=== PATIENT | female | born 1940 | race Caucasian/White ===

== ENCOUNTER 2017-12-23 10:39 | Outpatient (CLI) | payer OTHER, SELFPAY ==
--- NOTE | 2017-12-23 10:33 | DI.RAD_ITS ---
SYMPTOM/DIAGNOSIS: PAIN RIGHT KNEE: The bony structures are normally mineralized. The joint spaces appear intact. There is a question regarding the possibility of a small joint effusion.
== END 2017-12-23 10:59 ==
PROVIDERS: PCP Nurse Practitioner; Referring Provider Nurse Practitioner; Visit Provider Orthopaedic Surgery
DX: M25.561 Pain in right knee (principal); I12.9 Hypertensive chronic kidney disease with stage 1 through stage 4 chronic kidney disease, or unspecified chronic kidney disease; N18.9 Chronic kidney disease, unspecified; M17.11 Unilateral primary osteoarthritis, right knee
CPT/HCPCS: 20610; 99214; 73560; J1040

== ENCOUNTER 2017-12-23 12:09 | Outpatient (REF) | payer OTHER, SELFPAY | END 2017-12-23 12:29 | LOC: LBN 12:09 | PROVIDERS: PCP Nurse Practitioner; Visit Provider Orthopaedic Surgery | DX: M25.561 Pain in right knee (principal); M25.461 Effusion, right knee | CPT/HCPCS: 89060 ==

== ENCOUNTER 2018-01-01 09:07 | Outpatient (CLI) | payer OTHER, SELFPAY ==
[2018-01-01 09:51] LABS: Abs Immature Grans 0.02 k/cumm (0.0-0.09); Absolute Basophil Count 0.04 k/cumm (0.0-0.2); Absolute Eosinophil Count 0.26 k/cumm (0.0-0.7); Absolute Monocyte Count 0.69 k/cumm (0.11-0.7); Absolute Neutrophil Count 4.73 k/cumm (1.2-6.7); Basophils % 0.5; Eosinophils % 3.2; HCT 41.4 % (36.0-46.0); HGB 13.4 g/dL (12.0-15.5); Immature Grans % 0.2; Lymphocytes % 30.3; Mean Corp. HGB Concentration 32.4 g/dL (32.0-36.0); Mean Corpuscular Hemoglobin 28.9 pg (27.0-33.0); Mean Corpuscular Volume 89.2 fL (80-95); Mean Platelet Volume 9.7 fL (8.0-11.0); Monocytes % 8.4; Neutrophils % 57.4; Platelet Count 256 x1000/uL (130-400); RBC 4.64 m/cumm (4.00-5.20); RBC Distribution Width 13.8 % (11.7-14.6); White Blood Cell Count 8.24 k/cumm (4.4-10.8)
[2018-01-01 10:18] LABS: ALT 12 U/L (12-78); AST 17 U/L (15-37); Albumin 3.7 g/dL (3.4-5.0); Alkaline Phosphatase 116 U/L (46-116); BUN 23 mg/dL (7-18); Bilirubin, Total 0.5 mg/dL (0.2-1.0); Calcium 8.9 mg/dL (8.5-10.1); Chloride 105 mmol/L (98-107); Cholesterol 169 mg/dL (50-200); Estimated GFR 53.91 (mL/min/1.73m2); Glucose 107 mg/dL (70-100); HDL Cholesterol 62 mg/dL (40-60); LDL CHOLESTEROL 94 mg/dL (<100); Potassium 4.3 mmol/L (3.5-5.1); Sodium 141 mmol/L (136-145); Total Protein 6.9 g/dL (6.4-8.2); Triglyceride 52 mg/dL (30-150)
== END 2018-01-01 09:27 ==
PROVIDERS: PCP Nurse Practitioner; Visit Provider Nurse Practitioner
DX: I10 Essential (primary) hypertension (principal); E78.5 Hyperlipidemia, unspecified; F32.9 Major depressive disorder, single episode, unspecified
CPT/HCPCS: 36415; 80053; 80061; 83721; 85025

== ENCOUNTER → 2018-03-04 09:45 | Outpatient (BNVA) | payer OTHER, SELFPAY | PROVIDERS: PCP Nurse Practitioner; Referring Provider Nurse Practitioner; Visit Provider Orthopaedic Surgery | DX: M25.561 Pain in right knee (principal); M17.11 Unilateral primary osteoarthritis, right knee; I12.9 Hypertensive chronic kidney disease with stage 1 through stage 4 chronic kidney disease, or unspecified chronic kidney disease; N18.9 Chronic kidney disease, unspecified | CPT/HCPCS: 20610; 99213; 99243; J1040 ==

== ENCOUNTER → 2018-06-30 10:17 | Outpatient (BNVA) | payer OTHER, SELFPAY | PROVIDERS: PCP Nurse Practitioner; Referring Provider Nurse Practitioner; Visit Provider Orthopaedic Surgery | DX: M23.91 Unspecified internal derangement of right knee (principal); Z96.652 Presence of left artificial knee joint; I12.9 Hypertensive chronic kidney disease with stage 1 through stage 4 chronic kidney disease, or unspecified chronic kidney disease; N18.9 Chronic kidney disease, unspecified | CPT/HCPCS: 20610; 99213; J1040 ==

== ENCOUNTER 2018-08-19 08:08 | Outpatient (CLI) | payer OTHER, SELFPAY ==
[2018-08-19 09:41] LABS: Hemoglobin A1C 6.2 % (4.5-6.2)
[2018-08-19 09:43] LABS: ALT 22 U/L (12-78); AST 12 U/L (15-37); Albumin 3.7 g/dL (3.4-5.0); Alkaline Phosphatase 125 U/L (46-116); BUN 20 mg/dL (7-18); Bilirubin, Total 0.4 mg/dL (0.2-1.0); CREATININE 0.95 mg/dL (0.55-1.02); Calcium 8.9 mg/dL (8.5-10.1); Calculated LDL 98 mg/dL; Chloride 106 mmol/L (98-107); Cholesterol 162 mg/dL (50-200); Estimated GFR 57.04 (mL/min/1.73m2); Glucose 109 mg/dL (70-100); HDL Cholesterol 44 mg/dL (40-60); Potassium 4.5 mmol/L (3.5-5.1); Sodium 141 mmol/L (136-145); Total Protein 7.3 g/dL (6.4-8.2); Triglyceride 101 mg/dL (30-150)
== END 2018-08-19 08:28 ==
PROVIDERS: PCP Nurse Practitioner; Visit Provider Nurse Practitioner
DX: E11.9 Type 2 diabetes mellitus without complications (principal); E78.5 Hyperlipidemia, unspecified; F32.9 Major depressive disorder, single episode, unspecified; I10 Essential (primary) hypertension; N18.3 Chronic kidney disease, stage 3 (moderate); R73.01 Impaired fasting glucose
CPT/HCPCS: 36415; 80053; 80061; 83721; 83036

== ENCOUNTER 2019-08-08 02:03 | Outpatient (CLI) | payer OTHER, SELFPAY ==
[2019-08-08 09:27] LABS: Hemoglobin A1C 5.8 % (3.8-5.6)
[2019-08-08 11:12] LABS: ALT 24 U/L (14-59); AST 16 U/L (15-37); Albumin 3.8 g/dL (3.4-5.0); Alkaline Phosphatase 91 U/L (46-116); Anion Gap 10.1 mmol/L (3-11); BUN 19 mg/dL (7-18); Bilirubin, Total 0.6 mg/dL (0.2-1.0); CO2 24.9 mmol/L (21.0-32.0); CREATININE 1.13 mg/dL (0.55-1.02); Calcium 9.1 mg/dL (8.5-10.1); Calculated LDL 101 mg/dL (<100); Chloride 105 mmol/L (98-107); Cholesterol 177 mg/dL (<200); Estimated GFR 46.69 (mL/min/1.73m2); Glucose 103 mg/dL (74-106); HDL Cholesterol 58 mg/dL (40-60); Potassium 4.5 mmol/L (3.5-5.1); Sodium 140 mmol/L (136-145); Total Protein 7.5 g/dL (6.4-8.2); Triglyceride 93 mg/dL (<150)
== END 2019-08-08 02:23 ==
PROVIDERS: PCP Nurse Practitioner; Visit Provider Nurse Practitioner
DX: E78.5 Hyperlipidemia, unspecified (principal); R73.09 Other abnormal glucose; N18.3 Chronic kidney disease, stage 3 (moderate)
CPT/HCPCS: 36415; 80053; 80061; 83036

== ENCOUNTER 2019-09-26 01:52 | Outpatient (CLI) | payer OTHER, SELFPAY ==
[2019-09-26 09:22] LABS: Anion Gap 10.1 mmol/L (3-11); BUN 25 mg/dL (7-18); CO2 23.9 mmol/L (21.0-32.0); CREATININE 0.96 mg/dL (0.55-1.02); Calcium 9.6 mg/dL (8.5-10.1); Chloride 106 mmol/L (98-107); Estimated GFR 56.21 (mL/min/1.73m2); Glucose 110 mg/dL (74-106); Potassium 4.1 mmol/L (3.5-5.1); Sodium 140 mmol/L (136-145); Vitamin B12 355 pg/mL (193-986)
[2019-09-26 09:23] LABS: TSH (W/Ref FT4) < 0.01 uIU/mL (0.36-3.74)
[2019-09-26 09:39] LABS: FREE T4 2.71 ng/dL (0.76-1.46)
== END 2019-09-26 02:12 ==
PROVIDERS: PCP Nurse Practitioner; Visit Provider Nurse Practitioner
DX: I10 Essential (primary) hypertension (principal); R41.3 Other amnesia; R79.9 Abnormal finding of blood chemistry, unspecified
CPT/HCPCS: 36415; 80048; 82607; 84439; 84443

== ENCOUNTER 2019-11-04 18:02 | Inpatient (IN) | payer OTHER, SELFPAY ==
[2019-11-04] VITALS (44 sets, daily range): BP systolic 115–143; BP diastolic 50–110; PULSE 93–118; RESP 16–37; TEMP 36.7; O2SAT 82–95
--- NOTE | 2019-11-04 18:15 | RT.EKG_ITS ---
APPROVED REPORT Exam: Resting ECG Patient Location: E HR:98 bpm ECG Measurements Heart Rate 98 AXIS ND 167 P 49 QRSd 97 QRS 98 QT 382 T 47 QTc 488 Conclusion Sinus rhythm...normal P axis, V-rate 60- 99 Anterior infarct, old...Q >40mS, abnormal ST-T, V2-V5 question ST depression, lateral leads...ST <-0.07mV, I aVL V5 V6
--- NOTE | 2019-11-04 18:48 | W.ED.GENAD ---
Discharge Plan Disposition Patient Disposition: OTHER Condition: Serious Discharge Details Clinical Impression: CHF (congestive heart failure) Primary Care Provider: Jinny Camacho ED Provider: Edward Andrade Home Meds and New Rx's Prescriptions: No Action flu vacc quad 2018-(6mos up) 60 mcg (15 mcg x 4)/0.5 mL suspension 0.5 ml IM ONCE Qty: 0.5 RF: 0 methimazole 10 mg tablet 20 mg PO DAILY RF: 0 atorvastatin 40 mg tablet 20 mg PO DAILY Qty: 45 RF: 3 fluoxetine 20 mg capsule 20 mg PO HS Qty: 90 RF: 3 lisinopril 20 mg tablet 20 mg PO DAILY Qty: 90 RF: 3 acetaminophen [Acetaminophen Extra Strength] 500 MG tablet 500 mg PO Q4H PRN Qty: 2 RF: 0 atenolol 25 mg tablet 12.5 mg PO BID RF: 0 Medical Decision Making 79-year-old female presents with 2-week history of worsening dyspnea. Denies any cardiac or pulmonary history. She presents initially with mild tachycardia and mild tachypnea. She is able to speak in full sentences does not appear to be in any acute distress. Clinically the differential includes but not excluded to CHF, PE, ACS, infectious process, etc. Will initiate cardiac work-up including a TSH with T4 reflex given new diagnosis of Graves'. Given the tachycardia and dyspnea will obtain CTA of the chest as opposed to chest x-ray. Laboratory values reveal a white count of 9.42 hemoglobin 11.3 hematocrit 36.4 platelet count 258. INR 1.1. Electrolytes unremarkable. BUN 15, creatinine 0.91 with a GFR 59.79. Glucose 119, magnesium 1.7. Initial troponin less than 0.05. BNP 16,181. TSH less than 0.01 with a free T4 of 1.14. Chest CTA reveals cardiomegaly most consistent with CHF, moderate right greater than left pleural effusions. Mild dependent subsegmental atelectasis. No pulmonary artery emboli are seen. Heart rate and blood pressure are trending downward. Patient given 40 IV Lasix and subsequently has urinated multiple times, at this point a total output of over 650 cc. Repeat troponin less than 0.05 Patient appears to be a new onset CHF. She continues to have dyspnea although she subsequently takes off her oxygen as she does not like the nasal cannula. She has to be reminded to keep it on. I believe with a BNP of over 16,000 keeping her in the hospital for diuresis and further work-up is reasonable. I will discuss this with our hospitalist team. In the meantime I was able to speak with her daughter, Lore, at [phone] to make her aware of her mother's visit and admission. Medical Records Medical records reviewed: Yes I reviewed the patient's medical records. Lab Data Lab results reviewed: Yes I reviewed the patient's lab results. Lab results narrative: Laboratory Tests Range/Units 11/04/19 11/04/19 11/04/19 18:40 18:40 18:40 WBC (4.4-10.8) 10^3/uL 9.42 RBC (3.93-5.22) 10^6/uL 4.11 Hgb (11.2-15.7) g/dL 11.3 Hct (36.0-46.0) % 36.4 MCV (80-95) fL 88.6 MCH (27.0-33.0) pg 27.5 MCHC (32.0-36.0) % 31.0 L RDW (11.7-14.6) % 14.0 Plt Count (130-400) 10^3/uL 258 MPV (8.0-11.0) fL 9.7 Immature Gran % 0.2 Neutrophils % 50.4 Lymphocytes % 34.9 Monocytes % 9.1 Eosinophils % 4.8 Basophils % 0.6 Nucleated RBC % % 0 Absolute Neutrophils (1.2-6.7) 10^3/uL 4.74 Absolute Lymphocytes (1.2-3.4) 10^3/uL 3.29 Absolute Monocytes (0.1-0.8) 10^3/uL 0.86 H Absolute Eosinophils (0.0-0.7) 10^3/uL 0.45 Absolute Basophils (0.0-0.2) 10^3/uL 0.06 PT (9.3-11.0) sec 11.1 H INR (0.9-1.1) 1.1 APTT (21.0-31.4) sec 22.3 Sodium (136-145) mmol/L 136 Potassium (3.5-5.1) mmol/L 3.7 Chloride (98-107) mmol/L 103 Carbon Dioxide (21.0-32.0) mmol/L 22.0 Anion Gap (3-11) mmol/L 11.0 BUN (7-18) mg/dL 15 Creatinine (0.55-1.02) mg/dL 0.91 Estimated GFR/1.73 m2 (mL/min/1.73m2) 59.79 Glucose (74-106) mg/dL 119 H Calcium (8.5-10.1) mg/dL 8.7 Magnesium (1.8-2.4) mg/dL 1.7 L Total Bilirubin (0.2-1.0) mg/dL 0.4 AST (15-37) U/L 16 ALT (14-59) U/L 21 Alkaline Phosphatase (46-116) U/L 125 H Troponin I (<0.06) ng/mL < 0.05 NT-Pro-B Natriuret Pep (<300) pg/mL 87285 H Total Protein (6.4-8.2) g/dL 7.4 Albumin (3.4-5.0) g/dL 3.4 TSH (0.36-3.74) uIU/mL Free T4 (0.76-1.46) ng/dL Range/Units 11/04/19 11/04/19 18:40 21:35 WBC (4.4-10.8) 10^3/uL RBC (3.93-5.22) 10^6/uL Hgb (11.2-15.7) g/dL Hct (36.0-46.0) % MCV (80-95) fL MCH (27.0-33.0) pg MCHC (32.0-36.0) % RDW (11.7-14.6) % Plt Count (130-400) 10^3/uL MPV (8.0-11.0) fL Immature Gran % Neutrophils % Lymphocytes % Monocytes % Eosinophils % Basophils % Nucleated RBC % % Absolute Neutrophils (1.2-6.7) 10^3/uL Absolute Lymphocytes (1.2-3.4) 10^3/uL Absolute Monocytes (0.1-0.8) 10^3/uL Absolute Eosinophils (0.0-0.7) 10^3/uL Absolute Basophils (0.0-0.2) 10^3/uL PT (9.3-11.0) sec INR (0.9-1.1) APTT (21.0-31.4) sec Sodium (136-145) mmol/L Potassium (3.5-5.1) mmol/L Chloride (98-107) mmol/L Carbon Dioxide (21.0-32.0) mmol/L Anion Gap (3-11) mmol/L BUN (7-18) mg/dL Creatinine (0.55-1.02) mg/dL Estimated GFR/1.73 m2 (mL/min/1.73m2) Glucose (74-106) mg/dL Calcium (8.5-10.1) mg/dL Magnesium (1.8-2.4) mg/dL Total Bilirubin (0.2-1.0) mg/dL AST (15-37) U/L ALT (14-59) U/L Alkaline Phosphatase (46-116) U/L Troponin I (<0.06) ng/mL < 0.05 NT-Pro-B Natriuret Pep (<300) pg/mL Total Protein (6.4-8.2) g/dL Albumin (3.4-5.0) g/dL TSH (0.36-3.74) uIU/mL < 0.01 L Free T4 (0.76-1.46) ng/dL 1.14 ECG Data Attestation: I personally reviewed and interpreted this ECG (s) as follows: Interpretation: Please see official report by Dr. Ren. Sinus rhythm, ventricular rate of 98, question mild ST depression, no STEMI. HPI General Mode of arrival: ambulatory. Date/Time Provider Initiated Documentation: 11/04/19 18:34. Limitations to Documentation: no limitations. Information obtained by: patient. HPI Narrative: This is a 79-year-old female with history of recently diagnosed Graves' disease, forgetfulness, depression, former smoker, hyperlipidemia, chronic kidney disease, hypertension, anxiety, GERD, presenting at the request of urgent care for ongoing and worsening dyspnea over the past 2 weeks. She denies fever, chest pain, productive cough, abdominal pain, nausea, vomiting, recent travel, sick contacts, pain or swelling in her legs. She reports a mild dry cough which she reports is near which she would describe as her baseline. She denies any cardiac history. She has never experienced anything like this before. Does not wear oxygen at home. Related Data Home Medications Medication Instructions Recorded Confirmed acetaminophen [Acetaminophen Extra 500 mg PO Q4H PRN #2 12/21/12 10/17/19 Strength] atorvastatin 40 mg tablet 20 mg PO DAILY #45 tab-cap 10/10/19 11/04/19 fluoxetine 20 mg capsule 20 mg PO HS #90 tab 10/10/19 11/04/19 lisinopril 20 mg tablet 20 mg PO DAILY #90 tab-cap 10/10/19 11/04/19 methimazole 10 mg tablet 20 mg PO DAILY tab 10/17/19 11/04/19 atenolol 25 mg tablet 12.5 mg PO BID tab 11/04/19 11/04/19 Previous Rx's Medication Instructions Recorded atorvastatin 40 mg tablet 20 mg PO DAILY #45 tab-cap 10/10/19 fluoxetine 20 mg capsule 20 mg PO HS #90 tab 10/10/19 lisinopril 20 mg tablet 20 mg PO DAILY #90 tab-cap 10/10/19 Allergies Allergy/AdvReac Type Severity Reaction Status Date / Time Sulfa (Sulfonamide Allergy Unknown ? Verified 10/10/19 11:24 Antibiotics) Penicillins Allergy RASH Verified 10/10/19 11:24 acetaminophen AdvReac Intermediate N,V Verified 10/10/19 11:24 meperidine AdvReac Unknown VOMITING Verified 10/10/19 11:24 hydrocodone bitartrate AdvReac NAUSEA/VOMI Verified 10/10/19 11:24 [From Vicodin] TING propoxyphene napsylate AdvReac NAUSEA/VOMI Verified 10/10/19 11:24 [From Darvocet-N 100] TING General Stated Complaint: SOB CHINTAN: 3 Review of Systems Constitutional Constitutional: Denies fatigue and Denies fever(s) ENT Ears, Nose, Mouth, and Throat: Denies neck pain and Denies sore throat Cardiovascular Cardiovascular: Denies chest pain and Reports dyspnea Respiratory Respiratory: Reports cough and Reports dyspnea Gastrointestinal Gastrointestinal: Denies abdominal pain, Denies nausea and Denies vomiting Genitourinary Genitourinary: Denies dysuria Musculoskeletal Musculoskeletal: Denies back pain, Denies neck pain, Denies numbness and Denies tingling Integumentary/Breasts Skin/Breast: Denies rash Neurologic Neurologic: Denies numbness and Denies tingling Endocrine Endocrine: Denies fatigue Hematologic/Lymphatic Hematologic/Lymphatic: Denies easy bleeding and Denies easy bruising [facility] Medical History Anxiety Benign hypertension CKD (chronic kidney disease) Depression Depression (04/14/14) Elevated hemoglobin A1c Hyperlipidemia Hyperthyroidism IFG (impaired fasting glucose) OA (osteoarthritis) Surgical History Extraction of cataract B/L Replacement of total knee joint (10/04/07) LEFT Family History Mother , ??? at age 56. Neoplasm Abdominal Father , Heart issues at age 77. Heart disease Myocardial infarction Neoplasm Colon CA dx'ed ??? Son Diabetes Daughter No problems noted. Social History Smoking/Tobacco Use Status: Former Tobacco Use Alcohol Intake: current Alcohol Intake frequency: holidays/special occasions only Drug use: Never Substance use type: does not use Caregiver/Support person: No Housing: apartment Number of Children: 2 Communication Needs: None current occupation: Retired Current gender identity: female What type of physical activity do you participate in: walking Duration: 15-30 minutes/day Frequency: daily Seatbelt use: always Water heater temp set <120 deg: Yes Working smoke detector in home: Yes Fire extinguisher in home: Yes Carbon monox detector in home: Yes Do you feel safe at home: Yes Exam Const General: cooperative, healthy appearing, comfortable and no acute distress Orientation: alert and awake [facility] Head: normal to inspection, normocephalic and atraumatic Face and sinus: normal facial exam Mouth: moist mucous membranes Eyes Conjunctivae: conjunctivae normal Sclera: sclerae normal Neck Neck: normal visual inspection, full ROM, trachea midline, supple and nontender Resp Effort & Inspection: normal respiratory effort and able to speak in complete sentences Auscultation: diminished lung sounds bilaterally in the lower lung wilkes and rales bilaterally in the mid lung wilkes and in the lower lung wilkes Cardio Rate: tachycardic (108) Rhythm: regular rhythm GI Palpation: soft and nontender Back/Spine/Pelvis Back: No back tenderness Skin General skin exam: no rashes or lesions noted Neuro General: patient alert, patient awake, moves all extremities and no focal motor deficits Speech: speech normal Motor: muscle tone normal throughout and strength 5/5 throughout Sensory Exam: no sensory deficits noted Extrem General: normal to inspection, full ROM, capillary refill normal, no pedal edema and no calf tenderness Psych Appearance: grossly normal Mental Status: mental status grossly normal Course Vital Signs Vital signs: Vital Signs Temperature 36.7 C 11/04/19 18:17 Pulse 106 H 11/04/19 18:17 Respiratory Rate 26 H 11/04/19 18:17 Blood Pressure 115/96 H 11/04/19 18:17 Pulse Oximetry 95 11/04/19 18:17 Temperature 36.7 C 11/04/19 18:17 Pulse 106 H 11/04/19 18:17 Respiratory Rate 24 11/04/19 18:24 Respiratory Effort 11/04/19 18:24 Respiratory Depth Normal 11/04/19 18:24 Respiratory Pattern Normal 11/04/19 18:24 Blood Pressure 115/96 H 11/04/19 18:17 Blood Pressure Position Supine 11/04/19 18:17 Pulse Oximetry 95 11/04/19 18:17 Oxygen Delivery Method Room Air 11/04/19 18:17 Oxygen Flow Rate 0 11/04/19 18:17 Pain Level 0 11/04/19 18:17
[2019-11-04 19:03] LABS: Abs Immature Grans 0.02 10^3/uL (0.0-0.06); Absolute Basophil Count 0.06 10^3/uL (0.0-0.2); Absolute Eosinophil Count 0.45 10^3/uL (0.0-0.7); Absolute Lymphocyte Count 3.29 10^3/uL (1.2-3.4); Absolute Monocyte Count 0.86 10^3/uL (0.1-0.8); Absolute Neutrophil Count 4.74 10^3/uL (1.2-6.7); Basophils % 0.6; Eosinophils % 4.8; HCT 36.4 % (36.0-46.0); HGB 11.3 g/dL (11.2-15.7); Immature Grans % 0.2; Lymphocytes % 34.9; MCH 27.5 pg (27.0-33.0); MCV 88.6 fL (80-95); MPV 9.7 fL (8.0-11.0); Monocytes % 9.1; Neutrophils % 50.4; Nucleated RBC 0 %; Platelet Count 258 10^3/uL (130-400); RBC 4.11 10^6/uL (3.93-5.22); RDW-SD 44.8 fL; WBC 9.42 10^3/uL (4.4-10.8)
[2019-11-04 19:18] LABS: INR 1.1 (0.9-1.1); PTT Activated 22.3 sec (21.0-31.4); Prothrombin Time 11.1 sec (9.3-11.0)
[2019-11-04 19:28] LABS: ALT 21 U/L (14-59); AST 16 U/L (15-37); Albumin 3.4 g/dL (3.4-5.0); Alkaline Phosphatase 125 U/L (46-116); BUN 15 mg/dL (7-18); Bilirubin, Total 0.4 mg/dL (0.2-1.0); CREATININE 0.91 mg/dL (0.55-1.02); Calcium 8.7 mg/dL (8.5-10.1); Chloride 103 mmol/L (98-107); Estimated GFR 59.79 (mL/min/1.73m2); Glucose 119 mg/dL (74-106); Magnesium 1.7 mg/dL (1.8-2.4); NT-proBNP 16181 pg/mL (<300); Potassium 3.7 mmol/L (3.5-5.1); Sodium 136 mmol/L (136-145); Total Protein 7.4 g/dL (6.4-8.2); Troponin I < 0.05 ng/mL (<0.06)
[2019-11-04] MEDS: Ondansetron 4 MG/2 ML VIAL IVP ×2 (19:36→20:59)
--- NOTE | 2019-11-04 19:54 | NUR.NOTE ---
Nursing Note: Patient rang call powell stating that she believes oxygen is making her sick, no no longer has oxygen flowing. Sats sitting around 88-91%. Provider aware.
[2019-11-04] MEDS: Normal Saline Flush 10 ML SYR IVP ×2 (20:18→21:14)
[2019-11-04] MEDS: Normal Saline - Diluent 50 ML VIAL IV (20:19)
[2019-11-04] MEDS: Omnipaque 350 MG/ML 100 ML BTL IJ (20:21)
--- NOTE | 2019-11-04 20:30 | DI.CT_ITS ---
EXAM: CT CHEST PE CTA CLINICAL HISTORY: Shortness of breath, tachycardia TECHNIQUE: COMPARISON: No exams were available for comparison FINDINGS: CT angiography of the chest was performed with intravenous infusion 60 cc of Omnipaque 350. There are moderate-sized bilateral pleural effusions. There is moderate cardiomegaly with left ventr icular enlargement. There are mild diffuse pulmonary interstitial changes consistent with mild pulmo nary edema. No evidence of pulmonary embolic disease. Mild dilatation of right and left pulmonary arteries noted suggesting chronic pulmonary arterial hyper tension. Thoracic aorta is of normal diameter. No mediastinal or hilar adenopathy. Images obtained through the upper abdomen show unremarkable appearance of visualized portions of live r, spleen, pancreas, adrenals, and kidneys. IMPRESSION: Findings consistent with CHF. No evidence of pulmonary embolic disease RADIATION DOSE DELIVERED: Total DLP
--- NOTE | 2019-11-04 20:50 | DI.VRAD_ITS ---
PROCEDURE INFORMATION: Exam: CT Angiography Chest With Contrast Exam date and time: 11/04/2019 18:48 Age: 79 years old Clinical indication: Shortness of breath TECHNIQUE: Imaging protocol: Computed tomographic angiography of the chest with intravenous contrast. 3D rendering (Not supervised by radiologist): MIP and/or 3D reconstructed images were created by the technologist. Radiation optimization: All CT scans at this facility use at least one of these dose optimization techniques: automated exposure control; mA and/or kV adjustment per patient size (includes targeted exams where dose is matched to clinical indication); or iterative reconstruction. Contrast material: [id number]; Contrast volume: 60 ml; Contrast route: INTRAVENOUS (IV); COMPARISON: No relevant prior studies available. FINDINGS: Pulmonary arteries: Enlarged central pulmonary arteries suggesting pulmonary artery hypertension. No pulmonary artery emboli are seen. Aorta: No aortic aneurysm. No aortic dissection. Lungs: Mild dependent subsegmental atelectasis. Motion in the lungs. Suspected mild interstitial edema. Pleural space: Moderate right greater than left pleural effusions. No pneumothorax. Heart: Moderate cardiomegaly. Dilation of the left ventricle and left atrium. Dilation of the right atrium. No right ventricular dilation at a proportion to left ventricular dilation. Lymph nodes: No enlarged lymph nodes. Bones/joints: Degenerative changes in the spine. No acute fracture or subluxation. Soft tissues: No suspicious lesions. IMPRESSION: 1. Moderate cardiomegaly. Findings most consistent with CHF. 2. Moderate right greater than left pleural effusions. 3. Mild dependent subsegmental atelectasis. 4. No pulmonary artery emboli are seen. Dictated and Authenticated by: Melissa Borjas MD. Ordering:KAVON Leon MD
[2019-11-04] MEDS: Furosemide 40 MG/4 ML VIAL IVP (21:11)
[2019-11-04 21:41] LABS: TSH (W/Ref FT4) < 0.01 uIU/mL (0.36-3.74)
[2019-11-04 21:55] LABS: Troponin I < 0.05 ng/mL (<0.06)
[2019-11-04 21:57] LABS: FREE T4 1.14 ng/dL (0.76-1.46)
[2019-11-05] VITALS (7 sets, daily range): BP systolic 90–125; BP diastolic 58–71; PULSE 74–93; RESP 16–18; TEMP 36.3–36.9; O2SAT 92–97
[2019-11-05] MEDS: FLUoxetine 20 MG CAP PO ×2 (00:47→21:38)
[2019-11-05] MEDS: Atenolol 25 MG TAB 12.5 MG PO ×3 (00:48→19:44)
[2019-11-05] MEDS: Enoxaparin 40 MG/0.4 ML SYR SC ×2 (00:48→21:39)
[2019-11-05 07:24] LABS: Anion Gap 9.2 mmol/L (3-11); BUN 15 mg/dL (7-18); CO2 24.8 mmol/L (21.0-32.0); CREATININE 1.13 mg/dL (0.55-1.02); Calcium 8.6 mg/dL (8.5-10.1); Chloride 104 mmol/L (98-107); Estimated GFR 46.57 (mL/min/1.73m2); Glucose 96 mg/dL (74-106); Potassium 3.6 mmol/L (3.5-5.1); Sodium 138 mmol/L (136-145); Troponin I 0.05 ng/mL (<0.06)
--- NOTE | 2019-11-05 09:18 | INITIAL_ITS ---
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 She remains independent in the community with ADLs. She is , has a daughter, Adriana who resides in [place] and close friends around as well. CURRENT FUNCTIONAL STATUS:: PUI: awaiting test results prior to assessment. Has patient been provided with info about the portal/API?: Yes Did the patient sign up for the portal?: No CODE STATUS:: Full Code INSURANCE COVERAGE / FINANCIAL ISSUES:: [facility] CURRENT HOME/COMMUNITY SERVICES/EQUIPMENT:: No current services. PRIMARY CARE PHYSICIAN:: Jinny Camacho POTENTIAL DISCHARGE NEEDS:: Evaluation for further needs, follow up appointments. PATIENT/FAMILY EDUCATION NEEDS:: Review discharge instructions, discuss Ask Me Three. ANTICIPATED BARRIERS TO DISCHARGE:: None identified. TRANSPORTATION:: Via private vehicle with a friend. PLAN:: Caitlin will continue to be closely monitored and treated for new onset CHF attributed currently to recent Graves disease diagnosis. She remains a PUI at this time. She will be evaluated for further needs prior to discharge; CM continues to follow.
[2019-11-05] MEDS: Lisinopril 20 MG TAB PO (10:01)
[2019-11-05] MEDS: Atorvastatin 40 MG TAB 20 MG PO (10:17)
[2019-11-05] MEDS: methIMAzole 5 MG TAB 20 MG PO (10:18)
[2019-11-05] MEDS: Normal Saline Flush 10 ML SYR IVP ×3 (10:19→16:25)
[2019-11-05] MEDS: Furosemide 40 MG/4 ML VIAL IVP ×2 (10:20→16:26)
--- NOTE | 2019-11-05 10:49 | HPE_ITS ---
Date of service: 11/05/19 Time of Service: 10:49 Assessment and Plan Assessment and plan (1) CHF (congestive heart failure): Status: Chronic Assessment and plan: New onset CHF. Based on her CT scan looks like she has evidence of both right and left heart failure however the timing of her symptoms seems to coincide with the timing of her diagnosis of Graves' disease. Echocardiogram is needed to further clarify the etiology of her congestive heart failure. Differential diagnosis includes longstanding essential hypertension, valvular heart disease (note she has had a history of rheumatic fever), ischemic heart disease, high output heart failure secondary to Graves' disease. We will continue diuresis until she is euvolemic. We will monitor her BMP and proBNP and obtain a formal echocardiogram on Thursday morning. We will get a [id number] ultrasound of her heart and lungs this morning to obtain some clue of her LV and RV function. Once she is euvolemic we will titrate her lisinopril which she is already on for her blood pressure. Depending on her LV function we may need to adjust her beta-blockers. Qualifiers: Heart failure type: unspecified Heart failure chronicity: acute Qualified Code(s): I50.9 - Heart failure, unspecified (2) Graves disease: Status: Acute Assessment and plan: Continue her atenolol and her methimazole Although her methimazole dose may need to be adjusted. Despite her TSH being less than 0.01 her free T4 has now returned within normal limits at 1.14 from his previous value 2.71. (3) Hyperlipidemia: Status: Acute Assessment and plan: Continue her atorvastatin. Qualifiers: Hyperlipidemia type: pure hypercholesterolemia Qualified Code(s): E78.00 - Pure hypercholesterolemia, unspecified (4) Benign hypertension: Status: Chronic Assessment and plan: Continue lisinopril and atenolol with adjustment of her medications based on her echocardiogram. History of Present Illness History of Present Illness Chief Complaint: Dyspnea Narrative: 79-year-old female with a past medical history significant for essential hypertension, hyperlipidemia who was recently diagnosed with Graves' disease approximately a month ago started on methimazole now presents emergency department with worsening dyspnea. She has had exertional dyspnea not associat ed with any chest pain for about the last month. She denies any pedal edema or increased abdominal girth or increased weight gain. Fact she says she is actually lost weight due to the Graves' disease. She has had no exertional chest pain or pressure or palpitations. So the Graves' disease was suspected by her PCP due to fast heart rates documented in the office. Her PCP did screening thyroid studies and found her to be hyperthyroid and referred her to an courtroom reporter at [facility]. Patient denies any cough or sputum production and has no chest pain and no fever or chills. She denies any contacts with ill people and has not traveled outside the [facility] [place], [place] in the past month. She has had no known exposure to COVID- 19 patients. Her evaluation emergency department included a CBC that was unremarkable. CMP from last night was unremarkable. Troponin studies x3 sets were normal. Her proBNP was elevated at 16,000. CT of her chest was performed with contrast and showed moderate cardiomegaly along with findings consistent with CHF including mild interstitial edema moderate right pleural effusion small left pleural effusion and a dilated left ventricle and left atrium and a dilated right atrium. No pulmonary emboli were seen and no aneurysm was seen. She had enlarged central pulmonary arteries suggestive of pulmonary artery hypertension. Patient was treated in the emergency department with IV Lasix and was admitted for further evaluation of new onset CHF. Review of Systems All systems reviewed & are unremarkable except as noted in HPI and below PFSH Medical History Anxiety Benign hypertension CKD (chronic kidney disease) Depression Depression (04/14/14) Elevated hemoglobin A1c Hyperlipidemia Hyperthyroidism IFG (impaired fasting glucose) OA (osteoarthritis) Surgical History Extraction of cataract B/L Replacement of total knee joint (10/04/07) LEFT Family History Mother , ??? at age 56. Neoplasm Abdominal Father , Heart issues at age 77. Heart disease Myocardial infarction Neoplasm Colon CA dx'ed ??? Son Diabetes Daughter No problems noted. Social History Smoking/Tobacco Use Status: Former Tobacco Use Alcohol Intake: current Alcohol Intake frequency: holidays/special occasions only Drug use: Never Substance use type: does not use Caregiver/Support person: No Housing: apartment Number of Children: 2 Communication Needs: None current occupation: Retired Current gender identity: female What type of physical activity do you participate in: walking Duration: 15-30 minutes/day Frequency: daily Seatbelt use: always Water heater temp set <120 deg: Yes Working smoke detector in home: Yes Fire extinguisher in home: Yes Carbon monox detector in home: Yes Do you feel safe at home: Yes Meds Home Medications and Allergies Home Medications Medication Instructions Recorded Confirmed Type acetaminophen [Acetaminophen Extra 500 mg PO Q4H PRN #2 12/21/12 10/17/19 History Strength] flu vacc quad 2018-(6mos up) 60 0.5 ml IM ONCE #0.5 ml 01/28/18 07/29/18 Clinic mcg (15 mcg x 4)/0.5 mL IM susp atorvastatin 40 mg tablet 20 mg PO DAILY #45 tab-cap 10/10/19 11/04/19 Rx fluoxetine 20 mg capsule 20 mg PO HS #90 tab 10/10/19 11/04/19 Rx lisinopril 20 mg tablet 20 mg PO DAILY #90 tab-cap 10/10/19 11/04/19 Rx methimazole 10 mg tablet 20 mg PO DAILY tab 10/17/19 11/04/19 History atenolol 25 mg tablet 12.5 mg PO BID tab 11/04/19 11/04/19 History Allergies Allergy/AdvReac Type Severity Reaction Status Date / Time Sulfa (Sulfonamide Allergy Unknown ? Verified 10/10/19 11:24 Antibiotics) Penicillins Allergy RASH Verified 10/10/19 11:24 acetaminophen AdvReac Intermediate N,V Verified 10/10/19 11:24 meperidine AdvReac Unknown VOMITING Verified 10/10/19 11:24 hydrocodone bitartrate AdvReac NAUSEA/VOMI Verified 10/10/19 11:24 [From Vicodin] TING propoxyphene napsylate AdvReac NAUSEA/VOMI Verified 10/10/19 11:24 [From Darvocet-N 100] TING Exam Narrative Exam Narrative: Elderly female lying in bed in no discomfort. She is alert and oriented person place time circumstance. Respirations are nonlabored. She is able to talk in complete paragraphs. HEENT is unremarkable. Neck supple nontender no overt JVD normal carotid pulses with soft bruit over the left carotid. No palpable thyromegaly. No palpable thyroid nodules. No cervical adenopathy. Lungs are clear to auscultation anteriorly however posterior bases with fine bibasilar rales. No rhonchi or wheezing. Heart regular rate and rhythm no appreciable murmur rub or gallop. Abdomen soft nontender nondistended no bruits no palpable masses no organomegaly. Lower extremities without peripheral cyanosis or edema. No calf tenderness. Normal pedal pulses. Neuro exam grossly intact no focal deficits. Genitalia rectal exam deferred. Results Labs Result diagrams: 11/04/19 18:40 11/05/19 06:50 Labs: Laboratory Results - last 24 hr 11/04/19 11/04/19 11/04/19 18:40 18:40 18:40 WBC 9.42 RBC 4.11 Hgb 11.3 Hct 36.4 MCV 88.6 MCH 27.5 MCHC 31.0 L RDW 14.0 Plt Count 258 MPV 9.7 Immature Gran % 0.2 Neutrophils % 50.4 Lymphocytes % 34.9 Monocytes % 9.1 Eosinophils % 4.8 Basophils % 0.6 Nucleated RBC % 0 Absolute Neutrophils 4.74 Absolute Lymphocytes 3.29 Absolute Monocytes 0.86 H Absolute Eosinophils 0.45 Absolute Basophils 0.06 PT 11.1 H INR 1.1 APTT 22.3 Sodium 136 Potassium 3.7 Chloride 103 Carbon Dioxide 22.0 Anion Gap 11.0 BUN 15 Creatinine 0.91 Estimated GFR/1.73 m2 59.79 Glucose 119 H Calcium 8.7 Magnesium 1.7 L Total Bilirubin 0.4 AST 16 ALT 21 Alkaline Phosphatase 125 H Troponin I < 0.05 NT-Pro-B Natriuret Pep 05076 H Total Protein 7.4 Albumin 3.4 TSH Free T4 11/04/19 11/04/19 11/05/19 18:40 21:35 06:50 WBC RBC Hgb Hct MCV MCH MCHC RDW Plt Count MPV Immature Gran % Neutrophils % Lymphocytes % Monocytes % Eosinophils % Basophils % Nucleated RBC % Absolute Neutrophils Absolute Lymphocytes Absolute Monocytes Absolute Eosinophils Absolute Basophils PT INR APTT Sodium 138 Potassium 3.6 Chloride 104 Carbon Dioxide 24.8 Anion Gap 9.2 BUN 15 Creatinine 1.13 H Estimated GFR/1.73 m2 46.57 Glucose 96 Calcium 8.6 Magnesium Total Bilirubin AST ALT Alkaline Phosphatase Troponin I < 0.05 0.05 NT-Pro-B Natriuret Pep Total Protein Albumin TSH < 0.01 L Free T4 1.14 Last Vital Signs Temp 36.9 C 11/05/19 10:04 Pulse 90 11/05/19 10:04 Resp 16 11/05/19 10:04 BP 115/69 11/05/19 10:04 Pulse Ox 97 11/05/19 10:04 COVID-19 Screening Have you,or household,traveled outside [place] in last 14 days?: No Had IN PERSON contact w/suspected or confirmed C-19 person: No
--- NOTE | 2019-11-05 13:37 | PHA.REVIEW ---
Pharmacy Admission Review - Admission Clinical Review (Last Reviewed 11/05/19 @ 10:53 by Edward Costa) Graves disease (Acute 10/12/19) Hyperlipidemia (Acute 04/24/11) Sulfa (Sulfonamide Antibiotics) Allergy (Unknown, Verified 10/10/19 11:24) ? Penicillins Allergy (Verified 10/10/19 11:24) RASH acetaminophen Adverse Reaction (Intermediate, Verified 10/10/19 11:24) N,V meperidine Adverse Reaction (Unknown, Verified 10/10/19 11:24) VOMITING hydrocodone bitartrate [From Vicodin] Adverse Reaction (Verified 10/10/19 11:24) NAUSEA/VOMITING propoxyphene napsylate [From Darvocet-N 100] Adverse Reaction (Verified 10/10/19 11:24) NAUSEA/VOMITING Height 5 ft 4 in Weight 58.513 kg - Renal Dosing Renal Dosing: BUN 15 mg/dL (7-18) 11/05/19 06:50 Creatinine 1.13 mg/dL (0.55-1.02) H 11/05/19 06:50 Medications needing adjustments: Reviewed (CRCL ~35ML/MIN) - Anticoagulation Anticoagulation: Hgb 11.3 g/dL (11.2-15.7) 11/04/19 18:40 Hct 36.4 % (36.0-46.0) 11/04/19 18:40 Plt Count 258 10^3/uL (130-400) 11/04/19 18:40 INR 1.1 (0.9-1.1) 11/04/19 18:40 Creatinine 1.13 mg/dL (0.55-1.02) H 11/05/19 06:50 DVT Prohphylaxis: Reviewed Medications: Enoxaparin Therapeutic Anticoagulation: N/A - Relevant Labs Sodium 138 mmol/L (136-145) 11/05/19 06:50 Potassium 3.6 mmol/L (3.5-5.1) 11/05/19 06:50 Chloride 104 mmol/L (98-107) 11/05/19 06:50 Magnesium 1.7 mg/dL (1.8-2.4) L 11/04/19 18:40 Electrolytes, C-Reactive P, ESR: Reviewed - DM Control DM Control: Glucose 96 mg/dL (74-106) 11/05/19 06:50 Insulin Dosing: N/A - Heart Failure/NJ Heart Failure/NJ: Troponin I 0.05 ng/mL (<0.06) 11/05/19 06:50 NT-Pro-B Natriuret Pep 85809 pg/mL (<300) H 11/04/19 18:40 EF%, OTTO's, B-Blockers, Diuretics: Reviewed (possibly assoc with graves disease . taking furosemide, lisinopril, atenolol) - BP Control BP Control: Blood Pressure 104/64 Blood Pressure 115/69 Blood Pressure 125/63 If elevated: N/A - Qtc Review If Elevated: N/A - IV to PO Switch IV Medications: Reviewed (iv furosemide) - Home Meds Home Med List reviewed: Reviewed (ordered) - Current meds Current Medication Order Review: Reviewed - Comments Comments/Follow Ups: PUI due to SOB. Covid 19 result pending
[2019-11-05 14:43] LABS: COVID-19 RT-PCR UVMMC Result Negative (Negative)
--- NOTE | 2019-11-05 17:35 | NUR.NOTE ---
Pt has lengthening QTc (0.45 arrival and now0.50). Jessica Raines RN, MS coordinator being notified. Med review shows possible Prozac and D/Cd Zofran as lengthening QT meds. Nursing Note:
[2019-11-05] MEDS: Potassium Chloride 20 MEQ TABCR PO (19:44)
[2019-11-06] VITALS (12 sets, daily range): BP systolic 90–112; BP diastolic 58–69; PULSE 75–86; RESP 16–18; TEMP 36.1–36.9; O2SAT 92–96
[2019-11-06 07:38] LABS: Anion Gap 9.3 mmol/L (3-11); BUN 22 mg/dL (7-18); CO2 24.7 mmol/L (21.0-32.0); CREATININE 1.16 mg/dL (0.55-1.02); Calcium 8.6 mg/dL (8.5-10.1); Chloride 102 mmol/L (98-107); Estimated GFR 45.18 (mL/min/1.73m2); Glucose 91 mg/dL (74-106); NT-proBNP 14247 pg/mL (<300); Potassium 3.5 mmol/L (3.5-5.1); Sodium 136 mmol/L (136-145)
[2019-11-06] MEDS: Atorvastatin 20 MG TAB PO (08:42)
[2019-11-06] MEDS: Atenolol 25 MG TAB 12.5 MG PO (08:42)
[2019-11-06] MEDS: Potassium Chloride 20 MEQ TABCR PO ×2 (08:43→19:54)
[2019-11-06] MEDS: methIMAzole 5 MG TAB 20 MG PO (08:43)
--- NOTE | 2019-11-06 10:46 | W.PM.PROGNOT ---
Date of Service Date of service: 11/06/19 Time of Service: 10:46 Assessment and Plan Assessment and plan (1) CHF (congestive heart failure): Status: Chronic Assessment and plan: New onset CHF. Based on her CT scan looks like she has evidence of both right and left heart failure however the timing of her symptoms seems to coincide with the timing of her diagnosis of Graves' disease. Echocardiogram is needed to further clarify the etiology of her congestive heart failure. Differential diagnosis includes longstanding essential hypertension, valvular heart disease (note she has had a history of rheumatic fever), ischemic heart disease, high output heart failure secondary to Graves' disease. IV diuretics been discontinued. Will start low-dose oral furosemide along with reduced dose of lisinopril. DC propranolol in favor of low-dose carvedilol. Check echocardiogram in the morning and arrange stress MPI. Consult with cardiology for follow-up. Qualifiers: Heart failure type: unspecified Heart failure chronicity: acute Qualified Code(s): I50.9 - Heart failure, unspecified (2) Graves disease: Status: Acute Assessment and plan: Continue her atenolol and her methimazole Although her methimazole dose may need to be adjusted. Despite her TSH being less than 0.01 her free T4 has now returned within normal limits at 1.14 from his previous value 2.71. We will send results of her thyroid studies to her tumblers supervisor at [facility]. (3) Hyperlipidemia: Status: Acute Assessment and plan: Continue her atorvastatin. Qualifiers: Hyperlipidemia type: pure hypercholesterolemia Qualified Code(s): E78.00 - Pure hypercholesterolemia, unspecified (4) Benign hypertension: Status: Chronic Subjective Subjective Interval history since last seen: Patient is feeling markedly better today. She denies any dyspnea or chest pain or pressure or palpitations. She has had some borderline low blood pressure readings with systolic pressures in the 90s but she has been asymptomatic. I had to hold her lisinopril and Lasix this morning however repeat manual blood pressure readings show systolic blood pressure above 100. I have reordered her furosemide at a reduced dose of 20 mg twice a day. Have also ordered a reduced dose of her lisinopril. Patient ambulated from her previous room in 215 where she was house while she was being ruled out for COVID-19 and she walked to her current room and room 229 without exertional dyspnea or dizziness or chest discomfort. I will resume low-dose furosemide and resume her lisinopril at a reduced dose of 10 mg daily. I will get an echocardiogram in the morning to get a formal reading on her LV and RV function. I will send her thyroid function test down to her tumblers supervisor at [facility] for him to review and get his feedback regarding adjustment of her methimazole dose. I will change her propranolol to carvedilol in light of her heart failure. Patient should have a stress MPI study to rule out ischemic heart disease. Exam Narrative Exam Narrative: Elderly female sitting up in bed in no discomfort. She is alert and oriented person place time circumstance. Lungs are clear to auscultation. Heart regular rate and rhythm without appreciable murmur rub or gallop. No thrill or heave. Abdomen soft nontender no distention. Extremities without peripheral edema Objective Objective Clinical Data: Abnormal lab results 11/06/19 Range/Units 06:44 BUN 22 H D (7-18) mg/dL Creatinine 1.16 H (0.55-1.02) mg/dL NT-Pro-B Natriuret Pep 41858 H (<300) pg/mL Vital Signs Temperature 36.1 C L 11/06/19 07:25 Temperature Source Temporal Artery Scan 11/06/19 07:25 Pulse 77 11/06/19 07:25 Pulse Rhythm Regular 11/06/19 07:33 Pulse 93 H 11/04/19 23:40 Respiratory Rate 18 11/06/19 07:25 Respiratory Effort Non-Labored 11/06/19 07:33 Respiratory Depth Normal 11/06/19 07:33 Respiratory Pattern Normal 11/06/19 07:33 Blood Pressure 104/67 11/06/19 07:25 Blood Pressure Mean 96 11/04/19 21:01 Blood Pressure Position Supine 11/04/19 18:17 Pulse Oximetry 94 L 11/06/19 07:25 Oxygen Delivery Method Room Air 11/06/19 07:25 Oxygen Flow Rate 0 11/06/19 07:25 Pain Level 0 11/06/19 07:33 Comment 11/06/19 07:33 Intake & Output 11/05/19 11/05/19 11/06/19 11:59 23:59 11:59 Intake Total 200 / 210 10 210 790 / 790 Output Total 1430 / 3930 2500 / 3930 625 / 625 Balance -1230 / -3720 -2490 / -3720 165 / 165 Weight 58.513 kg 56.2 kg Intake: IV Oral 200 / 200 790 / 790 Output: Urine 1430 / 3930 2500 / 3930 625 / 625 Other: Urine Color Yellow Pale Yellow Yellow Urine Appearance Clear Clear Clear Urine Odor None None Normal Comment voiding independently without diffiuctly Void x1 in the toilet. Stool Size Moderate Stool Characteristics Formed Brown Voiding Methods Toilet Toilet Toilet Laboratory Results WBC 9.42 10^3/uL (4.4-10.8) 11/04/19 18:40 RBC 4.11 10^6/uL (3.93-5.22) 11/04/19 18:40 Hgb 11.3 g/dL (11.2-15.7) 11/04/19 18:40 Hct 36.4 % (36.0-46.0) 11/04/19 18:40 MCV 88.6 fL (80-95) 11/04/19 18:40 MCH 27.5 pg (27.0-33.0) 11/04/19 18:40 MCHC 31.0 % (32.0-36.0) L 11/04/19 18:40 RDW 14.0 % (11.7-14.6) 11/04/19 18:40 Plt Count 258 10^3/uL (130-400) 11/04/19 18:40 MPV 9.7 fL (8.0-11.0) 11/04/19 18:40 Immature Gran % 0.2 11/04/19 18:40 Neutrophils % 50.4 11/04/19 18:40 Lymphocytes % 34.9 11/04/19 18:40 Monocytes % 9.1 11/04/19 18:40 Eosinophils % 4.8 11/04/19 18:40 Basophils % 0.6 11/04/19 18:40 Nucleated RBC % 0 % 11/04/19 18:40 Absolute Neutrophils 4.74 10^3/uL (1.2-6.7) 11/04/19 18:40 Absolute Lymphocytes 3.29 10^3/uL (1.2-3.4) 11/04/19 18:40 Absolute Monocytes 0.86 10^3/uL (0.1-0.8) H 11/04/19 18:40 Absolute Eosinophils 0.45 10^3/uL (0.0-0.7) 11/04/19 18:40 Absolute Basophils 0.06 10^3/uL (0.0-0.2) 11/04/19 18:40 PT 11.1 sec (9.3-11.0) H 11/04/19 18:40 INR 1.1 (0.9-1.1) 11/04/19 18:40 APTT 22.3 sec (21.0-31.4) 11/04/19 18:40 Sodium 136 mmol/L (136-145) 11/06/19 06:44 Potassium 3.5 mmol/L (3.5-5.1) 11/06/19 06:44 Chloride 102 mmol/L (98-107) 11/06/19 06:44 Carbon Dioxide 24.7 mmol/L (21.0-32.0) 11/06/19 06:44 Anion Gap 9.3 mmol/L (3-11) 11/06/19 06:44 BUN 22 mg/dL (7-18) H D 11/06/19 06:44 Creatinine 1.16 mg/dL (0.55-1.02) H 11/06/19 06:44 Estimated GFR/1.73 m2 45.18 (mL/min/1.73m2) 11/06/19 06:44 Glucose 91 mg/dL (74-106) 11/06/19 06:44 Calcium 8.6 mg/dL (8.5-10.1) 11/06/19 06:44 Magnesium 1.7 mg/dL (1.8-2.4) L 11/04/19 18:40 Total Bilirubin 0.4 mg/dL (0.2-1.0) 11/04/19 18:40 AST 16 U/L (15-37) 11/04/19 18:40 ALT 21 U/L (14-59) 11/04/19 18:40 Alkaline Phosphatase 125 U/L (46-116) H 11/04/19 18:40 Troponin I 0.05 ng/mL (<0.06) 11/05/19 06:50 NT-Pro-B Natriuret Pep 45931 pg/mL (<300) H 11/06/19 06:44 Total Protein 7.4 g/dL (6.4-8.2) 11/04/19 18:40 Albumin 3.4 g/dL (3.4-5.0) 11/04/19 18:40 TSH < 0.01 uIU/mL (0.36-3.74) L 11/04/19 18:40 Free T4 1.14 ng/dL (0.76-1.46) 11/04/19 18:40 COVID-19 PCR Negative (Negative) 11/04/19 20:46 Nasopharyn COVID-19 PCR Not Applicable 11/04/19 20:46 Ref Test Perform Site [facility] lab 11/04/19 20:46
[2019-11-06] MEDS: Furosemide 20 MG TAB PO ×2 (10:58→15:44)
--- NOTE | 2019-11-06 13:12 | PDOC.CMPRO ---
Care Management Progress Note S/O: Caitlin's covid test was negative. She remains at [facility], and transitioned to inpatient status today for further workup of her symptomology; anticipate ECHO and MPI stress test tomorrow. Caitlin was lying in bed, and was quite pleasant in interaction. She reported feeling human again and was looking forward to returning home, hopefully tomorrow. She reports drastic increased fatigue and reports having medical issues since she turned 79. She is independent at baseline and reports supportive family and friends. She lost her son two years ago at the age of 56 and wears a heart necklace with his ashes. She remains close with his two daughters and her great-grandchildren who reside in the [facility]. She reports her daughter, Lakesha is coming to visit this evening. She reports receiving the red binder on CHF and reading through it this morning, and shares her daughter will read through it as well. She found the information helpful to understanding her new diagnosis of CHF. CM continues to follow. A: 79 year old female admitted to [facility] 11/04/19 for New onset CHF believed to be r/t Graves disease P: Caitlin will continue to be closely monitored and treated for new onset CHF attributed currently to recent Graves disease diagnosis. Anticipate no additional services upon discharge. Caitlin will follow up with her PCP and outpatient providers. CM continues to follow.
[2019-11-06] MEDS: Enoxaparin 40 MG/0.4 ML SYR SC (21:54)
[2019-11-06] MEDS: FLUoxetine 20 MG CAP PO (21:54)
[2019-11-07 03:10] VITALS: BP 96/62; PULSE 82; RESP 17; TEMP 36.8; O2SAT 96
[2019-11-07 07:22] LABS: HCT 36.2 % (36.0-46.0); HGB 11.7 g/dL (11.2-15.7); MCH 27.8 pg (27.0-33.0); MCHC 32.3 % (32.0-36.0); MPV 9.5 fL (8.0-11.0); Platelet Count 252 10^3/uL (130-400); RBC 4.21 10^6/uL (3.93-5.22); RDW-SD 43.3 fL; WBC 6.74 10^3/uL (4.4-10.8)
[2019-11-07 07:42] LABS: Anion Gap 9.9 mmol/L (3-11); BUN 26 mg/dL (7-18); CO2 25.1 mmol/L (21.0-32.0); CREATININE 1.14 mg/dL (0.55-1.02); Calcium 8.6 mg/dL (8.5-10.1); Chloride 103 mmol/L (98-107); Glucose 98 mg/dL (74-106); NT-proBNP 7557 pg/mL (<300); Potassium 4.2 mmol/L (3.5-5.1); Sodium 138 mmol/L (136-145)
[2019-11-07 07:44] VITALS: BP 110/75; PULSE 81; RESP 16; TEMP 36.5; O2SAT 97
[2019-11-07] MEDS: methIMAzole 5 MG TAB 20 MG PO (07:55)
[2019-11-07] MEDS: Atorvastatin 20 MG TAB PO (07:56)
[2019-11-07] MEDS: Normal Saline Flush 10 ML SYR IVP (07:56)
[2019-11-07] MEDS: Carvedilol 3.125 MG TAB PO (07:56)
[2019-11-07] MEDS: Potassium Chloride 20 MEQ TABCR PO (07:56)
[2019-11-07] MEDS: Furosemide 20 MG TAB PO ×2 (07:56→17:10)
[2019-11-07] MEDS: Lisinopril 10 MG TAB PO (08:03)
[2019-11-07 11:15] VITALS: BP 100/60; PULSE 80; RESP 17; TEMP 36.6; O2SAT 92
--- NOTE | 2019-11-07 11:41 | PGE_ITS ---
Date of Service Date of service: 11/07/19 Time of Service: 11:41 Assessment and Plan Assessment and plan (1) CHF (congestive heart failure): Status: Chronic Assessment and plan: New onset CHF. Based on her CT scan looks like she has evidence of both right and left heart failure however the timing of her symptoms seems to coincide with the timing of her diagnosis of Graves' disease. Echocardiogram is needed to further clarify the etiology of her congestive heart failure. Differential diagnosis includes longstanding essential hypertension, valvular heart disease (note she has had a history of rheumatic fever), ischemic heart disease, high output heart failure secondary to Graves' disease. Continue low-dose diuretics. Lisinopril dose had to be reduced to accommodate her blood pressure. Atenolol has been replaced with low-dose carvedilol. Echocardiogram is pending at this time. Cardiology consult is pending at this time. Will obtain an outpatient stress MPI to rule out ischemic heart disease however patient's had no symptoms of exertional chest discomfort with ambulation around the hospital. Qualifiers: Heart failure type: unspecified Heart failure chronicity: acute Qualified Code(s): I50.9 - Heart failure, unspecified (2) Graves disease: Status: Acute Assessment and plan: Continue current dose of methimazole. I have asked the laboratory to send all of her thyroid studies to Dr. Roman Pizano at [facility]. Patient had a TSH and a free T4 on admission. Free T4 is normalized but her TSH remains suppressed at less than 0.01. I have asked the lab to run a total T3 which is the other lab that Dr. Pizano had requested. (3) Hyperlipidemia: Status: Acute Assessment and plan: Continue her atorvastatin. Qualifiers: Hyperlipidemia type: pure hypercholesterolemia Qualified Code(s): E78.00 - Pure hypercholesterolemia, unspecified (4) Benign hypertension: Status: Chronic Assessment and plan: Lisinopril dose been reduced to 10 mg daily. She remains on low-dose Lasix. Continue low-dose carvedilol.. Subjective Subjective Patient reports: no new complaints and feels better; denies shortness of breath Exam Narrative Exam Narrative: Elderly female sitting up in bed in no discomfort. She is alert and oriented person place time circumstance. Lungs are clear to auscultation. Heart regular rate and rhythm without appreciable murmur rub or gallop. No thrill or heave. Abdomen soft nontender no distention. Extremities without peripheral edema Objective Last Vital Signs Temp 36.6 C 11/07/19 11:15 Pulse 80 11/07/19 11:15 Resp 17 11/07/19 11:15 BP 100/60 11/07/19 11:15 Pulse Ox 92 11/07/19 11:15 Laboratory Results - last 24 hr 11/07/19 11/07/19 07:06 07:06 WBC 6.74 RBC 4.21 Hgb 11.7 Hct 36.2 MCV 86.0 MCH 27.8 MCHC 32.3 RDW 14.0 Plt Count 252 MPV 9.5 Sodium 138 Potassium 4.2 Chloride 103 Carbon Dioxide 25.1 Anion Gap 9.9 BUN 26 H Creatinine 1.14 H Estimated GFR/1.73 m2 46.10 Glucose 98 Calcium 8.6 NT-Pro-B Natriuret Pep 7557 H
--- NOTE | 2019-11-07 11:46 | PDOC.CMDIS ---
LACE Index Scoring Tool - Questions: Length of Stay (in days): 1 Acuity (Admit via E.D.?): Yes Comorbidities: Liver or Renal Disease E.D. Visits: 1 - Answers: Total Score: 10 Risk of Readmission: High Risk Care Management Discharge Reason for Hospitalization: New onset CHF Discharge Plan: Caitlin will return home when ready per MD. She will follow up with her PCP and outpatient providers post discharge. She will transport via private vehicle with family. Patient/Family Education Needs: Review discharge instructions, discuss Ask Me Three.
--- NOTE | 2019-11-07 11:55 | DI.US_ITS ---
APPROVED REPORT EXAM: Comprehensive 2D, Doppler, and color-flow Echocardiogram Patient Location: In-Patient Room/Bed: [address] Wirer Helper: Iesha Mcdonald RDCS (AE) Indications: CHF, Evaluate LV function Other Information Study Quality: Good Conclusion Left Ventricle : The left ventricle is normal size. Left ventricular systolic function is moderately decreased. There is normal left ventricular wall thickness. The left ventricular diastolic function i s abnormal. LVEF is 30% with global hypokinesis. Right Ventricle : The right ventricle is normal size. Right ventricle is mildly hypokinetic. The RVSP is 25.8 mmHg. Atria: both atria are normal in size Mitral Valve : Mild mitral annular calcification. No evidence of mitral valve stenosis. Mild to moder ate mitral regurgitation. Great Vessels : The aortic root is normal in size. IVC is normal in size and collapses >50% with insp iration. The ascending aorta is mildly dilated. Aortic arch is not well visualized. Please see remainder of study for further details. There is no prior study available for comparison. Wall motion Left Ventricle The left ventricle is normal size. Left ventricular systolic function is moderately decreased. There is normal left ventricular wall thickness. There is global hypokinesis with severe hypokinesis of the septum. The left ventricular diastolic function is abnormal. There is no ventricular septal defect v isualized. LVEF is 30%. Right Ventricle The right ventricle is normal size. Right ventricle is mildly hypokinetic. The RVSP is 25.8 mmHg. Atria The left atrium size is normal. The right atrium size is normal. The interatrial septum is intact wit h no evidence for an atrial septal defect. Aortic Valve The aortic valve is normal in structure. Aortic valve is trileaflet. There is no aortic valvular sten osis. Trace aortic regurgitation. Mitral Valve Mild mitral annular calcification. No evidence of mitral valve stenosis. Mild to moderate mitral regu rgitation. Tricuspid Valve The tricuspid valve is normal in structure. There is no tricuspid valve stenosis. Mild tricuspid regu rgitation. Pulmonic Valve The pulmonary valve is normal in structure. There is no pulmonic valvular stenosis. Mild pulmonic reg urgitation. Great Vessels The aortic root is normal in size. The ascending aorta is mildly dilated. Aortic arch is not well vis ualized. IVC is normal in size and collapses >50% with inspiration. Pericardium There is no pericardial effusion. 2D Dimensions IVSD d PLAX 0.90 cm F: 0.6-1.0 LV Vol A2C d MOD 117.2 mL LVPW d PLAX 0.94 cm F: 0.6 - 1.0 LV Vol A4C d MOD 103.5 mL LVID d PLAX 4.76 cm F: 3.8 - 5.2 LA vol/ BSA A2C s A-L 32.5 mL/m2 LVDs 4.00 cm F: 2.2 - 3.5 LA vol/ BSA A4C s A-L 36.3 mL/m2 Ao Root d 2.68 cm F: 2.7 - 3.3 LA Vol/ BSA Biplane s A-L 35.9 mL/m2 RA Area A4C 14.97 cm2 LA Area A4C s MOD 19.29 cm2 RA Vol/ BSA A4C s A-L 25.7 mL/m2 LA Area A2C s MOD 17.48 cm2 Ao Asc Diam d 3.38 cm F: 2.3 - 3.1 LV EF A4C MOD 29.3 % LV EF Teichholz 32.4 % LV EF A2C MOD 29.7 % LVEF (Orozco's) 28.19 % F: 54 - 74 LV EF Biplane MOD 28.2 % LV Volume 93.07 mL F: 46 - 106 SV 32.22 mL LV Volume Index 58.53 mL/m2 F: 29 - 61 SV Index 20.25 mL/m2 LV Vol Biplane MOD 114.3 mL FS 15.30 % M-Mode TAPSE 1.51 cm (M/F) >1.7 LV Diastology MV E' medial 0.037 (>0.07 m/s) E/A Ratio 0.8 LV E/e MED 28.05 (<14) MV E Vmax 1.04 (0.4-1.3 m/s) MV E' lateral 0.038 (>0.1 m/s) MV A Vmax 1.25 (0.4-1.3 m/s) LV E/e LAT 27.35 (<14) MV E/A Ratio 0.83 MV E/E' medial 28.07 MV E/E' lateral 27.35 Aortic Valve LVOT Area 3.03 cm2 AoV Area Vmax 2.34 cm2 LVOT Vmax 1.03 m/s AoV Area/ BSA (Vmax) 1.47 cm2/m2 LVOT Mean Anthony. 0.62 m/s JULITA Mean Anthony. 1.99 cm2 LVOT Peak Grad 4.3 mmHg JULITA Mean Anthony. Index 1.25 cm2/m2 LVOT Mean Grad 1.9 mmHg AR DT 3812 msec LVOT VTI 0.181 m AR PHT 1105 msec LVOT Diam s 1.95 cm AoV Vmax 1.34 m/s Velocity Ratio 0.76 AoV Mean Anthony. 0.95 m/s AoV Peak Grad 7.2 mmHg LVOT SV 54.87 mL AoV Mean Grad 3.9 mmHg AoV VTI 0.255 m AoV Area VTI 2.15 cm2 AoV Area/ BSA (VTI) 1.35 cm/m2 Mitral Valve MV DT 152 (160-240 msec) MR Vmax 4.40 m/s MV PHT 44 msec MR VTI 1.488 m MV Area PHT 4.99 cm2 MR Peak Grad 77.4 mmHg MV VTI 0.306 m MR Mean Grad 50.8 mmHg MV VTI Annulus 0.307 m MR PISA Radius 0.52 cm MV Area VTI 1.80 (4.0-6.0 cm2) MR EROA 0.14 cm2 MR Aliasing Velocity 0.35 m/s MR PISA 1.73 cm2 Pulmonary Valve PV Vmax 0.91 (0.5-1.5 m/s) RVOT Peak Gr. 2.61 mmHg PV Peak Grad 3.3 mmHg RVOT Mean Gr. 1.30 mmHg PV Mean Grad 1.9 mmHg RVOT VTI 0.154 m PV VTI 0.166 m RVOT Vmax 0.81 m/s Tricuspid Valve TR Peak Grad 22.7 mmHg TR Vmax 2.39 m/s RA Pressure 3.00 mmHg RVSP (TR) 25.8 mmHg
--- NOTE | 2019-11-07 15:43 | CHAPLAIN ---
Caitlin was hoping to be discharged this afternoon. She said she was admitted for CHF and has been given information to read about it and has found it interesting. She was also recently diagnosed with Graves disease, she said. Since turning 79, Caitlin said she's had health problems, and before that, hardly any.
[2019-11-07 16:20] VITALS: BP 121/78; PULSE 93; RESP 18; TEMP 37; O2SAT 98
--- NOTE | 2019-11-07 16:25 | DSE_ITS ---
Date of service: 11/07/19 Time of Service: 16:25 DS: Diagnosis Discharge Diagnosis (1) CHF (congestive heart failure): Status: Acute Asessment and Plan: See discharge summary for details. Patient presented with acute congestive heart failure with symptoms have been present over the past month. Patient was diuresed with IV Lasix and switch over to oral Lasix. Atenolol was changed to carvedilol at low-dose 3.125 mg twice a day. Lisinopril was reduced to 10 mg daily. Patient symptoms improved remarkably. Serial troponin levels were obtained and were negative for acute ischemic event. Echocardiogram was obtained and showed moderate LV dysfunction with global hypokinesis and an ejection fraction of 30% with diastolic dysfunction as well as mild to moderate mitral regurgitation. Outpatient stress MPI will be obtained in the next week to evaluate for ischemic heart disease. Patient will be referred to Dr. Agapito Lee for follow-up as an outpatient. (2) Graves disease: Status: Acute Asessment and Plan: Patient had a TSH and free T4 obtained during this admission. TSH remains suppressed at less than 0.01 and her free T4 is normal at 1.14. Total T3 is pending at this time. No changes were made to her methimazole dose. Patient is to follow-up with her personal lines account executive at [facility] (3) Hyperlipidemia: Status: Chronic Asessment and Plan: Patient is instructed to increase her atorvastatin to 40 mg nightly and to get a repeat lipid profile next week (4) Benign hypertension: Status: Chronic Asessment and Plan: Lisinopril dose was reduced to 10 mg daily and furosemide 20 mg twice daily was added along with potassium supplementation. Timolol was discontinued and patient was started on low-dose carvedilol 3.125 mg twice a day. Discharge Plan Disposition Patient Disposition: HOME Condition: Improving Discharge Details Reason For Visit: NEW ONSET CHF Admit Date/Time: 11/06/19 10:02 Admit Provider: Edward Costa Attending Provider: Edward Costa Primary Care Provider: Jinny Camacho Hospital Course Hospital Course: Patient is a 79-year-old female with a past medical history of essential hypertension, hyperlipidemia, recently diagnosed with Graves' disease about a month ago treated with methimazole who presented emergency department with progressive exertional dyspnea for the last month not associated with any chest pain or pedal edema or weight gain. Patient was diagnosed with acute congestive heart failure as evidenced on her CT of her chest that demonstrated moderate sized bilateral pleural effusions and moderate cardiomegaly with left ventricular enlargement and diffuse pulmonary interstitial changes. No PE was seen. She was also noted to have mild dilatation of her right and left pulmonary arteries suggestive of chronic pulmonary arterial hypertension. Her proBNP was elevated at 16,000 but after IV and oral diuretics came down to 7500. Serial troponin I levels were checked and were negative at less than 0.05. Clinically she improved after IV diuretics and then transition over to oral Lasix. Her lisinopril dose had to be reduced to 10 mg daily because of soft blood pressure readings. Her atenolol was transitioned over to carvedilol at a low dose of 3.125 mg twice a day. She was tolerating these medication changes and was able to ambulate around the hospital without exertional dyspnea. Her weight on admission was 58.5 kg she dropped down to 56.7 kg at the time of her discharge. Serial BMPs and BUN and creatinine were monitored because of the diuretic therapy. At the time of discharge her serum sodium was 138 and her creatinine was 1.14 over the BUN of 26 and her potassium was 4.2. Her proBNP was 7500 at discharge. On admission her TSH and free T4 were checked her TSH remained suppressed at less than 0.01 but her free T4 which had been elevated in September 24 0.71 was now down to 1.14. Total T3 was obtained but is pending at this time. Cardiology was consulted but did not see the patient. I did discuss her case with Dr. Lee who read her echocardiogram and she has moderately impaired left ventricular function with an ejection fraction of 30% with global hypokinesis. Her left ventricular diastolic function is also abnormal. Right ventricular size was normal but the right ventricular systolic function was mildly h ypokinetic. Her RVSP was normal at 25. Both atria were normal size. Mitral valve showed mild MAC with mild to moderate mitral regurgitation. A sending aorta was mildly dilated. Aortic root was normal in size. Patient is being set up for an outpatient Lexiscan stress MPI as an outpatient in the next week with follow-up with Dr. Agapito Lee, metal bumper as an outpatient within the next 2 to 4 weeks. Patient is advised to increase her atorvastatin from 20 mg to 40 mg nightly and to begin an aspirin 81 mg daily. Patient will likely need further adjustment of her OTTO inhibitor and beta-bl ocker as her blood pressure tolerates. Stress MPI scan will be done to rule out ischemic heart disease. Patient needs to follow-up with her personal lines account executive at [facility] regarding her Graves' disease. No adjustment was made to her methimazole dose. Home Meds and New Rx's Prescriptions: New carvedilol 3.125 mg Tablet 3.125 mg PO BID Qty: 60 RF: 1 potassium chloride [Klor-Con M20] 20 mEq Tablet,Er Particles/Crystals 20 meq PO DAILY Qty: 30 RF: 0 furosemide 20 mg Tablet 20 mg PO BID@0830,1600 Qty: 60 RF: 0 aspirin 81 mg tablet,delayed release (DR/EC) 81 mg PO DAILY Qty: 90 RF: 0 Continued methimazole 10 mg tablet 20 mg PO DAILY RF: 0 fluoxetine 20 mg capsule 20 mg PO HS Qty: 90 RF: 3 Changed atorvastatin 40 mg tablet 40 mg PO DAILY Qty: 45 RF: 3 lisinopril 20 mg tablet 10 mg PO DAILY Qty: 90 RF: 3 Discontinued atenolol 25 mg tablet 12.5 mg PO BID RF: 0 No Action flu vacc quad 2018-19(6mos up) 60 mcg (15 mcg x 4)/0.5 mL suspension 0.5 ml IM ONCE Qty: 0.5 RF: 0 acetaminophen [Acetaminophen Extra Strength] 500 MG tablet 500 mg PO Q4H PRN Qty: 2 RF: 0 Discharge Instructions Instructions: Heart Failure (DC) Stand Alone Forms: Nursing Discharge Form Referrals: STRESS TEST [Other] Agapito Lee MD [ CONSULTING PHYSICIAN] - (you will receive a call for follow up appointment w/ Dr. Lee after your stress test) Jinny Camacho NP [Primary Care Provider] - (PLEASE CALL 11/08/19 TO MAKE A FOLLOW UP IN 1-2 WEEKS) Activity:: Activity as Tolerated Equipment/Supplies:: No Equipment Needed Diet:: Low Sodium Discharge Orders Discharge Orders: Discharge Order (Routine); Ordered 11/07/19 Ordered By: Edward Costa Other Ambulatory Orders: Basic Metabolic Panel (Routine) Timeframe: 1 Week Facility: [facility] - Location: Laboratory Outpatient Ordered By: Edward Costa Lipid 2 (Routine) Timeframe: 1 Week Facility: [facility] - Location: Laboratory Outpatient Ordered By: Edward Costa NM MPI rest & stress grp (Routine) Timeframe: 1 Week Location: None Selected Ordered By: Edward Costa DS: Summary Status at Discharge Functional status at discharge: independent ambulation Overall status at discharge: patient is progressing back to baseline Mental Status: mental status grossly normal Speech and Movement: speech and movement normal Mood: congruent mood Affect: normal affect Time Spent with Patient providing and/or coordinating discharge services: Greater than 30 minutes Specific discharge activities: Discussion with cardiology, arrangement of outpatient follow-up testing Exam Narrative Exam Narrative: Elderly female sitting up in bed in no discomfort. She is alert and oriented person place time circumstance. Lungs are clear to auscultation. Heart regular rate and rhythm without appreciable murmur rub or gallop. No thrill or heave. Abdomen soft nontender no distention. Extremities without peripheral edema Psych Mental Status: mental status grossly normal Speech and Movement: speech and movement normal Mood: congruent mood Affect: normal affect DS: Data Vitals/I&O Vitals and I&O: Vital Signs Temperature 36.6 C 11/07/19 11:15 Temperature Source Tympanic 11/07/19 11:15 Pulse 80 11/07/19 11:15 Pulse Rhythm Regular 11/07/19 08:48 Pulse 93 H 11/04/19 23:40 Respiratory Rate 17 11/07/19 11:15 Respiratory Effort 11/07/19 08:48 Respiratory Depth Normal 11/07/19 08:48 Respiratory Pattern Normal 11/07/19 08:48 Blood Pressure 100/60 11/07/19 11:15 Blood Pressure Mean 96 11/04/19 21:01 Blood Pressure Position Supine 11/04/19 18:17 Pulse Oximetry 92 11/07/19 11:15 Oxygen Delivery Method Room Air 11/07/19 11:15 Oxygen Flow Rate 0 11/07/19 11:15 Pain Level 0 11/07/19 11:30 Comment 11/07/19 11:30 Intake & Output 11/06/19 11/07/19 11/07/19 23:59 11:59 23:59 Intake Total 480 / 1270 800 / 1040 240 / 1040 Output Total 300 / 925 750 / 1150 400 / 1150 Balance 180 / 345 50 / -110 -160 / -110 Weight 56.7 kg Intake: IV Oral 480 / 1270 790 / 1030 240 / 1030 Output: Urine 300 / 925 750 / 1150 400 / 1150 Other: Urine Color Yellow Yellow Yellow Urine Appearance Clear Clear Urine Odor Normal None Comment Void x1 in the toilet. Voiding Methods Toilet Toilet Data Completed and Pending Labs on day of discharge: Labs from last 24 hours 11/07/19 11/07/19 11/07/19 07:10 07:06 07:06 WBC 6.74 RBC 4.21 Hgb 11.7 Hct 36.2 MCV 86.0 MCH 27.8 MCHC 32.3 RDW 14.0 Plt Count 252 MPV 9.5 Sodium 138 Potassium 4.2 Chloride 103 Carbon Dioxide 25.1 Anion Gap 9.9 BUN 26 H Creatinine 1.14 H Estimated GFR/1.73 m2 46.10 Glucose 98 Calcium 8.6 NT-Pro-B Natriuret Pep 7557 H Total T3 Pending [facility] Medical History Anxiety Benign hypertension CKD (chronic kidney disease) Depression Depression (04/14/14) Elevated hemoglobin A1c Hyperlipidemia Hyperthyroidism IFG (impaired fasting glucose) OA (osteoarthritis) Surgical History Extraction of cataract B/L Replacement of total knee joint (10/04/07) LEFT Family History Mother , ??? at age 56. Neoplasm Abdominal Father , Heart issues at age 77. Heart disease Myocardial infarction Neoplasm Colon CA dx'ed ??? Son Diabetes Daughter No problems noted. Social History Smoking/Tobacco Use Status: Former Tobacco Use Alcohol Intake: current Alcohol Intake frequency: holidays/special occasions only Drug use: Never Substance use type: does not use Caregiver/Support person: No Housing: apartment Number of Children: 2 Communication Needs: None current occupation: Retired Current gender identity: female What type of physical activity do you participate in: walking Duration: 15-30 minutes/day Frequency: daily Seatbelt use: always Water heater temp set <120 deg: Yes Working smoke detector in home: Yes Fire extinguisher in home: Yes Carbon monox detector in home: Yes Do you feel safe at home: Yes
[2019-11-07 22:16] LABS: T3, Total 130 ng/dL (97-169)
== END 2019-11-07 18:02 | disposition home or self-care (01) | DRG 293 ==
LOC: ER 22:58 → MS 11-06 10:09
PROVIDERS: Admitting Provider Internal Medicine; Emergency Provider Physician Assistant; PCP Nurse Practitioner; Visit Provider Internal Medicine
DX: I13.0 Hypertensive heart and chronic kidney disease with heart failure and stage 1 through stage 4 chronic kidney disease, or unspecified chronic kidney disease (principal); I50.9 Heart failure, unspecified; E05.00 Thyrotoxicosis with diffuse goiter without thyrotoxic crisis or storm; F41.9 Anxiety disorder, unspecified; N18.9 Chronic kidney disease, unspecified; R73.01 Impaired fasting glucose; M19.90 Unspecified osteoarthritis, unspecified site; Z96.652 Presence of left artificial knee joint; I34.0 Nonrheumatic mitral (valve) insufficiency; I27.20 Pulmonary hypertension, unspecified; E78.00 Pure hypercholesterolemia, unspecified
CPT/HCPCS: 36415; 71275; 80048; 80053; 85027; 90686; 93005; 93306; 96374; 96375; 96376; 99220; 99232; 99239; 99285; J1650; U0003; 83735; 83880; 84439; 84443; 84480; 84484; 85025; 85610; 85730; 93010; G0378; J1940; J2405; J3490

== ENCOUNTER → 2019-11-07 07:47 | Outpatient (BNVA) | payer OTHER, SELFPAY | PROVIDERS: PCP Nurse Practitioner; Referring Provider Nurse Practitioner; Visit Provider Internal Medicine Cardiovascular Disease | DX: R69 Illness, unspecified (principal) ==

== ENCOUNTER 2019-11-21 03:03 | Outpatient (CLI) | payer OTHER, SELFPAY ==
[2019-11-21 12:51] LABS: Anion Gap 10.1 mmol/L (3-11); BUN 53 mg/dL (7-18); CO2 25.9 mmol/L (21.0-32.0); CREATININE 2.09 mg/dL (0.55-1.02); Calcium 9.1 mg/dL (8.5-10.1); Chloride 101 mmol/L (98-107); Glucose 120 mg/dL (74-106); NT-proBNP 3234 pg/mL (<300); Potassium 4.7 mmol/L (3.5-5.1); Sodium 137 mmol/L (136-145)
[2019-11-21 13:08] LABS: Calculated LDL 98 mg/dL (<100); Cholesterol 163 mg/dL (<200); HDL Cholesterol 42 mg/dL (40-60); Triglyceride 116 mg/dL (<150)
== END 2019-11-21 03:23 ==
PROVIDERS: Nurse Practitioner Adult Health; PCP Nurse Practitioner; Visit Provider Nurse Practitioner
DX: E78.5 Hyperlipidemia, unspecified (principal); I50.9 Heart failure, unspecified; Z51.81 Encounter for therapeutic drug level monitoring
CPT/HCPCS: 36415; 80048; 80061; 83880

== ENCOUNTER 2019-11-24 04:38 | Outpatient (CLI) | payer OTHER, SELFPAY ==
[2019-11-24 14:03] LABS: Anion Gap 7.3 mmol/L (3-11); BUN 35 mg/dL (7-18); CO2 27.7 mmol/L (21.0-32.0); CREATININE 1.44 mg/dL (0.55-1.02); Calcium 9.3 mg/dL (8.5-10.1); Chloride 102 mmol/L (98-107); Glucose 116 mg/dL (74-106); NT-proBNP 4368 pg/mL (<300); Potassium 4.4 mmol/L (3.5-5.1); Sodium 137 mmol/L (136-145)
== END 2019-11-24 04:58 ==
PROVIDERS: Nurse Practitioner Adult Health; PCP Nurse Practitioner; Visit Provider Nurse Practitioner
DX: I50.9 Heart failure, unspecified (principal); N18.30 Chronic kidney disease, stage 3 unspecified; N17.9 Acute kidney failure, unspecified; Z79.899 Other long term (current) drug therapy
CPT/HCPCS: 36415; 80048; 83880

== ENCOUNTER 2019-11-30 01:22 | Outpatient (CLI) | payer OTHER, SELFPAY ==
[2019-11-30 11:46] LABS: Anion Gap 10.6 mmol/L (3-11); BUN 23 mg/dL (7-18); CO2 26.4 mmol/L (21.0-32.0); CREATININE 1.32 mg/dL (0.55-1.02); Calcium 9.1 mg/dL (8.5-10.1); Chloride 102 mmol/L (98-107); Estimated GFR 38.92 (mL/min/1.73m2); Glucose 97 mg/dL (74-106); NT-proBNP 3138 pg/mL (<300); Sodium 139 mmol/L (136-145)
== END 2019-11-30 01:42 ==
PROVIDERS: PCP Nurse Practitioner; Visit Provider Nurse Practitioner Adult Health
DX: I50.9 Heart failure, unspecified (principal); N17.9 Acute kidney failure, unspecified
CPT/HCPCS: 36415; 80048; 83880

== ENCOUNTER 2019-12-07 10:29 | Outpatient (REF) | payer OTHER, SELFPAY ==
[2019-12-07 21:02] LABS: Anion Gap 8.5 mmol/L (3-11); BUN 25 mg/dL (7-18); CO2 26.5 mmol/L (21.0-32.0); CREATININE 1.28 mg/dL (0.55-1.02); Calcium 9.1 mg/dL (8.5-10.1); Chloride 102 mmol/L (98-107); Estimated GFR 40.33 (mL/min/1.73m2); Glucose 110 mg/dL (74-106); NT-proBNP 2558 pg/mL (<300); Potassium 4.2 mmol/L (3.5-5.1); Sodium 137 mmol/L (136-145)
== END 2019-12-07 10:49 ==
LOC: LBN 10:29
PROVIDERS: PCP Nurse Practitioner; Visit Provider Nurse Practitioner Adult Health
DX: I50.9 Heart failure, unspecified (principal); N17.9 Acute kidney failure, unspecified
CPT/HCPCS: 80048; 83880

== ENCOUNTER → 2019-12-19 12:32 | Outpatient (BNVA) | payer OTHER, SELFPAY | PROVIDERS: PCP Nurse Practitioner; Referring Provider Nurse Practitioner; Visit Provider Internal Medicine Cardiovascular Disease | DX: I50.9 Heart failure, unspecified (principal); I13.0 Hypertensive heart and chronic kidney disease with heart failure and stage 1 through stage 4 chronic kidney disease, or unspecified chronic kidney disease; N18.9 Chronic kidney disease, unspecified | CPT/HCPCS: 99203; 99214 ==

== ENCOUNTER → 2020-04-19 11:00 | Outpatient (BNVA) | payer OTHER, SELFPAY | PROVIDERS: PCP Nurse Practitioner; Referring Provider Nurse Practitioner; Visit Provider Internal Medicine Cardiovascular Disease | DX: I50.9 Heart failure, unspecified (principal) | CPT/HCPCS: 99212; 99442 ==

== ENCOUNTER 2020-06-06 03:15 | Outpatient (CLI) | payer OTHER, SELFPAY ==
[2020-06-06 11:32] LABS: FREE T4 0.65 ng/dL (0.76-1.46); TSH 17.47 uIU/mL (0.36-3.74)
[2020-06-06 17:14] LABS: T3, Total 131 ng/dL (97-169)
[2020-06-12 16:55] LABS: Thyroid Stimulating Immunoglob 1.1 TSI index (<=1.3)
== END 2020-06-06 03:16 | disposition home or self-care (01) ==
LOC: LBO 03:15
PROVIDERS: PCP Nurse Practitioner; Visit Provider Internal Medicine Endocrinology, Diabetes & Metabolism
DX: E05.90 Thyrotoxicosis, unspecified without thyrotoxic crisis or storm (principal)
CPT/HCPCS: 36415; 84439; 84443; 84445; 84480

== ENCOUNTER 2020-08-10 03:09 | Outpatient (CLI) | payer OTHER, SELFPAY ==
[2020-08-10 13:01] LABS: BUN 28 mg/dL (7-18); CREATININE 1.2 mg/dL (0.55-1.02); Calcium 8.8 mg/dL (8.5-10.1); Chloride 107 mmol/L (98-107); Estimated GFR 43.45 (mL/min/1.73m2); Glucose 110 mg/dL (74-106); Potassium 4.5 mmol/L (3.5-5.1); Sodium 143 mmol/L (136-145)
[2020-08-10 13:07] LABS: FREE T4 0.73 ng/dL (0.76-1.46); TSH 12.54 uIU/mL (0.36-3.74)
== END 2020-08-10 03:10 | disposition home or self-care (01) ==
LOC: LBO 03:09
PROVIDERS: Internal Medicine; PCP Nurse Practitioner; Visit Provider Internal Medicine Endocrinology, Diabetes & Metabolism
DX: E05.90 Thyrotoxicosis, unspecified without thyrotoxic crisis or storm (principal)
CPT/HCPCS: 36415; 80048; 84439; 84443; 84445

== ENCOUNTER → 2020-08-13 12:28 | Outpatient (BNVA) | payer OTHER, SELFPAY | PROVIDERS: PCP Nurse Practitioner; Referring Provider Nurse Practitioner; Visit Provider Internal Medicine Cardiovascular Disease | DX: I10 Essential (primary) hypertension (principal); I42.9 Cardiomyopathy, unspecified; Z87.891 Personal history of nicotine dependence | CPT/HCPCS: 99213 ==

== ENCOUNTER 2020-09-12 02:28 | Outpatient (CLI) | payer OTHER, SELFPAY ==
--- NOTE | 2020-09-12 07:36 | DI.US_ITS ---
APPROVED REPORT EXAM: Comprehensive 2D, Doppler, and color-flow Echocardiogram Patient Location: Out-Patient Microfilm Camera Operator: Iesha Mcdonald RDCS (AE) Indications: CHF Other Information Study Quality: Adequate Conclusion Left Ventricle : The left ventricle is normal size. Left ventricular systolic function is mildly decr eased. There is normal left ventricular wall thickness. There is global hypokinesis of the left ventr icle. The left ventricular diastolic function is abnormal. LVEF is 46%. Right Ventricle : The right ventricle is normal size. The right ventricular systolic function is norm al. The RVSP is 23.1mmHg. Atria : The left atrium size is normal. The right atrium size is normal. Mitral Valve : Mild mitral annular calcification. Mild mitral regurgitation. No evidence of mitral va lve stenosis. Great Vessels : The aortic root is normal in size. The ascending aorta is normal in size. Aortic arch is not well visualized. IVC is normal in size and collapses >50% with inspiration. Compared to study from 11/07/2019, the patient's ejection fraction has increased from 30% to 46%. Wall motion Left Ventricle The left ventricle is normal size. Left ventricular systolic function is mildly decreased. There is n ormal left ventricular wall thickness. There is global hypokinesis of the left ventricle. The left ve ntricular diastolic function is abnormal. There is no ventricular septal defect visualized. LVEF is 4 6%. Right Ventricle The right ventricle is normal size. The right ventricular systolic function is normal. The RVSP is 23 .1mmHg. Atria The left atrium size is normal. The right atrium size is normal. The interatrial septum is intact wit h no evidence for an atrial septal defect. Aortic Valve The aortic valve is normal in structure. Aortic valve is trileaflet. There is no aortic valvular sten osis. No aortic regurgitation is present. Mitral Valve Mild mitral annular calcification. No evidence of mitral valve stenosis. Mild mitral regurgitation. Tricuspid Valve The tricuspid valve is normal in structure. There is no tricuspid valve stenosis. Mild tricuspid regu rgitation. Pulmonic Valve Pulmonic valve is not well visualized. There is no pulmonic valvular stenosis. There is no pulmonic v alvular regurgitation. Great Vessels The aortic root is normal in size. The ascending aorta is normal in size. Aortic arch is not well vis ualized. IVC is normal in size and collapses >50% with inspiration. Pericardium There is no pericardial effusion. 2D Dimensions IVSD d PLAX 1.02 cm F: 0.6-1.0 LV Vol A2C d MOD 111.8 mL LVPW d PLAX 1.02 cm F: 0.6 - 1.0 LV Vol A4C d MOD 86.5 mL LVID d PLAX 4.84 cm F: 3.8 - 5.2 LA vol/ BSA A2C s A-L 26.3 mL/m2 LVDs 3.80 cm F: 2.2 - 3.5 LA vol/ BSA A4C s A-L 27.3 mL/m2 Ao Root d 2.69 cm F: 2.7 - 3.3 LA Vol/ BSA Biplane s A-L 27.0 mL/m2 RA Area A4C 11.06 cm2 LA Area A4C s MOD 16.22 cm2 RA Vol/ BSA A4C s A-L 15.1 mL/m2 LA Area A2C s MOD 15.82 cm2 Ao Asc Diam d 3.16 cm F: 2.3 - 3.1 LV EF A4C MOD 49.0 % LV EF Teichholz 43.0 % LV EF A2C MOD 46.7 % LVEF (Orozco's) 46.94 % F: 54 - 74 LV EF Biplane MOD 46.9 % LV Volume 79.69 mL F: 46 - 106 SV 46.64 mL LV Volume Index 48.29 mL/m2 F: 29 - 61 SV Index 28.18 mL/m2 LV Vol Biplane MOD 99.4 mL FS 21.20 % M-Mode TAPSE 1.52 cm (M/F) >1.7 LV Diastology MV E' medial 0.040 (>0.07 m/s) E/A Ratio 0.6 LV E/e MED 17.60 (<14) MV E Vmax 0.71 (0.4-1.3 m/s) MV E' lateral 0.044 (>0.1 m/s) MV A Vmax 1.20 (0.4-1.3 m/s) LV E/e LAT 16.10 (<14) MV E/A Ratio 0.57 MV E/E' medial 17.60 MV E/E' lateral 16.14 Aortic Valve LVOT Area 2.98 cm2 AoV Area Vmax 2.54 cm2 LVOT Vmax 1.11 m/s AoV Area/ BSA (Vmax) 1.53 cm2/m2 LVOT Mean Anthony. 0.66 m/s JULITA Mean Anthony. 2.11 cm2 LVOT Peak Grad 4.9 mmHg JULITA Mean Anthony. Index 1.28 cm2/m2 LVOT Mean Grad 2.2 mmHg LVOT VTI 0.221 m LVOT Diam s 1.90 cm AoV Vmax 1.30 m/s Velocity Ratio 0.85 AoV Mean Anthony. 0.94 m/s AoV Peak Grad 6.8 mmHg LVOT SV 65.79 mL AoV Mean Grad 3.9 mmHg AoV VTI 0.247 m AoV Area VTI 2.66 cm2 AoV Area/ BSA (VTI) 1.61 cm/m2 Mitral Valve MV DT 314 (160-240 msec) MR Vmax 4.82 m/s MV PHT 91 msec MR VTI 1.751 m MV Area PHT 2.42 cm2 MR Peak Grad 92.8 mmHg MV VTI 0.364 m MR Mean Grad 62.3 mmHg MV VTI Annulus 0.365 m MR PISA Radius 0.59 cm MV Area VTI 1.81 (4.0-6.0 cm2) MR EROA 0.16 cm2 MR Aliasing Velocity 0.35 m/s MR PISA 2.20 cm2 Pulmonary Valve PV Vmax 0.91 (0.5-1.5 m/s) RVOT Peak Gr. 1.28 mmHg PV Peak Grad 3.3 mmHg RVOT Mean Gr. 0.80 mmHg PV Mean Grad 2.1 mmHg RVOT VTI 0.122 m PV VTI 0.233 m RVOT Vmax 0.57 m/s Tricuspid Valve TR Peak Grad 20.0 mmHg TR Vmax 2.24 m/s RA Pressure 3.00 mmHg RVSP (TR) 23.1 mmHg
== END 2020-09-12 02:48 ==
PROVIDERS: PCP Nurse Practitioner; Visit Provider Internal Medicine Cardiovascular Disease
DX: I50.9 Heart failure, unspecified (principal); I34.0 Nonrheumatic mitral (valve) insufficiency
CPT/HCPCS: 93306

== ENCOUNTER → 2021-01-24 11:33 | Outpatient (BNVA) | payer OTHER, SELFPAY | PROVIDERS: PCP Nurse Practitioner; Visit Provider Internal Medicine Cardiovascular Disease | DX: I42.9 Cardiomyopathy, unspecified (principal); I10 Essential (primary) hypertension | CPT/HCPCS: 99212; 99213 ==

== ENCOUNTER 2021-02-08 03:22 | Outpatient (CLI) | payer MEDICARE, SELFPAY ==
[2021-02-08 09:48] LABS: Hemoglobin A1C 5.8 % (<5.7)
[2021-02-08 10:53] LABS: ALT 18 U/L (14-59); AST 12 U/L (15-37); Albumin 3.8 g/dL (3.4-5.0); Alkaline Phosphatase 147 U/L (46-116); Anion Gap 9.1 mmol/L (3-11); BUN 16 mg/dL (7-18); Bilirubin, Total 0.4 mg/dL (0.2-1.0); CO2 26.9 mmol/L (21.0-32.0); CREATININE 1.2 mg/dL (0.55-1.02); Calcium 8.7 mg/dL (8.5-10.1); Calculated LDL 118 mg/dL (<100); Chloride 103 mmol/L (98-107); Cholesterol 198 mg/dL (<200); Estimated GFR 43.34 (mL/min/1.73m2); Glucose 95 mg/dL (74-106); HDL Cholesterol 47 mg/dL (40-60); Potassium 4.2 mmol/L (3.5-5.1); Sodium 139 mmol/L (136-145); TSH (W/Ref FT4) 7.29 uIU/mL (0.36-3.74); Total Protein 7.2 g/dL (6.4-8.2); Triglyceride 169 mg/dL (<150)
[2021-02-08 11:10] LABS: FREE T4 0.79 ng/dL (0.76-1.46)
== END 2021-02-08 03:23 | disposition home or self-care (01) ==
LOC: LBO 03:22
PROVIDERS: PCP Nurse Practitioner; Visit Provider Nurse Practitioner
DX: E05.00 Thyrotoxicosis with diffuse goiter without thyrotoxic crisis or storm (principal); E11.9 Type 2 diabetes mellitus without complications; E78.00 Pure hypercholesterolemia, unspecified; I10 Essential (primary) hypertension
CPT/HCPCS: 36415; 80053; 80061; 83036; 84439; 84443

== ENCOUNTER 2021-06-17 04:45 | Outpatient (CLI) | payer MEDICARE, SELFPAY ==
[2021-06-17 13:14] LABS: FREE T4 0.75 ng/dL (0.76-1.46); TSH (W/Ref FT4) 6.44 uIU/mL (0.36-3.74)
== END 2021-06-17 04:46 | disposition home or self-care (01) ==
LOC: LBO 04:46
PROVIDERS: PCP Nurse Practitioner; Visit Provider Nurse Practitioner
DX: I10 Essential (primary) hypertension (principal)
CPT/HCPCS: 36415; 84439; 84443

== ENCOUNTER → 2021-07-26 11:20 | Outpatient (BNVA) | payer MEDICARE, SELFPAY | PROVIDERS: PCP Nurse Practitioner; Referring Provider Nurse Practitioner; Visit Provider Internal Medicine Cardiovascular Disease | DX: I42.9 Cardiomyopathy, unspecified (principal); I10 Essential (primary) hypertension | CPT/HCPCS: 99213 ==

== ENCOUNTER 2021-12-17 02:24 | Outpatient (CLI) | payer MEDICARE, SELFPAY ==
[2021-12-17 09:26] LABS: HCT 39.6 % (36.0-46.0); HGB 12.9 g/dL (11.2-15.7); MCH 29.9 pg (27.0-33.0); MCHC 32.6 % (32.0-36.0); MCV 92 fL (80-95); MPV 9.8 fL (8.0-11.0); Platelet Count 216 10^3/uL (130-400); RBC 4.32 10^6/uL (3.93-5.22); RDW 13.2 % (11.7-14.6); RDW-SD 44.6 fL; WBC 7.72 10^3/uL (4.4-10.8)
[2021-12-17 10:18] LABS: ALT 15 U/L (14-59); AST 14 U/L (15-37); Albumin 3.7 g/dL (3.4-5.0); Alkaline Phosphatase 138 U/L (46-116); Anion Gap 9.8 mmol/L (3-11); BUN 21 mg/dL (7-18); Bilirubin, Total 0.6 mg/dL (0.2-1.0); CO2 26.2 mmol/L (21.0-32.0); CREATININE 1.1 mg/dL (0.55-1.02); Calcium 9.2 mg/dL (8.5-10.1); Calculated LDL 117 mg/dL (<100); Chloride 102 mmol/L (98-107); Cholesterol 194 mg/dL (<200); Glucose 105 mg/dL (74-106); HDL Cholesterol 53 mg/dL (40-60); Potassium 4.4 mmol/L (3.5-5.1); Sodium 138 mmol/L (136-145); TSH (W/Ref FT4) 0.85 uIU/mL (0.36-3.74); Total Protein 7.4 g/dL (6.4-8.2); Triglyceride 120 mg/dL (<150)
== END 2021-12-17 02:25 | disposition home or self-care (01) ==
LOC: LBO 02:24
PROVIDERS: PCP Nurse Practitioner; Referring Provider Nurse Practitioner; Visit Provider Nurse Practitioner
DX: E05.00 Thyrotoxicosis with diffuse goiter without thyrotoxic crisis or storm (principal); E78.5 Hyperlipidemia, unspecified
CPT/HCPCS: 36415; 80053; 80061; 85027; 84443

== ENCOUNTER 2022-01-21 02:56 | Outpatient (CLI) | payer MEDICARE, SELFPAY ==
--- NOTE | 2022-01-21 07:30 | DI.US_ITS ---
Exam(s) US CAROTID EXAM: US CAROTID CLINICAL HISTORY: bilateral bruit,r09.89. TECHNIQUE: Ultrasound carotids performed using grayscale, color-flow, and spectral Doppler imaging. COMPARISON: US RENAL ULTRASOUND from 01/20/2011 FINDINGS: RIGHT CAROTID ARTERY: Plaque: Calcific plaque is seen in the carotid bulb, proximal ECA and the proximal and mid ICA. Velocity elevation: Yes. Please see below. LEFT CAROTID ARTERY: Plaque: Calcific plaque is seen in the carotid bulb, proximal ECA and both mid and proximal ICA. Velocity elevation: Yes. Please see below. VERTEBRAL ARTERIES: Bidirectional left vertebral artery flow is noted. Measurements: R Bulb: 82.5cm/s PS / 18.6cm/s ED R CCA: 85.4cm/s PS / 23.2cm/s ED R ECA: 120.8cm/s PS / 20.4cm/s ED R ICA Prox: 169.7cm/s PS / 25.9cm/s ED R ICA Mid: 129.5cm/s PS / 32.2cm/s ED R ICA Distal: 106.9cm/s PS /31.9cm/s ED R Vert: 73.5cm/s PS / 22.7cm/s ED R SVR: 2 R DVR: 1.1 L Bulb: 120cm/s PS / 17.8cm/s ED L CCA: PS / 33.4cm/s ED L ECA: 132.1cm/s PS / 21.8cm/s ED L ICA Prox: 248.8cm/s PS / 62.7cm/s ED L ICA Mid: 201.5cm/s PS / 75.4cm/s ED L ICA Distal: 169.9cm/s PS / 56.4cm/s ED L Vert: 23cm/s PS / 3.4cm/s ED L SVR: 3.2 L DVR: 1.9 Incidental note is made of a multinodular thyroid gland. There is a cystic 2.5 x 1.6 x 1.6 cm nodule in the right lobe. There is a solid 1.6 x 0.6 x 0.7 cm nodule in the left thyroid gland. Nonemerge nt thyroid ultrasound may be considered for further evaluation. IMPRESSION: 1. Findings of greater than 70 percent stenosis in the left internal carotid artery. 2. Findings of 50-69 percent stenosis in the right internal carotid artery. 3. Findings of bidirectional flow in the left vertebral artery. This can be seen in cases of early s ubclavian artery stenosis/occlusion. Criteria for Carotid Stenosis: Normal: ICA PSV <125 cm/s no plaque or intimal thickening is visible. <50% stenosis: ICA PSV <125 cm/s and plaque or intimal thickening is visible. 50-69% stenosis: ICA PSV is 125-250 cm/s and plaque is visible. >70% stenosis to near occlusion: ICA PSV >250 cm/s with visible plaque and luminal narrowing. DATA REPOSITORY:
== END 2022-01-21 03:16 ==
PROVIDERS: PCP Nurse Practitioner; Visit Provider Nurse Practitioner
DX: I65.23 Occlusion and stenosis of bilateral carotid arteries (principal); E04.2 Nontoxic multinodular goiter
CPT/HCPCS: 93880

== ENCOUNTER 2022-01-26 14:47 | Observation (INO) | payer MEDICARE, SELFPAY ==
[2022-01-26] VITALS (10 sets, daily range): BP systolic 104–146; BP diastolic 58–80; PULSE 98–107; RESP 16–26; TEMP 37.5–38.3; O2SAT 92–99
--- NOTE | 2022-01-26 15:15 | DI.RAD_ITS ---
Exam(s) XR FEMUR RT EXAM: XR FEMUR RT CLINICAL HISTORY: pain, fall. TECHNIQUE: 2D digital imaging was performed. AP and lateral views. COMPARISON: No exams were available for comparison FINDINGS: BONES: No acute fracture is present. No bony destructive lesion is seen. Visualized portion of knee a nd hip joints are unremarkable. SOFT TISSUE: Vascular calcifications. IMPRESSION: Unremarkable radiographs of the right femur. DATA REPOSITORY: RADIATION DOSE DELIVERED:
--- NOTE | 2022-01-26 15:15 | DI.RAD_ITS ---
Exam(s) XR PELVIS AP EXAM: XR PELVIS AP CLINICAL HISTORY: pain, fall. TECHNIQUE: 2D digital imaging was performed. COMPARISON: No exams were available for comparison FINDINGS: BONES: No acute fracture is present. No bony destructive lesion is seen. JOINTS: No dislocation present. No joint space narrowing is present. SOFT TISSUE: Vascular calcifications. IMPRESSION: Unremarkable radiographs of the pelvis. DATA REPOSITORY: RADIATION DOSE DELIVERED:
--- NOTE | 2022-01-26 15:15 | DI.RAD_ITS ---
Exam(s) XR FEMUR LT EXAM: XR FEMUR LT CLINICAL HISTORY: pain, fall. TECHNIQUE: 2D digital imaging was performed. Three views. COMPARISON: None. FINDINGS: BONES: No acute fracture is present. No bony destructive lesion is seen. JOINTS: No dislocation present. Revised knee prosthesis noted. SOFT TISSUE: Prominent vascular calcifications. IMPRESSION: No acute abnormality. DATA REPOSITORY: RADIATION DOSE DELIVERED:
--- NOTE | 2022-01-26 15:30 | RT.EKG_ITS ---
APPROVED REPORT Exam: Resting ECG Reason for Exam: vomiting Patient Location: E HR:102 bpm ECG Measurements Heart Rate 102 AXIS MI 168 P 46 QRSd 105 QRS 58 QT 407 T 58 QTc 529 Conclusion Sinus tachycardia...rate> 99 Nonspecific repol abnormality, diffuse leads...ST dep, T flat/neg, ant/lat/inf Prolonged QT interval...QTc >500mS
[2022-01-26 15:31] LABS: Abs Immature Grans 0.02 10^3/uL (0.0-0.06); Absolute Basophil Count 0.03 10^3/uL (0.0-0.2); Absolute Eosinophil Count 0.01 10^3/uL (0.0-0.7); Absolute Lymphocyte Count 0.54 10^3/uL (1.2-3.4); Absolute Monocyte Count 0.81 10^3/uL (0.1-0.8); Basophils % 0.3; Eosinophils % 0.1; HCT 37.8 % (36.0-46.0); HGB 12.1 g/dL (11.2-15.7); Immature Grans % 0.2; Lymphocytes % 6.3; MCH 28.9 pg (27.0-33.0); MCV 90 fL (80-95); MPV 9.7 fL (8.0-11.0); Monocytes % 9.4; Neutrophils % 83.7; Platelet Count 178 10^3/uL (130-400); RBC 4.19 10^6/uL (3.93-5.22); RDW 12.9 % (11.7-14.6); RDW-SD 42.6 fL; WBC 8.61 10^3/uL (4.4-10.8)
[2022-01-26 15:49] LABS: ALT 16 U/L (14-59); AST 14 U/L (15-37); Albumin 3.9 g/dL (3.4-5.0); Alkaline Phosphatase 141 U/L (46-116); Anion Gap 10.7 mmol/L (3-11); BUN 19 mg/dL (7-18); Bilirubin, Total 0.6 mg/dL (0.2-1.0); CO2 26.3 mmol/L (21.0-32.0); CREATININE 1.1 mg/dL (0.55-1.02); Calcium 9.1 mg/dL (8.5-10.1); Chloride 102 mmol/L (98-107); Glucose 124 mg/dL (74-106); Magnesium 1.8 mg/dL (1.8-2.4); Potassium 3.8 mmol/L (3.5-5.1); Sodium 139 mmol/L (136-145); Total Protein 7.9 g/dL (6.4-8.2)
[2022-01-26 15:50] LABS: COVID-19 PCR Negative (Negative); Influenza B PCR Negative (Negative); RSV PCR Negative (Negative)
[2022-01-26] MEDS: Ondansetron 4 MG/2 ML VIAL IVP (15:51)
[2022-01-26] MEDS: Normal Saline Flush 10 ML SYR IVP (15:51)
[2022-01-26 16:10] LABS: Source Nasopharynx
[2022-01-26 16:11] LABS: Influenza A PCR Positive (Negative)
[2022-01-26 16:25] LABS: Bilirubin Negative (Negative); Blood Trace-intact (Negative); Clarity Clear (Clear); Glucose Negative (Negative); Ketones Negative (Negative); Leukocyte Esterase Negative (Negative); Nitrite Negative (Negative); Specific Gravity 1.025 (1.005-1.025); Urobilinogen 0.2 EU/dL (Up TO 0.2)
[2022-01-26 16:47] LABS: Bacteria Few HPF (Negative); C & S Indicated? No; Crystals Negative HPF (Negative); Epithelial Cells Few HPF (Negative); Mucus Moderate (Negative); WBC 0-2 HPF (0-5)
--- NOTE | 2022-01-26 17:08 | W.ED.GENAD ---
Discharge Plan Disposition Patient Disposition: Admit to [facility] Condition: Serious Discharge Details Chief Complaint: Fall/Non TraumaCriteria Clinical Impression: Influenza A, Weakness Primary Care Provider: Jinny Camacho ED Provider: Jonel Joshua Home Meds and New Rx's Prescriptions: No Action atorvastatin 40 mg tablet 40 mg PO DAILY Qty: 90 3RF carvedilol 3.125 mg tablet 3.125 mg PO BID Qty: 180 3RF fluoxetine 20 mg capsule 20 mg PO HS Qty: 90 3RF furosemide 20 mg tablet 10 mg PO BID@0830,1600 Qty: 90 3RF lisinopril 5 mg tablet 2.5 mg PO DAILY Qty: 45 3RF Rx Instructions: Or as directed for CHF (stop all other doses of Lisinopril, 11/2019) methimazole 10 mg tablet See Rx Instructions .ROUTE .COMPLEX Qty: 90 3RF Dose Instruction: TAKE 1 TABLET BY MOUTH DAILY Rx Instructions: TAKE 1 TABLET BY MOUTH DAILY potassium chloride [Klor-Con M20] 20 mEq tablet,ER particles/crystals 20 meq PO DAILY Qty: 90 3RF flu vacc quad 2018-(6mos up) 60 mcg (15 mcg x 4)/0.5 mL suspension 0.5 ml IM ONCE Qty: 0.5 0RF acetaminophen [Acetaminophen Extra Strength] 500 MG tablet 500 mg PO Q4H PRN Qty: 2 Label Comments: Not taking at present. CG Medical Decision Making [age] ---year-old female here after collapse at home with pain in her hips bilaterally left greater than right. Patient has had cough and vomiting over the past day. Patient is saturating in the low to mid 90s, tachycardic. She did not take her medications including beta-george as prescribed today. Patient did have some nausea and vomiting here and was given Zofran. -- Considered arrhythmia. EKG was reviewed and interpreted by me: Please see report, sinus tachycardia 102 bpm, normal axis, prolonged QTC 529. -- Labs reviewed and influenza A positive. Will initiate treatment with Tamiflu 75 mg. -- Left and right hip and pelvis x-rays interpreted by radiology: Negative for fracture. -- Attempted to ambulate patient and she had significant weakness and was unable to ambulate safely. Patient does continue to have tachycardia -likely secondary to not having her carvedilol today.. Given generalized weakness, influenza and hypoxia, plan to admit. I spoke with Dr. Palomo, discussed ED presentation and course, he will admit the patient. Patient was given home dose of carvedilol. Chest x-ray was interpreted by radiology: Clear lungs and pleural space. No infiltrative disease. Degenerative skeletal changes. Sign Out No HPI General Mode of arrival: ambulatory. Date/Time Provider Initiated Documentation: 01/26/22 15:03. Limitations to Documentation: no limitations. Information obtained by: patient. HPI Narrative: 81-year-old female with multiple medical problems presents with chief complaint of pain in her hip. Patient notes she has had cough vomiting since yesterday. Today she went to stand up and fell to the ground. She does not believe she lost consciousness. She notes she laid on the ground for approximately 3 hours with inability to ambulate. She states she has pain in her hips bilaterally left greater than right. Patient denies associated head injury. Cough mild with no associated shortness of breath. Related Data Home Medications Medication Instructions Recorded Confirmed acetaminophen 500 mg tablet 500 mg PO Q4H PRN ##2 12/21/12 01/02/22 (Acetaminophen Extra Strength) atorvastatin 40 mg tablet 40 mg PO DAILY #90 tab-caps 01/02/22 01/26/22 carvedilol 3.125 mg tablet 3.125 mg PO BID #180 tabs 01/02/22 01/26/22 fluoxetine 20 mg capsule 20 mg PO HS #90 tabs 01/02/22 01/26/22 furosemide 20 mg tablet 10 mg PO BID@0830,1600 #90 tabs 01/02/22 01/26/22 lisinopril 5 mg tablet 2.5 mg PO DAILY #45 tabs 01/02/22 01/26/22 methimazole 10 mg tablet See Rx Instructions .Route 01/02/22 01/26/22 .COMPLEX #90 tabs potassium chloride 20 mEq 20 meq PO DAILY #90 tabs 01/02/22 01/26/22 tablet,extended release(part/cryst) (Klor-Con M) Previous Rx's Medication Instructions Recorded atorvastatin 40 mg tablet 40 mg PO DAILY #90 tab-caps 01/02/22 carvedilol 3.125 mg tablet 3.125 mg PO BID #180 tabs 01/02/22 fluoxetine 20 mg capsule 20 mg PO HS #90 tabs 01/02/22 furosemide 20 mg tablet 10 mg PO BID@0830,1600 #90 tabs 01/02/22 lisinopril 5 mg tablet 2.5 mg PO DAILY #45 tabs 01/02/22 methimazole 10 mg tablet See Rx Instructions .Route 01/02/22 .COMPLEX #90 tabs potassium chloride 20 mEq 20 meq PO DAILY #90 tabs 01/02/22 tablet,extended release(part/cryst) (Klor-Con M) Allergies Allergy/AdvReac Type Severity Reaction Status Date / Time Sulfa (Sulfonamide Allergy Unknown ? Verified 01/26/22 15:00 Antibiotics) Penicillins Allergy RASH Verified 01/26/22 15:00 acetaminophen AdvReac Intermediate N,V Verified 01/26/22 15:00 meperidine AdvReac Unknown VOMITING Verified 01/26/22 15:00 hydrocodone bitartrate AdvReac NAUSEA/VOMI Verified 01/26/22 15:00 [From Vicodin] TING propoxyphene napsylate AdvReac NAUSEA/VOMI Verified 01/26/22 15:00 [From Darvocet-N 100] TING General Stated Complaint: Fall/Non TraumaCriteria CHINTAN: 3 Review of Systems All systems reviewed & are unremarkable except as noted in HPI and below Constitutional Constitutional: Denies fever(s) Cardiovascular Cardiovascular: Denies chest pain Respiratory Respiratory: Reports as per HPI and Reports cough Gastrointestinal Gastrointestinal: Denies abdominal pain and Reports vomiting PFSH All Active Problems (Updated 01/26/22 @ 19:11 by Jonel Joshua MD) Influenza A (Acute) Weakness (Acute) Influenza (Acute) Eyelid lesion (Acute) Cardiomyopathy (Acute) Skin lesion of face (Acute) Acute kidney injury (Acute) CHF (congestive heart failure) (Acute) Graves disease (Acute 10/12/19) Roman Pizano MD [facility] [place] Fatigue (Acute) EKG abnormalities (Acute) Tachycardia (Acute) Hyperthyroidism (Chronic) Forgetfulness (Acute) Abnormal blood chemistry (Acute) Depression (Chronic 04/14/14) Elevated hemoglobin A1c (Chronic) History of anemia (Acute) Mumps (Acute 12/16/16) Rheumatic fever (Acute 12/16/16) Tobacco use disorder (Acute) Varicella (Acute 12/16/16) Status post total left knee replacement (Chronic) 2007 Internal derangement of right knee (Acute) Injection: 06/30/2018; 03/04/2018; 12/23/2017 Restless legs syndrome (Acute 06/25/12) Palpitations (Acute 12/16/16) Osteoarth NOS-l/leg (Acute 06/25/12) Loc osteoarth NOS-l/leg (Acute 06/25/12) Impaired fasting glucose (Acute 06/28/12) Hyperlipidemia (Chronic 04/24/11) PCEq 12.5%; LDL baseline 174 12/2016 labwork: 10-year ASCVD risk = ~23.2% --> switched from moderate to high intensity statin therapy Chronic kidney disease, stage III (moderate) (Acute 07/29/12) 12/2010 US WNL Anxiety (Chronic) Benign hypertension (Chronic) Gastroesophageal reflux disease (Chronic) Mechanical complication of internal orthopedic device (Acute 11/29/12) 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 Revision femoral component of left total knee replacement 11-29-12 by Cy Valdivia M.D. Medical History Anxiety BCC (basal cell carcinoma) (~11/2021) [facility] [place] CKD (chronic kidney disease) Depression Hyperlipidemia IFG (impaired fasting glucose) OA (osteoarthritis) Surgical History Extraction of cataract B/L Replacement of total knee joint (10/04/07) LEFT S/P Mohs surgery for basal cell carcinoma (~12/09/21) [facility] [place] Family History Mother , ??? at age 56. Neoplasm Abdominal Father , Heart issues at age 77. Heart disease Myocardial infarction Neoplasm Colon CA dx'ed ??? Son Diabetes Daughter No problems noted. 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 Current gender identity: female What type of physical activity do you participate in: walking Duration: 15-30 minutes/day Frequency: daily Seatbelt use: always Water heater temp set <120 deg: Yes Working smoke detector in home: Yes Fire extinguisher in home: Yes Carbon monox detector in home: Yes Do you feel safe at home: Yes Do you feel safe in your relationship?: Yes Exam Const General: cooperative and no acute distress HENMT Head: normocephalic and atraumatic Mouth: moist mucous membranes Eyes Conjunctivae: normal conjunctivae Sclera: normal sclerae Neck Neck: trachea midline and supple Resp Auscultation: no rales, rhonchi and no wheezes Cardio Rate: tachycardic Rhythm: regular rhythm GI Palpation: soft, not firm, no guarding, no masses, not rigid and nontender Back/Spine/Pelvis Pelvis: no pain with anterior-posterior compression and no pain with lateral compression Skin General skin exam: no rashes or lesions noted Neuro General: patient alert, patient awake and tone normal Extrem General: no edema Other: ttp bilateral proximal femurs, left > right, able to range hips Psych Appearance: grossly normal Mental Status: mental status grossly normal Speech and Movement: speech and movement normal Course Vital Signs Vital signs: Vital Signs Temperature 37.5 C 01/26/22 14:56 Pulse 103 H 01/26/22 14:56 Respiratory Rate 22 01/26/22 14:56 Blood Pressure 146/80 H 01/26/22 14:56 Pulse Oximetry 93 01/26/22 14:56 Temperature 37.5 C 01/26/22 14:56 Temperature Source Oral 01/26/22 14:56 Pulse 103 H 01/26/22 14:56 Respiratory Rate 22 01/26/22 14:56 Respiratory Effort Non-Labored 01/26/22 15:51 Blood Pressure 146/80 H 01/26/22 14:56 Blood Pressure Position Supine 01/26/22 14:56 Pulse Oximetry 93 01/26/22 14:56 Oxygen Delivery Method Room Air 01/26/22 14:56 Oxygen Flow Rate 0 01/26/22 14:56 Pain Level 4 01/26/22 14:56 Lab/Test Results Lab/Test Results: Laboratory Tests Range/Units 01/26/22 01/26/22 01/26/22 15:05 15:22 15:22 WBC (4.4-10.8) 10^3/uL 8.61 RBC (3.93-5.22) 10^6/uL 4.19 Hgb (11.2-15.7) g/dL 12.1 Hct (36.0-46.0) % 37.8 MCV (80-95) fL 90 MCH (27.0-33.0) pg 28.9 MCHC (32.0-36.0) % 32.0 RDW (11.7-14.6) % 12.9 Plt Count (130-400) 10^3/uL 178 MPV (8.0-11.0) fL 9.7 Immature Gran % 0.2 Neutrophils % 83.7 Lymphocytes % 6.3 Monocytes % 9.4 Eosinophils % 0.1 Basophils % 0.3 Nucleated RBC % (0.0-0.3) % 0.0 Absolute Neutrophils (1.2-6.7) 10^3/uL 7.20 H Absolute Lymphocytes (1.2-3.4) 10^3/uL 0.54 L Absolute Monocytes (0.1-0.8) 10^3/uL 0.81 H Absolute Eosinophils (0.0-0.7) 10^3/uL 0.01 Absolute Basophils (0.0-0.2) 10^3/uL 0.03 Sodium (136-145) mmol/L 139 Potassium (3.5-5.1) mmol/L 3.8 Chloride (98-107) mmol/L 102 Carbon Dioxide (21.0-32.0) mmol/L 26.3 Anion Gap (3-11) mmol/L 10.7 BUN (7-18) mg/dL 19 H Creatinine (0.55-1.02) mg/dL 1.1 H Est GFR (CKD-EPI 2020) (mL/min/1.73m2) 50.80 Glucose (74-106) mg/dL 124 H Calcium (8.5-10.1) mg/dL 9.1 Magnesium (1.8-2.4) mg/dL 1.8 Total Bilirubin (0.2-1.0) mg/dL 0.6 AST (15-37) U/L 14 L ALT (14-59) U/L 16 Alkaline Phosphatase (46-116) U/L 141 H Total Protein (6.4-8.2) g/dL 7.9 Albumin (3.4-5.0) g/dL 3.9 Urine Color (Yellow) Urine Clarity (Clear) Urine pH (5-8) Ur Specific [place] (1.005-1.025) Urine Protein (Negative) mg/dL Urine Ketones (Negative) mg/dL Urine Blood (Negative) Urine Nitrite (Negative) Urine Bilirubin (Negative) Urine Urobilinogen (Up TO 0.2) EU/dL Ur Leukocyte Esterase (Negative) Urine RBC (0-2) HPF Urine WBC (0-5) HPF Ur Epithelial Cells (Negative) HPF Urine Crystals (Negative) HPF Urine Bacteria (Negative) HPF Urine Mucus (Negative) Ur Culture Indicated? Urine Glucose (Negative) mg/dL COVID-19 Source Nasopharynx SARS-CoV-2 (PCR) (Negative) Negative Influenza Type A (PCR) (Negative) Positive A Influenza Type B (PCR) (Negative) Negative RSV (PCR) (Negative) Negative Range/Units 01/26/22 16:20 WBC (4.4-10.8) 10^3/uL RBC (3.93-5.22) 10^6/uL Hgb (11.2-15.7) g/dL Hct (36.0-46.0) % MCV (80-95) fL MCH (27.0-33.0) pg MCHC (32.0-36.0) % RDW (11.7-14.6) % Plt Count (130-400) 10^3/uL MPV (8.0-11.0) fL Immature Gran % Neutrophils % Lymphocytes % Monocytes % Eosinophils % Basophils % Nucleated RBC % (0.0-0.3) % Absolute Neutrophils (1.2-6.7) 10^3/uL Absolute Lymphocytes (1.2-3.4) 10^3/uL Absolute Monocytes (0.1-0.8) 10^3/uL Absolute Eosinophils (0.0-0.7) 10^3/uL Absolute Basophils (0.0-0.2) 10^3/uL Sodium (136-145) mmol/L Potassium (3.5-5.1) mmol/L Chloride (98-107) mmol/L Carbon Dioxide (21.0-32.0) mmol/L Anion Gap (3-11) mmol/L BUN (7-18) mg/dL Creatinine (0.55-1.02) mg/dL Est GFR (CKD-EPI 2020) (mL/min/1.73m2) Glucose (74-106) mg/dL Calcium (8.5-10.1) mg/dL Magnesium (1.8-2.4) mg/dL Total Bilirubin (0.2-1.0) mg/dL AST (15-37) U/L ALT (14-59) U/L Alkaline Phosphatase (46-116) U/L Total Protein (6.4-8.2) g/dL Albumin (3.4-5.0) g/dL Urine Color (Yellow) Yellow Urine Clarity (Clear) Clear Urine pH (5-8) 7.0 Ur Specific [place] (1.005-1.025) 1.025 Urine Protein (Negative) mg/dL Trace H Urine Ketones (Negative) mg/dL Negative Urine Blood (Negative) Trace-intact H Urine Nitrite (Negative) Negative Urine Bilirubin (Negative) Negative Urine Urobilinogen (Up TO 0.2) EU/dL 0.2 Ur Leukocyte Esterase (Negative) Negative Urine RBC (0-2) HPF 3-5 H Urine WBC (0-5) HPF 0-2 Ur Epithelial Cells (Negative) HPF Few Urine Crystals (Negative) HPF Negative Urine Bacteria (Negative) HPF Few Urine Mucus (Negative) Moderate Ur Culture Indicated? No Urine Glucose (Negative) mg/dL Negative COVID-19 Source SARS-CoV-2 (PCR) (Negative) Influenza Type A (PCR) (Negative) Influenza Type B (PCR) (Negative) RSV (PCR) (Negative)
--- NOTE | 2022-01-26 17:19 | DI.VRAD_ITS ---
PROCEDURE INFORMATION: Exam: XR Pelvis Exam date and time: 01/26/2022 4:49 PM Age: 81 years old Clinical indication: Pelvic pain; Patient HX: Pain, fall (yesterday per pt) TECHNIQUE: Imaging protocol: Radiologic exam of the pelvis. Views: 1 or 2 view. COMPARISON: No relevant prior studies available. FINDINGS: Bones/joints: Degenerative lumbosacral spine changes. Pelvic ring is intact. No fracture. No diastasis of sacroiliac joints or pubic symphysis. Proximal femurs and hips are unremarkable. Soft tissues: Soft tissues of the pelvic region are unremarkable in appearance. IMPRESSION: 1. Degenerative skeletal changes. 2. No acute fracture or pelvic diastasis. 3. Unremarkable soft tissues. Dictated and Authenticated by: Kiran Aguilar MD. Ordering:DUSTIN Remy MD
--- NOTE | 2022-01-26 17:20 | DI.VRAD_ITS ---
PROCEDURE INFORMATION: Exam: XR Right Femur Exam date and time: 01/26/2022 4:53 PM Age: 81 years old Clinical indication: Thigh; Right; Patient HX: Pain/fall (yesterday per pt) TECHNIQUE: Imaging protocol: Radiologic exam of the Right femur. Views: 2 views. COMPARISON: CR XR PELVIS AP 01/26/2022 4:49 PM FINDINGS: Bones/joints: No femur fracture. Hip joint is unremarkable. No acute features of the right knee. Extensive femoral and popliteal artery atherosclerotic calcium. Soft tissues: No soft tissue swelling or foreign body. IMPRESSION: 1. No evidence of fracture. No traumatic disruption of hip or knee. 2. Severe atherosclerotic calcification of the right femoral artery. Dictated and Authenticated by: Kiran Aguilar MD. Ordering:DUSTIN Remy MD
--- NOTE | 2022-01-26 17:21 | DI.VRAD_ITS ---
PROCEDURE INFORMATION: Exam: XR Left Femur Exam date and time: 01/26/2022 4:54 PM Age: 81 years old Clinical indication: Thigh; Left; Patient HX: Pain/fall (yesterday per pt) TECHNIQUE: Imaging protocol: Radiologic exam of the Left femur. Views: 2 views. COMPARISON: CR XR PELVIS AP 01/26/2022 4:49 PM FINDINGS: Bones/joints: No acute left femur changes. No fracture. There is a total left knee arthroplasty. Prosthetic components are unremarkable. Well-positioned. Soft tissues: No acute soft tissue changes. No foreign body. No soft tissue gas or hematoma. Vasculature: Extensive atherosclerotic calcification of the femoral artery. IMPRESSION: 1. No acute traumatic changes. 2. Left knee total arthroplasty is unremarkable in appearance. 3. Diffuse left femoral artery atherosclerotic calcium. Dictated and Authenticated by: Kiran Aguilar MD. Ordering:DUSTIN Remy MD
[2022-01-26] MEDS: Oseltamivir 75 MG CAP PO (17:27)
--- NOTE | 2022-01-26 18:15 | DI.RAD_ITS ---
Exam(s) XR PORTABLE CHEST AP EXAM: XR PORTABLE CHEST AP CLINICAL HISTORY: cough TECHNIQUE: 2D digital imaging was performed. COMPARISON: No exams were available for comparison FINDINGS: LUNGS: Clear. No pleural abnormality seen. HEART: Normal size. AORTA: Normal diameter. Mildly tortuous. BONES: Unremarkable for age. Prominent costal cartilage calcification. Soft tissues: Unremarkable. IMPRESSION: No acute findings. DATA REPOSITORY: RADIATION DOSE DELIVERED:
[2022-01-26] MEDS: Acetaminophen 325 MG TAB (18:33)
--- NOTE | 2022-01-26 18:48 | HPE_ITS ---
Date of service: 01/26/22 Time of Service: 18:48 Assessment and Plan Assessment and plan (1) Influenza: Status: Acute Assessment and plan: Influenza. Will continue Tamiflu along with general supportive measures, including gentle hydration and prn Zofran. Will continue usual meds save lasix. Reviewed ADs in detail and requests DNR status. History of Present Illness History of Present Illness Chief Complaint: cough, weakness Narrative: 81 female, has had Flu shot -- here with two days of dry cough and post-tussive vomiting. No CP, SOB, fever or chills. Generalized weakness, and today at one point sort o slumped to the floor. Stats she did not fall and there was no LOC. felt weak andf could not get back up, eventually transferred to ER. In ER hip films negative. Flu positive. COVID and RSV negative. CXR is pending. patient given Zofran x one, NS 500 cc and dose of Tamiflu. I was asked to evaluate for admission. At present time patient states she continues to feel weak. Denies nausea (again, states only post-tussive) and in fact is asking about eating. Review of Systems Narrative: per HPI PFSH All Active Problems (Updated 01/26/22 @ 18:54 by Agapito Palomo MD) Influenza (Acute) Eyelid lesion (Acute) Cardiomyopathy (Acute) Skin lesion of face (Acute) Acute kidney injury (Acute) CHF (congestive heart failure) (Acute) Graves disease (Acute 10/12/19) Roman Pizano MD [facility] [place] Fatigue (Acute) EKG abnormalities (Acute) Tachycardia (Acute) Hyperthyroidism (Chronic) Forgetfulness (Acute) Abnormal blood chemistry (Acute) Depression (Chronic 04/14/14) Elevated hemoglobin A1c (Chronic) History of anemia (Acute) Mumps (Acute 12/16/16) Rheumatic fever (Acute 12/16/16) Tobacco use disorder (Acute) Varicella (Acute 12/16/16) Status post total left knee replacement (Chronic) 2007 Internal derangement of right knee (Acute) Injection: 06/30/2018; 03/04/2018; 12/23/2017 Restless legs syndrome (Acute 06/25/12) Palpitations (Acute 12/16/16) Osteoarth NOS-l/leg (Acute 06/25/12) Loc osteoarth NOS-l/leg (Acute 06/25/12) Impaired fasting glucose (Acute 06/28/12) Hyperlipidemia (Chronic 04/24/11) PCEq 12.5%; LDL baseline 174 12/2016 labwork: 10-year ASCVD risk = ~23.2% --> switched from moderate to high intensity statin therapy Chronic kidney disease, stage III (moderate) (Acute 07/29/12) 12/2010 US WNL Anxiety (Chronic) Benign hypertension (Chronic) Gastroesophageal reflux disease (Chronic) Mechanical complication of internal orthopedic device (Acute 11/29/12) 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 Revision femoral component of left total knee replacement 11-29-12 by Cy Valdivia M.D. Medical History Anxiety BCC (basal cell carcinoma) (~11/2021) R Medial [place] CKD (chronic kidney disease) Depression Hyperlipidemia IFG (impaired fasting glucose) OA (osteoarthritis) Surgical History Extraction of cataract B/L Replacement of total knee joint (10/04/07) LEFT S/P Mohs surgery for basal cell carcinoma (~12/09/21) R Medial [place] Family History Mother , ??? at age 56. Neoplasm Abdominal Father , Heart issues at age 77. Heart disease Myocardial infarction Neoplasm Colon CA dx'ed ??? Son Diabetes Daughter No problems noted. 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 Verified 01/26/22 15:00 Antibiotics) Penicillins Allergy RASH Verified 01/26/22 15:00 acetaminophen AdvReac Intermediate N,V Verified 01/26/22 15:00 meperidine AdvReac Unknown VOMITING Verified 01/26/22 15:00 hydrocodone bitartrate AdvReac NAUSEA/VOMI Verified 01/26/22 15:00 [From Vicodin] TING propoxyphene napsylate AdvReac NAUSEA/VOMI Verified 01/26/22 15:00 [From Darvocet-N 100] TING Home Medications Medication Instructions Recorded Confirmed Type acetaminophen 500 mg tablet 500 mg PO Q4H PRN ##2 12/21/12 01/02/22 History (Acetaminophen Extra Strength) flu vacc quad 2017-(6mos up) 60 0.5 ml IM ONCE #0.5 mL 01/28/18 07/29/18 Clinic mcg (15 mcg x 4)/0.5 mL IM susp atorvastatin 40 mg tablet 40 mg PO DAILY #90 tab-caps 01/02/22 01/26/22 Rx carvedilol 3.125 mg tablet 3.125 mg PO BID #180 tabs 01/02/22 01/26/22 Rx fluoxetine 20 mg capsule 20 mg PO HS #90 tabs 01/02/22 01/26/22 Rx furosemide 20 mg tablet 10 mg PO BID@0830,1600 #90 tabs 01/02/22 01/26/22 Rx lisinopril 5 mg tablet 2.5 mg PO DAILY #45 tabs 01/02/22 01/26/22 Rx methimazole 10 mg tablet See Rx Instructions .Route 01/02/22 01/26/22 Rx .COMPLEX #90 tabs potassium chloride 20 mEq 20 meq PO DAILY #90 tabs 01/02/22 01/26/22 Rx tablet,extended release(part/cryst) (Klor-Con M) Exam Narrative Exam Narrative: 138/78, 100, 37.5, 18, 95% RA. HEENT atraumatic; neck supple; lungs clear, heart RRRF; abdome sift and NT; extremities w/o edema; neuro Ox, lucid, moves all 4s Results Labs Result diagrams: 01/26/22 15:22 01/26/22 15:22 Labs: Laboratory Results - last 24 hr 01/26/22 01/26/22 01/26/22 15:05 15:22 15:22 WBC 8.61 RBC 4.19 Hgb 12.1 Hct 37.8 MCV 90 MCH 28.9 MCHC 32.0 RDW 12.9 Plt Count 178 MPV 9.7 Immature Gran % 0.2 Neutrophils % 83.7 Lymphocytes % 6.3 Monocytes % 9.4 Eosinophils % 0.1 Basophils % 0.3 Nucleated RBC % 0.0 Absolute Neutrophils 7.20 H Absolute Lymphocytes 0.54 L Absolute Monocytes 0.81 H Absolute Eosinophils 0.01 Absolute Basophils 0.03 Sodium 139 Potassium 3.8 Chloride 102 Carbon Dioxide 26.3 Anion Gap 10.7 BUN 19 H Creatinine 1.1 H Est GFR (CKD-EPI 2020) 50.80 Glucose 124 H Calcium 9.1 Magnesium 1.8 Total Bilirubin 0.6 AST 14 L ALT 16 Alkaline Phosphatase 141 H Total Protein 7.9 Albumin 3.9 Urine Color Urine Clarity Urine pH Ur Specific [place] Urine Protein Urine Ketones Urine Blood Urine Nitrite Urine Bilirubin Urine Urobilinogen Ur Leukocyte Esterase Urine RBC Urine WBC Ur Epithelial Cells Urine Crystals Urine Bacteria Urine Mucus Ur Culture Indicated? Urine Glucose COVID-19 Source Nasopharynx SARS-CoV-2 (PCR) Negative Influenza Type A (PCR) Positive A Influenza Type B (PCR) Negative RSV (PCR) Negative 01/26/22 16:20 WBC RBC Hgb Hct MCV MCH MCHC RDW Plt Count MPV Immature Gran % Neutrophils % Lymphocytes % Monocytes % Eosinophils % Basophils % Nucleated RBC % Absolute Neutrophils Absolute Lymphocytes Absolute Monocytes Absolute Eosinophils Absolute Basophils Sodium Potassium Chloride Carbon Dioxide Anion Gap BUN Creatinine Est GFR (CKD-EPI 2020) Glucose Calcium Magnesium Total Bilirubin AST ALT Alkaline Phosphatase Total Protein Albumin Urine Color Yellow Urine Clarity Clear Urine pH 7.0 Ur Specific [place] 1.025 Urine Protein Trace H Urine Ketones Negative Urine Blood Trace-intact H Urine Nitrite Negative Urine Bilirubin Negative Urine Urobilinogen 0.2 Ur Leukocyte Esterase Negative Urine RBC 3-5 H Urine WBC 0-2 Ur Epithelial Cells Few Urine Crystals Negative Urine Bacteria Few Urine Mucus Moderate Ur Culture Indicated? No Urine Glucose Negative COVID-19 Source SARS-CoV-2 (PCR) Influenza Type A (PCR) Influenza Type B (PCR) RSV (PCR) Last Vital Signs Temp 37.5 C 01/26/22 14:56 Pulse 100 H 01/26/22 18:25 Resp 18 01/26/22 18:25 BP 138/78 01/26/22 18:25 Pulse Ox 95 01/26/22 18:25
--- NOTE | 2022-01-26 19:01 | DI.VRAD_ITS ---
PROCEDURE INFORMATION: Exam: XR Chest Exam date and time: 01/26/2022 6:30 PM Age: 81 years old Clinical indication: Cough TECHNIQUE: Imaging protocol: Radiologic exam of the chest. Views: 1 view. COMPARISON: CT CHEST PE CTA 11/04/2019 8:15 PM FINDINGS: Lungs: Clear lungs bilaterally. No infiltrates or edema. Pleural spaces: No pleural effusion. No pneumothorax. Heart/Mediastinum: Normal heart size. Bones/joints: Degenerative changes of the thoracic spine and AC joints. No acute skeletal disruption. IMPRESSION: 1. Clear lungs and pleural space. No infiltrative disease. 2. Degenerative skeletal changes. Dictated and Authenticated by: Kiran Aguilar MD. Ordering:DUSTIN Remy MD
[2022-01-26] MEDS: Carvedilol 3.125 MG TAB PO (19:53)
[2022-01-26] MEDS: Lactated Ringers 1,000 ML 75 ML IV (20:30)
[2022-01-26] MEDS: FLUoxetine 20 MG CAP PO (22:07)
[2022-01-27] VITALS (7 sets, daily range): BP systolic 97–118; BP diastolic 60–73; PULSE 60–94; RESP 14–18; TEMP 36.7–38.1; O2SAT 94–96
[2022-01-27] MEDS: Atorvastatin 40 MG TAB PO (08:21)
[2022-01-27] MEDS: Carvedilol 3.125 MG TAB PO ×2 (08:21→20:11)
[2022-01-27] MEDS: Lisinopril 5 MG TAB 2.5 MG PO (08:22)
[2022-01-27] MEDS: Lactated Ringers 1,000 ML 75 ML IV ×2 (09:42→22:48)
--- NOTE | 2022-01-27 09:52 | INITIAL_ITS ---
- If Service Date Differs Date of service: 01/27/22 Time of Service: 09:52 Care Management Initial Assess REASON FOR HOSPITALIZATION:: Influenza, Weakness PAST MEDICAL HISTORY/PAST SURGICAL HISTORY:: All Active Problems (Updated 01/26/22 @ 18:54 by Agapito Palomo MD). Influenza (Acute). Eyelid lesion (Acute). Cardiomyopathy (Acute). Skin lesion of face (Acute). Acute kidney injury (Acute). CHF (congestive heart failure) (Acute). Graves disease (Acute 10/12/19). Roman Pizano [place] [facility] [place] Fatigue (Acute). EKG abnormalities (Acute). Tachycardia (Acute). Hyperthyroidism (Chronic). Forgetfulness (Acute). Abnormal blood chemistry (Acute). Depression (Chronic 04/14/14). Elevated hemoglobin A1c (Chronic). History of anemia (Acute). Mumps (Acute 12/16/16). Rheumatic fever (Acute 12/16/16). Tobacco use disorder (Acute). Varicella (Acute 12/16/16). Status post total left knee replacement (Chronic). 2007. Internal derangement of right knee (Acute). Injection: 06/30/2018; 03/04/2018; 12/23/2017. Restless legs syndrome (Acute 06/25/12). Palpitations (Acute 12/16/16). Osteoarth NOS-l/leg (Acute 06/25/12). Loc osteoarth NOS-l/leg (Acute 06/25/12). Impaired fasting glucose (Acute 06/28/12). Hyperlipidemia (Chronic 04/24/11). PCEq 12.5%; LDL baseline 174. 12/2016 labwork: 10-year ASCVD risk = ~23.2% --> switched from moderate to high intensity statin therapy. Chronic kidney disease, stage III (moderate) (Acute 07/29/12). 12/2010 US WNL. Anxiety (Chronic). Benign hypertension (Chronic). Gastroesophageal reflux disease (Chronic). Mechanical complication of internal orthopedic device (Acute 11/29/12). 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 Revision femoral component of left total knee replacement 11-29-12 by Cy Valdivia M.D. Medical History . Anxiety. BCC (basal cell carcinoma) (~11/2021). R Medial [place]. CKD (chronic kidney disease). Depression. Hyperlipidemia. IFG (impaired fasting glucose). OA (osteoarthritis). Surgical History . Extraction of cataract. B/L. Replacement of total knee joint (10/04/07). LEFT. S/P Mohs surgery for basal cell carcinoma (~12/09/21). R Medial [place] PREVIOUS FUNCTIONAL STATUS/SOCIAL/FAMILY SUPPORTS:: Caitlin is retired and lives in [facility] with her Daughter. 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 Caitlin remains independent at baseline, drives and is fully independent with her ADLs. CURRENT FUNCTIONAL STATUS:: Caitlin is lying on bed when CM met with her. She is awake, alert and easy to engage in conversation. Caitlin shares that she does quite well for being 81 years old. She does not identify any social or community needs. Although she is interested in ordering a [employer]. CM provided pt with info. Caitlin defers a COA referral at this time, nor is she interested in MOW. ADVANCE DIRECTIVES:: On file, HCA is Fabian Marte. Alt. is Lakesha Delgado. Has patient been provided with info about the portal/API?: Yes Did the patient sign up for the portal?: No CODE STATUS:: DNR/DNI (Per Provider documentation on 01/26/22: Reviewed ADs in detail and requests DNR status.) INSURANCE COVERAGE / FINANCIAL ISSUES:: AARP/[employer] HL[employer]. [facility] CURRENT HOME/COMMUNITY SERVICES/EQUIPMENT:: No current services. PRIMARY CARE PHYSICIAN:: Jinny Camacho POTENTIAL DISCHARGE NEEDS:: Evaluation for further needs, follow up appointments. PATIENT/FAMILY EDUCATION NEEDS:: Review discharge instructions, discuss Ask Me Three. TRANSPORTATION:: Via private vehicle with her daughter. PLAN:: Caitlin is being closely monitored and treated for Influenza A. She is receiving Tamiflu, IV hydration and Zofran PRN. Caitlin will be evaluated for further needs prior to discharge; CM continues to follow.
[2022-01-27] MEDS: Oseltamivir 30 MG CAP PO ×2 (11:21→20:11)
[2022-01-27] MEDS: methIMAzole 5 MG TAB 10 MG PO (11:21)
[2022-01-27] MEDS: ACETAMINOPHEN 1,000 MG/100 ML BTL 400 MG IVPB (15:12)
--- NOTE | 2022-01-27 17:45 | W.PM.PROGNOT ---
Date of Service Date of service: 01/27/22 Time of Service: 17:45 Assessment and Plan Assessment and plan (1) Influenza: Status: Resolved Assessment and plan: Influenza. Will continue Tamiflu along with general supportive measures, including gentle hydration and prn Zofran. Will continue usual meds save lasix. Reviewed ADs in detail and requests DNR status. Subjective Subjective Patient reports: no new complaints, tolerating a regular diet, voiding w/o difficulty and afebrile; denies diarrhea or vomiting Exam Const General: cooperative and no acute distress Orientation: alert and awake [facility] Head: normocephalic and atraumatic Face and sinus: normal facial exam Mouth: moist mucous membranes Eyes Conjunctivae: normal conjunctivae Sclera: normal sclerae Neck Neck: trachea midline and supple Resp Effort & Inspection: normal respiratory effort and able to speak in complete sentences Auscultation: no rales, rhonchi and no wheezes Cardio Rate: tachycardic Rhythm: regular rhythm GI Palpation: soft, not firm, no guarding, no masses, not rigid and nontender Back/Spine/Pelvis Back: No back tenderness Skin General skin exam: no rashes or lesions noted Neuro General: patient alert, patient awake and tone normal Speech: speech normal Motor: muscle tone normal throughout and strength 5/5 throughout Sensory Exam: no sensory deficits noted Extrem General: no edema Psych Appearance: grossly normal Mental Status: mental status grossly normal Speech and Movement: speech and movement normal Objective Last Vital Signs Temp 37 C 01/27/22 16:58 Pulse 81 01/27/22 14:42 Resp 18 01/27/22 14:42 BP 118/73 01/27/22 14:42 Pulse Ox 95 01/27/22 14:42
--- NOTE | 2022-01-27 21:50 | NUR.NOTE ---
Nursing Note: daughter called for update [phone] Lore asks CM to call her cell number to help her get a lifeline for pt. Call at anytime for DC planning. states her stepson PJ will pick pt up. Lore will return home on
[2022-01-27] MEDS: FLUoxetine 20 MG CAP PO (22:40)
[2022-01-28 03:01] VITALS: BP 110/72; PULSE 82; RESP 15; TEMP 36.8; O2SAT 92
[2022-01-28 06:46] LABS: Abs Immature Grans 0.01 10^3/uL (0.0-0.06); Absolute Basophil Count 0.03 10^3/uL (0.0-0.2); Absolute Lymphocyte Count 1.98 10^3/uL (1.2-3.4); Absolute Monocyte Count 0.76 10^3/uL (0.1-0.8); Absolute Neutrophil Count 1.31 10^3/uL (1.2-6.7); Basophils % 0.7; Eosinophils % 2.4; HCT 34.5 % (36.0-46.0); HGB 11.2 g/dL (11.2-15.7); Immature Grans % 0.2; Lymphocytes % 47.3; MCH 29.7 pg (27.0-33.0); MCHC 32.5 % (32.0-36.0); MCV 92 fL (80-95); MPV 9.9 fL (8.0-11.0); Monocytes % 18.1; Neutrophils % 31.3; Platelet Count 145 10^3/uL (130-400); RBC 3.77 10^6/uL (3.93-5.22); RDW 13.3 % (11.7-14.6); RDW-SD 45.1 fL; WBC 4.19 10^3/uL (4.4-10.8)
[2022-01-28 07:02] LABS: Anion Gap 8.1 mmol/L (3-11); BUN 20 mg/dL (7-18); CO2 25.9 mmol/L (21.0-32.0); CREATININE 0.9 mg/dL (0.55-1.02); Calcium 8.2 mg/dL (8.5-10.1); Chloride 106 mmol/L (98-107); Estimated GFR 64.63 (mL/min/1.73m2); Glucose 85 mg/dL (74-106); Magnesium 1.8 mg/dL (1.8-2.4); Potassium 3.5 mmol/L (3.5-5.1); Sodium 140 mmol/L (136-145)
[2022-01-28 07:26] VITALS: BP 103/68; PULSE 70; RESP 20; TEMP 36.1; O2SAT 94
[2022-01-28] MEDS: Atorvastatin 40 MG TAB PO (07:45)
[2022-01-28] MEDS: methIMAzole 5 MG TAB 10 MG PO (07:45)
[2022-01-28] MEDS: Carvedilol 3.125 MG TAB PO (07:45)
[2022-01-28] MEDS: Oseltamivir 30 MG CAP PO (07:45)
[2022-01-28] MEDS: Lisinopril 5 MG TAB 2.5 MG PO (07:46)
--- NOTE | 2022-01-28 09:10 | PDOC.CMPRO ---
- If Service Date Differs Date of service: 01/28/22 Time of Service: 09:10 Care Management Progress Note S/O: Caitlin is being closely monitored and treated for Influenza A. She is receiving Tamiflu, IV hydration and Zofran PRN. Caitlin will be evaluated for further needs prior to discharge. PT consult was done today, outpt PT is not indicated. CM provided pt with info for [employer] at her request. She will contact them personally. She is not interested in referrals to MOW or COA at this time. CM continues to follow. A: 81 year old female admitted to [facility] on 01/26/22 for Influenza, Weakness P: Anticipate, Caitlin will discharge home via private vehicle with family when medically ready. Caitlin will follow up with community providers and discharge plan of care as prescribed. Per PT consult, no outpatient PT is indicated at this time.
--- NOTE | 2022-01-28 10:09 | IN_ITS ---
Date of service: 01/28/22 Time of Service: 10:09 PT Notes Visit Reasons: Influenza, Weakness Physical Therapy Inpatient Initial Evaluation Date: 01/28/2022 Referring Doctor: Pita Powell NP PT Orders: PT CONSULT: D/C Non-PT dependent Precautions: Fall. CONTACT PRECAUTIONS. Activity as tolerated. Patient Profile/Admitting Diagnosis: 81-year-old female who presented to the ED on 01/27/2022 with weakness, cough, vomitting, and pain in B hips due to a fall at home. Patient is diagnosed with influenza A. R and L hip radiographs are negative for fracture. PMHX: All Active Problems?(Updated 01/26/22 @ 18:54 by Agapito Palomo MD) Influenza (Acute) Eyelid lesion (Acute) Cardiomyopathy (Acute) Skin lesion of face (Acute) Acute kidney injury (Acute) CHF (congestive heart failure) (Acute) Graves disease (Acute 10/12/19) Roman Pizano MD [facility] [place] Fatigue (Acute) EKG abnormalities (Acute) Tachycardia (Acute) Hyperthyroidism (Chronic) Forgetfulness (Acute) Abnormal blood chemistry (Acute) Depression (Chronic 04/14/14) Elevated hemoglobin A1c (Chronic) History of anemia (Acute) Mumps (Acute 12/16/16) Rheumatic fever (Acute 12/16/16) Tobacco use disorder (Acute) Varicella (Acute 12/16/16) Status post total left knee replacement (Chronic) 2007 Internal derangement of right knee (Acute) Injection: 06/30/2018; 03/04/2018; 12/23/2017 Restless legs syndrome (Acute 06/25/12) Palpitations (Acute 12/16/16) Osteoarth NOS-l/leg (Acute 06/25/12) Loc osteoarth NOS-l/leg (Acute 06/25/12) Impaired fasting glucose (Acute 06/28/12) Hyperlipidemia (Chronic 04/24/11) PCEq 12.5%; LDL baseline 174 12/2016 labwork: 10-year ASCVD risk = ~23.2% --> switched from moderate to high intensity statin therapy Chronic kidney disease, stage III (moderate) (Acute 07/29/12) 12/2010 US WNL Anxiety (Chronic) Benign hypertension (Chronic) Gastroesophageal reflux disease (Chronic) Mechanical complication of internal orthopedic device (Acute 11/29/12) 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 Revision femoral component of left total knee replacement 11-29-12 by Cy Valdivia M.D. Medical History? Anxiety BCC (basal cell carcinoma) (~11/2021) R Medial [place] CKD (chronic kidney disease) Depression Hyperlipidemia IFG (impaired fasting glucose) OA (osteoarthritis) Surgical History? Extraction of cataract B/L Replacement of total knee joint (10/04/07) LEFT S/P Mohs surgery for basal cell carcinoma (~12/09/21) R Medial [place] Social History/Home Situation: Daughter lives with patient in an apartment with two steps to enter with rails on B sides. 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 Independent with all aspects of ADLs prior to admission. Still drives. Equipment Owned/DME: [employer] Subjective: Denies pain in B hips. Denies nausea, chest pain, headache, dizziness throughout session. Objective: General Observation: IV access in L UE. Mental Status: Alert and oriented as to person, place, time, and purpose. Able to pay attention, focus, and respond appropriately. Pain: Denies Vital Signs: WNL as closely monitored by nursing staff ROM: Right Upper Extremity: Shoulder Flexion WFL. Shoulder abduction WFL. Elbow flexion WFL. Wrist flexion WFL. Functional opening and closing of hand WFL. Left Upper Extremity: Shoulder Flexion WFL. Shoulder abduction WFL. Elbow flexion WFL. Wrist flexion WFL. Functional opening and closing of hand WFL. Right Lower Extremity: Hip flexion WFL. Hip abduction WFL. Knee flexion WFL. Ankle dorsiflexion WFL. Ankle plantarflexion WFL. Left Lower Extremity: Hip flexion WFL. Hip abduction WFL. Knee flexion WFL. Ankle dorsiflexion WFL. Ankle plantarflexion WFL. Strength: Right Upper Extremity: Shoulder flexors 4+/5. Shoulder abductors 4+/5. Elbow flexors 5/5. Elbow extensors 5/5. [employer] Leak [employer]ester strong. Left Upper Extremity: Shoulder flexors 4+/5. Shoulder abductors 4+/5. Elbow flexors 5/5. Elbow extensors 5/5. [employer] Leak Tester strong. Right Lower Extremity: Hip flexors 4+/5. Hip abductors 4+/5. Knee flexors 5/5. Knee extensors 4+/5. Ankle dorsiflexors 4+/5. Ankle plantarflexors 4+/5. Left Lower Extremity: Hip flexors 4+/5. Hip abductors 4+/5. Knee flexors 5/5. Knee extensors 4+/5. Ankle dorsiflexors 4+/5. Ankle plantarflexors 4+/5. Bed Mobility/Transfers: Rolling independent Supine to sit independent Sit to supine independent Sit to stand independent Stand to sit independent Bed to reclining chair independent Reclining chair to bed independent Gait: Instructed patient with level surface ambulation of 200 feet requiring inde pendently using FWW. Argelia decreased. 20 feet without AD inside room after resting for a minute. Verbalized feeling a little bit unstable without the walker and would like to try out unassisted ambulation some more later on before going home. Balance: Static Sitting: Normal Dynamic Sitting: Normal Static Standing: Good Dynamic Standing: Fair Special Tests: Mobility Limitations Standardized Measure [facility] AM-PAC 6 clicks Basic Mobility Inpatient Short Form: Raw Score: 23 CMS Score: 11% deficit Informed Consent/Education: Patient was instructed in purpose of PT consult and plan of care. Agreeable to proceed with established PT POC to achieve personal goals. Assessment: Patient presents with clinical signs and symptoms consistent with curr ent/admitting diagnoses that have resulted to mobility limitations, gait instability, generalized weakness, and overall ADL decline as demonstrated by the following impairment level findings: 1. Impaired sitting/standing balance 2. Impaired activity tolerance Impairments are contributing to the following functional limitations: 1. Increased completion time for mobility ADL performance 2. Increased risk for falls 3. Difficulty with managing steps alone safely Patient is assessed as a 42974 low complexity based on the following: History: 81-year-old female with past medical history as indicated above Examination: Demonstrable impairment in strength, balance, and mobility level with underlying impairments and functional limitations as exhibited above as well as deficit score of 11% utilizing the [facility] Mobility Inpatient Short Form Presentation: Stable Decision Makin low complexity Goals: Goals X1 week 1. Independent gait on level surface with use of no AD for at least 300 feet without report of pain nor dyspnea 2. Independent stair negotiation while holding onto B rails for at least 2 steps without report of pain nor dyspnea 3. Independent with home exercise program 4. Good static and dynamic standing balance/tolerance Plan of Care/Treatment Plan: Will plan to see patient before she leaves this afternoon for another trial of unassisted ambulation in the hallway and stair negotiation. DISCHARGE RECOMMENDATIONS: [X] Home with no services. Home with no services needed. [] Home with services [specify] [] Home with outpatient PT [] [] SNF for continued rehabilitation [] [] Group Home Care [] [] SNF versus LTC based on ability to participate and progress [] TREATMENT CODE/TIME: 16833 x 20 minutes, 30626 x 13 minutes beginning at 10:09 AM. Thank you for the opportunity to participate in the care of this patient. Rehana Presley PT, DPT, CLT [facility] [place], [place]
--- NOTE | 2022-01-28 14:25 | DSE_ITS ---
Date of service: 01/28/22 Time of Service: 14:26 DS: Diagnosis Discharge Diagnosis (1) Influenza: Status: Resolved Discharge Plan Disposition Patient Disposition: Home Condition: Good Discharge Details Reason For Visit: Influenza, Weakness Admit Date/Time: 01/26/22 18:57 Admit Provider: Agapito Palomo Attending Provider: Agapito Palomo Primary Care Provider: Jinny Camacho Hospital Course Hospital Course: This is an 81 yo female with past medical history of CHF, hyperthyroidism, depression, anemia, and cardiomyopathy. She presented to the [facility] ED with complaint of two days of dry cough and post-tussive vomiting. No CP, SOB, fever or chills. Generalized weakness, and on the day of admission slumped to the floor. Stated she did not fall and there was no LOC. She felt weak and could not get back up, eventually transferred to ED. In ED hip films negative. Flu positive She has had the flu vaccine. COVID and RSV negative. She was unable to ambulate safely and was placed on observation status on the medical floor. She was started on Tamiflu. ?She had no oxygen requirements, felt stronger the next day and was discharged to home stable. Discussed with Dr Baez Home Meds and New Rx's Prescriptions: New oseltamivir [Tamiflu] 75 mg capsule 75 mg PO BID 5 Days Qty: 10 0RF Continued atorvastatin 40 mg tablet 40 mg PO DAILY Qty: 90 3RF carvedilol 3.125 mg tablet 3.125 mg PO BID Qty: 180 3RF fluoxetine 20 mg capsule 20 mg PO HS Qty: 90 3RF furosemide 20 mg tablet 10 mg PO BID@0830,1600 Qty: 90 3RF lisinopril 5 mg tablet 2.5 mg PO DAILY Qty: 45 3RF Rx Instructions: Or as directed for CHF (stop all other doses of Lisinopril, 11/2019) methimazole 10 mg tablet See Rx Instructions .ROUTE .COMPLEX Qty: 90 3RF Dose Instruction: TAKE 1 TABLET BY MOUTH DAILY Rx Instructions: TAKE 1 TABLET BY MOUTH DAILY potassium chloride [Klor-Con M20] 20 mEq tablet,ER particles/crystals 20 meq PO DAILY Qty: 90 3RF flu vacc quad 2018-(6mos up) 60 mcg (15 mcg x 4)/0.5 mL suspension 0.5 ml IM ONCE Qty: 0.5 0RF acetaminophen [Acetaminophen Extra Strength] 500 MG tablet 500 mg PO Q4H PRN Qty: 2 Label Comments: Not taking at present. CG Discharge Instructions Instructions: Influenza (DC) Stand Alone Forms: Nursing Discharge Form Referrals: Jinny Camacho NP [Primary Care Provider] - 02/06/22 11:30 am () Activity:: Activity as Tolerated Equipment/Supplies:: No Equipment Needed Diet:: As Tolerated Discharge Orders Discharge Orders: Discharge Order (Routine); Ordered 01/28/22 Ordered By: Pita Powell Discharge Data Discharge Date/Time-TO BE ENTERED AT DEPARTURE: 01/28/22 16:33 DS: Summary Time Spent with Patient providing and/or coordinating discharge services: Less than 30 minutes Status at Discharge Functional status at discharge: uses cane/walker Overall status at discharge: patient is progressing back to baseline Mental Status: mental status grossly normal Speech and Movement: speech and movement normal Mood: congruent mood Affect: normal affect Exam Psych Mental Status: mental status grossly normal Speech and Movement: speech and movement normal Mood: congruent mood Affect: normal affect DS: Data Vitals/I&O Vitals and I&O: Vital Signs Temperature 36.1 C L 01/28/22 07:26 Temperature Source Tympanic 01/28/22 07:26 Pulse 70 01/28/22 07:26 Pulse Rhythm Regular 01/28/22 13:17 Pulse 102 H 01/26/22 16:40 Respiratory Rate 20 01/28/22 07:26 Respiratory Effort 01/28/22 13:17 Respiratory Depth Normal 01/28/22 13:17 Respiratory Pattern Normal 01/28/22 13:17 Blood Pressure 103/68 01/28/22 07:26 Blood Pressure Position Supine 01/26/22 14:56 Pulse Oximetry 94 01/28/22 07:26 Oxygen Delivery Method Room Air 01/28/22 07:26 Oxygen Flow Rate 0 01/28/22 07:26 Pain Level 0 01/28/22 03:01 Comment 01/27/22 08:17 Intake & Output 01/27/22 01/28/22 01/28/22 23:59 11:59 23:59 Intake Total 1082.5 / 2332.5 Output Total 450 / 825 300 / 300 Balance 632.5 / 1507.5 -300 / -300 Intake: IV 1082.5 / 2082.5 Output: Urine 450 / 825 300 / 300 Other: Urine Color Pale Yellow Yellow Urine Appearance Clear Clear Clear Urine Odor Normal Comment mildly incont from coughing, also voided on toilet pt voiding independently Stool Size Small Moderate Stool Characteristics Soft Soft Formed Voiding Methods Toilet Toilet Data Completed and Pending Labs on day of discharge: Labs from last 24 hours 01/28/22 01/28/22 06:00 06:00 WBC 4.19 L RBC 3.77 L Hgb 11.2 Hct 34.5 L MCV 92 MCH 29.7 MCHC 32.5 RDW 13.3 Plt Count 145 MPV 9.9 Immature Gran % 0.2 Neutrophils % 31.3 Lymphocytes % 47.3 Monocytes % 18.1 Eosinophils % 2.4 Basophils % 0.7 Nucleated RBC % 0.0 Absolute Neutrophils 1.31 Absolute Lymphocytes 1.98 Absolute Monocytes 0.76 Absolute Eosinophils 0.10 Absolute Basophils 0.03 Sodium 140 Potassium 3.5 Chloride 106 Carbon Dioxide 25.9 Anion Gap 8.1 BUN 20 H Creatinine 0.9 Est GFR (CKD-EPI 2020) 64.63 Glucose 85 Calcium 8.2 L Magnesium 1.8 PFSH All Active Problems (Updated 01/29/22 @ 00:05 by CHARLES RUELAS) Influenza A (Acute) Eyelid lesion (Acute) Cardiomyopathy (Acute) Skin lesion of face (Acute) Acute kidney injury (Acute) CHF (congestive heart failure) (Acute) Graves disease (Acute 10/12/19) Roman [place]iz[place] [facility] [place] (Acute) EKG abnormalities (Acute) Tachycardia (Acute) Hyperthyroidism (Chronic) Forgetfulness (Acute) Abnormal blood chemistry (Acute) Depression (Chronic 04/14/14) Elevated hemoglobin A1c (Chronic) History of anemia (Acute) Mumps (Acute 12/16/16) Rheumatic fever (Acute 12/16/16) Tobacco use disorder (Acute) Varicella (Acute 12/16/16) Status post total left knee replacement (Chronic) 2007 Internal derangement of right knee (Acute) Injection: 06/30/2018; 03/04/2018; 12/23/2017 Restless legs syndrome (Acute 06/25/12) Palpitations (Acute 12/16/16) Osteoarth NOS-l/leg (Acute 06/25/12) Loc osteoarth NOS-l/leg (Acute 06/25/12) Impaired fasting glucose (Acute 06/28/12) Hyperlipidemia (Chronic 04/24/11) PCEq 12.5%; LDL baseline 174 12/2016 labwork: 10-year ASCVD risk = ~23.2% --> switched from moderate to high intensity statin therapy Chronic kidney disease, stage III (moderate) (Acute 07/29/12) 12/2010 US WNL Anxiety (Chronic) Benign hypertension (Chronic) Gastroesophageal reflux disease (Chronic) Mechanical complication of internal orthopedic device (Acute 11/29/12) 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 Revision femoral component of left total knee replacement 11-29-12 by Cy Valdivia M.D. Medical History Anxiety BCC (basal cell carcinoma) (~11/2021) R Medial [place] CKD (chronic kidney disease) Depression Hyperlipidemia IFG (impaired fasting glucose) OA (osteoarthritis) Surgical History Extraction of cataract B/L Replacement of total knee joint (10/04/07) LEFT S/P Mohs surgery for basal cell carcinoma (~12/09/21) R Medial [place] Family History Mother , ??? at age 56. Neoplasm Abdominal Father , Heart issues at age 77. Heart disease Myocardial infarction Neoplasm Colon CA dx'ed ??? Son Diabetes Daughter No problems noted. 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
[2022-01-28 14:31] VITALS: BP 106/54; PULSE 85; RESP 16; TEMP 36.7; O2SAT 97
--- NOTE | 2022-01-28 15:36 | CMDISCH_ITS ---
- If Service Date Differs Date of service: 01/28/22 Time of Service: 15:36 LACE Index Scoring Tool - Questions: Length of Stay (in days): 2 Acuity (Admit via E.D.?): Yes Comorbidities: Any Tumor (Basal cell ca. ), Liver or Renal Disease (CKD) E.D. Visits: 1 - Answers: Total Score: 11 Risk of Readmission: High Risk Care Management Discharge Reason for Hospitalization: Influenza, Weakness Discharge Plan: Caitlin is discharged home via private vehicle with daughter. New RX is transmitted to [facility]. Caitlin will follow up with her PCP on 02/06/22 @1130 as scheduled. Caitlin will call [facility] to find out about services, at her convenience. No [facility] services are ordered. Patient/Family Education Needs: Review discharge instructions, limitations, medications and plan to follow up with community providers. Discuss ask me three and goals of self care.
--- NOTE | 2022-01-28 15:55 | PT.INTREAT ---
Date of service: 01/28/22 Time of Service: 13:10 PT Notes Visit Reasons: Influenza, Weakness 25 minutes; [id number] x2 (13:10)
--- NOTE | 2022-01-28 16:29 | CHAPLAIN ---
Caitlin was resting in bed when I visited. She was pleasant and engaged in a brief conversation. I explained my role and offered support.
--- NOTE | 2022-01-28 18:10 | PT.INDS ---
PT Notes Visit Reasons: Influenza, Weakness Physical Therapy Inpatient Discharge Summary Date: 01/28/2022 Dates of Service: 01/28/2022 only This is a clinical summary of care provided for the duration of dates listed above. No charge was made in the completion of this documentation. Referring Doctor:Guillermo Powell,? DIRECTOR FAMILY PT Orders: PT CONSULT: D/C Non-PT dependent Precautions: Fall. CONTACT PRECAUTIONS. Activity as tolerated. Patient Profile/Admitting Diagnosis:? 81-year-old female who presented to the ED on 01/27/2022 with weakness, cough, vomitting, and pain in B hips due to a fall at home.? Patient is diagnosed with influenza A.? R and L hip radiographs are negative for fracture. PMHX: All Active Problems?(Updated 01/26/22 @ 18:54 by Agapito Palomo MD) Influenza (Acute) Eyelid lesion (Acute) Cardiomyopathy (Acute) Skin lesion of face (Acute) Acute kidney injury (Acute) CHF (congestive heart failure) (Acute) Graves disease (Acute 10/12/19) Roman Pizano [place] [facility] [place]igue (Acute) EKG abnormalities (Acute) Tachycardia (Acute) Hyperthyroidism (Chronic) Forgetfulness (Acute) Abnormal blood chemistry (Acute) Depression (Chronic 04/14/14) Elevated hemoglobin A1c (Chronic) History of anemia (Acute) Mumps (Acute 12/16/16) Rheumatic fever (Acute 12/16/16) Tobacco use disorder (Acute) Varicella (Acute 12/16/16) Status post total left knee replacement (Chronic) 2007 Internal derangement of right knee (Acute) Injection: 06/30/2018; 03/04/2018; 12/23/2017 Restless legs syndrome (Acute 06/25/12) Palpitations (Acute 12/16/16) Osteoarth NOS-l/leg (Acute 06/25/12) Loc osteoarth NOS-l/leg (Acute 06/25/12) Impaired fasting glucose (Acute 06/28/12) Hyperlipidemia (Chronic 04/24/11) PCEq 12.5%; LDL baseline 174 12/2016 labwork: 10-year ASCVD risk = ~23.2% --> switched from moderate to high intensity statin therapy Chronic kidney disease, stage III (moderate) (Acute 07/29/12) 12/2010 US WNL Anxiety (Chronic) Benign hypertension (Chronic) Gastroesophageal reflux disease (Chronic) Mechanical complication of internal orthopedic device (Acute 11/29/12) 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 Revision femoral component of left total knee replacement 11-29-12 by Cy Valdivia M.D. Medical History? Anxiety BCC (basal cell carcinoma) (~11/2021) R Medial [place] CKD (chronic kidney disease) Depression Hyperlipidemia IFG (impaired fasting glucose) OA (osteoarthritis) Surgical History? Extraction of cataract B/L Replacement of total knee joint (10/04/07) LEFT S/P Mohs surgery for basal cell carcinoma (~12/09/21) R Medial [place] Social History/Home Situation: Daughter lives with patient in an apartment with two steps to enter with rails on B sides.? 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 Independent with all aspects of ADLs prior to admission.? Still drives. Equipment Owned/DME: [facility] Subjective: NT. See most recent MODELING AND SIMULATION ANALYST notes. Objective: General Observation: NT. See most recent MODELING AND SIMULATION ANALYST notes. Mental Status: NT. See most recent MODELING AND SIMULATION ANALYST notes. Pain: NT. See most recent MODELING AND SIMULATION ANALYST notes. Vital Signs: NT. See most recent MODELING AND SIMULATION ANALYST notes. ROM: Right Upper Extremity: ? Shoulder Flexion WFL. Shoulder abduction WFL. Elbow flexion WFL. Wrist flexion WFL. Functional opening and closing of hand WFL. Left Upper Extremity:? Shoulder Flexion WFL. Shoulder abduction WFL. Elbow flexion WFL. Wrist flexion WFL. Functional opening and closing of hand WFL. Right Lower Extremity: Hip flexion WFL. Hip abduction WFL. Knee flexion WFL. Ankle dorsiflexion WFL. Ankle plantarflexion WFL. Left Lower Extremity: Hip flexion WFL. Hip abduction WFL. Knee flexion WFL. Ankle dorsiflexion WFL. Ankle plantarflexion WFL. Strength: Right Upper Extremity: Shoulder flexors 4+/5. Shoulder abductors 4+/5. Elbow flexors 5/5. Elbow extensors 5/5. Snag Grinder strong. Left Upper Extremity: Shoulder flexors 4+/5. Shoulder abductors 4+/5. Elbow flexors 5/5. Elbow extensors 5/5. Snag Grinder strong. Right Lower Extremity: Hip flexors 4+/5. Hip abductors 4+/5. Knee flexors 5/5. Knee extensors 4+/5. Ankle dorsiflexors 4+/5. Ankle plantarflexors 4+/5. Left Lower Extremity: Hip flexors 4+/5. Hip abductors 4+/5. Knee flexors 5/5. Knee extensors 4+/5. Ankle dorsiflexors 4+/5. Ankle plantarflexors 4+/5. Bed Mobility/Transfers: Rolling independent Supine to sit independent Sit to supine independent Sit to stand independent Stand to sit independent Bed to reclining chair independent Reclining chair to bed independent Gait: Instructed patient with level surface ambulation of 200 feet requiring independently using FWW.? Argelia decreased.? 20 feet without AD inside room after resting for a minute.? Verbalized feeling a little bit unstable without the walker and would like to try out unassisted ambulation some more later on before going home. Balance: Static Sitting: Normal Dynamic Sitting: Normal Static Standing: Good Dynamic Standing: Good Assessment: Patient presents with clinical signs and symptoms consistent with current/admitting diagnoses that have resulted to mobility limitations, gait instability, generalized weakness, and overall ADL decline as demonstrated by the following impairment level findings: 1.? Impaired activity tolerance Impairments are contributing to the following functional limitations: 1.? Increased completion time for mobility ADL performance Goals: Goals X1 week 1. Independent gait on level surface with use of no AD for at least 300 feet without report of pain nor dyspnea MET 2. Independent stair negotiation while holding onto B rails for at least 2 steps without report of pain nor dyspnea MET 3. Independent with home exercise program MET 4. Good static and dynamic standing balance/tolerance MET Plan of Care/Treatment Plan: Will plan to see patient before she leaves this afternoon for another trial of unassisted ambulation in the hallway and stair negotiation. DISCHARGE RECOMMENDATIONS: [X] ? Home with no services.? Home with no services needed. [] ? Home with services [specify] [] ? Home with outpatient PT [] [] ? SNF for continued rehabilitation [] [] ? [facility] [] [] ? SNF versus LTC based on ability to participate and progress [] TREATMENT CODE/TIME: AL Thank you for the opportunity to participate in the care of this patient. Rehana Presley PT, DPT, CLT [facility] [place], [place]
== END 2022-01-28 16:33 | disposition home or self-care (01) ==
LOC: ER 19:11 → MS 20:00
PROVIDERS: Nurse Practitioner Family; Admitting Provider General Practice; Emergency Provider Student in an Organized Health Care Education/Training Program; PCP Nurse Practitioner; Visit Provider General Practice
DX: J11.1 Influenza due to unidentified influenza virus with other respiratory manifestations (principal); N17.9 Acute kidney failure, unspecified; M25.552 Pain in left hip; M25.551 Pain in right hip; W18.39XA Other fall on same level, initial encounter; R05.8 Other specified cough; Z79.899 Other long term (current) drug therapy; R53.1 Weakness; I42.9 Cardiomyopathy, unspecified; E05.00 Thyrotoxicosis with diffuse goiter without thyrotoxic crisis or storm; I50.9 Heart failure, unspecified; F32.A Depression, unspecified; F17.210 Nicotine dependence, cigarettes, uncomplicated; Z96.652 Presence of left artificial knee joint; G25.81 Restless legs syndrome; R73.01 Impaired fasting glucose; E78.5 Hyperlipidemia, unspecified; N18.30 Chronic kidney disease, stage 3 unspecified; I13.0 Hypertensive heart and chronic kidney disease with heart failure and stage 1 through stage 4 chronic kidney disease, or unspecified chronic kidney disease; M47.817 Spondylosis without myelopathy or radiculopathy, lumbosacral region; I70.203 Unspecified atherosclerosis of native arteries of extremities, bilateral legs; Z20.822 Contact with and (suspected) exposure to COVID-19
CPT/HCPCS: 36415; 73552; 80048; 80053; 87637; 93005; 96361; 96365; 96374; 97162; 97530; 99285; 71045; 72170; 81003; 81015; 83735; 85025; 93010; 99217; 99219; 99225; G0378; J0131; J2405

== ENCOUNTER → 2022-07-25 10:48 | Outpatient (BNVA) | payer MEDICARE, SELFPAY | PROVIDERS: PCP Nurse Practitioner; Visit Provider Internal Medicine Cardiovascular Disease | DX: I42.9 Cardiomyopathy, unspecified (principal); I10 Essential (primary) hypertension | CPT/HCPCS: 99213 ==

== ENCOUNTER 2022-08-12 11:42 | Outpatient (REF) | payer MEDICARE, SELFPAY ==
[2022-08-12 15:33] LABS: FREE T4 1.18 ng/dL (0.76-1.46); TSH (W/Ref FT4) 0.01 uIU/mL (0.36-3.74)
== END 2022-08-12 11:43 | disposition home or self-care (01) ==
LOC: LBN 11:42
PROVIDERS: PCP Nurse Practitioner; Visit Provider Nurse Practitioner
DX: E05.00 Thyrotoxicosis with diffuse goiter without thyrotoxic crisis or storm (principal); I10 Essential (primary) hypertension
CPT/HCPCS: 84439; 84443

== ENCOUNTER 2022-12-31 02:02 | Outpatient (CLI) | payer MEDICARE, SELFPAY ==
[2022-12-31 13:33] LABS: FREE T4 0.98 ng/dL (0.76-1.46); TSH 0.04 uIU/mL (0.36-3.74)
== END 2022-12-31 02:03 | disposition home or self-care (01) ==
LOC: LBO 02:02
PROVIDERS: Absent Provider Nurse Practitioner; PCP Nurse Practitioner; Visit Provider Nurse Practitioner
DX: E05.90 Thyrotoxicosis, unspecified without thyrotoxic crisis or storm (principal)
CPT/HCPCS: 36415; 84439; 84443

== ENCOUNTER 2023-07-31 10:36 | Outpatient (CLI) | payer MEDICARE, SELFPAY | END 2023-07-31 10:37 | disposition home or self-care (01) | LOC: DI.CARD 10:37 | PROVIDERS: PCP Nurse Practitioner; Visit Provider Internal Medicine Cardiovascular Disease | CPT/HCPCS: 93010 ==

== ENCOUNTER → 2023-08-10 09:57 | Outpatient (BNVA) | payer MEDICARE, SELFPAY | PROVIDERS: PCP Nurse Practitioner; Referring Provider Nurse Practitioner; Visit Provider Internal Medicine Cardiovascular Disease | DX: I42.9 Cardiomyopathy, unspecified (principal) | CPT/HCPCS: 99213 ==

== ENCOUNTER 2023-08-19 09:07 | Emergency (ER) | payer MEDICARE, SELFPAY ==
[2023-08-19 09:08] VITALS: BP 164/82; PULSE 99; RESP 15; TEMP 36.9; O2SAT 98
[2023-08-19 09:12] VITALS: BP 164/82; PULSE 99; RESP 15; TEMP 36.9; O2SAT 98
--- NOTE | 2023-08-19 09:30 | ED.GENADUL_ITS ---
Discharge Plan Disposition Patient Disposition: Home Condition: Stable Discharge Details Clinical Impression: Dental infection Primary Care Provider: Jinny Camacho ED Provider: Esteban Duron Home Meds and New Rx's Prescriptions: New clindamycin HCl 150 mg capsule 450 mg PO TID 10 Days Qty: 90 0RF chlorhexidine gluconate 0.12 % mouthwash 15 ml mucous membrane BID Qty: 1893 0RF Continued flu vacc quad 2018-19(6mos up) 60 mcg (15 mcg x 4)/0.5 mL suspension 0.5 ml IM ONCE Qty: 0.5 0RF atorvastatin 40 mg tablet 40 mg PO DAILY Qty: 90 3RF fluoxetine 20 mg capsule 20 mg PO HS Qty: 90 3RF furosemide 20 mg tablet 10 mg PO BID@0830,1600 Qty: 90 3RF acetaminophen [Acetaminophen Extra Strength] 500 MG tablet 500 mg PO Q4H PRN Qty: 2 Patient Comments: Not taking at present. CG methimazole 10 mg tablet See Rx Instructions .ROUTE .COMPLEX Qty: 135 3RF Dose Instruction: TAKE 1 TABLET BY MOUTH DAILY Rx Instructions: TAKE 1.5 TABLET BY MOUTH DAILY potassium chloride [Klor-Con M20] 20 mEq tablet,ER particles/crystals 20 meq PO DAILY Qty: 90 3RF carvedilol 3.125 mg tablet 3.125 mg PO BID Qty: 180 3RF Discharge Instructions Instructions: Clindamycin (Systemic), Dental Pain, Chlorhexidine Gluconate (Oral) Additional Instructions: You were seen in the emergency department for your right lower dental infection. I am prescribing the antibiotic clindamycin for this sent to [facility] in [place]. I have also sent an antiseptic mouth rinse that is prescription strength to the same pharmacy. For pain relief, please use therapeutic dosing of Tylenol (acetamenophen) & Advil (ibuprofen) in an alternating fashion as follows: Take 650mg of Tylenol every 6 hours without missing doses- that is 4 times per day. Jail in between the Tylenol dosings, take 400-600mg of Advil also on a 6 hour schedule, that is also 4 times per day. The daily maximum dosing of Tylenol is 4000mg, and the daily maximum dosing of Advil is 2400mg. This is safe to do for weeks. Please note that some common cold medications & prescription pain medications may contain acetamenophen and you need to read OTC drug labels and factor that in to maximum daily dosings. Research homeopathic remedies like clove's for dental pain by Google search, use topical [id number] Anbesol to topically applied to the area of pain each day before mealtimes and before bed. Follow-up with your planned dental visits, please return to the ED for any inability to open or close your jaw, significant focal muffled voice changes, excessive drooling or inability to manage her secretions or severe increase in facial swelling Referrals: Jinny Camacho NP [Primary Care Provider] - Discharge Data Discharge Date/Time-TO BE ENTERED AT DEPARTURE: 08/19/23 10:02 HPI General Date/Time Provider Initiated Documentation: 08/19/23 09:30 . HPI Narrative: 83 year-old female presents to ED today by POV/ambulating with a chief complaint of R lower dental pain with onset over the past few days. Patient has veneers to entire top row- was in process of getting bottoms done when the dental practice closed- has four front bottom teeth missing and some decay at bases of R canine and first molar on lower row. Quality described as throbbing pain, no radiation to trimus, vocal changes, excessive drooling, facial swelling/erythema, fever. Severity is described as moderate. Palliating factors include nothing specific. Provoking factors include nothing specific. Events leading up to the incident/Associated Symptoms: Patient has been referred to a new dentist at [facility]. Patient not anticoagulated. Related Data Home Medications Medication Instructions Recorded Confirmed acetaminophen 500 mg tablet 500 mg PO Q4H PRN ##2 12/21/12 08/10/23 (Acetaminophen Extra Strength) methimazole 10 mg tablet See Rx Instructions .Route 08/13/22 08/10/23 .COMPLEX #135 tabs carvedilol 3.125 mg tablet 3.125 mg PO BID #180 tabs 01/12/23 08/10/23 potassium chloride 20 mEq 20 meq PO DAILY #90 tabs 01/12/23 08/10/23 tablet,extended release(part/cryst) (Klor-Con M) atorvastatin 40 mg tablet 40 mg PO DAILY #90 tab-caps 01/20/23 08/10/23 fluoxetine 20 mg capsule 20 mg PO HS #90 tabs 01/20/23 08/10/23 furosemide 20 mg tablet 10 mg (1/2 x 20 mg) PO 01/20/23 08/10/23 BID@0830,1600 #90 tabs chlorhexidine gluconate 0.12 % 15 ml mucous membrane BID #1,893 mL 08/19/23 mouthwash clindamycin HCl 150 mg capsule 450 mg (3 x 150 mg) PO TID 10 days 08/19/23 #90 caps Previous Rx's Medication Instructions Recorded methimazole 10 mg tablet See Rx Instructions .Route 08/13/22 .COMPLEX #135 tabs carvedilol 3.125 mg tablet 3.125 mg PO BID #180 tabs 01/12/23 potassium chloride 20 mEq 20 meq PO DAILY #90 tabs 01/12/23 tablet,extended release(part/cryst) (Klor-Con M) atorvastatin 40 mg tablet 40 mg PO DAILY #90 tab-caps 01/20/23 fluoxetine 20 mg capsule 20 mg PO HS #90 tabs 01/20/23 furosemide 20 mg tablet 10 mg (1/2 x 20 mg) PO 01/20/23 BID@0830,1600 #90 tabs chlorhexidine gluconate 0.12 % 15 ml mucous membrane BID #1,893 mL 08/19/23 mouthwash clindamycin HCl 150 mg capsule 450 mg (3 x 150 mg) PO TID 10 days 08/19/23 #90 caps Allergies Allergy/AdvReac Type Severity Reaction Status Date / Time Sulfa (Sulfonamide Allergy Unknown ? Verified 08/19/23 09:14 Antibiotics) Penicillins Allergy RASH Verified 08/19/23 09:14 acetaminophen AdvReac Intermediate N,V Verified 08/19/23 09:14 meperidine AdvReac Unknown VOMITING Verified 08/19/23 09:14 hydrocodone bitartrate AdvReac NAUSEA/VOMI Verified 08/19/23 09:14 [From Vicodin] TING propoxyphene napsylate AdvReac NAUSEA/VOMI Verified 08/19/23 09:14 [From Darvocet-N 100] TING General Stated Complaint: DentalOral HCINTAN: 4 Review of Systems All systems reviewed & are unremarkable except as noted in HPI and below Exam Narrative Exam Narrative: GENERAL APPEARANCE: Well-nourished, non-toxic, awake and alert, atraumatic, no acute distress. SKIN: Warm, pink, dry, intact, without rashes/lesions/ulcerations. HEAD: Normocephalic, atraumatic, normal hair distribution for gender/age. EYES: Pupils PERRLA, EOMs intact without nystagmus, normal conjunctiva, no exudates on lids/lashes. ENT: Nares patent, no circumoral cyanosis, no facial swelling, severe dental decay to the right lower remaining teeth canines through molars, no visible gingival abscess, no trismus, no facial swelling or erythema, no vocal changes. NECK: Supple, trachea midline, painless cervical ROM. LUNGS/CHEST: Non-labored respirations, normal A/P diameter, symmetrical expansion, no chest wall deformity HEART (CV/PV): Regular rate, no peripheral edema, no JVD. ABDOMEN: Soft, non-distended, no guarding. MSK: Normal ROM, no swelling/deformity to bilateral UEs or LEs, moving all extremities without weakness, no cyanosis, spine midline without tenderness, normal curvature. NEURO: Mental Status AAOx4 - alert to person, place, time, events No facial droop, no forehead involvement. Motor: No focal weakness - strength 5/5 in bilateral UEs and LEs, proximal and distal, symmetric. Sensory: sensation intact to light touch globally. Gait normal: patient ambulated without ataxia into ED room. PSYCH: euthymic, cooperative, pleasant, appropriate speech Course Vital Signs Vital signs: Vital Signs Temperature 36.9 C 08/19/23 09:08 Pulse 99 H 08/19/23 09:08 Respiratory Rate 15 08/19/23 09:08 Blood Pressure 164/82 H 08/19/23 09:08 Pulse Oximetry 98 08/19/23 09:08 Temperature 36.9 C 08/19/23 09:12 Temperature Source Temporal Artery Scan 08/19/23 09:12 Pulse 99 H 08/19/23 09:12 Respiratory Rate 15 08/19/23 09:12 Respiratory Effort Normal 08/19/23 09:11 Blood Pressure 164/82 H 08/19/23 09:12 Blood Pressure Position Sitting 08/19/23 09:12 Pulse Oximetry 98 08/19/23 09:12 Oxygen Delivery Method Room Air 08/19/23 09:12 Oxygen Flow Rate 0 08/19/23 09:12 Pain Level 7 08/19/23 09:12 Medical Decision Making This dictation utilizes [id number] dictation software and may contain unedited grammatical errors. 83 year-old female presents to ED today by POV/ambulating with a chief complaint of R lower dental pain with onset over the past few days. Patient has veneers to entire top row- was in process of getting bottoms done when the dental practice closed- has four front bottom teeth missing and some decay at bases of R canine and first molar on lower row. Quality described as throbbing pain, no radiation to trimus, vocal changes, excessive drooling, facial swelling/erythema, fever. Severity is described as moderate. Palliating factors include nothing specific. Provoking factors include nothing specific. Events leading up to the incident/Associated Symptoms: Patient has been referred to a new dentist at [facility]. Patients' medical history: noncontributory. Family and social history: noncontributory. Pertinent exam findings / vital signs include severe dental decay to the right lower remaining teeth canines through molars, no visible gingival abscess, no trismus, no facial swelling or erythema, no vocal changes. Differential / pathologies of concern include dental infection, abscess, not trismus. Diagnostic studies of: -none. Interventions of: -Rx for clindamycin, chlorhexidine, counseling on sympatomatic at-home treatments. ED Course/Assessment/Plan: 83-year-old female has some dental caries and decay in the right lower canine and first molar, is missing the 4 frontal lower teeth, having no trismus, no visible gingival abscess, no vocal changes or facial swelling or erythema is reasonable to treat her for dental infection with antibiotics only, I did provide a prescription for chlorhexidine and counseled on various symptomatic treatments at home like Tylenol, ibuprofen, topical anesthetics, clove oil and other homeopathic remedies and to follow-up with a dentist, strict return criteria for inability to open or close the jaw, increasing facial swelling with fever, vocal changes. Findings not consistent with POLITICAL THEORY PROFESSOR/RPA, large dental abscess, facial cellulitis, trismus. Disposition of dental infection. Patient verbalized understanding of the plan and return to ED criteria and engaged in shared decision making. Medical Records Medical records reviewed: Yes I reviewed the patient's medical records. Quality:SDOH Health Related Social Needs: No Data to Display PFSH All Active Problems (Updated 08/19/23 @ 09:51 by DAVID Ochoa) Dental infection (Acute) COVID (Acute) 03/02/23 Graves' orbitopathy (Acute ~08/2022) 09/09/22 Endocrinology - being managed conservatively Macular hole of right eye (Acute ~05/2022) Asymptomatic bilateral carotid artery stenosis (Acute ~02/2022) 03/10/22 Vascular Surg Influenza A (Acute) Eyelid lesion (Acute) Cardiomyopathy (Acute) Skin lesion of face (Acute) Acute kidney injury (Acute) CHF (congestive heart failure) (Acute) Graves disease (Acute 10/12/19) Roman Pizano MD [facility] Fatigue (Acute) EKG abnormalities (Acute) Tachycardia (Acute) Hyperthyroidism (Chronic) Forgetfulness (Acute) Abnormal blood chemistry (Acute) Depression (Chronic 04/14/14) Elevated hemoglobin A1c (Chronic) History of anemia (Acute) Mumps (Acute 12/16/16) Rheumatic fever (Acute 12/16/16) Tobacco use disorder (Acute) Varicella (Acute 12/16/16) Status post total left knee replacement (Chronic) 2007 Internal derangement of right knee (Acute) Injection: 06/30/2018; 03/04/2018; 12/23/2017 Restless legs syndrome (Acute 06/25/12) Palpitations (Acute 12/16/16) Osteoarth NOS-l/leg (Acute 06/25/12) Loc osteoarth NOS-l/leg (Acute 06/25/12) Impaired fasting glucose (Acute 06/28/12) Hyperlipidemia (Chronic 04/24/11) PCEq 12.5%; LDL baseline 174 12/2016 labwork: 10-year ASCVD risk = ~23.2% --> switched from moderate to high intensity statin therapy Chronic kidney disease, stage III (moderate) (Acute 07/29/12) 12/2010 US WNL Anxiety (Chronic) Benign hypertension (Chronic) Gastroesophageal reflux disease (Chronic) Mechanical complication of internal orthopedic device (Acute 11/29/12) 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 Revision femoral component of left total knee replacement 11-29-12 by Cy Valdivia M.D. Medical History Neoplasm of skin of forehead 10/29/22 [facility] Derm - shave bx done BCC (basal cell carcinoma) (~11/2021) R Medial [place] 10/29/22-R superior forehead-[facility] OA (osteoarthritis) IFG (impaired fasting glucose) CKD (chronic kidney disease) Hyperlipidemia Depression Anxiety Surgical History S/P Mohs surgery for basal cell carcinoma (~12/09/21) R Medial [place] 04/15/22 R Cheek, and chin Replacement of total knee joint (10/04/07) LEFT Extraction of cataract B/L Family History Mother , ??? at age 56. Neoplasm Abdominal Father , Heart issues at age 77. Heart disease Myocardial infarction Neoplasm Colon CA dx'ed ??? Son Diabetes Daughter No problems noted. 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
== END 2023-08-19 10:02 | disposition home or self-care (01) ==
PROVIDERS: Emergency Provider Physician Assistant; PCP Nurse Practitioner
DX: K04.7 Periapical abscess without sinus (principal)
CPT/HCPCS: 99283; 99284

== ENCOUNTER 2023-09-06 10:02 | Emergency (ER) | payer MEDICARE, SELFPAY ==
[2023-09-06] VITALS (8 sets, daily range): BP systolic 99–139; BP diastolic 53–72; PULSE 80–107; RESP 15–20; TEMP 36.4–36.6; O2SAT 95–97
--- NOTE | 2023-09-06 10:10 | ED.GENADUL_ITS ---
Discharge Plan Disposition Patient Disposition: Home Discharge Details Clinical Impression: Acute hypokalemia, Diarrhea Primary Care Provider: Jinny Camacho ED Provider: Roman Matos Home Meds and New Rx's Prescriptions: Continued atorvastatin 40 mg tablet 40 mg PO DAILY Qty: 90 3RF fluoxetine 20 mg capsule 20 mg PO HS Qty: 90 3RF furosemide 20 mg tablet 10 mg PO BID@0830,1600 Qty: 90 3RF acetaminophen [Acetaminophen Extra Strength] 500 MG tablet 500 mg PO Q4H PRN Qty: 2 Patient Comments: Not taking at present. CG methimazole 10 mg tablet See Rx Instructions .ROUTE .COMPLEX Qty: 135 3RF Dose Instruction: TAKE 1 TABLET BY MOUTH DAILY Rx Instructions: TAKE 1.5 TABLET BY MOUTH DAILY potassium chloride [Klor-Con M20] 20 mEq tablet,ER particles/crystals 20 meq PO DAILY Qty: 90 3RF carvedilol 3.125 mg tablet 3.125 mg PO BID Qty: 180 3RF Discharge Instructions Instructions: Hypokalemia, Diarrhea, Adult ED Additional Instructions: You are seen in the emergency department for your diarrhea. Your CAT scan shows no sign of any infections in your stomach. As we discussed if you develop fever or abdominal pain please return to the emergency department. Otherwise please follow-up with your primary care provider later this week patient potassium l evels found to be mildly low. You may take djog-siv-iurfmde medications for diarrhea as needed. HPI General Date/Time Provider Initiated Documentation: 09/06/23 10:10 . HPI Narrative: MDM This is an overall very well-appearing initially tachycardic and mildly hypotensive 83-year-old female with diarrhea intermittently for the past approximately 9 days but reassuring soft abdomen and no fevers for which patient will receive an assessment of her labs and IV fluids. No pain out of proportion to suggest necrotizing soft tissue infection. Given no abdominal pain my suspicion is relatively low for appendicitis. She has had decreased appetite with fatigue and this certainly raises the potential for malignancy given her age so we will complete a CT abdomen pelvis. No fevers so my suspicion is lower for diverticulitis. I considered sepsis however the patient is quite well-appe aring so I did not order blood cultures lactate nor treat empirically with IV antibiotics. No history of AAA so doubt ruptured AAA. Not an alcoholic and no epigastric tenderness so doubt pancreatitis. No dysuria nor frequency so doubt UTI. No nausea vomiting nor past surgical history so my suspicion is low for SBO. No history of inflammatory bowel disease the patient specifically denies Crohn's and ulcerative colitis so my suspicion for IBD is low based on the patient's age. I considered ACS however the patient is not nauseous vomiting nor having any abdominal pain so I do not feel that the diarrhea wa an anginal equivalent. Patient was dizzy several days ago but is no longer dizzy. As result my suspicion is low for posterior circulation CVA so I did not complete a detailed neurological assessment. No history of chemotherapy nor immunocompromise to suggest opportunistic infection. No fevers no recent antibiotic use to suggest C. difficile. No recent travel to suggest increased risk for atypical infection. Will reassess following labs and imaging. 11:20 AM CBC lacks anemia thrombocytopenia and leukocytosis. Negative COVID influenza rapid swab. 11:28 AM Comprehensive metabolic panel showing hypokalemia with a serum potassium of 2.9 for which patient will receive oral repletion and an ECG to assess for QTc prolongation. Of note patient is on furosemide and does have oral repletion for potassium as outpatient. She reports not missing any doses. No EMY. Mild hyperglycemia and mild anion gap but normal bicarbonate. No acute LFT abnormalities. Patient continues to have a soft nontender abdomen. 12:[address] scan showing no signs of appendicitis. No acute abnormalities. Will ask health unit and coordinator Deena to have the patient's potassium rechecked by her primary care tomorrow. Will advise ED return for fevers inability tolerate p.o. or any abdominal pain. Chronic conditions affecting the care of the patient: CKD hyperlipidemia History obtained from an outside historian: N/A External record review: N/A Diagnostic interpretations performed by me: Per my independent interpretation EKG shows: Normal sinus rhythm at a rate of 84 with interventricular conduction delay QRS of 111 ms. Normal IL. Prolonged QTc at 507 ms. Compared to prior QTc has improved slightly. T wave flattening in V2. No ST segment abnormalities. Compared to prior dated 2 years ago QTc has improved. ]Medications: Potassium Social determinants of health affecting disposition: N/A Management discussed with: N/A Treatment/interventions considered: N/A Response to therapies provided: N/A HPI This is an 83-year-old female with a history of GERD hyperlipidemia and CKD arrived to the emergency department via private vehicle in the setting of diarrhea. Patient reports that 9 days ago she was out in the sun more than usual regards. She went home to rest and has intermittently had some diarrhea. She has had decreased appetite. She has had episodes of diarrhea 3 times per day approximately every other day. She was dizzy 3 days ago. She has had no nausea no vomiting. No chest pain. No shortness of breath. No recent antibiotics. No history of inflammatory bowel disease. No blood in her stool. She has been attempting treatment with Imodium. She has not had any syncope. No recent antibiotics. Exam General: Well-appearing in no acute distress speaking in complete sentences. Head: Normocephalic, atraumatic. Eye: Extraocular eye movements intact. No conjunctival injection. No scleral icterus. Ear, nose, mouth, throat: Grossly normal inspection. Normal voice, handling secretions normally. Neck: Trachea midline. Cardiovascular: Well-perfused distal extremities. Regular rate and rhythm. Respiratory: Nonlabored respiration. Clear lungs bilaterally. Gastrointestinal: Nondistended abdomen. Soft. Nontender. No rebound. No guarding. Musculoskeletal: No edema. Moving all 4 extremities spontaneously. Skin: Normal for age and race, grossly normal temperature and turgor. No acute rash. Neurologic: Alert and appropriate, no apparent acute deficits. Psychiatric: Mood and manner are appropriate. Grooming and personal hygiene are appropriate. Related Data Home Medications ?Medication ?Instructions ?Recorded ?Confirmed acetaminophen 500 mg tablet 500 mg PO Q4H PRN ##2 12/21/12 09/06/23 (Acetaminophen Extra Strength) methimazole 10 mg tablet See Rx Instructions .Route 08/13/22 09/06/23 .COMPLEX #135 tabs carvedilol 3.125 mg tablet 3.125 mg PO BID #180 tabs 01/12/23 09/06/23 potassium chloride 20 mEq 20 meq PO DAILY #90 tabs 01/12/23 09/06/23 tablet,extended release(part/cryst) (Klor-Con M) atorvastatin 40 mg tablet 40 mg PO DAILY #90 tab-caps 01/20/23 09/06/23 fluoxetine 20 mg capsule 20 mg PO HS #90 tabs 01/20/23 09/06/23 furosemide 20 mg tablet 10 mg (1/2 x 20 mg) PO 01/20/23 09/06/23 BID@0830,1600 #90 tabs Previous Rx's ?Medication ?Instructions ?Recorded methimazole 10 mg tablet See Rx Instructions .Route 08/13/22 .COMPLEX #135 tabs carvedilol 3.125 mg tablet 3.125 mg PO BID #180 tabs 01/12/23 potassium chloride 20 mEq 20 meq PO DAILY #90 tabs 01/12/23 tablet,extended release(part/cryst) (Klor-Con M) atorvastatin 40 mg tablet 40 mg PO DAILY #90 tab-caps 01/20/23 fluoxetine 20 mg capsule 20 mg PO HS #90 tabs 01/20/23 furosemide 20 mg tablet 10 mg (1/2 x 20 mg) PO 01/20/23 BID@0830,1600 #90 tabs Allergies Allergy/AdvReac Type Severity Reaction Status Date / Time Sulfa (Sulfonamide Allergy Unknown ? Verified 09/06/23 11:55 Antibiotics) Penicillins Allergy RASH Verified 09/06/23 11:55 meperidine AdvReac Unknown VOMITING Verified 09/06/23 11:55 hydrocodone bitartrate (From AdvReac NAUSEA/VOMI Verified 09/06/23 11:55 Vicodin) TING propoxyphene napsylate (From AdvReac NAUSEA/VOMI Verified 09/06/23 11:55 Darvocet-N 100) TING General Stated Complaint: Nausea/Vomit/Diar CHINTAN: 3 Course Vital Signs Vital signs: Vital Signs Temperature 36.6 C 09/06/23 10:06 Pulse 107 H 09/06/23 10:06 Respiratory Rate 16 09/06/23 10:06 Blood Pressure 99/72 L 09/06/23 10:06 Pulse Oximetry 97 09/06/23 10:06 Temperature 36.6 C 09/06/23 10:06 Temperature Source Tympanic 09/06/23 10:06 Pulse 107 H 09/06/23 10:06 Respiratory Rate 16 09/06/23 10:06 Blood Pressure 99/72 L 09/06/23 10:06 Blood Pressure Position Sitting 09/06/23 10:06 Pulse Oximetry 97 09/06/23 10:06 Oxygen Delivery Method Room Air 09/06/23 10:06 Oxygen Flow Rate 0 09/06/23 10:06 Medical Decision Making Quality:SDOH Health Related Social Needs: No Data to Display PFSH All Active Problems (Updated 09/06/23 @ 11:30 by Roman Matos MD) Diarrhea (Acute) Acute hypokalemia (Acute) Dental infection (Acute) COVID (Acute) 03/02/23 Graves' orbitopathy (Acute ~08/2022) 09/09/22 Endocrinology - being managed conservatively Macular hole of right eye (Acute ~05/2022) Asymptomatic bilateral carotid artery stenosis (Acute ~02/2022) 03/10/22 Vascular Surg Influenza A (Acute) Eyelid lesion (Acute) Cardiomyopathy (Acute) Skin lesion of face (Acute) Acute kidney injury (Acute) CHF (congestive heart failure) (Acute) Graves disease (Acute 10/12/19) Roman Pizano MD [facility] Fatigue (Acute) EKG abnormalities (Acute) Tachycardia (Acute) Hyperthyroidism (Chronic) Forgetfulness (Acute) Abnormal blood chemistry (Acute) Depression (Chronic 04/14/14) Elevated hemoglobin A1c (Chronic) History of anemia (Acute) Mumps (Acute 12/16/16) Rheumatic fever (Acute 12/16/16) Tobacco use disorder (Acute) Varicella (Acute 12/16/16) Status post total left knee replacement (Chronic) 2007 Internal derangement of right knee (Acute) Injection: 06/30/2018; 03/04/2018; 12/23/2017 Restless legs syndrome (Acute 06/25/12) Palpitations (Acute 12/16/16) Osteoarth NOS-l/leg (Acute 06/25/12) Loc osteoarth NOS-l/leg (Acute 06/25/12) Impaired fasting glucose (Acute 06/28/12) Hyperlipidemia (Chronic 04/24/11) PCEq 12.5%; LDL baseline 174 12/2016 labwork: 10-year ASCVD risk = ~23.2% --> switched from moderate to high intensity statin therapy Chronic kidney disease, stage III (moderate) (Acute 07/29/12) 12/2010 US WNL Anxiety (Chronic) Benign hypertension (Chronic) Gastroesophageal reflux disease (Chronic) Mechanical complication of internal orthopedic device (Acute 11/29/12) 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 Revision femoral component of left total knee replacement 11-29-12 by Cy Valdivia M.D. Medical History Neoplasm of skin of forehead 10/29/22 [facility] Derm - shave bx done BCC (basal cell carcinoma) (~11/2021) R Medial [place] 10/29/22-R superior forehead-[facility] OA (osteoarthritis) IFG (impaired fasting glucose) CKD (chronic kidney disease) Hyperlipidemia Depression Anxiety Surgical History S/P Mohs surgery for basal cell carcinoma (~12/09/21) R Medial [place] 04/15/22 R Cheek, and chin Replacement of total knee joint (10/04/07) LEFT Extraction of cataract B/L Family History Mother , ??? at age 56. Neoplasm Abdominal Father , Heart issues at age 77. Heart disease Myocardial infarction Neoplasm Colon CA dx'ed ??? Son Diabetes Daughter No problems noted. 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
--- OUTSIDE RECORDS SUMMARY | 2023-09-06 10:19 | XMS_ITS | Encounter Summary ---
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 Thyrotoxicosis without thyroid storm, unspecified thyrotoxicosis type Jinny Camacho APRN [address] [place] [address] Stevo Saucedo MD [facility] [address] OPHTHALMOLOGY [place] [address] Referral ID Status Reason Start Date Expiration Date Visits Requested Visits Authorized [id number] Authorized Consult, Test & Treat PCP Updated and/or Approved 01/28/2023 01/28/2024 6 6 Encounter Details Date Type Department Care Team (Latest Contact Info) Description 01/28/2023 Transcribe Orders eDH Incoming Referrals [phone] Jinny Camacho APRN [address] [place], [place] [id number] Thyrotoxicosis without thyroid storm, unspecified thyrotoxicosis type (Primary Dx); Unspecified exophthalmos; Thyrotoxicosis with diffuse goiter without thyrotoxic crisis or storm Social History Tobacco Use Types Packs/Day Years Used Date Smoking Tobacco: Former Smokeless Tobacco: Never Comments:quit in her 50 's Sex and Gender Information Value Date Recorded Sex Assigned at Not on file Gender Identity Not on file Sexual Orientation Not on file documented as of this encounter Plan of Treatment Scheduled Referrals Name Type Priority Associated Diagnoses Orde r Schedule Referral to Ophthalmology Outpatient Referral Routine 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
--- OUTSIDE RECORDS SUMMARY | 2023-09-06 10:19 | XMS_ITS | Encounter Summary ---
Author Organization [facility] Address [facility] [place] [address] Care Team Providers Care Photoengraving Finisher Name Role Phone Jinny Camacho ZAINAB Primary Care Provider [phone] Encounter Details Date Type Department Care Team (Late st Contact Info) Description 11/11/2022 11:30 AM EDT Office Visit [place] [address] Gurdeep Duenas MD [facility] [place] [address] Graves disease; Graves' orbitopathy Social History Tobacco Use Types Packs/Day Years Used Date Smoking Tobacco: Former Smokeless Tobacco: Never Comments:quit in her 50 's Sex and Gender Information Value Date Recorded Sex Assigned at Not on file Gender Identity Not on file Sexual Orientation Not on file documented as of this encounter Last Filed Vital Signs Vital Sign Reading Time Taken Comments Blood Pressure 134/74 11/11/2022 11:00 AM EDT Pulse 74 11/11/2022 11:00 AM EDT Temperature 36.6 ??C (97.8 ??F) 11/11/2022 1 1:00 AM EDT Respiratory Rate - - Oxygen Saturation 98% 11/11/2022 11: 00 AM EDT Inhaled Oxygen Concentration - - Weight 64.4 kg (141 lb 15.6 oz) 023 11:00 AM EDT Height 162.6 cm (5' 4) 11/11/2022 11:0 0 AM EDT Body Mass Index 24.37 11/11/2022 11:00 AM EDT documented in this encounter Progress Notes * Gurdeep Duenas MD - 11/11/2022 11:30 AM EDT [facility] End[facility]ology [facility] Follow up Patient Chief complaint: hyperthyroidism 2/2 Graves Disease History: Caitlin Marte is a 82 y.o. female with significant PMH of HLD, CHF, Graves Disease, here for follow up of Graves Disease. Accompanied by her daughter today. Last visit with me in 08/2022. She wasoriginally seen by Dr. Pizano in 2019. She had skin cancer surgically removed in 2021 around the right eye. She then developed proptosis of the left eye earlier this year. TFTs were checked and she was found to have a suppressed TSH. Her dose of Methimazole was increased and it was suggested that she see optho. She is currently on Methimazole 15 mg daily. Although her TSH still remained low in 08/2022, I did not change the dose as her free T4 and total T3 were improving. Today, she tells me that her energy is good in the morning and then decreases during the day. Weight has been stable. No change in neck size, no swelling. No neck pain, dysphagia, dysphonia. No chest pain, palpitations, abdominal pain, nausea, vomiting, diarrhea, constipation. No tremors. No heat or cold intolerance. Does not smoke cigarettes. 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 She uses eye drops twice daily for dry eyes. She feels that her eye symptoms have improved and her left eye proptosis has improved. Overall feeling well. Past Medical History: Graves Disease HLD Depression CHF Medications: Current Outpatient Medications: methIMAzole (Tapazole) 10 mg Tablet, Take 1 tablet by mouth daily., Disp: 30 tablet, Rfl: 1 atorvastatin (Lipitor) 40 mg Tablet, One tab, Disp: , Rfl: carvediloL (Coreg) 3.125 mg Tablet, TK 1 T PO BID, Disp: , Rfl: furosemide (Lasix) 20 mg Tablet, 10 mg., Disp: , Rfl: potassium chloride ER (K-Dur/Klor-Con) 20 mEq Tab Sust.Rel. Particle/Crystal, TK 1 T PO D, Disp: , Rfl: FLUoxetine (PROzac) 20 mg Capsule, TAKE 1 CAPSULE BY MOUTH AT BEDTIME, Disp: , Rfl: aspirin EC 81 mg Tablet, Delayed Release (E.C.), Take 81 mg by mouth daily., Disp: , Rfl: lisinopriL (Prinivil;Zestril) 20 mg Tablet, 10 mg., Disp: , Rfl: Allergies: Hydrocodone bitartrate, Pcn [penicillins], Propoxyphene, Sulfa (sulfonamide antibiotics), and Tylenol [acetaminophen] Review of systems: As noted in HPI, all other systems reviewed and negative Patient Vitals for the past 24 hrs: Temp Pulse BP SpO2 11/11/22 1100 36.6 ??C (97.8 ??F) 74 134/74 98 % Physical Exam: General: No acute distress, well appearing Head: atraumatic, normocephalic Eyes: EOMI, + left eye proptosis appears to be improving Neck: supple, non-tender to palpation, no goiter noted Resp: breathing comfortably; chest expansion bilaterally Neuro: no tremor Psych: AAO x 3; normal affect; memory intact Labs/Imaging: Latest Reference Range & Units 09/09/22 14:49 WBC 4.0 - 9.5 x10(3)/mcL 8.5 RBC 4.00 - 5.21 x10(6)/mcL 4.36 Hemoglobin 11.7 - 15.5 g/dL 12.5 Hematocrit 35.7 - 45.8 % 38.7 MCV 82.6 - 94.4 fL 88.8 MCH 27.1 - 32.0 pg 28.7 MCHC 31.7 - 35.0 g/dL 32.3 RDWSD 37.0 - 46.0 fL 44.0 RDWCV 11.5 - 14.1 % 13.4 Platelets 145 - 357 x10(3)/mcL 216 MPV 7.6 - 12.9 fL 9.7 nRBC % Auto % 0.0 nRBC Abs Auto 0.000 - 0.000 x10(3)/mcL 0.000 Neutr Abs (ANC) 1.70 - 6.10 x10(3)/mcL 3.86 Latest Reference Range & Units 09/09/22 14:49 T3, Total 80 - 200 ng/dL 153 Free T4 0.93 - 1.70 ng/dL 0.97 TSH 0.27 - 4.20 mcIU/mL 0.03 (L) TSI <=0.55 IU/L >40.00 (H) (L): Data is abnormally low (H): Data is abnormally high 08/12/2022: TSH 0.01 Free T4 1.18 11/2021: WBC 4.19 (low) Hb 11.2 Hct 34.5 AST 14 ALT 16 Alkaline phosphatase 141 Total bilirubin 0.6 Assessment and Plan: 82 year old woman with hyperthyroidism 2/2 Graves Disease and Graves Orbitopathy Hyperthyroidism 2/2 Graves Disease: Clinically improving. Repeat TSH, free T4, and total T3 today. Continue with Methimazole 15 mg daily, will adjust dose of Methimazole as needed. Will also check labs in 3 months, to be done at [facility], and have her follow up with me in 6 months. Graves Orbitopathy: She has had a flare of her thyroid eye disease with a rise in her TSI. Symptomsare improving, thus defer treatment with steroids or Tepezza at this time, which she is in agreement with. Return visit in 6 months. 30 minutes total time spent seeing patient today, pre-charting/reviewing previous labs/office notes, placing orders and on documentation. Gurdeep Duenas MD Labor Relations Managercyber intelligence analyst Endocrinology Section [facility] documented in this encounter Plan of Treatment Not on file documented as of this encounter Procedures Procedure Name Priority Date/Time Associated Diagnosis Comments HC TOTAL T3 Routine 11/11/2022 12:22 PM EDT Graves disease HC THYROID STIMULATING HORMONE, SERUM Routine 11/11/2022 12:22 PM EDT Graves disease HC FREE THYROXINE (T4) Routine 11/11/2022 12:22 PM EDT Graves disease documented in this encounter Results * T3 Total (11/11/2022 12:22 PM EDT) T3, Total 174 80 - 200 ng/dL [facility] Blood 11/11/2022 12:2 2 PM EDT 11/11/2022 12:26 PM EDT Narrative Resulting Agency Comment Spec In Lab Gurdeep Duenas MD CHEMISTRY ORDERABLES Performing Organization Address City/[facility]/ZIP Co de Phone Number [facility] [place] [place] [address] * (ABNORMAL) T4, free (11/11/2022 12:22 PM EDT) Free T4 0.82(L) 0.93 - 1.70 ng/dL [facility] Comment: Reference Interval (ng/dL): Females: ??First Trimester: 0.97-1.68 ??Second Trimester: 0.77-1.51 ??Third Trimester: 0.77-1.49 Blood 11/11/2022 12:2 2 PM EDT 11/11/2022 12:26 PM EDT Narrative Resulting Agency Comment Spec In Lab Gurdeep Duenas MD CHEMISTRY ORDERABLES Performing Organization Address [facility] Co de Phone Number [facility] [place] [address] * (ABNORMAL) TSH (11/11/2022 12:22 PM EDT) TSH 0.22(L) 0.27 - 4.20 mcIU/mL [facility] Comment: Reference Interval (mcIU/mL): Females: ??First Trimester: 0.23-3.88 ??Second Trimester: 0.22-3.90 ??Third Trimester: 0.44-4.66 Blood 11/11/2022 12:2 2 PM EDT 11/11/2022 12:26 PM EDT Narrative Resulting Agency Comment Spec In Lab Gurdeep Duenas MD CHEMISTRY ORDERABLES Performing Organization Address City/[facility]/ZIP Co de Phone Number [facility] [address] documented in this encounter Visit Diagnoses Diagnosis Graves disease Toxic diffuse goiter without mention of thyrotoxic crisis or storm Graves' orbitopathy Toxic diffuse goiter without mention of thyrotoxic crisis or storm documented in this encounter Care Teams Photoengraving Finisher Relationship Specialty Start Date End Date Jinny Camacho, SALES DEPARTMENT MANAGER [address] [place] [address] PCP - General Internal Medicine 10/04/19 documented as of this encounter
--- OUTSIDE RECORDS SUMMARY | 2023-09-06 10:19 | XMS_ITS | Clinical Summary ---
Author Organization [facility] Address [address] [place] [address] Care Team Providers Care Pond Scaler Name Role Phone JaniceJinny cox INSURANCE UNDERWRITING ASSISTANT Primary Care Provider Allergies No known active allergies Medications Medication Sig Dispensed Refills Start Date End Date Status atorvastatin (LIPITOR) 10 mg tablet Take 1 Tablet by mouth daily. Active carvedilol (COREG) 3.125 mg tablet Take 1 Tablet by mouth 2 times daily with breakfast and dinner. Active FLUoxetine (PROZAC) 10 mg capsule Take 1 Capsule by mouth daily. Active furosemide (LASIX) 20 mg tablet Take 1 Tablet by mouth 2 times daily. Active lisinopriL (PRINIVIL) 10 mg tablet Take 10 mg by mouth daily. Active methIMAzole (TAPAZOLE) 10 mg tablet Take 1 Tablet by mouth 3 times daily. Active potassium chloride (KLOR-CON) 20 mEq packet Take 20 mEq by mouth 2 times daily. Active Active Problems Problem Noted Date Diagnosed Date Basal cell carcinoma (BCC) of right upper eyelid 12/02/2021 Overview: Added automatically from request for surgery [id number] Surgical History Surgery Date Site/Laterality Comments CATARACT REMOVAL WITH IMPLANT INTRAOCULAR LENS PROSTHESIS INSERTION CATARACT REMOVAL CAPSULOTOMY EYE SURGERY JOINT REPLACEMENT MOHS SURGERY 12/10/2021 Right medial canthus, large BCC MOHS SURGERY 04/15/2022 R medial cheek, L chin, BCC x 2 Medical History Medical History Date Comments Cataract Other states following surgery of eye and adnexa Thyroid disease Hypertension Basal cell carcinoma (BCC) of right upper eyelid 12/02/2021 Family History Medical History Relation Comments Diabetes Father Hypertension Father Arthritis Neg Hx Blindness Neg Hx Cancer Neg Hx Cataract Neg Hx Glaucoma Neg Hx Keratoconus Neg Hx Kidney Disease Neg Hx Macular Degeneration Neg Hx Retinal Detachment Neg Hx Retinitis Pigmentosa Neg Hx Stroke Neg Hx Thyroid Disease Neg Hx Relation Status Comments Father Social History Tobacco Use Types Packs/Day Years Used Date Smoking Tobacco: Former Smokeless Tobacco: Never Tobacco Cessation:Counseling Given: Not Answered Alcohol Use Standard Drinks/Week Comments Not Currently 0 (1 standard drink = 0.6 oz pur e alcohol) Interpersonal Safety Answer Date Record ed Physically Hurt Never 01/17/2020 Verbally Threaten Not on file 01/17/2020 Sex and Gender Information Value Date Recorded Sex Assigned at Not on file Gender Identity Female 12/03/2021 11:01 EDT Sexual Orientation Not on file Obstetrics History Last Filed Vital Signs Vital Sign Reading Time Taken Comments Blood Pressure 128/70 04/15/2022 1043 EST Pulse 87 04/15/2022 1043 EST Temperature 37 ??C (98.6 ??F) 12/10/2021 1540 EDT Respiratory Rate 20 12/10/2021 1540 EDT Oxygen Saturation 94% 12/10/2021 1540 EDT Inhaled Oxygen Concentration - - Weight 67.7 kg (149 lb 4 oz) 12/10/2021 1142 EDT Height 160 cm (5' 3) 12/10/2021 1142 EDT Body Mass Index 26.44 12/10/2021 1142 EDT Plan of Treatment Upcoming Encounters Date Type Department Care Team (Late st Contact Info) Description 10/27/2023 12:50 EDT Office Visit [facility] [address] [place] [address] Nikita Kumari PA-C [address] [place] [address], [address] [place] [id number] Health Maintenance Due Date Last Done Comments RSV Immunization ( o r 60+ Years) (1 - 1-dose 60+ series) 2001 Fall Risk Screening 2006 COVID-19 Vaccine (2022-24 season) 2022 Care Teams Pond Scaler Relationship Specialty Start Date End Date Jinny Camacho NP [address] [place] [id number] PCP - General Family Medicine - Primary Care 12/03/21
--- OUTSIDE RECORDS SUMMARY | 2023-09-06 10:19 | XMS_ITS | Encounter Summary ---
Author Organization [facility] Address [facility] [place] [address] Care Team Providers Care Sales Solutions Representative Name Role Phone Jinny Camacho ZAINAB Primary Care Provider [phone] Encounter Details Date Type Department Care Team (Late st Contact Info) Description 09/12/2022 [place]phone [place] [address] Gurdeep Duenas MD [facility] [place] [address] Social History Tobacco Use Types Packs/Day Years Used Date Smoking Tobacco: Former Smokeless Tobacco: Never Comments:quit in her 50 's Sex and Gender Information Value Date Recorded Sex Assigned at Not on file Gender Identity Not on file Sexual Orientation Not on file documented as of this encounter Miscellaneous Notes * Telephone Encounter - Gurdeep Duenas MD - 09/12/2022 4:26 PM EDT Called patient to discuss blood test results - TSH remains low but free T4 is decreasing. TSH may be lagging. Suggest she remain on current dose of Methimazole and will repeat her levels in 2-3 months. TSI is very high, which could explain worsening eye disease. Gurdeep Duenas MD Advertising Sales Assistantroadway engineer Endocrinology Section [facility] documented in this encounter Plan of Treatment Not on file documented as of this encounter Visit Diagnoses Not on filedocumented in this encounter Care Teams Sales Solutions Representative Relationship Specialty Start Date End Date Jinny Camacho APRN [address] [place] [address] PCP - General Internal Medicine 10/04/19 documented as of this encounter
--- OUTSIDE RECORDS SUMMARY | 2023-09-06 10:19 | XMS_ITS | Encounter Summary ---
Author Organization [facility] [place] [address] Care Team Providers Care Six Sigma Black Trainer Name Role Phone Jinny Camacho APRN Primary Care Provider [phone] Encounter Details Date Type Department Care Team (Latest Contact Info) Description 09/09/2022 Travel Social History Tobacco Use Types Packs/Day Years Used Date Smoking Tobacco: Former Smokeless Tobacco: Never Comments:quit in her 50 's Sex and Gender Information Value Date Recorded Sex Assigned at Not on file Gender Identity Not on file Sexual Orientation Not on file documented as of this encounter Plan of Treatment Not on file documented as of this encounter Visit Diagnoses Not on filedocumented in this encounter Care Teams Six Sigma Black Trainer Relationship Specialty Start Date End Date Jinny Camacho APRN [address] [place] [address] PCP - General Internal Medicine 10/04/19 documented as of this encounter
--- OUTSIDE RECORDS SUMMARY | 2023-09-06 10:19 | XMS_ITS | Encounter Summary ---
Author Organization [facility] [place] [address] Care Team Providers Care Tile Setter Name Role Phone Jinny Camacho APRN Primary Care Provider [phone] Encounter Details Date Type Department Care Team (Latest Contact Info) Description 03/10/2022 Travel Social History Tobacco Use Types Packs/Day [...] on filedocumented in this encounter Care Teams Tile Setter Relationship Specialty Start Date End Date Jinny Camacho APRN [address] [place] [address] PCP - General Internal Medicine 10/04/19 documented as of this encounter
--- OUTSIDE RECORDS SUMMARY | 2023-09-06 10:19 | XMS_ITS | Encounter Summary ---
Author Organization [facility] Address [address] [place] [address] Care Team Providers Care Slip Caster Name Role Phone JaniceJinny DIRECT SALES REPRESENTATIVE Primary Care Provider [phone] Reason for Visit * Reason Comments Basal Cell Carcinoma Right cheek * Office Procedure (Routine) - Authorization Not Required Specialty Diagnoses / Procedures [facility]erred To Contact Diagnoses BCC (basal cell carcinoma of skin) M1 BCC Procedures IL ADJ TISS XFER LID,NOS,EAR <10 SQCM [place] ADJ TISS XFER ANY AREA,30.1-60 SQCM IL SPLIT GRFT,HEAD,FAC,HAND,FEET <100 SQCM IL SPLIT GRFT,HEAD,FAC,HAND,FEET EA 100 SQCM IL FULL THICK GRFT NOS,EAR,LID <20 SQCM IL FULL THICK GRFT NOS,EAR,LID ADD 20SQ IL FORM SKIN PEDICLE FLAP LID,EAR,NOSE IL COMPOSITE SKIN GRAFT IL MOHS, 1 STAGE, HEAD/NECK/HAND/FEET/GENTI AL MOHS [facility] [address] [place] [id number] Dodie Patricia MD [address] [facility], [address] [place] [address] Referral ID Status Reason Start Date Expiration Date Visits Requested Visits Authorized [id number] Authorization Not Required 01/23/2022 1 1 Encounter Details Date Type Department Care Team (Late st Contact Info) Description 04/15/2022 10:30 EST Office Visit [facility] Dermatology 5th Floor [address] [address] Dodie Patricia MD [address] [place] [address], [address] [place] [address] Basal cell carcinoma (BCC) of chin (Primary Dx); Basal cell carcinoma (BCC) of right cheek; Neoplasm of uncertain behavior of skin Social History Tobacco Use Types Packs/Day Years Used Date Smoking Tobacco: Former Smokeless Tobacco: Never Alcohol Use Standard Drinks/Week Comments Not Currently 0 (1 standard drink = 0.6 oz pur e alcohol) Interpersonal Safety Answer Date Record ed Physically Hurt Never 01/17/2020 Verbally Threaten Not on file 01/17/2020 Sex and Gender Information Value Date Recorded Sex Assigned at Not on file Gender Identity Female 12/03/2021 11:01 EDT Sexual Orientation Not on file documented as of this encounter Last Filed Vital Signs Vital Sign Reading Time Taken Comments Blood Pressure 128/70 04/15/2022 1043 EST Pulse 87 04/15/2022 1043 EST Temperature - - Respiratory Rate - - Oxygen Saturation - - Inhaled Oxygen Concentration - - Weight - - Height - - Body Mass Index - - documented in this encounter Functional Status Functional Status Response Date of Assess ment Because of a physical, menta l, or emotional condition, does this person have difficulty doing errands alone such as visiting a doctor's office or shopping? No 12/10/2021 Cognitive Status Response Date of Assessm ent Because of a physical, menta l, or emotional condition, does this person have serious difficulty concentrating, remembering, or making decisions? No 12/10/2021 documented as of this encounter Patient Instructions * Patient Instructions* Franchesca Leroy MA - 04/15/2022 10:30 EST CARE FOLLOWING YOUR SKIN SURGERY- Sutured Wound Care for the first week ACTIVITY: No strenuous activity for 48 hours (this includes gardening or heavy lifting of any kind). Resume moderate activity in 48 hours. Walking slowly/strolling is an excellent light activity during the first week. Running and weightlifting are not. If your surgery was on your head or neck, elevate your head with pillows when you lie down for the first few nights (consider sleeping in a recliner if you have one), and don't bend over to fish bait picker objects or tie shoes for a few days if you can avoid it. Do not drink alcoholic beverages for 48 hours. DISCOMFORT: Do not use aspirin or products containing aspirin for 3 days after your surgery, unless approved byyour doctor. To relieve discomfort, you may take acetaminophen (for example, TylenolTM or Extra-Strength TylenolTM) as directed. It actually works very well for this kind of pain. And, if you combine this with ibuprofen (AdviTM) the two together are often very helpful in relieving pain (as helpful as VicodinTM in one study). If your doctor has given you a prescription for Vicodin, Tylenol with codeine, DilaudidTM or PercocetTM, or a different medicine, use as directed. After the first night (when the numbing medicine wears off and it hurts the most), pain should get slowly better, not worse. A severe increase in pain may indicate a problem. Call the office or Dr. Patricia directly if after hours if this occurs. Numbness, itching and sensitivity to temperature changes can occur after surgery and may take up to18 months to normalize. BLEEDING, BRUISING, AND SWELLING: It is normal for your wound to ooze a small amount of blood and stain the dressing. Expect bruising and swelling in the area of your surgery to be the most noticeable 48 to 72 hours after surgery. Bruising and swelling usually begin to lessen 4 to 5 days after surgery. It should start to fade in 10-14 days. You may minimize swelling by sleeping with your head elevated on several pillows. If the swelling worsens rapidly or becomes increasingly tender, contact your doctor. If your wound bleeds enough that the blood heavily soaks through to the outside of your bandage, dothe following: Leave the bandage in place. Use tightly rolled up gauze or a cloth to apply direct pressure over the bandage for 20 minutes (nopeeking). If there is substantial bleeding that does not resolve with pressure, please call the office or proceed to the nearest emergency room or call 911 for assistance. Use additional gauze and tape to maintain pressure once the bleeding has stopped. INFECTION: It is normal for your wound to be slightly sore and pink. If the area becomes increasingly tender, red or warm, or if you develop fever and chills, then contact your physician. DIETARY/SMOKING RESTRICTIONS: If your surgery involved your lips or mouth, avoid hot liquids and foods for the first two to threehours after surgery. Eat soft foods for the first 24 hours and be careful when brushing your teeth (use a child's toothbrush to avoid stretching your mouth). Take small bites and try to minimize opening your mouth widely for 3 weeks. Do not smoke for 3 weeks; smoking can be very harmful to wound healing. DAILY WOUND CARE: Always wash your hands with soap and water before touching the bandage. Keep the white bulky pressure bandage in place for at least 48 hours after surgery. If the bandage becomes blood tinged or loose, reinforce it with gauze & tape. (See above for management of bleeding). GENTLY remove the bulky white pressure bandage in 48 hours, being careful not to disturb the underlying stitches. Wash daily with warm clean water and soap (out of a dispenser, avoid bar soap), pat dry and apply athin coat of petrolatum/Vaseline. Cover with a non-stick bandage and reapeat daily until surface stitches have dissolved (usually by 7-10 days). WHEN TO CONTACT YOUR PHYSICAN: Your wound continues to bleed briskly through the bandage after you have reinforced it and applied firm pressure for 20 minutes. Acetaminophen and ibuprofen have not relieved your discomfort. Your wound becomes increasingly sore, tender, red, or warm. Your surgery site rapidly swells. CONTACT INFORMATION: To reach the shipping lead person physician: During office hours: 8:00 am - 5:00 PM Thursday through Thursday Call: [phone] Ask to speak with a surgery nurse AFTER HOURS/WEEKENDS/HOLIDAYS: First call Dr. Dodie Patricia's cell phone: [phone]; if unable to reach Dr. Patricia, Call [phone] for the MOHS surgeon shipping lead person. LONG-TERM WOUND CARE INSTRUCTIONS *Once the bandages are removed, the scar will be red and firm (especially in the lip/chin area). This is normal and will fade in time. It might take 6-12 months. *Massaging the area will help the scar soften and fade quicker. If the scar feels lumpy or firm, begin to massage the area 6 weeks after you remove the steri strips (7 weeks after surgery). To massage apply pressure directly and firmly over the scar with the fingertips and move lengthwise along thescar. Massage the area for a few minutes 10 times a day for 2 weeks. *About 6-8 weeks after surgery it is not uncommon to see tender 'pimple-like' bumps along the scar.This is normal as the scar continues to mature and the stitches underneath the skin begin to dissolve. Do not pick or squeeze-- this will resolve on its own. Should one break open producing a small amount of drainage, apply Vaseline/white petrolatum ointment a few times a day until it is completelyhealed. *Numbness in the surgical area is expected. It might take 12-18 months for it to return to normal. You may experience tchiness, tingling and occasional sharp pains until then. These feelings are normal and will subside once the nerves have completely healed. *For cosmetic coverage a green-tinted concealer can be used to counteract redness during the initial first few months, once surface stitches have dissolved (usually by 7-10 days). Try Clinique Redness Solutions or Eucerin Redness Relief. Keep it protected from the sun for the first few months to imp rove the color of the scar. documented in this encounter Progress Notes * Cy Alexander PA-C - 04/15/2022 1030 EST Images from the original note were not included. MOHS SURGERY POST-OP SUMMARY Caitlin Marte is a 81 y.o. year old female who underwent Mohs surgery today 04/15/2022. The following is a summary of the operative findings: Lesion 1 Basal cell carcinoma (BCC) Location right cheek Size Preop (cm) 1.0 cm x 0.8 cm Size Postop (cm) 1.4 cm x 1.0 cm Stages 2 Depth of Excision subcutis Repair complex linear repair Lesion 2 Basal cell carcinoma (BCC) Location left chin Size Preop (cm) 0.9 cm x 0.7 cm Size Postop (cm) 1.4 cm x 1.0 cm Stages 1 Depth of Excision subcutis Repair intermediate linear repair Ms. Marte was discharged from the operative suite in good condition. She was carefully instructedin postoperative wound care both verbally and in writing. All sutures used were absorbable, so the patient does not need to return for suture removal. The patient will return for follow up as needed. Note: FROZEN SECTION BIOPSY: Lesion(s) # 2 was/were newly identified and confirmed to be a basal cell carcinoma (BCC) by frozen section biopsy today. Please see separate frozen section biopsy pathology report from today's visit for details. Dodie Patricia MD Dermatology & Mohs Surgery Associate Radio Interference Investigator, Mohs Surgery Fellowship sheet metal shop supervisor, Dermatology Division [facility] 04/15/2022 15:38 Risk factors: Pacemaker/ICD: none Anticoagulants: none Total joint replacements/valves: none Allergies: Patient has No Known Allergies. Immunosuppression: none Smoking status: reports that she has quit smoking. She has never used smokeless tobacco MOHS OPERATIVE REPORT Patient Name: Caitlin Marte Date of Service: April 15, 2022 Surgeon and Pathologist: Dodie Patricia MD Client Support Associate: Domingo Hawley MD Case #: [id number] Mohs AUC Score: 8 (APPROPRIATE) Preoperative Diagnosis: Basal cell carcinoma (BCC) Preoperative Procedure: Mohs micrographic surgery Location of Lesion: right cheek Preoperative Lesion Size: 1.0 cm x 0.8 cm Preoperative Procedure: Mohs microscopically-controlled fresh tissue excision Indications: The patient presents with a skin cancer complicated by the following clinical features: location critical for tissue conservation and poorly defined clinical borders. Because of the histologic and clinical nature of the lesion, as well as its location, the need to achieve the highest cure rate while providing maximum tissue preservation warranted tumor extirpation via microscopically-controlled excision using the Mohs fresh tissue technique. Alternate therapeutic options were discussed prior to surgery. After informed consent was obtained and appropriate instruction was provided,the patient underwent tumor extirpation by the Mohs fresh tissue technique as follows: PROCEDURE - INITIAL STAGE: Patient position: supine Anesthesia: 1% lidocaine with epinephrine 1:100,000 local infiltration Prep: Chlorhexidine Patient Vitals for the past 24 hrs: BP Pulse 04/15/22 1043 128/70 87 The patient was brought to the operative suite. The lesion was identified and was prepped in a sterile fashion. The area was infiltrated with lidocaine/epinephrine to achieve complete anesthesia and to augment hemostasis. The Mohs procedure was then carried out by Dr. Patricia as follows: An initial beveled excision was performed through the epidermis and dermis with a #15 scalpel blade. A hashwas created in the specimen and within the adjacent epidermis for marking purposes. The Mohs specimen was then excised in a sharp manner, and carefully placed in proper orientation on the surgical tray. Hemostasis of the operative wound was obtained with careful spot electrocoagulation. A sterile non-adherent dressing was applied to the operative wound. The Mohs tissue specimen was carefully transferred to the lab where the tissue was divided, and color inked for orientation. These specimens were mapped and then handed personally by the doctor to the plastic surgery technician for frozen sectioning. The tissue was embedded so that the deep and surface margins layin the same plane, and sections were made through this plane. Once the slide preparation was complete Dr. Patricia performed histologic evaluation and interpretation of all sections. A summary of the findings may be found below. Stage 1 findings: Wound depth subcutis Sections created 2 Number of sections containing tumor 1 Histologic findings NODULAR BASAL CELL CARCINOMA -- Emanating from the epidermis and infiltrating the dermis are irregularly shaped islands of basaloid keratinocytes. The cells have scant cytoplasm and round dark nuclei. Mitotic figures and apoptotic bodies are evident. The nuclei at the periphery of the islands have a palisaded arrangement. The islands are associated with a fibromyxoid stroma and there is cleft formation between some of the islands and stroma. ADDITIONAL STAGES: Stage 2 findings: Wound depth subcutis Sections created 2 Number of sections containing tumor 0 Histologic findings SUN DAMAGED SKIN: Sections consist of a portion of skin, including epidermis, dermis, and subcutis. The epidermis is unremarkable. There is chronic patchy inflammation and solar elastosis present within the dermis. There is no evidence of malignancy at the surgical margins. With the patient clear of microscopic tumor, surgery was considered complete. The wound was repaired with an COMPLEX LINEAR closure as detailed in the separate linear repair procedure note below. Postoperative Wound Size: 1.4 cm x 1.0 cm Final Diagnosis: Basal cell carcinoma (BCC) Final Procedure: Mohs micrographic surgery Blood Loss: Minimal Operative Time: 15 minutes Complications: None Note: None The fellow (Domingo Hawley MD) performed the procedure. The attending physician was personally presentand immediately available throughout. COMPLEX REPAIR PATIENT INFORMATION: Caitlin Marte SURGEON: Dodie Patricia MD LABORER SAWMILL: Domingo Hawley MD and Jonn Nolasco MD PREOPERATIVE DIAGNOSIS: Defect following microscopically controlled excision of basal cell carcinoma (BCC) PREOPERATIVE PROCEDURE: Complex Linear Closure LOCATION of WOUND: right cheek WOUND DIMENSIONS: 1.4 cm x 1.0 cm INDICATIONS: The patient presents with an operative wound following tumor removal. After careful consideration and discussion of all repair options, it was determined that, given the location and nature of the defect, an intermediate linear layered closure offered the best chance for preservation of normal anatomic and functional relationships. Alternate options were discussed and the patient was encouraged to ask questions, which, I believe, were answered appropriately. Informed consent was obtained in writing. After informed consent was obtained and appropriate instruction was provided, the patient underwent operative repair as follows. PROCEDURE: Patient position: supine Anesthesia: 1% lidocaine with epinephrine 1:100,000 local infiltration Prep: Chlorhexidine The Mohs operative defect was identified, and the area was infiltrated with lidocaine/epinephrine to achieve complete anesthesia and to augment hemostasis. The area was prepped in the usual sterile and was draped with sterile drapes. A linear closure was designed with care to place the operative repair within functional and cosmetic lines to minimize the postoperative distortion of normal tissues. The wound edges were prepared using a # 15 scalpel blade to precisely delineate the operative repair and were then undermined with combined blunt and, as needed, sharp dissection taking great care to avoid functionally important vessels and nerves. Wide undermining the width of the defect along one entire length of the scar (laterally in this case) was carried out at the level of the subcutaneous fat. Hemostasis of the operative wound was obtained with careful spot electrocoagulation, and ligature as indicated. The wound edges were then approximated using 5.0 Vicryl (polyglactin 910) buried interrupted sutures at the level of the subcutis and dermis. The epidermis was then approximated using 6.0 Fast absorbing plain gut. The final wound length was 3.2 cm. The wound edges were cleansed with peroxide and dressed with petrolatum, a non-adherent gauze pad and Hypafix?? tape. Verbal and written wound care instructions were given. The patient tolerated the procedure well and left the operating suite in excellent condition. FINAL DIAGNOSIS: Defect following microscopically controlled excision FINAL PROCEDURE: complex linear closure BLOOD LOSS: minimal OPERATIVE TIME: 45 minutes COMPLICATIONS: None NOTE: None The fellow (Domingo Hawley MD) performed the procedure. The attending physician was personally presentand immediately available throughout. SHAVE BIOPSY PROCEDURE NOTE PATIENT INFORMATION: Caitlin Marte [id number] DATE OF PROCEDURE: 04/15/2022 SURGEON: Dodie Patricia MD LABORER SAWMILL: Domingo Hawley MD DIAGNOSIS: Neoplasm of uncertain etiology LOCATION: left chin The indication, risks, benefits and alternatives to this procedure were discussed in detail with the patient and all questions were answered. Informed consent was obtained in writing. The patient was placed in the supine position on the operating table. Using aseptic technique with alcohol prep, the lesion(s) was/were locally anesthetized with 1% lidocaine with epinephrine. The specimen(s) was/were removed by tangential shave using a dermablade. Hemostasis was achieved with spot electrocoagulation. A sterile dressing was applied over petrolatum ointment. The specimen(s) was/were submitted for histopathologic evaluation by frozen section. Note: None The attending physician performed the procedure. Biopsy of the lesion for frozen section analysis was recommended and performed as per the separate procedure note(s). A diagnosis of basal cell carcinoma (BCC) was confirmed and Mohs surgery was recommended and performed for definitive treatment. MOHS OPERATIVE REPORT Patient Name: Caitlin Marte Date of Service: April 15, 2022 Surgeon and Pathologist: Dodie Patricia MD Client Support Associate: Domingo Hawley MD Case #: [id number] Mohs AUC Score: 8 (APPROPRIATE) Preoperative Diagnosis: Basal cell carcinoma (BCC) Preoperative Procedure: Mohs micrographic surgery Location of Lesion: left chin Preoperative Lesion Size: 0.9 cm x 0.7 cm Preoperative Procedure: Mohs microscopically-controlled fresh tissue excision Indications: The patient presents with a skin cancer complicated by the following clinical features: location critical for tissue conservation. Because of the histologic and clinical nature of the lesion, as well as its location, the need to achieve the highest cure rate while providing maximum tissue preservation warranted tumor extirpation via microscopically-controlled excision using the Mohs fresh tissue technique. Alternate therapeutic options were discussed prior to surgery. After informed consent was obtained and appropriate instruction was provided, the patient underwent tumor extirpation by the Mohs fresh tissue technique as follows: PROCEDURE - INITIAL STAGE: Patient position: supine Anesthesia: 1% lidocaine with epinephrine 1:100,000 local infiltration Prep: Chlorhexidine Patient Vitals for the past 24 hrs: BP Pulse 04/15/22 1043 128/70 87 The patient was brought to the operative suite. The lesion was identified and was prepped in a sterile fashion. The area was infiltrated with lidocaine/epinephrine to achieve complete anesthesia and to augment hemostasis. The Mohs procedure was then carried out by Dr. Patricia as follows: An initial beveled excision was performed through the epidermis and dermis with a #15 scalpel blade. A hashwas created in the specimen and within the adjacent epidermis for marking purposes. The Mohs specimen was then excised in a sharp manner, and carefully placed in proper orientation on the surgical tray. Hemostasis of the operative wound was obtained with careful spot electrocoagulation. A sterile non-adherent dressing was applied to the operative wound. The Mohs tissue specimen was carefully transferred to the lab where the tissue was divided, and color inked for orientation. These specimens were mapped and then handed personally by the doctor to the plastic surgery technician for frozen sectioning. The tissue was embedded so that the deep and surface margins layin the same plane, and sections were made through this plane. Once the slide preparation was complete Dr. Patricia performed histologic evaluation and interpretation of all sections. A summary of the findings may be found below. Stage 1 findings: Wound depth subcutis Sections created 2 Number of sections containing tumor 0 Histologic findings SUN DAMAGED SKIN: Sections consist of a portion of skin, including epidermis, dermis, and subcutis. The epidermis is unremarkable. There is chronic patchy inflammation and solar elastosis present within the dermis. There is no evidence of malignancy at the surgical margins. ADDITIONAL STAGES: None With the patient clear of microscopic tumor, surgery was considered complete. The wound was repaired with an INTERMEDIATE LINEAR closure as detailed in the separate linear repair procedure note below. Postoperative Wound Size: 1.4 cm x 1.0 cm Final Diagnosis: Basal cell carcinoma (BCC) Final Procedure: Mohs micrographic surgery Blood Loss: Minimal Operative Time: 45 minutes Complications: None Note: None The fellow (Domingo Hawley MD) performed the procedure. The attending physician was personally presentand immediately available throughout. INTERMEDIATE REPAIR PATIENT INFORMATION: Caitlin Edward [facility] SURGEON: Dodie Patricia MD LABORER SAWMILL: Domingo Hawley MD PREOPERATIVE DIAGNOSIS: Defect following microscopically controlled excision of basal cell carcinoma (BCC) PREOPERATIVE PROCEDURE: Intermediate Linear Closure LOCATION of WOUND: left chin WOUND DIMENSIONS: 1.4 cm x 1.0 cm INDICATIONS: The patient presents with an operative wound following tumor removal. After careful consideration and discussion of all repair options, it was determined that, given the location and nature of the defect, an intermediate linear layered closure offered the best chance for preservation of normal anatomic and functional relationships. Alternate options were discussed and the patient was encouraged to ask questions, which, I believe, were answered appropriately. Informed consent was obtained in writing. After informed consent was obtained and appropriate instruction was provided, the patient underwent operative repair as follows. PROCEDURE: Patient position: supine Anesthesia: 1% lidocaine with epinephrine 1:100,000 local infiltration Prep: Chlorhexidine The Mohs operative defect was identified, and the area was infiltrated with lidocaine/epinephrine to achieve complete anesthesia and to augment hemostasis. The area was prepped in the usual sterile and was draped with sterile drapes. A linear closure was designed with care to place the operative repair within functional and cosmetic lines to minimize the postoperative distortion of normal tissues. The wound edges were prepared using a # 15 scalpel blade to precisely delineate the operative repair and were then undermined with combined blunt and, as needed, sharp dissection taking great care to avoid functionally important vessels and nerves. Undermining was carried out at the level of the subcutaneous fat Hemostasis of the operative wound was obtained with careful spot electrocoagulation,and ligature as indicated. The wound edges were then approximated using 5.0 Vicryl (polyglactin 910) buried interrupted sutures at the level of the subcutis and dermis. The epidermis was then approximated using 6.0 Fast absorbing plain gut. The final wound length was 3.2 cm. The wound edges were cleansed with peroxide and dressed with petrolatum, a non-adherent gauze pad and Hypafix?? tape. Verbal and written wound care instructions were given. The patient tolerated the procedure well and left the operating suite in excellent condition. FINAL DIAGNOSIS: Defect following microscopically controlled excision FINAL PROCEDURE: Intermediate linear closure BLOOD LOSS: minimal OPERATIVE TIME: 45 minutes COMPLICATIONS: None NOTE: None The fellow (Domingo Hawley MD) performed the procedure. The attending physician was personally presentand immediately available throughout. Attestation statement: I performed or was present during the nick or critical portions of the visit and participated in the management of the patient. I agree with the findings and plan of care documented in the resident's/fellow's note. Dodie Patricia MD Dermatology & Mohs Surgery Associate Radio Interference Investigator, Mohs Surgery Fellowship sheet metal shop supervisor, Dermatology Division [facility] 04/15/2022 15:39 documented in this encounter Plan of Treatment Upcoming Encounters Date Type Department Care Team (Late st Contact Info) Description 10/27/2023 12:50 EDT Office Visit [facility] Dermatology [address] [id number] Nikita Kumari PA-C [address] [place] [address], [address] [place] [phone] documented as of this encounter Procedures Procedure Name Priority Date/Time Associated Diagnosis Comments PROCEDURE REPORTS - SCANNED 04/18/2022 7:04 EST documented in this encounter Results * PROCEDURE REPORTS - SCANNED (04/18/2022 7:04 EST) 04/18/2022 7:04 EST Scan 2 Rock Room Worker PROCEDURE/MINOR CHIQUITA GICAL ORDERABLES documented in this encounter Visit Diagnoses Diagnosis Basal cell carcinoma (BCC) of chin- Primary Basal cell carcinoma (BCC) of right cheek Neoplasm of uncertain behavior of skin documented in this encounter Care Teams Slip Caster Relationship Specialty Start Date End Date Jinny Camacho NP [address] [place] [address] PCP - General Family Medicine - Primary Care 12/03/21 documented as of this encounter
--- OUTSIDE RECORDS SUMMARY | 2023-09-06 10:19 | XMS_ITS | Encounter Summary ---
Author Organization [facility] Address [facility] [place] [address] Care Team Providers Care Fireproof Door Maker Name Role Phone Jinny Camacho ZAINAB Primary Care Provider [phone] Encounter Details Date Type Department Care Team (Late st Contact Info) Description 09/09/2022 2:00 PM EDT Office [place] [address] Gurdeep Duenas MD [facility] [place] [address] Graves disease; Graves' orbitopathy Social History Tobacco Use Types Packs/Day Years Used Date Smoking Tobacco: Former Smokeless Tobacco: Never Tobacco Cessation:Counseling Given: Not Answered Comments:quit in her 50 's Sex and Gender Information Value Date Recorded Sex Assigned at Not on file Gender Identity Not on file Sexual Orientation Not on file documented as of this encounter Last Filed Vital Signs Vital Sign Reading Time Taken Comments Blood Pressure 148/79 09/09/2022 1:52 PM EDT Pulse 83 09/09/2022 1:52 PM EDT Temperature 37 ??C (98.6 ??F) 09/09/2022 1:52 PM EDT Respiratory Rate - - Oxygen Saturation 97% 09/09/2022 1:52 PM EDT Inhaled Oxygen Concentration - - Weight 66.2 kg (146 lb) 09/09/2022 1:52 PM EDT Height 162.6 cm (5' 4) 09/09/2022 1:52 PM EDT Body Mass Index 25.06 09/09/2022 1:52 PM EDT documented in this encounter Progress Notes * Gurdeep Duenas MD - 09/09/2022 2:00 PM EDT [facility] Endocr[facility]ology [facility] Follow up Patient Chief complaint: hyperthyroidism 2/2 Graves Disease History: Caitlin Marte is a 82 y.o. female with significant PMH of HLD, CHF, Graves Disease, here for follow up of Graves Disease. She was originally seen by Dr. Pizano in 2019. Last visit was in 04/2021. Since last visit, she had skin cancer surgically removed last year around the right eye. She has also developed proptosis of the left eye about 1 month ago. Her PCP's office reached out to our office last month - it was noted at that time that her TSH was suppressed with a normal free T4. She has been having double vision in her right eye. Left eye tears frequently. After she was found to have a suppressed TSH, her dose of Methimazole was increased and it was suggested that she see optho. She is currently on Methimazole 15 mg daily - dose was increased about 1 month ago from 10 mg daily. Weight has been stable. No change in neck size. No neck pain, dysphagia, dysphonia. No chest pain, palpitations, abdominal pain, nausea, vomiting, diarrhea, constipation. No tremors. No heat or cold intolerance. Does not smoke cigarettes. 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 Past Medical History: Graves Disease HLD Depression [...] past 24 hrs: Temp Pulse BP SpO2 09/09/22 1352 37 ??C (98.6 ??F) 83 148/79 97 % Physical Exam: General: No acute distress, well appearing Head: atraumatic, normocephalic Eyes: EOMI, + left eye proptosis, no erythema Neck: supple, non-tender to palpation, no goiter noted Resp: breathing comfortably; chest expansion bilaterally Psych: AAO x 3; normal affect; memory intact Labs/Imagin08/12/2022: TSH 0.01 Free T4 1.18 11/2021: WBC 4.19 (low) Hb 11.2 Hct 34.5 AST 14 ALT 16 Alkaline phosphatase 141 Total bilirubin 0.6 Assessment and Plan: 82 year old woman with 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 Repeat TSH, free T4, and total T3 today withTSI. Will adjust dose of Methimazole as needed. Graves Orbitopathy: she has visible Graves Orbitopathy on exam which may be due to recent flare in Graves Disease with suppression of TSH. Check TSI. Recommend continued follow up with optho. Return visit in 2 months. 32 minutes total time spent seeing patient today, pre-charting/reviewing previous labs/office notes, placing orders and on documentation. Gurdeep Duenas MD Bull Gang Supervisorjacquard lace weaver Endocrinology Section [facility] documented in this encounter Plan of Treatment Not on file documented as of this encounter Procedures Procedure Name Priority Date/Time Associated Diagnosis Comments HC TSI Routine 09/09/2022 2:49 PM EDT Graves disease HEMOGRAM Routine 09/09/2022 2:49 PM EDT Graves disease DIFFERENTIAL, AUTOMATED Routine 09/09/2022 2:49 PM EDT Graves disease HC CBC,PLT & AUTO DIFF Routine 09/09/2022 2:49 PM EDT Graves disease HC TOTAL T3 Routine 09/09/2022 2:49 PM EDT Graves disease HC THYROID STIMULATING HORMONE, SERUM Routine 09/09/2022 2:49 PM EDT Graves disease HC FREE THYROXINE (T4) Routine 09/09/2022 2:49 PM EDT Graves disease documented in this encounter Results * (ABNORMAL) Differential, Automated (09/09/2022 2:49 PM EDT) Neutrophils % 45.4 % [facility] Neutr Abs (ANC) 3.86 1.70 - 6.10 x10(3)/mc L [facility] Lymphocytes % 41.3 % [facility] Lymphocytes Abs 3.5(H) 0.9 - 3.2 x10(3)/mc L [facility] Monocytes % 11.1 % [facility] Monocyte Abs 0.9 0.3 - 0.9 x10(3)/mc L [facility] Eosinophils % 1.5 % [facility] Eosinophils Abs 0.1 0.0 - 0.4 x10(3)/mc L [facility] Basophils % 0.6 % [facility] Basophils Abs 0.0 0.0 - 0.1 x10(3)/mc L [facility] Immature Gran % 0.10 % [facility] Comment: Immature granulocytes(IG's)percentage and absolute count will include metamyelocytes, myelocytes, and promyelocytes. Blood smears from CBCs yielding IG's will be scanned manually for concordance. If this scan disagrees with the automated IG or if promyelocytes are noted, a manual differential will be performed. Tg Gran Abs 0.01 0.00 - 0.04 x10(3)/ L [facility] Blood 09/09/2022 2:49 PM EDT 09/09/2022 3:08 PM EDT Narrative Resulting Agency Comment Spec In Lab Gurdeep Duenas MD HEMATOLOGY ORDERABLE S [facility] [place] [address] * Hemogram (09/09/2022 2:49 PM EDT) WBC 8.5 4.0 - 9.5 x10(3)/[facility] RBC 4.36 4.00 - 5.21 x10(6)/[facility] Hemoglobin 12.5 11.7 - 15.5 g/dL [facility] Hematocrit 38.7 35.7 - 45.8 % [facility] MCV 88.8 82.6 - 94.4 [facility] MCH 28.7 27.1 - 32.0 pg [facility] MCHC 32.3 31.7 - 35.0 g/dL [facility] Platelets 216 145 - 357 x10(3)/[facility] RDWSD 44.0 37.0 - 46.0 [facility] RDWCV 13.4 11.5 - 14.1 % [facility] MPV 9.7 7.6 - 12.9 [facility] nRBC % Auto 0.0 % [facility] nRBC Abs Auto 0.000 0.000 - 0.000 x10(3)/[facility] Blood 09/09/2022 2:49 PM EDT 09/09/2022 3:08 PM EDT Narrative Resulting Agency Comment Spec In Lab Gurdeep Duenas MD HEMATOLOGY ORDERABLE S Performing Organization Address [facility] Co de Phone Number [facility] [place] [address] * (ABNORMAL) Thyroid Stimulating Immunoglobulins (09/09/2022 2:49 PM EDT) TSI >40.00(H) <=0.55 IU/L [facility] Blood 09/09/2022 2:49 PM EDT 09/10/2022 7:20 AM EDT Narrative Resulting Agency Comment Spec In Lab Gurdeep Duenas MD IMMUNOLOGY ORDERABLE S Performing Organization Address [facility] Co de Phone Number [facility] [place] [address] * T3 Total (09/09/2022 2:49 PM EDT) T3, Total 153 80 - 200 ng/dL [facility] Blood 09/09/2022 2:49 PM EDT 09/09/2022 3:08 PM EDT Narrative Resulting Agency Comment Spec In Lab Gurdeep Duenas MD CHEMISTRY ORDERABLES Performing Organization Address [facility] Co de Phone Number [facility] [place] [address] * T4, free (09/09/2022 2:49 PM EDT) Free T4 0.97 0.93 - 1.70 ng/dL [facility] Comment: Reference Interval (ng/dL): Females: ??First Trimester: 0.97-1.68 ??Second Trimester: 0.77-1.51 ??Third Trimester: 0.77-1.49 Blood 09/09/2022 2:49 PM EDT 09/09/2022 3:08 PM EDT Narrative Resulting Agency Comment Spec In Lab Grudeep Duenas MD CHEMISTRY ORDERABLES Performing Organization Address [facility] Co de Phone Number [facility] [place] [address] * (ABNORMAL) TSH (09/09/2022 2:49 PM EDT) TSH 0.03(L) 0.27 - 4.20 mcIU/mL [facility] Comment: Reference Interval (mcIU/mL): Females: ??First Trimester: 0.23-3.88 ??Second Trimester: 0.22-3.90 ??Third Trimester: 0.44-4.66 Blood 09/09/2022 2:49 PM EDT 09/09/2022 3:08 PM EDT Narrative Resulting Agency Comment Spec In Lab Gurdeep Duenas MD CHEMISTRY ORDERABLES Performing Organization Address [facility] Co de Phone Number [facility] [place] [address] documented in this encounter Visit Diagnoses Diagnosis Graves disease Toxic diffuse goiter without mention of thyrotoxic crisis or storm Graves' orbitopathy Toxic diffuse goiter without mention of thyrotoxic crisis or storm documented in this encounter Care Teams Fireproof Door Maker Relationship Specialty Start Date End Date Jinny Camacho APRN [address] [place] [address] PCP - General Internal Medicine 10/04/19 documented as of this encounter
--- OUTSIDE RECORDS SUMMARY | 2023-09-06 10:19 | XMS_ITS | Clinical Summary ---
Author Organization [facility] [place] [address] Care Team Providers Care Universal Grinder Tool Name Role Phone Jinny Camacho ZAINAB Primary Care Provider [phone] Allergies Active Allergy Reactions Criticality Noted Date Comments Hydrocodone Bitartrate 03/10/2022 Penicillins 03/10/2022 Propoxyphene 03/10/2022 Sulfa (Sulfonamide Antibiotics) 02/23 Acetaminophen 03/10/2022 Medications Medication Sig Dispensed Refills Start Date End Date Status FLUoxetine (PROzac) 20 mg Capsule TAKE 1 CAPSULE BY MOUTH AT BEDTIME 07/10/2019 Active aspirin EC 81 mg Tablet, Delayed Release (E.C.) Take 81 mg by mouth daily. Active atorvastatin (Lipitor) 40 mg Tablet One tab 10/10/2019 Active carvediloL (Coreg) 3.125 mg Tablet TK 1 T PO BID 11/07/2019 Active furosemide (Lasix) 20 mg Tablet 10 mg. 11/07/2019 Active potassium chloride ER (K-Dur/Klor-Con) 20 mEq Tab Sust.Rel. Particle/Crystal TK 1 T PO D 11/07/2019 Active methIMAzole (Tapazole) 10 mg Tablet Take 1 tablet by mouth daily. 30 tablet 1 05/07/2021 Active Active Problems Problem Noted Date Diagnosed Date Basal cell carcinoma (BCC) of right upper eyelid 12/02/2021 Overview (03/10/2022): Added automatically from request for surgery [id number] Hyperthyroidism 11/24/2019 Social History Tobacco Use Types Packs/Day Years Used Date Smoking Tobacco: Former Smokeless Tobacco: Never Tobacco Cessation:Counseling Given: Not Answered Comments:quit in her 50 's Sex and Gender Information Value Date Recorded Sex Assigned at Not on file Gender Identity Not on file Sexual Orientation Not on file Last Filed Vital Signs Vital Sign Reading [...] Mass Index 24.37 11/11/2022 11:00 AM EDT Plan of Treatment Health Maintenance Due Date Last Done Comments Tdap adult 1960 Tetanus vaccine 1960 Zoster vaccine (1 of 2) 08/12/1991 Advance Directive 1996 Bone Density Scan 2006 Pneumoccocal Vaccine: 65+ (1 of 1 - PCV) 2006 Covid-19 Vaccine (1 - 2022- season) 2022 Influenza (Flu) vaccine (1 o f 1 - Influenza standard series) 10/25/2023 Care Teams Universal Grinder Tool Relationship Specialty Start Date End Date Jinny Camacho APRN [address] [place], [place] [id number] PCP - General Internal Medicine 10/04/19
--- OUTSIDE RECORDS SUMMARY | 2023-09-06 10:19 | XMS_ITS | Encounter Summary ---
Author Organization [facility] Address [facility] [place] [address] Care Team Providers Care Student Services Representative Name Role Phone Jinny Camacho ZAINAB Primary Care Provider [phone] Encounter Details Date Type Department Care Team (Late st Contact Info) Description 11/12/2022 Telephone [place] [address] Gurdeep Duensa MD [facility] [place] [address] Social History Tobacco Use Types Packs/Day Years Used Date Smoking Tobacco: Former Smokeless Tobacco: Never Comments:quit in her 50 's Sex and Gender Information Value Date Recorded Sex Assigned at Not on file Gender Identity Not on file Sexual Orientation Not on file documented as of this encounter Miscellaneous Notes * Telephone Encounter - Gurdeep Duenas MD - 11/12/2022 3:15 PM EDT Called to discuss blood test results - decrease Methimazole to 15 mg (1.5 tabs) three days a week and 10 mg (1 tab) on the other 4 days. Repeat labs in 3 months at [facility] - orders sent. Gurdeep Duenas MD Quality System Managerprint production manager Endocrinology Section [facility] documented in this encounter Plan of Treatment Not on file documented as of this encounter Visit Diagnoses Not on filedocumented in this encounter Care Teams Student Services Representative Relationship Specialty Start Date End Date Jinny Camacho, ZAINAB [address] [place] [address] PCP - General Internal Medicine 10/04/19 documented as of this encounter
--- OUTSIDE RECORDS SUMMARY | 2023-09-06 10:19 | XMS_ITS | Encounter Summary ---
Author Organization [facility] Address [address] [place] [address] Care Team Providers Care Professor Of Chemistry Name Role Phone Jinny Camacho Wagner TRADE MARK EXAMINER Primary Care Provider [phone] Reason for Visit * Reason Onset Date Comments Appointment Related 01/21/2022 Calling to ariella yeboah appointment with Dr. Whitley Elias in Ophthalmology January 23 at 10:30am. Encounter Details Date Type Department Care Team (Late st Contact Info) Description 01/21/2022 Telephone [facility] Ophthalmology - [address] [id number] Whitley Elias MD [address] [facility], [address] [place] [address] Appointment Related (Calling to cancel appointment with Dr. Whitley Elias in Ophthalmology January 23 at 10:30am. ) Social History Tobacco Use Types Packs/Day Years [...] on file documented as of this encounter Functional Status Functional Status Response [...] No 12/10/2021 documented as of this encounter Miscellaneous Notes * Telephone Encounter - Maximo Saals RN - 01/22/[address] Elias to review timeframe. Maximo Salas RN 01/22/2022 8:45 * Telephone Encounter - Margi Ram - 01/21/2022 1746 EST PAS Message:Caitlin Rosanna, : 42 calling to cancel appointment scheduled January 23 at 10:30am with Dr. Whitley Elias in Ophthalmology WP5. Patient would like the office to call her back to reschedule in February. Her phone number is [phone]. documented in this encounter Plan of Treatment Upcoming Encounters Date Type Department Care Team (Late st Contact Info) Description 10/27/2023 12:50 EDT Office Visit [facility] Dermatology 3rd Floor [address] [address] Nikita Kumari, PARogeC [address] [facility], [facility] [address] [place] [phone] documented as of this encounter Visit Diagnoses Not on filedocumented in this encounter Care Teams Professor Of Chemistry Relationship Specialty Start Date End Date Jinny Camacho NP [address] [place] [id number] PCP - General Family Medicine - Primary Care 12/03/21 documented as of this encounter
--- OUTSIDE RECORDS SUMMARY | 2023-09-06 10:19 | XMS_ITS | Encounter Summary ---
Author Organization [facility] Address [address] [place] [address] Care Team Providers Care Tire Building Supervisor Name Role Phone Unknown, Provider Primary Care Provider Reason for Visit * Reason Onset Date Comments Other 07/04/2021 Encounter Details Date Type Department Care Team (Late st Contact Info) Description 07/04/2021 Telephone [facility] Ophthalmology - [address] [id number] Whitley Elias MD [address] [place] [address], [address] [place] [phone] Other Social History Tobacco Use Types Packs/Day Years Used Date Smoking Tobacco: Former Smokeless Tobacco: Never Interpersonal Safety Answer Date Record ed Physically Hurt Never 01/17/2020 Verbally Threaten Not on file 01/17/2020 Sex and Gender Information Value Date Recorded Sex Assigned at Not on file Gender Identity Female 12/03/2021 11:01 EDT Sexual Orientation Not on file documented as of this encounter Miscellaneous Notes * Telephone Encounter - Erwin Hernandez - 07/04/2021 1437 EDT PT scheduled * Telephone Encounter - May Black - 07/04/2021 1008 EDT Caitlin is calling to schedule her procedure with Dr. Elias. Please call her back. documented in this encounter Plan of Treatment Upcoming Encounters Date Type Department Care Team (Late st Contact Info) Description 10/27/2023 12:50 EDT Office Visit [facility] Dermatology 3rd Floor [facility] [address] [place] [address] Nikita Kumari, PARogeC [address] [facility], [address] [place] [phone] documented as of this encounter Visit Diagnoses Not on filedocumented in this encounter Care Teams Tire Building Supervisor Relationship Specialty Start Date End Date Unknown, Provider, PCP - General 01/25/21 12/02/21 documented as of this encounter
--- OUTSIDE RECORDS SUMMARY | 2023-09-06 10:19 | XMS_ITS | Encounter Summary ---
Author Organization [facility] Address [address] [place] [address] Care Team Providers Care Bank And Savings Securities Trader Name Role Phone JaniceJinny RELEASE SPECIALIST Primary Care Provider [phone] Reason for Visit * Reason Comments Post-OP Follow Up Encounter Details Date Type Department Care Team (Late st Contact Info) Description 02/28/2022 14:30 EST Post-op Visit [facility] Ophthalmology - [address] [id number] Whitley Elias MD [address] [facility], Level [address] [place] [address] Basal cell carcinoma (BCC) of right upper eyelid (Primary Dx) Social History Tobacco Use Types Packs/Day Years [...] No 12/10/2021 documented as of this encounter Progress Notes * Whitley Elias MD - 02/28/2022 1430 EST Chief Complaint Patient presents with ??? Post-OP Follow Up Comments Follow up in 1 month for s/p repair of medial canthus Mohs defect w/ a rotational and advancement flap on 12/10/21 for BCC of RUL. Not currently taking any drops, using Vaseline on occasion for itching. Not painful. No tearing or discharge. Vision same, stable. HPI The patient is a 81 y.o. female Follow up in 1 month for s/p repair of medial canthus Mohs defect w/ a rotational and advancement flap on 12/10/21 for BCC of RUL. Not currently taking any drops, using Vaseline on occasion for itching. Not painful. No tearing or discharge. Vision same, stable. ROS Constitutional: NL ENT/Mouth NL Cardiovascular: High Blood Pressure, High Cholesterol Respiratory: NL Gastrointestinal: NL Genitourinary: NL Musculoskeletal: NL Integumentary: NL Neurologic: NL Psychiatric: NL Endocrine: NL Hematologic: NL Immunologic: NL Broadcast Operations Manager: Menopause Exposures: None Other: Attestation: Allergies include: Patient has no known allergies. Patient Active Problem List Diagnosis ??? Basal cell carcinoma (BCC) of right upper eyelid Outpatient Medications Marked as Taking for the 02/28/22 encounter (Post-op Visit) with Whitley Elias MD Medication Sig ??? atorvastatin (LIPITOR) 10 mg tablet Take 10 mg by mouth daily. ??? carvedilol (COREG) 3.125 mg tablet Take 3.125 mg by mouth 2 times daily with breakfast and dinner. ??? FLUoxetine (PROZAC) 10 mg capsule Take 10 mg by mouth daily. ??? furosemide (LASIX) 20 mg tablet Take 20 mg by mouth 2 times daily. ??? lisinopriL (PRINIVIL) 10 mg tablet Take 10 mg by mouth daily. ??? methIMAzole (TAPAZOLE) 10 mg tablet Take 10 mg by mouth 3 times daily. ??? potassium chloride (KLOR-CON) 20 mEq packet Take 20 mEq by mouth 2 times daily. Base Eye Exam Visual Acuity (Snellen - Linear) Right Left Dist sc 20/80 20/30 -2- Dist ph sc 20/50 -2 Tonometry (Applanation, 14:38) Right Left Pressure 12 15 Pupils Dark Light Right 2 2 Left 2 2 Neuro/Psych Oriented x3: Yes Mood/Affect: Normal Slit Lamp and Fundus Exam External Exam Right Left External scar over right nasal bridge causing some webbing Normal Slit Lamp Exam Right Left Lids/Lashes scar over right nasal bridge causing some webbing Normal Conjunctiva/Sclera White and quiet White and quiet Cornea Clear Clear Anterior Chamber Deep and quiet Deep and quiet Iris Round and reactive Round and reactive DIAGNOSTIC TESTS: IMPRESSION & PLAN: Encounter Diagnosis Name Primary? Basal cell carcinoma (BCC) of right upper eyelid Yes 1. Basal cell carcinoma (BCC) of right upper eyelid S/p excision and repair. Scar over right nasal bridge is causing some webbing. Recommend frequent scar massage. Will follow up in 6-9 months and if not improved, could consider revision then. Advised her to follow up with Dr. Patricia for the Mohs surgery for her right cheek. I have reviewed the patient's past medical, family, social and surgical history. I have also reviewed the patient's medications, allergies, and problem list. I performed my own HPI and have reviewed the tech's ROS as well. I personally completed this exam myself. Whitley Elias MD I am scribing for Whitley Elias MD while she personally performs the service. FRANCISCO Sutton, 03/02/2022, 19:58 The patient was instructed to call our office or go to emergency room if worse vision, worse symptoms, or new/other concerns arise. documented in this encounter Plan of Treatment Upcoming Encounters Date Type Department Care Team (Late st Contact Info) Description 10/27/2023 12:50 EDT Office Visit [facility] Dermatology 3[address] [address] Nikita Kumari, DANDRE [address] [place] [address], [facility] [address] [place] [address] documented as of this encounter Visit Diagnoses Diagnosis Basal cell carcinoma (BCC) of right upper eyelid- Primary documented in this encounter Eye Exam Visual Acuity (Snellen - Linear) Right eye Left eye Dist sc 20/80 20/30 -2- Dist ph sc 20/50 -2 Tonometry (Applanation, 14:38) Right eye Left eye Pressure 12 15 Pupils Dark Light Right eye 2 2 Left eye 2 2 Neuro/Psych Oriented x3: Yes Mood/Affect: Normal External Exam Right eye Left eye External scar over right nasal bridge cau sing some webbing Normal Slit Lamp Exam Right eye Left eye Lids/Lashes scar over right nasa l bridge causing some webbing Normal Conjunctiva/Sclera White and quiet White and bette et Cornea Clear Clear Anterior Chamber Deep and quiet Deep and quiet Iris Round and reactive Round and rusty ctive Care Teams Bank And Savings Securities Trader Relationship Specialty Start Date End Date Jinny Camacho, RELEASE SPECIALIST [address] [place] [id number] PCP - General Family Medicine - Primary Care 12/03/21 documented as of this encounter
--- OUTSIDE RECORDS SUMMARY | 2023-09-06 10:19 | XMS_ITS | Encounter Summary ---
Author Organization [facility] Address [facility] [place] [address] Care Team Providers Care Commissioning Engineer Name Role Phone Jinny Camacho APRN Primary Care Provider [phone] Encounter Details Date Type Department Care Team (Late st Contact Info) Description 01/21/2023 Telephone [place] [id number] Gurdeep Duenas MD [facility] [place] [address] Social History Tobacco Use Types Packs/Day Years Used Date Smoking Tobacco: Former Smokeless Tobacco: Never Comments:quit in her 50 's Sex and Gender Information Value Date Recorded Sex Assigned at Not on file Gender Identity Not on file Sexual Orientation Not on file documented as of this encounter Miscellaneous Notes * Telephone Encounter - Gurdeep Duenas MD - 01/21/2023 3:11 PM EST Called twice to discuss blood test results, unable to reach. Mailed letter with results with instructions to adjust dose of Methimazole. Gurdeep Duenas MD Accountant Systemsbusiness strategy manager Endocrinology Section [facility] documented in this encounter Plan of Treatment Not on file documented as of this encounter Visit Diagnoses Not on filedocumented in this encounter Care Teams Commissioning Engineer Relationship Specialty Start Date End Date Jinny Camacho APRN [address] [place] [address] PCP - General Internal Medicine 10/04/19 documented as of this encounter
--- OUTSIDE RECORDS SUMMARY | 2023-09-06 10:19 | XMS_ITS | Encounter Summary ---
Author Organization [facility] Address [facility] [place] [address] Care Team Providers Care Relay Tester Name Role Phone Jinny Camacho Wagner LAMB Primary Care Provider [phone] Reason for Referral * Diagnostic Test (Routine) - Closed Specialty Diagnoses / Procedures Referred By Zoya juarez Referred To Contact Diagnoses Bilateral carotid artery stenosis Procedures Carotid Duplex, Bilateral Anjali Martino APRN [facility] [place] [address] [facility] [address] [place] [address] Referral ID Status Reason Start Date Expiration Date V isits Requested Visits Authorized [id number] Closed Specialty Service Requested 01/24/2022 01/24/2023 1 1 Encounter Details Date Type Department Care Team (Late st Contact Info) Description 01/24/2022 Orders Only [place] [phone] Anjali Martino APRN [facility] [place] [address] Bilateral carotid artery stenosis Social History Tobacco Use Types Packs/Day Years Used Date Smoking Tobacco: Former Smokeless Tobacco: Never Comments:quit in her 51 's Sex and Gender Information Value Date Recorded Sex Assigned at Not on file Gender Identity Not on file Sexual Orientation Not on file documented as of this encounter Plan of Treatment Not on file documented as of this encounter Results * Carotid Duplex, Bilateral (03/10/2022 1:04 PM EST) VB Text Report Department: Vascular Surgery Lab Patient: [id number] (CAITLIN MARTE) CPT: 29766 Referring Physician: ANJALI MARTINO, INTEGRATION DEVELOPER ?? Indications: ??Carotid stenosis at OSH, ? degree of stenosis. Findings: ICA Proximal, Right ? PSV (cm/s): 276 ? EDV (cm/s): 101 ? ICA/CCA: 3.1 ? Plaque Structure: Echogenic ? Plaque Surface: Irregular ? %Stenosis: 50-69% ICA Distal, Right ? PSV (cm/s): 100 ? EDV (cm/s): 26 ? ICA/CCA: 1.1 CCA Distal, Right ? PSV (cm/s): 88 ? EDV (cm/s): 25 ? %Stenosis: Minimal CCA Proximal, Right ? PSV (cm/s): 98 ? EDV (cm/s): 22 External Carotid Artery, Right ? PSV (cm/s): 120 ? EDV (cm/s): 19 ? %Stenosis: <50% Vertebral, Right ? PSV (cm/s): 71 ? EDV (cm/s): 25 ? Direction of Flow: Antegrade ICA Proximal, Left ? PSV (cm/s): 332 ? EDV (cm/s): 112 ? ICA/CCA: 4.5 ? Plaque Structure: Echogenic ? Plaque Surface: Irregular ? %Stenosis: 60-69% ICA Distal, Left ? PSV (cm/s): 94 ? EDV (cm/s): 37 ? ICA/CCA: 1.3 CCA Distal, Left ? PSV (cm/s): 74 ? EDV (cm/s): 26 ? %Stenosis: Minimal CCA Proximal, Left ? PSV (cm/s): 73 ? EDV (cm/s): 26 External Carotid Artery, Left ? PSV (cm/s): 219 ? EDV (cm/s): 44 ? %Stenosis: >50% Vertebral, Left ? PSV (cm/s): 20 ? EDV (cm/s): 9 ? Direction of Flow: To-Fro Interpretation: RIGHT: There is bulky, irregular calcified plaque in the carotid bifurcation and proximal internal carotid artery causing 50-69% stenosis when compared to the more distal internal carotid artery. The bifurcation level is in the mid neck. LEFT: There is bulky, irregular calcified plaque in the carotid bifurcation and proximal internal carotid artery causing 60-69% stenosis when compared to the more distal internal carotid artery. The bifurcation level is in the mid neck. Calcification of the LEFT carotid bifurcation prohibits thorough interrogation by Doppler: unable to exclude more significant stenosis. Vertebral Artery Data: Patent vertebral arteries with normal antegrade Doppler waveform on the RIGHT. 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 Bilateral Doppler derived brachial artery systolic pressures: (R) 133 mmHg and (L) 110 mmHg. Comparison: ??No previous study in our vascular lab database for comparison. Electronically Signed by: RUMA ROSE on 2022-03-10 02:10:13 PM [facility] VB Text Report End of Report [facility] 03/10/2022 1:04 PM EST Anjali Martino APRN VASCULAR ORDERABLE S [facility] documented in this encounter Visit Diagnoses Diagnosis Bilateral carotid artery stenosis Occlusion and stenosis of multiple and bilateral precerebral arteries without mention of cerebral infarction documented in this encounter Care Teams Relay Tester Relationship Specialty Start Date End Date Jinny Camacho APRN [address] [place] [address] PCP - General Internal Medicine 10/04/19 documented as of this encounter
--- OUTSIDE RECORDS SUMMARY | 2023-09-06 10:19 | XMS_ITS | Encounter Summary ---
Author Organization [facility] Address [address] [place] [address] Care Team Providers Care Carpenters Supervisor Name Role Phone JaniceJinny cox CUSTOMER SERVICE RECEPTIONIST Primary Care Provider [phone] Reason for Visit * Auth/Cert Specialty Diagnoses / Procedures [facility] Referred To Contact Diagnoses Basal cell carcinoma (BCC) of right upper eyelid Basal cell carcinoma (BCC) of right upper eyelid [C44.1121] Procedures NV ADJ TISS XFER LID,NOS,EAR <10 SQCM NV REPAIR TEAR DUCTS Repair of RIGHT eyelid/Medial Carthus MOHS defect with tissue rearrangement. Possible stent placement for Repair of lacrimal drainage system PLASTIC REPAIR, CANALICULI Referral ID Status Reason Start Date Expiration Date Visits Re quested Visits Authorized [id number] 12/10/2021 02/22/2022 1 1 Encounter Details Date Type Department Care Team (Late st Contact Info) Description 12/10/2021 12:09 EDT Anesthesia Event [facility] Operating Room [address] [place], [place] [id number] Roberto Montilla MD [address] [address] Ramirez Cotto AA [address] [address] Anesthesia Record Procedure Summary Procedure Name Responsible Anesthesiologist Anesthesia Start Time Anesthesia Stop Time Repair of RIGHT eyelid/Medial Carthus MOHS defect with tissue rearrangement. Possible stent placement for Repair of lacrimal drainage system (Right: Eye) Roberto Montilal MD 12/10/21 1209 12/10/21 1451 Events Date Time Event Comment 12/10/2021 1209 An Start The patient was re-evaluated immediately before moderate or deep sedation use, before anesthesia induction, or before the anesthesia procedure. 1209 An Start Data 1216 An Induction The patient was reevaluated immediately before moderate or deep sedation use and before anesthesia induction. 1219 An Intubation 1221 Anesthesia Ready 1438 An Extubation 1442 an stop data 1451 Handoff to RN I completed my handoff to the receiving nurse during which we: 1. Identified the patient 2. Identified the responsible provider 3. Reviewed the pertinent medical history 4. Discussed the surgical course 5. Reviewed intra-op anesthesia management and issues during anesthesia 6. Set expectations for post-procedure period 7. Allowed opportunity for questions and acknowledgement of understanding. 1451 An Stop Meds Name Total dexaMETHasone (DECADRON) injection 4 mg/ mL (for IV doses up to 10mg) 6 mg ePHEDrine pre-filled syringe 10 mg fentanyl citrate (PF) injection 50 mcg ondansetron (PF) (ZOFRAN) injection 4 mg lidocaine 2% (PF) injection glass vial 6 0 mg phenylephrine pre-filled syringe 750 mcg propOFol (DIPRIVAN) injection 180 mg rocuronium 10 mg/mL vial 35 mg sugammadex 100 mg/mL 2 mL vial 200 mg ceFAZolin (ANCEF) syringe 2 g 2 g lactated ringers (LR) infusion 700 mL * Agents Name Insp Sevoflurane Exp Sevoflurane O2 N2O Air * Blood No blood administrations on file. Lines, Drains, and Airways Type Details Placement Removal Wound 12/10/21; 1246; Inci piero; Nose; N; Full thickness 12/10/21 1246 by Obdulia Zhu, JERONIMO Peripheral IV 12/10/21; 1200; 20; 1.25; Left, Posterior; Hand; Inserted by RN; 2 (Sue Pickett once in right); None; 3.15% Chlorhexidine with IPA; 12/10/21; 1545; Therapy completed; No complications, Catheter intact, Dressing applied 12/10/21 1200 by Claudine Orlando RN 12/10/21 1545 by Evonne Osullivan RN Non-Surgical Airway 12/10/21; 1235 (pau aldrich via procedure documentation); 12/10/21; 1439 12/10/21 1235 by Ramirez Cotto AA 12/10/21 1439 by Ramirez Cotto AA documented in this encounter Social History Tobacco Use Types Packs/Day Years [...] on file documented as of this encounter OR Notes * Anesthesia Postprocedure Evaluation - Ramirez Cotto AA - 12/10/2021 1451 EDT Patient: Caitlin [facility] Vital signs were reviewed with the recovery nurse. [facility] Vitals Value Taken Time BP 142/77 12/10/21 1445 Temp 36.2 12/10/21 1451 Resp 15 12/10/21 1451 Pulse From Oximetry 109 BPM 12/10/21 1451 SpO2 89 % 12/10/21 1451 Heart Rate 110 BPM 12/10/21 1451 Vitals shown include unvalidated device data. Last Pain Score - Numeric Pain Level (Scale 1-10): 0 Type of Anesthesia - general Anesthesia Post Evaluation Post-procedure vitals reviewed and are stable. Level of consciousness: awake Temperature status: normothermia Respiratory status: airway patent and nasal cannula Cardiovascular status: appropriate for condition, acceptable, stable and within patient's normal range Hydration status: adequate Nausea/Vomiting: none Pain management: adequate Post-Op Assessment: patient tolerated procedure well with no complications Patient participation: able to participate Disposition: outpatient/home Anesthesia Complications: No apparent anesthesia complications * Anesthesia Procedure Notes - Ramirez Cotto AA - 12/10/2021 1234 EDTAssociated Order(s): Airway Airway Date/Time: 12/10/2021 12:19 Urgency: elective Airway not difficult General Information and Staff Patient location during procedure: OR Anesthesiologist: Roberto Montilla MD Resident/PRESS SETTER: Ramirez Cotto AA Performed: anesthesiologist and resident/PRESS SETTER/AA Indications and Patient Condition Indications for airway management: anesthesia Sedation level: GA Preoxygenated: yes Patient position: sniffing Ventilation assessment: 1 - Easy Final Airway Details Final airway type: endotracheal airway (oral tootie) Successful airway: ETT Cuffed: yes Successful intubation technique: video laryngoscopy [place] Facilitating devices/methods: intubating stylet Endotracheal tube insertion site: oral Blade: Damon Blade size: #3 ETT size (mm): 7.0 Cormack-Lehane Classification: view obtained with video laryngoscopy Placement verified by: chest auscultation and capnometry Measured from: teeth Number of attempts at approach: 1 Additional Comments [place] 3 - Grade I View. 7.0 Oral Tootie ETT. Easy BMV. * Anesthesia Preprocedure Evaluation - Roberto Montilla MD - 12/10/2021 0918 EDT Anesthesia Preprocedure Evaluation Patient Medical History, including Anesthesia History reviewed. Chart and Nursing Notes reviewed, including NPO status and Medication History. Additional ROS/History Findings: No Known Allergies Review of Systems Constitutional: Negative. Respiratory: Negative. Cardiovascular: Negative. Gastrointestinal: Negative. Past Medical History: Diagnosis Date ??? Basal cell carcinoma (BCC) of right upper eyelid 12/02/2021 ??? Cataract ??? Hypertension ??? Other states following surgery of eye and adnexa ??? Thyroid disease Relevant Problems No relevant active problems Physical Exam Airway Mallampati: II TM distance: <3 FB Neck ROM: full Cardiovascular - normal exam Dental (+) upper dentures Comments: Missing lower teeth Pulmonary - normal exam Abdominal Anesthesia Plan ASA 2 Anesthesia Type - general Anesthesia plan and risks discussed. Informed consent obtained from patient. Code status discussed? No PAT Note Notes from 11/10/21 through 12/10/21 No notes of this type exist for this encounter. documented in this encounter Plan of Treatment Upcoming Encounters Date Type Department Care Team (Late st Contact Info) Description 10/27/2023 12:50 EDT Office Visit [facility] Dermatology 3rd Floor [facility] [address] [place] [address] Nikita Kumari PA-C 111 [facility], [facility], [address] [place] [address] documented as of this encounter Procedures Procedure Name Priority Date/Time Associated Diagnosis Comments ANESTHESIA INTUBATION Routine 12/10/2021 12:19 EDT documented in this encounter Results * NV AN ELECTIVE ENDOTRACHEAL AIRWAY (12/10/2021 12:19 EDT) Narrative Ramirez Cotto AA - 12/10/2021 12:19 EDT Ramirez Cotto AA ? 12/10/2021 12:35 Airway Date/Time: 12/10/2021 12:19 Urgency: elective Airway not difficult General Information and Staff Patient location during procedure: OR Anesthesiologist: Roberto Montilla MD Resident/PRESS SETTER: Ramirez Cotto AA Performed: anesthesiologist and resident/PRESS SETTER/AA Indications and Patient Condition Indications for airway management: anesthesia Sedation level: GA Preoxygenated: yes Patient position: sniffing Ventilation assessment: 1 - Easy Final Airway Details Final airway type: endotracheal airway (oral tootie) Successful airway: ETT Cuffed: yes Successful intubation technique: video laryngoscopy [place] Facilitating devices/methods: intubating stylet Endotracheal tube insertion site: oral Blade: Damon Blade size: #3 ETT size (mm): 7.0 Cormack-Lehane Classification: view obtained with video laryngoscopy Placement verified by: chest auscultation and capnometry Measured from: teeth Number of attempts at approach: 1 Additional Comments [place] 3 - Grade I View. 7.0 Oral Tootie ETT. Easy BMV. Roberto Montilla MD ANESTHESIA ORD ERABLES documented in this encounter Visit Diagnoses Not on filedocumented in this encounter Administered Medications Inactive Administered Medications - up to 3 most recent administrations Medication Order MAR Action Action Date Dose Rate Site ceFAZolin (ANCEF) syringe 2 g 2 g, intravenous, Administer over 5 Minutes, PRE-OP ONCE, 1 dose, On Thu12/10/21 at 1215, Routine, Preprocedure Given 12/10/2021 12:20 EDT 2 g dexAMETHasone (DECADRON) injection intravenous, PRN, Starting on Thu12/10/21 at 1230, Until Thu12/10/21 at 1451, Routine, Anesthesia Intraprocedure Given 12/10/2021 12:30 EDT 6 mg ePHEDrine injection 25 mg/5 mL syringe intravenous, PRN, Starting on Thu12/10/21 at 1253, Until Thu12/10/21 at 1451, Routine, Anesthesia Intraprocedure Given 12/10/2021 13:38 EDT 5 mg Given 12/10/2021 12:53 EDT 5 mg fentaNYL citrate (PF) injection intravenous, PRN, Starting on Thu12/10/21 at 1216, Until Thu12/10/21 at 1451, Routine, Anesthesia Intraprocedure Given 12/10/2021 12:16 EDT 50 mcg lactated ringers (LR) infusion at 25 mL/hr, intravenous, CONTINUOUS, Starting on Thu12/10/21 at 1200, Until Thu12/10/21 at 1802, Routine, Preprocedure Restarted 12/10/2021 12:09 EDT New Bag 12/10/2021 12:02 EDT 25 mL/hr lidocaine (PF) 20 mg/mL (2 %) injection intravenous, PRN, Starting on Thu12/10/21 at 1216, Until Thu12/10/21 at 1451, Routine, Anesthesia Intraprocedure Given 12/10/2021 12:16 EDT 60 mg ondansetron (PF) (ZOFRAN) injection intravenous, PRN, Starting on Thu12/10/21 at 1428, Until Thu12/10/21 at 1451, Routine, Anesthesia Intraprocedure Given 12/10/2021 14:28 EDT 4 mg phenylephrine HCl in 0.9% NaCl injection intravenous, PRN, Starting on Thu12/10/21 at 1229, Until Thu12/10/21 at 1451, Routine, Anesthesia Intraprocedure Given 12/10/2021 14:09 EDT 100 mcg Given 12/10/2021 13:35 EDT 100 mcg Given 12/10/2021 13:23 EDT 100 mcg propOFol (DIPRIVAN) injection intravenous, PRN, Starting on Thu12/10/21 at 1217, Until Thu12/10/21 at 1451, Routine, Anesthesia Intraprocedure Given 12/10/2021 14:33 EDT 10 mg Given 12/10/2021 14:30 EDT 20 mg Given 12/10/2021 13:23 EDT 30 mg rocuronium (ZEMURON) injection intravenous, PRN, Starting on Thu12/10/21 at 1217, Until Thu12/10/21 at 1451, Routine, Anesthesia Intraprocedure Given 12/10/2021 12:17 EDT 35 mg sugammadex (BRIDION) injection intravenous, PRN, Starting on Thu12/10/21 at 1435, Until Thu12/10/21 at 1451, Routine, Anesthesia Intraprocedure Given 12/10/2021 14:35 EDT 200 mg documented in this encounter Care Teams Carpenters Supervisor Relationship Specialty Start Date End Date Jinny Camacho NP [address] [place] [address] PCP - General Family Medicine - Primary Care 12/03/21 documented as of this encounter
--- OUTSIDE RECORDS SUMMARY | 2023-09-06 10:19 | XMS_ITS | Encounter Summary ---
Author Organization [facility] Address [address] [place] [address] Care Team Providers Care Audit Lead Name Role Phone JaniceJinny HAND OUTSIDE CUTTER Primary Care Provider [phone] Reason for Visit * Reason Comments Follow-up Skin lesions Encounter Details Date Type Department Care Team (Late st Contact Info) Description 10/29/2022 10:50 EDT Office Visit [facility] Dermatology 3rd Floor [address] [id number] Nikita Kumari PA-C [address] [facility], [address] [place] [address] History of basal cell carcinoma (Primary Dx); Diffuse photodamage of skin; Seborrheic keratoses; Neoplasm of uncertain behavior of skin Social [...] this encounter Patient Instructions * Patient Instructions* Nikita uKmari PA-C - 10/29/2022 10:50 EDT WOUND CARE INSTRUCTIONS FOR SHAVE/PUNCH SKIN BIOPSY The DRESSING/BAND-AID should remain in place for 24 hours. You may shower or bathe after 24 hours; remove the bandage and replace it after the shower. Continue to keep the biopsy site covered with Vaseline and a Band-Aid/bandage for 1 week after the biopsy and change daily. WOUND CARE: ?? Wash hands with soap and water before changing the dressing. ?? Clean the wound daily with mild soap and water. You may gently loosen any crusts with a cotton swab. The wound may be slightly tender and may bleed a small amount. A small amount of discharge is normal. ?? Apply a thin layer of sterile petroleum jelly over the wound. Cover the wound with a Telfa (non-stick) dressing or bandage. It is important to keep the wound covered. ?? Change the dressing daily and when it becomes wet. Do not clean your open wound with hydrogen peroxide or apply an antibiotic ointment unless prescribed by your provider. Using these can be more harmful and damaging to the healing skin. Many people are allergic to the topical antibiotics over the counter and this results in a rash occurring around the biopsy site. DISCOMFORT: Expect some discomfort. Tylenol, taken as directed by the lumber sorter machine, will help relieve pain. If Tylenol does not provide sufficient relief, you may also take Ibuprofen alternating every four hours with the Tylenol. If the pain is severe and not relieved by the above measures, please c all the office. BLEEDING: You may notice some blood on the edges of the dressing the first day and this is normal. If the bleeding soaks through the dressing, remove the dressing, and apply firm, steady pressure with a moist clean wash cloth for twenty minutes. If the bleeding stops, redress the wound, if not, call our office at . ACTIVITY: You may resume normal activity in 1 day unless instructed otherwise. LEG BIOPSIES: If your biopsy was on the leg, expect the healing process to take weeks-months. You will need to keep it covered for at least 2 weeks. It is normal and expected that leg wounds/biopsies take what seems like forever to heal. Healing can also take longer in patients who have swollen legs or peripheral vascular disease. Make sure the biopsy site is the last area you wash in the shower (or re wash it when you get out) to ensure that bacteria from your body does not run into your wound and result inan infection. If you had stitches placed (usually after having a punch biopsy) you will need to have these removed by our nursing staff, in 7 days, unless otherwise instructed. CONTACT THE OFFICE or IF YOU EXPERIENCE: ?? increased redness ?? warmth to touch ?? increased pain ?? drainage with a foul odor ?? rapid swelling of the wound ?? fever or chills To our patients in dermatology: The recently passed Cures Act requires that all lab and biopsy results are available to you online when they are processed (the same time they are released to your provider). If you choose to look at your results in [facility] prior to our office contacting you, that is your right and choice. Our office policy is to have your provider or the provider???s after school program assistant contact you with your results and any treatment plan, in a timely manner. In some cases, biopsy and/or lab results can be upsetting, and we prefer to give you the results ourselves once we have reviewed them and have formulated a plan. If you opt to read your results online before we are able to contact you, please do not call the office or send a [facility] message asking to discuss them. Providers are seeing patients during the day and cannot answer calls during clinic time or off hours/weekends. Unless it is an emergency, the special forces communications sergeant provider will not review biopsy and/ or lab results. Thank you for entrusting us with your care. [facility]- Dermatology documented in this encounter Progress Notes * Nikita Kumari PA-C - 10/29/2022 1050 EDT Dermatology Outpatient Visit Note Chief Complaint Patient presents with ??? Follow-up Skin lesions Dermatologic History: #H/o basal cell carcinoma - right cheek, left chin s/p Mohs 04/17 - right medial canthus s/p Mohs 12/14 Last Dermatology office visit: 04/17, Mohs with Dr. Belem DIMAS Ms. Marte is a 82 y.o. female who presents for new evaluation and treatment for a skin check. Cutaneous concerns listed below. ??? Mohs sites healed well ??? Concerned with multiple asymptomatic spots on the trunk and extremities She is otherwise feeling well and has no other cutaneous concerns today. MEDICATION LIST She has a current medication list which includes the following prescription(s): atorvastatin, carvedilol, fluoxetine, furosemide, lisinopril, methimazole, and potassium chloride. ALLERGY LIST She has No Known Allergies. OBJECTIVE Ms. Marte is a well appearing and in no acute distress female, with a normal affect. She has medium skin. Cutaneous full body examination including the hair, scalp, face, eyelids, lips, neck, chest, back, abdomen, all four extremities, hands, feet, digits and nails was performed. The examination was significant for the following: - right superior forehead: atypical pink brown low papule - photo-distribution: diffuse actinic injury and mottled pigmentation - distributed over the head, torso and extremities: multiple, caceres-brown, stuck- on appearing, waxy and hyperkeratotic papules and plaques ASSESSMENT/PLAN History of basal cell carcinoma Diffuse photodamage of skin The nature of sun-induced photo-aging and skin cancers is discussed. Sun avoidance, protective clothing, and the use of OTC broad spectrum 50+-SPF sunscreens with both UVA and UVB coverage is advised. Observe closely for skin damage/changes, and call if such occurs. Seborrheic keratoses Reassured the patient that these are benign lesions and they may continue to increase in size, number and thickness over time. They are not considered cancerous or precancerous and no treatment is necessary, unless they become symptomatic. Neoplasm of uncertain behavior of skin ddx pigmented BCC vs pigmented AK r/o MIS Given the diagnostic uncertainty, offered to biopsy this today. Patient was advised of the risks ofbiopsy, including pain, infection, bleeding, and inevitability of scar formation. Patient was made aware he/she will be called with biopsy results when available, at which time further treatment recom mendations will be made based on the results attained. The patient verbalized understanding and hadno further questions at the time. See procedure note below for details. PROCEDURE NOTE SHAVE BIOPSY PATIENT INFORMATION: Caitlin Marte : MRN: [id number] SURGEON: Nikita Kumari PA-C The indication, risks, benefits and alternatives to this procedure were discussed in detail with the patient and all questions were answered. Informed consent was obtained in writing. PROCEDURE NOTE Specimen A Procedure: Tangential Shave Indication: Diagnostic Biopsy Site: right and superior forehead Anesthesia: 1% lidocaine with epinephrine 1:100,000 local infiltration Prep: Alcohol The lesion was prepped as above and locally anesthetized. The specimen was removed by tangential shave using a Dermablade??. Hemostasis was achieved with pressure and/or aluminum chloride. The wound was cleansed with alcohol and a sterile dressing was applied over Petrolatum ointment. Verbal and written wound care instructions were given.The specimen was submitted to pathology for histological evaluation. She will f/u as planned or in the interim should problems arise. Return in about 1 year (around 10/30/2023) for FBSE, H/o BCC. The attending physician was available for this visit. Nikita Kumari PA-C 10/29/2022 12:21 documented in this encounter Miscellaneous Notes * Result Encounter Note - Nikita Kumari PA-C - 10/29/2022 1050 EDT Please notify patient of biopsy results, consistent with basal cell carcinoma, a superficial skin cancer. It was fully removed with the biopsy. Plan to monitor, reevaluate at next follow-up. Thanks, Nikita Kumari PA-C 10/31/2022 12:32 * Result Encounter Note - Jerel Schultz MA - 10/29/2022 1050 EDT Called patient and relayed biopsy results. Patient verbalized a good understanding and had no further questions at the time of the call. JEREL CSHULTZ MA 16:26 10/31/2022 documented in this encounter Plan of Treatment Upcoming Encounters Date Type Department Care Team (Late st Contact Info) Description 10/27/2023 12:50 EDT Office Visit [facility] Dermatology 3rd Floor [facility] [address], [place] [id number] Nikita Kumari PA-C [address] [facility], [facility], [address] [place] [address] documented as of this encounter Procedures Procedure Name Priority Date/Time Associated Diagnosis Comments SURGICAL PATHOLOGY Routine 10/29/2022 12 :12 EDT Neoplasm of uncertain behavior of skin documented in this encounter Results * SURGICAL PATHOLOGY (10/29/2022 12:12 EDT) Note to Patient The following pathology results have been interpreted by your pathologist and may be available to you before your health provider has had the opportunity to review them. Please allow time for your provider to receive these results and explore management options, if applicable. 10/31/2022 10:36 EDT [facility] Final Diagnosis A. SKIN OF FOREHEAD, RIGHT SUPERIOR, SHAVE BIOPSY: - Basal cell carcinoma, superficial and nodular types, pigmented. See comment. - Lesion does not extend to biopsy edges in the plane of sections examined. - Lesion measures approximately 0.2 mm to the biopsy base. - Lesion measures approximately 0.8 mm to the biopsy edge. 10/31/2022 10:36 EDT [facility] Diagnosis Comment The findings are those of basal cell carcinoma, best appreciated on deeper sections. 10/31/2022 10:36 T [facility] Attestation By the signature below, the attending physician certifies that they have 1) personally conducted a gross and/or microscopic examination of the described specimen(s), and/or personally interpreted the results of laboratory testing of the described specimen(s), and 2) personally rendered or confirmed the above diagnosis. 10/31/2022 10:36 [facility] at 1036 Microscopic Description Emanating from the epidermis and present within the dermis are irregularly shaped islands of atypical basal cells. The basal cells have scant cytoplasm and round dark nuclei. Mitotic figures and apoptotic bodies are evident. The nuclei at the periphery of the islands have a palisaded arrangement. The islands are associated with a fibromyxoid stroma and there is cleft formation between some of the islands and stroma. SOX-10 ALK PHOS (SP267, Greenscreen Animals) shows a melanocytes to be generally normal in number and distribution. Additional levels have been reviewed. NOTE: One or more of the reagents used in immunoperoxidase testing in this case may not have been cleared or approved by the U.S. Food and Drug Administration (FDA). The FDA has determined that such clearance or approval is not necessary. These tests are used for clinical purposes. They should not be regarded as investigational or for research. These reagents' performance characteristics have been determined by [facility] and/or by the referring laboratory. The positive and negative controls worked appropriately. If immunoperoxidase staining has been performed on alcohol fixed cytology specimens, which has not been fully validated, the assays should be interpreted with caution and correlated with clinical data. This laboratory is certified under the Clinical Laboratory Improvement Amendments of 1988 (CLIA-88) as qualified to perform high complexity clinical laboratory testing.? 10/31/2022 10:36 [facility] Clinical History Irregular pink-brown low papule ; DDx: Pigmented BCC vs AK vs lentigo R/O LM; clinical diagnosis code: D48.5 10/31/2022 10:36 [facility] Gross Description A. Received in formalin labelled with proper patient identification (initials W, P) and forehead, right superior is a shave biopsy of transparent caceres-white skin (0.5 x 0.3 by less than 0.1 cm). There is a central irregular pearly variegated brown papule that measures 0.3 x 0.2 cm. The margin is inked blue and the specimen is submitted intact in A1. Gabi Molinai 10/30/2022 8:14 10/31/2022 10:36 EDT [facility] Performing Lab [facility] 10:36 EDT [facility] Scanned Images 10/31/2022 10:36 EDT [facility] Tissue SPECIMEN FROM SKIN / Unknown 10/29/2022 12:12 EDT 10/29/2022 16:24 EDT Nikita Kumari PA-C PATHOLOGY ORDERAB LES [facility] [address] [place] [address] documented in this encounter Visit Diagnoses Diagnosis History of basal cell carcinoma- Primary Personal history of other malignant neoplasm of skin Diffuse photodamage of skin Other chronic dermatitis due to solar radiation Seborrheic keratoses Neoplasm of uncertain behavior of skin documented in this encounter Care Teams Audit Lead Relationship Specialty Start Date End Date Jinny Camacho NP [address] [place] [address] PCP - General Family Medicine - Primary Care 12/03/21 documented as of this encounter
--- OUTSIDE RECORDS SUMMARY | 2023-09-06 10:19 | XMS_ITS | Encounter Summary ---
Author Organization [facility] Address [address] [place] [address] Care Team Providers Care Enterprise Services Manager Name Role Phone Unknown, Provider Primary Care Provider Reason for Visit * Reason Onset Date Comments Appointment Related 07/19/2021 Encounter Details Date Type Department Care Team (Late st Contact Info) Description 07/19/2021 Telephone [facility] Ophthalmology - [address] [address] Whitley Elias MD [address] [place] [address], [address] [place] [phone] Appointment Related Social History Tobacco Use Types Packs/Day Years [...] * Telephone Encounter - Erwin Hernandez - 07/19/2021 1320 EDT Called and LMOM for patient to call back and have appointment on 08/08 rescheduled to 08/06 due to provider going into the OR documented in this encounter Plan of Treatment Upcoming Encounters Date Type Department Care Team (Late st Contact Info) Description 10/27/2023 12:50 EDT Office Visit [facility] Dermatology 3rd Floor [facility] [address] [place], [place] [address] Nikita Kumari PA-C 111 [facility], [facility], [address] [place] [phone] documented as of this encounter Visit Diagnoses Not on filedocumented in this encounter Care Teams Enterprise Services Manager Relationship Specialty Start Date End Date Unknown, Provider, PCP - General 01/25/21 12/02/21 documented as of this encounter
--- OUTSIDE RECORDS SUMMARY | 2023-09-06 10:19 | XMS_ITS | Encounter Summary ---
Author Organization [facility] Address [address] [place] [address] Care Team Providers Care Busher Helper Name Role Phone Unknown, Provider Primary Care Provider [phone] Jinny Camacho PURCHASING ASSISTANT Primary Care Provider [phone] Encounter Details Date Type Department Care Team (Late st Contact Info) Description 11/07/2019 Lab Requisition [facility] Pathology & Laboratory Medicine - [address] [address] Outr Resulting Lab, Provider Social History Tobacco Use Types Packs/Day Years Used Date Smoking Tobacco: Never Assessed Sex and Gender Information Value Date Recorded Sex Assigned at Not on file Gender Identity Female 12/03/2021 11:01 EDT Sexual Orientation Not on file documented as of this encounter Plan of Treatment Upcoming Encounters Date Type Department Care Team (Late st Contact Info) Description 10/27/2023 12:50 EDT Office Visit [facility] Dermatology 3rd Floor [address] [address] Nikita Kumari PA-C [address] [place] [address], [address] [place] [phone] documented as of this encounter Procedures Procedure Name Priority Date/Time Associated Diagnosis Comments T3, TOTAL Routine 11/07/2019 7:10 EDT documented in this encounter Results * T3, TOTAL (11/07/2019 7:10 EDT) T3, Total 130 97 - 169 ng/dL 11/07/2019 22:12 EDT [facility] Blood VENOUS BLOOD / Unknown 11/07/2019 7:10 EDT 11/07/2019 21:30 EDT Provider Outr Resulting Lab CHEMISTRY & BLOOD GAS ORDERABLES [facility] [address] [place] [address] documented in this encounter Visit Diagnoses Not on filedocumented in this encounter Care Teams Busher Helper Relationship Specialty Start Date End Date Unknown, Provider, PCP - General 01/25/21 12/02/21 Jinny Camacho, PURCHASING ASSISTANT [address] [place] [id number] PCP - General Family Medicine - Primary Care 12/03/21 documented as of this encounter
--- OUTSIDE RECORDS SUMMARY | 2023-09-06 10:19 | XMS_ITS | Encounter Summary ---
Author Organization [facility] [place] [address] Care Team Providers Care Special Education Resource Teacher Name Role Phone Jinny Camacho APRN Primary Care Provider [phone] Encounter Details Date Type Department Care Team (Late st Contact Info) Description 08/13/2022 Telephone [place] [address] Petros Schmidt, [facility] [place] [address] Social History Tobacco Use Types Packs/Day Years Used Date Smoking Tobacco: Former Smokeless Tobacco: Never Comments:quit in her 50 's Sex and Gender Information Value Date Recorded Sex Assigned at Not on file Gender Identity Not on file Sexual Orientation Not on file documented as of this encounter Miscellaneous Notes * Telephone Encounter - Petros Schmidt DO - 08/13/2022 12:04 PM EDT Spoke with Jinny Camacho APRN. Patient has been seen here for Graves disease. She is taking 10mg methimazole. She is also having left eye bulging. Current labs show: Tsh 0.01 Free t4 1.18 (0.76-1.46) Prior labs were: 06/17/21 TSH 6.44 Free T4: 0.75 12/17/21 TSH 0.85 She has sent referrals for her to be seen here again and for ophthalmology, which I agree with. I advised that in the meantime they can increase methimazole to 15mg with a plan to re-check the labs in two months. Petros Schmidt DO Endocrinology Fellow documented in this encounter Plan of Treatment Not on file documented as of this encounter Visit Diagnoses Not on filedocumented in this encounter Care Teams Special Education Resource Teacher Relationship Specialty Start Date End Date Jinny Camacho APRN [address] [place] [address] PCP - General Internal Medicine 10/04/19 documented as of this encounter
--- OUTSIDE RECORDS SUMMARY | 2023-09-06 10:19 | XMS_ITS | Encounter Summary ---
Author Organization [facility] Address [address] [place] [address] Care Team Providers Care Programmer Engineering And Scientific Name Role Phone Unknown, Provider Primary Care Provider Reason for Visit * Reason Comments Procedure Encounter Details Date Type Department Care Team (Late st Contact Info) Description 09/24/2021 14:45 EDT Office Visit [facility] Ophthalmology - [address] [address] Whitley Elias MD [address] [place] [address], [address] [place] [phone] Social History Tobacco Use Types Packs/Day Years [...] Sign Reading Time Taken Comments Blood Pressure 175/85 09/24/2021 1504 EDT Pulse - - Temperature - - Respiratory Rate - - Oxygen Saturation - - Inhaled Oxygen Concentration - - Weight - - Height - - Body Mass Index - - documented in this encounter Ordered Prescriptions Prescription Sig Dispensed Refills Start Date End Da te erythromycin (ROMYCIN) 5 mg/gram (0.5 %) ophthalmic ointment Apply to right eyelid stitches and right cheek 3 times a day for 1 week 3.5 g 1 09/24/2021 12/10/2021 documented in this encounter Procedure Notes * Whitley Elias MD - 09/24/2021 1445 EDT See procedure note documented in this encounter Plan of Treatment Upcoming Encounters Date Type Department Care Team (Late st Contact Info) Description 10/27/2023 12:50 EDT Office Visit [facility] Dermatology 3rd Floor [facility] [address] [place], [place] [phone] Nikita Kumari PA-C [address] [facility], [facility], [facility] [address] [place] [phone] documented as of this encounter Procedures Procedure Name Priority Date/Time Associated Diagnosis Comments BIOPSY, LID LESION - OD - RIGHT EYE Routine 09/27/2021 17:57 EDT Neoplasm of uncertain behavior of skin of eyelid SURGICAL PATHOLOGY Routine 09/24/2021 15 :59 EDT Neoplasm of uncertain behavior of skin of eyelid documented in this encounter Results * BIOPSY, LID LESION - OD - RIGHT EYE (09/27/2021 17:57 EDT) Narrative [facility] POINT OF CARE - 09/27/2021 17:57 EDT Title of procedure: Biopsy of eyelid lesion Biopsy of cheek lesion Pre-operative diagnosis: neoplasm of uncertain behavior of skin of eye lid and skin of cheek Post-operative diagnosis: same Surgeon: Whitley Elias MD Prep: betadine Anesthesia: Local injection of 2% lidocaine with 1:100,000 epinephrine Specimen: A. Right medial canthus lesion B. Right cheek lesion Narrative: Informed consent obtained prior to procedure. ??Procedure site identified and marked. Time out was held. ??Patient was positioned. ??Local anesthetic was injected at operative site. ??The lesion was biopsied using forceps and Boo scissors. ??Specimen submitted to pathology for permanent section. ?? The wound was closed with interrupted 7-0 chromic. Attention was then turned to the right cheek lesion which was infiltrated with local and the biopsied with a number 15 blade. ??Specimen was submitted to pathology for permanent section. Erythromycin ointment was applied. ??The patient tolerated the procedure well without complication. Patient was instructed to use erythromycin twice daily for 7 days and will call pathology results. ??Return precautions were discussed. Whitley Elias MD [facility] PROCEDU RES [facility] POINT OF CARE * SURGICAL PATHOLOGY (09/24/2021 15:59 EDT) Note to Patient The following pathology results have been interpreted by your pathologist and may be available to you before your health provider has had the opportunity to review them. Please allow time for your provider to receive these results and explore management options, if applicable. 09/26/2021 14:12 [facility] Final Diagnosis A. SKIN OF MEDIAL CANTHUS, RIGHT, BIOPSY: - Basal cell carcinoma, nodular type. - Basal cell carcinoma present at peripheral and deep tissue edges. B. SKIN OF CHEEK, RIGHT, BIOPSY: - Basal cell carcinoma, nodular type. - Basal cell carcinoma present peripheral and deep tissue edges. 09/26/2021 14:12 [facility] Attestation By the signature below, the attending physician certifies that they have 1) personally conducted a gross and/or microscopic examination of the described specimen(s), and/or personally interpreted the results of laboratory testing of the described specimen(s), and 2) personally rendered or confirmed the above diagnosis. 09/26/2021 14:12 [facility] at 1412 Microscopic Description Irregularly shaped islands of atypical basal cells infiltrate the dermis. The basal cells have scant cytoplasm and round dark nuclei. Mitotic figures and apoptotic bodies are evident. The nuclei at the periphery of the islands have a palisaded arrangement. The islands are associated with a fibromyxoid stroma and there is cleft formation between some of the islands and stroma. 09/26/2021 14:12 [facility] Clinical History Medial canthus lesion suspucius for malignancy, cheek lesion suspicious for malignancy; clinical diagnosis code: D48.5 09/26/2021 14:12 EDT [facility] Gross Description A. Received in formalin labelled with proper patient identification (initials W, P) and right medial canthus is an irregular portion of caceres-pink granular, cauterized tissue (1.5 x 0.7 x 0.5 cm). A definitive surgical margin is not identified. Specimen is sectioned and submitted entirely in A1. B. Received in formalin labelled with proper patient identification (initials W, P) and right cheek is a shave biopsy of pearly white tissue (0.3 x 0.1 x 0.1 cm). The specimen is inked and submitted entirely in B1. DAVID FLANNERY([facility]) 09/25/2021 6:39 09/26/2021 14:12 EDT [facility] Performing Lab [facility] 09/26/2021 14:12 T [facility] Scanned Images 09/26/2021 14:12 T [facility] Tissue TISSUE SPECIMEN FROM SKIN / Unknown Collection, Other / Unknown 09/24/2021 15:59 EDT 09/24/2021 17:14 EDT Tissue specimen (specimen) SPECIMEN FROM SKIN / Unknown 09/24/2021 15:59 EDT 09/24/2021 17:14 EDT Whitley Elias MD PATHOLOGY ORDERABLES [facility] [address] [place] [address] documented in this encounter Visit Diagnoses Diagnosis Neoplasm of uncertain behavior of skin of eyelid- Primary Neoplasm of uncertain behavior of skin documented in this encounter Care Teams Programmer Engineering And Scientific Relationship Specialty Start Date End Date Unknown, Provider, PCP - General 01/25/21 12/02/21 documented as of this encounter
--- OUTSIDE RECORDS SUMMARY | 2023-09-06 10:19 | XMS_ITS | Encounter Summary ---
Author Organization [facility] Address [address] [place] [address] Care Team Providers Care Coordinating Producer Name Role Phone Unknown, Provider Primary Care Provider Reason for Visit * Reason Comments Eye Problem * Consult, Test and Treat (Routine) - Receiving Office to Obtain Authorization Specialty Diagnoses / Procedures Referred By Zoya juarez Referred To Contact Ophthalmology Diagnoses Other disorders of lacrimal system Linwood Becker MD [address] [place] [id number] Whitley Elias MD [address] [place] [phone] Referral ID Status Reason Start Date Expiration Date Visits Requested Visits Authorized [id number] Receiving Office to Obtain Authorization 1 1 Encounter Details Date Type Department Care Team (Late st Contact Info) Description 06/28/2021 10:[address] [facility] Ophthalmology - [address] [phone] Whitley Elias MD [address] [place] [phone] Social History Tobacco Use Types Packs/Day Years Used Date Smoking Tobacco: Former Smokeless Tobacco: Never Interpersonal Safety Answer Date Record ed Physically Hurt Never 01/17/2020 Verbally Threaten Not on file 01/17/2020 Sex and Gender Information Value Date Recorded Sex Assigned at Not on file Gender Identity Female 12/03/2021 11:01 EDT Sexual Orientation Not on file documented as of this encounter Progress Notes * Whitley Elias MD - 06/28/2021 1015 EDT Chief Complaint Patient presents with ??? Eye Problem Comments NPV- Right eye medial canthal nodular lesion per [facility]. Bump nasally inner corner right eye/ bridge of nose . Noticed 6 months ago with no change in size. Within the past 3 months the areanow looks bruised. Glasses seems to sit on that area. No pain no itching. Bump seems to be filled with a fluid. Vision stable both eyes. No new F.F No hx of skin cancer HPI The patient is a 80 y.o. female NPV- Right eye medial canthal nodular lesion per [facility]. Bump nasally inner corner right eye/ bridge of nose . Noticed 6 months ago with no change in size. Within the past 3 months the area now looks bruised. Glasses seems to sit on that area. No pain no itching. Bump seems to be filled with a fluid. Vision stable both eyes. No new F.F No hx of skin cancer ROS Constitutional: ENT/Mouth NL Cardiovascular: High Blood Pressure (CHF) Respiratory: NL Gastrointestinal: NL Genitourinary: Musculoskeletal: Joint Pain Integumentary: Neurologic: NL Psychiatric: Endocrine: Thyroid problems Hematologic: NL Immunologic: Drug Allergy Manager Academic: Exposures: Other: Attestation: Allergies include: Patient has no allergy information on record. There is no problem list on file for this patient. Outpatient Medications Marked as Taking for the 06/28/21 encounter (Office Visit) with Whitley Elias MD Medication Sig [...] (Snellen - Linear) Right Left Dist sc 20/30 20/30 Dist ph sc NI NI Tonometry (Applanation, 10:54) Right Left Pressure 19 21 Pupils Pupils Right PERRL Left PERRL Neuro/Psych Oriented x3: Yes Mood/Affect: Normal Additional Tests Color Right Left Ishihara 14/15 14/15 Slit Lamp and Fundus Exam External Exam Right Left External medial canthal lesion Normal Slit Lamp Exam Right Left Lids/Lashes Medial canthal lesion w/ telangiectasias, cystic components, firm, central umbilicationNormal Conjunctiva/Sclera White and quiet White and quiet Cornea Clear Clear Anterior Chamber Deep and quiet Deep and quiet Iris Round and reactive Round and reactive DIAGNOSTIC TESTS: IMPRESSION & PLAN: Encounter Diagnosis Name Primary? Neoplasm of uncertain behavior of skin of eyelid Yes 1. Neoplasm of uncertain behavior of skin of eyelid Discussed treatment options, including observation vs biopsy.?? Given the suspicious appearance of the lesion would recommend biopsy. Discussed risks of excisional biopsy, including pain, bleeding, infection, need for additional surgery depending on the biopsy results, scarring, recurrence.?? Patient would like to proceed.?? Will plan for excisional in the treatment room under local anesthestic. Discussed risk of damage to the tear drainage system. I have reviewed the patient's past medical, family, social and surgical history. I have also reviewed the patient's medications, allergies, and problem list. I performed my own HPI and have reviewed the [facility]'s ROS as well. I personally completed this exam myself. Whitley Elias MD I am scribing for Whitley Elias MD while she personally performs the service. FRANCISCO Sutton, 06/28/2021, 19:29 The patient was instructed to call our office or go to emergency room if worse vision, worse symptoms, or new/other concerns arise. documented in this encounter Plan of Treatment Upcoming Encounters Date Type Department Care Team (Late st Contact Info) Description 10/27/2023 12:50 EDT Office Visit [facility] Dermatology [address] [facility] [address] [place] [address] Nikita Kumari PA-C 111 [facility], [facility], [address] [place] [phone] documented as of this encounter Visit Diagnoses Diagnosis Neoplasm of uncertain behavior of skin of eyelid- Primary Neoplasm of uncertain behavior of skin documented in this encounter Historical Medications * This list may reflect changes made after this encounter. Medication Sig Dispensed Refills Start Date End Date potassium chloride (KLOR-CON) 20 mEq packet Take 20 mEq by mouth 2 times daily. methIMAzole (TAPAZOLE) 10 mg tablet Take 1 Tablet by mouth 3 times daily. lisinopriL (PRINIVIL) 10 mg tablet Take 10 mg by mouth daily. furosemide (LASIX) 20 mg tablet Take 1 Tablet by mouth 2 times daily. FLUoxetine (PROZAC) 10 mg capsule Take 1 Capsule by mouth daily. carvedilol (COREG) 3.125 mg tablet Take 1 Tablet by mouth 2 times daily with breakfast and dinner. atorvastatin (LIPITOR) 10 mg tablet Take 1 Tablet by mouth daily. added in this encounter Eye Exam Visual Acuity (Snellen - Linear) Right eye Left eye Dist sc 20/30 20/30 Dist ph sc NI NI Tonometry (Applanation, 10:54) Right eye Left eye Pressure 19 21 Pupils Pupils Right eye PERRL Left eye PERRL Neuro/Psych Oriented x3: Yes Mood/Affect: Normal Color Right eye Left eye Ishihara 14/15 14/15 External Exam Right eye Left eye External medial canthal lesion Normal Slit Lamp Exam Right eye Left eye Lids/Lashes Medial canthal lesio n w/ telangiectasias, cystic components, firm, central umbilication Normal Conjunctiva/Sclera White and quiet White and bette et Cornea Clear Clear Anterior Chamber Deep and quiet Deep and quiet Iris Round and reactive Round and rusty ctive Care Teams Coordinating Producer Relationship Specialty Start Date End Date Unknown, Provider, PCP - General 01/25/21 12/02/21 documented as of this encounter
--- OUTSIDE RECORDS SUMMARY | 2023-09-06 10:19 | XMS_ITS | Encounter Summary ---
Author Organization [facility] [place] [address] Care Team Providers Care Deli Clerk Name Role Phone Jinny Camacho APRN Primary Care Provider [phone] Encounter Details Date Type Department Care Team (Latest Contact Info) Description 11/11/2022 Travel Social History Tobacco Use Types Packs/Day [...] on filedocumented in this encounter Care Teams Deli Clerk Relationship Specialty Start Date End Date Jinny Camacho APRN [address] [place] [address] PCP - General Internal Medicine 10/04/19 documented as of this encounter
--- OUTSIDE RECORDS SUMMARY | 2023-09-06 10:19 | XMS_ITS | Encounter Summary ---
Author Organization [facility], [facility] [place] [address] Care Team Providers Care Senior Property Accountant Name Role Phone Jinny Camacho APRN Primary Care Provider [phone] Reason for Referral * Consultation (Routine) - Closed Specialty Diagnoses / Procedures Referred By Zoya t Referred To Contact Vascular Surgery Diagnoses Occlusion and stenosis of unspecified carotid artery Abnormal findings on diagnostic imaging of body structures ROUTINE, NEW PATIENT, B CAR DUP - carotid stenosis OSH duplex carotid bruit, LEGAL AID / [place] / Jinny Castle APRN [address] [place] [address] [facility] [address] [place] [address] Referral ID Status Reason Start Date Expiration Date V isits Requested Visits Authorized [id number] Closed Consult, Test & Treat PCP Updated and/or Approved 01/24/2022 01/24/2023 6 6 Encounter Details Date Type Department Care Team (Latest Contact Info) Description 01/24/2022 Transcribe Orders eDH Incoming Referrals [phone] Jinny Camacho APRN [address] [place], [place] [id number] Occlusion and stenosis of unspecified carotid artery; Abnormal findings on diagnostic imaging of body structures Social History Tobacco Use Types Packs/Day Years Used Date Smoking Tobacco: Former Smokeless Tobacco: Never Comments:quit in her 50 's Sex and Gender Information Value Date Recorded Sex Assigned at Not on file Gender Identity Not on file Sexual Orientation Not on file documented as of this encounter Plan of Treatment Scheduled Referrals Name Type Priority Associated Diagnoses Orde r Schedule Referral to Vascular Surgery Outpatient Referral Routine Occlusion and stenosis of unspecified carotid artery Abnormal findings on diagnostic imaging of body structures Ordered: 01/24/2022 documented as of this encounter Visit Diagnoses Diagnosis Occlusion and stenosis of unspecified carotid artery Abnormal findings on diagnostic imaging of body structures documented in this encounter Care Teams Senior Property Accountant Relationship Specialty Start Date End Date Jinny Camacho, RISK MANAGEMENT INTERN [address] [place] [place] [address] PCP - General Internal Medicine 10/04/19 documented as of this encounter
--- OUTSIDE RECORDS SUMMARY | 2023-09-06 10:19 | XMS_ITS | Encounter Summary ---
Author Organization [facility] Address [address] [place] [address] Care Team Providers Care Fitting Room Checker Name Role Phone JaniceJinny cox INSPECTOR BALL POINTS Primary Care Provider [phone] Reason for Visit * Auth/Cert Specialty Diagnoses / Procedures [facility] Referred To Contact Diagnoses Basal cell carcinoma (BCC) of right upper eyelid Basal cell carcinoma (BCC) of right upper eyelid [C44.1121] Procedures MI ADJ TISS XFER LID,NOS,EAR <10 SQCM MI REPAIR TEAR DUCTS Repair of RIGHT eyelid/Medial Carthus MOHS defect with tissue rearrangement. Possible stent placement for Repair of lacrimal drainage system PLASTIC REPAIR, CANALICULI Referral ID Status Reason Start Date Expiration Date Visits Re quested Visits Authorized [id number] 12/10/2021 02/22/2022 1 1 Encounter Details Date Type Department Care Team (Late st Contact Info) Description 12/10/2021 11:06 EDT - 12/10/2021 16:00 EDT Hospital Encounter [facility] Operating Room [address] [place] [address] Whitley Elias MD [address] [facility], [address] [place] [address] Discharge Disposition: Home or Self Care Social History Tobacco Use Types Packs/Day Years [...] Sign Reading Time Taken Comments Blood Pressure 150/88 12/10/2021 1540 EDT Pulse - - Temperature 37 ??C (98.6 ??F) 12/10/2021 1540 EDT Respiratory Rate 20 12/10/2021 1540 EDT Oxygen Saturation 94% 12/10/2021 1540 EDT Inhaled Oxygen Concentration - - Weight 67.7 kg (149 lb 4 oz) 12/10/2021 1142 EDT Height 160 cm (5' 3) 12/10/2021 1142 EDT Body Mass Index 26.44 12/10/2021 1142 EDT documented in this encounter Discharge Instructions * Discharge Instructions* Evonne Osullivan RN - 12/10/2021 15:12 EDT - Leave patch in place for 24 hours. You may remove it then. - You may shower after 24 hours and get incisions wet (wash face like usual) after patch removal - For 3 days, no heavy lifting or heavy activity including running; no bending below the waist. - No eye rubbing - No makeup wear - Use prescribed ointment on wounds 3 times a day after patch removal - Use ice over the wounds for 15 minutes of every 1-2 hours you are awake for the first 48 hours after patch removal. - Take Tylenol 650mg by mouth every 4-6 hours as needed for pain control (not to exceed a total of 4000mg in 24 hours) Due @ 9:15pm - Follow up in 1-[address] Elias (if unsure of appointment time, call [phone]) - If you have decreasing vision, uncontrollable pain, or significant bleeding call [phone] [address]Dr[address] Elias documented in this encounter Medications at Time of Discharge Medication Sig Dispensed Refills Start Date End Date atorvastatin (LIPITOR) 10 mg tablet Take 1 Tablet by mouth daily. carvedilol (COREG) 3.125 mg tablet Take 1 Tablet by mouth 2 times daily with breakfast and dinner. FLUoxetine (PROZAC) 10 mg capsule Take 1 Capsule by mouth daily. furosemide (LASIX) 20 mg tablet Take 1 Tablet by mouth 2 times daily. lisinopriL (PRINIVIL) 10 mg tablet Take 10 mg by mouth daily. methIMAzole (TAPAZOLE) 10 mg tablet Take 1 Tablet by mouth 3 times daily. potassium chloride (KLOR-CON) 20 mEq packet Take 20 mEq by mouth 2 times daily. fsnyyvzp-sgqnsyekq-iitu methasone (MAXITROL) ophthalmic ointment Apply to all wounds 3 times daily for 10 days 3.5 g 1 12/10/2021 05/16/2022 documented as of this encounter Ordered Prescriptions Prescription Sig Dispensed Refills Start Date End Da te icnsuprd-pjipyeqmw-bptxsgc hasone (MAXITROL) ophthalmic ointment Apply to all wounds 3 times daily for 10 days 3.5 g 1 12/10/2021 05/16/2022 tofqbewo-vzxnarlrt-ggwraga hasone (MAXITROL) ophthalmic ointment Apply to all wounds 3 times daily for 10 days 3.5 g 1 12/10/2021 12/10/2021 documented in this encounter Discharge Disposition Disposition Code Departure Means Destination Home or Self Alf documented in this encounter H&P Notes * Whitley Elias MD - 12/10/2021 1115 EDT The preoperative history and physical which was performed within 30 days of this procedure has been reviewed and the clinically appropriate elements of the physical examination have been repeated. There are no changes to the documented history and physical or if so such changes are documented below Whitley Elias MD 12/10/2021 11:49 Source Note - COIL SHAPER, PIPER 2 - 12/09/2021 16:14 EDT documented in this encounter OR Notes * OR Surgeon - Whitley Elias MD - 12/10/2021 1600 EDT Title of surgery: 1. Repair of right medial canthus Mohs defect (2cm x 2cm) with a bilobe flap, an advancement flap from the eyelid (total primary defect size 2cm x 2cm; total secondary defects 2cm x2cm and 2cm x1cm; tertiary defect size 1.5cm x 1.5cm; total size 12cm square) 2. Probing and irrigation of canalicular system, right eye, under general anesthesia ?? Pre-operative diagnosis: Mohs defect, right medial canthus; basal cell carcinoma left medial canthus ?? Post-operative diagnosis: same ?? Surgeon: Whitley Elias MD Bunch Maker Hand: Naz Mcneill ?? Anesthesia: General anesthesia with local 50:50 mixture of 2% lidocaine with 1:100,000 epinephrine and 0.5% marcaine with 1:200,000 epinephrine ?? Surgeon's narrative: Informed consent was obtained from the patient prior to surgery. The patient was greeted in the pre-operative waiting area where the operative site was identified and marked. Thepatient was escorted to the operating room where general anesthesia was induced. The patient was prepped and draped in the usual fashion for ophthalmic plastic surgery. A time out was held. Attention was turned initially to the right lacrimal drainage system. An irrigating cannula with fluorescein containing saline was introduced and advanced into the canaliculus. Irrigation was performed and no violation of the lacrimal drainage system was observed. Attention was then turned to closure of the Mohs defect. A surgical marking pen was used to delineate a bilobed flap superiorly. The area was infiltrated with local anesthetic. A #15 blade was used to incise along the previously marked line. The bilobed flap was elevated with monopolar cautery withcareful attention to remain superficial to the supraorbital neurovascular bundle. The flap was easily rotated into the medial canthal defect. The edges of the secondary and tertiary defects were undermined with Boo scissors. The tertiary defect was closed with deep interrupted 4-0 Vicryl sutures. The flap that was then first sutured into the secondary defect with deep interrupted 4-0 Vicryl sutures. The flap was anchored to the periosteum at the medial canthus with several interrupted 5-0 Vicryl sutures and then secured in place with deep interrupted 4-0 Vicryl sutures. At this point there was still a defect on the medial upper eyelid which could not be easily closed without distorting the eyelid architecture, so the decision was made to fashion an advancement flap using upper eyelid skin. The extent of this flap was delineated with a surgical marking pen and then the area was infiltrated with local anesthetic. A #15 blade was used to incise along the previously marked line and the flap was elevated using forceps and Boo scissors. Hemostasis was maintained throughout with bipolar cautery. The advancement flap was easily advanced to fill the defect in the medial upper eyelid. And was secured in place with a combination of running and interrupted 7-0 chromic in the skin. The remaining skin was then closed with a combination of running and interrupted 5-0 fast sutures. Maxitrol ointment was applied to the incisions and the eye. A pressure dressing was fashioned out of Xeroform, 2 eye pads and Telfa to the wound and secured in place with paper tape. The patient was awoken from anesthesia and escorted to recovery in stable condition. She tolerated the procedure well without complications. documented in this encounter Miscellaneous Notes * Brief Op Note - Whitley Elias MD - 12/10/2021 1600 EDT Date: 12/10/2021 Location: [facility] OR Name: Caitlin Marte, : 1940, Diagnosis Pre-Op Diagnosis Codes: * Basal cell carcinoma (BCC) of right upper eyelid [C44.1121] Post-op Diagnosis * Basal cell carcinoma (BCC) of right upper eyelid [C44.1121] Procedures Repair of right medial canthus Mohs defect, probing and irrigation of lacrimal drainage system. Surgeons * Whitley Elias MD - Primary Procedure Summary Anesthesia: General ASA: II Estimated Blood Loss: minimal LDAs: Wound 12/10/21 Incision Nose Full thickness (Active) [REMOVED] Non-Surgical Airway (Removed) Staff: Retail Sales Associate Seasonal: Obdulia Zhu RN; Arun Sherman RN Scrub Person: Myron Hinton Ophthalmology Tech: Mila Mcneill Indications: Caitlin Marte is an 81 y.o. female who is having surgery for Basal cell carcinoma(BCC) of right upper eyelid [C44.1121] Findings: intact lacrimal drainage system Complications: None; patient tolerated the procedure well. Disposition: PACU - hemodynamically stable. Condition: stable Specimens Collected: No specimens collected during this procedure. Attending Attestation: I was present and scrubbed for the entire procedure Whitley Elias MD * Brief Op Note - Whitley Elias MD - 12/10/2021 1439 EDT Date: 12/10/2021 Location: [facility] OR Name: Caitlin Marte, : 1940, Diagnosis Pre-Op Diagnosis Codes: * Basal cell carcinoma (BCC) of right upper eyelid [C44.1121] Post-op Diagnosis * Basal cell carcinoma (BCC) of right upper eyelid [C44.1121] Procedures * Repair of RIGHT eyelid/Medial Carthus MOHS defect with tissue rearrangement. Possible stent placement for Repair of lacrimal drainage system * PLASTIC REPAIR, CANALICULI Surgeons * Whitley Elias MD - Primary Procedure Summary Anesthesia: General ASA: ASA status not filed in the log. Estimated Blood Loss: minimal Total IV Fluids: 700 mL LDAs: Peripheral IV 12/10/21 1200 Left;Posterior Hand (Active) Non-Surgical Airway (Active) Wound 12/10/21 Incision Nose Full thickness (Active) Staff: Retail Sales Associate Seasonal: Obdulia Zhu RN; Arun Sherman RN Scrub Person: Myron Hinton Ophthalmology Tech: Mila Mcneill Indications: Caitlin Marte is an 81 y.o. female who is having surgery for Basal cell carcinoma(BCC) of right upper eyelid [C44.1121] Findings: right medial canthus defect. Intact lacrimal drainage system Complications: None; patient tolerated the procedure well. Disposition: PACU - hemodynamically stable. Condition: stable Specimens Collected: No specimens collected during this procedure. Attending Attestation: I was present and scrubbed for the entire procedure Whitley Elias MD documented in this encounter Plan of Treatment Upcoming Encounters Date Type Department Care Team (Late st Contact Info) Description 10/27/2023 12:50 EDT Office Visit [facility] Dermatology 3rd Floor [facility] [address], [place] [address] Nikita Kumari PA-C [address] [facility], [address] [place] [address] documented as of this encounter Procedures Procedure Name Priority Date/Time Associated Diagnosis Comments ECG REPORT - SCANNED 12/12/2021 11:43 EDT PLASTIC REPAIR, CANALICULI 12/10/2021 12:00 EDT Basal cell carcinoma (BCC) of right upper eyelid ADJACENT TISSUE TRANSFER, INVOLVING EAR, EYELID, LIP, OR NOSE, DEFECT 10 SQ CM OR LESS 12/10/2021 12:00 EDT Basal cell carcinoma (BCC) of right upper eyelid documented in this encounter Results * ECG REPORT - SCANNED (12/12/2021 11:43 EDT) 12/12/2021 11:4 3 EDT Scan 2 Regional Engineer PROCEDURE/MINOR CHIQUITA GICAL ORDERABLES documented in this encounter Visit Diagnoses Diagnosis Basal cell carcinoma (BCC) of right upper eyelid- Primary documented in this encounter Admitting Diagnoses Diagnosis Basal cell carcinoma (BCC) of right upper eyelid documented in this encounter Administered Medications Inactive Administered Medications - up to 3 most recent administrations Medication Order MAR Action Action Date Dose Rate Site acetaminophen (TYLENOL) tablet 1,000 mg 1,000 mg, oral, PRN, 1 dose, Starting on Thu12/10/21 at 1340, Until Thu12/10/21 at 1514, Pain, Routine, Recovery (only) Given 12/10/2021 15:14 EDT 1,000 mg lactated ringers (LR) infusion at 25 mL/hr, intravenous, CONTINUOUS, Starting on Thu12/10/21 at 1200, Until Thu12/10/21 at 1802, Routine, Preprocedure Restarted 12/10/2021 12:09 EDT New Bag 12/10/2021 12:02 EDT 25 mL/hr documented in this encounter Discontinued Medications Medication Sig Discontinue Reason Start Date End Da te eewdusfz-jatwuqdxt-okz amethasone (MAXITROL) ophthalmic ointment Apply to all wounds 3 times daily for 10 days Reorder 12/10/2021 12/10/2021 erythromycin (ROMYCIN) 5 mg/gram (0.5 %) ophthalmic ointment Apply to right eyelid stitches and right cheek 3 times a day for 1 week Stop Taking at Discharge 09/24/2021 12/10/2021 documented as of this encounter Active and Recently Administered Medications Times are shown in EDT. Scheduled Medication Order 12/08/2021 12/09/2021 12/10/2021 ceFAZolin (ANCEF) syringe 2 g (COMPLETED) 2 g, intravenous, Administer over 5 Minutes, PRE-OP ONCE, 1 dose, On Thu12/10/21 at 1215, Routine, Preprocedure 1220 (Given - Provid er: WILLIAN Partida) Continuous Medication Order 12/08/2021 12/09/2021 12/10/2021 lactated ringers (LR) infusion at 25 mL/hr, intravenous, CONTINUOUS, Starting on Thu12/10/21 at 1200, Until Thu12/10/21 at 1802, Routine, Preprocedure 1202 (New Bag - Prov ider: Claudine Orlando RN)1208 (Paused - Provider: WILLIAN Partida - Comment: Switch to gravity)1209 (Restarted - Provider: WILLIAN Partida)1451 (Anesthesia Volume Adjustment - Provider: WILLIAN Partida) PRN Medication Order 12/08/2021 12/09/2021 12/10/2021 acetaminophen (TYLENOL) tablet 1,000 mg (COMPLETED)(Linked Group 1) 1,000 mg, oral, PRN, 1 dose, Starting on Thu12/10/21 at 1340, Until Thu12/10/21 at 1514, Pain, Routine, Recovery (only) 1514 (Given - Provid er: Evonne Osullivan RN) balanced salts (BSS) ophthalmic solution (CANCELED) PRN, Starting on Thu12/10/21 at 1342, Until Thu12/10/21 at 1442, Routine, Intraprocedure 1342 (Given - Provid er: Whitley Elias MD) bupivacaine-EPINEPHrine (PF) 0.5 %-1:200,000 injection (CANCELED) PRN, Starting on Thu12/10/21 at 1340, Until Thu12/10/21 at 1442, Routine, Intraprocedure 1340 (Given - Provid er: Whitley Elias MD) uytyftye-qdmhetzkp-nyhgktobvlfdo (MAXITROL) ophthalmic ointment (CANCELED) PRN, Starting on Thu12/10/21 at 1342, Until Thu12/10/21 at 1442, Intraprocedure 1342 (Given - Provid er: Whitley Elias MD) oxymetazoline (AFRIN) 0.05 % nasal spray (CANCELED) PRN, Starting on Thu12/10/21 at 1341, Until Thu12/10/21 at 1442, Routine, Intraprocedure 1341 (Given - Provid er: Whitley Elias MD - Comment: to soak cottonoids 30 ml bottle) sodium chloride 0.9 % irrigation (CANCELED) PRN, Starting on Thu12/10/21 at 1341, Until Thu12/10/21 at 1442, Routine, Intraprocedure 1341 (Given - Provid er: Whitley Elias MD) Linked Groups Order Group 1: acetaminophen (TYLENOL) solution unit dose cup 995 mg (COMPLETED) 995 mg (rounded from 1,000 mg), oral, PRN, 1 dose, Starting on Thu12/10/21 at 1340, Until Thu12/10/21 at 1514, Pain, Routine, Recovery (only) Or acetaminophen (TYLENOL) tablet 1,000 mg (COMPLETED)Jump to med 1,000 mg, oral, PRN, 1 dose, Starting on Thu12/10/21 at 1340, Until Thu12/10/21 at 1514, Pain, Routine, Recovery (only) documented in this encounter Orders Medications Ordered That Jamel ht Not Have Been Administered Count Last Ordered Date First Ordered Date acetaminophen (TYLENOL) solu tion unit dose cup 995 mg 1 12/10/2021 atropine 0.1 mg/mL syringe 0.5 mg 1 022 balanced salts (BSS) ophthalmic solution 1 12/10/2021 bupivacaine-EPINEPHrine (PF) 0.5 %-1:200,000 injection 1 12/10/2021 ceFAZolin (ANCEF) syringe 2 g 1 12/10/2021 fentaNYL citrate (PF) injection 25-50 mcg 1 12/10/2021 lactated ringers (LR) infusion 1 12/10/2021 naloxone (NARCAN) injection 0.2 mg 1 2021 lgztakfd-kqhgngxkl-yatogebaj sone (MAXITROL) ophthalmic ointment 1 12/10/2021 ondansetron (PF) (ZOFRAN) injection 4 mg 1 12/10/2021 oxymetazoline (AFRIN) 0.05 % nasal spray 1 12/10/2021 sodium chloride 0.9 % irrigation 1 12/11/19 Discharge Count Last Ordered Date First Orde red Date DISCHARGE PATIENT 1 12/10/2021 documented in this encounter Care Teams Fitting Room Checker Relationship Specialty Start Date End Date Jinny Camacho NP [address] [place] [address] PCP - General Family Medicine - Primary Care 12/03/21 documented as of this encounter
--- OUTSIDE RECORDS SUMMARY | 2023-09-06 10:19 | XMS_ITS | Encounter Summary ---
Author Organization [facility] Address [address] [place] [address] Care Team Providers Care School Bus Technician Name Role Phone JaniceJinny cox DICER MACHINE OPERATOR Primary Care Provider [phone] Reason for Visit * Reason Onset Date Comments Appointment Related 01/21/2022 Encounter Details Date Type Department Care Team (Late st Contact Info) Description 01/21/2022 Telephone [facility] Dermatology 3rd Floor [address] [id number] Dodie Patricia MD [address] [facility], [address] [place] [address] Appointment Related Social History Tobacco Use Types [...] encounter Miscellaneous Notes * Telephone Encounter - Kiana Munoz - 03/04/2022 0914 EST Patient returned call, and is scheduled for 04/15/22 * Telephone Encounter - Timothy Leroy MA - 02/06/2022 1257 EST Patient will call back to reschedule her MOHS BCC right medial cheek. Any unavailable MOHS spots inJanuary. First available looks like 03/12/22 @ 8:00. TIMOTHY LEROY MA 02/06/2022 12:58 * Telephone Encounter - Janice Hoyt - 01/21/2022 1001 EST Patient had an appt. For a Mohs for a BCC on 01/23/[address] Patricia. She canceled it, but would like someone to give her a call back to reschedule. documented in this encounter Plan of Treatment Upcoming Encounters Date Type Department Care Team (Late st Contact Info) Description 10/27/2023 12:50 EDT Office Visit [facility] Dermatology 3rd Floor [facility] [address], [place] [address] Nikita Kumari PA-C [address] [facility], [address] [place] [phone] documented as of this encounter Visit Diagnoses Not on filedocumented in this encounter Care Teams School Bus Technician Relationship Specialty Start Date End Date Jinny Camacho NP [address] [place] [id number] PCP - General Family Medicine - Primary Care 12/03/21 documented as of this encounter
--- OUTSIDE RECORDS SUMMARY | 2023-09-06 10:19 | XMS_ITS | Referral Summary ---
Author Organization [facility] Address [address] [place] [address] Care Team Providers Care Esthetician/Spa Coordinator Name Role Phone JaniceJinny FILER METAL PATTERNS Primary Care Provider Allergies No known active [...] Overview: Added automatically from request for surgery [id number] Social History Tobacco Use Types Packs/Day Years [...] 11:01 EDT Sexual Orientation Not on file Last Filed [...] Body Mass Index 26.44 12/10/2021 1142 EDT Functional Status Functional Status Response Date of [...] concentrating, remembering, or making decisions? No 12/10/2021 Plan of Treatment Upcoming Encounters Date Type Department Care Team (Late st Contact Info) Description 10/27/2023 12:50 EDT Office Visit [facility] Dermatology 3rd [place] [address] Nikita Kumari, PARogeC [address] [facility], [address] [place] [phone] Care Teams Esthetician/Spa Coordinator Relationship Specialty Start Date End Date Jinny Camacho NP [address] [place] [id number] PCP - General Family Medicine - Primary Care 12/03/21
--- OUTSIDE RECORDS SUMMARY | 2023-09-06 10:19 | XMS_ITS | Encounter Summary ---
Author Organization [facility] [place] [address] Care Team Providers Care Timber Mill Worker Name Role Phone Jinny Camacho APRN Primary Care Provider [phone] Encounter Details Date Type Department Care Team (Late st Contact Info) Description 11/12/2022 Orders Only [place] [address] Gurdeep Duenas MD [facility] [place] [address] Graves disease Social History Tobacco Use Types Packs/Day Years Used Date Smoking Tobacco: Former Smokeless Tobacco: Never Comments:quit in her 50 's Sex and Gender Information Value Date Recorded Sex Assigned at Not on file Gender Identity Not on file Sexual Orientation Not on file documented as of this encounter Plan of Treatment Scheduled Orders Name Type Priority Associated Diagnoses Orde r Schedule TSH Lab Routine Graves disease Expected: 11/12/2022 (Approximate), Expires: 11/13/2023 T4, free Lab Routine Graves disease Expected: 11/12/2022 (Approximate), Expires: 11/13/2023 T3 Total Lab Routine Graves disease Expected: 11/12/2022 (Approximate), Expires: 11/13/2023 documented as of this encounter Visit Diagnoses Diagnosis Graves disease Toxic diffuse goiter without mention of thyrotoxic crisis or storm documented in this encounter Care Teams Timber Mill Worker Relationship Specialty Start Date End Date Jinny Camacho APRN [address] [place] [address] PCP - General Internal Medicine 10/04/19 documented as of this encounter
--- OUTSIDE RECORDS SUMMARY | 2023-09-06 10:19 | XMS_ITS | Encounter Summary ---
Author Organization [facility] Address [address] [place] [address] Care Team Providers Care Twister Hand Name Role Phone Unknown, Provider Primary Care Provider [phone] Jinny Camacho MARINE PAINTER Primary Care Provider [phone] Encounter Details Date Type Department Care Team (Late st Contact Info) Description 11/04/2019 Lab Requisition [facility] Pathology & Laboratory Medicine - [address] [address] Outr Resulting Lab, Provider Social History Tobacco [...] Description 10/27/2023 12:50 EDT Office Visit [facility] Dermatology 3rd Floor [address] [id number] Nikita Kumari PA-C [address] [place] [address], [address] [place] [phone] documented as of this encounter Procedures Procedure Name Priority Date/Time Associated Diagnosis Comments ZZCOVID-19 TEST [facility] PCR Today 11/04/2019 20:46 EDT COVID-19 TESTING Routine 11/04/2019 20:4 6 EDT documented in this encounter Results * COVID-19 TEST [facility] PCR (11/04/2019 20:46 EDT) Swab ENTIRE NASOPHARYNX / Unknown 11/04/2019 20:46 EDT 11/05/2019 9:20 EDT Provider Outr Resulting Lab MICROBIOLOGY - GENERAL ORDERABLES Performing Organization Address City/[facility]/ZIP Co de Phone Number [facility] [address] [place] [address] * COVID-19 TESTING (11/04/2019 20:46 EDT) COVID-19 rt-PCR Result Negative Negative 11/05/2019 12:[address] [facility] Comment: This test has not been FDA cleared or approved. This test has been authorized by FDA under an EUA for use by authorized laboratories. This test has been authorized only for detection of nucleic acid from 2019-nCoV, not for any other viruses or pathogens. This test is only authorized for the duration of the declaration that circumstances exist justifying the authorization of emergency use of in vitro diagnostic tests for detection and/or diagnosis of 2019-nCoV under section 564(b)(1) of Act, 21 U.S.C ?? 360bbb-3(b) (1), unless the authorization is terminated or revoked sooner. Negative results do not preclude 2019-nCoV infection and should not be used as the sole basis for treatment or other patient management decisions. Negative results must be combined with clinical observations, patient history, and epidemiological information. Performed on the [employer] Fusion instrument Performing Lab [place] [facility] 11/05/2019 12:[address] [facility] Swab 11/04/2019 20:4 6 EDT 11/05/2019 9:20 EDT Provider Outr Resulting Lab MICROBIOLOGY - GENERAL ORDERABLES Performing Organization Address [facility]/ZIP Co de Phone Number [facility] [address] [place] [address] documented in this encounter Visit Diagnoses Not on filedocumented in this encounter Care Teams Twister Hand Relationship Specialty Start Date End Date Unknown, Provider, PCP - General 01/25/21 12/02/21 Jinny Camacho NP [address] [place] [address] PCP - General Family Medicine - Primary Care 12/03/21 documented as of this encounter
--- OUTSIDE RECORDS SUMMARY | 2023-09-06 10:19 | XMS_ITS | Encounter Summary ---
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 Do not let the shower stream hit the wound directly. If you bathe in a tub, the bath should be brief. Pat wound dry. Apply a thin layer of vaseline to the wound. Cover wound with a Band-Aid or a non-stick gauze pad and secure with tape. Continue doing wound care until there is no more drainage. It is an old wives' tale that a wound heals faster if it is exposed to air and allowed to dry out. The wound will heal faster and with a better cosmetic result if it is kept moist with ointment and covered with a bandage. Do not let the wound dry out. If the procedure required sutures, the suture line will be dark pink at first and the edges of the wound will be reddened. This will lighten up day by day and will be less tender. The suture line mayalso be firm, especially on the lip/chin area and will also fade with time. It may take up to 6-12 months for redness and firmness to fade. Numbness in the surgical area is expected. It might take 12-18 months for the feeling to return to normal. During this time, sensations of itchiness, tingling, and occasional sharp pains might be noted. These feelings are normal and will subside once the nerves have completely healed. Begin to massage the area 6 weeks after surgery. Massaging the area will help the scar soften and fade quicker. To massage, apply pressure directly and firmly over the scar with the fingertips and move lengthwise along the scar or in a circular motion. Massage the area for up to 10 minutes several times a day. About 6-8 weeks after surgery it is not uncommon to see tender 'pimple-like' bumps along the scar. This is normal as the scar continues to mature and the stitches underneath the skin begin to dissolve. Do not pick or squeeze - this will resolve on its own. Should one break open producing a small amount of drainage, apply polysporin or bacitracin ointment a few times a day until it is completely healed. CONTACT THE OFFICE If the wound becomes increasingly red, warm to touch, increased pain, drainage with a foul odor, rapid swelling of the wound, and/or if you develop a fever or chills, please call our office immediately or . documented in this encounter Progress Notes * Kim Maravilla RN - 05/16/2022 1330 EDT Images from the original note were not included. WOUND ASSESSMENT CC: Chief Complaint Patient presents with ??? Wound Check Right cheek, left chin Ms. Marte is status post MOHS of basal cell carcinoma on the right cheek with complex linear repair and MOHS of basal cell carcinoma on the left chin with intermediate linear repair on 04/15/22 by Dodie Patricia MD, Domingo Hawley MD, and Jonn Nolasco MD. SUBJECTIVE: Patient reports itching. OBJECTIVE: There were no vitals taken for this visit. Wound edges: healed Wound Site: pink and no signs of infection Drainage: none PLAN: Wound cleaned: normal saline and chlorohexidine (hibiclens, chloraprep) Dressing: Vaseline applied and skin left open to air MD/DANDRE consulted No. However, wound check assessment note and updated photos shared with MD Hao, Domingo Hawley MD, and Jonn Nolasco MD. FOLLOW UP No follow-up appointments scheduled. Will consult Dodie Patricia MD regarding need for a follow-up appointment. Wound care instructions given to patient Note: I was supervised by Teto Tate MD who was present and immediately available in the office suite. KIM MARAVILLA RN 05/16/2022 14:08 documented in this encounter Plan of Treatment Upcoming Encounters Date Type Department Care Team (Late st Contact Info) Description 10/27/2023 12:50 EDT Office Visit [facility] Dermatology 3rd Floor [address] [address] Nikita Kumari PA-C [address] [facility], [address] [place] [address] documented as of this encounter Visit Diagnoses Diagnosis Basal cell carcinoma (BCC) of chin- Primary Basal cell carcinoma (BCC) of right cheek documented in this encounter Discontinued Medications Medication Sig Discontinue Reason Start Date End Da te poezwsyt-yfphdzxhs-trjjw ethasone (MAXITROL) ophthalmic ointment Apply to all wounds 3 times daily for 10 days Therapy completed 12/10/2021 05/16/2022 documented as of this encounter Care Teams Clinical Lab Clerk Relationship Specialty Start Date End Date Jinny Camacho NP [address] [place] [address] PCP - General Family Medicine - Primary Care 12/03/21 documented as of this encounter
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
--- OUTSIDE RECORDS SUMMARY | 2023-09-06 10:19 | XMS_ITS | Encounter Summary ---
Author Organization [facility] Address [address] [place] [address] Care Team Providers Care Wellness Program Coordinator Name Role Phone Jinny Camacho LENS MATCHER Primary Care Provider [phone] Reason for Visit * Reason Comments Basal Cell Carcinoma right medial canthu s * Auth/Cert Specialty Diagnoses / Procedures Referred By Zoya t Referred To Contact Diagnoses Basal cell carcinoma (BCC) of right upper eyelid Basal cell carcinoma (BCC) of right upper eyelid [C44.1121] Procedures UT ADJ TISS XFER LID,NOS,EAR <10 SQCM UT REPAIR TEAR DUCTS Repair of RIGHT eyelid/Medial Carthus MOHS defect with tissue rearrangement. Possible stent placement for Repair of lacrimal drainage system PLASTIC REPAIR, CANALICULI Referral ID Status Reason Start Date Expiration Date Visits Re quested Visits Authorized [id number] 12/10/2021 02/22/2022 1 1 Encounter Details Date Type Department Care Team (Late st Contact Info) Description 12/10/2021 8:30 EDT Office Visit [facility] Dermatology 5th Floor [address] [phone] Dodie Patricia MD [address] [facility], [address] [place] [phone] Basal cell carcinoma (BCC) of canthus of right eye (Primary Dx) Social History Tobacco Use Types [...] Sign Reading Time Taken Comments Blood Pressure 130/71 12/10/2021 0821 EDT Pulse 82 12/10/2021 0821 EDT Temperature - - Respiratory Rate - - [...] * Patient Instructions* Franchesca Leroy MA - 12/10/2021 8:[address] Elias will provide after care. documented in this encounter Progress Notes * Domingo Hawley MD - 12/10/2021 0830 EDT Images from the original note were not included. MOHS SURGERY POST-OP SUMMARY Caitlin Marte is a 81 y.o. year old female who underwent Mohs surgery today 12/09/2021. The following is a summary of the operative findings: Lesion 1 Basal cell carcinoma (BCC) Location right Medial canthus Size Preop (cm) 1.5 cm x 1.3 cm Size Postop (cm) 2.1 cm x 1.7 cm Stages 1 Depth of Excision periosteum Repair With oculoplastics (Dr.Libby Elias) Ms. Marte was discharged from the operative suite in good condition. She was carefully instructedin postoperative wound care both verbally and in writing. The patient will return for follow up as needed. I thank Dr. Elias for involving me in this patient's care. Dodie Patricia MD Dermatology & Mohs Surgery tack coverer, Dermatology Division [facility] 12/10/2021 16:59 MOHS OPERATIVE REPORT Patient Name: Caitlin Marte Date of Service: December 09, 2021 Surgeon and Pathologist: Dodie Patricia MD Vice President Mission Integration: Domingo Hawley MD Case #: [id number] Mohs AUC Score: 9 (APPROPRIATE) Preoperative Diagnosis: Basal cell carcinoma (BCC) Preoperative Procedure: Mohs micrographic surgery Location of Lesion: right Medial canthus Preoperative Lesion Size: 1.5 cm x 1.3 cm Preoperative Procedure: Mohs microscopically-controlled fresh tissue [...] with epinephrine 1:100,000 local infiltration Prep: Chlorhexidine No data found. The patient was brought to the operative [...] handed personally by the doctor to the truck technician for frozen sectioning. The tissue was embedded so that the deep and surface margins layin the same plane, and sections were made through this plane. Once the slide preparation was complete Dr. Patricia performed histologic evaluation and interpretation of all sections. A summary of the findings may be found below. Stage 1 findings: Wound depth periosteum Sections created 2 Number of sections containing [...] surgery was considered complete. The wound was REFFERED to Dr. Elias (oculoplastics) for reconstruction. Please see their separate procedure note for details of the reconstruction. Postoperative Wound Size: 2.1 cm x 1.7 cm Final Diagnosis: Basal cell carcinoma (BCC) Final Procedure: Mohs micrographic surgery Blood Loss: Minimal Operative Time: 15 minutes Complications: None Note: None The attending physician performed the procedure. Attestation statement: I performed or was present during the nick or critical portions of the visit and participated in the management of the patient. I agree with the findings and plan of care documented in the resident's/fellow's note. Dodie Patricia MD Dermatology & Mohs Surgery tack coverer, Dermatology Division [facility] 12/10/2021 17:00 documented in this encounter Plan of Treatment Upcoming Encounters Date Type Department Care Team (Late st Contact Info) Description 10/27/2023 12:50 EDT Office Visit [facility] Dermatology [address] [facility] [address] [place] [address] Nikita Kumari PA-C 111 [facility], [facility], [facility] [address] [place] [address] documented as of this encounter Procedures Procedure Name Priority Date/Time Associated Diagnosis Comments PROCEDURE REPORTS - SCANNED 12/17/2021 13:33 EDT documented in this encounter Results * PROCEDURE REPORTS - SCANNED (12/17/2021 13:33 EDT) 12/17/2021 13:3 3 EDT Scan 2 Executive Assistant To General Counsel PROCEDURE/MINOR CHIQUITA GICAL ORDERABLES documented in this encounter Visit Diagnoses Diagnosis Basal cell carcinoma (BCC) of canthus of right eye- Primary documented in this encounter Care Teams Wellness Program Coordinator Relationship Specialty Start Date End Date Jinny Camacho NP [address] [place] [address] PCP - General Family Medicine - Primary Care 12/03/21 documented as of this encounter
--- OUTSIDE RECORDS SUMMARY | 2023-09-06 10:19 | XMS_ITS | Encounter Summary ---
Author Organization [facility] Address [address] [place] [address] Care Team Providers Care Transport Pilot Name Role Phone JaniceJinny HEALTH UNDERWRITER Primary Care Provider [phone] Reason for Visit * Reason Comments Post-OP Follow Up Encounter Details Date Type Department Care Team (Late st Contact Info) Description 12/16/2021 12:30 EDT Post-op Visit [facility] Ophthalmology - [address] [phone] Whitley Elias MD 111 [facility], [address] [place] [address] Basal cell carcinoma (BCC) of [...] Progress Notes * Whitley Elias MD - 12/16/2021 1230 EDT Chief Complaint Patient presents with ??? Post-OP Follow Up Comments 1 week post-op eval s/p repair of RIGHT eyelid / Medial Carthus MOHS defect with tissue rearrangement on 12/10/21 -- She is compliant using Maxitrol naina TID to affected area, however forgot to use today. She has some bruising beneath both eyes, getting better the last couple of days. Pt denies any pain, the sutures feel a little irritating. HPI The patient is a 81 y.o. female who is POW#1 s/p reapir of a Mohs defect of the right lateral canthus. ROS Constitutional: ENT/Mouth Cardiovascular: High Blood Pressure, High Cholesterol Respiratory: Gastrointestinal: Genitourinary: Musculoskeletal: Integumentary: (BCC removal) Neurologic: Psychiatric: Endocrine: Hematologic: Immunologic: NL Steaming Cabinet Tender: Exposures: Other: Attestation: Allergies include: Patient has no known allergies. Patient Active Problem List Diagnosis ??? Basal cell carcinoma (BCC) of right upper eyelid Outpatient Medications Marked as Taking for the 12/16/21 encounter (Post-op Visit) with Whitley Elias MD [...] mg by mouth 3 times daily. ??? kxmjanuz-ubuchbiiy-fottrsyvmqdki (MAXITROL) ophthalmic ointment Apply to all wounds 3 times daily for 10 days ??? potassium chloride (KLOR-CON) 20 mEq packet Take 20 mEq by mouth 2 times daily. Base Eye Exam Visual Acuity (Snellen - Linear) Right Left Dist sc 20/60 -1 20/30 -1 Dist ph sc 20/50 -2 Tonometry (Tonopen 95%, 12:43) Right Left Pressure 15 13 Pupils Dark Light Shape APD Right 3 2 Round None Left 3 2 Round None Neuro/Psych Oriented x3: Yes Mood/Affect: Normal Slit Lamp and Fundus Exam External Exam Right Left External incisions intact with some crustin Slit Lamp Exam Right Left Lids/Lashes flaps intact and viable. ecchymosis, edema Conjunctiva/Sclera White and quiet Cornea Clear Anterior Chamber Deep and quiet Iris Round and reactive DIAGNOSTIC TESTS: IMPRESSION & PLAN: Encounter Diagnosis Name Primary? Basal cell carcinoma (BCC) of right upper eyelid Yes 1. Basal cell carcinoma (BCC) of right upper eyelid POW#1 s/p repair of right medial canthus Mohs defect with a rotational and advancement flap. Doing well. Continue ointment for 3-4 more days, then switch to vaseline. Follow up in 1 month I have reviewed the patient's past medical, family, social and surgical history. I have also reviewed the patient's medications, allergies, and problem list. I performed my own HPI and have reviewed the tech's ROS as well. I personally completed this exam myself. Whitley Elias MD The patient was instructed to call our office or go to emergency room if worse vision, worse symptoms, or new/other concerns arise. documented in this encounter Plan of Treatment Upcoming Encounters Date Type Department Care Team (Late st Contact Info) Description 10/27/2023 12:50 EDT Office Visit [facility] Dermatology 3rd Floor [address] [phone] Nikita Kumari PA-C 111 [facility], [address] [place] [address] documented as of this encounter Visit Diagnoses Diagnosis Basal cell carcinoma (BCC) of right upper eyelid- Primary documented in this encounter Eye Exam Visual Acuity (Snellen - Linear) Right eye Left eye Dist sc 20/60 -1 20/30 -1 Dist ph sc 20/50 -2 Tonometry (Tonopen 95%, 12:43) Right eye Left eye Pressure 15 13 Pupils Dark Light Shape APD Right eye 3 2 Round None Left eye 3 2 Round None Neuro/Psych Oriented x3: Yes Mood/Affect: Normal External Exam Right eye Left eye External incisions intact with some crust ing Slit Lamp Exam Right eye Left eye Lids/Lashes flaps intact and viable. ecchymo sis, edema Conjunctiva/Sclera White and quiet Cornea Clear Anterior Chamber Deep and quiet Iris Round and reactive Care Teams Transport Pilot Relationship Specialty Start Date End Date Jinny Camacho, GHAZALA [address] [place] [address] PCP - General Family Medicine - Primary Care 12/03/21 documented as of this encounter
--- OUTSIDE RECORDS SUMMARY | 2023-09-06 10:19 | XMS_ITS | Encounter Summary ---
Author Organization [facility] Address [address] [place] [address] Care Team Providers Care Nurse Staff Industrial Name Role Phone Unknown, Provider Primary Care Provider [phone] Jinny Camacho EMAIL MARKETING SPECIALIST Primary Care Provider [phone] Encounter Details Date Type Department Care Team (Late st Contact Info) Description 06/06/2020 Lab Requisition [facility] Pathology & Laboratory Medicine - [address] [address] Outr Resulting Lab, Provider Social History Tobacco Use Types Packs/Day Years Used Date Smoking Tobacco: Never Assessed Interpersonal Safety Answer Date Record ed Physically [...] [facility] Dermatology 3rd Floor [address] [phone] Nikita Kumari PA-C 111 [facility], [facility] [address] [place] [phone] documented as of this encounter Procedures Procedure Name Priority Date/Time Associated Diagnosis Comments T3, TOTAL Routine 06/06/2020 10:27 EDT documented in this encounter Results * T3, TOTAL (06/06/2020 10:27 EDT) T3, Total 131 97 - 169 ng/dL 06/06/2020 17:09 EDT [facility] Blood VENOUS BLOOD / Unknown 06/06/2020 10:27 EDT 06/06/2020 16:22 EDT Provider Outr Resulting Lab CHEMISTRY & BLOOD GAS ORDERABLES [facility] [address] [place] [address] documented in this encounter Visit Diagnoses Not on filedocumented in this encounter Care Teams Nurse Staff Industrial Relationship Specialty Start Date End Date Unknown, Provider, PCP - General 01/25/21 12/02/21 Jinny Camacho NP [address] [place] [address] PCP - General Family Medicine - Primary Care 12/03/21 documented as of this encounter
--- OUTSIDE RECORDS SUMMARY | 2023-09-06 10:19 | XMS_ITS | Encounter Summary ---
Author Organization [facility] Address [address] [place] [address] Care Team Providers Care Jewel Inspector Name Role Phone JaniceJinny SERVICES PROGRAM MANAGER Primary Care Provider [phone] Reason for Visit * Reason Onset Date Comments Appointment Related 01/21/2022 Encounter Details Date Type Department Care Team (Late st Contact Info) Description 01/21/2022 Telephone [facility] Ophthalmology - [address] [id number] Whitley Elias MD [address] [facility], [address] [place] [address] Appointment Related Social History Tobacco [...] * Telephone Encounter - Erwin Hernandez - 01/24/2022 1207 EST Called and LMOM for patient to call back and be scheduled with Dr. Elias in February * Telephone Encounter - Maximo Salas RN - 01/23/[address] Elias, okay to wait uin February. Dr Elias recommends that patient keep up with her Dermatology appointments as well. Maximo Salas RN 01/23/2022 10:54 * Telephone Encounter - Trevon Broussard - 01/22/2022 0835 EST Patient called at 17:51 through PAS to cancel 01/23 post op. * Telephone Encounter - Maximo Salas RN - 01/22/[address] Elias to review. Maximo Salas RN 01/22/2022 7:48 * Telephone Encounter - Mila Honeycutt - 01/21/2022 1004 EST Pt says she cannot make her 1 month pov next week and wants to postpone out to February. Pt says sheis doing fine, any would be open to a phone conversation if we wanted to know more about how she isdoing, but cannot come to her POV at this time. documented in this encounter Plan of Treatment Upcoming Encounters Date Type Department Care Team (Late st Contact Info) Description 10/27/2023 12:50 EDT Office Visit [facility] Dermatology 3rd Floor [address] [address] Nikita Kumari PA-C [address] [facility], [address] [place] [phone] documented as of this encounter Visit Diagnoses Not on filedocumented in this encounter Care Teams Jewel Inspector Relationship Specialty Start Date End Date Jinny Camacho NP [address] [place] [id number] PCP - General Family Medicine - Primary Care 12/03/21 documented as of this encounter
--- OUTSIDE RECORDS SUMMARY | 2023-09-06 10:19 | XMS_ITS | Encounter Summary ---
Author Organization [facility] Address [address] [place] [address] Care Team Providers Care Vocational Services Specialist Name Role Phone Unknown, Provider Primary Care Provider Reason for Visit * Reason Comments Mohs Consult medial canthus- Dr. 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 If your appointment is in the morning, plan to be here most of the day. Surgery appointment times are approximate. We do our best to remain on time, but surgery is unpredictable and your surgery may be delayed on occasion by up to an hour. If your appointment is at 1pm, plan to be here until theend of the day, or possibly longer if your surgery is extensive. Do not schedule any appointments, work or social events later that day. Depending on the extent of the surgery and the lab time, it may take several hours just to remove the cancer, and then another 1-2 hours to do the stitching. You will have some downtime while we are waiting for slides to be prepared, so please bring a book, crosswords knitting, etc. We also have wireless internet. ?? The entire procedure is performed with local numbing medicine/anesthesia. You will not be put tosleep for the procedure, so please eat breakfast or lunch before your appointment and take any normal medications you usually take unless told not to. There will be a few snacks available, but if youwant to eat/drink anything else feel free to bring that with you. (If you are having an eye surgeonperform your repair, then refer to their preoperative instructions because they may want you to be fasting). ?? We recommend bringing a support person with you to your appointment, especially if it will be a large surgery on your face or near your eyes (or at least have someone available to call should you not feel up to driving home). You will be tired and the area may start to become sore before you leave. We usually recommend acetaminophen/Tylenol combined with ibuprofen/Advil for pain because together they are very effective (more than either alone). Plan not to be alone for at least 12 hours after surgery, if possible. ?? Plan to take it easy for several days after your surgery. We recommend no heavy lifting, exercise or anything that increases your heart rate much for 48 hours after surgery (due to the increased risk of bleeding). Avoiding any exercise routine for the remainder of that 1st week is a good idea. If possible, take at least 2 days off from work because you will be wearing a bulky bandage and may have swelling/bruising for several days afterward. ?? If you are taking Vitamin E, garlic, gingko, or ginseng please discontinue these one week prior to surgery. Additionally, if you take baby aspirin for preventative reasons only, please discontinueit for 10 days before surgery and don't resume taking it for 2 days after surgery. All of these cancause bleeding. ?? Several physician assistants, a Mohs Surgery fellow, and a resident or medical student often work with the surgeon. They often perform the numbing/local anesthesia prior to surgery, assist the surgeon with the Mohs procedure, etc. If they perform any suturing they have experience and are very skilled. The surgeon will be overseeing the entire procedure. ?? Wear comfortable slip-on shoes to your appointment if you have them. Comfortable clothes that button and do not need to be pulled over your head are also a good idea. Do not wear your favorite shirt or white/light clothing if you can avoid it. Note that the surgery will take place on the 5th floor of [place] [address] in the [facility]. If you would like, bring your own music (iPod with headphones, etc) for listening during the procedure. For additional information and a video on Mohs surgery please visit the following website from the [employer] please visit the following website from the [employer]: [email or web address] Here's an additional video from the [employer]: [email or web address].[email or web address]-[email or web address]-Cancer Consider Eucerin redness relief or Clinique Redness solutions SPF 30 for concealing redness after surgery if you are concerned about the appearance. WOUND CARE INSTRUCTIONS FOR SHAVE/PUNCH SKIN BIOPSY [...] discomfort. Tylenol, taken as directed by the supervisor hydrochloric area, will help relieve pain. If Tylenol does [...] choose to look at your results in [employer] prior to our office contacting you, that is your right and choice. Our office policy is to have your provider or the provider???s children's nursery assistant contact you with your results and [...] not call the office or send a Pluralsighthart message asking to discuss them. Providers are seeing patients during the day and cannot answer calls during clinic time or off hours/weekends. Unless it is an emergency, the data operations manager provider will not review biopsy and/ or lab results. Thank you for entrusting us with your care. [facility]- Dermatology documented in this encounter Progress Notes * Alena Sims MD - 10/03/2021 1030 EDT Images from the original note were not included. MOHS EVALUATION NOTE Chief Complaint Patient presents with ??? Mohs Consult [facility]- Dr. Elias biopsied on 09/24/2021 Subjective: Caitlin Marte is a 81 y.o. year old female who presents for evaluation and treatment recommendations for skin cancers. The patient was referred to us by Dr. Alyssa Elias. She notes the lesions have been present for several years, and reports no symptoms. Risk factors: Pacemaker/ICD: none Anticoagulants: none Total joint replacements/valves: none Allergies: Patient has No Known Allergies. Immunosuppression: none Smoking status: reports that she has quit smoking. She has never used smokeless tobacco. For full Medical, Surgical, Family, and Social histories as well as Review of Systems, Medications and Allergies please see those sections of this encounter in the electronic chart which I have personally reviewed. Objective: The following data was reviewed: external note(s) from referring provider and pathology report. Examination of the affected areas revealed the following: ?? 1.0 cm x 1.5 cm hemorrhagic crusted, pearly and telangiectatic, plaque located on the right and medial canthus. ?? 1.0 cm x 0.8 cm pearly and ulcerated, papule located on the right cheek. ?? Approx 1.0 cm x 0.6 cm sclerotic atrophic plaque on the right nasal crease/sidewall Pathology: Lab Results Component Value Date FINALDX 09/24/2021 A. SKIN OF MEDIAL CANTHUS, RIGHT, BIOPSY: - Basal cell carcinoma, nodular type. - Basal cell carcinoma present at peripheral and deep tissue edges. B. SKIN OF CHEEK, RIGHT, BIOPSY: - Basal cell carcinoma, nodular type. - Basal cell carcinoma present peripheral and deep tissue edges. 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 The diagnoses, etiology, prognosis and treatment options were reviewed. Due to the need for a high cure rate and optimum functional and aesthetic outcome, I feel that Mohssurgery is indicated for tissue conservation. The risks of Mohs surgery and potential reconstructive surgery, including: bleeding, infection, scarring, recurrence, injury to functionally or cosmetically important nerve structures and an unsatisfactory cosmetic result were reviewed. Increased risks that are specific to this case due to tumor type, tumor location or underlying patient characteristics include: injury to the lacrimal duct or punctum. The patient was given an opportunity to ask questions, and I believe that all of her questions were answered satisfactorily. Ms. Marte understands that following Mohs surgery an operative repair may be required and may involve substantial suturing. We have jointly planned to have Dr. Alyssa Elias repair the wound at the day of surgery if needed.She understands that it typically takes 4 to 6 months for wounds to heal before a decision can be made about the final cosmetic result and that in some cases a revision may be necessary to optimize the outcome. I explained to Ms. Marte that in addition to the risk of recurrence from her skin cancer she has an increased risk of developing additional new skin cancers elsewhere. For that reason, follow up for ongoing skin surveillance examinations, after surgery, will be imperative. The patient h as been scheduled to undergo surgery for the right medial canthus on 12/12/[address] Alyssa Elias performing the repair. 2) Nodular basal cell carcinoma of the right cheek ?? The diagnoses, etiology, prognosis and treatment options were reviewed. Due to the need for a high cure rate and optimum functional and aesthetic outcome, I feel that Mohssurgery is indicated for tissue conservation. The risks of Mohs surgery and potential reconstructive surgery, including: bleeding, infection, scarring, recurrence, injury to functionally or cosmetically important nerve structures and an unsatisfactory cosmetic result were reviewed. The patient was given an opportunity to ask questions, and I believe that all of her questions were answered satisfactorily. Ms. Marte understands that following Mohs surgery an operative repair may be required andmay involve substantial suturing. We have jointly planned to have me repair the wound at the day ofsurgery if needed. She understands that it typically takes 4 to 6 months for wounds to heal before a decision can be made about the final cosmetic result and that in some cases a revision may be necessary to optimize the outcome. I explained to Ms. Marte that in addition to the risk of recurrencefrom her skin cancer she has an increased risk of developing additional new skin cancers elsewhere.For that reason, follow up for ongoing skin surveillance examinations, after surgery, will be imperative. The patient will be scheduled to undergo surgery for the right cheek after biopsy of right nasal sidewall has been finalized to determine if she will need an M1 vs M2 slot. 3) Neoplasm of uncertain behavior of skin of right nasal crease/sidewall - Favor BCC - SURGICAL PATHOLOGY SHAVE BIOPSY PATIENT INFORMATION: Caitlin Marte : MRN: [id number] SURGEON: Dodie Patricia MD OPINION POLLS SURVEY WORKER: Alena Sims MD The indication, risks, benefits and alternatives to this procedure were discussed in detail with the patient and all questions were answered. Informed consent was obtained in writing. PROCEDURE NOTE Specimen A Procedure: Tangential Shave Indication: Diagnostic Biopsy Site: right nasal sidewall/crease Anesthesia: 1% lidocaine with epinephrine 1:100,000 local infiltration Prep: Alcohol Procedure performed by: The attending performed the nick aspects of the biopsy and the resident completed the biopsy. The lesion was prepped as above and locally anesthetized. The specimen was removed by tangential shave using a number 15 blade. Hemostasis was achieved with pressure and/or aluminum chloride. The wound was cleansed with alcohol and a sterile dressing was applied over Petrolatum ointment. Verbal andwritten wound care instructions were given.The specimen was submitted to pathology for histologicalevaluation. Alena Sims MD, LACEY, MS PGY-3 Dermatology Pager [phone] 10/04/21 10:15 Attestation statement: I performed or was present during the nick or critical portions of the visit and participated in the management of the patient. I agree with the findings and plan of care documented in the resident's/fellow's note. The resident performed the procedure under my direct supervision and with my assistance.. Dodie Patricia MD Dermatology & Mohs Surgery soft work wrapper layer and examiner, Dermatology Division [facility] 10/04/2021 10:13 documented in this encounter Miscellaneous Notes * Result Encounter Note - Ddoie Patricia MD - 10/03/2021 1030 EDT Sowmya, Please log and schedule for m1 R medial cheek, next available. This lesions on the sidewall did notshow BCC and I encouraged her to have it reevaluated if it changed drastically, but for now we willjust plan on treating her medial cheek (previously biopsied) and R medial canthus (already scheduled in tandem with Dr. Elias on 12/12). I left her a message with the results and plan. Dodie Cuba documented in this encounter Plan of Treatment Upcoming Encounters Date Type Department Care Team (Late st Contact Info) Description 10/27/2023 12:50 EDT Office Visit [facility] Dermatology 3rd Floor [address] [address] Nikita Kumari, DANDRE [address] [place] [address], [address] [place] [address] documented as of this encounter Procedures Procedure Name Priority Date/Time Associated Diagnosis Comments SURGICAL PATHOLOGY Routine 10/03/2021 11 :16 EDT Neoplasm of uncertain behavior of skin documented in this encounter Results * SURGICAL PATHOLOGY (10/03/2021 11:16 EDT) Note to Patient The following pathology results have been interpreted by your pathologist and may be available to you before your health provider has had the opportunity to review them. Please allow time for your provider to receive these results and explore management options, if applicable. 10/05/2021 10:33 [facility] Final Diagnosis A. SKIN OF NASAL SIDEWALL, RIGHT, SHAVE BIOPSY: - Melanocytic nevus, predominantly intradermal type. See comment. 10/05/2021 10:33 [facility] Diagnosis Comment Multiple levels of the biopsy have been reviewed. Features of intradermal nevus are best appreciated on deeper sections. Basal cell carcinoma is not identified. 10/05/2021 10:33 [facility] Attestation By the signature below, the attending physician certifies that they have 1) personally conducted a gross and/or microscopic examination of the described specimen(s), and/or personally interpreted the results of laboratory testing of the described specimen(s), and 2) personally rendered or confirmed the above diagnosis. 10/05/2021 10:33 [facility] at 1033 Clinical History Right nasal sidewall, favor BCC; clinical diagnosis code: D48.5 10/05/2021 10:33 [facility] Gross Description A. Received in formalin labelled with proper patient identification (initials W, P) and right nasal sidewall is a 0.5 x 0.3 x 0.1 cm ovoid shave pearly white skin. The margin is inked. The specimen is submitted intact in A1. DAVID SALVADOR(ASCP) 10/03/2021 15:53 10/05/2021 10:33 [facility] Performing Lab [facility] 10/05/2021 10:33 [facility] Scanned Images 10/05/2021 10:33 [facility] Tissue TISSUE SPECIMEN FROM SKIN / Unknown Collection, Other / Unknown 10/03/2021 11:16 EDT 10/03/2021 13:26 EDT Dodie Patricia MD PATHOLOGY [facility] [address] [place] [address] documented in this encounter Visit Diagnoses Diagnosis Neoplasm of uncertain behavior of skin- Primary 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
--- OUTSIDE RECORDS SUMMARY | 2023-09-06 10:19 | XMS_ITS | Encounter Summary ---
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 Possible stent placement for Repair of lacrimal drainage system [37230 (CPT??)] Surgery Details Date/Time Status Location OR Service Patient Class Case Class Case Type Trauma Case? 12/10/21 1115 Posted [facility] H - Elective Panel 1 Procedure LRB Anes Op Region Wound Class Comments Repair of RIGHT eyelid/Media l Carthus MOHS defect with tissue rearrangement. Possible stent placement for Repair of lacrimal drainage system Right General Eye Class I/ Clean PLASTIC REPAIR, CANALICULI Right General Eye Cla ss I/ Clean Surgeon Surgeon Role Service Panel Whitley Elias MD Primary Ophthalmology 1 documented in this encounter Social History Tobacco [...] Sign Reading Time Taken Comments Blood Pressure 115/69 12/10/2021 1142 EDT Pulse - - Temperature 35.9 ??C (96.6 ??F) 12/10/2021 1142 EDT Respiratory Rate 16 12/10/2021 1142 EDT Oxygen Saturation 98% 12/10/2021 1142 EDT Inhaled Oxygen Concentration - - Weight 67.7 kg (149 lb 4 oz) 12/10/2021 1142 EDT Height 160 cm (5' 3) 12/10/2021 1142 EDT Body Mass Index 26.44 12/10/2021 1142 EDT documented in this encounter Functional Status Functional [...] No 12/10/2021 documented as of this encounter Discharge Instructions * Discharge Instructions* [...] Elias (if unsure of appointment time, call [phone]) - If you have decreasing vision, uncontrollable pain, or significant bleeding call [phone] [address]Dr[address] Elias documented in this encounter Medications [...] 20 mEq by mouth 2 times daily. vomfabqh-axqezjcun-aidn methasone (MAXITROL) ophthalmic ointment Apply to all wounds 3 times daily for 10 days 3.5 g 1 12/10/2021 05/16/2022 documented as of this encounter Ordered Prescriptions Prescription Sig Dispensed Refills Start Date End Da te aqggyqvk-redpszcle-gwiyxkw hasone (MAXITROL) ophthalmic ointment Apply to all wounds 3 times daily for 10 days 3.5 g 1 12/10/2021 05/16/2022 tnorlloj-wucujuktm-drqahlg hasone (MAXITROL) ophthalmic ointment Apply to all wounds 3 times daily for 10 days 3.5 g 1 12/10/2021 12/10/2021 documented in this encounter Discharge Disposition Disposition Code Departure Means Destination Home or Self [facility] documented in this encounter H&P Notes * [...] Elias MD 12/10/2021 11:49 Source Note - PIE DOUGH ROLLER, SCAN 2 - 12/09/2021 16:14 EDT documented in [...] diagnosis: same ?? Surgeon: Whitley Elias MD [place] Surfacer: Naz Mcneill ?? Anesthesia: General anesthesia with [...] - 12/10/2021 1600 EDT Date: 12/10/2021 Location: [facility] OR Name: Caitlin Marte, : 1940, Diagnosis [...] thickness (Active) [REMOVED] Non-Surgical Airway (Removed) Staff: Microeconomics Professor: Obdulia Zhu RN; Arun Sherman RN Scrub Person: Myron Hinton Ophthalmology Tech: Mila Mcniell Indications: Caitlin Marte is an 81 y.o. [...] - 12/10/2021 1439 EDT Date: 12/10/2021 [facility] Name: Caitlin Marte, [...] 12/10/21 Incision Nose Full thickness (Active) Staff: Microeconomics Professor: Obdulia Zhu RN; Arun Sherman RN Scrub [...] Info) Description 10/27/2023 12:50 EDT Office Visit [facility] [address] [id number] Nikita Kumari PA-C [address] [place] [address], [address] [place] [phone] documented as of this encounter Procedures Procedure [...] EDT) 12/12/2021 11:4 3 EDT Scan 2 Roll Plugger PROCEDURE/MINOR CHIQUITA GICAL ORDERABLES documented in this encounter Visit Diagnoses Diagnosis Basal cell carcinoma (BCC) of right upper eyelid- Primary Basal cell carcinoma (BCC) of right upper eyelid documented in this encounter Admitting Diagnoses Diagnosis [...] (only) Given 12/10/2021 15:14 EDT 1,000 mg balanced salts (BSS) ophthalmic solution PRN, Starting on Thu12/10/21 at 1342, Until Thu12/10/21 at 1442, Routine, Intraprocedure Given 12/10/2021 13:42 EDT 15 mL bupivacaine-EPINEPHrine (PF) 0.5 %-1:200,000 injection PRN, Starting on Thu12/10/21 at 1340, Until Thu12/10/21 at 1442, Routine, Intraprocedure Given 12/10/2021 13:40 EDT 4 mL lactated ringers (LR) infusion at 25 mL/hr, intravenous, CONTINUOUS, Starting on Thu12/10/21 at 1200, Until Thu12/10/21 at 1802, Routine, Preprocedure Restarted 12/10/2021 12:09 EDT New Bag 12/10/2021 12:02 EDT 25 mL/hr ifftcdfs-iyuoohzva-qbdatsicywtpo (MAXITROL) ophthalmic ointment PRN, Starting on Thu12/10/21 at 1342, Until Thu12/10/21 at 1442, Intraprocedure Given 12/10/2021 13:42 EDT 3,500 mg oxymetazoline (AFRIN) 0.05 % nasal spray PRN, Starting on Thu12/10/21 at 1341, Until Thu12/10/21 at 1442, Routine, Intraprocedure Given 12/10/2021 13:41 EDT 1 [place] Other sodium chloride 0.9 % irrigation PRN, Starting on Thu12/10/21 at 1341, Until Thu12/10/21 at 1442, Routine, Intraprocedure Given 12/10/2021 13:41 EDT 500 mL documented in this encounter Discontinued Medications Medication Sig Discontinue Reason Start Date End Da te ukntqwrf-njcsictxs-pmf amethasone (MAXITROL) ophthalmic ointment Apply to all [...] (Given - Provid er: Whitley Elias MD) wfblmsvz-gsztmsbdl-gmwqgzuxgdwsx (MAXITROL) ophthalmic ointment (CANCELED) PRN, Starting on [...] 0.1 mg/mL syringe 0.5 mg 1 022 ceFAZolin (ANCEF) syringe 2 g 1 12/10/2021 fentaNYL citrate (PF) injection 25-50 mcg 1 12/10/2021 lactated ringers (LR) infusion 1 12/10/2021 naloxone (NARCAN) injection 0.2 mg 1 2021 ondansetron (PF) (ZOFRAN) injection 4 mg 1 12/10/2021 Discharge Count Last Ordered Date First Orde red Date DISCHARGE PATIENT 1 12/10/2021 documented in this encounter Care Teams Coin Box Collector Relationship Specialty Start Date End Date Jinny Camacho NP [address] [place] [address] PCP - General Family Medicine - Primary Care 12/03/21 documented as of this encounter
--- OUTSIDE RECORDS SUMMARY | 2023-09-06 10:19 | XMS_ITS | Encounter Summary ---
Author Organization [facility] [place] [address] Care Team Providers Care Supervisor Coke Handling Name Role Phone Jinny Camacho PROPERTY DAMAGE CLAIMS ADJUSTOR Primary Care Provider [phone] Encounter Details Date Type Department Care Team (Late st Contact Info) Description 03/10/2022 1:00 PM EST Tech [place] [phone] Cassie [place], [place] Bilateral carotid artery stenosis Social History Tobacco [...] Procedure Name Priority Date/Time Associated Diagnosis Comments CAROTID DUPLEX, BILATERAL Routine 03/10/2022 1:04 PM EST Bilateral carotid artery stenosis documented in this encounter Results * Carotid Duplex, Bilateral (03/10/2022 1:04 PM EST) VB Text Report Department: Vascular Surgery Lab Patient: [id number] (CAITLIN MARTE) CPT: 08318 Referring Physician: ANJALI MARTINO APRN ?? Indications: ??Carotid stenosis at OSH, ? [...] VASCUBASE 03/10/2022 1:04 PM EST Anjali Martino PROPERTY DAMAGE CLAIMS ADJUSTOR VASCULAR ORDERABLE S VASCUBASE documented in this encounter Visit Diagnoses Diagnosis Bilateral carotid artery stenosis Occlusion and stenosis of multiple and bilateral precerebral arteries without mention of cerebral infarction documented in this encounter Care Teams Supervisor Coke Handling Relationship Specialty Start Date End Date Jinny Camacho APRN [address] [place] [address] PCP - General Internal Medicine 10/04/19 documented as of this encounter
--- OUTSIDE RECORDS SUMMARY | 2023-09-06 10:19 | XMS_ITS | Encounter Summary ---
Author Organization [facility] Address [facility] [place] [address] Care Team Providers Care Director Operating Room Name Role Phone Jinny Camacho APRN Primary Care Provider [phone] Reason for Visit * Consultation (Routine) - Closed Specialty Diagnoses / Procedures Referred By Contcherrie t Referred To Contact Vascular Surgery Diagnoses Occlusion and stenosis of unspecified carotid artery Abnormal findings on diagnostic imaging of body structures ROUTINE, NEW PATIENT, B CAR DUP - carotid stenosis OSH duplex carotid bruit, SANE NURSE / PA / Jinny Castle, AIRPLANE RIGGER [address] [place] [address] [facility] [address] [place] [address] Referral ID Status Reason Start Date Expiration Date V isits Requested Visits Authorized [id number] Closed Consult, Test & Treat PCP Updated and/or Approved 01/24/2022 01/24/2023 6 6 Encounter Details Date Type Department Care Team (Late st Contact Info) Description 03/10/2022 2:00 PM EST Office Visit [place] [address] Ruma Rose MD [facility] [place] [address] Carotid stenosis, asymptomatic, bilateral Social History Tobacco Use Types Packs/Day Years Used Date Smoking Tobacco: Former Smokeless Tobacco: Never Comments:quit in her 50 's Sex and Gender Information Value Date Recorded Sex Assigned at Not on file Gender Identity Not on file Sexual Orientation Not on file documented as of this encounter Last Filed Vital Signs Vital Sign Reading Time Taken Comments Blood Pressure 141/79 03/10/2022 2:12 PM EST Pulse 93 03/10/2022 2:12 PM EST Temperature - - Respiratory Rate - - Oxygen Saturation - - Inhaled Oxygen Concentration - - Weight 66.2 kg (146 lb) 03/10/2022 2:12 PM EST Height 162.6 cm (5' 4) 03/10/2022 2:12 PM EST Body Mass Index 25.06 03/10/2022 2:12 PM EST documented in this encounter Progress Notes * Ruma Rose MD - 03/10/2022 2:00 PM EST This is a new patient to the practice who is being evaluated for carotid stenosis and was referred by Jinny Camacho APRN. This was discovered because the patient had a carotid bruit that prompted abilateral carotid artery duplex in [facility]. She is referred to [facility] for further evaluation. She has had no TIAs or strokes. PMHx: No past medical history on file. PSxHx: No past surgical history on file. Family Hx: No family history on file. Social Hx: Social History Tobacco Use ??? Smoking status: Former ??? Smokeless tobacco: Never ??? Tobacco comments: quit in her 50 's Substance Use Topics ??? Alcohol use: Not on file Medications: Medications 03/10/22 1412 Medication Sig Taking? methIMAzole (Tapazole) 10 mg Tablet Take 1 tablet by mouth daily. aspirin EC 81 mg Tablet, Delayed Release (E.C.) Take 81 mg by mouth daily. atorvastatin (Lipitor) 40 mg Tablet One tab carvediloL (Coreg) 3.125 mg Tablet TK 1 T PO BID furosemide (Lasix) 20 mg Tablet 10 mg. potassium chloride ER (K-Dur/Klor-Con) 20 mEq Tab Sust.Rel. Particle/Crystal TK 1 T PO D FLUoxetine (PROzac) 20 mg Capsule TAKE 1 CAPSULE BY MOUTH AT BEDTIME lisinopriL (Prinivil;Zestril) 20 mg Tablet 10 mg. Allergies: Allergies Allergen Reactions ??? Hydrocodone Bitartrate ??? Pcn [Penicillins] ??? Propoxyphene ??? Sulfa (Sulfonamide Antibiotics) ??? Tylenol [Acetaminophen] Review of Systems: Constitutional (weight change, fever) - Denies Neuro (dizziness, seizures, numbness, tingling) - Denies Eyes (vision) - Denies Ears, nose, throat (hearing) - Denies Cardiovascular (CP) - Denies Respiratory (SOB) - Denies GI (abd pain, nausea, emesis, blood in stool) - Denies (hematuria, dysuria, frequency) - Denies Muscoloskeletal (extremity pain, weakness) - denies Skin (ulcers, rashes) - denies All other ROS negative Physical Exam: Vitals: Patient Vitals for the past 24 hrs: Pulse BP 03/10/22 1412 93 141/79 Gen: No acute distress. HEENT: Normocephalic, atraumatic. PERR, EOMs intact bilaterally. No scleral icterus. Normal dentition Neck: Supple, no JVD. Heart: Regular rate and rhythm. (+) S1/S2. No snaps, clicks, rubs, or murmurs. No lifts/heaves Lungs: Regular respiratory rate with no increased work of breathing. Clear to auscultation bilaterally. Abd: Soft, nontender, not distended. Audible bowel sounds. No bruits or pulsatile mass on exam. No hepato/splenomegaly. Aortic pulsation normal Vascular Exam: R L Carotid 2/2 bruit (-) 2/2 bruit (-) Radial 2/2 2/2 Femoral 2/2 2/2 Popliteal 2/2 2/2 DP 2/2 2/2 PT 2/2 2/2 No edema or varicosities bilateral lower extremities <3 sec cap refill Skin: normal Digits/Nails: No evidence of clubbing, cyanosis, ischemia, or tissue loss. Musculoskeletal: Gait - normal, no notable motor sensory deficits on gross examination. Psych: AAOx3, mood/affect congruent Labs/Studies: Recent Results (from the past 72 hour(s)) Carotid Duplex, Bilateral Result Value Ref Range VB Text Report Department: Vascular Surgery Lab Patient: [id number] (CAITLIN MARTE) CPT: 03803 Referring Physician: ANJALI CHING APRN Indications: Carotid stenosis at OSH, ? degree of stenosis. Findings: ICA Proximal, Right PSV (cm/s): 276 EDV (cm/s): 101 ICA/CCA: 3.1 Plaque Structure: Echogenic Plaque Surface: Irregular %Stenosis: 50-69% ICA Distal, Right PSV (cm/s): 100 EDV (cm/s): 26 ICA/CCA: 1.1 CCA Distal, Right PSV (cm/s): 88 EDV (cm/s): 25 %Stenosis: Minimal CCA Proximal, Right PSV (cm/s): 98 EDV (cm/s): 22 External Carotid Artery, Right PSV (cm/s): 120 EDV (cm/s): 19 %Stenosis: <50% Vertebral, Right PSV (cm/s): 71 EDV (cm/s): 25 Direction of Flow: Antegrade ICA Proximal, Left PSV (cm/s): 332 EDV (cm/s): 112 ICA/CCA: 4.5 Plaque Structure: Echogenic Plaque Surface: Irreg ular %Stenosis: 60-69% ICA Distal, Left PSV (cm/s): 94 EDV (cm/s): 37 ICA/CCA: 1.3 CCA Distal, Left PSV (cm/s): 74 EDV (cm/s): 26 %Stenosis: Minimal CCA Proximal, Left PSV (cm/s): 73 EDV (cm/s): 26 External Carotid Artery, Left PSV (cm/s): 219 EDV (cm/s): 44 %Stenosis: >50% Vertebral, Left PSV (cm/s): 20 EDV (cm/s): 9 Direction of Flow: To-Fro Interpretation: RIGHT: There [...] mid neck. Calcification of the LEFT carotid bifurca tion prohibits thorough interrogation by Doppler: unable to exclude more significant stenosis. Vertebral Artery Data: Patent vertebral arteries with normal antegrade Doppler waveform on the RIGHT. 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 Bilateral Doppler derived brachial artery systolic pressures: (R) 133 mmHg and (L) 110 mmHg. Comparison: No previous study in our vascular lab database for comparison. Electronically Signed by: RUMA ROSE on 2022-03-10 02:10:13 PM VB Text Report End of Report Impression: Carotid duplex performed here at [facility] confirms the outside hospital findings of a right-sided 50 to 69% internal carotid artery stenosis and a left-sided 60 to 69% internal carotid stenosis. She also has evidence of left subclavian artery stenosis with left vertebral artery flow thatis bidirectional. She has had no TIAs or strokes, and has no symptoms of posterior circulation insufficiency. Therefore, all of her cerebrovascular disease is asymptomatic. At age 81, there is no indication for prophylactic carotid intervention. The estimated annual stroke risk from her asymptomatic carotid disease is less than 2%. With a life expectancy from here of less than 20 years, the risk of carotid revascularization, which is all frontloaded, exceeds the expected lifetime benefit. Thereis no indication for carotid intervention, and there is also no indication for routine carotid surveillance of asymptomatic disease. If the patient ever develops a TIA or stroke, certainly, our risk c alculation would change and we would reevaluate her promptly with subsequent likely revascularization or a symptomatic plaque. At this stage, however I do not believe she requires any further routinefollow-up for her carotid disease. documented in this encounter Plan of Treatment Scheduled Referrals Name Type Priority Associated Diagnoses Orde r Schedule Referral to Vascular Surgery Outpatient Referral Routine Occlusion and stenosis of unspecified carotid artery Abnormal findings on diagnostic imaging of body structures Ordered: 01/24/2022 documented as of this encounter Visit Diagnoses Diagnosis Carotid stenosis, asymptomatic, bilateral documented in this encounter Care Teams Director Operating Room Relationship Specialty Start Date End Date Jinny Camacho APRN [address] [place] [address] PCP - General Internal Medicine 10/04/19 documented as of this encounter
--- OUTSIDE RECORDS SUMMARY | 2023-09-06 10:19 | XMS_ITS | Encounter Summary ---
Author Organization [facility] Address [address] [place] [address] Care Team Providers Care Online Media Director Name Role Phone Unknown, Provider Primary Care Provider Encounter Details Date Type Department Care Team (Late st Contact Info) Description 12/02/2021 Orders Only [facility] Ophthalmology - [address] [id number] Whitley Elias MD [address] [place] [phone] Basal cell carcinoma (BCC) of right [...] Info) Description 10/27/2023 12:50 EDT Office Visit [facility] Dermatology 3rd Floor [address] [phone] Nikita Kumari PA-C [address] [place] [phone] documented as of this encounter Visit Diagnoses Diagnosis Basal cell carcinoma (BCC) of right upper eyelid- Primary documented in this encounter Orders Case Request Count Last Ordered Date First Orde red Date CASE REQUEST OPERATING ROOM 1 12/02/2021 documented in this encounter Care Teams Online Media Director Relationship Specialty Start Date End Date Unknown, Provider, PCP - General 01/25/21 12/02/21 documented as of this encounter
--- OUTSIDE RECORDS SUMMARY | 2023-09-06 10:19 | XMS_ITS | Encounter Summary ---
Author Organization [facility] Address [address] [place] [address] Care Team Providers Care Bolter Helper Name Role Phone Jinny Camacho ELECTRICIAN CONSTRUCTOR SUPERVISOR Primary Care Provider [phone] Reason for Visit * Reason Onset Date Comments Appointment Related 05/20/2022 Encounter Details Date Type Department Care Team (Late st Contact Info) Description 05/20/2022 Telephone [facility] Dermatology 5th Floor [address] [address] Kim Maravilla, RN Appointment Related Social History Tobacco Use Types [...] encounter Miscellaneous Notes * Telephone Encounter - Kim Maravilla RN - 05/20/2022 0914 EDT Called and spoke with patient. Relayed that, per Dodie Patricia MD, she should see general dermatology for a baseline full skin exam sometime in the next 4-6 months. Scheduled patient for an office visit with KAREN Rubin on 09/02/22 @ 1110. Call-back number provided in case the patient has questions or needs to re-schedule. KIM MARAVILLA RN 05/20/2022 9:23 documented in this encounter Plan of Treatment Upcoming Encounters Date Type Department Care Team (Late st Contact Info) Description 10/27/2023 12:50 EDT Office Visit [facility] Dermatology 3rd Floor [facility] [address] [place], [place] [phone] Nikita Kumari PA-C [address] [facility], [address] [place] [phone] documented as of this encounter Visit Diagnoses Not on filedocumented in this encounter Care Teams Bolter Helper Relationship Specialty Start Date End Date Jinny Camacho NP [address] [place] [address] PCP - General Family Medicine - Primary Care 12/03/21 documented as of this encounter
--- OUTSIDE RECORDS SUMMARY | 2023-09-06 10:19 | XMS_ITS | Encounter Summary ---
Author Organization [facility] [place] [address] Care Team Providers Care Graduate Assistant Athletic Trainer Name Role Phone Jinny Camacho APRN Primary Care Provider [phone] Reason for Referral * Consultation (Routine) - Closed Specialty Diagnoses / Procedures Referred By Zoya juarez Referred To Contact Endocrinology Diagnoses Basedow's disease Pretibial myxedema Jinny Camacho APRN [address] [place] [address] [facility] Endocrinology [address] [place] [phone] Referral ID Status Reason Start Date Expiration Date V isits Requested Visits Authorized [id number] Closed Consult, Test & Treat PCP Updated and/or Approved 08/12/2022 02/08/2023 6 6 Encounter Details Date Type Department Care Team (Latest Contact Info) Description 09/03/2022 Transcribe Orders eDH Incoming Referrals [phone] Jinny Camacho APRN [address] [place], [place] [id number] Basedow's disease; Pretibial myxedema Social History Tobacco Use Types Packs/Day Years Used Date Smoking Tobacco: Former Smokeless Tobacco: Never Comments:quit in her 51 's Sex and Gender Information Value Date Recorded Sex Assigned at Not on file Gender Identity Not on file Sexual Orientation Not on file documented as of this encounter Plan of Treatment Scheduled Referrals Name Type Priority Associated Diagnoses Order Schedule Referral to Endocrinology Outpatient Referral Routine Basedow's disease Pretibial myxedema Ordered: 09/03/2022 documented as of this encounter Visit Diagnoses Diagnosis 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
--- OUTSIDE RECORDS SUMMARY | 2023-09-06 10:20 | XMS_ITS | Encounter Summary ---
Author Organization [facility] Address [facility] [place] [address] Care Team Providers Care Board Setter Name Role Phone Jinny Camacho ZAINAB Primary Care Provider [phone] Encounter Details Date Type Department Care Team (Late st Contact Info) Description 06/19/2020 Telephone [place] [phone] Jeremías Shirley RN Social History Tobacco Use Types Packs/Day Years Used Date Smoking Tobacco: Former Smokeless Tobacco: Never Comments:quit in her 50 's Sex and Gender Information Value Date Recorded Sex Assigned at Not on file Gender Identity Not on file Sexual Orientation Not on file documented as of this encounter Miscellaneous Notes * Telephone Encounter - Jeremías Shirley RN - 06/25/2020 1:[address] Pizano spoke to patient. * Telephone Encounter - Roman Pizano MD - 06/25/2020 1:02 PM EDT I called Caitlin today to discuss her thyroid test that she had in the middle of June. Her TSH level is now 17 and her free T4 was slightly low. She has been taking 15 mg of methimazole (1-1/2 tabs of the 10 mg tablets). I suggested that she cut back that 1 tablet (10 mg) per day and then will have her repeat her thyroid test in early July. She may need a further reduction, however, she did have an elevated TSI in the past so I suspect she is going to continue to need some methimazole. I will make an appointment for her to have a TeleMed appointment with me in July and asked her to get some repeat blood test just before that which will include a TSH, free T4, and TSI level. Also send a copy of this letter to Jinny Camacho who is [facility]'s primary care provider. * Telephone Encounter - Jeremías Shirley RN - 06/25/2020 12:58 PM EDT Patient called again about this. * Telephone Encounter - Jeremías Shirley RN - 06/19/2020 10:17 AM EDT Patient left voicemail that Dr Pizano asked her to call and speak to him about her medication. documented in this encounter Plan of Treatment Not on file documented as of this encounter Visit Diagnoses Not on filedocumented in this encounter Care Teams Board Setter Relationship Specialty Start Date End Date Jinny Camacho APRN [address] [place] [address] PCP - General Internal Medicine 10/04/19 documented as of this encounter
--- OUTSIDE RECORDS SUMMARY | 2023-09-06 10:20 | XMS_ITS | Encounter Summary ---
Author Organization [facility] Address [facility] [place] [address] Care Team Providers Care Dean Of Women Name Role Phone Jinny Camacho ZAINAB Primary Care Provider [phone] Encounter Details Date Type Department Care Team (Late st Contact Info) Description 11/04/2019 Orders [place] [address] Roman Pizano MD [facility] [place] [address] Hyperthyroidism Social History Tobacco Use Types Packs/Day Years Used Date Smoking Tobacco: Former Smokeless Tobacco: Never Comments:quit in her 50 's Sex and Gender Information Value Date Recorded Sex Assigned at Not on file Gender Identity Not on file Sexual Orientation Not on file documented as of this encounter Plan of Treatment Not on file documented as of this encounter Results * (ABNORMAL) TSH (11/24/2019 4:04 PM EDT) TSH 0.07(L) 0.27 - 4.20 mcIU/mL [facility] Blood specimen (specimen) 11/24/2019 4:04 PM EDT 11/24/2019 5:20 PM EDT Narrative Resulting Agency Comment Spec In Lab Roman Pizano MD CHEMISTRY ORDERABLES [facility] [place] [address] * T3 Total (11/24/2019 4:04 PM EDT) T3, Total 101 75 - 170 ng/dL [facility] Blood specimen (specimen) 11/24/2019 4:04 PM EDT 11/24/2019 5:20 PM EDT Narrative Resulting Agency Comment Spec In Lab Roman Pizano MD CHEMISTRY ORDERABLES Performing Organization Address City/[facility]/ZIP Co de Phone Number [facility] [place] [address] * (ABNORMAL) T4, free (11/24/2019 4:04 PM EDT) Free T4 0.75(L) 0.93 - 1.70 ng/dL [facility] Blood specimen (specimen) 11/24/2019 4:04 PM EDT 11/24/2019 5:20 PM EDT Narrative Resulting Agency Comment Spec In Lab Roman Pizano MD CHEMISTRY ORDERABLES Performing Organization Address City/[facility]/ZIP Co de Phone Number [facility] [place] [address] documented in this encounter Visit Diagnoses Diagnosis Hyperthyroidism Thyrotoxicosis without mention of goiter or other cause, without mention of thyrotoxic crisis or storm documented in this encounter Care Teams Dean Of Women Relationship Specialty Start Date End Date Jinny Camacho APRN [address] [facility] [place] [address] PCP - General Internal Medicine 10/04/19 documented as of this encounter
--- OUTSIDE RECORDS SUMMARY | 2023-09-06 10:20 | XMS_ITS | Encounter Summary ---
Author Organization [facility] Address [facility] [place] [address] Care Team Providers Care Graduate Engineer Name Role Phone Jinny Camacho APRN Primary Care Provider [phone] Encounter Details Date Type Department Care Team (Late st Contact Info) Description 10/12/2019 [place] [address] Roman Pizano MD [facility] [address] Social History Tobacco Use Types Packs/Day Years [...] on filedocumented in this encounter Care Teams Graduate Engineer Relationship Specialty Start Date End Date Jinny Camacho APRN [address] [place] [address] PCP - General Internal Medicine 10/04/19 documented as of this encounter
--- OUTSIDE RECORDS SUMMARY | 2023-09-06 10:20 | XMS_ITS | Encounter Summary ---
Author Organization [facility] Address [facility] [place] [address] Care Team Providers Care Produce Department Manager Name Role Phone Jinny Camacho ZAINAB Primary Care Provider [phone] Encounter Details Date Type Department Care Team (Late st Contact Info) Description 11/24/2019 3:00 PM EDT Office [place] [address] Roman Pizano MD [facility] [place] [address] Hyperthyroidism Social History Tobacco Use Types Packs/Day Years Used Date Smoking Tobacco: Former Smokeless Tobacco: Never Comments:quit in her 50 's Sex and Gender Information Value Date Recorded Sex Assigned at Not on file Gender Identity Not on file Sexual Orientation Not on file documented as of this encounter Last Filed Vital Signs Vital Sign Reading Time Taken Comments Blood Pressure 140/67 11/24/2019 3:02 PM EDT Pulse 92 11/24/2019 3:02 PM EDT Temperature 36.1 ??C (97 ??F) 11/24/2019 3:02 PM EDT Respiratory Rate - - Oxygen Saturation 100% 11/24/2019 3:02 PM EDT Inhaled Oxygen Concentration - - Weight 57.1 kg (125 lb 12.8 oz) 11/24/2019 3:02 PM EDT Height 162.6 cm (5' 4) 11/24/2019 3:02 PM EDT Body Mass Index 21.59 11/24/2019 3:02 PM EDT documented in this encounter Progress Notes * Roman Pizano MD - 11/24/2019 3:00 PM EDT Subjective: Patient ID: Caitlin Marte is a 79 y.o. female who comes in with her granddaughter Cassie to discuss her hypothyroidism. Cheryl is currently on methimazole 20 mg a day. Since I saw her last she had been admitted to the hospital for a day or 2 with some increasing shortness of breath and with some evidence of congestive heart failure. She is now on Lasix her dose wascut from 20 down to 10 mg a day when she had some evidence of prerenal azotemia. She is also had lisinopril stopped because of the renal impairment. She seems to be feeling better with less shortness of breath. She did have some blood drawn this morning and I was able to get the fact that her creatinine had dropped from over 2 down to 1.44 since she had a reduction of her Lasix and perhaps the discontinuation of her lisinopril. Also of note is the fact that her atenolol was stopped when she was admitted with congestive heart failure.. HPI Review of Systems Objective: Physical Exam Constitutional: Appearance: Normal appearance. Neck: Comments: Thyroid is low-lying and I cannot feel any significant amount of thyroid tissue on swallowing. She has no stridor and has not noticed any problems swallowing. Neurological: Mental Status: She is alert. Psychiatric: Mood and Affect: Mood normal. Thought Content: Thought content normal. Judgment: Judgment normal. BP 140/67 Pulse 92 Temp 36.1 ??C (97 ??F) Ht 162.6 cm (5' 4) Wt 57.1 kg (125 lb 12.8 oz) SpO2 100% BMI 21.59 kg/m?? d Assessment and Plan: I do not think that Cheryl has had any thyroid function tests drawn since she last had been September/2019 when she remains mildly hyperthyroid. I suggested she get some thyroid test on the way out today I will then call her tomorrow with the results and adjust her methimazole if needed. I explained to her that her hyperthyroidism may have helped precipitate her episode of mild heart failure but hopefully by getting her thyroid test normal and also getting her on an appropriate dose of diuretics her heart failure can be controlled. When I talked her tomorrow we will discuss follow-up. She has been seen by her primary care provider Jinny Camacho who will staying in touch with so she will be aware of the results and recommendations. Greater than 20 of the 25-minute appointment was spent [id number] discussing the issues above. documented in this encounter Miscellaneous Notes * Addendum Note - Luciana Mendoza - 11/24/2019 3:00 PM EDTAddended by: LUCIANA MENDOZA on: 11/24/2019 03:53 PM Modules accepted: Orders documented in this encounter Plan of Treatment Not on file documented as of this encounter Procedures Procedure Name Priority Date/Time Associated Diagnosis Comments HC TOTAL T3 Routine 11/24/2019 4:04 PM EDT Hyperthyroidism HC THYROID STIMULATING HORMONE, SERUM Routine 11/24/2019 4:04 PM EDT Hyperthyroidism HC VENIPUNCTURE Routine 11/24/2019 4:04 PM EDT Hyperthyroidism documented in this encounter Results * (ABNORMAL) TSH (11/24/2019 4:04 PM EDT) TSH 0.07(L) 0.27 - 4.20 mcIU/mL [facility] Blood specimen (specimen) 11/24/2019 4:04 PM EDT 11/24/2019 5:20 PM EDT Narrative Resulting Agency Comment Spec In Lab Roman Pizano MD CHEMISTRY ORDERABLES [facility] [place] [address] * T3 Total (11/24/2019 4:04 PM EDT) T3, Total 101 75 - 170 ng/dL [facility] Blood specimen (specimen) 11/24/2019 4:04 PM EDT 11/24/2019 5:20 PM EDT Narrative Resulting Agency Comment Spec In Lab Roman Pizano MD CHEMISTRY ORDERABLES Performing Organization Address City/[facility] [address]/ZIP Co de Phone Number [facility] [place] [address] * (ABNORMAL) T4, free (11/24/2019 4:04 PM EDT) Free T4 0.75(L) 0.93 - 1.70 ng/dL [facility] Blood specimen (specimen) 11/24/2019 4:04 PM EDT 11/24/2019 5:20 PM EDT Narrative Resulting Agency Comment Spec In Lab Roman Pizano MD CHEMISTRY ORDERABLES Performing Organization Address [facility]/[place] Co de Phone Number [facility] [place] [address] documented in this encounter Visit Diagnoses Diagnosis Hyperthyroidism Thyrotoxicosis without mention of goiter or other cause, without mention of thyrotoxic crisis or storm documented in this encounter Care Teams Produce Department Manager Relationship Specialty Start Date End Date Jinny Camacho, SANITIZER [address] [place] [address] PCP - General Internal Medicine 10/04/19 documented as of this encounter
--- OUTSIDE RECORDS SUMMARY | 2023-09-06 10:20 | XMS_ITS | Encounter Summary ---
Author Organization [facility] Address [facility] [place] [address] Care Team Providers Care Doll Wig Hackler Name Role Phone Jinny Camacho ZAINAB Primary Care Provider [phone] Encounter Details Date Type Department Care Team (Late st Contact Info) Description 08/03/2020 8:00 AM EDT TH Visit (TeleHealth) [place] [address] Roman Pizano MD [facility] [place] [address] Hyperthyroidism Social History Tobacco Use Types Packs/Day Years Used Date Smoking Tobacco: Former Smokeless Tobacco: Never Comments:quit in her 50 's Sex and Gender Information Value Date Recorded Sex Assigned at Not on file Gender Identity Not on file Sexual Orientation Not on file documented as of this encounter Progress Notes * Roman Pizano MD - 08/03/2020 8:00 AM EDT Due to the coronavirus outbreak Pat was willing to do a TeleMed/telephone appointment from her home. 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 When I last interacted with her a few months ago her TSI was below the threshold and was normal andher TSH level was slightly elevated. I therefore had her decrease her methimazole dose from 15 mg aday down to 10 mg a day. She said she feels well and has had no palpitations, no heat intolerance and no tremor. She has not had any repeat blood test since adjusting her dose of methimazole. I suggested that she recheck her thyroid tests. I sent in the lab request to her local hospital in [facility]. When I get the results I will let her know whether or not to continue on the same dose of methimazole, decrease it or even stop it. She is not on a beta- george at this point. I will send a copy of this note to her primary care provider Jinny Camacho. Depending upon the results she could follow-up with Jinny who could get some thyroid tests periodically. The alternative would be for her to follow-up with one of my colleagues since I will be retiring. I told her that I would tentatively make an appointment for her to see Katie Acevedo in 6 months. The preparation and total time interacting with Pat over the phone and then follow-up arrangements was 30 minutes. documented in this encounter Plan of Treatment Not on file documented as of this encounter Visit Diagnoses Diagnosis Hyperthyroidism Thyrotoxicosis without mention of goiter or other cause, without mention of thyrotoxic crisis or storm documented in this encounter Care Teams Doll Wig Hackler Relationship Specialty Start Date End Date Jinny Camacho APRN [address] [place] [address] PCP - General Internal Medicine 10/04/19 documented as of this encounter
--- OUTSIDE RECORDS SUMMARY | 2023-09-06 10:20 | XMS_ITS | Encounter Summary ---
Author Organization [facility] Address [facility] [place] [address] Care Team Providers Care Loom Blower Name Role Phone Jinny Camacho APRN Primary Care Provider [phone] Encounter Details Date Type Department Care Team (Late st Contact Info) Description 08/03/2020 Orders Only [place] [address] Roman Pizano MD [facility] [place] [address] Hyperthyroidism Social History Tobacco Use Types Packs/Day [...] storm documented in this encounter Care Teams Loom Blower Relationship Specialty Start Date End Date Jinny Camacho APRN [address] [place] [address] PCP - General Internal Medicine 10/04/19 documented as of this encounter
--- OUTSIDE RECORDS SUMMARY | 2023-09-06 10:20 | XMS_ITS | Encounter Summary ---
Author Organization [facility] Address [facility] [place] [address] Care Team Providers Care Software Architect Name Role Phone Jinny Camacho ZAINAB Primary Care Provider [phone] Encounter Details Date Type Department Care Team (Late st Contact Info) Description 10/12/2019 Telephone [place] [phone] Jeremías Shirley RN Social History Tobacco Use Types Packs/Day Years Used Date Smoking Tobacco: Former Smokeless Tobacco: Never Comments:quit in her 50 's Sex and Gender Information Value Date Recorded Sex Assigned at Not on file Gender Identity Not on file Sexual Orientation Not on file documented as of this encounter Miscellaneous Notes * Telephone Encounter - Jeremías Shirley RN - 10/13/2019 8:[address] Pizano spoke to pt. * Telephone Encounter - Jeremías Shirley RN - 10/12/2019 2:49 PM EDT Patient left voicemail wanting to relay EKG info to Dr Pizano. Returned call to pt to discuss She reports she was started on atenolol and her BP ended up being 88/52 and 92/57. She was also feeling tired out. Her IGNITION EXPERT decreased the atenolol to half a tab AM and PM. She started that yesterday and is still feeling tired. She also reports her IGNITION EXPERT did an EKG which they were going to be sending to our office. She is still waiting to hear from Dr Pizano about her thyroid results. At the end of the call she reported the backs of her lower legs tighten up if she walks too much. documented in this encounter Plan of Treatment Not on file documented as of this encounter Visit Diagnoses Not on filedocumented in this encounter Care Teams Software Architect Relationship Specialty Start Date End Date Jinny Camacho APRN [address] [facility] [place] [address] PCP - General Internal Medicine 10/04/19 documented as of this encounter
--- OUTSIDE RECORDS SUMMARY | 2023-09-06 10:20 | XMS_ITS | Encounter Summary ---
Author Organization [facility] Address [facility] [place] [address] Care Team Providers Care Senior Pl Sql Developer Name Role Phone Jinny Camacho APRN Primary Care Provider [phone] Encounter Details Date Type Department Care Team (Late st Contact Info) Description 05/02/2021 Orders [place] [address] Rmoan Pizano MD [facility] [place] [address] Hyperthyroidism Social History Tobacco Use Types Packs/Day [...] storm documented in this encounter Care Teams Senior Pl Sql Developer Relationship Specialty Start Date End Date Jinny Camacho APRN [address] [place] [address] PCP - General Internal Medicine 10/04/19 documented as of this encounter
--- OUTSIDE RECORDS SUMMARY | 2023-09-06 10:20 | XMS_ITS | Encounter Summary ---
Author Organization [facility] Address [facility] [place] [address] Care Team Providers Care Cardroom Supervisor Name Role Phone Jinny Camacho PREPARATION OPERATOR Primary Care Provider [phone] Encounter Details Date Type Department Care Team (Late st Contact Info) Description 05/07/2021 10:30 AM EDT TH Visit (TeleHealth) [place] [address] Katie Acevedo PREPARATION OPERATOR [facility] [place] [address] Hyperthyroidism Social History Tobacco Use Types Packs/Day Years Used Date Smoking Tobacco: Former Smokeless Tobacco: Never Comments:quit in her 50 's Sex and Gender Information Value Date Recorded Sex Assigned at Not on file Gender Identity Not on file Sexual Orientation Not on file documented as of this encounter Progress Notes * Katie Acevedo APRN - 05/07/2021 10:30 AM EDT Images from the original note were not included. Date of Visit: 05/07/2021 Patient is aware that this will be a telemedicine/telephone visit and understands that this might be billed as a regular office visit. Patient's location and were confirmed prior to the start of the visit. 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 female with PMH significant for hyperthyroidism on methimazole, taking methimazole since 11/2019, started at 20mg dose. She is not taking a beta blockerat this point. She has been followed by Dr. Pizano until his recent care home. Methimazole reduced to 10mg daily in July 2020 at her last visit. She has continued to take 10mg methimazole a day. Tookher last dose this morning, has not yet updated her labs. New jeanette Lisa in [place] Plan from previous visit note:Harinder 08/03/20 In the past she has had TSI positive hyperthyroidism and has been on methimazole for quite a while and has tolerated it. ?? When I last interacted with her a few months ago her TSI was below the threshold and was normal andher TSH level was slightly elevated. I therefore had her decrease her methimazole dose from 15 mg aday down to 10 mg a day. ?? She said she feels well and has had no palpitations, no heat intolerance and no tremor. ?? She has not had any repeat blood test since adjusting her dose of methimazole. ?? I suggested that she recheck her thyroid tests. I sent in the lab request to her local hospital in [facility]. ?? When I get the results I will let her know whether or not to continue on the same dose of methimazole, decrease it or even stop it. She is not on a beta- george at this point. ?? I will send a copy of this [...] to see Katie Acevedo in 6 months. Current Medications: Medications 05/07/21 0758 Medication Sig Taking? methIMAzole (Tapazole) 10 mg [...] lisinopriL (Prinivil;Zestril) 20 mg Tablet 10 mg. REVIEW OF SYSTEMS: Constitutional: No recent weight changes, no fevers, chills, fatigue, denies sleep disturbances Endocrine: No increased thirst or urination, No heat/cold intolerance Eyes: No recent vision changes ENT: No dysphagia, dental issues Cardiovascular: No chest pain, no palpitations Respiratory: No wheezing , shortness of breath GI: No nausea, vomiting, diarrhea, constipation : No frequent urinary tract infections, dysuria, hematuria Neurological: No Tremors No weakness or numbness, dizziness Skin/Feet: No skin changes Physical Exam: There were no vitals taken for this visit. Labs: Assessment: Patient is a 80 y.o. 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 Patient has not updated labs. Has continued on methimazole at 10mg daily, took her last dose this morning. Agrees to update labs and will plan adjust dose after review of TFTs. New prescription sent for 10mg methimazole unitl labs can be updated. Plan: Update TSH, free T4 Continue on methimazole 10mg until labs can be reviewed Will follow up after review of labs. 30 minutes were spent reviewing the medical record and available tests, [facility], counseling the patient on medications, and in prescription management, I have reviewed the plan outlined above with the patient and patient has verbalized understanding. documented in this encounter Plan of Treatment Not on file documented as of this encounter Visit Diagnoses Diagnosis Hyperthyroidism Thyrotoxicosis without mention of goiter or other cause, without mention of thyrotoxic crisis or storm documented in this encounter Care Teams Cardroom Supervisor Relationship Specialty Start Date End Date Jinny Camacho APRN [address] [place] [address] PCP - General Internal Medicine 10/04/19 documented as of this encounter
--- OUTSIDE RECORDS SUMMARY | 2023-09-06 10:20 | XMS_ITS | Encounter Summary ---
Author Organization [place] [address] Care Team Providers Care Skip Hoist Operator Name Role Phone Jinny Camacho APRN Primary Care Provider [phone] Encounter Details Date Type Department Care Team (Late st Contact Info) Description 10/07/2019 Telephone [place] [phone] Mariano Hamm Social History Tobacco Use Types Packs/Day Years Used Date Smoking Tobacco: Former Smokeless Tobacco: Never Comments:quit in her 50 's Sex and Gender Information Value Date Recorded Sex Assigned at Not on file Gender Identity Not on file Sexual Orientation Not on file documented as of this encounter Miscellaneous Notes * Telephone Encounter - Mariano Hamm - 10/07/2019 4:07 PM EDT Reviewed office note from 10/[address] Pizano. As of today 10/06, encounter is still open; unsure if patient needs f/u appointment. No AVS instructions included in encounter at this time. documented in this encounter Plan of Treatment Not on file documented as of this encounter Visit Diagnoses Not on filedocumented in this encounter Care Teams Skip Hoist Operator Relationship Specialty Start Date End Date Jinny Camacho APRN [address] [place] [address] PCP - General Internal Medicine 10/04/19 documented as of this encounter
--- OUTSIDE RECORDS SUMMARY | 2023-09-06 10:20 | XMS_ITS | Encounter Summary ---
Author Organization [facility] Address [facility] [place] [address] Care Team Providers Care Account Services Analyst Name Role Phone Jinny Camacho APRN Primary Care Provider [phone] Encounter Details Date Type Department Care Team (Late st Contact Info) Description 05/31/2020 Orders [place] [address] Roman Pizano MD [facility] [place] [address] Hyperthyroidism Social History Tobacco Use Types Packs/Day [...] storm documented in this encounter Care Teams Account Services Analyst Relationship Specialty Start Date End Date Jinny Camacho APRN [address] [place] [address] PCP - General Internal Medicine 10/04/19 documented as of this encounter
--- OUTSIDE RECORDS SUMMARY | 2023-09-06 10:20 | XMS_ITS | Encounter Summary ---
[place] [address] Care Team Providers Care Casino Attendant Name Role Phone Jinny Camacho APRN Primary Care Provider [phone] Reason for Visit * Reason Onset Date Comments Medication Refill 04/26/2021 Encounter Details Date Type Department Care Team (Late st Contact Info) Description 04/26/2021 Refill [place] [phone] Vivi Wright I Social History Tobacco Use Types Packs/Day Years [...] on filedocumented in this encounter Care Teams Casino Attendant Relationship Specialty Start Date End Date Jinny Camacho APRN [address] [place] [address] PCP - General Internal Medicine 10/04/19 documented as of this encounter
--- OUTSIDE RECORDS SUMMARY | 2023-09-06 10:20 | XMS_ITS | Encounter Summary ---
Author Organization [facility] Address [facility] [place] [address] Care Team Providers Care Automotive Designer Name Role Phone Jinny Camacho ZAINAB Primary Care Provider [phone] Encounter Details Date Type Department Care Team (Late st Contact Info) Description 10/06/2019 [place] [address] Roman Pizano MD [facility] [place] [address] Hyperthyroidism Social History Tobacco Use Types Packs/Day Years Used Date Smoking Tobacco: Former Smokeless Tobacco: Never Comments:quit in her 50 's Sex and Gender Information Value Date Recorded Sex Assigned at Not on file Gender Identity Not on file Sexual Orientation Not on file documented as of this encounter Plan of Treatment Not on file documented as of this encounter Results * (ABNORMAL) Thyroid Stimulating Immunoglobulins (10/06/2019 3:25 PM EDT) TSI 7.56(H) <=0.55 IU/L [facility] Blood specimen (specimen) 10/06/2019 3:25 PM EDT 10/07/2019 7:46 AM EDT Narrative Resulting Agency Comment Spec In Lab Roman Pizano MD IMMUNOLOGY ORDERABLE S [facility] [place] [address] * (ABNORMAL) T3 Total (10/06/2019 3:25 PM EDT) T3, Total 272(H) 75 - 170 ng/dL [facility] Blood specimen (specimen) 10/06/2019 3:25 PM EDT 10/06/2019 3:39 PM EDT Narrative Resulting Agency Comment Spec In Lab Roman Pizano MD CHEMISTRY ORDERABLES Performing Organization Address City/[facility]/ZIP Co de Phone Number [facility] [place] [address] * (ABNORMAL) T4, free (10/06/2019 3:25 PM EDT) Free T4 2.80(H) 0.93 - 1.70 ng/dL [facility] Blood specimen (specimen) 10/06/2019 3:25 PM EDT 10/06/2019 3:39 PM EDT Narrative Resulting Agency Comment Spec In Lab Roman Pizano MD CHEMISTRY ORDERABLES Performing Organization Address City/[facility] Co de Phone Number [facility] [place] [address] documented in this encounter Visit Diagnoses Diagnosis Hyperthyroidism Thyrotoxicosis without mention of goiter or other cause, without mention of thyrotoxic crisis or storm documented in this encounter Care Teams Automotive Designer Relationship Specialty Start Date End Date Jinny Camacho APRN 4 [facility] [place] [address] PCP - General Internal Medicine 10/04/19 documented as of this encounter
--- OUTSIDE RECORDS SUMMARY | 2023-09-06 10:20 | XMS_ITS | Encounter Summary ---
Author Organization [facility] Address [facility] [place] [address] Care Team Providers Care Test Tech Name Role Phone Jinny Camacho APRN Primary Care Provider [phone] Reason for Visit * Consultation (Routine) - Closed Specialty Diagnoses / Procedures Referred By Zoya t Referred To Contact Endocrinology Diagnoses Thyrotoxicosis, unspecified without thyrotoxic crisis or storm WEIGHT LOSS, ANXIETY, TSH <0.01, FT4 2.71 Jinny Camacho, ZAINAB [address] [place] [address] [facility] Endocr[facility]ology [address] [place] [address] Referral ID Status Reason Start Date Expiration Date V isits Requested Visits Authorized [id number] Closed Consult, [facility] PCP Updated and/or Approved 10/04/2019 10/03/2020 1 1 Encounter Details Date Type Department Care Team (Late st Contact Info) Description 10/06/2019 2:40 PM EDT Office [place] [address] Roman Pizano MD [facility] [place] [place] [address] Hyperthyroidism Social History Tobacco Use Types Packs/Day Years Used Date Smoking Tobacco: Former Smokeless Tobacco: Never Comments:quit in her 50 's Sex and Gender Information Value Date Recorded Sex Assigned at Not on file Gender Identity Not on file Sexual Orientation Not on file documented as of this encounter Last Filed Vital Signs Vital Sign Reading Time Taken Comments Blood Pressure 124/66 10/06/2019 2:29 PM EDT Pulse 82 10/06/2019 2:29 PM EDT Temperature 36.7 ??C (98 ??F) 10/06/2019 2:29 PM EDT Respiratory Rate - - Oxygen Saturation 99% 10/06/2019 2:29 PM EDT Inhaled Oxygen Concentration - - Weight 59 kg (130 lb) 10/06/2019 2:29 PM EDT Height 165.1 cm (5' 5) 10/06/2019 2:29 PM EDT Body Mass Index 21.63 10/06/2019 2:29 PM EDT documented in this encounter Progress Notes * Roman Pizano MD - 10/06/2019 2:40 PM EDT Subjective: Patient ID: Caitlin Marte is a 79 y.o. female who had no history of any thyroid disease until she recently had a TSH level checked that was undetectable. It seems like the testing was done due to the fact that she had mentioned to her primary care provider, Jinny Camacho, that she had some problems with her memory. Also of note is the fact that over the last year she is lost about 30 pounds. Some of this she tried to lose but it sounds like she lost more weight than she had thought she would lose. She also complains of some fatigue and also at night she complains of some burning in her chest suggested that she is got some reflux. She has no family history of any thyroid disease or other autoimmune diseases that she knows of. Habits: Does not smoke, does not use alcohol, wears seatbelts Social history used to work as a [employer] at [employer] but is retired. Is not had 2 children however first son at age 55 who had diabetes and she has 4 grandchildren. Review of systems: Denies any history of heart disease, lung disease, kidney problems, diabetes, any other autoimmune diseases. Reports that she does have high blood pressure and is on lisinopril Family history: She said her father had heart disease and is mention her son at age 55 who is diabetic. Miscellaneous: Denies palpitations, is not taking biotin or other supplements, denies any double vision or any eye problems. Objective: Physical Exam Constitutional: Appearance: Normal appearance. Eyes: General: No scleral icterus. Comments: No stare or exophthalmos. Neck: Comments: Low lying, can barely feel top of thyroid on swallowing. No nodules appreciated. Cardiovascular: Comments: Tachycardia and cannot determine if in AF. Pulmonary: Effort: Pulmonary effort is normal. Breath sounds: Normal breath sounds. Musculoskeletal: Comments: No distal tremor of upper extremitis. Neurological: Mental Status: She is alert and oriented to person, place, and time. Psychiatric: Mood and Affect: Mood normal. Behavior: Behavior normal. Thought Content: Thought content normal. Judgment: Judgment normal. BP 124/66 Pulse 82 Temp 36.7 ??C (98 ??F) Ht 165.1 cm (5' 5) Wt 59 kg (130 lb) SpO2 99% BMI 21.63 kg/m?? Assessment and Plan: Recent testing done in early September/2019 showed a TSH that was undetectable and a free T4 that was 2.71 ng/DL with normals being 0.76-1.46. The rest of her blood test did not show any significant abnormalities. It does appear that Pat has newly discovered hyperthyroidism. I spent some time talking to her about the significance of hyperthyroidism and the fact that we need to determine exactly what causing it. I suggested that we get some blood test including a TRaB, total T3 to determine just how hyperthyroid she is, I will also do an EKG since I am not sure whether or not she has atrial fibrillation. When I get these results I will decide on a further evaluation and decide whether she needs a thyroid ultrasound which she could probably have done locally. I told her I would call her in the next 24 hours when I get her thyroid test results for her total T3 and her EKG. We will then determine whether or not to start her on a beta-george. We will also await for the TRaB results to see whether or not she needs to be on methimazole. I told her I would inform JESE Tariq of the results and my recommendations for treatment. documented in this encounter Plan of Treatment Not on file documented as of this encounter Procedures Procedure Name Priority Date/Time Associated Diagnosis Comments HC VENIPUNCTURE Routine 10/06/2019 3:25 PM EDT Hyperthyroidism HC TOTAL T3 Routine 10/06/2019 3:25 PM EDT Hyperthyroidism HC FREE THYROXINE (T4) STAT 10/06/2019 3:25 PM EDT Hyperthyroidism documented in this encounter Results * (ABNORMAL) T3 Total (10/06/2019 3:25 PM EDT) T3, Total 272(H) 75 - 170 ng/dL [facility] Blood specimen (specimen) 10/06/2019 3:25 PM EDT 10/06/2019 3:39 PM EDT Narrative Resulting Agency Comment Spec In Lab Roman Pizano MD CHEMISTRY ORDERABLES Performing Organization Address [facility] Co de Phone Number [facility] [place] [address] * (ABNORMAL) T4, free (10/06/2019 3:25 PM EDT) Free T4 2.80(H) 0.93 - 1.70 ng/dL [facility] Blood specimen (specimen) 10/06/2019 3:25 PM EDT 10/06/2019 3:39 PM EDT Narrative Resulting Agency Comment Spec In Lab Roman Pizano MD CHEMISTRY ORDERABLES Performing Organization Address [facility]/ZIP Co de Phone Number [facility] [place] [address] * (ABNORMAL) Thyroid Stimulating Immunoglobulins (10/06/2019 3:25 PM EDT) TSI 7.56(H) <=0.55 IU/L [facility] Blood specimen (specimen) 10/06/2019 3:25 PM EDT 10/07/2019 7:46 AM EDT Narrative Resulting Agency Comment Spec In Lab Roman Pizano MD IMMUNOLOGY ORDERABLE S [facility] [place] [address] documented in this encounter Visit Diagnoses Diagnosis Hyperthyroidism Thyrotoxicosis without mention of goiter or other cause, without mention of thyrotoxic crisis or storm documented in this encounter Care Teams Test Tech Relationship Specialty Start Date End Date Jinny Camacho, LABEL CUTTER [address] [place] [address] PCP - General Internal Medicine 10/04/19 documented as of this encounter
--- OUTSIDE RECORDS SUMMARY | 2023-09-06 10:20 | XMS_ITS | Encounter Summary ---
Author Organization Replaced By [facility] [place] [address] Care Team Providers Care Operator Lights Name Role Phone Jinny Camacho APRN Primary Care Provider [phone] Encounter Details Date Type Department Care Team (Late st Contact Info) Description 01/21/2022 Ancillary Procedure [place] [address] Jinny Camacho APRN [address] [place] [address] Social History Tobacco Use Types Packs/Day Years [...] Procedure Name Priority Date/Time Associated Diagnosis Comments FILM LIBRARY STORAGE ONLY ULTRASOUND STUDY Routine 01/21/2022 12:00 AM EST documented in this encounter Results * Film Library- Storage Only Ultrasound Study (01/21/2022 12:00 AM EST) Narrative [facility] - 01/23/2022 7:25 PM EST This exam is auto-finalizing. It's purpose is for storage only. Jinny Camacho APRN IMG FILM LIBRARY ORD ERABLES [place] documented in this encounter Visit Diagnoses Not on filedocumented in this encounter Care Teams Operator Lights Relationship Specialty Start Date End Date Jinny Camacho, ZAINAB [address] [place] [address] PCP - General Internal Medicine 10/04/19 documented as of this encounter
--- OUTSIDE RECORDS SUMMARY | 2023-09-06 10:20 | XMS_ITS | Encounter Summary ---
Author Organization [facility] [place] [address] Care Team Providers Care Recovery Auditor Name Role Phone Jinny Camacho APRN Primary Care Provider [phone] Encounter Details Date Type Department Care Team (Late st Contact Info) Description 05/23/2020 Refill [place] [address] Rachel Vallecillo Social History Tobacco Use Types Packs/Day Years [...] on filedocumented in this encounter Care Teams Recovery Auditor Relationship Specialty Start Date End Date Jinny Camacho APRN [address] [place] [address] PCP - General Internal Medicine 10/04/19 documented as of this encounter
--- OUTSIDE RECORDS SUMMARY | 2023-09-06 10:20 | XMS_ITS | Encounter Summary ---
Author Organization [facility] Address [facility] [place] [address] Care Team Providers Care Mgmt Specialist Name Role Phone Jinny Camacho ZAINAB Primary Care Provider [phone] Encounter Details Date Type Department Care Team (Late st Contact Info) Description 05/31/2020 9:40 AM EDT TH Visit (TeleHealth) [place] [address] Roman Pizano MD [facility] [place] [address] Hyperthyroidism Social History Tobacco Use Types Packs/Day Years Used Date Smoking Tobacco: Former Smokeless Tobacco: Never Comments:quit in her 50 's Sex and Gender Information Value Date Recorded Sex Assigned at Not on file Gender Identity Not on file Sexual Orientation Not on file documented as of this encounter Progress Notes * Roman Pizano MD - 05/31/2020 9:40 AM EDT I saw Caitlin on a TeleMed/telephone appointment for discussion and follow-up concerning her Graves' hyperthyroidism which in the past has caused some worsening of her congestive heart failure. Caitlin says she is feeling very well at this time. Has less shortness of breath and appears to have more energy and she says she can breathe well. She is currently on methimazole 15 mg a day is off of atenolol and on the other medicines listed inher chart. She has not had any thyroid function tests recently. I discussed with her the fact that it sounds like her congestive heart failure is better and also Isuspect she is euthyroid release less hyperthyroid then in the past. I suggested that we check some repeat thyroid function tests at [facility]. I told her I would get back in touch with her when I get the results. She also asked if she could have a glass of wine on rare occasions which I told her I thought was fine. She does have a follow-up in cardiology and will have a repeat echocardiogram. In summary we will check her thyroid function tests and adjust her methimazole if needed. I told her I would send a copy of this letter to Jinny Camacho APRN who is her primary care provider. I also told her that I would make an appointment for her to see Katie Acevedo for a follow-up TeleMed or in person appointment since I will be retiring at the end of July. Patient for this visit, the time spent talking to Caitlin dupont about her thyroid status as it relates to her history of heart failure, and also preparation for her follow-up and arrangement to get some blood test done in [place] took 30 minutes. documented in this encounter Plan of Treatment Not on file documented as of this encounter Visit Diagnoses Diagnosis Hyperthyroidism Thyrotoxicosis without mention of goiter or other cause, without mention of thyrotoxic crisis or storm documented in this encounter Care Teams Mgmt Specialist Relationship Specialty Start Date End Date Jinny Camacho APRN [address] [place] [address] PCP - General Internal Medicine 10/04/19 documented as of this encounter
--- OUTSIDE RECORDS SUMMARY | 2023-09-06 10:20 | XMS_ITS | Encounter Summary ---
Author Organization [facility] Address [facility] [address] Care Team Providers Care Correspondence Representative Name Role Phone Jinny Camacho ZAINAB Primary Care Provider [phone] Reason for Visit * Reason Onset Date Comments Shortness of Breath 11/04/2019 Encounter Details Date Type Department Care Team (Late st Contact Info) Description 11/04/2019 Telephone [place] [address] Jeremías Shirley, RN Shortness of Breath Social History Tobacco Use Types Packs/Day Years Used Date Smoking Tobacco: Former Smokeless Tobacco: Never Comments:quit in her 50 's Sex and Gender Information Value Date Recorded Sex Assigned at Not on file Gender Identity Not on file Sexual Orientation Not on file documented as of this encounter Miscellaneous Notes * Telephone Encounter - Roman Pizano MD - 11/04/2019 2:14 PM EDT I am treating Pat for Graves' hyperthyroidism. She has been on 20 mg of methimazole now for approximately a month. She had been on 25 mg of atenolol twice a day but was cut back to a 12.5 mg twice a day due to low blood pressure. She called today to say she is having some intermittent mild to moderate short of breath feelings. She said she has not been getting short of breath at night except she did wake up this morning somewhat short of breath. She denies any chest pain. She is scheduled to get some repeat thyroid test done this Thursday at [facility]. She said that she had had her pulse taken by her next-door neighbor who is a nurse and she thought it was 88. I believe that was yesterday or the day before. When I suggested that she try to go to her primary care provider in order to get a blood pressure and pulse and have somebody listen to her lungs. I told her that it is possible she could have some congestive failure due to the hyperthyroidism. I then called her primary care office and left a message to call me back. I believe that Pat will probably call them also. It does not sound like she is any acute situation but will try to connect with release 1 more time this weekend. We can then see what her thyroid test are on Thursday and make a decision as to whether or not she needs to have an adjustment in her medications. * Telephone Encounter - Jeremías Shirley RN - 11/04/2019 8:39 AM EDT Patient left voicemails this morning requesting to speak to Dr Pizano about her medicine. She then left another one saying she is having a hard time breathing Returned call to patient, she denies pain, not in any distress at this time. She says this shortness of breath has been happening on and off with exertion since she started taking atenolol in September.This morning she was just getting up and going to the bathroom and it happened. She reports the walk to her bathroom is very short and this never happened to her before she started taking atenolol. She also reports that at times she can have issues taking in a deep breath. This can be regardless of whether she was active or not. She finds all of this scary and is hoping to discuss with someone today. She reports also having had an ECG done recently, that is scanned into her chart dated 10/12. documented in this encounter Plan of Treatment Not on file documented as of this encounter Visit Diagnoses Not on filedocumented in this encounter Care Teams Correspondence Representative Relationship Specialty Start Date End Date Jinny Camacho APRN [address] [facility] [place] [address] PCP - General Internal Medicine 10/04/19 documented as of this encounter
--- OUTSIDE RECORDS SUMMARY | 2023-09-06 10:20 | XMS_ITS | Encounter Summary ---
Author Organization [facility] [place] [address] Care Team Providers Care Automobile Contract Clerk Name Role Phone Jinny Camacho APRN Primary Care Provider [phone] Encounter Details Date Type Department Care Team (Late st Contact Info) Description 05/02/2021 Telephone [place] [address] Rachel Vallecillo Social History Tobacco Use Types [...] on filedocumented in this encounter Care Teams Automobile Contract Clerk Relationship Specialty Start Date End Date Jinny Camacho APRN [address] [place] [address] PCP - General Internal Medicine 10/04/19 documented as of this encounter
--- OUTSIDE RECORDS SUMMARY | 2023-09-06 10:20 | XMS_ITS | Encounter Summary ---
Author Organization [facility] Address [facility] [place] [address] Care Team Providers Care Abrasive Coating Machine Operator Name Role Phone Jinny Camacho APRN Primary Care Provider [phone] Encounter Details Date Type Department Care Team (Late st Contact Info) Description 11/27/2019 Orders [place] [address] Roman Pizano MD [facility] [place] [address] Hyperthyroidism Social History Tobacco Use Types Packs/Day [...] storm documented in this encounter Care Teams Abrasive Coating Machine Operator Relationship Specialty Start Date End Date Jinny Camacho APRN [address] [place] [address] PCP - General Internal Medicine 10/04/19 documented as of this encounter
--- OUTSIDE RECORDS SUMMARY | 2023-09-06 10:20 | XMS_ITS | Encounter Summary ---
Author Organization [facility] Address [facility] [place] [address] Care Team Providers Care Carpenter Repair Name Role Phone Jinny Camacho APRN Primary Care Provider [phone] Encounter Details Date Type Department Care Team (Late st Contact Info) Description 06/25/2020 Orders [place] [address] Roman Pizano MD [facility] [place] [address] Hyperthyroidism Social History Tobacco Use Types Packs/Day [...] storm documented in this encounter Care Teams Carpenter Repair Relationship Specialty Start Date End Date Jinny Camacho APRN [address] [place] [address] PCP - General Internal Medicine 10/04/19 documented as of this encounter
--- OUTSIDE RECORDS SUMMARY | 2023-09-06 10:20 | XMS_ITS | Encounter Summary ---
[place] [address] Care Team Providers Care Tube Puller Name Role Phone Jinny Camacho APRN Primary Care Provider [phone] Reason for Visit * Reason Onset Date Comments Medication Refill 04/22/2021 Encounter Details Date Type Department Care Team (Late st Contact Info) Description 04/22/2021 [place] [phone] Jeremías Shirley, RN Social History Tobacco Use Types Packs/Day [...] on filedocumented in this encounter Care Teams Tube Puller Relationship Specialty Start Date End Date Jinny Camacho APRN [address] [place] [address] PCP - General Internal Medicine 10/04/19 documented as of this encounter
[2023-09-06] MEDS: Normal Saline 500 ML IV (10:49)
[2023-09-06 11:02] LABS: Abs Immature Grans 0.02 10^3/uL (0.0-0.06); Absolute Basophil Count 0.05 10^3/uL (0.0-0.2); Absolute Lymphocyte Count 2.36 10^3/uL (1.2-3.4); Absolute Monocyte Count 1.37 10^3/uL (0.1-0.8); Absolute Neutrophil Count 4.93 10^3/uL (1.2-6.7); Basophils % 0.6 %; Eosinophils % 3.3 %; HCT 39.4 % (36.0-46.0); HGB 13.2 g/dL (11.2-15.7); Immature Grans % 0.2 %; Lymphocytes % 26.1 %; MCH 29.6 pg (27.0-33.0); MCHC 33.5 % (32.0-36.0); MCV 88 fL (80-95); MPV 9.6 fL (8.0-11.0); Monocytes % 15.2 %; Neutrophils % 54.6 %; Platelet Count 227 10^3/uL (130-400); RBC 4.46 10^6/uL (3.93-5.22); RDW 13.7 % (11.7-14.6); RDW-SD 44.2 fL; WBC 9.03 10^3/uL (4.4-10.8)
--- NOTE | 2023-09-06 11:15 | RT.EKG_ITS ---
APPROVED REPORT Exam: Resting ECG Reason for Exam: Hypokalemia Patient Location: E HR:84 bpm ECG Measurements Heart Rate 84 AXIS MN 164 P 21 QRSd 111 QRS 32 QT 428 T 43 QTc 507 Conclusion Sinus rhythm...normal P axis, V-rate 60- 99 Prolonged QT interval...QTc >500mS Normal sinus rhythm at a rate of 84 with interventricular conduction delay QRS of 111 ms. Normal MN. Prolonged QTc at 507 ms. Compared to prior QTc has improved slightly. T wave flattening in V2. N o ST segment abnormalities. Compared to prior dated 2 years ago QTc has improved.
[2023-09-06 11:23] LABS: ALT 16 U/L (14-59); AST 11 U/L (15-37); Albumin 3.4 g/dL (3.4-5.0); Alkaline Phosphatase 132 U/L (46-116); Anion Gap 13.3 mmol/L (3-11); BUN 20 mg/dL (7-18); Bilirubin, Total 0.82 mg/dL (0.2-1.0); CO2 22.7 mmol/L (21.0-32.0); Calcium 8.9 mg/dL (8.5-10.1); Chloride 104 mmol/L (98-107); Estimated GFR 56.25 (mL/min/1.73m2); Glucose 114 mg/dL (74-106); Sodium 140 mmol/L (136-145); Total Protein 7.1 g/dL (6.4-8.2)
[2023-09-06 11:25] LABS: Potassium 2.9 mmol/L (3.5-5.1)
--- NOTE | 2023-09-06 11:30 | DI.CT_ITS ---
Exam(s) CT ABDOMEN PELVIS W EXAM: CT ABDOMEN PELVIS W CLINICAL HISTORY: Diarrhea decreased appetite. TECHNIQUE: Imaging Protocol: Axial computed tomography images with coronal and sagittal reformatted images were created and reviewed CONTRAST MATERIAL: Intravenous: Omnipaque 350 Contrast volume:100 ml Oral: / no COMPARISON: CT CT CHEST PE CTA from 11/04/2019 FINDINGS: ABDOMEN and PELVIS: Lung Bases: No acute findings. Heart mildly enlarged. Severe coronary artery calcifications. Liver: Normal density. No suspicious mass. Gallbladder and biliary tract: No radiodense calculus. No biliary dilation. Pancreas: Normal density. No abnormal calcifications or inflammatory process. No evidence of mass. Spleen: Normal. Kidneys: Normal size, contour and axis. No radiodense stones. No obstructive uropathy. No suspicious masses seen. Adrenal glands: No masses seen. Vasculature: Abdominal aorta non-dilated. Atherosclerotic changes. Soft tissues: Unremarkable. Bladder: No gross wall thickening. No calculi.No focal mass. Bowel: The colon contains little stool. Sigmoid diverticulosis. No evidence of diverticulitis. No obstruction. No bowel wall thickening. Appendix normal. Peritoneal cavity: No ascites. No focal collection. No mesenteric inflammatory response. Bones: Degenerative disc changes greatest from L1-2 through L3-4. Reproductive organs: Unremarkable. Lymph nodes: No pathologically enlarged lymph nodes. IMPRESSION:: No acute abnormality in the abdomen or pelvis. RADIATION DOSE DELIVERED: Total DLP DATA REPOSITORY: All CT scans at this facility are submitted to the National Radiology Data Registry (NRDR) Dose Index Registry (DIR) with the [employer] (ACR). RADIATION OPTIMIZATION: All CT scans at this facility use at least one of these dose optimization te chniques: automated exposure control; mA and/or kV adjustment per patient size (includes targeted exa ms where dose is matched to clinical indication); or iterative reconstruction.
[2023-09-06] MEDS: Potassium Chloride 20 MEQ TABCR 40 MEQ PO (11:51)
[2023-09-06] MEDS: Omnipaque 350 MG/ML 100 ML BTL IJ (12:08)
[2023-09-06] MEDS: Normal Saline - Diluent 50 ML VIAL IJ (12:09)
--- NOTE | 2023-09-06 12:44 | DI.VRAD_ITS ---
PROCEDURE INFORMATION: Exam: CT Abdomen And Pelvis With Contrast Exam date and time: 09/06/2023 12:09 PM Age: 83 years old Clinical indication: Other: Diarrhea decreased appetite TECHNIQUE: Imaging protocol: Computed tomography of the abdomen and pelvis with contrast. Contrast material: OMNIPAQUE; Contrast volume: 100 ml; Contrast route: INTRAVENOUS (IV); COMPARISON: CR XR PELVIS AP 01/26/2022 4:49 PM FINDINGS: Lungs: Visualized lung bases are clear. Liver: Normal. No mass or intrahepatic biliary ductal dilatation. Gallbladder and biliary ducts: Normal. No calcified stones. No ductal dilation. Pancreas: Normal. No mass or ductal dilation. Spleen: Normal. No splenomegaly. Adrenal glands: Normal. No mass. Kidneys and ureters: Normal. No hydronephrosis, calculus, cyst or mass. Stomach and bowel: Stomach and small bowel appear within normal limits. There are scattered diverticula in the distal colon without signs of acute inflammation. Appendix: No evidence of appendicitis. Intraperitoneal space: Unremarkable. No free air. No significant fluid collection. Vasculature: Moderate aortoiliac atherosclerosis. No aneurysm. Lymph nodes: No enlarged retroperitoneal or mesenteric lymph nodes. Urinary bladder: No mass or wall thickening. Reproductive: Unremarkable as visualized. Bones/joints: Lumbar spondylosis. Soft tissues: Unremarkable. IMPRESSION: No acute abnomality in the abdomen or pelvis. Incidental findings as above. Dictated and Authenticated by: Cy Garza MD. Ordering:RELL Owens MD
--- NOTE | 2023-09-06 12:50 | NUR.NOTE ---
Referral faxed to [facility] Internal Medicine for Pt to be seen by Primary care Provider, Jinny Camacho within 2 days to recheck Potassium.
== END 2023-09-06 13:20 | disposition home or self-care (01) ==
PROVIDERS: Emergency Provider Emergency Medicine; PCP Nurse Practitioner
DX: E87.6 Hypokalemia (principal); R19.7 Diarrhea, unspecified; I13.0 Hypertensive heart and chronic kidney disease with heart failure and stage 1 through stage 4 chronic kidney disease, or unspecified chronic kidney disease; I50.9 Heart failure, unspecified; N18.9 Chronic kidney disease, unspecified; E05.00 Thyrotoxicosis with diffuse goiter without thyrotoxic crisis or storm; R94.31 Abnormal electrocardiogram [ECG] [EKG]; Z87.891 Personal history of nicotine dependence
CPT/HCPCS: 80053; 87426; 93005; 99285; 74177; 85025; 93010; 99284; J3490

== ENCOUNTER 2023-09-11 14:21 | Outpatient (REF) | payer MEDICARE, SELFPAY ==
[2023-09-11 16:02] LABS: Anion Gap 14.8 mmol/L (3-11); BUN 20 mg/dL (7-18); CO2 19.2 mmol/L (21.0-32.0); CREATININE 1.1 mg/dL (0.55-1.02); Calcium 8.4 mg/dL (8.5-10.1); Chloride 106 mmol/L (98-107); Estimated GFR 50.17 (mL/min/1.73m2); Glucose 171 mg/dL (74-106); Magnesium 1.8 mg/dL (1.8-2.4); Potassium 3.6 mmol/L (3.5-5.1); Sodium 140 mmol/L (136-145)
[2023-09-11 16:15] LABS: Abs Immature Grans 0.04 10^3/uL (0.0-0.06); Absolute Basophil Count 0.07 10^3/uL (0.0-0.2); Absolute Eosinophil Count 0.25 10^3/uL (0.0-0.7); Absolute Lymphocyte Count 2.26 10^3/uL (1.2-3.4); Absolute Monocyte Count 1.48 10^3/uL (0.1-0.8); Absolute Neutrophil Count 5.74 10^3/uL (1.2-6.7); Basophils % 0.7 %; Eosinophils % 2.5 %; HCT 39.3 % (36.0-46.0); HGB 13.3 g/dL (11.2-15.7); Immature Grans % 0.4 %; MCH 29.5 pg (27.0-33.0); MCHC 33.8 % (32.0-36.0); MCV 87 fL (80-95); MPV 10.2 fL (8.0-11.0); Neutrophils % 58.4 %; Platelet Count 290 10^3/uL (130-400); RBC 4.51 10^6/uL (3.93-5.22); RDW 13.6 % (11.7-14.6); WBC 9.84 10^3/uL (4.4-10.8)
== END 2023-09-11 14:22 | disposition home or self-care (01) ==
LOC: LBN 14:21
PROVIDERS: PCP Nurse Practitioner; Visit Provider Student in an Organized Health Care Education/Training Program
DX: R19.7 Diarrhea, unspecified (principal); R68.89 Other general symptoms and signs; R53.83 Other fatigue; Z86.2 Personal history of diseases of the blood and blood-forming organs and certain disorders involving the immune mechanism; E87.6 Hypokalemia; E05.00 Thyrotoxicosis with diffuse goiter without thyrotoxic crisis or storm; Z91.89 Other specified personal risk factors, not elsewhere classified; E86.0 Dehydration
CPT/HCPCS: 80048; 83735; 85025

== ENCOUNTER 2023-09-15 08:20 | Emergency (ER) | payer MEDICARE, SELFPAY ==
[2023-09-15] VITALS (7 sets, daily range): BP systolic 106–121; BP diastolic 44–93; PULSE 77–94; RESP 18; TEMP 36.9; O2SAT 95–98
--- OUTSIDE RECORDS SUMMARY | 2023-09-15 08:23 | XMS_ITS | Encounter Summary ---
Author Organization [facility] Address [address] [place] [address] Care Team Providers Care Small Piece Cutter Name Role Phone Jinny Camacho NATURAL GAS TECHNICIAN Primary Care Provider [phone] Reason for Visit * Reason Onset Date Comments Appointment Related 05/20/2022 Encounter Details Date Type Department Care Team (Late st Contact Info) Description 05/20/2022 Telephone [facility] Dermatology 5th [address] [address] Kim Maravilla, RN Appointment Related Social History [...] Info) Description 10/27/2023 12:50 EDT Office Visit [facility] Dermatology 3rd Floor [facility] [address] [place], [place] [phone] Nikita Kumari PA-C 111 [facility], [address] [place] [phone] documented as of this encounter Visit Diagnoses Not on filedocumented in this encounter Care Teams Small Piece Cutter Relationship Specialty Start Date End Date Jinny Camacho NP [address] [place] [address] PCP - General Family Medicine - Primary Care 12/03/21 documented as of this encounter
--- OUTSIDE RECORDS SUMMARY | 2023-09-15 08:23 | XMS_ITS | Referral Summary ---
Author Organization [facility] Address [address] [place] [address] Care Team Providers Care Lining Marker Name Role Phone JaniceJinny ROLLER STAINER Primary Care Provider [phone] Allergies No known active allergies Medications Medication [...] Overview: Added automatically from request for surgery [id number] Social History Tobacco Use Types Packs/Day Years [...] Info) Description 10/27/2023 12:50 EDT Office Visit [facility] Dermatology 3rd [place] [address] Nikita Kumari, PARogeC 111 [facility], [address] [place] [phone] Care Teams Lining Marker Relationship Specialty Start Date End Date Jinny Camacho NP [address] [place] [address] PCP - General Family Medicine - Primary Care 12/03/21
--- OUTSIDE RECORDS SUMMARY | 2023-09-15 08:23 | XMS_ITS | Encounter Summary ---
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 Possible stent placement for Repair of lacrimal drainage system [42514 (CPT??)] Surgery Details Date/Time Status Location OR Service Patient Class Case Class Case Type Trauma Case? 12/10/21 1115 Posted [facility] OR FOR [facility] [...] Elias (if unsure of appointment time, call [phone]) - If you have decreasing vision, uncontrollable pain, or significant bleeding call [phone] Elias documented in this encounter Medications [...] 20 mEq by mouth 2 times daily. lzswkgpc-bfmjoaxob-dzka methasone (MAXITROL) ophthalmic ointment Apply to all wounds 3 times daily for 10 days 3.5 g 1 12/10/2021 05/16/2022 documented as of this encounter Ordered Prescriptions Prescription Sig Dispensed Refills Start Date End Da te wjpnushd-yimpnumyx-yaphjhc hasone (MAXITROL) ophthalmic ointment Apply to all wounds 3 times daily for 10 days 3.5 g 1 12/10/2021 05/16/2022 myltegbu-shpkkpqhg-kzraaps hasone (MAXITROL) ophthalmic ointment Apply to all wounds 3 times daily for 10 days 3.5 g 1 12/10/2021 12/10/2021 documented in this encounter Discharge Disposition Disposition Code Departure Means Destination Home or Self Detention documented in this encounter H&P Notes * [...] Elias MD 12/10/2021 11:49 Source Note - GYM MANAGER, SCAN 2 - 12/09/2021 16:14 EDT documented [...] diagnosis: same ?? Surgeon: Whitley Elias MD Chemical Mixer: Naz Mcneill ?? Anesthesia: General anesthesia with [...] - 12/10/2021 1600 EDT Date: 12/10/2021 Location: [facility] OR Name: Caitlin Marte, : [...] thickness (Active) [REMOVED] Non-Surgical Airway (Removed) Staff: Pcb Designer: Obdulia Zhu RN; Arun Sherman RN Scrub [...] 1439 EDT Date: 12/10/2021 [facility] Name: Caitlin Marte, : [...] 12/10/21 Incision Nose Full thickness (Active) Staff: Pcb Designer: Obdulia Zhu RN; Arun Sherman RN Scrub [...] Info) Description 10/27/2023 12:50 EDT Office Visit [facility] Dermatology 3rd Floor [address] [address] Nikita Kumari PA-C [address] [place] [address], [address] [place] [phone] documented as of this encounter Procedures Procedure [...] EDT) 12/12/2021 11:4 3 EDT Scan 2 Veterans Adviser PROCEDURE/MINOR CHIQUITA GICAL ORDERABLES documented in this [...] New Bag 12/10/2021 12:02 EDT 25 mL/hr pvnkyuqz-kkqqhneit-cxgstezgmcmfn (MAXITROL) ophthalmic ointment PRN, Starting on Thu12/10/21 at 1342, Until Thu12/10/21 at 1442, Intraprocedure Given 12/10/2021 13:42 EDT 3,500 mg oxymetazoline (AFRIN) 0.05 % nasal spray PRN, Starting on Thu12/10/21 at 1341, Until Thu12/10/21 at 1442, Routine, Intraprocedure Given 12/10/2021 13:41 EDT 1 [place] Other sodium chloride 0.9 % irrigation PRN, Starting on Thu12/10/21 at 1341, Until Thu12/10/21 at 1442, Routine, Intraprocedure Given 12/10/2021 13:41 EDT 500 mL documented in this encounter Discontinued Medications Medication Sig Discontinue Reason Start Date End Da te vvbzhuir-txlgohkvr-irm amethasone (MAXITROL) ophthalmic ointment Apply to all [...] Intraprocedure 1342 (Given - Provid er: Whitley Eilas MD) bupivacaine-EPINEPHrine (PF) 0.5 %-1:200,000 injection (CANCELED) PRN, Starting on Thu12/10/21 at 1340, Until Thu12/10/21 at 1442, Routine, Intraprocedure 1340 (Given - Provid er: Whitley Elias MD) acdxbrwz-lqybmdkcv-tkthbmkipampe (MAXITROL) ophthalmic ointment (CANCELED) PRN, Starting on [...] 12/10/2021 documented in this encounter Care Teams Wax Bleacher Relationship Specialty Start Date End Date Jinny Camacho NP [address] [place] [address] PCP - General Family Medicine - Primary Care 12/03/21 documented as of this encounter
--- OUTSIDE RECORDS SUMMARY | 2023-09-15 08:23 | XMS_ITS | Clinical Summary ---
Author Organization [facility] Address [address] [place] [address] Care Team Providers Care Retail Store Clerk Name Role Phone JaniceJinny cox SPRING REPAIRER HELPER HAND Primary Care Provider [phone] Allergies No known active allergies Medications Medication [...] Overview: Added automatically from request for surgery [id number] Surgical History Surgery Date Site/Laterality Comments CATARACT [...] Info) Description 10/27/2023 12:50 EDT Office Visit [facility] Dermatology 3rd [place] [address] Nikita Kumari PA-C [address] [place] [address], [address] [place] [phone] Health Maintenance Due Date Last Done Comments RSV Immunization ( o r 60+ Years) (1 - 1-dose 60+ series) 2001 Fall Risk Screening 2006 COVID-19 Vaccine (2022-24 season) 2022 Care Teams Retail Store Clerk Relationship Specialty Start Date End Date Jinny Camacho NP [address] [place] [address] PCP - General Family Medicine - Primary Care 12/03/21
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
--- OUTSIDE RECORDS SUMMARY | 2023-09-15 08:23 | XMS_ITS | Encounter Summary ---
Author Organization [facility] Address [address] [place] [address] Care Team Providers Care Customer Contact Representative Name Role Phone JaniceJinny GRAIN WEIGHER Primary Care Provider [phone] Reason for Visit * Reason Comments Follow-up Skin lesions Encounter Details Date Type Department Care Team (Late st Contact Info) Description 10/29/2022 10:50 EDT Office Visit [facility] Dermatology 3rd Floor [address] [phone] Nikita Kumari PA-C 111 [facility], [address] [place] [address] History of basal cell carcinoma [...] encounter Patient Instructions * Patient Instructions* Nikita Kumari PA-C - 10/29/2022 10:50 EDT WOUND CARE [...] discomfort. Tylenol, taken as directed by the early childhood lead teacher, will help relieve pain. If Tylenol does [...] choose to look at your results in [email or web address] prior to our office contacting you, that is your right and choice. Our office policy is to have your provider or the provider???s assistant front office manager contact you with your results and any [...] not call the office or send a [email or web address] message asking to discuss them. Providers are seeing patients during the day and cannot answer calls during clinic time or off hours/weekends. Unless it is an emergency, the laborer concrete plant provider will not review biopsy and/ or lab results. Thank you for entrusting us with your care. [facility]- Dermatology documented in this encounter Progress Notes [...] PATIENT INFORMATION: Caitlin Marte : MRN: [id number] SURGEON: Nikita Kumari PA-C The indication, risks, [...] at the time of the call. JEREL SCHULTZ MA 16:26 10/31/2022 documented in this encounter Plan of Treatment Upcoming Encounters Date Type Department Care Team (Late st Contact Info) Description 10/27/2023 12:50 EDT Office Visit [facility] Dermatology 3rd Floor [facility] [address] [place], [place] [phone] Nikita Kumari PA-C 111 [facility], [facility], [address] [place] [address] documented as of this encounter [...] management options, if applicable. 10/31/2022 10:36 EDT [facility] Final Diagnosis A. SKIN OF FOREHEAD, RIGHT SUPERIOR, SHAVE BIOPSY: - Basal cell carcinoma, superficial and nodular types, pigmented. See comment. - Lesion does not extend to biopsy edges in the plane of sections examined. - Lesion measures approximately 0.2 mm to the biopsy base. - Lesion measures approximately 0.8 mm to the biopsy edge. 10/31/2022 10:36 EDT [facility] Diagnosis Comment The findings are those of basal cell carcinoma, best appreciated on deeper sections. 10/31/2022 10:36 T [facility] Attestation By the signature below, the attending physician certifies that they have 1) personally conducted a gross and/or microscopic examination of the described specimen(s), and/or personally interpreted the results of laboratory testing of the described specimen(s), and 2) personally rendered or confirmed the above diagnosis. 10/31/2022 10:36 [facility] at 1036 Microscopic Description Emanating [...] islands and stroma. SOX-10 ALK PHOS (SP267, [employer]) shows a melanocytes to be generally normal [...] performance characteristics have been determined by [facility] and/or by the referring laboratory. The positive [...] high complexity clinical laboratory testing.? 10/31/2022 10:36 [facility] Clinical History Irregular pink-brown low papule ; DDx: Pigmented BCC vs AK vs lentigo R/O LM; clinical diagnosis code: D48.5 10/31/2022 10:36 [facility] Gross Description A. Received [...] Gabi Molinai 10/30/2022 8:14 10/31/2022 10:36 EDT [facility] Performing Lab [facility] 10:36 EDT [facility] Scanned Images 10/31/2022 10:36 EDT [facility] Tissue SPECIMEN FROM SKIN / Unknown 10/29/2022 12:12 EDT 10/29/2022 16:24 EDT Nikita Kumari PA-C PATHOLOGY ORDERAB LES [facility] [address] [place] [address] documented in this encounter Visit Diagnoses Diagnosis History of basal cell carcinoma- Primary Personal history of other malignant neoplasm of skin Diffuse photodamage of skin Other chronic dermatitis due to solar radiation Seborrheic keratoses Neoplasm of uncertain behavior of skin documented in this encounter Care Teams Customer Contact Representative Relationship Specialty Start Date End Date Jinny Camacho NP [address] [place] [address] PCP - General Family Medicine - Primary Care 12/03/21 documented as of this encounter
--- OUTSIDE RECORDS SUMMARY | 2023-09-15 08:23 | XMS_ITS | Encounter Summary ---
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 Possible stent placement for Repair of lacrimal drainage system PLASTIC REPAIR, CANALICULI Referral ID Status Reason Start Date Expiration Date Visits Re quested Visits Authorized [id number] 12/10/2021 02/22/2022 1 1 Encounter Details Date Type Department Care Team (Late st Contact Info) Description 12/10/2021 8:30 EDT Office Visit [facility] Dermatology 5th Floor [address] [address] Dodie Patricia MD 111 [facility], [address] [place] [phone] Basal cell carcinoma (BCC) of canthus of [...] Dodie Patricia MD Dermatology & Mohs Surgery press leader, Dermatology Division [facility] 12/10/2021 16:59 MOHS OPERATIVE REPORT Patient Name: Caitlin Marte Date of Service: December 09, 2021 Surgeon and Pathologist: Dodie Patricia MD [id number] Developer: Domingo Hawley MD Case #: [id number] Mohs [...] handed personally by the doctor to the lamination technician for frozen sectioning. The tissue was [...] Dodie Patricia MD Dermatology & Mohs Surgery press leader, Dermatology Division [facility] 12/10/2021 17:00 documented in this encounter Plan of Treatment Upcoming Encounters Date Type Department Care Team (Late st Contact Info) Description 10/27/2023 12:50 EDT Office Visit [facility] Dermatology 3rd Floor [facility] [address] [place] [address] Nikita Kumari PA-C 111 [facility], [facility], [facility] [address] [place] [address] documented as of this encounter Procedures Procedure Name Priority Date/Time Associated Diagnosis Comments PROCEDURE REPORTS - SCANNED 12/17/2021 13:33 EDT documented in this encounter Results * PROCEDURE REPORTS - SCANNED (12/17/2021 13:33 EDT) 12/17/2021 13:3 3 EDT Scan 2 Java Golden Gate Developer PROCEDURE/MINOR CHIQUITA GICAL ORDERABLES documented in this encounter Visit Diagnoses Diagnosis Basal cell carcinoma (BCC) of canthus of right eye- Primary documented in this encounter Care Teams Gear Cutting Machine Operator Relationship Specialty Start Date End Date Jinny Camacho NP [address] [place] [address] PCP - General Family Medicine - Primary Care 12/03/21 documented as of this encounter
--- OUTSIDE RECORDS SUMMARY | 2023-09-15 08:23 | XMS_ITS | Encounter Summary ---
Author Organization [facility] Address [address] [place] [address] Care Team Providers Care Launch Manager Name Role Phone JaniceJinny BRAKE OPERATOR HEAVY DUTY Primary Care Provider [phone] Reason for Visit * Reason Onset Date Comments Appointment Related 01/21/2022 Encounter Details Date Type Department Care Team (Late st Contact Info) Description 01/21/2022 Telephone [facility] Ophthalmology - [address] [phone] Whitley Elias MD 111 [facility], [address] [place] [address] Appointment Related Social History Tobacco [...] Info) Description 10/27/2023 12:50 EDT Office Visit [facility] Dermatology 3rd Floor [address] [address] Nikita Kumari PA-C 111 [facility], [address] [place] [phone] documented as of this encounter Visit Diagnoses Not on filedocumented in this encounter Care Teams Launch Manager Relationship Specialty Start Date End Date Jinny Camahco NP [address] [place] [address] PCP - General Family Medicine - Primary Care 12/03/21 documented as of this encounter
--- OUTSIDE RECORDS SUMMARY | 2023-09-15 08:23 | XMS_ITS | Encounter Summary ---
Author Organization [facility] Address [address] [place] [address] Care Team Providers Care Oyster Grower Name Role Phone JaniceJinny SKIVING MACHINE OPERATOR Primary Care Provider [phone] Reason for Visit * Reason Comments Post-OP Follow Up Encounter Details Date Type Department Care Team (Late st Contact Info) Description 12/16/2021 12:30 EDT Post-op Visit [facility] Ophthalmology - [address] [id number] Whitley Elias MD 111 [facility], Level 5 [place] [address] Basal cell carcinoma (BCC) of [...] removal) Neurologic: Psychiatric: Endocrine: Hematologic: Immunologic: NL Leach Cell Operator: Exposures: Other: Attestation: Allergies include: Patient has [...] mg by mouth 3 times daily. ??? zoohkixw-jgvcyhccf-fpkcmbnjinnpl (MAXITROL) ophthalmic ointment Apply to all wounds [...] Info) Description 10/27/2023 12:50 EDT Office Visit [facility] Dermatology 3rd Floor [address] [phone] Nikita Kumari PA-C 111 [facility], [address] [place] [address] documented as of this encounter [...] quiet Iris Round and reactive Care Teams Oyster Grower Relationship Specialty Start Date End Date Jinny Camacho, GHAZALA [address] [place] [address] PCP - General Family Medicine - Primary Care 12/03/21 documented as of this encounter
--- OUTSIDE RECORDS SUMMARY | 2023-09-15 08:23 | XMS_ITS | Encounter Summary ---
Author Organization [facility] Address [address] [place] [address] Care Team Providers Care Drying Machine Tender Name Role Phone JaniceJinny cox TELEPHONE ORDER DISPATCHER Primary Care Provider [phone] Reason for Visit * Reason Onset Date Comments Appointment Related 01/21/2022 Encounter Details Date Type Department Care Team (Late st Contact Info) Description 01/21/2022 Telephone [facility] Dermatology 3rd Floor [address] [phone] Dodie Patricia MD 111 [facility], Level 5 [place] [address] Appointment Related Social History Tobacco [...] Info) Description 10/27/2023 12:50 EDT Office Visit [facility] Dermatology 3rd Floor [facility] [address] [place], [place] [address] Nikita Kumari PA-C 111 [facility], Level 5 [place] [phone] documented as of this encounter Visit Diagnoses Not on filedocumented in this encounter Care Teams Drying Machine Tender Relationship Specialty Start Date End Date Jinny Camacho NP [address] [place] [address] PCP - General Family Medicine - Primary Care 12/03/21 documented as of this encounter
--- OUTSIDE RECORDS SUMMARY | 2023-09-15 08:23 | XMS_ITS | Encounter Summary ---
Author Organization [facility] Address [address] [place] [address] Care Team Providers Care Factory Assembler Name Role Phone Jinny Camacho Wagner COMPRESSED GAS TESTER Primary Care Provider [phone] Reason for Visit * Reason Onset Date Comments Appointment Related 01/21/2022 Calling to ariella yeboah appointment with Dr. Whitley Elias in Ophthalmology January 23 at 10:30am. Encounter Details Date Type Department Care Team (Late st Contact Info) Description 01/21/2022 Telephone [facility] Ophthalmology - [address] [address]151 Whitley Elias MD 111 [facility], Level 5 [place] [address] Appointment Related (Calling to cancel [...] Miscellaneous Notes * Telephone Encounter - Maximo Salas RN - 01/22/[address] Elias to review timeframe. Maximo Salas RN 01/22/2022 8:45 * Telephone Encounter - Margi Ram - 01/21/2022 1746 EST PAS Message:Caitlin Rosanna, : 42 calling to cancel appointment scheduled January 23 at 10:30am with Dr. Whitley Elias in Ophthalmology WP5. Patient would like the office to call her back to reschedule in February. Her phone number is [phone]. documented in this encounter Plan of Treatment Upcoming Encounters Date Type Department Care Team (Late st Contact Info) Description 10/27/2023 12:50 EDT Office Visit [facility] Dermatology 3rd Floor [address] [address] Nikita Kumari, PARogeC 111 [facility], [facility] [address] [place] [phone] documented as of this encounter Visit Diagnoses Not on filedocumented in this encounter Care Teams Factory Assembler Relationship Specialty Start Date End Date Jinny Camacho NP [address] [place] [address] PCP - General Family Medicine - Primary Care 12/03/21 documented as of this encounter
--- OUTSIDE RECORDS SUMMARY | 2023-09-15 08:23 | XMS_ITS | Encounter Summary ---
Author Organization [facility] Address [address] [place] [address] Care Team Providers Care Laboratory Administrative Director Name Role Phone JaniceJinny FOREIGN LAW CONSULTANT Primary Care Provider [phone] Reason for Visit * Reason Comments Post-OP Follow Up Encounter Details Date Type Department Care Team (Late st Contact Info) Description 02/28/2022 14:30 EST Post-op Visit [facility] Ophthalmology - [address] [phone] Whitley Elias MD 111 [facility], Level 5 [place] [address] Basal cell carcinoma (BCC) of [...] NL Endocrine: NL Hematologic: NL Immunologic: NL Filament Tester: Menopause Exposures: None Other: Attestation: Allergies include: [...] Visit [facility] Dermatology 3rd Floor [address] [address] Nikita Kumari, DANDRE [address] [place] [address], [facility] 5 [place] [address] documented as of this encounter [...] reactive Round and rusty ctive Care Teams Laboratory Administrative Director Relationship Specialty Start Date End Date Jinny Camacho, FOREIGN LAW CONSULTANT [address] [place] [address] PCP - General Family Medicine - Primary Care 12/03/21 documented as of this encounter
--- OUTSIDE RECORDS SUMMARY | 2023-09-15 08:23 | XMS_ITS | Encounter Summary ---
Author Organization [facility] Address [address] [place] [address] Care Team Providers Care Cordwood Cutter Helper Name Role Phone Jinny Camacho TRENCH PIPE LAYER Primary Care Provider [phone] Reason for Visit * Reason Comments Wound Check Right cheek, left ch in Encounter Details Date Type Department Care Team (Late st Contact Info) Description 05/16/2022 13:30 EDT Nurse Only [facility] Dermatology 5th [address] [address] Nursing Team, [facility] Dermatology Mohs Basal cell carcinoma (BCC) of [...] Kim Maravilla RN - 05/16/2022 13:30 EDT [facility] DEPARTMENT OF DERMATOLOGY Wound Care Instructions [...] Info) Description 10/27/2023 12:50 EDT Office Visit [facility] Dermatology 3rd Floor [address] [address] Nikita Kumari PA-C 111 [facility], Level [address] [place] [address] documented as of this encounter Visit Diagnoses Diagnosis Basal cell carcinoma (BCC) of chin- Primary Basal cell carcinoma (BCC) of right cheek documented in this encounter Discontinued Medications Medication Sig Discontinue Reason Start Date End Da te etvfipcl-qlhkboksm-mjwwt ethasone (MAXITROL) ophthalmic ointment Apply to all wounds 3 times daily for 10 days Therapy completed 12/10/2021 05/16/2022 documented as of this encounter Care Teams Cordwood Cutter Helper Relationship Specialty Start Date End Date Jinny Camacho NP [address] [place] [address] PCP - General Family Medicine - Primary Care 12/03/21 documented as of this encounter
--- OUTSIDE RECORDS SUMMARY | 2023-09-15 08:23 | XMS_ITS | Encounter Summary ---
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 Possible stent placement for Repair of lacrimal drainage system PLASTIC REPAIR, CANALICULI Referral ID Status Reason Start Date Expiration Date Visits Re quested Visits Authorized [id number] 12/10/2021 02/22/2022 1 1 Encounter Details Date Type Department Care Team (Late st Contact Info) Description 12/10/2021 12:09 EDT Anesthesia Event 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 Possible stent placement for Repair of lacrimal drainage system (Right: Eye) Roberto Montilla MD 12/10/21 1209 12/10/21 1451 Events Date [...] - 12/10/2021 1451 EDT Patient: Caitlin Edward [facility] Vital signs were reviewed with the recovery nurse. [facility] Vitals Value Taken Time BP 142/77 12/10/21 [...] during procedure: OR Anesthesiologist: Roberto Montilla MD Resident/ELECTROPLATING WORKER: Ramirez Cotto AA Performed: anesthesiologist and resident/ELECTROPLATING WORKER/AA Indications and Patient Condition Indications for airway [...] Info) Description 10/27/2023 12:50 EDT Office Visit [facility] Dermatology 3rd Floor [facility] [address] [place] [address] Nikita Kumari PA-C 111 [facility], [facility], Level 5 [place] [address] documented as of this encounter Procedures Procedure Name Priority Date/Time Associated Diagnosis Comments ANESTHESIA INTUBATION Routine 12/10/2021 12:19 EDT documented in this encounter Results * MD AN ELECTIVE ENDOTRACHEAL AIRWAY (12/10/2021 12:19 EDT) Narrative Ramirez Cotto AA - 12/10/2021 12:19 EDT Ramirez Cotto AA ? 12/10/2021 12:35 Airway Date/Time: 12/10/2021 12:19 Urgency: elective Airway not difficult General Information and Staff Patient location during procedure: OR Anesthesiologist: Roberto Montilla MD Resident/ELECTROPLATING WORKER: Ramirez Cotto AA Performed: anesthesiologist and resident/ELECTROPLATING WORKER/AA Indications and Patient Condition Indications for airway [...] mg documented in this encounter Care Teams Lead Programmer Relationship Specialty Start Date End Date Jinny Camacho NP [address] [place] [address] PCP - General Family Medicine - Primary Care 12/03/21 documented as of this encounter
--- OUTSIDE RECORDS SUMMARY | 2023-09-15 08:23 | XMS_ITS | Encounter Summary ---
Author Organization [facility] Address [address] [place] [address] Care Team Providers Care Barrel Coater Name Role Phone JaniceJinny PEWTER FABRICATOR Primary Care Provider Reason for Visit * Reason Comments Basal Cell Carcinoma Right cheek * Office Procedure (Routine) - Authorization Not Required Specialty Diagnoses / Procedures [facility] Referred To Contact Diagnoses BCC (basal cell carcinoma of skin) M1 BCC Procedures [place] ADJ TISS XFER LID,NOS,EAR <10 SQCM OH ADJ TISS XFER ANY AREA,30.1-60 SQCM OH SPLIT GRFT,HEAD,FAC,HAND,FEET <100 SQCM OH SPLIT GRFT,HEAD,FAC,HAND,FEET EA 100 SQCM OH FULL THICK GRFT NOS,EAR,LID <20 SQCM OH FULL THICK GRFT NOS,EAR,LID ADD 20SQ OH FORM SKIN PEDICLE FLAP LID,EAR,NOSE OH COMPOSITE SKIN GRAFT OH MOHS, 1 STAGE, HEAD/NECK/HAND/FEET/GENTI AL MOHS [facility] Dermatology [address] [place] [address] Dodie Patricia MD 111 [facility], Level [address] [place] [address] Referral ID Status Reason Start Date Expiration Date Visits Requested Visits Authorized [id number] Authorization Not Required 01/23/2022 1 1 Encounter Details Date Type Department Care Team (Late st Contact Info) Description 04/15/2022 10:30 EST Office Visit [facility] Dermatology 5th [address] [address] Dodie Patricia MD [address] [place] [address], [address] [place] [address] Basal cell carcinoma (BCC) of [...] have one), and don't bend over to pickers material handlers objects or tie shoes for a few [...] rapidly swells. CONTACT INFORMATION: To reach the federal mediation commissioner physician: During office hours: 8:00 am - 5:00 PM Thursday through Thursday Call: [phone] Ask to speak with a surgery nurse AFTER HOURS/WEEKENDS/HOLIDAYS: First call Dr. Dodie Patricia's cell phone: [phone]; if unable to reach Dr. Patricia, Call [phone] for the MOHS surgeon federal mediation commissioner. LONG-TERM WOUND CARE INSTRUCTIONS *Once the bandages [...] Patricia MD Dermatology & Mohs Surgery Associate Scrap Iron Cutter, Mohs Surgery Fellowship reconciliation specialist, Dermatology Division [facility] 04/15/2022 15:38 Risk factors: Pacemaker/ICD: none Anticoagulants: none Total joint replacements/valves: none Allergies: Patient has No Known Allergies. Immunosuppression: none Smoking status: reports that she has quit smoking. She has never used smokeless tobacco MOHS OPERATIVE REPORT Patient Name: Caitlin Marte Date of Service: April 15, 2022 Surgeon and Pathologist: Dodie Patricia MD Outboard Motor Tester: Domingo Hawley MD Case #: [id number] Mohs [...] handed personally by the doctor to the mixing technician for frozen sectioning. The tissue was [...] INFORMATION: Caitlin Marte SURGEON: Dodie Patricia MD FLOOR WORKER TRANSFER BAY: Domingo Hawley MD and Jonn Nolasco MD [...] BIOPSY PROCEDURE NOTE PATIENT INFORMATION: Caitlin Marte [id number] 1940 DATE OF PROCEDURE: 04/15/2022 SURGEON: Dodie Patricia MD FLOOR WORKER TRANSFER BAY: Domingo Hawley MD DIAGNOSIS: Neoplasm of uncertain [...] 2022 Surgeon and Pathologist: Dodie Patricia MD Outboard Motor Tester: Domingo Hawley MD Case #: [id number] Mohs [...] handed personally by the doctor to the mixing technician for frozen sectioning. The tissue was [...] throughout. INTERMEDIATE REPAIR PATIENT INFORMATION: Caitlin Edward [facility] SURGEON: Dodie Patriica MD FLOOR WORKER TRANSFER BAY: Domingo Hawley MD PREOPERATIVE DIAGNOSIS: Defect following [...] Patricia MD Dermatology & Mohs Surgery Associate Scrap Iron Cutter, Mohs Surgery Fellowship reconciliation specialist, Dermatology Division [facility] 04/15/2022 15:39 documented in this encounter Plan of Treatment Upcoming Encounters Date Type Department Care Team (Late st Contact Info) Description 10/27/2023 12:50 EDT Office Visit [facility] Dermatology 3rd Floor [address] [address] Nikita Kumari PA-C [address] [place] [address], Level [address] [place] [address] documented as of this encounter Procedures Procedure Name Priority Date/Time Associated Diagnosis Comments PROCEDURE REPORTS - SCANNED 04/18/2022 7:04 EST documented in this encounter Results * PROCEDURE REPORTS - SCANNED (04/18/2022 7:04 EST) 04/18/2022 7:04 EST Scan 2 Support Staff PROCEDURE/MINOR CHIQUITA GICAL ORDERABLES documented in this encounter Visit Diagnoses Diagnosis Basal cell carcinoma (BCC) of chin- Primary Basal cell carcinoma (BCC) of right cheek Neoplasm of uncertain behavior of skin documented in this encounter Care Teams Barrel Coater Relationship Specialty Start Date End Date Jinny Camacho NP [address] [place] [address] PCP - General Family Medicine - Primary Care 12/03/21 documented as of this encounter
--- OUTSIDE RECORDS SUMMARY | 2023-09-15 08:24 | XMS_ITS | Encounter Summary ---
Author Organization [facility] Address [address] [place] [address] Care Team Providers Care Head Refrigeration Engineer Name Role Phone Unknown, Provider Primary Care Provider Reason for Visit * Reason Onset Date Comments Appointment Related 07/19/2021 Encounter Details Date Type Department Care Team (Late st Contact Info) Description 07/19/2021 Telephone [facility] Ophthalmology - [address] [address] Whitley Elias MD [address] [place] [address], [address] [place] [phone] Appointment Related Social History Tobacco Use Types [...] [facility] Dermatology 3rd Floor [facility] [address] [place], [place] [address] Nikita Kumari PA-C 111 [facility], [facility], [address] [place] [address] documented as of this encounter Visit Diagnoses Not on filedocumented in this encounter Care Teams Head Refrigeration Engineer Relationship Specialty Start Date End Date Unknown, Provider, PCP - General 01/25/21 12/02/21 documented as of this encounter
--- OUTSIDE RECORDS SUMMARY | 2023-09-15 08:24 | XMS_ITS | Encounter Summary ---
Author Organization [facility] [place] [address] Care Team Providers Care Gaming Investigator Name Role Phone Jinny Camacho APRN Primary Care Provider [phone] Reason for Referral * Consultation (Routine) - Closed Specialty Diagnoses / Procedures Referred By Zoya juarez Referred To Contact Endocrinology Diagnoses Basedow's disease Pretibial myxedema Jinny Camacho APRN [address] [place] [address] [facility] [address] [place] [phone] Referral ID Status Reason Start Date Expiration Date V isits Requested Visits Authorized [id number] Closed Consult, Test & Treat PCP Updated and/or Approved 08/12/2022 02/08/2023 6 6 Encounter Details Date Type Department Care Team (Latest Contact Info) Description 09/03/2022 Transcribe Orders eDH Incoming Referrals [phone] Jinny Camacho APRN [address] [place], [place] [id number] Basedow's disease; Pretibial myxedema Social History Tobacco [...] storm documented in this encounter Care Teams Gaming Investigator Relationship Specialty Start Date End Date Jinny Camacho, CELL ATTENDANT [address] [place] [address] PCP - General Internal Medicine 10/04/19 documented as of this encounter
--- OUTSIDE RECORDS SUMMARY | 2023-09-15 08:24 | XMS_ITS | Encounter Summary ---
Author Organization [facility] Address [facility] [place] [address] Care Team Providers Care Rope Twisting Machine Operator Name Role Phone Jinny Camacho ZAINAB Primary Care Provider [phone] Encounter Details Date Type Department Care Team (Late st Contact Info) Description 06/19/2020 Telephone [place] [phone] Jeremías Shirley RN Social History Tobacco Use [...] this letter to Jinny Camacho who is [facility]'s primary care provider. * Telephone Encounter [...] on filedocumented in this encounter Care Teams Rope Twisting Machine Operator Relationship Specialty Start Date End Date Jinny Camacho APRN [address] [facility] [place] [address] PCP - General Internal Medicine 10/04/19 documented as of this encounter
--- OUTSIDE RECORDS SUMMARY | 2023-09-15 08:24 | XMS_ITS | Encounter Summary ---
Author Organization [facility] Address [facility] [place] [address] Care Team Providers Care Private Chef Name Role Phone Jinny Camacho APRN Primary Care Provider [phone] Encounter Details Date Type Department Care Team (Late st Contact Info) Description 08/03/2020 Orders [place] [address] Roman Pizano MD [facility] [place] [address] Hyperthyroidism Social History Tobacco Use Types Packs/Day [...] storm documented in this encounter Care Teams Private Chef Relationship Specialty Start Date End Date Jinny Camacho APRN [address] [place] [address] PCP - General Internal Medicine 10/04/19 documented as of this encounter
--- OUTSIDE RECORDS SUMMARY | 2023-09-15 08:24 | XMS_ITS | Encounter Summary ---
Author Organization [facility] Address [facility] [place] [address] Care Team Providers Care Environmental Services Aide Name Role Phone Jinny Camacho APRN Primary Care Provider [phone] Encounter Details Date Type Department Care Team (Late st Contact Info) Description 05/02/2021 [place] [address] Roman Pizano MD [facility] [place] [address] Hyperthyroidism Social History Tobacco Use Types Packs/Day [...] storm documented in this encounter Care Teams Environmental Services Aide Relationship Specialty Start Date End Date Jinny Camacho APRN [address] [place] [address] PCP - General Internal Medicine 10/04/19 documented as of this encounter
--- OUTSIDE RECORDS SUMMARY | 2023-09-15 08:24 | XMS_ITS | Encounter Summary ---
Author Organization [facility] Address [facility] [place] [address] Care Team Providers Care Washer And Capper Machine Operator Name Role Phone Jinny Camacho ZAINAB Primary Care Provider [phone] Encounter Details Date Type Department Care Team (Late st Contact Info) Description 09/09/2022 2:00 PM EDT Office [place] [address] Gurdeep Duenas MD [facility] [place] [address] Graves disease; Graves' orbitopathy Social History Tobacco [...] Duenas MD - 09/09/2022 2:00 PM EDT [facility] Endocrinology Clinic Follow up Patient Chief complaint: [...] orders and on documentation. Gurdeep Duenas MD Associate Director Of Nursingbakeshop cleaner Endocrinology Section [facility] documented in this encounter Plan of Treatment [...] 2:49 PM EDT) Neutrophils % 45.4 % [facility] Neutr Abs (ANC) 3.86 1.70 - 6.10 x10(3)/mc L [facility] Lymphocytes % 41.3 % [facility] Lymphocytes Abs 3.5(H) 0.9 - 3.2 x10(3)/mc L [facility] Monocytes % 11.1 % [facility] Monocyte Abs 0.9 0.3 - 0.9 x10(3)/mc L [facility] Eosinophils % 1.5 % [facility] Eosinophils Abs 0.1 0.0 - 0.4 x10(3)/mc L [facility] Basophils % 0.6 % [facility] Basophils Abs 0.0 0.0 - 0.1 x10(3)/mc L [facility] Immature Gran % 0.10 % [facility] Comment: Immature granulocytes(IG's)percentage and absolute count will include metamyelocytes, myelocytes, and promyelocytes. Blood smears from CBCs yielding IG's will be scanned manually for concordance. If this scan disagrees with the automated IG or if promyelocytes are noted, a manual differential will be performed. Tg Gran Abs 0.01 0.00 - 0.04 x10(3)/ L [facility] Blood 09/09/2022 2:49 PM EDT 09/09/2022 3:08 PM EDT Narrative Resulting Agency Comment Spec In Lab Gurdeep Duenas MD HEMATOLOGY ORDERABLE S [facility] [place] [address] * Hemogram (09/09/2022 2:49 PM EDT) WBC 8.5 4.0 - 9.5 x10(3)/[facility] RBC 4.36 4.00 - 5.21 x10(6)/[facility] Hemoglobin 12.5 11.7 - 15.5 g/dL [facility] Hematocrit 38.7 35.7 - 45.8 % [facility] MCV 88.8 82.6 - 94.4 [facility] MCH 28.7 27.1 - 32.0 pg [facility] MCHC 32.3 31.7 - 35.0 g/dL [facility] Platelets 216 145 - 357 x10(3)/[facility] RDWSD 44.0 37.0 - 46.0 [facility] RDWCV 13.4 11.5 - 14.1 % [facility] MPV 9.7 7.6 - 12.9 [facility] nRBC % Auto 0.0 % [facility] nRBC Abs Auto 0.000 0.000 - 0.000 x10(3)/[facility] Blood 09/09/2022 2:49 PM EDT 09/09/2022 3:08 PM EDT Narrative Resulting Agency Comment Spec In Lab Gurdeep Duenas MD HEMATOLOGY ORDERABLE S Performing Organization Address [facility] Co de Phone Number [facility] [place] [address] * (ABNORMAL) Thyroid Stimulating Immunoglobulins (09/09/2022 2:49 PM EDT) TSI >40.00(H) <=0.55 IU/L [facility] Blood 09/09/2022 2:49 PM EDT 09/10/2022 7:20 AM EDT Narrative Resulting Agency Comment Spec In Lab Gurdeep Duenas MD IMMUNOLOGY ORDERABLE S Performing Organization Address [facility] Co de Phone Number [facility] [place] [address] * T3 Total (09/09/2022 2:49 PM EDT) T3, Total 153 80 - 200 ng/dL [facility] Blood 09/09/2022 2:49 PM EDT 09/09/2022 3:08 PM EDT Narrative Resulting Agency Comment Spec In Lab Gurdeep Duenas MD CHEMISTRY ORDERABLES Performing Organization Address [facility] Co de Phone Number [facility] [place] [address] * T4, free (09/09/2022 2:49 PM EDT) Free T4 0.97 0.93 - 1.70 ng/dL [facility] Comment: Reference Interval (ng/dL): Females: ??First Trimester: 0.97-1.68 ??Second Trimester: 0.77-1.51 ??Third Trimester: 0.77-1.49 Blood 09/09/2022 2:49 PM EDT 09/09/2022 3:08 PM EDT Narrative Resulting Agency Comment Spec In Lab Gurdeep Duenas MD CHEMISTRY ORDERABLES Performing Organization Address [facility] Co de Phone Number [facility] [place] [address] * (ABNORMAL) TSH (09/09/2022 2:49 PM EDT) TSH 0.03(L) 0.27 - 4.20 mcIU/mL [facility] Comment: Reference Interval (mcIU/mL): Females: ??First Trimester: 0.23-3.88 ??Second Trimester: 0.22-3.90 ??Third Trimester: 0.44-4.66 Blood 09/09/2022 2:49 PM EDT 09/09/2022 3:08 PM EDT Narrative Resulting Agency Comment Spec In Lab Gurdeep Duenas MD CHEMISTRY ORDERABLES Performing Organization Address [facility] Co de Phone Number [facility] [place] [address] documented in this encounter Visit Diagnoses Diagnosis Graves disease 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
--- OUTSIDE RECORDS SUMMARY | 2023-09-15 08:24 | XMS_ITS | Encounter Summary ---
Author Organization [facility] Address [address] [place] [address] Care Team Providers Care Dialysis Social Worker Name Role Phone Unknown, Provider Primary Care Provider [phone] Reason for Visit * Reason Onset Date Comments Other 07/04/2021 Encounter Details Date Type Department Care Team (Late st Contact Info) Description 07/04/2021 Telephone [facility] Ophthalmology - [address] [id number] Whitley Elias MD [address] [place] [address], [address] [place] [phone] Other Social History Tobacco Use Types Packs/Day [...] Info) Description 10/27/2023 12:50 EDT Office Visit [facility] Dermatology 3rd Floor [facility] [address] [place] [address] Nikita Kumari, PARogeC [address] [facility], [facility], [address] [place] [phone] documented as of this encounter Visit Diagnoses Not on filedocumented in this encounter Care Teams Dialysis Social Worker Relationship Specialty Start Date End Date Unknown, Provider, PCP - General 01/25/21 12/02/21 documented as of this encounter
--- OUTSIDE RECORDS SUMMARY | 2023-09-15 08:24 | XMS_ITS | Encounter Summary ---
Author Organization [facility] Address [facility] [place] [address] Care Team Providers Care Train Caller Name Role Phone Jinny Camacho ZAINAB Primary Care Provider [phone] Encounter Details Date Type Department Care Team (Late st Contact Info) Description 10/12/2019 [place] [phone] Jeremías Shirley RN Social History Tobacco Use [...] She was also feeling tired out. Her PETROLEUM SUPPLY SPECIALIST decreased the atenolol to half a tab AM and PM. She started that yesterday and is still feeling tired. She also reports her PETROLEUM SUPPLY SPECIALIST did an EKG which they were going [...] on filedocumented in this encounter Care Teams Train Caller Relationship Specialty Start Date End Date Jinny Camacho APRN [address] [facility] [place] [address] PCP - General Internal Medicine 10/04/19 documented as of this encounter
--- OUTSIDE RECORDS SUMMARY | 2023-09-15 08:24 | XMS_ITS | Encounter Summary ---
Author Organization [facility] Address [place] [address] Care Team Providers Care Diabetes Trainer Name Role Phone Jinny Camacho APRN Primary Care Provider [phone] Encounter Details Date Type Department Care Team (Late st Contact Info) Description 01/21/2023 Telephone [place] [phone] Gurdeep Duenas MD [facility] [place] [address] Social History Tobacco Use Types Packs/Day Years [...] adjust dose of Methimazole. Gurdeep Duenas MD Sprinkler Installermarketing support assistant Endocrinology Section [facility] documented in this encounter Plan of Treatment Not on file documented as of this encounter Visit Diagnoses Not on filedocumented in this encounter Care Teams Diabetes Trainer Relationship Specialty Start Date End Date Jinny Camacho APRN [address] [place] [address] PCP - General Internal Medicine 10/04/19 documented as of this encounter
--- OUTSIDE RECORDS SUMMARY | 2023-09-15 08:24 | XMS_ITS | Encounter Summary ---
Author Organization [facility] Address [facility] [place] [address] Care Team Providers Care Product Applications Scientist Name Role Phone Jinny Camacho ZAINAB Primary Care Provider [phone] Encounter Details Date Type Department Care Team (Late st Contact Info) Description 11/12/2022 Telephone [place] [address] Gurdeep Duenas MD [facility] [place] [address] Social History Tobacco Use Types Packs/Day Years [...] days. Repeat labs in 3 months at [facility] - orders sent. Gurdeep Duenas MD Mat Manchief service observer Endocrinology Section [facility] documented in this encounter Plan of Treatment Not on file documented as of this encounter Visit Diagnoses Not on filedocumented in this encounter Care Teams Product Applications Scientist Relationship Specialty Start Date End Date Jinny Camacho, ZAINAB [address] [place] [address] PCP - General Internal Medicine 10/04/19 documented as of this encounter
--- OUTSIDE RECORDS SUMMARY | 2023-09-15 08:24 | XMS_ITS | Encounter Summary ---
Author Organization [facility] Address [address] [place] [address] Care Team Providers Care Wet End Operator Name Role Phone Unknown, Provider Primary Care Provider [phone] Jinny Camacho VP PRODUCT MANAGEMENT Primary Care Provider [phone] Encounter Details Date Type Department Care Team (Late st Contact Info) Description 11/04/2019 Lab Requisition [facility] Pathology & Laboratory Medicine - [address] [address] Outr Resulting Lab, Provider Social History Tobacco [...] Description 10/27/2023 12:50 EDT Office Visit [facility] Dermatology 3rd Floor [address] [address] Nikita Kumari PA-C [address] [place] [address], [address] [place] [phone] documented as of this encounter Procedures Procedure Name Priority Date/Time Associated Diagnosis Comments ZZCOVID-19 TEST [facility] PCR Today 11/04/2019 20:46 EDT COVID-19 TESTING Routine 11/04/2019 20:4 6 EDT documented in this encounter Results * COVID-19 TEST [facility] PCR (11/04/2019 20:46 EDT) Swab ENTIRE NASOPHARYNX / Unknown 11/04/2019 20:46 EDT 11/05/2019 9:20 EDT Provider Outr Resulting Lab MICROBIOLOGY - GENERAL ORDERABLES Performing Organization Address City/[facility]/ZIP Co de Phone Number [facility] [address] [place] [address] * COVID-19 TESTING (11/04/2019 20:46 EDT) COVID-19 rt-PCR Result Negative Negative 11/05/2019 12:43 EDT [facility] Comment: This test has not [...] history, and epidemiological information. Performed on the Funding Optionsher Fusion instrument Performing Lab [place] [facility] Lab 11/05/2019 12:43 EDT [facility] Swab 11/04/2019 20:4 6 EDT 11/05/2019 9:20 EDT Provider Outr Resulting Lab MICROBIOLOGY - GENERAL ORDERABLES Performing Organization Address City/[facility]/ZIP Co de Phone Number [facility] [address] [place] [address] documented in this encounter Visit Diagnoses Not on filedocumented in this encounter Care Teams Wet End Operator Relationship Specialty Start Date End Date Unknown, Provider, PCP - General 01/25/21 12/02/21 Jinny Camacho NP [address] [place] [address] PCP - General Family Medicine - Primary Care 12/03/21 documented as of this encounter
--- OUTSIDE RECORDS SUMMARY | 2023-09-15 08:24 | XMS_ITS | Encounter Summary ---
Author Organization [facility] Address [facility] [place] [address] Care Team Providers Care Pipe Liner Name Role Phone Jinny Camacho ZAINAB Primary Care Provider [phone] Encounter Details Date Type Department Care Team (Late st Contact Info) Description 11/04/2019 Orders Only [place] [address] Roman Pizano MD [facility] [place] [address] Hyperthyroidism Social History Tobacco Use Types Packs/Day [...] EDT) TSH 0.07(L) 0.27 - 4.20 mcIU/mL [facility] Blood specimen (specimen) 11/24/2019 4:04 PM EDT 11/24/2019 5:20 PM EDT Narrative Resulting Agency Comment Spec In Lab Roman Pizano MD CHEMISTRY ORDERABLES [facility] [place] [address] * T3 Total (11/24/2019 4:04 PM EDT) T3, Total 101 75 - 170 ng/dL [facility] Blood specimen (specimen) 11/24/2019 4:04 PM EDT 11/24/2019 5:20 PM EDT Narrative Resulting Agency Comment Spec In Lab Roman Pizano MD CHEMISTRY ORDERABLES Performing Organization Address City/[facility]/ZIP Co de Phone Number [facility] [place] [address] * (ABNORMAL) T4, free (11/24/2019 4:04 PM EDT) Free T4 0.75(L) 0.93 - 1.70 ng/dL [facility] Blood specimen (specimen) 11/24/2019 4:04 PM EDT 11/24/2019 5:20 PM EDT Narrative Resulting Agency Comment Spec In Lab Roman Pizano MD CHEMISTRY ORDERABLES Performing Organization Address City/[facility]/ZIP Co de Phone Number [facility] [place] [address] documented in this encounter Visit Diagnoses Diagnosis Hyperthyroidism Thyrotoxicosis without mention of goiter or other cause, without mention of thyrotoxic crisis or storm documented in this encounter Care Teams Pipe Liner Relationship Specialty Start Date End Date Jinny Camacho APRN [address] [facility] [place] [place] [address] PCP - General Internal Medicine 10/04/19 documented as of this encounter
--- OUTSIDE RECORDS SUMMARY | 2023-09-15 08:24 | XMS_ITS | Encounter Summary ---
Author Organization [facility] Address [facility] [place] [address] Care Team Providers Care Cis Coordinator Name Role Phone Jinny Camacho APRN Primary Care Provider [phone] Encounter Details Date Type Department Care Team (Late st Contact Info) Description 10/12/2019 Orders [place] [address] Roman Pizano MD [facility] [place] [address] Social History Tobacco Use Types Packs/Day Years [...] on filedocumented in this encounter Care Teams Cis Coordinator Relationship Specialty Start Date End Date Jinny Camacho APRN [address] [place] [address] PCP - General Internal Medicine 10/04/19 documented as of this encounter
--- OUTSIDE RECORDS SUMMARY | 2023-09-15 08:24 | XMS_ITS | Encounter Summary ---
Author Organization [facility] Address [facility] [place] [address] Care Team Providers Care Strategy Associate Name Role Phone Jinny Camacho APRN Primary Care Provider [phone] Reason for Visit * Consultation (Routine) - Closed Specialty Diagnoses / Procedures Referred By Zoya t Referred To Contact Endocrinology Diagnoses Thyrotoxicosis, unspecified without thyrotoxic crisis or storm WEIGHT LOSS, ANXIETY, TSH <0.01, FT4 2.71 Jinny Camacho, ZAINAB [address] [place] [address] 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 Is not had 2 [...] T3, Total 272(H) 75 - 170 ng/dL [facility] Blood specimen (specimen) 10/06/2019 3:25 PM EDT 10/06/2019 3:39 PM EDT Narrative Resulting Agency Comment Spec In Lab Roman Pizano MD CHEMISTRY ORDERABLES Performing Organization Address [facility] Co de Phone Number [facility] [place] [address] * (ABNORMAL) T4, free (10/06/2019 3:25 PM EDT) Free T4 2.80(H) 0.93 - 1.70 ng/dL [facility] Blood specimen (specimen) 10/06/2019 3:25 PM EDT 10/06/2019 3:39 PM EDT Narrative Resulting Agency Comment Spec In Lab Roman Pizano MD CHEMISTRY ORDERABLES Performing Organization Address [facility]/ZIP Co de Phone Number [facility] [place] [address] * (ABNORMAL) Thyroid Stimulating Immunoglobulins (10/06/2019 3:25 PM EDT) TSI 7.56(H) <=0.55 IU/L [facility] Blood specimen (specimen) 10/06/2019 3:25 PM EDT 10/07/2019 7:46 AM EDT Narrative Resulting Agency Comment Spec In Lab Roman Pizano MD IMMUNOLOGY ORDERABLE S [facility] [place] [address] documented in this encounter Visit Diagnoses Diagnosis Hyperthyroidism Thyrotoxicosis without mention of goiter or other cause, without mention of thyrotoxic crisis or storm documented in this encounter Care Teams Strategy Associate Relationship Specialty Start Date End Date Jinny Camacho, DISTRICT COURT BAILIFF [address] [place] [address] PCP - General Internal Medicine 10/04/19 documented as of this encounter
--- OUTSIDE RECORDS SUMMARY | 2023-09-15 08:24 | XMS_ITS | Encounter Summary ---
Author Organization [facility] [place] [address] Care Team Providers Care Bookstore Manager Name Role Phone Jinny Camacho APRN Primary Care Provider [phone] Encounter Details Date Type Department Care Team [...] on filedocumented in this encounter Care Teams Bookstore Manager Relationship Specialty Start Date End Date Jinny Camacho APRN [address] [place] [address] PCP - General Internal Medicine 10/04/19 documented as of this encounter
--- OUTSIDE RECORDS SUMMARY | 2023-09-15 08:24 | XMS_ITS | Clinical Summary ---
Author Organization [facility] [place] [address] Care Team Providers Care Field Counsel Name Role Phone Jinny Camacho ZAINAB Primary Care Provider [phone] Allergies Active Allergy Reactions Criticality Noted Date [...] (03/10/2022): Added automatically from request for surgery [id number] Hyperthyroidism 11/24/2019 Social History Tobacco Use Types [...] - Influenza standard series) 10/25/2023 Care Teams Field Counsel Relationship Specialty Start Date End Date Jinny Camacho APRN [address] [place], [place] [id number] PCP - General Internal Medicine 10/04/19
--- OUTSIDE RECORDS SUMMARY | 2023-09-15 08:24 | XMS_ITS | Encounter Summary ---
Author Organization [facility] Address [facility] [address] Care Team Providers Care Boat Builder And Repairer Name Role Phone Jinny Camacho APRN Primary Care Provider [phone] Encounter Details Date Type Department Care Team (Late st Contact Info) Description 11/12/2022 Orders [place] [address] Gurdeep Duenas MD [facility] [place] [address] Graves disease Social History Tobacco Use Types [...] storm documented in this encounter Care Teams Boat Builder And Repairer Relationship Specialty Start Date End Date Jinny Camacho APRN [address] [place] [address] PCP - General Internal Medicine 10/04/19 documented as of this encounter
--- OUTSIDE RECORDS SUMMARY | 2023-09-15 08:24 | XMS_ITS | Encounter Summary ---
Author Organization [facility] [place] [address] Care Team Providers Care Monotype Setter Name Role Phone Jinny Camacho APRN Primary Care Provider [phone] Encounter Details Date Type Department Care Team (Late st Contact Info) Description 05/23/2020 [place] [address] Rachel Vallecillo Social History Tobacco Use Types [...] on filedocumented in this encounter Care Teams Monotype Setter Relationship Specialty Start Date End Date Jinny Camacho APRN [address] [place] [address] PCP - General Internal Medicine 10/04/19 documented as of this encounter
--- OUTSIDE RECORDS SUMMARY | 2023-09-15 08:24 | XMS_ITS | Encounter Summary ---
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 Thyrotoxicosis without thyroid storm, unspecified thyrotoxicosis type Jinny Camacho APRN [address] [place] [address] Stevo Saucedo MD [facility] [place] [address] Referral ID Status Reason Start Date Expiration Date Visits Requested Visits Authorized [id number] Authorized Consult, Test & Treat PCP Updated and/or Approved 01/28/2023 01/28/2024 6 6 Encounter Details Date Type Department Care Team (Latest Contact Info) Description 01/28/2023 Transcribe Orders eDH Incoming Referrals [phone] Jinny Camacho APRN [address] [place], [place] [address] Thyrotoxicosis without thyroid storm, unspecified thyrotoxicosis type [...] storm documented in this encounter Care Teams Associate Director Finance Relationship Specialty Start Date End Date Jinny Camacho, ADAPTED PHYSICAL EDUCATION AIDE [address] [place] [address] PCP - General Internal Medicine 10/04/19 documented as of this encounter
--- OUTSIDE RECORDS SUMMARY | 2023-09-15 08:24 | XMS_ITS | Encounter Summary ---
Author Organization [facility] [place] [address] Care Team Providers Care Business Leader Name Role Phone Jinny Camacho APRN Primary Care Provider [phone] Encounter Details Date Type Department Care Team (Late st Contact Info) Description 08/13/2022 Telephone [place] [address] Petros Schmidt, [facility] [place] [address] Social History Tobacco Use Types Packs/Day Years [...] on filedocumented in this encounter Care Teams Business Leader Relationship Specialty Start Date End Date Jinny Camacho APRN [address] [place] [place] [address] PCP - General Internal Medicine 10/04/19 documented as of this encounter
--- OUTSIDE RECORDS SUMMARY | 2023-09-15 08:24 | XMS_ITS | Encounter Summary ---
Author Organization [facility] [place] [address] Care Team Providers Care Electronic Pagination System Operator Name Role Phone Jinny Camacho APRN Primary Care Provider [phone] Encounter Details Date Type Department Care Team [...] on filedocumented in this encounter Care Teams Electronic Pagination System Operator Relationship Specialty Start Date End Date Jinny Camacho APRN [address] [place] [address] PCP - General Internal Medicine 10/04/19 documented as of this encounter
--- OUTSIDE RECORDS SUMMARY | 2023-09-15 08:24 | XMS_ITS | Encounter Summary ---
Author Organization [facility] Address [address] [place] [address] Care Team Providers Care Core Feeder Name Role Phone JaniceJinny cox UNITIZER Primary Care Provider [phone] Reason for Visit * Auth/Cert Specialty Diagnoses / Procedures [facility] Referred To Contact Diagnoses Basal cell carcinoma (BCC) of right upper eyelid Basal cell carcinoma (BCC) of right upper eyelid [C44.1121] Procedures ND ADJ TISS XFER LID,NOS,EAR <10 SQCM ND REPAIR TEAR DUCTS Repair of RIGHT eyelid/Medial Carthus MOHS defect with tissue rearrangement. Possible stent placement for Repair of lacrimal drainage system PLASTIC REPAIR, CANALICULI Referral ID Status Reason Start Date Expiration Date Visits Re quested Visits Authorized [id number] 12/10/2021 02/22/2022 1 1 Encounter Details Date Type Department Care Team (Late st Contact Info) Description 12/10/2021 11:06 EDT - 12/10/2021 16:00 EDT Hospital Encounter [facility] Operating Room [address] [place] [address] Whitley Elias MD [address] [facility], [address] [place] [address] Discharge Disposition: Home or Self [...] Elias (if unsure of appointment time, call [phone]) - If you have decreasing vision, uncontrollable pain, or significant bleeding call [phone] [address] Elias documented in this encounter Medications [...] 20 mEq by mouth 2 times daily. mcfhgtuy-uvakzysdu-fpnv methasone (MAXITROL) ophthalmic ointment Apply to all wounds 3 times daily for 10 days 3.5 g 1 12/10/2021 05/16/2022 documented as of this encounter Ordered Prescriptions Prescription Sig Dispensed Refills Start Date End Da te rtypjvyj-ibveuuiua-axkqqwb hasone (MAXITROL) ophthalmic ointment Apply to all wounds 3 times daily for 10 days 3.5 g 1 12/10/2021 05/16/2022 decibmaq-lbyrkdros-hlgebhk hasone (MAXITROL) ophthalmic ointment Apply to all wounds 3 times daily for 10 days 3.5 g 1 12/10/2021 12/10/2021 documented in this encounter Discharge Disposition Disposition Code Departure Means Destination Home or Self [facility] documented in this encounter H&P Notes * [...] Elias MD 12/10/2021 11:49 Source Note - PHARMACY DISTRICT MANAGER, PIPER 2 - 12/09/2021 16:14 EDT documented [...] diagnosis: same ?? Surgeon: Whitley Elias MD Early Childhood Director: Naz Mcneill ?? Anesthesia: General anesthesia with [...] - 12/10/2021 1600 EDT Date: 12/10/2021 Location: [facility] OR Name: Caitlin Marte, : 1940, Diagnosis [...] thickness (Active) [REMOVED] Non-Surgical Airway (Removed) Staff: Milled Lumber Grader: Obdulia Zhu RN; Arun Sherman RN Scrub [...] - 12/10/2021 1439 EDT Date: 12/10/2021 Location: [facility] OR Name: Caitlin Marte, : 1940, Diagnosis [...] 12/10/21 Incision Nose Full thickness (Active) Staff: Milled Lumber Grader: Obdulia Zhu RN; Arun Sherman RN Scrub [...] 10/27/2023 12:50 EDT Office Visit [facility] Dermatology 3rd Floor [facility] [address], [place] [address] Nikita Kumari PA-C [address] [facility], [address] [place] [address] documented as of this encounter [...] EDT) 12/12/2021 11:4 3 EDT Scan 2 Replenishment Buyer PROCEDURE/MINOR CHIQUITA GICAL ORDERABLES documented in this [...] Discontinue Reason Start Date End Da te krgkblnp-piqunmyga-lzn amethasone (MAXITROL) ophthalmic ointment Apply to all [...] (Given - Provid er: Whitley Elias MD) klriopgl-ulimdyxup-llunudgflcrao (MAXITROL) ophthalmic ointment (CANCELED) PRN, Starting on [...] naloxone (NARCAN) injection 0.2 mg 1 2021 ssnrjsmc-ghofzvgpy-alznaudyz sone (MAXITROL) ophthalmic ointment 1 12/10/2021 ondansetron (PF) (ZOFRAN) injection 4 mg 1 12/10/2021 oxymetazoline (AFRIN) 0.05 % nasal spray 1 12/10/2021 sodium chloride 0.9 % irrigation 1 12/11/19 Discharge Count Last Ordered Date First Orde red Date DISCHARGE PATIENT 1 12/10/2021 documented in this encounter Care Teams Core Feeder Relationship Specialty Start Date End Date Jinny Camcaho NP [address] [place] [address] PCP - General Family Medicine - Primary Care 12/03/21 documented as of this encounter
--- OUTSIDE RECORDS SUMMARY | 2023-09-15 08:24 | XMS_ITS | Encounter Summary ---
Author Organization [facility] Address [facility] [place] [address] Care Team Providers Care Pen And Pencil Repairer Name Role Phone Jinny Camacho Wagner LAMB Primary Care Provider [phone] Reason for Referral * Diagnostic Test (Routine) - Closed Specialty Diagnoses / Procedures Referred By Zoya juarez Referred To Contact Diagnoses Bilateral carotid artery stenosis Procedures Carotid Duplex, Bilateral Anjali Martino APRN [facility] [place] [address] [facility] V[facility] [address] [place] [address] Referral ID Status Reason Start Date Expiration Date V isits Requested Visits Authorized [id number] Closed Specialty Service Requested 01/24/2022 01/24/2023 1 1 Encounter Details Date Type Department Care Team (Late st Contact Info) Description 01/24/2022 Orders [place] [phone] Anjali Martino APRN [facility] [place] [address] Bilateral carotid artery stenosis Social History Tobacco [...] Text Report Department: Vascular Surgery Lab Patient: [id number] (CAITLIN MARTE) CPT: 11638 Referring Physician: ANJALI MARTINO, OCEANOGRAPHER PHYSICAL ?? Indications: ??Carotid stenosis at [facility], ? [...] infarction documented in this encounter Care Teams Pen And Pencil Repairer Relationship Specialty Start Date End Date Jinny Camacho APRN [address] [place] [address] PCP - General Internal Medicine 10/04/19 documented as of this encounter
--- OUTSIDE RECORDS SUMMARY | 2023-09-15 08:24 | XMS_ITS | Encounter Summary ---
Author Organization [facility] Address [facility] [place] [address] Care Team Providers Care Upper Doubler Name Role Phone Jinny Camacho ZAINAB Primary Care Provider [phone] Reason for Visit * Reason Onset Date Comments Shortness of Breath 11/04/2019 Encounter Details Date Type Department Care Team (Late st Contact Info) Description 11/04/2019 Tele[place] [phone] Jeremías Shirley, RN Shortness of Breath Social [...] repeat thyroid test done this Thursday at [facility]. She said that she had had [...] on filedocumented in this encounter Care Teams Upper Doubler Relationship Specialty Start Date End Date Jinny Camacho APRN [address] [facility] [place] [address] PCP - General Internal Medicine 10/04/19 documented as of this encounter
--- OUTSIDE RECORDS SUMMARY | 2023-09-15 08:24 | XMS_ITS | Encounter Summary ---
[place] [address] Care Team Providers Care Picture Hanger Name Role Phone Jinny Camacho APRN Primary Care Provider [phone] Reason for Visit * Reason Onset Date Comments Medication Refill 04/22/2021 Encounter Details Date Type Department Care Team (Late st Contact Info) Description 04/22/2021 Refill [place] [phone] Jeremías Shirley, RN Social History Tobacco Use [...] on filedocumented in this encounter Care Teams Picture Hanger Relationship Specialty Start Date End Date Jinny Camacho APRN [address] [place] [address] PCP - General Internal Medicine 10/04/19 documented as of this encounter
--- OUTSIDE RECORDS SUMMARY | 2023-09-15 08:24 | XMS_ITS | Encounter Summary ---
Author Organization [facility] Address [address] [place] [address] Care Team Providers Care Gas Furnace Installer Name Role Phone Unknown, Provider Primary Care Provider Reason for Visit * Reason Comments Eye Problem * Consult, Test and Treat (Routine) - Receiving Office to Obtain Authorization Specialty Diagnoses / Procedures Referred By Zoya juarez Referred To Contact Ophthalmology Diagnoses Other disorders of lacrimal system Linwood Becker MD [address] [place] [address] Whitley Elias MD [address] [place] [phone] Referral ID Status Reason Start Date Expiration Date Visits Requested Visits Authorized [id number] Receiving Office to Obtain Authorization 1 1 Encounter Details Date Type Department Care Team (Late st Contact Info) Description 06/28/2021 10:15 EDT Office Visit [facility] Ophthalmology - [address] [id number] Whitley Elias MD [address] [place] [address] Social History Tobacco Use Types Packs/Day [...] Right eye medial canthal nodular lesion per [facility]. Bump nasally inner corner right [...] Right eye medial canthal nodular lesion per [facility]. Bump nasally inner corner right [...] Thyroid problems Hematologic: NL Immunologic: Drug Allergy Fuel Distribution System Operator: Exposures: Other: Attestation: Allergies include: Patient [...] my own HPI and have reviewed the [facility]'s ROS as well. I personally completed [...] Info) Description 10/27/2023 12:50 EDT Office Visit [facility] Dermatology 3rd Floor [facility] [address] [place] [address] Nikita Kumari PA-C [address] [facility], [address] [place] [phone] documented as of this encounter Visit Diagnoses [...] reactive Round and rusty ctive Care Teams Gas Furnace Installer Relationship Specialty Start Date End Date Unknown, Provider, PCP - General 01/25/21 12/02/21 documented as of this encounter
--- OUTSIDE RECORDS SUMMARY | 2023-09-15 08:24 | XMS_ITS | Encounter Summary ---
Author Organization [facility] [place] [address] Care Team Providers Care Sandstone Splitter Name Role Phone Jinny Camacho FABRIC WORKER SUPERVISOR Primary Care Provider [phone] Encounter Details Date Type Department Care Team (Late st Contact Info) Description 03/10/2022 1:00 PM EST Tech [place] [phone] Cassie Baldwin [place], [place] Bilateral carotid artery [...] Text Report Department: Vascular Surgery Lab Patient: [id number] (CAITLIN MARTE) CPT: [id number] Referring Physician: ANJALI MARTINO APRN ?? Indications: [...] VASCUBASE 03/10/2022 1:04 PM EST Anjali Martino FABRIC WORKER SUPERVISOR VASCULAR ORDERABLE S VASCUBASE documented in this encounter Visit Diagnoses Diagnosis Bilateral carotid artery stenosis Occlusion and stenosis of multiple and bilateral precerebral arteries without mention of cerebral infarction documented in this encounter Care Teams Sandstone Splitter Relationship Specialty Start Date End Date Jinny Camacho APRN [address] [place] [address] PCP - General Internal Medicine 10/04/19 documented as of this encounter
--- OUTSIDE RECORDS SUMMARY | 2023-09-15 08:24 | XMS_ITS | Encounter Summary ---
Author Organization [facility] [place] [address] Care Team Providers Care Human Intelligence Name Role Phone Jinny Camacho APRN Primary Care Provider [phone] Encounter Details Date Type Department Care Team (Late st Contact Info) Description 05/02/2021 Telephone [place] [phone] Rachel Vallecillo Social History Tobacco Use Types [...] on filedocumented in this encounter Care Teams Human Intelligence Relationship Specialty Start Date End Date Jinny Camacho APRN [address] [place] [address] PCP - General Internal Medicine 10/04/19 documented as of this encounter
--- OUTSIDE RECORDS SUMMARY | 2023-09-15 08:24 | XMS_ITS | Encounter Summary ---
Author Organization [facility] [place] [address] Care Team Providers Care Director Of Training Name Role Phone Jinny Camacho APRN Primary Care Provider [phone] Encounter Details Date Type Department Care Team (Late st Contact Info) Description 01/21/2022 Ancillary Procedure [place] [address] Jinny Camacho APRN [address] [place] [address] Social History Tobacco Use Types Packs/Day Years [...] Ultrasound Study (01/21/2022 12:00 AM EST) Narrative [facility] - 01/23/2022 7:25 PM EST This exam is auto-finalizing. It's purpose is for storage only. Jinny Camacho APRN IMG FILM LIBRARY ORD ERABLES [place], [place] documented in this encounter Visit Diagnoses Not on filedocumented in this encounter Care Teams Director Of Training Relationship Specialty Start Date End Date Jinny Camacho, ZAINAB [address] [place] [address] PCP - General Internal Medicine 10/04/19 documented as of this encounter
--- OUTSIDE RECORDS SUMMARY | 2023-09-15 08:24 | XMS_ITS | Encounter Summary ---
Author Organization [facility] Address [facility] [place] [address] Care Team Providers Care Society Editor Name Role Phone Jinny Camacho ZAINAB Primary Care Provider [phone] Encounter Details Date Type Department Care Team (Late st Contact Info) Description 11/24/2019 3:00 PM EDT Office [place] [address] Roman Pizano MD [facility] [place] [address] Hyperthyroidism Social History Tobacco Use Types Packs/Day [...] 20 of the 25-minute appointment was spent [id number] discussing the issues above. documented in this [...] EDT) TSH 0.07(L) 0.27 - 4.20 mcIU/mL [facility] Blood specimen (specimen) 11/24/2019 4:04 PM EDT 11/24/2019 5:20 PM EDT Narrative Resulting Agency Comment Spec In Lab Roman Pizano MD CHEMISTRY ORDERABLES [facility] [place] [address] * T3 Total (11/24/2019 4:04 PM EDT) T3, Total 101 75 - 170 ng/dL [facility] Blood specimen (specimen) 11/24/2019 4:04 PM EDT 11/24/2019 5:20 PM EDT Narrative Resulting Agency Comment Spec In Lab Roman Pizano MD CHEMISTRY ORDERABLES Performing Organization Address City/[facility]/ZIP Co de Phone Number [facility] [place] [address] * (ABNORMAL) T4, free (11/24/2019 4:04 PM EDT) Free T4 0.75(L) 0.93 - 1.70 ng/dL [facility] Blood specimen (specimen) 11/24/2019 4:04 PM EDT 11/24/2019 5:20 PM EDT Narrative Resulting Agency Comment Spec In Lab Roman Pizano MD CHEMISTRY ORDERABLES Performing Organization Address [facility] Co de Phone Number [facility] [place] [address] documented in this encounter Visit Diagnoses Diagnosis Hyperthyroidism Thyrotoxicosis without mention of goiter or other cause, without mention of thyrotoxic crisis or storm documented in this encounter Care Teams Society Editor Relationship Specialty Start Date End Date Jinny Camacho, CONSTRUCTION EQUIPMENT OVERHAULER [address] [place] [address] PCP - General Internal Medicine 10/04/19 documented as of this encounter
--- OUTSIDE RECORDS SUMMARY | 2023-09-15 08:24 | XMS_ITS | Encounter Summary ---
Author Organization [facility] Address [facility] [place] [address] Care Team Providers Care Event Attendant Name Role Phone Jinny Camacho APRN Primary Care Provider [phone] Encounter Details Date Type Department Care Team (Late st Contact Info) Description 11/27/2019 Orders [place] [address] Roman Pizano MD [facility] [address] Hyperthyroidism Social History Tobacco Use Types Packs/Day [...] storm documented in this encounter Care Teams Event Attendant Relationship Specialty Start Date End Date Jinny Camacho APRN [address] [place] [address] PCP - General Internal Medicine 10/04/19 documented as of this encounter
--- OUTSIDE RECORDS SUMMARY | 2023-09-15 08:24 | XMS_ITS | Encounter Summary ---
Author Organization [facility] [place] [address] Care Team Providers Care Securities Supervisor Name Role Phone Jinny Camacho APRN Primary Care Provider [phone] Encounter Details Date Type Department Care Team [...] on filedocumented in this encounter Care Teams Securities Supervisor Relationship Specialty Start Date End Date Jinny Camacho APRN [address] [place] [address] PCP - General Internal Medicine 10/04/19 documented as of this encounter
--- OUTSIDE RECORDS SUMMARY | 2023-09-15 08:24 | XMS_ITS | Encounter Summary ---
Author Organization [facility] Address [facility] [place] [address] Care Team Providers Care Buhr Dresser Name Role Phone Jinny Camacho APRN Primary Care Provider [phone] Encounter Details Date Type Department Care Team (Late st Contact Info) Description 05/31/2020 Orders [place] [address] Roman Pizano MD [facility] [place] [address] Hyperthyroidism Social History Tobacco Use Types Packs/Day [...] storm documented in this encounter Care Teams Buhr Dresser Relationship Specialty Start Date End Date Jinny Camacho APRN [address] [place] [address] PCP - General Internal Medicine 10/04/19 documented as of this encounter
--- OUTSIDE RECORDS SUMMARY | 2023-09-15 08:24 | XMS_ITS | Encounter Summary ---
Author Organization [facility] Address [facility] [place] [address] Care Team Providers Care Bartender Helper Name Role Phone Jinny Camacho ZAINAB Primary Care Provider [phone] Encounter Details Date Type Department Care Team (Late st Contact Info) Description 08/03/2020 8:00 AM EDT TH Visit (TeleHealth) [place] [address] Roman Pizano MD [facility] [place] [address] Hyperthyroidism Social History Tobacco Use Types Packs/Day [...] storm documented in this encounter Care Teams Bartender Helper Relationship Specialty Start Date End Date Jinny Camacho APRN [address] [place] [address] PCP - General Internal Medicine 10/04/19 documented as of this encounter
--- OUTSIDE RECORDS SUMMARY | 2023-09-15 08:24 | XMS_ITS | Encounter Summary ---
Author Organization [facility] Address [address] [place] [address] Care Team Providers Care General Medical Practitioner Name Role Phone Unknown, Provider Primary Care Provider Reason for Visit * Reason Comments Mohs Consult medial canthus- Dr. Elias biopsied on 09/24/2021 Encounter Details Date Type Department Care Team (Late st Contact Info) Description 10/03/2021 10:30 EDT Initial consult [facility] Dermatology 5th Floor [address] [address] Dodie Patricia MD [address] [facility], [address] [place] [address] Neoplasm of uncertain behavior of [...] take place on the 5th floor of [place] [address] in the [facility]. If you would like, bring your own music (iPod with headphones, etc) for listening during the procedure. For additional information and a video on Mohs surgery please visit the following website from the [employer] please visit the following website from the [employer]: www.mohscollege.org Here's an additional video from the [employer]: www.asds.net/Uwof-Htfbpew-kqg-Skin-Cancer Consider Eucerin redness relief or Clinique Redness [...] discomfort. Tylenol, taken as directed by the oil rig driller, will help relieve pain. If Tylenol does [...] choose to look at your results in [employer] prior to our office contacting you, that is your right and choice. Our office policy is to have your provider or the provider???s assistant manager bilingual contact you with your results and any [...] not call the office or send a [place] [employer] message asking to discuss them. Providers are seeing patients during the day and cannot answer calls during clinic time or off hours/weekends. Unless it is an emergency, the international trade analyst provider will not review biopsy and/ or lab results. Thank you for entrusting us with your care. [facility]- Dermatology documented in this encounter Progress Notes * Alena Sims MD - 10/03/2021 1030 EDT Images from the original note were not included. MOHS EVALUATION NOTE Chief Complaint Patient presents with ??? Mohs Consult [facility]. Elias biopsied on 09/24/2021 Subjective: Caitlin [...] PATIENT INFORMATION: Caitlin Marte : MRN: [id number] SURGEON: Dodie Patricia MD MOLDED RUBBER GOODS CUTTER: Alena Sims MD The indication, risks, benefits [...] Sims MD, LACEY, MS PGY-3 Dermatology Pager [phone] 10/04/21 10:15 Attestation statement: I performed or was present during the nick or critical portions of the visit and participated in the management of the patient. I agree with the findings and plan of care documented in the resident's/fellow's note. The resident performed the procedure under my direct supervision and with my assistance.. Dodie Patricia MD Dermatology & Mohs Surgery asphalt paving foreman, Dermatology Division [facility] 10/04/2021 10:13 documented in this encounter Miscellaneous Notes * Result Encounter Note - Dodie Patricia MD - 10/03/2021 1030 EDT Sowmya, [...] Info) Description 10/27/2023 12:50 EDT Office Visit [facility] Dermatology 3rd Floor [address] [address] Nikita Kumari, DANDRE [address] [place] [address], [address] [place] [address] documented as of this encounter [...] explore management options, if applicable. 10/05/2021 10:33 [facility] Final Diagnosis A. SKIN OF NASAL SIDEWALL, RIGHT, SHAVE BIOPSY: - Melanocytic nevus, predominantly intradermal type. See comment. 10/05/2021 10:33 [facility] Diagnosis Comment Multiple levels of the biopsy have been reviewed. Features of intradermal nevus are best appreciated on deeper sections. Basal cell carcinoma is not identified. 10/05/2021 10:33 [facility] Attestation By the signature below, the attending physician certifies that they have 1) personally conducted a gross and/or microscopic examination of the described specimen(s), and/or personally interpreted the results of laboratory testing of the described specimen(s), and 2) personally rendered or confirmed the above diagnosis. 10/05/2021 10:33 [facility] at 1033 Clinical History Right nasal sidewall, favor BCC; clinical diagnosis code: D48.5 10/05/2021 10:33 [facility] Gross Description A. Received in formalin labelled with proper patient identification (initials W, P) and right nasal sidewall is a 0.5 x 0.3 x 0.1 cm ovoid shave pearly white skin. The margin is inked. The specimen is submitted intact in A1. DAVID SALVADOR(ASCP) 10/03/2021 15:53 10/05/2021 10:33 [facility] Performing Lab [facility] 10/05/2021 10:33 [facility] Scanned Images 10/05/2021 10:33 [facility] Tissue TISSUE SPECIMEN FROM SKIN / Unknown Collection, Other / Unknown 10/03/2021 11:16 EDT 10/03/2021 13:26 EDT Dodie Patricia MD PATHOLOGY OLU RABAGO [facility] [address] [place] [address] documented in this encounter Visit Diagnoses Diagnosis Neoplasm of uncertain behavior of skin- Primary Basal cell carcinoma (BCC) of medial canthus of right eye Basal cell carcinoma (BCC) of right medial cheek documented in this encounter Care Teams General Medical Practitioner Relationship Specialty Start Date End Date Unknown, Provider, PCP - General 01/25/21 12/02/21 documented as of this encounter
--- OUTSIDE RECORDS SUMMARY | 2023-09-15 08:24 | XMS_ITS | Encounter Summary ---
Author Organization [facility] [place] [address] Care Team Providers Care Filleter Name Role Phone Jinny Camacho APRN Primary Care Provider [phone] Encounter Details Date Type Department Care Team (Late st Contact Info) Description 10/07/2019 Telephone [place] [phone] Mariano Hamm Social History Tobacco Use Types [...] on filedocumented in this encounter Care Teams Filleter Relationship Specialty Start Date End Date Jinny Camacho APRN [address] [place] [address] PCP - General Internal Medicine 10/04/19 documented as of this encounter
--- OUTSIDE RECORDS SUMMARY | 2023-09-15 08:24 | XMS_ITS | Encounter Summary ---
Author Organization [facility] Address [facility] [place] [address] Care Team Providers Care Manager Protein Name Role Phone Jinny Camacho ZAINAB Primary Care Provider [phone] Encounter Details Date Type Department Care Team (Late st Contact Info) Description 09/12/2022 Telephone [place] [address] Gurdeep Duenas MD [facility] [place] [address] Social History Tobacco Use Types Packs/Day Years [...] explain worsening eye disease. Gurdeep Duenas MD Agent Licensing Clerkaffiliate marketing specialist Endocrinology Section [facility] documented in this encounter Plan of Treatment Not on file documented as of this encounter Visit Diagnoses Not on filedocumented in this encounter Care Teams Manager Protein Relationship Specialty Start Date End Date Jinny Camacho APRN [address] [place] [address] PCP - General Internal Medicine 10/04/19 documented as of this encounter
--- OUTSIDE RECORDS SUMMARY | 2023-09-15 08:24 | XMS_ITS | Encounter Summary ---
Author Organization [facility] Address [facility] [place] [address] Care Team Providers Care Fire Engine Pump Operator Name Role Phone Jinny Camacho ZAINAB Primary Care Provider [phone] Encounter Details Date Type Department Care Team (Late st Contact Info) Description 05/31/2020 9:40 AM EDT TH Visit (TeleHealth) [place] [address] Roman Pizano MD [facility] [place] [address] Hyperthyroidism Social History Tobacco Use Types Packs/Day [...] check some repeat thyroid function tests at [facility]. I told her I would get back [...] to get some blood test done in [place] took 30 minutes. documented in this encounter Plan of Treatment Not on file documented as of this encounter Visit Diagnoses Diagnosis Hyperthyroidism Thyrotoxicosis without mention of goiter or other cause, without mention of thyrotoxic crisis or storm documented in this encounter Care Teams Fire Engine Pump Operator Relationship Specialty Start Date End Date Jinny Camacho APRN [address] [place] [address] PCP - General Internal Medicine 10/04/19 documented as of this encounter
--- OUTSIDE RECORDS SUMMARY | 2023-09-15 08:24 | XMS_ITS | Encounter Summary ---
Author Organization [facility] Address [address] [place] [address] Care Team Providers Care Automotive Upholsterer Name Role Phone Unknown, Provider Primary Care Provider Encounter Details Date Type Department Care Team (Late st Contact Info) Description 12/02/2021 Orders Only [facility] Ophthalmology - [address] [address] Whitley Elias MD [address] [place] [address] Basal cell carcinoma (BCC) of right [...] 10/27/2023 12:50 EDT Office Visit [facility] Dermatology 3rd Floor [address] [id number] Nikita Kumari PA-C [address] [place] [address] documented as of this encounter Visit Diagnoses Diagnosis Basal cell carcinoma (BCC) of right upper eyelid- Primary documented in this encounter Orders Case Request Count Last Ordered Date First Orde red Date CASE REQUEST OPERATING ROOM 1 12/02/2021 documented in this encounter Care Teams Automotive Upholsterer Relationship Specialty Start Date End Date Unknown, Provider, PCP - General 01/25/21 12/02/21 documented as of this encounter
--- OUTSIDE RECORDS SUMMARY | 2023-09-15 08:24 | XMS_ITS | Encounter Summary ---
Author Organization [facility] Address [address] [place] [address] Care Team Providers Care Developer Relations Manager Name Role Phone Unknown, Provider Primary Care Provider [phone] Jinny Camacho HARDENING MACHINE OPERATOR Primary Care Provider [phone] Encounter Details Date Type Department Care Team (Late st Contact Info) Description 06/06/2020 Lab Requisition [facility] Pathology & Laboratory Medicine - [address] [address] Outr Resulting Lab, Provider Social History Tobacco [...] [facility] Dermatology 3rd Floor [address] [address] Nikita Kumari PA-C 111 [facility], [facility] [address] [place] [phone] documented as of this encounter Procedures Procedure Name Priority Date/Time Associated Diagnosis Comments T3, TOTAL Routine 06/06/2020 10:27 EDT documented in this encounter Results * T3, TOTAL (06/06/2020 10:27 EDT) T3, Total 131 97 - 169 ng/dL 06/06/2020 17:09 EDT [facility] Blood VENOUS BLOOD / Unknown 06/06/2020 10:27 EDT 06/06/2020 16:22 EDT Provider Outr Resulting Lab CHEMISTRY & BLOOD GAS ORDERABLES [facility] [address] [place] [address] documented in this encounter Visit Diagnoses Not on filedocumented in this encounter Care Teams Developer Relations Manager Relationship Specialty Start Date End Date Unknown, Provider, PCP - General 01/25/21 12/02/21 Jinny Camacho NP [address] [place] [address] PCP - General Family Medicine - Primary Care 12/03/21 documented as of this encounter
--- OUTSIDE RECORDS SUMMARY | 2023-09-15 08:24 | XMS_ITS | Encounter Summary ---
Author Organization [facility] [place] [address] Care Team Providers Care Director Specialty Name Role Phone Jinny Camacho APRN Primary Care Provider [phone] Reason for Referral * Consultation (Routine) - Closed Specialty Diagnoses / Procedures Referred By Zoya t Referred To Contact Vascular Surgery Diagnoses Occlusion and stenosis of unspecified carotid artery Abnormal findings on diagnostic imaging of body structures ROUTINE, NEW PATIENT, B CAR DUP - carotid stenosis OSH duplex carotid bruit, HAZARDOUS SUBSTANCES ENGINEER / PA / Jinny Castle APRN [address] [place] [address] [facility] Vascular Surg [address] [place] [address] Referral ID Status Reason Start Date Expiration Date V isits Requested Visits Authorized [id number] Closed Consult, Test & Treat PCP Updated and/or Approved 01/24/2022 01/24/2023 6 6 Encounter Details Date Type Department Care Team (Latest Contact Info) Description 01/24/2022 Transcribe Orders eDH Incoming Referrals [phone] Jinny Camacho APRN [address] [place], [place] [id number] Occlusion and stenosis of unspecified carotid artery; [...] structures documented in this encounter Care Teams Director Specialty Relationship Specialty Start Date End Date Jinny Camacho, FUR DRY CLEANER HAND [address] [place] [address] PCP - General Internal Medicine 10/04/19 documented as of this encounter
--- OUTSIDE RECORDS SUMMARY | 2023-09-15 08:24 | XMS_ITS | Encounter Summary ---
Author Organization [facility] Address [facility] [place] [address] Care Team Providers Care Fuel System Maintenance Worker Name Role Phone Jinny Camacho APRN Primary Care Provider [phone] Encounter Details Date Type Department Care Team (Late st Contact Info) Description 06/25/2020 Orders [place] [address] Roman Pizano MD [facility] [address] Hyperthyroidism Social History Tobacco Use Types Packs/Day [...] storm documented in this encounter Care Teams Fuel System Maintenance Worker Relationship Specialty Start Date End Date Jinny Camacho APRN [address] [place] [address] PCP - General Internal Medicine 10/04/19 documented as of this encounter
--- OUTSIDE RECORDS SUMMARY | 2023-09-15 08:24 | XMS_ITS | Encounter Summary ---
Author Organization [facility] Address [facility] [place] [address] Care Team Providers Care Watch Repairer Name Role Phone Jinny Camacho APRN Primary Care Provider [phone] Reason for Visit * Consultation (Routine) - Closed Specialty Diagnoses / Procedures Referred By Contcherrie t Referred To Contact Vascular Surgery Diagnoses Occlusion and stenosis of unspecified carotid artery Abnormal findings on diagnostic imaging of body structures ROUTINE, NEW PATIENT, B CAR DUP - carotid stenosis OSH duplex carotid bruit, DOCK CLERK / PA / Jinny Castle, CUSTOMER SERVICE SPECIALIST [address] [place] [address] [facility] Vascular Surg [address] [place] [address] Referral ID Status Reason Start Date Expiration Date V isits Requested Visits Authorized [id number] Closed Consult, Test & Treat PCP Updated and/or Approved 01/24/2022 01/24/2023 6 6 Encounter Details Date Type Department Care Team (Late st Contact Info) Description 03/10/2022 2:00 PM EST Office Visit [place] [address] Ruma Rose MD [facility] [place] [address] Carotid stenosis, asymptomatic, bilateral Social [...] that prompted abilateral carotid artery duplex in [facility]. She is referred to [facility] for further evaluation. She has had no [...] Text Report Department: Vascular Surgery Lab Patient: [id number] (CAITLIN MARTE) CPT: 64065 Referring Physician: ANJALI CHING APRN Indications: Carotid [...] Report Impression: Carotid duplex performed here at [facility] confirms the outside hospital findings of a [...] bilateral documented in this encounter Care Teams Watch Repairer Relationship Specialty Start Date End Date Jinny Camacho APRN [address] [place] [address] PCP - General Internal Medicine 10/04/19 documented as of this encounter
--- OUTSIDE RECORDS SUMMARY | 2023-09-15 08:24 | XMS_ITS | Encounter Summary ---
Author Organization [facility] Address [facility] [place] [address] Care Team Providers Care Clinical Biostatistician Name Role Phone Jinny Camacho INVESTIGATOR CASH SHORTAGE Primary Care Provider [phone] Encounter Details Date Type Department Care Team (Late st Contact Info) Description 05/07/2021 10:30 AM EDT TH Visit (TeleHealth) [place] [address] Katie Acevedo INVESTIGATOR CASH SHORTAGE [facility] [place] [address] Hyperthyroidism Social History Tobacco Use Types Packs/Day [...] followed by Dr. Pizano until his recent snf. Methimazole reduced to 10mg daily in July 2020 at her last visit. She has continued to take 10mg methimazole a day. Tookher last dose this morning, has not yet updated her labs. New jeanette Lisa in [place] Plan from previous visit note:Harinder 08/03/20 In [...] lab request to her local hospital in [facility]. ?? When I get the results [...] and available tests, [facility], counseling the patient on medications, and in [...] storm documented in this encounter Care Teams Clinical Biostatistician Relationship Specialty Start Date End Date Jinny Camacho APRN [address] [place] [address] PCP - General Internal Medicine 10/04/19 documented as of this encounter
--- OUTSIDE RECORDS SUMMARY | 2023-09-15 08:24 | XMS_ITS | Encounter Summary ---
Author Organization [facility] Address [facility] [place] [address] Care Team Providers Care Community Health Nursing Director Name Role Phone Jinny Camacho ZAINAB Primary Care Provider [phone] Encounter Details Date Type Department Care Team (Late st Contact Info) Description 11/11/2022 11:30 AM EDT Office [place] [address] Gurdeep Duenas MD [facility] [address] Graves disease; Graves' orbitopathy Social History Tobacco [...] Duenas MD - 11/11/2022 11:30 AM EDT [facility] Follow up Patient Chief [...] in 3 months, to be done [facility], and have her follow up with me [...] orders and on documentation. Gurdeep Duenas MD Special Education Associateerp specialist Endocrinology Section [facility] documented in this encounter Plan of [...] T3, Total 174 80 - 200 ng/dL [facility] Blood 11/11/2022 12:2 2 PM EDT 11/11/2022 12:26 PM EDT Narrative Resulting Agency Comment Spec In Lab Gurdeep Duenas MD CHEMISTRY ORDERABLES Performing Organization Address City/[facility]/ZIP Co de Phone Number [facility] [place] [address] * (ABNORMAL) T4, free (11/11/2022 12:22 PM EDT) Free T4 0.82(L) 0.93 - 1.70 ng/dL [facility] Comment: Reference Interval (ng/dL): Females: ??First Trimester: 0.97-1.68 ??Second Trimester: 0.77-1.51 ??Third Trimester: 0.77-1.49 Blood 11/11/2022 12:2 2 PM EDT 11/11/2022 12:26 PM EDT Narrative Resulting Agency Comment Spec In Lab Gurdeep Duenas MD CHEMISTRY ORDERABLES Performing Organization Address [facility] Co de Phone Number [facility] [place] [address] * (ABNORMAL) TSH (11/11/2022 12:22 PM EDT) TSH 0.22(L) 0.27 - 4.20 mcIU/mL [facility] Comment: Reference Interval (mcIU/mL): Females: ??First Trimester: 0.23-3.88 ??Second Trimester: 0.22-3.90 ??Third Trimester: 0.44-4.66 Blood 11/11/2022 12:2 2 PM EDT 11/11/2022 12:26 PM EDT Narrative Resulting Agency Comment Spec In Lab Gurdeep Duenas MD CHEMISTRY ORDERABLES Performing Organization Address City/[facility]/ZIP Co de Phone Number [facility] [place] [address] documented in this encounter Visit Diagnoses Diagnosis Graves disease Toxic diffuse goiter without 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
--- OUTSIDE RECORDS SUMMARY | 2023-09-15 08:24 | XMS_ITS | Encounter Summary ---
[place] [address] Care Team Providers Care Dog Hair Clipper Name Role Phone Jinny Camacho APRN Primary Care Provider [phone] Reason for Visit * Reason Onset Date Comments Medication Refill 04/26/2021 Encounter Details Date Type Department Care Team (Late st Contact Info) Description 04/26/2021 Refill [place] [phone] [facility] I Social History Tobacco Use Types [...] on filedocumented in this encounter Care Teams Dog Hair Clipper Relationship Specialty Start Date End Date Jinny Camacho APRN [address] [place] [address] PCP - General Internal Medicine 10/04/19 documented as of this encounter
--- OUTSIDE RECORDS SUMMARY | 2023-09-15 08:24 | XMS_ITS | Encounter Summary ---
Author Organization [facility] Address [address] [place] [address] Care Team Providers Care Outside Sales Associate Name Role Phone Unknown, Provider Primary Care Provider [phone] Jinny Camacho [facility] PHYSICIAN Primary Care Provider [phone] Encounter Details Date Type Department Care Team (Late st Contact Info) Description 11/07/2019 Lab Requisition [facility] Pathology & Laboratory Medicine - [address] [address] Outr Resulting Lab, Provider Social History Tobacco [...] Info) Description 10/27/2023 12:50 EDT Office Visit [facility] Dermatology 3rd Floor [address] [address] Nikita Kumari PA-C [address] [place] [address], [address] [place] [phone] documented as of this encounter Procedures Procedure Name Priority Date/Time Associated Diagnosis Comments T3, TOTAL Routine 11/07/2019 7:10 EDT documented in this encounter Results * T3, TOTAL (11/07/2019 7:10 EDT) T3, Total 130 97 - 169 ng/dL 11/07/2019 22:12 EDT [facility] Blood VENOUS BLOOD / Unknown 11/07/2019 7:10 EDT 11/07/2019 21:30 EDT Provider Outr Resulting Lab CHEMISTRY & BLOOD GAS ORDERABLES [facility] [address] [place] [address] documented in this encounter Visit Diagnoses Not on filedocumented in this encounter Care Teams Outside Sales Associate Relationship Specialty Start Date End Date Unknown, Provider, PCP - General 01/25/21 12/02/21 Jinny Camacho, [facility] PHYSICIAN [address] [place] [address] PCP - General Family Medicine - Primary Care 12/03/21 documented as of this encounter
--- OUTSIDE RECORDS SUMMARY | 2023-09-15 08:24 | XMS_ITS | Encounter Summary ---
Author Organization [facility] Address [facility] [place] [address] Care Team Providers Care Manufacturing Supervisor 2Nd Shift Name Role Phone Jinny Camacho ZAINAB Primary Care Provider [phone] Encounter Details Date Type Department Care Team (Late st Contact Info) Description 10/06/2019 Orders [place] [address] Roman Pizano MD [facility] [place] [address] Hyperthyroidism Social History Tobacco Use Types Packs/Day [...] 3:25 PM EDT) TSI 7.56(H) <=0.55 IU/L [facility] Blood specimen (specimen) 10/06/2019 3:25 PM EDT 10/07/2019 7:46 AM EDT Narrative Resulting Agency Comment Spec In Lab Roman Pizano MD IMMUNOLOGY ORDERABLE S [facility] [place] [address] * (ABNORMAL) T3 Total (10/06/2019 3:25 PM EDT) T3, Total 272(H) 75 - 170 ng/dL [facility] Blood specimen (specimen) 10/06/2019 3:25 PM EDT 10/06/2019 3:39 PM EDT Narrative Resulting Agency Comment Spec In Lab Roman Pizano MD CHEMISTRY ORDERABLES Performing Organization Address City/[facility]/ZIP Co de Phone Number [facility] [place] [address] * (ABNORMAL) T4, free (10/06/2019 3:25 PM EDT) Free T4 2.80(H) 0.93 - 1.70 ng/dL [facility] Blood specimen (specimen) 10/06/2019 3:25 PM EDT 10/06/2019 3:39 PM EDT Narrative Resulting Agency Comment Spec In Lab Roman Pizano MD CHEMISTRY ORDERABLES Performing Organization Address City/[facility] Co de Phone Number [facility] [place] [address] documented in this encounter Visit Diagnoses Diagnosis Hyperthyroidism Thyrotoxicosis without mention of goiter or other cause, without mention of thyrotoxic crisis or storm documented in this encounter Care Teams Manufacturing Supervisor 2Nd Shift Relationship Specialty Start Date End Date Jinny Camacho APRN [address] [facility] [place] [address] PCP - General Internal Medicine 10/04/19 documented as of this encounter
--- OUTSIDE RECORDS SUMMARY | 2023-09-15 08:24 | XMS_ITS | Encounter Summary ---
Author Organization [facility] Address [address] [place] [address] Care Team Providers Care Auto Appraiser Name Role Phone Unknown, Provider Primary Care Provider Reason for Visit * Reason Comments Procedure Encounter Details Date Type Department Care Team (Late st Contact Info) Description 09/24/2021 14:45 EDT Office Visit [facility] Ophthalmology - [address] [address] Whitley Elias MD [address] [place] [address], [address] [place] [id number] Social History Tobacco Use Types Packs/Day Years [...] Info) Description 10/27/2023 12:50 EDT Office Visit [facility] Dermatology 3rd Floor [facility] [address] [place], [place] [id number] Nikita Kumari PA-C 111 [facility] [address] [place] [address] documented as of this encounter [...] - RIGHT EYE (09/27/2021 17:57 EDT) Narrative [facility] - 09/27/2021 17:57 EDT [...] ??Return precautions were discussed. Whitley Elias MD [facility] * SURGICAL PATHOLOGY (09/24/2021 15:59 EDT) Note to Patient The following pathology results have been interpreted by your pathologist and may be available to you before your health provider has had the opportunity to review them. Please allow time for your provider to receive these results and explore management options, if applicable. 09/26/2021 14:12 [facility] Final Diagnosis A. SKIN OF MEDIAL CANTHUS, RIGHT, BIOPSY: - Basal cell carcinoma, nodular type. - Basal cell carcinoma present at peripheral and deep tissue edges. B. SKIN OF CHEEK, RIGHT, BIOPSY: - Basal cell carcinoma, nodular type. - Basal cell carcinoma present peripheral and deep tissue edges. 09/26/2021 14:12 [facility] Attestation By the signature below, the attending physician certifies that they have 1) personally conducted a gross and/or microscopic examination of the described specimen(s), and/or personally interpreted the results of laboratory testing of the described specimen(s), and 2) personally rendered or confirmed the above diagnosis. 09/26/2021 14:12 [facility] at 1412 Microscopic Description Irregularly [...] of the islands and stroma. 09/26/2021 14:12 [facility] Clinical History Medial canthus lesion suspucius for malignancy, cheek lesion suspicious for malignancy; clinical diagnosis code: D48.5 09/26/2021 14:12 EDT [facility] Gross Description A. Received in [...] inked and submitted entirely in B1. DAVID FLANNERY([facility]) 09/25/2021 6:39 09/26/2021 14:12 EDT [facility] Performing Lab [facility] 09/26/2021 14:12 T [facility] Scanned Images 09/26/2021 14:12 T [facility] Tissue TISSUE SPECIMEN FROM SKIN / Unknown Collection, Other / Unknown 09/24/2021 15:59 EDT 09/24/2021 17:14 EDT Tissue specimen (specimen) SPECIMEN FROM SKIN / Unknown 09/24/2021 15:59 EDT 09/24/2021 17:14 EDT Whitley Elias MD PATHOLOGY ORDERABLES [facility] [address] [place] [address] documented in this encounter Visit Diagnoses Diagnosis Neoplasm of uncertain behavior of skin of eyelid- Primary Neoplasm of uncertain behavior of skin documented in this encounter Care Teams Auto Appraiser Relationship Specialty Start Date End Date Unknown, Provider, PCP - General 01/25/21 12/02/21 documented as of this encounter
[2023-09-15] MEDS: Ondansetron 4 MG/2 ML VIAL IVP (08:53)
[2023-09-15 08:57] LABS: Abs Immature Grans 0.07 10^3/uL (0.0-0.06); HCT 41.4 % (36.0-46.0); HGB 13.7 g/dL (11.2-15.7); MCH 28.9 pg (27.0-33.0); MCHC 33.1 % (32.0-36.0); MCV 87 fL (80-95); MPV 9.7 fL (8.0-11.0); Platelet Count 275 10^3/uL (130-400); RBC 4.74 10^6/uL (3.93-5.22); RDW 13.3 % (11.7-14.6)
[2023-09-15 09:14] LABS: Absolute Neutrophil Count 9.88 10^3/uL (1.2-6.7); Bands % 0 %
[2023-09-15 09:15] LABS: Absolute Monocyte Count 1.13 10^3/uL (0.1-0.8); Atypical Lymphocytes % 0 %; Diff Comment Manual Differential; RBC Morphology Normal
[2023-09-15 09:19] LABS: ALT 15 U/L (14-59); AST 11 U/L (15-37); Albumin 2.9 g/dL (3.4-5.0); Alkaline Phosphatase 121 U/L (46-116); Anion Gap 11.5 mmol/L (3-11); BUN 19 mg/dL (7-18); Bilirubin, Total 0.67 mg/dL (0.2-1.0); CO2 22.5 mmol/L (21.0-32.0); Calcium 8.5 mg/dL (8.5-10.1); Chloride 105 mmol/L (98-107); Estimated GFR 56.25 (mL/min/1.73m2); Glucose 132 mg/dL (74-106); Magnesium 1.8 mg/dL (1.8-2.4); Potassium 3.5 mmol/L (3.5-5.1); Sodium 139 mmol/L (136-145); Total Protein 6.3 g/dL (6.4-8.2)
--- NOTE | 2023-09-15 09:46 | ED.GENADUL_ITS ---
Discharge Plan Disposition Patient Disposition: Home Discharge Details Clinical Impression: Diarrhea Primary Care Provider: Jinny Camacho ED Provider: Cholo Leger Home Meds and New Rx's Prescriptions: No Action atorvastatin 40 mg tablet 40 mg PO DAILY Qty: 90 3RF fluoxetine 20 mg capsule 20 mg PO HS Qty: 90 3RF furosemide 20 mg tablet 10 mg PO BID@0830,1600 Qty: 90 3RF electrolytes-dextrose [Pedialyte] Solution 10 ml PO 4-6XD PRN (Reason: diarrhea; dehydration) Qty: 1000 1RF Rx Instructions: Take while dehydrated x 2 weeks loperamide 2 mg capsule 2 mg PO QID PRN (Reason: loose stool) Qty: 10 0RF Rx Instructions: Pt taking OTC x 4-5 days acetaminophen [Acetaminophen Extra Strength] 500 MG tablet 500 mg PO Q4H PRN Qty: 2 Patient Comments: Not taking at present. CG methimazole 10 mg tablet See Rx Instructions .ROUTE .COMPLEX Qty: 135 3RF Dose Instruction: TAKE 1 TABLET BY MOUTH DAILY Rx Instructions: TAKE 1.5 TABLET BY MOUTH DAILY potassium chloride [Klor-Con M20] 20 mEq tablet,ER particles/crystals 20 meq PO DAILY Qty: 90 3RF carvedilol 3.125 mg tablet 3.125 mg PO BID Qty: 180 3RF Discharge Instructions Instructions: Diarrhea, Adult ED Additional Instructions: * please follow up with your PCP for re-evaluation of ongoing symptoms * your blood work today is unremarkable * you weren't able to provide a stool sample, this would be the next step in the evaluation of your ongoing loose stools. this can be done through your PCP office. HPI General Date/Time Provider Initiated Documentation: 09/15/23 08:22 . Limitations to Documentation: no limitations . Information obtained by: patient and old records reviewed . HPI Narrative: 83-year-old female with past medical history of thyroid dysfunction, diabetes CKD presents for evaluation of persistent diarrhea. Patient reports that the symptoms have been ongoing for quite some time. She was evaluated for this in the emergency department on September 05. At that time she reported multiple bowel movements that are watery. Not associated with abdominal pain. She was found to have low potassium levels. Since then, she reports improvement in the amount of diarrhea. She states that she has been eating a lot of oatmeal. She reports that yesterday she felt fine, but then states overnight she had a large amount of stool output. She reports that the stool was watery with chunks in it. Not associated with abdominal pain, fever or chills, no vomiting. Reports a decreased appetite, but states she is still drinking. Related Data Home Medications ?Medication ?Instructions ?Recorded ?Confirmed acetaminophen 500 mg tablet 500 mg PO Q4H PRN ##2 12/21/12 09/15/23 (Acetaminophen Extra Strength) methimazole 10 mg tablet See Rx Instructions .Route 08/13/22 09/15/23 .COMPLEX #135 tabs carvedilol 3.125 mg tablet 3.125 mg PO BID #180 tabs 01/12/23 09/15/23 potassium chloride 20 mEq 20 meq PO DAILY #90 tabs 01/12/23 09/15/23 tablet,extended release(part/cryst) (Klor-Con M) atorvastatin 40 mg tablet 40 mg PO DAILY #90 tab-caps 01/20/23 09/15/23 fluoxetine 20 mg capsule 20 mg PO HS #90 tabs 01/20/23 09/15/23 furosemide 20 mg tablet 10 mg (1/2 x 20 mg) PO 01/20/23 09/15/23 BID@0830,1600 #90 tabs electrolytes-dextrose oral 10 ml PO 4-6XD PRN diarrhea; 09/11/23 09/15/23 solution (Pedialyte oral solution) dehydration #1,000 mL loperamide 2 mg capsule 2 mg PO QID PRN loose stool #10 09/11/23 09/15/23 caps Previous Rx's ?Medication ?Instructions ?Recorded methimazole 10 mg tablet See Rx Instructions .Route 08/13/22 .COMPLEX #135 tabs carvedilol 3.125 mg tablet 3.125 mg PO BID #180 tabs 01/12/23 potassium chloride 20 mEq 20 meq PO DAILY #90 tabs 01/12/23 tablet,extended release(part/cryst) (Klor-Con M) atorvastatin 40 mg tablet 40 mg PO DAILY #90 tab-caps 01/20/23 fluoxetine 20 mg capsule 20 mg PO HS #90 tabs 01/20/23 furosemide 20 mg tablet 10 mg (1/2 x 20 mg) PO 01/20/23 BID@0830,1600 #90 tabs electrolytes-dextrose oral 10 ml PO 4-6XD PRN diarrhea; 09/11/23 solution (Pedialyte oral solution) dehydration #1,000 mL loperamide 2 mg capsule 2 mg PO QID PRN loose stool #10 09/11/23 caps Allergies Allergy/AdvReac Type Severity Reaction Status Date / Time Sulfa (Sulfonamide Allergy Unknown ? Verified 09/11/23 13:04 Antibiotics) Penicillins Allergy RASH Verified 09/11/23 13:04 meperidine AdvReac Unknown VOMITING Verified 09/11/23 13:04 hydrocodone bitartrate (From AdvReac NAUSEA/VOMI Verified 09/11/23 13:04 Vicodin) TING propoxyphene napsylate (From AdvReac NAUSEA/VOMI Verified 09/11/23 13:04 Darvocet-N 100) TING General Stated Complaint: Nausea/Vomit/Diar CHINTAN: 3 Exam Narrative Exam Narrative: Review of Systems: All systems reviewed & are unremarkable except as noted in HPI and below Well-developed, no acute distress NCAT PERRL, normal conjunctiva Moist mucous membranes Upper teeth missing, lower teeth with some missing, intact teeth are very carious RRR no murmur Unlabored respiratory effort clear bilaterally Nondistended abdomen soft nontender Extremities w/o deformity, no cyanosis, no edema No rashes or lesions. no focal neurologic deficits Appropriate mood and affect Course Vital Signs Vital signs: Vital Signs Temperature 36.9 C 09/15/23 08:29 Pulse 94 H 09/15/23 08:29 Respiratory Rate 18 09/15/23 08:29 Blood Pressure 112/66 09/15/23 08:29 Pulse Oximetry 97 09/15/23 08:29 Temperature 36.9 C 09/15/23 08:29 Pulse 77 09/15/23 09:41 Respiratory Rate 18 09/15/23 09:41 Respiratory Effort Normal, Non-Labored 09/15/23 08:58 Blood Pressure 117/93 H 09/15/23 09:41 Blood Pressure Position Sitting 09/15/23 08:29 Pulse Oximetry 96 09/15/23 09:41 Oxygen Delivery Method Room Air 09/15/23 09:41 Oxygen Flow Rate 0 09/15/23 09:41 Lab/Test Results Lab/Test Results: Laboratory Tests Range/Units 09/15/23 08:50 WBC (4.4-10.8) 10^3/uL 12.50 H RBC (3.93-5.22) 10^6/uL 4.74 Hgb (11.2-15.7) g/dL 13.7 Hct (36.0-46.0) % 41.4 MCV (80-95) fL 87 MCH (27.0-33.0) pg 28.9 MCHC (32.0-36.0) % 33.1 RDW (11.7-14.6) % 13.3 Plt Count (130-400) 10^3/uL 275 MPV (8.0-11.0) fL 9.7 Immature Gran % % 0.0 Neutrophils % % 79.0 Band Neutrophils % % 0 Lymphocytes % % 12.0 Atypical Lymphs % % 0 Monocytes % % 9.0 Eosinophils % % 0.0 Basophils % % 0.0 Nucleated RBC % (0.0-0.3) % 0.0 Absolute Neutrophils (1.2-6.7) 10^3/uL 9.88 H Absolute Lymphocytes (1.2-3.4) 10^3/uL 1.50 Absolute Monocytes (0.1-0.8) 10^3/uL 1.13 H Absolute Eosinophils (0.0-0.7) 10^3/uL 0.00 Absolute Basophils (0.0-0.2) 10^3/uL 0.00 RBC Morphology Normal Sodium (136-145) mmol/L 139 Potassium (3.5-5.1) mmol/L 3.5 Chloride (98-107) mmol/L 105 Carbon Dioxide (21.0-32.0) mmol/L 22.5 Anion Gap (3-11) mmol/L 11.5 H BUN (7-18) mg/dL 19 H Creatinine (0.55-1.02) mg/dL 1.0 Est GFR (CKD-EPI 2020) (mL/min/1.73m2) 56.25 Glucose (74-106) mg/dL 132 H Calcium (8.5-10.1) mg/dL 8.5 Magnesium (1.8-2.4) mg/dL 1.8 Total Bilirubin (0.2-1.0) mg/dL 0.67 AST (15-37) U/L 11 L ALT (14-59) U/L 15 Alkaline Phosphatase (46-116) U/L 121 H Total Protein (6.4-8.2) g/dL 6.3 L Albumin (3.4-5.0) g/dL 2.9 L Medical Decision Making Emergent evaluation of persistent diarrhea. The patient reports ongoing symptoms for about 2 weeks now. She states that she has been seen by emergency department, and I also noted in her chart review that she is also followed up with physician and had repeat outpatient labs which were unremarkable. The patient is not endorsing a significant quantity of stool or not frequent bowel movements. Is not associated with abdominal pain, so I did have a very low suspicion for an acute intra-abdominal process. She did complete antibiotics recently for a dental infection, so would consider C. difficile or other infectious diarrhea. Also consider functional diarrhea. Given the amount of output and her overall well appearance, doubt electrolyte derangements. Mild elevation in white blood cell count which has increased over the last few weeks. No clear etiology of the infection noted. Her electrolytes are without derangement. The patient was observed in the emergency department for quite some time and was unable to provide a stool sample. Discussed the importance of the stool sample with the patient however she still was not able to provide 1. I advised that if she is having persistent diarrhea that this would be the next step in her workup and that she should follow-up with her PCP to get outpatient stool studies. At this time I do not feel that there is any further emergent workup needed. Recommended continued supportive care at home and if she is unable to tolerate anything by mouth notices decreased urine output, she should return to the emergency department. Also advised to monitor her symptoms of significant abdominal pain or increased output. However Medical Records Medical records reviewed: Yes I reviewed the patient's medical records. Lab Data Lab results reviewed: Yes I reviewed the patient's lab results. Quality:SDOH Health Related Social Needs: No Data to Display PFSH All Active Problems Diarrhea (Acute) Acute hypokalemia (Acute) Dental infection (Acute) Graves' orbitopathy (Acute ~08/2022) 09/09/22 Endocrinology - being managed conservatively Macular hole of right eye (Acute ~05/2022) Asymptomatic bilateral carotid artery stenosis (Acute ~02/2022) 03/10/22 Vascular Surg Eyelid lesion (Acute) Cardiomyopathy (Acute) Acute kidney injury (Acute) CHF (congestive heart failure) (Acute) Graves disease (Acute 10/12/19) Roman Pizano MD [facility] Fatigue (Acute) EKG abnormalities (Acute) Tachycardia (Acute) Hyperthyroidism (Chronic) Forgetfulness (Acute) Abnormal blood chemistry (Acute) Depression (Chronic 04/14/14) Elevated hemoglobin A1c (Chronic) History of anemia (Acute) Tobacco use disorder (Acute) Status post total left knee replacement (Chronic) 2007 Internal derangement of right knee (Acute) Injection: 06/30/2018; 03/04/2018; 12/23/2017 Restless legs syndrome (Acute 06/25/12) Palpitations (Acute 12/16/16) Osteoarth NOS-l/leg (Acute 06/25/12) Loc osteoarth NOS-l/leg (Acute 06/25/12) Hyperlipidemia (Chronic 04/24/11) PCEq 12.5%; LDL baseline 174 12/2016 labwork: 10-year ASCVD risk = ~23.2% --> switched from moderate to high intensity statin therapy Chronic kidney disease, stage III (moderate) (Acute 07/29/12) 12/2010 US WNL Anxiety (Chronic) Benign hypertension (Chronic) Gastroesophageal reflux disease (Chronic) Mechanical complication of internal orthopedic device (Acute 11/29/12) 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 Revision femoral component of left total knee replacement 11-29-12 by Cy Valdivia M.D. Medical History COVID 03/02/23 Influenza A Skin lesion of face cancer per pt report, s/p surgery Mumps (12/16/16) Rheumatic fever (12/16/16) Varicella (12/16/16) Impaired fasting glucose (06/28/12) Neoplasm of skin of forehead 10/29/22 [facility] Derm - shave bx done BCC (basal cell carcinoma) (~11/2021) R Medial Canthus 10/29/22-R superior forehead-UV Dermatology OA (osteoarthritis) IFG (impaired fasting glucose) CKD (chronic kidney disease) Hyperlipidemia Depression Anxiety Surgical History S/P Mohs surgery for basal cell carcinoma (~12/09/21) R Medial Canthus 04/15/22 R Cheek, and chin Replacement of total knee joint (10/04/07) LEFT Extraction of cataract B/L Family History Mother , ??? at age 56. Neoplasm Abdominal Father , Heart issues at age 77. Heart disease Myocardial infarction Neoplasm Colon CA dx'ed ??? Son Diabetes Daughter No problems noted. 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
== END 2023-09-15 10:43 | disposition home or self-care (01) ==
PROVIDERS: Emergency Provider Emergency Medicine; PCP Nurse Practitioner
DX: R19.7 Diarrhea, unspecified (principal); R11.0 Nausea; I12.9 Hypertensive chronic kidney disease with stage 1 through stage 4 chronic kidney disease, or unspecified chronic kidney disease; E11.22 Type 2 diabetes mellitus with diabetic chronic kidney disease; N18.30 Chronic kidney disease, stage 3 unspecified; E78.5 Hyperlipidemia, unspecified; Z79.84 Long term (current) use of oral hypoglycemic drugs; Z87.891 Personal history of nicotine dependence
CPT/HCPCS: 80053; 96374; 99284; 83735; 85025; 99283; J2405

== ENCOUNTER 2023-09-18 22:37 | Outpatient (REF) | payer MEDICARE, SELFPAY ==
[2023-09-16 17:32] LABS: C Diff PCR Positive (Negative)
[2023-09-17 13:45] LABS: Campylobacter PCR Negative (Negative); Salmonella PCR Negative (Negative); Shiga Toxin PCR Negative (Negative); Shigella/Enteroinvasive Ecoli Negative (Negative)
[2023-09-18 21:00] LABS: Calprotectin >3000 mcg/g
--- OUTSIDE RECORDS SUMMARY | 2023-09-18 22:38 | XMS_ITS | Encounter Summary ---
Author Organization [facility] Address [address] [place] [address] Care Team Providers Care Trucker Name Role Phone Jinny Camacoh REGIONAL MANAGER Primary Care Provider [phone] Reason for Visit * Reason Onset Date Comments Appointment Related 05/20/2022 Encounter Details Date Type Department Care Team (Late st Contact Info) Description 05/20/2022 Telephone [facility] Dermatology 5th Floor [address] [address] Kim Maravilla, RN Appointment Related Social History [facility] 3rd [facility] [address] [place], [place] [address] Nikita Kumari PA-C 111 [facility], [address] [place] [phone] documented as of this encounter Visit Diagnoses Not on filedocumented in this encounter Care Teams Trucker Relationship Specialty Start Date End Date Jinny Camacho NP [address] [place] [id number] PCP - General Family Medicine - Primary Care 12/03/21 documented as of this encounter
--- OUTSIDE RECORDS SUMMARY | 2023-09-18 22:38 | XMS_ITS | Encounter Summary ---
Author Organization [facility] Address [address] [place] [address] Care Team Providers Care Solo Truck Driver Name Role Phone Jinny Camacho Wagner [employer]ER Primary Care Provider [phone] Reason for Visit * Reason Onset Date Comments Appointment Related 01/21/2022 Calling to ariella yeboah appointment with Dr. Whitley Elias in Ophthalmology January 23 at 10:30am. Encounter Details Date Type Department Care Team (Late st Contact Info) Description 01/21/2022 Telephone [facility] Ophthalmology - [address] [id number] Whitley Elias MD 111 [facility], [address] [place] [address] Appointment Related (Calling to cancel [...] reschedule in February. Her phone number is [phone]. documented in this encounter Plan of Treatment Upcoming Encounters Date Type Department Care Team (Late st Contact Info) Description 10/27/2023 12:50 EDT Office Visit [facility] Dermatology 3rd Floor [address] [phone] Nikita Kumari, PARogeC 111 [facility], [facility] [address] [place] [phone] documented as of this encounter Visit Diagnoses Not on filedocumented in this encounter Care Teams Solo Truck Driver Relationship Specialty Start Date End Date Jinny Camacho NP [address] [place] [address] PCP - General Family Medicine - Primary Care 12/03/21 documented as of this encounter
--- OUTSIDE RECORDS SUMMARY | 2023-09-18 22:38 | XMS_ITS | Encounter Summary ---
Author Organization [facility] Address [address] [place] [address] Care Team Providers Care Publications Writer Name Role Phone JaniceJinny cox GUARD IMMIGRATION Primary Care Provider [phone] Reason for Visit * Reason Onset Date Comments Appointment Related 01/21/2022 Encounter Details Date Type Department Care Team (Late st Contact Info) Description 01/21/2022 Telephone [facility] Dermatology 3rd Floor [address] [phone] Dodie Patricia MD 111 [facility], [address] [place] [address] Appointment Related Social History Tobacco [...] Visit [facility] Dermatology 3rd Floor [facility] [address] [place], [place] [phone] Nikita Kumari PA-C 111 [facility], [address] [place] [phone] documented as of this encounter Visit Diagnoses Not on filedocumented in this encounter Care Teams Publications Writer Relationship Specialty Start Date End Date Jinny Camacho NP [address] [place] [id number] PCP - General Family Medicine - Primary Care 12/03/21 documented as of this encounter
--- OUTSIDE RECORDS SUMMARY | 2023-09-18 22:38 | XMS_ITS | Clinical Summary ---
Author Organization [facility] Address [address] [place] [address] Care Team Providers Care Public Relations Consultant Name Role Phone Janice Jinny A REFRIGERATION LEAD Primary Care Provider [phone] Allergies No known active allergies Medications Medication [...] Overview: Added automatically from request for surgery [id number] Encounters Date Type Department Care Team Description 09/16/2023 Lab Requisition [facility] Pathology & Laboratory Medicine - [facility] [address] [place] [address] Outr Resulting Lab, Provider from Last 3 Months Surgical History Surgery Date Site/Laterality Comments CATARACT [...] Info) Description 10/27/2023 12:50 EDT Office Visit [facility] Dermatology 3rd [address] [address] Nikita Kumari PARogeC [address] [place] [address], [address] 5 [place] [address] Health Maintenance Due Date Last Done Comments RSV Immunization ( o r 60+ Years) (1 - 1-dose 60+ series) 2001 Fall Risk Screening 2006 COVID-19 Vaccine ( season) 2022 Procedures Procedure Name Priority Date/Time Associated Diagnosis Comments FECAL BACTERIAL PATHOGENS BY PCR Routine 09/16/2023 11:00 EDT from Last 3 Months Results * FECAL BACTERIAL PATHOGENS BY PCR (09/16/2023 11:00 EDT) Salmonella PCR Negative Negative 09/17/2023 13:40 EDT [facility] Shigella/Enteroin vasive E. coli Negative Negative 09/17/2023 13:40 EDT [facility] HN LAB CAMPYLOBACTER PCR Negative Negative 09/17/2023 13:40 EDT [facility] Shiga Toxin PCR Negative Negative 13:40 EDT [facility] Feces SPECIMEN FROM RECTUM / Unknown 09/16/2023 11:00 EDT 09/16/2023 21:40 EDT Provider Outr Resulting Lab MICROBIOLOGY - GENERAL ORDERABLES [facility] [address] [place], [place] [address] from Last 3 Months Care Teams Public Relations Consultant Relationship Specialty Start Date End Date Jinny Camacho NP [address] [place] [address] PCP - General Family Medicine - Primary Care 12/03/21
--- OUTSIDE RECORDS SUMMARY | 2023-09-18 22:38 | XMS_ITS | Encounter Summary ---
Author Organization [facility] Address [address] [place] [address] Care Team Providers Care Financial Auditor Name Role Phone Jinny Camacho Wagner CAREER DEVELOPMENT ASSOCIATE Primary Care Provider [phone] Encounter Details Date Type Department Care Team (Late st Contact Info) Description 09/16/2023 Lab Requisition [facility] Pathology & Laboratory Medicine [address] [phone] Outr Resulting Lab, Provider Social History Tobacco [...] No 12/10/2021 documented as of this encounter Plan of Treatment Upcoming Encounters Date Type Department Care Team (Late st Contact Info) Description 10/27/2023 12:50 EDT Office Visit [facility] Dermatology 3rd Floor [address] [place] [address] Nikita Kumari PA-C 111 [facility] 5 [place] [phone] documented as of this encounter Procedures Procedure Name Priority Date/Time Associated Diagnosis Comments FECAL BACTERIAL PATHOGENS BY PCR Routine 09/16/2023 11:00 EDT documented in this encounter Results * FECAL BACTERIAL PATHOGENS BY PCR (09/16/2023 11:00 EDT) Salmonella PCR Negative Negative 09/17/2023 13:40 EDT [facility] Shigella/Enteroin vasive E. coli Negative Negative 09/17/2023 13:40 EDT [facility] HN LAB CAMPYLOBACTER PCR Negative Negative 09/17/2023 13:40 EDT [facility] Shiga Toxin PCR Negative Negative 13:40 EDT [facility] Feces SPECIMEN FROM RECTUM / Unknown 09/16/2023 11:00 EDT 09/16/2023 21:40 EDT Provider Outr Resulting Lab MICROBIOLOGY - GENERAL ORDERABLES [facility] [address] [place], [place] [address] documented in this encounter Visit Diagnoses Not on filedocumented in this encounter Care Teams Financial Auditor Relationship Specialty Start Date End Date Jinny Camacho NP [address] [place] [address] PCP - General Family Medicine - Primary Care 12/03/21 documented as of this encounter
--- OUTSIDE RECORDS SUMMARY | 2023-09-18 22:38 | XMS_ITS | Encounter Summary ---
Author Organization [facility] Address [address] [place] [address] Care Team Providers Care Data Operations Director Name Role Phone JaniceJinny SCREWMAKER AUTOMATIC Primary Care Provider [phone] Reason for Visit * Reason Onset Date Comments Appointment Related 01/21/2022 Encounter Details Date Type Department Care Team (Late st Contact Info) Description 01/21/2022 Telephone [facility] Ophthalmology - [address] [phone] Whitley Elias MD 111 [facility], [address] [place] [address] Appointment Related Social History Tobacco [...] Office Visit [facility] Dermatology 3rd Floor [address] [address] Nikita Kumari PA-C 111 [facility], [address] [place] [phone] documented as of this encounter Visit Diagnoses Not on filedocumented in this encounter Care Teams Data Operations Director Relationship Specialty Start Date End Date Jinny Camacho NP [address] [place] [address] PCP - General Family Medicine - Primary Care 12/03/21 documented as of this encounter
--- OUTSIDE RECORDS SUMMARY | 2023-09-18 22:38 | XMS_ITS | Referral Summary ---
Author Organization [facility] Address [address] [place] [address] Care Team Providers Care Data Clerk Name Role Phone JaniceJinny LARGE ENGINE ASSEMBLER Primary Care Provider [phone] Encounters Date Type Department Care Team Description 09/16/2023 Lab Requisition [facility] Pathology & Laboratory Medicine - [address] [address] Outr Resulting Lab, Provider from Last 3 Months Allergies No known active allergies Medications Medication [...] Overview: Added automatically from request for surgery [id number] Social History Tobacco Use Types Packs/Day Years [...] Visit [facility] Dermatology 3rd Floor [address] [address] Nikita Kumari PA-C [address] [place] [address], [address] 5 [place] [phone] Procedures Procedure Name Priority Date/Time Associated Diagnosis Comments FECAL BACTERIAL PATHOGENS BY PCR Routine 09/16/2023 11:00 EDT from Last 3 Months Results * FECAL BACTERIAL PATHOGENS BY PCR (09/16/2023 11:00 EDT) Salmonella PCR Negative Negative 09/17/2023 13:40 EDT [facility] Shigella/Enteroin vasive E. coli Negative Negative 09/17/2023 13:40 EDT [facility] HN LAB CAMPYLOBACTER PCR Negative Negative 09/17/2023 13:40 EDT [facility] Shiga Toxin PCR Negative Negative 13:40 EDT [facility] Feces SPECIMEN FROM RECTUM / Unknown 09/16/2023 11:00 EDT 09/16/2023 21:40 EDT Provider Outr Resulting Lab MICROBIOLOGY - GENERAL ORDERABLES [facility] [address] [place], [place] [address] from Last 3 Months Caitlin Marte A Personal/Family Self 1940 [address] [facility] [address] [place] [id number] Caitlin Marte A Personal/Family Self 1940 [address] [facility] [address] [place] [address] Caitlin Marte A Personal/Family Self 1940 [address] [facility] [address] [place] [address] Caitlin Marte A Personal/Family Self 1940 [address] [facility] [address] [place] [address] Caitlin Marte Personal/Family Self 1940 [address] [facility] [address] [place], [place] [address] Personal/Family Self [address] [facility] 2 [place] [address] Care Teams Data Clerk Relationship Specialty Start Date End Date Jinny Camacho NP [address] [place] [address] PCP - General Family Medicine - Primary Care 12/03/21
--- OUTSIDE RECORDS SUMMARY | 2023-09-18 22:38 | XMS_ITS | Encounter Summary ---
Author Organization [facility] Address [address] [place] [address] Care Team Providers Care Service Engineer Name Role Phone JaniceJinny SCARFER OPERATOR Primary Care Provider [phone] Reason for Visit * Reason Comments Basal Cell Carcinoma Right cheek * Office Procedure (Routine) - Authorization Not Required Specialty Diagnoses / Procedures [facility] To Contact Diagnoses BCC (basal cell carcinoma of skin) M1 BCC Procedures ND ADJ TISS XFER LID,NOS,EAR <10 SQCM ND ADJ TISS XFER ANY AREA,30.1-60 SQCM ND SPLIT GRFT,HEAD,FAC,HAND,FEET <100 SQCM ND SPLIT GRFT,HEAD,FAC,HAND,FEET EA 100 SQCM ND FULL THICK GRFT NOS,EAR,LID <20 SQCM ND FULL THICK GRFT NOS,EAR,LID ADD 20SQ ND FORM SKIN PEDICLE FLAP LID,EAR,NOSE ND COMPOSITE SKIN GRAFT ND MOHS, 1 STAGE, HEAD/NECK/HAND/FEET/GENTI AL MOHS [facility] Dermatology [address] [place] [address] Dodie Patricia MD 111 [facility], [address] [place] [address] Referral ID Status Reason Start Date Expiration Date Visits Requested Visits Authorized [id number] Authorization Not Required 01/23/2022 1 1 Encounter Details Date Type Department Care Team (Late st Contact Info) Description 04/15/2022 10:30 EST Office Visit [facility] Dermatology 5th Floor [address] [address] Dodie Patricia MD [address] [place] [address], [address] [place] [address] Basal cell carcinoma (BCC) of [...] have one), and don't bend over to sheepskin pickler objects or tie shoes for a few [...] rapidly swells. CONTACT INFORMATION: To reach the communication equipment mechanic physician: During office hours: 8:00 am - 5:00 PM Thursday through Thursday Call: [phone] Ask to speak with a surgery nurse AFTER HOURS/WEEKENDS/HOLIDAYS: First call Dr. Dodie Patricia's cell phone: [phone]; if unable to reach Dr. Patricia, Call [phone] for the MOHS surgeon communication equipment mechanic. LONG-TERM WOUND CARE INSTRUCTIONS *Once the bandages [...] Patricia MD Dermatology & Mohs Surgery Associate Industrial Maintenance Technician, Mohs Surgery Fellowship social worker delinquency prevention, Dermatology Division [facility] 04/15/2022 15:38 Risk factors: Pacemaker/ICD: none Anticoagulants: none Total joint replacements/valves: none Allergies: Patient has No Known Allergies. Immunosuppression: none Smoking status: reports that she has quit smoking. She has never used smokeless tobacco MOHS OPERATIVE REPORT Patient Name: Caitlin Marte Date of Service: April 15, 2022 Surgeon and Pathologist: Dodie Patricia MD Chemistry Research Assistant: Domingo Hawley MD Case #: [id number] Mohs [...] handed personally by the doctor to the pharmacy picking technician for frozen sectioning. The tissue was [...] INFORMATION: Caitlin Marte SURGEON: Dodie Patricia MD PMP: Domingo Hawley MD and Jonn Nolasco MD [...] BIOPSY PROCEDURE NOTE PATIENT INFORMATION: Caitlin Marte [id number] 1940 DATE OF PROCEDURE: 04/15/2022 SURGEON: Dodie Patricia MD PMP: Domingo Hawley MD DIAGNOSIS: Neoplasm of uncertain [...] 2022 Surgeon and Pathologist: Dodie Patricia MD Chemistry Research Assistant: Domingo Hawley MD Case #: [id number] Mohs [...] handed personally by the doctor to the pharmacy picking technician for frozen sectioning. The tissue was [...] throughout. INTERMEDIATE REPAIR PATIENT INFORMATION: Caitlin [facility] SURGEON: Dodie Patricia MD PMP: Domingo Hawley MD PREOPERATIVE DIAGNOSIS: Defect following [...] Patricia MD Dermatology & Mohs Surgery Associate Industrial Maintenance Technician, Mohs Surgery Fellowship social worker delinquency prevention, Dermatology Division [facility] 04/15/2022 15:39 documented in this encounter Plan of Treatment Upcoming Encounters Date Type Department Care Team (Late st Contact Info) Description 10/27/2023 12:50 EDT Office Visit [facility] Dermatology 3rd Floor [address] [address] Nikita Kumari PA-C [address] [place] [address], Level 5 [place] [phone] documented as of this encounter Procedures Procedure Name Priority Date/Time Associated Diagnosis Comments PROCEDURE REPORTS - SCANNED 04/18/2022 7:04 EST documented in this encounter Results * PROCEDURE REPORTS - SCANNED (04/18/2022 7:04 EST) 04/18/2022 7:04 EST Scan 2 Tar Man PROCEDURE/MINOR CHIQUITA GICAL ORDERABLES documented in this encounter Visit Diagnoses Diagnosis Basal cell carcinoma (BCC) of chin- Primary Basal cell carcinoma (BCC) of right cheek Neoplasm of uncertain behavior of skin documented in this encounter Care Teams Service Engineer Relationship Specialty Start Date End Date Jinny Camacho NP [address] [place] [address] PCP - General Family Medicine - Primary Care 12/03/21 documented as of this encounter
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
--- OUTSIDE RECORDS SUMMARY | 2023-09-18 22:38 | XMS_ITS | Encounter Summary ---
Author Organization [facility] Address [address] [place] [address] Care Team Providers Care Cafe Associate Name Role Phone JaniceJinny PAINTER SKI EDGE Primary Care Provider [phone] Reason for Visit * Reason Comments Post-OP Follow Up Encounter Details Date Type Department Care Team (Late st Contact Info) Description 12/16/2021 12:30 EDT Post-op Visit [facility] Ophthalmology - [address] [phone] Whitley Elias MD 111 [facility], Level 5 [place] [address] Basal cell carcinoma (BCC) of [...] removal) Neurologic: Psychiatric: Endocrine: Hematologic: Immunologic: NL Wireless Sales Expert: Exposures: Other: Attestation: Allergies include: Patient has [...] mg by mouth 3 times daily. ??? ligqivte-oewapinzm-psokmredxbmos (MAXITROL) ophthalmic ointment Apply to all wounds [...] Visit [facility] Dermatology 3rd Floor [address] [phone] Nikita Kumari PA-C 111 [facility], [address] [place] [address] documented as of this encounter [...] quiet Iris Round and reactive Care Teams Cafe Associate Relationship Specialty Start Date End Date Jinny Camacho, GHAZALA [address] [place] [address] PCP - General Family Medicine - Primary Care 12/03/21 documented as of this encounter
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
--- OUTSIDE RECORDS SUMMARY | 2023-09-18 22:38 | XMS_ITS | Encounter Summary ---
Author Organization [facility] Address [address] [place] [address] Care Team Providers Care Engineering Secretary Name Role Phone JaniceJinny DIRECTOR PRODUCT Primary Care Provider [phone] Reason for Visit * Reason Comments Post-OP Follow Up Encounter Details Date Type Department Care Team (Late st Contact Info) Description 02/28/2022 14:30 EST Post-op Visit [facility] Ophthalmology - [address] [phone] Whitley Elias MD 111 [facility], Level 5 [place] [address] Basal cell carcinoma (BCC) of [...] NL Endocrine: NL Hematologic: NL Immunologic: NL Hob Machine Operator: Menopause Exposures: None Other: Attestation: Allergies include: [...] [facility] Derm[facility] 3rd Floor [address] [address] Nikita Kumari, DANDRE [address] [place] [address], [facility] 5 [place] [address] documented as of this encounter [...] reactive Round and rusty ctive Care Teams Engineering Secretary Relationship Specialty Start Date End Date Jinny Camacho, DIRECTOR PRODUCT [address] [place] [address] PCP - General Family Medicine - Primary Care 12/03/21 documented as of this encounter
--- OUTSIDE RECORDS SUMMARY | 2023-09-18 22:38 | XMS_ITS | Encounter Summary ---
Author Organization [facility] Address [address] [place] [address] Care Team Providers Care Glue Specialty Supervisor Name Role Phone JaniceJinny RAP ARTIST Primary Care Provider [phone] Reason for Visit * Reason Comments Follow-up Skin lesions Encounter Details Date Type Department Care Team (Late st Contact Info) Description 10/29/2022 10:50 EDT Office Visit [facility] Dermatology 3rd Floor [address] [phone] Nikita Kumari PA-C 111 [facility], Level [address] [place] [address] History of basal cell carcinoma [...] this encounter Patient Instructions * Patient Instructions* Nkiita Kumari PA-C - 10/29/2022 10:50 EDT WOUND [...] discomfort. Tylenol, taken as directed by the hospice care sales consultant, will help relieve pain. If Tylenol does [...] choose to look at your results in [place] prior to our office contacting you, that is your right and choice. Our office policy is to have your provider or the provider???s butcher assistant contact you with your results and [...] not call the office or send a [place] message asking to discuss them. Providers are seeing patients during the day and cannot answer calls during clinic time or off hours/weekends. Unless it is an emergency, the conservation specialist provider will not review biopsy and/ or lab results. Thank you for entrusting us with your care. [facility]- Dermatology documented in this encounter [...] PATIENT INFORMATION: Caitlin Marte : MRN: [id number] SURGEON: Nikita Kumari PA-C The indication, risks, [...] [facility] Dermatology 3rd Floor [facility] [address] [place], [place] [phone] Nikita Kumari PA-C 111 [facility], Level [address] [place] [address] documented as of [...] management options, if applicable. 10/31/2022 10:36 EDT [facility] Final Diagnosis A. SKIN OF FOREHEAD, RIGHT SUPERIOR, SHAVE BIOPSY: - Basal cell carcinoma, superficial and nodular types, pigmented. See comment. - Lesion does not extend to biopsy edges in the plane of sections examined. - Lesion measures approximately 0.2 mm to the biopsy base. - Lesion measures approximately 0.8 mm to the biopsy edge. 10/31/2022 10:36 EDT [facility] Diagnosis Comment The findings are those of basal cell carcinoma, best appreciated on deeper sections. 10/31/2022 10:36 T [facility] Attestation By the signature below, the attending physician certifies that they have 1) personally conducted a gross and/or microscopic examination of the described specimen(s), and/or personally interpreted the results of laboratory testing of the described specimen(s), and 2) personally rendered or confirmed the above diagnosis. 10/31/2022 10:36 [facility] at 1036 Microscopic Description [...] islands and stroma. SOX-10 ALK PHOS (SP267, [employer]) shows a melanocytes to be generally normal [...] performance characteristics have been determined by [facility] and/or by the referring laboratory. [...] high complexity clinical laboratory testing.? 10/31/2022 10:36 [facility] Clinical History Irregular pink-brown low papule ; DDx: Pigmented BCC vs AK vs lentigo R/O LM; clinical diagnosis code: D48.5 10/31/2022 10:36 [facility] Gross Description A. Received [...] Gabi Molinai 10/30/2022 8:14 10/31/2022 10:36 EDT [facility] Performing Lab [facility] 10:36 EDT [facility] Scanned Images 10/31/2022 10:36 EDT [facility] Tissue SPECIMEN FROM SKIN / Unknown 10/29/2022 12:12 EDT 10/29/2022 16:24 EDT Nikita Kumari PA-C PATHOLOGY ORDERAB LES [facility] [address] [place] [address] documented in this encounter Visit Diagnoses Diagnosis History of basal cell carcinoma- Primary Personal history of other malignant neoplasm of skin Diffuse photodamage of skin Other chronic dermatitis due to solar radiation Seborrheic keratoses Neoplasm of uncertain behavior of skin documented in this encounter Care Teams Glue Specialty Supervisor Relationship Specialty Start Date End Date Jinny Camacho NP [address] [place] [address] PCP - General Family Medicine - Primary Care 12/03/21 documented as of this encounter
--- OUTSIDE RECORDS SUMMARY | 2023-09-18 22:39 | XMS_ITS | Encounter Summary ---
Author Organization [facility] [place] [address] Care Team Providers Care Skirt Maker Name Role Phone Jinny Camacho APRN Primary Care Provider [phone] Encounter Details Date Type Department Care Team (Late st Contact Info) Description 01/21/2022 Ancillary Procedure [place] [address] Jinny Camacho APRN [address] [place] [address] Social History Tobacco Use Types Packs/Day Years [...] Ultrasound Study (01/21/2022 12:00 AM EST) Narrative [facility] - 01/23/2022 7:25 PM EST This exam is auto-finalizing. It's purpose is for storage only. Jinny Camacoh APRN IMG FILM LIBRARY ORD ERABLES [place], [place] documented in this encounter Visit Diagnoses Not on filedocumented in this encounter Care Teams Skirt Maker Relationship Specialty Start Date End Date Jinny Camacho, ZAINAB [address] [place] [address] PCP - General Internal Medicine 10/04/19 documented as of this encounter
--- OUTSIDE RECORDS SUMMARY | 2023-09-18 22:39 | XMS_ITS | Encounter Summary ---
Author Organization [facility] Address [facility] [place] [address] Care Team Providers Care Potter Or Ceramic Artist Name Role Phone Jinny Camacho ZAINAB Primary Care Provider [phone] Encounter Details Date Type Department Care Team (Late st Contact Info) Description 11/24/2019 3:00 PM EDT Office [place] [address] Roman Pizano MD [facility] [place] [address] Hyperthyroidism Social History Tobacco Use Types Packs/Day [...] 20 of the 25-minute appointment was spent [id number]-mrrv discussing the issues above. documented in this [...] EDT) TSH 0.07(L) 0.27 - 4.20 mcIU/mL [facility] Blood specimen (specimen) 11/24/2019 4:04 PM EDT 11/24/2019 5:20 PM EDT Narrative Resulting Agency Comment Spec In Lab Roman Pizano MD CHEMISTRY ORDERABLES [facility] [place] [address] * T3 Total (11/24/2019 4:04 PM EDT) T3, Total 101 75 - 170 ng/dL [facility] Blood specimen (specimen) 11/24/2019 4:04 PM EDT 11/24/2019 5:20 PM EDT Narrative Resulting Agency Comment Spec In Lab Roman Pizano MD CHEMISTRY ORDERABLES Performing Organization Address City/[facility]/ZIP Co de Phone Number [facility] [place] [address] * (ABNORMAL) T4, free (11/24/2019 4:04 PM EDT) Free T4 0.75(L) 0.93 - 1.70 ng/dL [facility] Blood specimen (specimen) 11/24/2019 4:04 PM EDT 11/24/2019 5:20 PM EDT Narrative Resulting Agency Comment Spec In Lab Roman Pizano MD CHEMISTRY ORDERABLES Performing Organization Address [facility] Co de Phone Number [facility] [place] [address] documented in this encounter Visit Diagnoses Diagnosis Hyperthyroidism Thyrotoxicosis without mention of goiter or other cause, without mention of thyrotoxic crisis or storm documented in this encounter Care Teams Potter Or Ceramic Artist Relationship Specialty Start Date End Date Jinny Camacho, HAND DRAWER IN HELPER [address] [place] [address] PCP - General Internal Medicine 10/04/19 documented as of this encounter
--- OUTSIDE RECORDS SUMMARY | 2023-09-18 22:39 | XMS_ITS | Encounter Summary ---
Author Organization [facility] Address [facility] [place] [address] Care Team Providers Care Voice Network Administrator Name Role Phone Jinny Camacho ZAINAB Primary Care Provider [phone] Encounter Details Date Type Department Care Team (Late st Contact Info) Description 11/04/2019 Orders [place] [address] Roman Pizano MD [facility] [place] [address] Hyperthyroidism Social History Tobacco Use Types Packs/Day [...] MD CHEMISTRY ORDERABLES [facility] [place] [address] * T3 Total (11/24/2019 4:04 PM EDT) T3, Total 101 75 - 170 ng/dL [facility] Blood specimen (specimen) 11/24/2019 4:04 PM EDT 11/24/2019 5:20 PM EDT Narrative Resulting Agency Comment Spec In Lab Roman Pizano MD CHEMISTRY ORDERABLES Performing Organization Address City/[facility]/ZIP Co de Phone Number [facility] [place] [address] * (ABNORMAL) T4, free (11/24/2019 4:04 PM EDT) Free T4 0.75(L) 0.93 - 1.70 ng/dL [facility] Blood specimen (specimen) 11/24/2019 4:04 PM EDT 11/24/2019 5:20 PM EDT Narrative Resulting Agency Comment Spec In Lab Roman Pizano MD CHEMISTRY ORDERABLES Performing Organization Address City/[facility]/ZIP Co de Phone Number [facility] [place] [address] documented in this encounter Visit Diagnoses Diagnosis Hyperthyroidism Thyrotoxicosis without mention of goiter or other cause, without mention of thyrotoxic crisis or storm documented in this encounter Care Teams Voice Network Administrator Relationship Specialty Start Date End Date Jinny Camacho APRN [address] [facility] [address] PCP - General Internal Medicine 10/04/19 documented as of this encounter
--- OUTSIDE RECORDS SUMMARY | 2023-09-18 22:39 | XMS_ITS | Encounter Summary ---
Author Organization [facility] [place] [address] Care Team Providers Care Crucible Furnace Tender Name Role Phone Jinny Camacho APRN Primary Care Provider [phone] Encounter Details Date Type Department Care Team [...] on filedocumented in this encounter Care Teams Crucible Furnace Tender Relationship Specialty Start Date End Date Jinny Camacho APRN [address] [place] [address] PCP - General Internal Medicine 10/04/19 documented as of this encounter
--- OUTSIDE RECORDS SUMMARY | 2023-09-18 22:39 | XMS_ITS | Encounter Summary ---
[place] [address] Care Team Providers Care Dairy Cattle Farmer Name Role Phone Jinny Camacho APRN Primary Care Provider [phone] Reason for Visit * Reason Onset Date Comments Medication Refill 04/26/2021 Encounter Details Date Type Department Care Team (Late st Contact Info) Description 04/26/2021 Refill [place] [address] Vivi Wright I Social History Tobacco Use [...] on filedocumented in this encounter Care Teams Dairy Cattle Farmer Relationship Specialty Start Date End Date Jinny Camacho APRN [address] [place] [address] PCP - General Internal Medicine 10/04/19 documented as of this encounter
--- OUTSIDE RECORDS SUMMARY | 2023-09-18 22:39 | XMS_ITS | Encounter Summary ---
Author Organization [facility] [place] [address] Care Team Providers Care Electronic Warfare Officer Name Role Phone Jinny Camacho APPRENTICE ELECTRICIAN Primary Care Provider [phone] Encounter Details Date Type Department Care Team (Late st Contact Info) Description 03/10/2022 1:00 PM EST Tech [place] [address] Cassie Baldwin R, [place] Bilateral carotid artery [...] Text Report Department: Vascular Surgery Lab Patient: [id number] (CAITLIN MARTE) CPT: [id number] Referring Physician: ANJALI MARTINO APRN ?? Indications: [...] VASCUBASE 03/10/2022 1:04 PM EST Anjali Martino APPRENTICE ELECTRICIAN VASCULAR ORDERABLE S VASCUBASE documented in this encounter Visit Diagnoses Diagnosis Bilateral carotid artery stenosis Occlusion and stenosis of multiple and bilateral precerebral arteries without mention of cerebral infarction documented in this encounter Care Teams Electronic Warfare Officer Relationship Specialty Start Date End Date Jinny Camacho APRN [address] [place] [address] PCP - General Internal Medicine 10/04/19 documented as of this encounter
--- OUTSIDE RECORDS SUMMARY | 2023-09-18 22:39 | XMS_ITS | Encounter Summary ---
Author Organization [facility] [place] [address] Care Team Providers Care Director Bioinformatics Name Role Phone Jinny Camacho APRN Primary Care Provider [phone] Encounter Details Date Type Department Care Team (Late st Contact Info) Description 05/23/2020 Refill [place] [address] Rachel Vallecillo Social History Tobacco Use Types [...] filedocumented in this encounter Care Teams Director Bioinformatics Relationship Specialty Start Date End Date Jinny Camacho APRN [address] [place] [address] PCP - General Internal Medicine 10/04/19 documented as of this encounter
--- OUTSIDE RECORDS SUMMARY | 2023-09-18 22:39 | XMS_ITS | Encounter Summary ---
Author Organization [facility] Address [facility] [place] [address] Care Team Providers Care Canned Food Reconditioning Inspector Name Role Phone Jinny Camacho ZAINAB Primary Care Provider [phone] Encounter Details Date Type Department Care Team (Late st Contact Info) Description 09/12/2022 Telephone [place] [address] Gurdeep Duenas MD [facility] [place] [address] Social History Tobacco Use Types Packs/Day Years [...] explain worsening eye disease. Gurdeep Duenas MD Fiber Locking Supervisorhydro excavation operator Endocrinology Section [facility] documented in this encounter Plan of Treatment Not on file documented as of this encounter Visit Diagnoses Not on filedocumented in this encounter Care Teams Canned Food Reconditioning Inspector Relationship Specialty Start Date End Date Jinny Camacho APRN [address] [place] [address] PCP - General Internal Medicine 10/04/19 documented as of this encounter
--- OUTSIDE RECORDS SUMMARY | 2023-09-18 22:39 | XMS_ITS | Encounter Summary ---
Author Organization [facility] Address [facility] [place] [address] Care Team Providers Care Mutuel Teller Name Role Phone Jinny Camacho ZAINAB Primary Care Provider [phone] Encounter Details Date Type Department Care Team (Late st Contact Info) Description 10/06/2019 Orders [place] [address] Roman Pizano MD [facility] [place] [address] Hyperthyroidism Social History Tobacco Use Types Packs/Day [...] 3:25 PM EDT) TSI 7.56(H) <=0.55 IU/L [facility] Blood specimen (specimen) 10/06/2019 3:25 PM EDT 10/07/2019 7:46 AM EDT Narrative Resulting Agency Comment Spec In Lab Roman Pizano MD IMMUNOLOGY ORDERABLE S [facility] [place] [address] * (ABNORMAL) T3 Total (10/06/2019 3:25 PM EDT) T3, Total 272(H) 75 - 170 ng/dL [facility] Blood specimen (specimen) 10/06/2019 3:25 PM EDT 10/06/2019 3:39 PM EDT Narrative Resulting Agency Comment Spec In Lab Roman Pizano MD CHEMISTRY ORDERABLES Performing Organization Address City/[facility]/ZIP Co de Phone Number [facility] [place] [address] * (ABNORMAL) T4, free (10/06/2019 3:25 PM EDT) Free T4 2.80(H) 0.93 - 1.70 ng/dL [facility] Blood specimen (specimen) 10/06/2019 3:25 PM EDT 10/06/2019 3:39 PM EDT Narrative Resulting Agency Comment Spec In Lab Roman Pizano MD CHEMISTRY ORDERABLES Performing Organization Address City/[facility] Co de Phone Number [facility] [place] [address] documented in this encounter Visit Diagnoses Diagnosis Hyperthyroidism Thyrotoxicosis without mention of goiter or other cause, without mention of thyrotoxic crisis or storm documented in this encounter Care Teams Mutuel Teller Relationship Specialty Start Date End Date Jinny Camacho APRN [address] [facility] [place] [address] PCP - General Internal Medicine 10/04/19 documented as of this encounter
--- OUTSIDE RECORDS SUMMARY | 2023-09-18 22:39 | XMS_ITS | Encounter Summary ---
Author Organization [facility] Address [facility] [place] [address] Care Team Providers Care Revit Drafter Name Role Phone Jinny Camacho APRN Primary Care Provider [phone] Encounter Details Date Type Department Care Team (Late st Contact Info) Description 06/25/2020 Orders [place] [address] Roman Pizano MD [facility] [place] [address] Hyperthyroidism Social History Tobacco Use Types Packs/Day [...] storm documented in this encounter Care Teams Revit Drafter Relationship Specialty Start Date End Date Jinny Camacho APRN [address] [place] [address] PCP - General Internal Medicine 10/04/19 documented as of this encounter
--- OUTSIDE RECORDS SUMMARY | 2023-09-18 22:39 | XMS_ITS | Encounter Summary ---
Author Organization [facility] [place] [address] Care Team Providers Care Head Refrigerating Engineer Name Role Phone Jinny Camacho APRN Primary Care Provider [phone] Reason for Referral * Consultation (Routine) - Closed Specialty Diagnoses / Procedures Referred By Zoya t Referred To Contact Vascular Surgery Diagnoses Occlusion and stenosis of unspecified carotid artery Abnormal findings on diagnostic imaging of body structures ROUTINE, NEW PATIENT, B CAR DUP - carotid stenosis OSH duplex carotid bruit, [employer] / PA / Jinny Castle APRN [address] [place] [address] [facility] [address] [place] [address] Referral ID Status Reason Start Date Expiration Date V isits Requested Visits Authorized [id number] Closed Consult, Test & Treat PCP Updated and/or Approved 01/24/2022 01/24/2023 6 6 Encounter Details Date Type Department Care Team (Latest Contact Info) Description 01/24/2022 Transcribe Orders eDH Incoming Referrals [phone] Jinny Camacho APRN [address] [place], [place] [id number] Occlusion and stenosis of unspecified carotid artery; [...] structures documented in this encounter Care Teams Head Refrigerating Engineer Relationship Specialty Start Date End Date Jinny Camacho, RHIT [address] [place] [address] PCP - General Internal Medicine 10/04/19 documented as of this encounter
--- OUTSIDE RECORDS SUMMARY | 2023-09-18 22:39 | XMS_ITS | Encounter Summary ---
Author Organization [facility] Address [address] [place] [address] Care Team Providers Care Circular Shear Operator Name Role Phone Unknown, Provider Primary Care Provider [phone] Jinny Camacho DIRECTOR OF PROGRAMMING Primary Care Provider [phone] Encounter Details Date Type Department Care Team (Late st Contact Info) Description 11/04/2019 Lab Requisition [facility] Pathology & Laboratory Medicine - [address] [address] Outr Resulting Lab, Provider Social History Tobacco [...] [facility] Dermatology 3rd [address] [address] Nikita Kumari PA-C [address] [place] [address], [address] [place] [phone] documented as of this encounter Procedures Procedure Name Priority Date/Time Associated Diagnosis Comments ZZCOVID-19 TEST [facility] PCR Today 11/04/2019 20:46 EDT COVID-19 TESTING Routine 11/04/2019 20:4 6 EDT documented in this encounter Results * COVID-19 TEST [facility] PCR (11/04/2019 20:46 EDT) Swab ENTIRE NASOPHARYNX / Unknown 11/04/2019 20:46 EDT 11/05/2019 9:20 EDT Provider Outr Resulting Lab MICROBIOLOGY - GENERAL ORDERABLES Performing Organization Address City/[facility]/ZIP Co de Phone Number [facility] [address] [place] [address] * COVID-19 TESTING (11/04/2019 20:46 EDT) COVID-19 rt-PCR Result Negative Negative 11/05/2019 12:43 EDT [facility] Comment: This test [...] history, and epidemiological information. Performed on the PunchTabher Fusion instrument Performing Lab [place] [facility] 11/05/2019 12:43 EDT [facility] Swab 11/04/2019 20:4 6 EDT 11/05/2019 9:20 EDT Provider Outr Resulting Lab MICROBIOLOGY - GENERAL ORDERABLES Performing Organization Address City/[facility]/ZIP Co de Phone Number [facility] [address] [place] [address] documented in this encounter Visit Diagnoses Not on filedocumented in this encounter Care Teams Circular Shear Operator Relationship Specialty Start Date End Date Unknown, Provider, PCP - General 01/25/21 12/02/21 Jinny Camacho NP [address] [place] [address] PCP - General Family Medicine - Primary Care 12/03/21 documented as of this encounter
--- OUTSIDE RECORDS SUMMARY | 2023-09-18 22:39 | XMS_ITS | Encounter Summary ---
Author Organization [facility] Address [facility] [place] [address] Care Team Providers Care Painter Helper Sign Name Role Phone Jinny Camacho ZAINAB Primary Care Provider [phone] Encounter Details Date Type Department Care Team (Late st Contact Info) Description 05/31/2020 9:40 AM EDT TH Visit (TeleHealth) [place] [address] Roman Pizano MD [facility] [place] [address] Hyperthyroidism Social History Tobacco Use Types Packs/Day [...] check some repeat thyroid function tests at [facility]. I told her I would get [...] to get some blood test done in [place] took 30 minutes. documented in this encounter Plan of Treatment Not on file documented as of this encounter Visit Diagnoses Diagnosis Hyperthyroidism Thyrotoxicosis without mention of goiter or other cause, without mention of thyrotoxic crisis or storm documented in this encounter Care Teams Painter Helper Sign Relationship Specialty Start Date End Date Jinny Camacho APRN [address] [place] [address] PCP - General Internal Medicine 10/04/19 documented as of this encounter
--- OUTSIDE RECORDS SUMMARY | 2023-09-18 22:39 | XMS_ITS | Encounter Summary ---
Author Organization [facility] [place] [address] Care Team Providers Care Audiometrist Name Role Phone Jinny Camacho APRN Primary Care Provider [phone] Encounter Details Date Type Department Care Team [...] on filedocumented in this encounter Care Teams Audiometrist Relationship Specialty Start Date End Date Jinny Camacho APRN [address] [place] [address] PCP - General Internal Medicine 10/04/19 documented as of this encounter
--- OUTSIDE RECORDS SUMMARY | 2023-09-18 22:39 | XMS_ITS | Encounter Summary ---
Author Organization [facility] [place] [address] Care Team Providers Care Script Editor Name Role Phone Jinny Camacho APRN Primary Care Provider [phone] Encounter Details Date Type Department Care Team [...] on filedocumented in this encounter Care Teams Script Editor Relationship Specialty Start Date End Date Jinny Camacho APRN [address] [place] [address] PCP - General Internal Medicine 10/04/19 documented as of this encounter
--- OUTSIDE RECORDS SUMMARY | 2023-09-18 22:39 | XMS_ITS | Encounter Summary ---
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 Possible stent placement for Repair of lacrimal drainage system [02232 (CPT??)] Surgery Details Date/Time Status Location OR Service Patient Class Case Class Case Type Trauma Case? 12/10/21 1115 Posted [facility] OR FOR 04 Ophthalmology [...] Elias (if unsure of appointment time, call [phone]) - If you have decreasing vision, uncontrollable pain, or significant bleeding call [phone] Elias documented in this encounter Medications [...] 20 mEq by mouth 2 times daily. odgzsdjk-ssfmjjjec-wzue methasone (MAXITROL) ophthalmic ointment Apply to all wounds 3 times daily for 10 days 3.5 g 1 12/10/2021 05/16/2022 documented as of this encounter Ordered Prescriptions Prescription Sig Dispensed Refills Start Date End Da te zpwdobsq-tygywjalh-wwugcxd hasone (MAXITROL) ophthalmic ointment Apply to all wounds 3 times daily for 10 days 3.5 g 1 12/10/2021 05/16/2022 ymkmjtyf-eticuvlue-hzykagf hasone (MAXITROL) ophthalmic ointment Apply to all wounds 3 times daily for 10 days 3.5 g 1 12/10/2021 12/10/2021 documented in this encounter Discharge Disposition Disposition Code Departure Means Destination Home or Self Prison documented in this encounter H&P Notes * [...] Elias MD 12/10/2021 11:49 Source Note - AUTO BRAKE TECHNICIAN, SCAN 2 - 12/09/2021 16:14 EDT documented [...] diagnosis: same ?? Surgeon: Whitley Elias MD Supervisory Training Specialist: Naz Mcneill ?? Anesthesia: General anesthesia with [...] - 12/10/2021 1600 EDT Date: 12/10/2021 Location: [facility] OR Name: Caitlin Marte, [...] thickness (Active) [REMOVED] Non-Surgical Airway (Removed) Staff: Motor Equipment Commanding Officer: Obdulia Zhu RN; Arun Sherman RN Scrub [...] - 12/10/2021 1439 EDT Date: 12/10/2021 [facility] Name: Caitlin Marte, : [...] 12/10/21 Incision Nose Full thickness (Active) Staff: Motor Equipment Commanding Officer: Obdulia Zhu RN; Arun Sherman RN Scrub [...] Visit [facility] Dermatology 3rd [address] [address] Nikita Kumari PA-C [address] [place] [address], [address] [place] [phone] documented as of this encounter Procedures Procedure [...] EDT) 12/12/2021 11:4 3 EDT Scan 2 Groundhand PROCEDURE/MINOR CHIQUITA GICAL ORDERABLES documented in this [...] New Bag 12/10/2021 12:02 EDT 25 mL/hr kwgihsjk-whugridis-aagufjlqkxuee (MAXITROL) ophthalmic ointment PRN, Starting on Thu12/10/21 at 1342, Until Thu12/10/21 at 1442, Intraprocedure Given 12/10/2021 13:42 EDT 3,500 mg oxymetazoline (AFRIN) 0.05 % nasal spray PRN, Starting on Thu12/10/21 at 1341, Until Thu12/10/21 at 1442, Routine, Intraprocedure Given 12/10/2021 13:41 EDT 1 [place] Other sodium chloride 0.9 % irrigation PRN, Starting on Thu12/10/21 at 1341, Until Thu12/10/21 at 1442, Routine, Intraprocedure Given 12/10/2021 13:41 EDT 500 mL documented in this encounter Discontinued Medications Medication Sig Discontinue Reason Start Date End Da te liydkbwu-oxfnytzrn-opt amethasone (MAXITROL) ophthalmic ointment Apply to all [...] (Given - Provid er: Whitley Elias MD) liiryrfk-ilfkkizgz-bwlleybzjzwjj (MAXITROL) ophthalmic ointment (CANCELED) PRN, Starting on [...] 12/10/2021 documented in this encounter Care Teams Fish Checker Relationship Specialty Start Date End Date Jinny Camacho NP [address] [place] [address] PCP - General Family Medicine - Primary Care 12/03/21 documented as of this encounter
--- OUTSIDE RECORDS SUMMARY | 2023-09-18 22:39 | XMS_ITS | Encounter Summary ---
Author Organization [facility] Address [facility] [place] [address] Care Team Providers Care Used Car Sales Manager Name Role Phone Jinny Camacho ZAINAB Primary Care Provider [phone] Encounter Details Date Type Department Care Team (Late st Contact Info) Description 10/12/2019 Telephone [place] [phone] Jeremías Shirley RN Social History Tobacco Use [...] She was also feeling tired out. Her COMPRESSOR REPAIRER decreased the atenolol to half a tab AM and PM. She started that yesterday and is still feeling tired. She also reports her COMPRESSOR REPAIRER did an EKG which they were going [...] on filedocumented in this encounter Care Teams Used Car Sales Manager Relationship Specialty Start Date End Date Jinny Camacho APRN [address] [facility] [place] [address] PCP - General Internal Medicine 10/04/19 documented as of this encounter
--- OUTSIDE RECORDS SUMMARY | 2023-09-18 22:39 | XMS_ITS | Encounter Summary ---
Author Organization [facility] Address [facility] [place] [address] Care Team Providers Care Preschool Program Director Name Role Phone Jinny Camacho BREAST BUFFER Primary Care Provider [phone] Encounter Details Date Type Department Care Team (Late st Contact Info) Description 05/07/2021 10:30 AM EDT TH Visit (TeleHealth) [place] [address] Katie Acevedo BREAST BUFFER [facility] [place] [address] Hyperthyroidism Social History Tobacco Use Types Packs/Day [...] followed by Dr. Pizano until his recent half-way. Methimazole reduced to 10mg daily in July 2020 at her last visit. She has continued to take 10mg methimazole a day. Tookher last dose this morning, has not yet updated her labs. New jeanette Lisa in [place] Plan from previous visit note:Harinder 08/03/20 In [...] lab request to her local hospital in [facility]. ?? When I get the results [...] and available tests, [facility] the [facility], and in [...] storm documented in this encounter Care Teams Preschool Program Director Relationship Specialty Start Date End Date Jinny Camacho APRN [address] [place] [address] PCP - General Internal Medicine 10/04/19 documented as of this encounter
--- OUTSIDE RECORDS SUMMARY | 2023-09-18 22:39 | XMS_ITS | Encounter Summary ---
Author Organization [facility] [place] [address] Care Team Providers Care Nutrition Technician Name Role Phone Jinny Camacho Wagner LAMB Primary Care Provider [phone] Reason for Referral * Diagnostic Test (Routine) - Closed Specialty Diagnoses / Procedures Referred By Zoya juarez Referred To Contact Diagnoses Bilateral carotid artery stenosis Procedures Carotid Duplex, Bilateral Anjali Martino APRN [facility] [place] [address] [facility] Vascular Lab [address] [place] [address] Referral ID Status Reason Start Date Expiration Date V isits Requested Visits Authorized [id number] Closed Specialty Service Requested 01/24/2022 01/24/2023 1 1 Encounter Details Date Type Department Care Team (Late st Contact Info) Description 01/24/2022 Orders [place] [phone] Anjali Martino APRN [facility] [place] [address] Bilateral carotid artery stenosis Social History Tobacco [...] Text Report Department: Vascular Surgery Lab Patient: [id number] (CAITLIN MARTE) CPT: [id number] Referring Physician: ANJALI MARTINO, KNITTING MACHINE OPERATOR HELPER ?? Indications: ??Carotid stenosis at [facility], ? [...] infarction documented in this encounter Care Teams Nutrition Technician Relationship Specialty Start Date End Date Jinny Camacho APRN [address] [place] [address] PCP - General Internal Medicine 10/04/19 documented as of this encounter
--- OUTSIDE RECORDS SUMMARY | 2023-09-18 22:39 | XMS_ITS | Encounter Summary ---
Author Organization [facility] Address [facility] [place] [address] Care Team Providers Care Microbiology Lab Manager Name Role Phone Jinny Camacho APRN Primary Care Provider [phone] Encounter Details Date Type Department Care Team (Late st Contact Info) Description 05/31/2020 Orders [place] [address] [facility] [place] [address] Hyperthyroidism Social History Tobacco Use Types Packs/Day [...] storm documented in this encounter Care Teams Microbiology Lab Manager Relationship Specialty Start Date End Date Jinny Camacho APRN [address] [place] [address] PCP - General Internal Medicine 10/04/19 documented as of this encounter
--- OUTSIDE RECORDS SUMMARY | 2023-09-18 22:39 | XMS_ITS | Encounter Summary ---
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 WEIGHT LOSS, ANXIETY, TSH <0.01, FT4 2.71 Jinny Camacho, ZAINAB [address] [place] [address] [facility] Endocrinology [address] [place] [address] Referral ID Status Reason Start Date Expiration Date V isits Requested Visits Authorized [id number] Closed Consult, [facility] PCP Updated and/or Approved 10/04/2019 10/03/2020 1 1 Encounter Details Date Type Department Care Team (Late st Contact Info) Description 10/06/2019 2:40 PM EDT Office [place] [address] Roman Pizano MD [facility] [place] [address] Hyperthyroidism Social History Tobacco Use [...] 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 Is not had 2 [...] T3, Total 272(H) 75 - 170 ng/dL [facility] Blood specimen (specimen) 10/06/2019 3:25 PM EDT 10/06/2019 3:39 PM EDT Narrative Resulting Agency Comment Spec In Lab Roman Pizano MD CHEMISTRY ORDERABLES Performing Organization Address [facility] Co de Phone Number [facility] [place] [place] [address] * (ABNORMAL) T4, free (10/06/2019 3:25 PM EDT) Free T4 2.80(H) 0.93 - 1.70 ng/dL [facility] Blood specimen (specimen) 10/06/2019 3:25 PM EDT 10/06/2019 3:39 PM EDT Narrative Resulting Agency Comment Spec In Lab Roman Pizano MD CHEMISTRY ORDERABLES Performing Organization Address [facility]/ZIP Co de Phone Number [facility] [place] [place] [address] * (ABNORMAL) Thyroid Stimulating Immunoglobulins (10/06/2019 3:25 PM EDT) TSI 7.56(H) <=0.55 IU/L [facility] Blood specimen (specimen) 10/06/2019 3:25 PM EDT 10/07/2019 7:46 AM EDT Narrative Resulting Agency Comment Spec In Lab Roman Pizano MD IMMUNOLOGY ORDERABLE S [facility] [place] [place] [address] documented in this encounter Visit Diagnoses Diagnosis Hyperthyroidism Thyrotoxicosis without mention of goiter or other cause, without mention of thyrotoxic crisis or storm documented in this encounter Care Teams Residential Housekeeper Relationship Specialty Start Date End Date Jinny Camacho, DYER ASSISTANT [address] [place] [address] PCP - General Internal Medicine 10/04/19 documented as of this encounter
--- OUTSIDE RECORDS SUMMARY | 2023-09-18 22:39 | XMS_ITS | Encounter Summary ---
Author Organization [facility] Address [address] [place] [address] Care Team Providers Care Pumping Station Engineer Name Role Phone Unknown, Provider Primary Care Provider Reason for Visit * Reason Onset Date Comments Appointment Related 07/19/2021 Encounter Details Date Type Department Care Team (Late st Contact Info) Description 07/19/2021 Telephone [facility] Ophthalmology - [address] [address] Whitley Elias MD [address] [place] [address], [address] [place] [phone] Appointment Related Social History Tobacco Use Types [...] Info) Description 10/27/2023 12:50 EDT Office Visit [facility] Dermatology 3rd Floor [facility] [address] [place], [place] [address] Nikita Kumari PA-C [address] [facility], [address] [place] [phone] documented as of this encounter Visit Diagnoses Not on filedocumented in this encounter Care Teams Pumping Station Engineer Relationship Specialty Start Date End Date Unknown, Provider, PCP - General 01/25/21 12/02/21 documented as of this encounter
--- OUTSIDE RECORDS SUMMARY | 2023-09-18 22:39 | XMS_ITS | Encounter Summary ---
Author Organization [facility] Address [address] [place] [address] Care Team Providers Care Irrigation Equipment Remover Name Role Phone Unknown, Provider Primary Care Provider Reason for Visit * Reason Comments Mohs Consult medial canthus- Dr. Elias biopsied on 09/24/2021 Encounter Details Date Type Department Care Team (Late st Contact Info) Description 10/03/2021 10:30 EDT Initial consult [facility] Dermatology 5th [address] [address] Dodie Patricia MD [address] [facility], [address] [place] [address] Neoplasm of uncertain behavior of [...] take place on the 5th floor of [place] [address] in the [facility]. If you would like, bring your own music (iPod with headphones, etc) for listening during the procedure. For additional information and a video on Mohs surgery please visit the following website from the [employer] please visit the following website from the [employer]: [email or web address].[email or web address].org Here's an additional video from the [place] [employer]: www.asds.net/Ytde-Wvricuv-jef-Skin-Cancer Consider Eucerin redness relief or Clinique Redness [...] discomfort. Tylenol, taken as directed by the research environmental scientist, will help relieve pain. If Tylenol does [...] choose to look at your results in [employer] prior to our office contacting you, that is your right and choice. Our office policy is to have your provider or the provider???s community relations assistant contact you with your results and [...] not call the office or send a [employer] message asking to discuss them. Providers are seeing patients during the day and cannot answer calls during clinic time or off hours/weekends. Unless it is an emergency, the financial institution vice president provider will not review biopsy and/ or lab results. Thank you for entrusting us with your care. [facility]- Dermatology documented in this encounter Progress Notes * Alena Sims MD - 10/03/2021 1030 EDT Images from the original note were not included. MOHS EVALUATION NOTE Chief Complaint Patient presents with ??? Mohs Consult medial [facility]- Dr. Elias biopsied on 09/24/2021 Subjective: [...] PATIENT INFORMATION: Caitlin Marte : MRN: [id number] SURGEON: Dodie Patricia MD CRAYON SORTING MACHINE FEEDER: Alena Sims MD The indication, risks, benefits [...] Sims MD, LACEY, MS PGY-3 Dermatology Pager [phone] 10/04/21 10:15 Attestation statement: I performed or was present during the nick or critical portions of the visit and participated in the management of the patient. I agree with the findings and plan of care documented in the resident's/fellow's note. The resident performed the procedure under my direct supervision and with my assistance.. Dodie Patricia MD Dermatology & Mohs Surgery bag making machine operator, Dermatology Division [facility] 10/04/2021 10:13 documented in this encounter [...] Info) Description 10/27/2023 12:50 EDT Office Visit [facility] Dermatology 3rd Floor [address] [address] Nikita Kumari, DANDRE [address] [place] [address], [address] [place] [address] documented as of this encounter [...] explore management options, if applicable. 10/05/2021 10:33 [facility] Final Diagnosis A. SKIN OF NASAL SIDEWALL, RIGHT, SHAVE BIOPSY: - Melanocytic nevus, predominantly intradermal type. See comment. 10/05/2021 10:33 [facility] Diagnosis Comment Multiple levels of the biopsy have been reviewed. Features of intradermal nevus are best appreciated on deeper sections. Basal cell carcinoma is not identified. 10/05/2021 10:33 [facility] Attestation By the signature below, the attending physician certifies that they have 1) personally conducted a gross and/or microscopic examination of the described specimen(s), and/or personally interpreted the results of laboratory testing of the described specimen(s), and 2) personally rendered or confirmed the above diagnosis. 10/05/2021 10:33 [facility] at 1033 Clinical History Right nasal sidewall, favor BCC; clinical diagnosis code: D48.5 10/05/2021 10:33 [facility] Gross Description A. Received in formalin labelled with proper patient identification (initials W, P) and right nasal sidewall is a 0.5 x 0.3 x 0.1 cm ovoid shave pearly white skin. The margin is inked. The specimen is submitted intact in A1. DAVID SALVADOR(ASCP) 10/03/2021 15:53 10/05/2021 10:33 [facility] Performing Lab [facility] 10/05/2021 10:33 [facility] Scanned Images 10/05/2021 10:33 [facility] Tissue TISSUE SPECIMEN FROM SKIN / Unknown Collection, Other / Unknown 10/03/2021 11:16 EDT 10/03/2021 13:26 EDT Dodie Patricia MD PATHOLOGY OLU RABAGO [facility] [address] [place] [address] documented in this encounter Visit Diagnoses Diagnosis Neoplasm of uncertain behavior of skin- Primary Basal cell carcinoma (BCC) of medial canthus of right eye Basal cell carcinoma (BCC) of right medial cheek documented in this encounter Care Teams Irrigation Equipment Remover Relationship Specialty Start Date End Date Unknown, Provider, PCP - General 01/25/21 12/02/21 documented as of this encounter
--- OUTSIDE RECORDS SUMMARY | 2023-09-18 22:39 | XMS_ITS | Encounter Summary ---
Author Organization [facility] Address [address] [place] [address] Care Team Providers Care Associate Media Director Name Role Phone Unknown, Provider Primary Care Provider [phone] Jinny Camacho COMPRESSOR OPERATOR ADJUSTER Primary Care Provider [phone] Encounter Details Date Type Department Care Team (Late st Contact Info) Description 06/06/2020 Lab Requisition [facility] Pathology & Laboratory Medicine - [address] [address] Outr Resulting Lab, Provider Social History Tobacco [...] Info) Description 10/27/2023 12:50 EDT Office Visit [facility] Dermatology 3rd Floor [address] [address] Nikita Kumari PA-C [address] [facility] [address] [place] [phone] documented as of this encounter Procedures Procedure Name Priority Date/Time Associated Diagnosis Comments T3, TOTAL Routine 06/06/2020 10:27 EDT documented in this encounter Results * T3, TOTAL (06/06/2020 10:27 EDT) T3, Total 131 97 - 169 ng/dL 06/06/2020 17:09 EDT [facility] Blood VENOUS BLOOD / Unknown 06/06/2020 10:27 EDT 06/06/2020 16:22 EDT Provider Outr Resulting Lab CHEMISTRY & BLOOD GAS ORDERABLES [facility] [address] [place] [address] documented in this encounter Visit Diagnoses Not on filedocumented in this encounter Care Teams Associate Media Director Relationship Specialty Start Date End Date Unknown, Provider, PCP - General 01/25/21 12/02/21 Jinny Camacho NP [address] [place] [address] PCP - General Family Medicine - Primary Care 12/03/21 documented as of this encounter
--- OUTSIDE RECORDS SUMMARY | 2023-09-18 22:39 | XMS_ITS | Encounter Summary ---
Author Organization [facility] Address [address] [place] [address] Care Team Providers Care Motion Pictures Cartoonist Name Role Phone Unknown, Provider Primary Care Provider [phone] Jinny Camacho FRUIT THINNER MACHINE OPERATOR Primary Care Provider [phone] Encounter Details Date Type Department Care Team (Late st Contact Info) Description 11/07/2019 Lab Requisition [facility] Pathology & Laboratory Medicine - [address] [address] Outr Resulting Lab, Provider Social History Tobacco [...] [facility] Dermatology 3rd Floor [address] [address] Nikita Kumari PA-C [address] [place] [address], [address] [place] [phone] documented as of this encounter Procedures Procedure Name Priority Date/Time Associated Diagnosis Comments T3, TOTAL Routine 11/07/2019 7:10 EDT documented in this encounter Results * T3, TOTAL (11/07/2019 7:10 EDT) T3, Total 130 97 - 169 ng/dL 11/07/2019 22:12 EDT [facility] Blood VENOUS BLOOD / Unknown 11/07/2019 7:10 EDT 11/07/2019 21:30 EDT Provider Outr Resulting Lab CHEMISTRY & BLOOD GAS ORDERABLES [facility] [address] [place] [address] documented in this encounter Visit Diagnoses Not on filedocumented in this encounter Care Teams Motion Pictures Cartoonist Relationship Specialty Start Date End Date Unknown, Provider, PCP - General 01/25/21 12/02/21 Jinny Camacho, FRUIT THINNER MACHINE OPERATOR [address] [place] [address] PCP - General Family Medicine - Primary Care 12/03/21 documented as of this encounter
--- OUTSIDE RECORDS SUMMARY | 2023-09-18 22:39 | XMS_ITS | Encounter Summary ---
Author Organization [facility] Address [facility] [place] [address] Care Team Providers Care Turnstile Attendant Name Role Phone Jinny Camacho APRN Primary Care Provider [phone] Encounter Details Date Type Department Care Team (Late st Contact Info) Description 01/21/2023 Telephone [place] [phone] Gurdeep Duenas MD [facility] [place] [address] Social History Tobacco Use Types Packs/Day Years [...] adjust dose of Methimazole. Gurdeep Duenas MD Physician General Internal Medicinebusiness services intern Endocrinology Section [facility] documented in this encounter Plan of Treatment Not on file documented as of this encounter Visit Diagnoses Not on filedocumented in this encounter Care Teams Turnstile Attendant Relationship Specialty Start Date End Date Jinny Camacho APRN [address] [place] [address] PCP - General Internal Medicine 10/04/19 documented as of this encounter
--- OUTSIDE RECORDS SUMMARY | 2023-09-18 22:39 | XMS_ITS | Encounter Summary ---
Author Organization [facility] Address [facility] [place] [address] Care Team Providers Care Final Armature Tester Name Role Phone Jinny Camacho APRN Primary Care Provider [phone] Encounter Details Date Type Department Care Team (Late st Contact Info) Description 05/02/2021 Orders [place] [address] Roman Pizano MD [facility] [place] [address] Hyperthyroidism Social History Tobacco Use Types Packs/Day [...] storm documented in this encounter Care Teams Final Armature Tester Relationship Specialty Start Date End Date Jinny Camacho APRN [address] [place] [address] PCP - General Internal Medicine 10/04/19 documented as of this encounter
--- OUTSIDE RECORDS SUMMARY | 2023-09-18 22:39 | XMS_ITS | Encounter Summary ---
Author Organization [facility] Address [address] [place] [address] Care Team Providers Care Mushroom Cutter Name Role Phone Unknown, Provider Primary Care Provider Encounter Details Date Type Department Care Team (Late st Contact Info) Description 12/02/2021 Orders Only [facility] Ophthalmology - [address] [address] Whitley Elias MD [address] [place] [address] Basal cell carcinoma (BCC) of right [...] [facility] Dermatology 3rd Floor [address] [id number] Nikita Kumari PA-C [address] [place] [address] documented as of this encounter Visit Diagnoses Diagnosis Basal cell carcinoma (BCC) of right upper eyelid- Primary documented in this encounter Orders Case Request Count Last Ordered Date First Orde red Date CASE REQUEST OPERATING ROOM 1 12/02/2021 documented in this encounter Care Teams Mushroom Cutter Relationship Specialty Start Date End Date Unknown, Provider, PCP - General 01/25/21 12/02/21 documented as of this encounter
--- OUTSIDE RECORDS SUMMARY | 2023-09-18 22:39 | XMS_ITS | Encounter Summary ---
Author Organization [facility] Address [facility] [place] [address] Care Team Providers Care Family Practice Physician Assistant Name Role Phone Jinny Camacho APRN Primary Care Provider [phone] Encounter Details Date Type Department Care Team (Late st Contact Info) Description 10/12/2019 Orders [place] [address] Roman Pizano MD [facility] [place] [address] Social History Tobacco Use Types Packs/Day Years [...] on filedocumented in this encounter Care Teams Family Practice Physician Assistant Relationship Specialty Start Date End Date Jinny Camacho APRN [address] [place] [address] PCP - General Internal Medicine 10/04/19 documented as of this encounter
--- OUTSIDE RECORDS SUMMARY | 2023-09-18 22:39 | XMS_ITS | Encounter Summary ---
Author Organization [facility] Address [address] [place] [address] Care Team Providers Care Senior Advisory Name Role Phone Unknown, Provider Primary Care Provider Reason for Visit * Reason Comments Procedure Encounter Details Date Type Department Care Team (Late st Contact Info) Description 09/24/2021 14:45 EDT Office Visit [facility] Ophthalmology - [address] [address] Whitley Elias MD [address] [place] [address], [address] [place] [phone] Social History Tobacco Use Types Packs/Day Years [...] Description 10/27/2023 12:50 EDT Office Visit [facility] Dermatology 3rd Floor [facility] [address], [place] [phone] Nikita Kumari PA-C 111 [facility], [facility], [facility] [address] [place] [address] documented as of this encounter [...] - RIGHT EYE (09/27/2021 17:57 EDT) Narrative [facility] POINT OF CARE - 09/27/2021 17:57 [...] ??Return precautions were discussed. Whitley Elias MD [facility] PROCEDU RES [facility] POINT OF CARE * SURGICAL PATHOLOGY (09/24/2021 15:59 EDT) Note to Patient The following pathology results have been interpreted by your pathologist and may be available to you before your health provider has had the opportunity to review them. Please allow time for your provider to receive these results and explore management options, if applicable. 09/26/2021 14:12 [facility] Final Diagnosis A. SKIN OF MEDIAL CANTHUS, RIGHT, BIOPSY: - Basal cell carcinoma, nodular type. - Basal cell carcinoma present at peripheral and deep tissue edges. B. SKIN OF CHEEK, RIGHT, BIOPSY: - Basal cell carcinoma, nodular type. - Basal cell carcinoma present peripheral and deep tissue edges. 09/26/2021 14:12 [facility] Attestation By the signature below, the attending physician certifies that they have 1) personally conducted a gross and/or microscopic examination of the described specimen(s), and/or personally interpreted the results of laboratory testing of the described specimen(s), and 2) personally rendered or confirmed the above diagnosis. 09/26/2021 14:12 [facility] at 1412 Microscopic Description Irregularly [...] of the islands and stroma. 09/26/2021 14:12 [facility] Clinical History Medial canthus lesion suspucius for malignancy, cheek lesion suspicious for malignancy; clinical diagnosis code: D48.5 09/26/2021 14:12 EDT [facility] Gross Description A. [...] inked and submitted entirely in B1. DAVID FLANNERY([facility]) 09/25/2021 6:39 09/26/2021 14:12 EDT [facility] Performing Lab [facility] HOSPITAL LAB 09/26/2021 14:12 T [facility] Scanned Images 09/26/2021 14:12 T [facility] Tissue TISSUE SPECIMEN FROM SKIN / Unknown Collection, Other / Unknown 09/24/2021 15:59 EDT 09/24/2021 17:14 EDT Tissue specimen (specimen) SPECIMEN FROM SKIN / Unknown 09/24/2021 15:59 EDT 09/24/2021 17:14 EDT Whitley Elias MD PATHOLOGY ORDERABLES [facility] [address] [place] [address] documented in this encounter Visit Diagnoses Diagnosis Neoplasm of uncertain behavior of skin of eyelid- Primary Neoplasm of uncertain behavior of skin documented in this encounter Care Teams Senior Advisory Relationship Specialty Start Date End Date Unknown, Provider, PCP - General 01/25/21 12/02/21 documented as of this encounter
--- OUTSIDE RECORDS SUMMARY | 2023-09-18 22:39 | XMS_ITS | Encounter Summary ---
Author Organization [facility] Address [address] [place] [address] Care Team Providers Care Automatic Beading Lathe Operator Name Role Phone Unknown, Provider Primary Care Provider Reason for Visit * Reason Comments Eye Problem * Consult, Test and Treat (Routine) - Receiving Office to Obtain Authorization Specialty Diagnoses / Procedures Referred By Zoya juarez Referred To Contact Ophthalmology Diagnoses Other disorders of lacrimal system Linwood Becker MD [address] [place] [address] Whitley Elias MD [address] [place] [phone] Referral ID Status Reason Start Date Expiration Date Visits Requested Visits Authorized [id number] Receiving Office to Obtain Authorization 1 1 Encounter Details Date Type Department Care Team (Late st Contact Info) Description 06/28/2021 10:15 EDT Office Visit [facility] Ophthalmology - [address] [phone] Whitley Elias MD [address] [place] [phone] Social History Tobacco Use Types Packs/Day [...] Right eye medial canthal nodular lesion per [facility]. Bump nasally inner corner [...] Right eye medial canthal nodular lesion per [facility]. Bump nasally inner corner [...] Thyroid problems Hematologic: NL Immunologic: Drug Allergy Paper Cone Machine Tender: Exposures: Other: Attestation: Allergies include: Patient [...] my own HPI and have reviewed the [facility]'s ROS as well. I personally completed [...] Info) Description 10/27/2023 12:50 EDT Office Visit [facility] Dermatology 3rd Floor [facility] [address] [place] [address] Nikita Kumari PA-C 111 [facility], [facility], Level [address] [place] [phone] documented as of this encounter Visit Diagnoses [...] reactive Round and rusty ctive Care Teams Automatic Beading Lathe Operator Relationship Specialty Start Date End Date Unknown, Provider, PCP - General 01/25/21 12/02/21 documented as of this encounter
--- OUTSIDE RECORDS SUMMARY | 2023-09-18 22:39 | XMS_ITS | Encounter Summary ---
Author Organization [facility] Address [facility] [place] [address] Care Team Providers Care Boat Canvas Maker Installer Name Role Phone Jinny Camacho APRN Primary Care Provider [phone] Encounter Details Date Type Department Care Team (Late st Contact Info) Description 11/12/2022 Orders [place] [address] Gurdeep Duenas MD [facility] [place] [address] Graves disease Social History Tobacco Use Types [...] documented in this encounter Care Teams Boat Canvas Maker Installer Relationship Specialty Start Date End Date Jinny Camacho APRN [address] [place] [address] PCP - General Internal Medicine 10/04/19 documented as of this encounter
--- OUTSIDE RECORDS SUMMARY | 2023-09-18 22:39 | XMS_ITS | Encounter Summary ---
Author Organization [facility] [place] [address] Care Team Providers Care Warp Tying Machine Tender Name Role Phone Jinny Camacho APRN Primary Care Provider [phone] Encounter Details Date Type Department Care Team (Late st Contact Info) Description 08/13/2022 Telephone [place] [address] Petros Schmidt, [facility] [place] [address] Social History Tobacco Use Types Packs/Day Years [...] on filedocumented in this encounter Care Teams Warp Tying Machine Tender Relationship Specialty Start Date End Date Jinny Camacho APRN [address] [place] [address] PCP - General Internal Medicine 10/04/19 documented as of this encounter
--- OUTSIDE RECORDS SUMMARY | 2023-09-18 22:39 | XMS_ITS | Encounter Summary ---
Author Organization [facility] Address [address] [place] [address] Care Team Providers Care Manager [place] Name Role Phone JaniceJinny ASSISTANT AUDITOR Primary Care Provider Reason for Visit * Auth/Cert Specialty Diagnoses / Procedures [facility] Referred To Contact Diagnoses Basal cell carcinoma (BCC) of right upper eyelid Basal cell carcinoma (BCC) of right upper eyelid [C44.1121] Procedures ID ADJ TISS XFER LID,NOS,EAR <10 SQCM ID REPAIR TEAR DUCTS Repair of RIGHT eyelid/Medial Carthus MOHS defect with tissue rearrangement. Possible stent placement for Repair of lacrimal drainage system PLASTIC REPAIR, CANALICULI Referral ID Status Reason Start Date Expiration Date Visits Re quested Visits Authorized [id number] 12/10/2021 02/22/2022 1 1 Encounter Details Date Type Department Care Team (Late st Contact Info) Description 12/10/2021 12:09 EDT Anesthesia Event [facility] Operating Room [address] [place], [place] [id number] Roberto Montilla MD [address] [address] Ramirez Cotto AA [address] [address] Anesthesia Record Procedure Summary Procedure [...] - 12/10/2021 1451 EDT Patient: Caitlin Edward [facility] Vital signs were reviewed with the recovery nurse. [facility] Value Taken Time BP [...] during procedure: OR Anesthesiologist: Roberto Montilla MD Resident/CAR WRECKER: Ramirez Cotto AA Performed: anesthesiologist and resident/CAR WRECKER/AA Indications and Patient Condition Indications for airway [...] Visit [facility] Dermatology [address] [facility] [address] [place] [address] Nikita Kumari PA-C 111 [facility], [facility], Level [address] [place] [address] documented as of this encounter Procedures Procedure Name Priority Date/Time Associated Diagnosis Comments ANESTHESIA INTUBATION Routine 12/10/2021 12:19 EDT documented in this encounter Results * ID AN ELECTIVE ENDOTRACHEAL AIRWAY (12/10/2021 12:19 EDT) Narrative Ramirez Cotto AA - 12/10/2021 12:19 EDT Ramirez Cotto AA ? 12/10/2021 12:35 Airway Date/Time: 12/10/2021 12:19 Urgency: elective Airway not difficult General Information and Staff Patient location during procedure: [place] Anesthesiologist: Roberto Montilla MD Resident/CAR WRECKER: Ramirez Cotto AA Performed: anesthesiologist and resident/CAR WRECKER/AA Indications and Patient Condition Indications for airway [...] mg documented in this encounter Care Teams Manager China Relationship Specialty Start Date End Date Jinny Camacho NP [address] [place] [address] PCP - General Family Medicine - Primary Care 12/03/21 documented as of this encounter
--- OUTSIDE RECORDS SUMMARY | 2023-09-18 22:39 | XMS_ITS | Encounter Summary ---
Author Organization [facility] [place] [address] Care Team Providers Care News Writer Name Role Phone Jinny Camacho APRN Primary Care Provider [phone] Encounter Details Date Type Department Care Team (Late st Contact Info) Description 10/07/2019 Tele[place] [phone] Mariano Hamm Social History Tobacco Use Types [...] on filedocumented in this encounter Care Teams News Writer Relationship Specialty Start Date End Date Jinny Camacho APRN [address] [place] [address] PCP - General Internal Medicine 10/04/19 documented as of this encounter
--- OUTSIDE RECORDS SUMMARY | 2023-09-18 22:39 | XMS_ITS | Encounter Summary ---
Author Organization [place] [address] Care Team Providers Care Health Safety Engineer Name Role Phone Jinny Camacho APRN Primary Care Provider [phone] Encounter Details Date Type Department Care Team (Late st Contact Info) Description 05/02/2021 Tele[place] [phone] Rachel Vallecillo Social History Tobacco Use Types [...] on filedocumented in this encounter Care Teams Health Safety Engineer Relationship Specialty Start Date End Date Jinny Camacho APRN [address] [place] [address] PCP - General Internal Medicine 10/04/19 documented as of this encounter
--- OUTSIDE RECORDS SUMMARY | 2023-09-18 22:39 | XMS_ITS | Encounter Summary ---
Author Organization [facility] Address [facility] [place] [address] Care Team Providers Care Office Executive Name Role Phone Jinny Camacho ZAINAB Primary Care Provider [phone] Encounter Details Date Type Department Care Team (Late st Contact Info) Description 09/09/2022 2:00 PM EDT Office [place] [address] Gurdeep Duenas MD [facility] [place] [address] Graves disease; Graves' orbitopathy Social History Tobacco [...] Duenas MD - 09/09/2022 2:00 PM EDT [facility] Endocrinology Clinic Follow up Patient Chief complaint: [...] orders and on documentation. Gurdeep Duenas MD Needle Loom Operator Helperetymology teacher Endocrinology Section [facility] documented in this encounter Plan [...] 2:49 PM EDT) Neutrophils % 45.4 % [facility] Neutr Abs (ANC) 3.86 1.70 - 6.10 x10(3)/mc L [facility] Lymphocytes % 41.3 % [facility] Lymphocytes Abs 3.5(H) 0.9 - 3.2 x10(3)/mc L [facility] Monocytes % 11.1 % [facility] Monocyte Abs 0.9 0.3 - 0.9 x10(3)/mc L [facility] Eosinophils % 1.5 % [facility] Eosinophils Abs 0.1 0.0 - 0.4 x10(3)/mc L [facility] Basophils % 0.6 % [facility] Basophils Abs 0.0 0.0 - 0.1 x10(3)/mc L [facility] Immature Gran % 0.10 % [facility] Comment: Immature granulocytes(IG's)percentage and absolute count will include metamyelocytes, myelocytes, and promyelocytes. Blood smears from CBCs yielding IG's will be scanned manually for concordance. If this scan disagrees with the automated IG or if promyelocytes are noted, a manual differential will be performed. Tg Gran Abs 0.01 0.00 - 0.04 x10(3)/ L [facility] Blood 09/09/2022 2:49 PM EDT 09/09/2022 3:08 PM EDT Narrative Resulting Agency Comment Spec In Lab Gurdeep Duenas MD HEMATOLOGY ORDERABLE S [facility] [place] [address] * Hemogram (09/09/2022 2:49 PM EDT) WBC 8.5 4.0 - 9.5 x10(3)/[facility] RBC 4.36 4.00 - 5.21 x10(6)/[facility] Hemoglobin 12.5 11.7 - 15.5 g/dL [facility] Hematocrit 38.7 35.7 - 45.8 % [facility] MCV 88.8 82.6 - 94.4 [facility] MCH 28.7 27.1 - 32.0 pg [facility] MCHC 32.3 31.7 - 35.0 g/dL [facility] Platelets 216 145 - 357 x10(3)/[facility] RDWSD 44.0 37.0 - 46.0 [facility] RDWCV 13.4 11.5 - 14.1 % [facility] MPV 9.7 7.6 - 12.9 [facility] nRBC % Auto 0.0 % [facility] nRBC Abs Auto 0.000 0.000 - 0.000 x10(3)/[facility] Blood 09/09/2022 2:49 PM EDT 09/09/2022 3:08 PM EDT Narrative Resulting Agency Comment Spec In Lab Gurdeep Duenas MD HEMATOLOGY ORDERABLE S Performing Organization Address [facility] Co de Phone Number [facility] [place] [address] * (ABNORMAL) Thyroid Stimulating Immunoglobulins (09/09/2022 2:49 PM EDT) TSI >40.00(H) <=0.55 IU/L [facility] Blood 09/09/2022 2:49 PM EDT 09/10/2022 7:20 AM EDT Narrative Resulting Agency Comment Spec In Lab Gurdeep Duenas MD IMMUNOLOGY ORDERABLE S Performing Organization Address [facility] Co de Phone Number [facility] [place] [address] * T3 Total (09/09/2022 2:49 PM EDT) T3, Total 153 80 - 200 ng/dL [facility] Blood 09/09/2022 2:49 PM EDT 09/09/2022 3:08 PM EDT Narrative Resulting Agency Comment Spec In Lab Gurdeep Duenas MD CHEMISTRY ORDERABLES Performing Organization Address [facility] Co de Phone Number [facility] [place] [address] * T4, free (09/09/2022 2:49 PM EDT) Free T4 0.97 0.93 - 1.70 ng/dL [facility] Comment: Reference Interval (ng/dL): Females: ??First Trimester: 0.97-1.68 ??Second Trimester: 0.77-1.51 ??Third Trimester: 0.77-1.49 Blood 09/09/2022 2:49 PM EDT 09/09/2022 3:08 PM EDT Narrative Resulting Agency Comment Spec In Lab Gurdeep Duenas MD CHEMISTRY ORDERABLES Performing Organization Address [facility] Co de Phone Number [facility] [place] [address] * (ABNORMAL) TSH (09/09/2022 2:49 PM EDT) TSH 0.03(L) 0.27 - 4.20 mcIU/mL [facility] Comment: Reference Interval (mcIU/mL): Females: ??First Trimester: 0.23-3.88 ??Second Trimester: 0.22-3.90 ??Third Trimester: 0.44-4.66 Blood 09/09/2022 2:49 PM EDT 09/09/2022 3:08 PM EDT Narrative Resulting Agency Comment Spec In Lab Gurdeep Duenas MD CHEMISTRY ORDERABLES Performing Organization Address [facility] Co de Phone Number [facility] [place] [address] documented in this encounter Visit Diagnoses Diagnosis Graves 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
--- OUTSIDE RECORDS SUMMARY | 2023-09-18 22:39 | XMS_ITS | Encounter Summary ---
Author Organization [facility] Address [facility] [place] [address] Care Team Providers Care Radiologic Technologist Mammogram Name Role Phone Jinny Camacho ZAINAB Primary Care Provider [phone] Encounter Details Date Type Department Care Team (Late st Contact Info) Description 06/19/2020 Tele[place] [phone] Jeremías Shirley RN Social History Tobacco Use [...] this letter to Jinny Camacho who is [facility]'s primary care provider. * Telephone Encounter [...] on filedocumented in this encounter Care Teams Radiologic Technologist Mammogram Relationship Specialty Start Date End Date Jinny Camacho APRN [address] [facility] [place] [address] PCP - General Internal Medicine 10/04/19 documented as of this encounter
--- OUTSIDE RECORDS SUMMARY | 2023-09-18 22:39 | XMS_ITS | Encounter Summary ---
Author Organization [facility] Address [facility] [place] [address] Care Team Providers Care Nursing Scheduler Name Role Phone Jinny Camacho APRN Primary Care Provider [phone] Reason for Visit * Consultation (Routine) - Closed Specialty Diagnoses / Procedures Referred By Contcherrie t Referred To Contact Vascular Surgery Diagnoses Occlusion and stenosis of unspecified carotid artery Abnormal findings on diagnostic imaging of body structures ROUTINE, NEW PATIENT, B CAR DUP - carotid stenosis OSH duplex carotid bruit, AUTOMOTIVE DRIVABILITY TECHNICIAN / PA / Jinny Castle, WET MACHINE OPERATOR [address] [place] [address] [facility] Vascular Surg [address] [place] [address] Referral ID Status Reason Start Date Expiration Date V isits Requested Visits Authorized [id number] Closed Consult, Test & Treat PCP Updated and/or Approved 01/24/2022 01/24/2023 6 6 Encounter Details Date Type Department Care Team (Late st Contact Info) Description 03/10/2022 2:00 PM EST Office [place] [address] Ruma Rose MD [facility] [place] [address] Carotid stenosis, asymptomatic, bilateral Social [...] that prompted abilateral carotid artery duplex in [facility]. She is referred to [facility] for further evaluation. She has had [...] Text Report Department: Vascular Surgery Lab Patient: [id number] (CAITLIN MARTE) CPT: 92298 Referring Physician: ANJALI CHING APRN Indications: Carotid [...] Report Impression: Carotid duplex performed here at [facility] confirms the outside hospital findings of [...] bilateral documented in this encounter Care Teams Nursing Scheduler Relationship Specialty Start Date End Date Jinny Camacho APRN [address] [place] [address] PCP - General Internal Medicine 10/04/19 documented as of this encounter
--- OUTSIDE RECORDS SUMMARY | 2023-09-18 22:39 | XMS_ITS | Encounter Summary ---
Author Organization [facility] Address [facility] [place] [address] Care Team Providers Care Provider Relations Specialist Name Role Phone Jinny Camacho ZAINAB Primary Care Provider [phone] Reason for Visit * Reason Onset Date Comments Shortness of Breath 11/04/2019 Encounter Details Date Type Department Care Team (Late st Contact Info) Description 11/04/2019 Telephone [place] [phone] Jeremías Shirley, RN Shortness of Breath Social [...] repeat thyroid test done this Thursday at [facility]. She said that she had had [...] on filedocumented in this encounter Care Teams Provider Relations Specialist Relationship Specialty Start Date End Date Jinny Camacho APRN [address] [facility] [place] [address] PCP - General Internal Medicine 10/04/19 documented as of this encounter
--- OUTSIDE RECORDS SUMMARY | 2023-09-18 22:39 | XMS_ITS | Encounter Summary ---
Author Organization [facility] Address [address] [place] [address] Care Team Providers Care Wood Caulker Name Role Phone Jinny Camacho VOLLEYBALL COMMENTATOR Primary Care Provider [phone] Reason for Visit * Reason Comments Basal [...] Expiration Date Visits Re quested Visits Authorized [id number] 12/10/2021 02/22/2022 1 1 Encounter Details Date Type Department Care Team (Late st Contact Info) Description 12/10/2021 8:30 EDT Office Visit [facility] Dermatology 5th [address] [address] Dodie Patricia MD 111 [facility], Level 5 [place] [phone] Basal cell carcinoma (BCC) of canthus of [...] Dodie Patricia MD Dermatology & Mohs Surgery iv technician, Dermatology Division [facility] 12/10/2021 16:59 MOHS OPERATIVE REPORT Patient Name: Caitlin Marte Date of Service: December 09, 2021 Surgeon and Pathologist: Dodie Patricia MD Pit Furnace Melter: Domingo Hawley MD Case #: [id number] Mohs [...] handed personally by the doctor to the mechanical laboratory technician for frozen sectioning. The tissue was [...] Dodie Patricia MD Dermatology & Mohs Surgery iv technician, Dermatology Division [facility] 12/10/2021 17:00 documented in this encounter Plan of Treatment Upcoming Encounters Date Type Department Care Team (Late st Contact Info) Description 10/27/2023 12:50 EDT Office Visit [facility] Dermatology 3rd Floor [facility] [address] [place] [address] Nikita Kumari PA-C 111 [facility], [facility], [facility] [address] [place] [address] documented as of this encounter Procedures Procedure Name Priority Date/Time Associated Diagnosis Comments PROCEDURE REPORTS - SCANNED 12/17/2021 13:33 EDT documented in this encounter Results * PROCEDURE REPORTS - SCANNED (12/17/2021 13:33 EDT) 12/17/2021 13:3 3 EDT Scan 2 Sheltered Workshop Worker PROCEDURE/MINOR CHIQUITA GICAL ORDERABLES documented in this encounter Visit Diagnoses Diagnosis Basal cell carcinoma (BCC) of canthus of right eye- Primary documented in this encounter Care Teams Wood Caulker Relationship Specialty Start Date End Date Jinny Camacho NP [address] [place] [address] PCP - General Family Medicine - Primary Care 12/03/21 documented as of this encounter
--- OUTSIDE RECORDS SUMMARY | 2023-09-18 22:39 | XMS_ITS | Encounter Summary ---
Author Organization [facility] Address [facility] [place] [address] Care Team Providers Care Project Administrator Name Role Phone Jinny Camacho APRN Primary Care Provider [phone] Encounter Details Date Type Department Care Team (Late st Contact Info) Description 08/03/2020 Orders [place] [address] Roman Pizano MD [facility] [place] [address] Hyperthyroidism Social History Tobacco Use Types Packs/Day [...] storm documented in this encounter Care Teams Project Administrator Relationship Specialty Start Date End Date Jinny Camacho APRN [address] [place] [address] PCP - General Internal Medicine 10/04/19 documented as of this encounter
--- OUTSIDE RECORDS SUMMARY | 2023-09-18 22:39 | XMS_ITS | Encounter Summary ---
Author Organization [facility] Address [facility] [place] [address] Care Team Providers Care Territory Supervisor Name Role Phone Jinny Camacho APRN Primary Care Provider [phone] Encounter Details Date Type Department Care Team (Late st Contact Info) Description 11/27/2019 Orders [place] [address] Roman Pizano MD [facility] [place] [address] Hyperthyroidism Social History Tobacco Use Types Packs/Day [...] storm documented in this encounter Care Teams Territory Supervisor Relationship Specialty Start Date End Date Jinny Camacho APRN [address] [place] [address] PCP - General Internal Medicine 10/04/19 documented as of this encounter
--- OUTSIDE RECORDS SUMMARY | 2023-09-18 22:39 | XMS_ITS | Encounter Summary ---
Author Organization [facility] Address [address] [place] [address] Care Team Providers Care Wellfield Technician Name Role Phone JaniceJinny cox STOCK LETTERER Primary Care Provider [phone] Reason for Visit * Auth/Cert Specialty Diagnoses / Procedures [facility] Referred To Contact Diagnoses Basal cell carcinoma (BCC) of right upper eyelid Basal cell carcinoma (BCC) of right upper eyelid [C44.1121] Procedures NE ADJ TISS XFER LID,NOS,EAR <10 SQCM NE REPAIR TEAR DUCTS Repair of RIGHT eyelid/Medial Carthus MOHS defect with tissue rearrangement. Possible stent placement for Repair of lacrimal drainage system PLASTIC REPAIR, CANALICULI Referral ID Status Reason Start Date Expiration Date Visits Re quested Visits Authorized [id number] 12/10/2021 02/22/2022 1 1 Encounter Details Date Type Department Care Team (Late st Contact Info) Description 12/10/2021 11:06 EDT - 12/10/2021 16:00 EDT Hospital Encounter [facility] Operating Room [address] [place] [address] Whitley Elias MD 111 [facility], [address] [place] [address] Discharge Disposition: Home or Self [...] Elias (if unsure of appointment time, call [phone]) - If you have decreasing vision, uncontrollable pain, or significant bleeding call [phone] [address] Elias documented in this encounter Medications [...] 20 mEq by mouth 2 times daily. hitiykkq-qcfhigwpt-zwml methasone (MAXITROL) ophthalmic ointment Apply to all wounds 3 times daily for 10 days 3.5 g 1 12/10/2021 05/16/2022 documented as of this encounter Ordered Prescriptions Prescription Sig Dispensed Refills Start Date End Da te gkroaczl-xjcmulhou-htnbrew hasone (MAXITROL) ophthalmic ointment Apply to all wounds 3 times daily for 10 days 3.5 g 1 12/10/2021 05/16/2022 ebpoafyz-qtnyglevw-vqdjkrd hasone (MAXITROL) ophthalmic ointment Apply to all [...] Elias MD 12/10/2021 11:49 Source Note - MATH TEACHER, PIPER 2 - 12/09/2021 16:14 EDT documented [...] diagnosis: same ?? Surgeon: Whitley Elias MD Sprinkling Truck Driver: Naz Mcneill ?? Anesthesia: General anesthesia with [...] - 12/10/2021 1600 EDT Date: 12/10/2021 Location: [facility] OR Name: Caitlin Marte, : 1940, Diagnosis [...] thickness (Active) [REMOVED] Non-Surgical Airway (Removed) Staff: Canvas Goods Fabricator: Obdulia Zhu RN; Arun Sherman RN Scrub [...] - 12/10/2021 1439 EDT Date: 12/10/2021 Location: [facility] OR Name: Caitlin Marte, : 1940, Diagnosis [...] 12/10/21 Incision Nose Full thickness (Active) Staff: Canvas Goods Fabricator: Obdulia Zhu RN; Arun Sherman RN Scrub [...] [facility] Dermatology 3rd Floor [facility] [address] [place], [place] [address] Nikita Kumari PA-C 111 [facility], [address] [place] [address] documented as of this encounter [...] EDT) 12/12/2021 11:4 3 EDT Scan 2 Cook Box Filler PROCEDURE/MINOR CHIQUITA GICAL ORDERABLES documented in this [...] Discontinue Reason Start Date End Da te hqoasxee-lmatwnzql-tch amethasone (MAXITROL) ophthalmic ointment Apply to all [...] (Given - Provid er: Whitley Elias MD) yndqkkta-huwdwyxbg-geisztevrmtnc (MAXITROL) ophthalmic ointment (CANCELED) PRN, Starting on [...] naloxone (NARCAN) injection 0.2 mg 1 2021 oemtexia-rietodndq-vhwckcmsx sone (MAXITROL) ophthalmic ointment 1 12/10/2021 ondansetron (PF) (ZOFRAN) injection 4 mg 1 12/10/2021 oxymetazoline (AFRIN) 0.05 % nasal spray 1 12/10/2021 sodium chloride 0.9 % irrigation 1 12/11/19 Discharge Count Last Ordered Date First Orde red Date DISCHARGE PATIENT 1 12/10/2021 documented in this encounter Care Teams Wellfield Technician Relationship Specialty Start Date End Date Jinny Camacho NP [address] [place] [address] PCP - General Family Medicine - Primary Care 12/03/21 documented as of this encounter
--- OUTSIDE RECORDS SUMMARY | 2023-09-18 22:39 | XMS_ITS | Encounter Summary ---
Author Organization [facility] Address [facility] [place] [address] Care Team Providers Care Interior Horticulturist Name Role Phone Jinny Camacho ZAINAB Primary Care Provider [phone] Encounter Details Date Type Department Care Team (Late st Contact Info) Description 08/03/2020 8:00 AM EDT TH Visit (TeleHealth) [place] [address] Roman Pizano MD [facility] [place] [address] Hyperthyroidism Social History Tobacco Use Types Packs/Day [...] lab request to her local hospital in [facility]. When I get the results I will [...] storm documented in this encounter Care Teams Interior Horticulturist Relationship Specialty Start Date End Date Jinny Camacho APRN [address] [place] [address] PCP - General Internal Medicine 10/04/19 documented as of this encounter
--- OUTSIDE RECORDS SUMMARY | 2023-09-18 22:39 | XMS_ITS | Encounter Summary ---
Author Organization [facility] Address [facility] [place] [address] Care Team Providers Care Piece Marker Small Arms Name Role Phone Jinny Camacho ZAINAB Primary Care Provider [phone] Encounter Details Date Type Department Care Team (Late st Contact Info) Description 11/11/2022 11:30 AM EDT Office Visit Endocr[place] [address] Gurdeep Duenas MD [facility] [place] [address] Graves disease; Graves' orbitopathy Social History Tobacco [...] Duenas MD - 11/11/2022 11:30 AM EDT [facility] Follow up Patient [...] in 3 months, to be done at [facility], and have her follow up with me [...] orders and on documentation. Gurdeep Duenas MD Brick Veneer Makersack cleaner Endocrinology Section [facility] documented in this encounter Plan [...] T3, Total 174 80 - 200 ng/dL [facility] Blood 11/11/2022 12:2 2 PM EDT 11/11/2022 12:26 PM EDT Narrative Resulting Agency Comment Spec In Lab Gurdeep Duenas MD CHEMISTRY ORDERABLES Performing Organization Address City/[facility]/ZIP Co de Phone Number [facility] [place] [address] * (ABNORMAL) T4, free (11/11/2022 12:22 PM EDT) Free T4 0.82(L) 0.93 - 1.70 ng/dL [facility] Comment: Reference Interval (ng/dL): Females: ??First Trimester: 0.97-1.68 ??Second Trimester: 0.77-1.51 ??Third Trimester: 0.77-1.49 Blood 11/11/2022 12:2 2 PM EDT 11/11/2022 12:26 PM EDT Narrative Resulting Agency Comment Spec In Lab Gurdeep Duenas MD CHEMISTRY ORDERABLES Performing Organization Address [facility] Co de Phone Number [facility] [place] [address] * (ABNORMAL) TSH (11/11/2022 12:22 PM EDT) TSH 0.22(L) 0.27 - 4.20 mcIU/mL [facility] Comment: Reference Interval (mcIU/mL): Females: ??First Trimester: 0.23-3.88 ??Second Trimester: 0.22-3.90 ??Third Trimester: 0.44-4.66 Blood 11/11/2022 12:2 2 PM EDT 11/11/2022 12:26 PM EDT Narrative Resulting Agency Comment Spec In Lab Gurdeep Duenas MD CHEMISTRY ORDERABLES Performing Organization Address City/[facility]/ZIP Co de Phone Number [facility] [place] [address] documented in this encounter Visit Diagnoses Diagnosis Graves disease Toxic diffuse goiter 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
--- OUTSIDE RECORDS SUMMARY | 2023-09-18 22:39 | XMS_ITS | Encounter Summary ---
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, unspecified thyrotoxicosis type Jinny Camacho APRN [address] [place] [address] Stevo Saucedo MD [facility] [place] [address] Referral ID Status Reason Start Date Expiration Date Visits Requested Visits Authorized [id number] Authorized Consult, Test & Treat PCP Updated and/or Approved 01/28/2023 01/28/2024 6 6 Encounter Details Date Type Department Care Team (Latest Contact Info) Description 01/28/2023 Transcribe Orders eDH Incoming Referrals [phone] Jinny Camacho APRN [address] [place], [place] [id number] Thyrotoxicosis without thyroid storm, unspecified thyrotoxicosis type [...] storm documented in this encounter Care Teams Health Promotion Coordinator Relationship Specialty Start Date End Date Jinny Camacho, BINDERY MACHINE FEEDER OFFBEARER [address] [place] [address] PCP - General Internal Medicine 10/04/19 documented as of this encounter
--- OUTSIDE RECORDS SUMMARY | 2023-09-18 22:39 | XMS_ITS | Encounter Summary ---
Author Organization [facility] [place] [address] Care Team Providers Care Wood Inspector Name Role Phone Jinny Camacho APRN Primary Care Provider [phone] Reason for Referral * Consultation (Routine) - Closed Specialty Diagnoses / Procedures Referred By Zoya juarez Referred To Contact Endocrinology Diagnoses Basedow's disease Pretibial myxedema Jinny Camacho APRN [address] [place] [address] [facility] [address] [place] [phone] Referral ID Status Reason Start Date Expiration Date V isits Requested Visits Authorized [id number] Closed Consult, Test & Treat PCP Updated and/or Approved 08/12/2022 02/08/2023 6 6 Encounter Details Date Type Department Care Team (Latest Contact Info) Description 09/03/2022 Transcribe Orders eDH Incoming Referrals [phone] Jinny Camacho APRN [address] [place], [place] [id number] Basedow's disease; Pretibial myxedema Social History Tobacco [...] storm documented in this encounter Care Teams Wood Inspector Relationship Specialty Start Date End Date Jinny Camacho, SAWYER HELPER [address] [place] [address] PCP - General Internal Medicine 10/04/19 documented as of this encounter
--- OUTSIDE RECORDS SUMMARY | 2023-09-18 22:39 | XMS_ITS | Encounter Summary ---
Author Organization [facility] Address [address] [place] [address] Care Team Providers Care Fish Cake Maker Name Role Phone Unknown, Provider Primary Care Provider Reason for Visit * Reason Onset Date Comments Other 07/04/2021 Encounter Details Date Type Department Care Team (Late st Contact Info) Description 07/04/2021 Telephone [facility] Ophthalmology - [address] [phone] Whitley Elias MD [address] [place] [address], [address] [place] [phone] Other Social History Tobacco Use Types Packs/Day [...] Visit [facility] Dermatology 3rd Floor [facility] [address] [place] [address] Nikita Kumari, PARogeC 111 [facility], [facility], [address] [place] [phone] documented as of this encounter Visit Diagnoses Not on filedocumented in this encounter Care Teams Fish Cake Maker Relationship Specialty Start Date End Date Unknown, Provider, PCP - General 01/25/21 12/02/21 documented as of this encounter
--- OUTSIDE RECORDS SUMMARY | 2023-09-18 22:39 | XMS_ITS | Encounter Summary ---
[place] [address] Care Team Providers Care Labor Delivery Rn Name Role Phone Jinny Camacho APRN Primary Care Provider [phone] Reason for Visit * Reason Onset Date Comments Medication Refill 04/22/2021 Encounter Details Date Type Department Care Team (Late st Contact Info) Description 04/22/2021 [place] [phone] Jeremías Shirley, RN Social History Tobacco Use [...] on filedocumented in this encounter Care Teams Labor Delivery Rn Relationship Specialty Start Date End Date Jinny Camacho APRN [address] [place] [address] PCP - General Internal Medicine 10/04/19 documented as of this encounter
--- OUTSIDE RECORDS SUMMARY | 2023-09-18 22:39 | XMS_ITS | Encounter Summary ---
Author Organization [facility] Address [facility] [place] [address] Care Team Providers Care Sexual Assault Nurse Name Role Phone Jinny Camacho ZAINAB Primary Care Provider [phone] Encounter Details Date Type Department Care Team (Late st Contact Info) Description 11/12/2022 Telephone [place] [address] Gurdeep Duenas MD [facility] [place] [address] Social History Tobacco Use Types Packs/Day Years [...] days. Repeat labs in [address] [facility] - orders sent. Gurdeep Duenas MD Refractory Specialistscreed person Endocrinology Section [facility] documented in this encounter Plan of Treatment Not on file documented as of this encounter Visit Diagnoses Not on filedocumented in this encounter Care Teams Sexual Assault Nurse Relationship Specialty Start Date End Date Jinny Camacho, ZAINAB [address] [place] [address] PCP - General Internal Medicine 10/04/19 documented as of this encounter
--- OUTSIDE RECORDS SUMMARY | 2023-09-18 22:39 | XMS_ITS | Clinical Summary ---
Author Organization [facility] [place] [address] Care Team Providers Care Adoption Agent Name Role Phone Jinny Camacho ZAINAB Primary Care Provider [phone] Allergies Active Allergy Reactions Criticality Noted Date [...] (03/10/2022): Added automatically from request for surgery [id number] Hyperthyroidism 11/24/2019 Social History Tobacco Use Types [...] - Influenza standard series) 10/25/2023 Care Teams Adoption Agent Relationship Specialty Start Date End Date Jinny Camacho APRN [address] [place], [place] [id number] PCP - General Internal Medicine 10/04/19
== END 2023-09-18 22:38 | disposition home or self-care (01) ==
LOC: LBN 22:37
PROVIDERS: PCP Nurse Practitioner; Visit Provider Nurse Practitioner
DX: R19.7 Diarrhea, unspecified (principal)
CPT/HCPCS: 87493; 87505; 83993; 87177

== ENCOUNTER 2023-09-24 04:37 | Outpatient (CLI) | payer MEDICARE, SELFPAY ==
--- OUTSIDE RECORDS SUMMARY | 2023-09-24 04:38 | XMS_ITS | Encounter Summary ---
Author Organization [facility] Address [address] [place] [address] Care Team Providers Care Client Evaluator Name Role Phone Jinny Camacho MACHINE PECAN PICKER Primary Care Provider [phone] Reason for Visit * Reason Onset Date Comments Appointment Related 05/20/2022 Encounter Details Date Type Department Care Team (Late st Contact Info) Description 05/20/2022 Telephone [facility] Dermatology 5th [address] [address] Kim Maravilla, RN Appointment Related Social History [...] Info) Description 10/27/2023 12:50 EDT Office Visit [facility] Dermatology 3rd Floor [facility] [address] [place], [place] [address] Nikita Kumari PA-C 111 [facility], [address] [place] [phone] documented as of this encounter Visit Diagnoses Not on filedocumented in this encounter Care Teams Client Evaluator Relationship Specialty Start Date End Date Jinny Camacho NP [address] [place] [address] PCP - General Family Medicine - Primary Care 12/03/21 documented as of this encounter
--- OUTSIDE RECORDS SUMMARY | 2023-09-24 04:38 | XMS_ITS | Encounter Summary ---
Author Organization [facility] Address [address] [place] [address] Care Team Providers Care Lamp Shade Joiner Name Role Phone JaniceJinny THRILL PERFORMER Primary Care Provider [phone] Reason for Visit * Reason Comments Follow-up Skin lesions Encounter Details Date Type Department Care Team (Late st Contact Info) Description 10/29/2022 10:50 EDT Office Visit [facility] Dermatology 3rd Floor [address] [phone] Nikita Kumari PA-C 111 [facility], [address] [place] [address] History of basal cell carcinoma [...] discomfort. Tylenol, taken as directed by the employee health rn, will help relieve pain. If Tylenol does [...] choose to look at your results in Virtual Web prior to our office contacting you, that is your right and choice. Our office policy is to have your provider or the provider???s mailing machine assistant contact you with your results and [...] not call the office or send a Virtual Web message asking to discuss them. Providers are seeing patients during the day and cannot answer calls during clinic time or off hours/weekends. Unless it is an emergency, the manager credit collections provider will not review biopsy and/ or lab results. Thank you for entrusting us with your care. [facility] documented in this encounter Progress Notes [...] PATIENT INFORMATION: Caitlin Marte : MRN: [id number] SURGEON: Nikita Kumari PA-C The indication, risks, [...] 10/27/2023 12:50 EDT Office Visit [facility] Dermatology [address] [facility] [address] [place], [place] [phone] Nikita Kumari PA-C 111 [facility], [facility], [address] [place] [address] documented as of this encounter [...] management options, if applicable. 10/31/2022 10:36 EDT [facility] Final Diagnosis A. SKIN OF FOREHEAD, RIGHT SUPERIOR, SHAVE BIOPSY: - Basal cell carcinoma, superficial and nodular types, pigmented. See comment. - Lesion does not extend to biopsy edges in the plane of sections examined. - Lesion measures approximately 0.2 mm to the biopsy base. - Lesion measures approximately 0.8 mm to the biopsy edge. 10/31/2022 10:36 EDT [facility] Diagnosis Comment The findings are those of basal cell carcinoma, best appreciated on deeper sections. 10/31/2022 10:36 T [facility] Attestation By the signature [...] islands and stroma. SOX-10 ALK PHOS (SP267, [employer] [place]) shows a melanocytes to be generally normal [...] performance characteristics have been determined by [facility] and/or by the referring laboratory. The [...] Gabi Molinai 10/30/2022 8:14 10/31/2022 10:36 EDT [facility] Performing Lab [facility] 10:36 EDT [facility] Scanned Images 10/31/2022 10:36 EDT [facility] Tissue SPECIMEN FROM SKIN / Unknown 10/29/2022 12:12 EDT 10/29/2022 16:24 EDT Nikita Kumari PA-C PATHOLOGY ORDERAB LES [facility] [address] [place] [address] documented in this encounter Visit Diagnoses Diagnosis History of basal cell carcinoma- Primary Personal history of other malignant neoplasm of skin Diffuse photodamage of skin Other chronic dermatitis due to solar radiation Seborrheic keratoses Neoplasm of uncertain behavior of skin documented in this encounter Care Teams Lamp Shade Joiner Relationship Specialty Start Date End Date Jinny Camacho NP [address] [place] [address] PCP - General Family Medicine - Primary Care 12/03/21 documented as of this encounter
--- OUTSIDE RECORDS SUMMARY | 2023-09-24 04:38 | XMS_ITS | Referral Summary ---
Author Organization [facility] Address [address] [place] [address] Care Team Providers Care Forest Ranger Name Role Phone JaniceJinny CHILDHOOD TEACHER Primary Care Provider [phone] Encounters Date Type Department Care Team Description 09/16/2023 Lab Requisition [facility] Pathology & Laboratory Medicine - [address] [address] Outr Resulting Lab, Provider from Last 3 [...] Overview: Added automatically from request for surgery [id number] Social History Tobacco Use Types Packs/Day Years [...] Info) Description 10/27/2023 12:50 EDT Office Visit [facility] Dermatology 3rd Floor [address] [address] Nikita Kumari PA-C [address] [place] [address], Level 5 [place] [phone] Procedures Procedure Name Priority Date/Time Associated Diagnosis Comments FECAL BACTERIAL PATHOGENS BY PCR Routine 09/16/2023 11:00 EDT from Last 3 Months Results * FECAL BACTERIAL PATHOGENS BY PCR (09/16/2023 11:00 EDT) Salmonella PCR Negative Negative 09/17/2023 13:40 EDT [facility] Shigella/Enteroin vasive E. coli Negative Negative 09/17/2023 13:40 EDT [facility] HN LAB CAMPYLOBACTER PCR Negative Negative 09/17/2023 13:40 EDT [facility] Shiga Toxin PCR Negative Negative 13:40 EDT [facility] Feces SPECIMEN FROM RECTUM / Unknown 09/16/2023 11:00 EDT 09/16/2023 21:40 EDT Provider Outr Resulting Lab MICROBIOLOGY - GENERAL ORDERABLES [facility] [address] [place], [place] [address] from Last 3 Months Caitlin Marte A Personal/Family Self 1940 [address] [facility] [address] [place] [id number] Caitlin Marte A Personal/Family Self 1940 [address] [facility] [address] [place] [address] Caitlin Marte A Personal/Family Self 1940 [address] [facility] [address] [place] [address] Caitlin Marte A Personal/Family Self 1940 [address] [facility] [address] [place] [address] Caitlin Marte Personal/Family Self 1940 [address] [facility] [address] [place], [place] [address] auguste Personal/Family Self 1940 [address] [facility] [address] [place] [address] Care Teams Forest Ranger Relationship Specialty Start Date End Date Jinny Camacho NP [address] [place] [address] PCP - General Family Medicine - Primary Care 12/03/21
--- OUTSIDE RECORDS SUMMARY | 2023-09-24 04:38 | XMS_ITS | Encounter Summary ---
Author Organization [facility] Address [address] [place] [address] Care Team Providers Care Music Store Manager Name Role Phone Jinny Camacho Wagner KEY BED INSTALLER Primary Care Provider [phone] Encounter Details Date Type Department Care Team (Late st Contact Info) Description 09/16/2023 Lab Requisition [facility] Pathology & Laboratory Medicine [address] [address] Outr Resulting Lab, Provider Social History Tobacco [...] Info) Description 10/27/2023 12:50 EDT Office Visit [facility] Dermatology 3rd Floor [address] [place] [address] Nikita Kumari PA-C [address] [facility] 5 [place] [phone] documented as of this encounter Procedures Procedure Name Priority Date/Time Associated Diagnosis Comments FECAL BACTERIAL PATHOGENS BY PCR Routine 09/16/2023 11:00 EDT documented in this encounter Results * FECAL BACTERIAL PATHOGENS BY PCR (09/16/2023 11:00 EDT) Salmonella PCR Negative Negative 09/17/2023 13:40 EDT [facility] Shigella/Enteroin vasive E. coli Negative Negative 09/17/2023 13:40 EDT [facility] HN LAB CAMPYLOBACTER PCR Negative Negative 09/17/2023 13:40 EDT [facility] Shiga Toxin PCR Negative Negative 13:40 EDT [facility] Feces SPECIMEN FROM RECTUM / Unknown 09/16/2023 11:00 EDT 09/16/2023 21:40 EDT Provider Outr Resulting Lab MICROBIOLOGY - GENERAL ORDERABLES [facility] [address] [place], [place] [address] documented in this encounter Visit Diagnoses Not on filedocumented in this encounter Care Teams Music Store Manager Relationship Specialty Start Date End Date Jinny Camacho NP [address] [place] [address] PCP - General Family Medicine - Primary Care 12/03/21 documented as of this encounter
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
--- OUTSIDE RECORDS SUMMARY | 2023-09-24 04:38 | XMS_ITS | Clinical Summary ---
Author Organization [facility] Address [address] [place] [address] Care Team Providers Care Test Desk Trouble Locator Name Role Phone Janice Jinny A MARK UP DESIGNER Primary Care Provider [phone] Allergies No known active allergies Medications Medication [...] Overview: Added automatically from request for surgery [id number] Encounters Date Type Department Care Team Description 09/16/2023 Lab Requisition [facility] Pathology & Laboratory Medicine - [facility] [address] [place] [address] Outr Resulting Lab, Provider from Last 3 [...] Info) Description 10/27/2023 12:50 EDT Office Visit [facility] Dermatology 3rd Floor [address] [address] Nikita Kumari PARogeC [address] [place] [address], [address] [place] [address] Health Maintenance Due Date Last [...] Salmonella PCR Negative Negative 09/17/2023 13:40 EDT [facility] Shigella/Enteroin vasive E. coli Negative Negative 09/17/2023 13:40 EDT [facility] HN LAB CAMPYLOBACTER PCR Negative Negative 09/17/2023 13:40 EDT [facility] Shiga Toxin PCR Negative Negative 13:40 EDT [facility] Feces SPECIMEN FROM RECTUM / Unknown 09/16/2023 11:00 EDT 09/16/2023 21:40 EDT Provider Outr Resulting Lab MICROBIOLOGY - GENERAL ORDERABLES [facility] [address] [place], [place] [address] from Last 3 Months Care Teams Test Desk Trouble Locator Relationship Specialty Start Date End Date Jinny Camacho NP [address] [place] [address] PCP - General Family Medicine - Primary Care 12/03/21
--- OUTSIDE RECORDS SUMMARY | 2023-09-24 04:39 | XMS_ITS | Clinical Summary ---
Author Organization [facility] [place] [place] [address] [place] [address] Care Team Providers Care Composite Assembler Name Role Phone Jinny Camacho ZAINAB Primary Care Provider [phone] Allergies Active Allergy Reactions Criticality Noted Date [...] (03/10/2022): Added automatically from request for surgery [id number] Hyperthyroidism 11/24/2019 Social History Tobacco Use Types [...] - Influenza standard series) 10/25/2023 Care Teams Composite Assembler Relationship Specialty Start Date End Date Jinny Camacho APRN [address] [place], [place] [phone] PCP - General Internal Medicine 10/04/19
--- OUTSIDE RECORDS SUMMARY | 2023-09-24 04:39 | XMS_ITS | Encounter Summary ---
Author Organization [facility] Address [address] [place] [address] Care Team Providers Care Brine Tank Separator Operator Name Role Phone Jinny Camacho Wagner AUTOMOTIVE TIRE TECHNICIAN Primary Care Provider [phone] Reason for Visit * Reason Onset Date Comments Appointment Related 01/21/2022 Calling to ariella yeboah appointment with Dr. Whitley Elias in Ophthalmology January 23 at 10:30am. Encounter Details Date Type Department Care Team (Late st Contact Info) Description 01/21/2022 Telephone [facility] Ophthalmology - [address] [phone] Whitley Elias MD [address] [facility], [address] [place] [address] Appointment Related (Calling to cancel [...] reschedule in February. Her phone number is [phone]. documented in this encounter Plan of Treatment Upcoming Encounters Date Type Department Care Team (Late st Contact Info) Description 10/27/2023 12:50 EDT Office Visit [facility] Dermatology 3rd Floor [address] [phone] Nikita Kumari, PARogeC [address] [facility], [facility] 5 [place] [phone] documented as of this encounter Visit Diagnoses Not on filedocumented in this encounter Care Teams Brine Tank Separator Operator Relationship Specialty Start Date End Date Jinny Camacho NP [address] [place] [address] PCP - General Family Medicine - Primary Care 12/03/21 documented as of this encounter
--- OUTSIDE RECORDS SUMMARY | 2023-09-24 04:39 | XMS_ITS | Encounter Summary ---
Author Organization [facility] Address [address] [place] [address] Care Team Providers Care Blow Molding Machine Tender Name Role Phone Unknown, Provider Primary Care Provider Reason for Visit * Reason Comments Mohs Consult medial canthus- Dr. lEias biopsied on 09/24/2021 Encounter Details Date Type Department Care Team (Late st Contact Info) Description 10/03/2021 10:30 EDT Initial consult [facility] Dermatology 5th Floor [address] [address] Dodie Patricia MD 111 [facility], Level [address] [place] [address] Neoplasm of uncertain behavior of [...] take place on the 5th floor of [place] [address] in the [facility]. If you would like, bring your own music (iPod with headphones, etc) for listening during the procedure. For additional information and a video on Mohs surgery please visit the following website from the [employer] please visit the following website from the [employer]: www.mohscollege.org Here's an additional video from the [employer]: www.asds.net/Ozin-Spwjuab-syx-Skin-Cancer Consider Eucerin redness relief or Clinique Redness [...] discomfort. Tylenol, taken as directed by the asbestos brake lining finisher, will help relieve pain. If Tylenol does [...] choose to look at your results in Bio[employer] prior to our office contacting you, that is your right and choice. Our office policy is to have your provider or the provider???s funeral director's assistant contact you with your results and [...] not call the office or send a [employer]hart message asking to discuss them. Providers are seeing patients during the day and cannot answer calls during clinic time or off hours/weekends. Unless it is an emergency, the implementation project manager provider will not review biopsy and/ or lab results. Thank you for entrusting us with your care. [facility]- Dermatology documented in this encounter Progress Notes * Alena Sims MD - 10/03/2021 1030 EDT Images from the original note were not included. MOHS EVALUATION NOTE Chief Complaint Patient presents with ??? Mohs Consult medial [facility]- Dr. Elias biopsied on 09/24/2021 Subjective: Caitlin [...] PATIENT INFORMATION: Caitlin Marte : MRN: [id number] SURGEON: Dodie Patricia MD ASIC DESIGN ENGINEER: Alena Sims MD The indication, risks, benefits [...] Sims MD, LACEY, MS PGY-3 Dermatology Pager [phone] 10/04/21 10:15 Attestation statement: I performed or was present during the nick or critical portions of the visit and participated in the management of the patient. I agree with the findings and plan of care documented in the resident's/fellow's note. The resident performed the procedure under my direct supervision and with my assistance.. Dodie Patricia MD Dermatology & Mohs Surgery certified vehicle fire investigator, Dermatology Division [facility] 10/04/2021 10:13 documented in this encounter [...] Description 10/27/2023 12:50 EDT Office Visit [facility] Dermatology 3rd Floor [address] [address] Nikita Kumari, DANDRE [address] [place] [address], [address] [place] [address] documented as of this encounter [...] explore management options, if applicable. 10/05/2021 10:33 [facility] Final Diagnosis A. SKIN OF NASAL SIDEWALL, RIGHT, SHAVE BIOPSY: - Melanocytic nevus, predominantly intradermal type. See comment. 10/05/2021 10:33 [facility] Diagnosis Comment Multiple levels of the biopsy have been reviewed. Features of intradermal nevus are best appreciated on deeper sections. Basal cell carcinoma is not identified. 10/05/2021 10:33 [facility] Attestation By the signature below, the attending physician certifies that they have 1) personally conducted a gross and/or microscopic examination of the described specimen(s), and/or personally interpreted the results of laboratory testing of the described specimen(s), and 2) personally rendered or confirmed the above diagnosis. 10/05/2021 10:33 [facility] at 1033 Clinical History Right nasal sidewall, favor BCC; clinical diagnosis code: D48.5 10/05/2021 10:33 [facility] Gross Description A. Received in formalin labelled with proper patient identification (initials W, P) and right nasal sidewall is a 0.5 x 0.3 x 0.1 cm ovoid shave pearly white skin. The margin is inked. The specimen is submitted intact in A1. DAVID SALVADOR(ASCP) 10/03/2021 15:53 10/05/2021 10:33 [facility] Performing Lab [facility] 10/05/2021 10:33 [facility] Scanned Images 10/05/2021 10:33 [facility] Tissue TISSUE SPECIMEN FROM SKIN / Unknown Collection, Other / Unknown 10/03/2021 11:16 EDT 10/03/2021 13:26 EDT Dodie Patricia MD PATHOLOGY [facility] [address] [place] [address] documented in this encounter Visit Diagnoses Diagnosis Neoplasm of uncertain behavior of skin- Primary Basal cell carcinoma (BCC) of medial canthus of right eye Basal cell carcinoma (BCC) of right medial cheek documented in this encounter Care Teams Blow Molding Machine Tender Relationship Specialty Start Date End Date Unknown, Provider, PCP - General 01/25/21 12/02/21 documented as of this encounter
--- OUTSIDE RECORDS SUMMARY | 2023-09-24 04:39 | XMS_ITS | Encounter Summary ---
Author Organization [facility] Address [address] [place] [address] Care Team Providers Care Engagement Mgr Name Role Phone Unknown, Provider Primary Care Provider Reason for Visit * Reason Comments Procedure Encounter Details Date Type Department Care Team (Late st Contact Info) Description 09/24/2021 14:45 EDT Office Visit [facility] Ophthalmology - [address] [address] Whitley Elias MD [address] [place] [address], [address] [place] [phone] Social History Tobacco Use Types Packs/Day Years [...] Visit [facility] Dermatology 3rd Floor [facility] [address] [place], [place] [phone] Nikita Kumari PA-C 111 [facility], [facility] 5 [place] [address] documented as of this encounter [...] - RIGHT EYE (09/27/2021 17:57 EDT) Narrative [facility] POINT [facility] CARE - 09/27/2021 17:57 [...] call pathology results. ??Return precautions were discussed. Whiltey Elias MD [facility] PROCEDU RES [facility] POINT OF CARE * SURGICAL PATHOLOGY (09/24/2021 15:59 EDT) Note to Patient The following pathology results have been interpreted by your pathologist and may be available to you before your health provider has had the opportunity to review them. Please allow time for your provider to receive these results and explore management options, if applicable. 09/26/2021 14:12 [facility] Final Diagnosis A. SKIN OF MEDIAL CANTHUS, RIGHT, BIOPSY: - Basal cell carcinoma, nodular type. - Basal cell carcinoma present at peripheral and deep tissue edges. B. SKIN OF CHEEK, RIGHT, BIOPSY: - Basal cell carcinoma, nodular type. - Basal cell carcinoma present peripheral and deep tissue edges. 09/26/2021 14:12 [facility] Attestation By the signature below, the attending physician certifies that they have 1) personally conducted a gross and/or microscopic examination of the described specimen(s), and/or personally interpreted the results of laboratory testing of the described specimen(s), and 2) personally rendered or confirmed the above diagnosis. 09/26/2021 14:12 [facility] at 1412 Microscopic Description [...] of the islands and stroma. 09/26/2021 14:12 [facility] Clinical History Medial canthus lesion suspucius for malignancy, cheek lesion suspicious for malignancy; clinical diagnosis code: D48.5 09/26/2021 14:12 EDT [facility] Gross Description A. Received [...] inked and submitted entirely in B1. DAVID FLANNERY([facility]) 09/25/2021 6:39 09/26/2021 14:12 EDT [facility] Performing Lab [facility] 09/26/2021 14:12 T [facility] Scanned Images 09/26/2021 14:12 T [facility] Tissue TISSUE SPECIMEN FROM SKIN / Unknown Collection, Other / Unknown 09/24/2021 15:59 EDT 09/24/2021 17:14 EDT Tissue specimen (specimen) SPECIMEN FROM SKIN / Unknown 09/24/2021 15:59 EDT 09/24/2021 17:14 EDT Whitley Elias MD PATHOLOGY ORDERABLES [facility] [address] [place] [address] documented in this encounter Visit Diagnoses Diagnosis Neoplasm of uncertain behavior of skin of eyelid- Primary Neoplasm of uncertain behavior of skin documented in this encounter Care Teams Engagement Mgr Relationship Specialty Start Date End Date Unknown, Provider, PCP - General 01/25/21 12/02/21 documented as of this encounter
--- OUTSIDE RECORDS SUMMARY | 2023-09-24 04:39 | XMS_ITS | Encounter Summary ---
Author Organization [facility] Address [facility] [place] [address] Care Team Providers Care Automotive Service Technician Name Role Phone Jinny Camacho ZAINAB Primary Care Provider [phone] Encounter Details Date Type Department Care Team (Late st Contact Info) Description 09/09/2022 2:00 PM EDT Office [place] [address] Gurdeep Duenas MD [facility] [place] [address] Graves disease; Graves' orbitopathy Social History Tobacco [...] Duenas MD - 09/09/2022 2:00 PM EDT [facility] Endocrinology Clinic Follow up Patient [...] orders and on documentation. Gurdeep Duenas MD Home Hospice Aideprocurement buyer Endocrinology Section [facility] documented in this encounter Plan [...] 2:49 PM EDT) Neutrophils % 45.4 % [facility] Neutr Abs (ANC) 3.86 1.70 - 6.10 x10(3)/mc L [facility] Lymphocytes % 41.3 % [facility] Lymphocytes Abs 3.5(H) 0.9 - 3.2 x10(3)/mc L [facility] Monocytes % 11.1 % [facility] Monocyte Abs 0.9 0.3 - 0.9 x10(3)/mc L [facility] Eosinophils % 1.5 % [facility] Eosinophils Abs 0.1 0.0 - 0.4 x10(3)/mc L [facility] Basophils % 0.6 % [facility] Basophils Abs 0.0 0.0 - 0.1 x10(3)/mc L [facility] Immature Gran % 0.10 % [facility] Comment: Immature granulocytes(IG's)percentage and absolute count will include metamyelocytes, myelocytes, and promyelocytes. Blood smears from CBCs yielding IG's will be scanned manually for concordance. If this scan disagrees with the automated IG or if promyelocytes are noted, a manual differential will be performed. Tg Gran Abs 0.01 0.00 - 0.04 x10(3)/ L [facility] Blood 09/09/2022 2:49 PM EDT 09/09/2022 3:08 PM EDT Narrative Resulting Agency Comment Spec In Lab Gurdeep Duenas MD HEMATOLOGY ORDERABLE S [facility] [place] [address] * Hemogram (09/09/2022 2:49 PM EDT) WBC 8.5 4.0 - 9.5 x10(3)/[facility] RBC 4.36 4.00 - 5.21 x10(6)/[facility] Hemoglobin 12.5 11.7 - 15.5 g/dL [facility] Hematocrit 38.7 35.7 - 45.8 % [facility] MCV 88.8 82.6 - 94.4 [facility] MCH 28.7 27.1 - 32.0 pg [facility] MCHC 32.3 31.7 - 35.0 g/dL [facility] Platelets 216 145 - 357 x10(3)/[facility] RDWSD 44.0 37.0 - 46.0 [facility] RDWCV 13.4 11.5 - 14.1 % [facility] MPV 9.7 7.6 - 12.9 [facility] nRBC % Auto 0.0 % [facility] nRBC Abs Auto 0.000 0.000 - 0.000 x10(3)/[facility] Blood 09/09/2022 2:49 PM EDT 09/09/2022 3:08 PM EDT Narrative Resulting Agency Comment Spec In Lab Gurdeep Duenas MD HEMATOLOGY ORDERABLE S Performing Organization Address [facility] Co de Phone Number [facility] [place] [address] * (ABNORMAL) Thyroid Stimulating Immunoglobulins (09/09/2022 2:49 PM EDT) TSI >40.00(H) <=0.55 IU/L [facility] Blood 09/09/2022 2:49 PM EDT 09/10/2022 7:20 AM EDT Narrative Resulting Agency Comment Spec In Lab Gurdeep Duenas MD IMMUNOLOGY ORDERABLE S Performing Organization Address [facility] Co de Phone Number [facility] [place] [address] * T3 Total (09/09/2022 2:49 PM EDT) T3, Total 153 80 - 200 ng/dL [facility] Blood 09/09/2022 2:49 PM EDT 09/09/2022 3:08 PM EDT Narrative Resulting Agency Comment Spec In Lab Gurdeep Duenas MD CHEMISTRY ORDERABLES Performing Organization Address [facility] Co de Phone Number [facility] [place] [address] * T4, free (09/09/2022 2:49 PM EDT) Free T4 0.97 0.93 - 1.70 ng/dL [facility] Comment: Reference Interval (ng/dL): Females: ??First Trimester: 0.97-1.68 ??Second Trimester: 0.77-1.51 ??Third Trimester: 0.77-1.49 Blood 09/09/2022 2:49 PM EDT 09/09/2022 3:08 PM EDT Narrative Resulting Agency Comment Spec In Lab Gurdeep Duenas MD CHEMISTRY ORDERABLES Performing Organization Address [facility] Co de Phone Number [facility] [place] [address] * (ABNORMAL) TSH (09/09/2022 2:49 PM EDT) TSH 0.03(L) 0.27 - 4.20 mcIU/mL [facility] Comment: Reference Interval (mcIU/mL): Females: ??First Trimester: 0.23-3.88 ??Second Trimester: 0.22-3.90 ??Third Trimester: 0.44-4.66 Blood 09/09/2022 2:49 PM EDT 09/09/2022 3:08 PM EDT Narrative Resulting Agency Comment Spec In Lab Gurdeep Duenas MD CHEMISTRY ORDERABLES Performing Organization Address 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
--- OUTSIDE RECORDS SUMMARY | 2023-09-24 04:39 | XMS_ITS | Encounter Summary ---
Author Organization [facility] Address [address] [place] [address] Care Team Providers Care Pullman Car Repairer Name Role Phone JaniceJinny GRAPHIC ART DESIGNER Primary Care Provider [phone] Reason for Visit * Reason Onset Date Comments Appointment Related 01/21/2022 Encounter Details Date Type Department Care Team (Late st Contact Info) Description 01/21/2022 Telephone [facility] Ophthalmology - [address] [id number] Whitley Elias MD [address] [place] [address], [address] [place] [address] Appointment Related Social History Tobacco [...] 10/27/2023 12:50 EDT Office Visit [facility] Dermatology 3rd Floor [address] [address] Nikita Kumari PA-C 111 [facility], [address] [place] [phone] documented as of this encounter Visit Diagnoses Not on filedocumented in this encounter Care Teams Pullman Car Repairer Relationship Specialty Start Date End Date Jinny Camacho NP [address] [place] [address] PCP - General Family Medicine - Primary Care 12/03/21 documented as of this encounter
--- OUTSIDE RECORDS SUMMARY | 2023-09-24 04:39 | XMS_ITS | Encounter Summary ---
Author Organization [facility] Address [facility] [place] [address] Care Team Providers Care Unit Reactor Operator Name Role Phone Jinny Camacho APRN Primary Care Provider [phone] Encounter Details Date Type Department Care Team (Late st Contact Info) Description 01/21/2023 Telephone [place] [address] Gurdeep Duenas MD [facility] [place] [address] Social History Tobacco Use Types Packs/Day Years [...] adjust dose of Methimazole. Gurdeep Duenas MD Nuclear Equipment Operatorcommunity engagement coordinator Endocrinology Section [facility] documented in this encounter Plan of Treatment Not on file documented as of this encounter Visit Diagnoses Not on filedocumented in this encounter Care Teams Unit Reactor Operator Relationship Specialty Start Date End Date Jinny Camacho APRN [address] [place] [address] PCP - General Internal Medicine 10/04/19 documented as of this encounter
--- OUTSIDE RECORDS SUMMARY | 2023-09-24 04:39 | XMS_ITS | Encounter Summary ---
Author Organization [facility] [place] [address] Care Team Providers Care Manager Therapy Name Role Phone Jinny Camacho APRN Primary Care Provider [phone] Encounter Details Date Type Department Care Team [...] filedocumented in this encounter Care Teams Manager Therapy Relationship Specialty Start Date End Date Jinny Camacho APRN [address] [place] [address] PCP - General Internal Medicine 10/04/19 documented as of this encounter
--- OUTSIDE RECORDS SUMMARY | 2023-09-24 04:39 | XMS_ITS | Encounter Summary ---
Author Organization [facility] Address [address] [place] [address] Care Team Providers Care Injection Molding Machine Operator Name Role Phone Unknown, Provider Primary Care Provider [phone] Jinny Camacho CASKET INSPECTOR Primary Care Provider [phone] Encounter Details Date Type Department Care Team (Late st Contact Info) Description 11/04/2019 Lab Requisition [facility] Pathology & Laboratory Medicine - [address] [address] Outr Resulting Lab, Provider Social History Tobacco [...] Info) Description 10/27/2023 12:50 EDT Office Visit [facility] Dermatology 3rd Floor [address] [address] Nikita Kumari PA-C [address] [place] [address], [address] [place] [phone] documented as of this encounter Procedures Procedure Name Priority Date/Time Associated Diagnosis Comments ZZCOVID-19 TEST [facility] PCR Today 11/04/2019 20:46 EDT COVID-19 TESTING Routine 11/04/2019 20:4 6 EDT documented in this encounter Results * COVID-19 TEST [facility] PCR (11/04/2019 20:46 EDT) Swab ENTIRE NASOPHARYNX / Unknown 11/04/2019 20:46 EDT 11/05/2019 9:20 EDT Provider Outr Resulting Lab MICROBIOLOGY - GENERAL ORDERABLES Performing Organization Address City/[facility]/ZIP Co de Phone Number [facility] [address] [place] [address] * COVID-19 TESTING (11/04/2019 20:46 EDT) COVID-19 rt-PCR Result Negative Negative 11/05/2019 12:43 EDT [facility] Comment: This test [...] history, and epidemiological information. Performed on the StepLeaderher Fusion instrument Performing Lab [place] [facility] 11/05/2019 12:43 EDT [facility] Swab 11/04/2019 20:4 6 EDT 11/05/2019 9:20 EDT Provider Outr Resulting Lab MICROBIOLOGY - GENERAL ORDERABLES Performing Organization Address City/[facility]/ZIP Co de Phone Number [facility] [address] [place] [address] documented in this encounter Visit Diagnoses Not on filedocumented in this encounter Care Teams Injection Molding Machine Operator Relationship Specialty Start Date End Date Unknown, Provider, PCP - General 01/25/21 12/02/21 Jinny Camacho NP [address] [place] [address] PCP - General Family Medicine - Primary Care 12/03/21 documented as of this encounter
--- OUTSIDE RECORDS SUMMARY | 2023-09-24 04:39 | XMS_ITS | Encounter Summary ---
Author Organization Count Includes [facility] [address] Care Team Providers Care Stripper Black And White Name Role Phone Jinny Camacho APRN Primary Care Provider [phone] Reason for Referral * Consultation (Routine) - Closed Specialty Diagnoses / Procedures Referred By Zoya t Referred To Contact Vascular Surgery Diagnoses Occlusion and stenosis of unspecified carotid artery Abnormal findings on diagnostic imaging of body structures ROUTINE, NEW PATIENT, B CAR DUP - carotid stenosis OSH duplex carotid bruit, FIELD EDUCATION COORDINATOR / PA / Jinny Castle APRN [address] [place] [address] [facility] Surg [address] [place] [address] Referral ID Status Reason Start Date Expiration Date V isits Requested Visits Authorized [id number] Closed Consult, Test & Treat PCP Updated and/or Approved 01/24/2022 01/24/2023 6 6 Encounter Details Date Type Department Care Team (Latest Contact Info) Description 01/24/2022 Transcribe Orders eDH Incoming Referrals [phone] Jinny Camacho APRN [address] [place], [place] [id number] Occlusion and stenosis of unspecified carotid artery; [...] structures documented in this encounter Care Teams Stripper Black And White Relationship Specialty Start Date End Date Jinny Camacho, SEBD TEACHER [address] [place] [address] PCP - General Internal Medicine 10/04/19 documented as of this encounter
--- OUTSIDE RECORDS SUMMARY | 2023-09-24 04:39 | XMS_ITS | Encounter Summary ---
Author Organization [facility] [place] [address] Care Team Providers Care Telephone Directory Distributor Driver Name Role Phone Jinny Camacho APRN Primary Care Provider [phone] Encounter Details Date Type Department Care Team (Late st Contact Info) Description 08/13/2022 Telephone [place] [address] Petros Schmidt, [facility] [place] [address] Social History Tobacco Use Types Packs/Day Years [...] on filedocumented in this encounter Care Teams Telephone Directory Distributor Driver Relationship Specialty Start Date End Date Jinny Camacho APRN [address] [place] [address] PCP - General Internal Medicine 10/04/19 documented as of this encounter
--- OUTSIDE RECORDS SUMMARY | 2023-09-24 04:39 | XMS_ITS | Encounter Summary ---
Author Organization [facility] Address [address] [place] [address] Care Team Providers Care Sales Representative Marine Supplies Name Role Phone JaniceJinny SOD STRIPPER Primary Care Provider [phone] Reason for Visit * Auth/Cert Specialty Diagnoses / Procedures [facility] Referred To Contact Diagnoses Basal cell [...] Expiration Date Visits Re quested Visits Authorized [id number] 12/10/2021 02/22/2022 1 1 Encounter Details Date Type Department Care Team (Late st Contact Info) Description 12/10/2021 12:09 EDT Anesthesia Event [facility] Operating Room [address] [place] [address] Roberto Montilla MD [address] [address] Ramirez Cotto AA [address] [address] Anesthesia Record Procedure Summary Procedure [...] - 12/10/2021 1451 EDT Patient: Caitlin Edward [facility] Vital signs were reviewed with the recovery nurse. [facility] Vitals Value Taken Time BP 142/77 12/10/21 [...] during procedure: OR Anesthesiologist: Roberto Montilla MD Resident/GRAND SCRIBE: Ramirez Cotto AA Performed: anesthesiologist and resident/GRAND SCRIBE/AA Indications and Patient Condition Indications for airway [...] Visit [facility] Dermatology 3rd Floor [facility] [address] [place] [address] Nikita Kumari PA-C 111 [facility], [facility], [address] [place] [address] documented as of this encounter Procedures Procedure Name Priority Date/Time Associated Diagnosis Comments ANESTHESIA INTUBATION Routine 12/10/2021 12:19 EDT documented in this encounter Results * [place] AN ELECTIVE ENDOTRACHEAL AIRWAY (12/10/2021 12:19 EDT) Narrative Ramirez Cotto AA - 12/10/2021 12:19 EDT Ramirez Cotto AA ? 12/10/2021 12:35 Airway Date/Time: 12/10/2021 12:19 Urgency: elective Airway not difficult General Information and Staff Patient location during procedure: [place] Anesthesiologist: Roberto Montilla MD Resident/GRAND SCRIBE: Ramirez Cotto AA Performed: anesthesiologist and resident/GRAND SCRIBE/AA Indications and Patient Condition Indications for airway [...] mg documented in this encounter Care Teams Sales Representative Marine Supplies Relationship Specialty Start Date End Date Jinny Camacho NP [address] [place] [address] PCP - General Family Medicine - Primary Care 12/03/21 documented as of this encounter
--- OUTSIDE RECORDS SUMMARY | 2023-09-24 04:39 | XMS_ITS | Encounter Summary ---
Author Organization [facility] Address [facility] [place] [address] Care Team Providers Care Roof Cement And Paint Maker Name Role Phone Jinny Camacho APRN Primary Care Provider [phone] Reason for Visit * Consultation (Routine) - Closed Specialty Diagnoses / Procedures Referred By Contcherrie t Referred To Contact Vascular Surgery Diagnoses Occlusion and stenosis of unspecified carotid artery Abnormal findings on diagnostic imaging of body structures ROUTINE, NEW PATIENT, B CAR DUP - carotid stenosis OSH duplex carotid bruit, SENIOR SALES OPERATIONS ANALYST / PA / Jinny Castle, ALUM OPERATOR [address] [place] [address] [facility] [address] [place] [address] Referral ID Status Reason Start Date Expiration Date V isits Requested Visits Authorized [id number] Closed Consult, Test & Treat PCP Updated and/or Approved 01/24/2022 01/24/2023 6 6 Encounter Details Date Type Department Care Team (Late st Contact Info) Description 03/10/2022 2:00 PM EST Office Visit [place] [address] Ruma Rose MD [facility] [place] [address] Carotid stenosis, asymptomatic, bilateral Social [...] that prompted abilateral carotid artery duplex in [facility]. She is referred to [facility] for further evaluation. She has had [...] Text Report Department: Vascular Surgery Lab Patient: [id number] (CAITLIN MARTE) CPT: [id number] Referring Physician: ANJALI CHING APRN Indications: Carotid [...] Report Impression: Carotid duplex performed here at [facility] confirms the outside hospital findings of [...] bilateral documented in this encounter Care Teams Roof Cement And Paint Maker Relationship Specialty Start Date End Date Jinny Camacho APRN [address] [place] [address] PCP - General Internal Medicine 10/04/19 documented as of this encounter
--- OUTSIDE RECORDS SUMMARY | 2023-09-24 04:39 | XMS_ITS | Encounter Summary ---
Author Organization [facility] [place] [address] Care Team Providers Care Subject Scientific Research Name Role Phone Jinny Camacho APRN Primary Care Provider [phone] Encounter Details Date Type Department Care Team [...] on filedocumented in this encounter Care Teams Subject Scientific Research Relationship Specialty Start Date End Date Jinny Camacho APRN [address] [place] [address] PCP - General Internal Medicine 10/04/19 documented as of this encounter
--- OUTSIDE RECORDS SUMMARY | 2023-09-24 04:39 | XMS_ITS | Encounter Summary ---
Author Organization [facility] Address [facility] [place] [address] Care Team Providers Care Laborer Bituminous Paving Name Role Phone Jinny Camacho ZAINAB Primary Care Provider [phone] Encounter Details Date Type Department Care Team (Late st Contact Info) Description 09/12/2022 Telephone [place] [address] Gurdeep Duenas MD [facility] [place] [address] Social History Tobacco Use Types Packs/Day Years [...] explain worsening eye disease. Gurdeep Duenas MD Food Sales Clerkgreens keeper Endocrinology Section [facility] documented in this encounter Plan of Treatment Not on file documented as of this encounter Visit Diagnoses Not on filedocumented in this encounter Care Teams Laborer Bituminous Paving Relationship Specialty Start Date End Date Jinny Camacho APRN [address] [place] [address] PCP - General Internal Medicine 10/04/19 documented as of this encounter
--- OUTSIDE RECORDS SUMMARY | 2023-09-24 04:39 | XMS_ITS | Encounter Summary ---
Author Organization [facility] Address [facility] [place] [address] Care Team Providers Care Breaster Name Role Phone Jinny Camacho APRN Primary Care Provider [phone] Encounter Details Date Type Department Care Team (Late st Contact Info) Description 11/12/2022 Orders [place] [address] Gurdeep Duenas MD [facility] [place] [address] Graves disease Social History Tobacco Use Types [...] storm documented in this encounter Care Teams Breaster Relationship Specialty Start Date End Date Jinny Camacho APRN [address] [place] [address] PCP - General Internal Medicine 10/04/19 documented as of this encounter
--- OUTSIDE RECORDS SUMMARY | 2023-09-24 04:39 | XMS_ITS | Encounter Summary ---
Author Organization [facility] Address [address] [place] [address] Care Team Providers Care Street Contractor Name Role Phone Unknown, Provider Primary Care Provider [phone] Jinny Camacho WAREHOUSE SUPERVISOR Primary Care Provider [phone] Encounter Details Date Type Department Care Team (Late st Contact Info) Description 11/07/2019 Lab Requisition [facility] Pathology & Laboratory Medicine - [address] [address] Outr Resulting Lab, Provider Social History Tobacco [...] Info) Description 10/27/2023 12:50 EDT Office Visit [facility] Dermatology 3rd Floor [address] [address] Nikita Kumari PA-C [address] [place] [address], [address] [place] [phone] documented as of this encounter Procedures Procedure Name Priority Date/Time Associated Diagnosis Comments T3, TOTAL Routine 11/07/2019 7:10 EDT documented in this encounter Results * T3, TOTAL (11/07/2019 7:10 EDT) T3, Total 130 97 - 169 ng/dL 11/07/2019 22:12 EDT [facility] Blood VENOUS BLOOD / Unknown 11/07/2019 7:10 EDT 11/07/2019 21:30 EDT Provider Outr Resulting Lab CHEMISTRY & BLOOD GAS ORDERABLES [facility] [address] [place] [address] documented in this encounter Visit Diagnoses Not on filedocumented in this encounter Care Teams Street Contractor Relationship Specialty Start Date End Date Unknown, Provider, PCP - General 01/25/21 12/02/21 Jinny Camacho, WAREHOUSE SUPERVISOR [address] [place] [address] PCP - General Family Medicine - Primary Care 12/03/21 documented as of this encounter
--- OUTSIDE RECORDS SUMMARY | 2023-09-24 04:39 | XMS_ITS | Encounter Summary ---
Author Organization [facility] [place] [address] Care Team Providers Care Queen Producer Name Role Phone Jinny Camacho MANAGER OPERATIONS RESEARCH Primary Care Provider [phone] Encounter Details Date Type Department Care Team (Late st Contact Info) Description 03/10/2022 1:00 PM EST Tech [place] [address] Cassie Baldwin R, [place] Bilateral carotid artery [...] Text Report Department: Vascular Surgery Lab Patient: [id number] (CAITLIN MARTE) CPT: [id number] Referring Physician: ANJALI MARTINO APRN ?? Indications: [...] VASCUBASE 03/10/2022 1:04 PM EST Anjali Martino MANAGER OPERATIONS RESEARCH VASCULAR ORDERABLE S VASCUBASE documented in this encounter Visit Diagnoses Diagnosis Bilateral carotid artery stenosis Occlusion and stenosis of multiple and bilateral precerebral arteries without mention of cerebral infarction documented in this encounter Care Teams Queen Producer Relationship Specialty Start Date End Date Jinny Camacho APRN [address] [place] [address] PCP - General Internal Medicine 10/04/19 documented as of this encounter
--- OUTSIDE RECORDS SUMMARY | 2023-09-24 04:39 | XMS_ITS | Encounter Summary ---
Author Organization [facility] Address [address] [place] [address] Care Team Providers Care Ballast Regulator Operator Name Role Phone Unknown, Provider Primary Care Provider Reason for Visit * Reason Onset Date Comments Appointment Related 07/19/2021 Encounter Details Date Type Department Care Team (Late st Contact Info) Description 07/19/2021 Telephone [facility] Ophthalmology - [address] [address] Whitley Elias MD [address] [place] [address], Level 5 [place] [phone] Appointment Related Social History Tobacco Use Types [...] Info) Description 10/27/2023 12:50 EDT Office Visit [facility] Dermatology 3rd Floor [facility] [address] [place], [place] [address] Nikita Kumari PA-C 111 [facility], [facility], Level 5 [place] [phone] documented as of this encounter Visit Diagnoses Not on filedocumented in this encounter Care Teams Ballast Regulator Operator Relationship Specialty Start Date End Date Unknown, Provider, PCP - General 01/25/21 12/02/21 documented as of this encounter
--- OUTSIDE RECORDS SUMMARY | 2023-09-24 04:39 | XMS_ITS | Encounter Summary ---
Author Organization [facility] [place] [address] Care Team Providers Care Senior Control Systems Engineer Name Role Phone Jinny Camacho APRN Primary Care Provider [phone] Reason for Referral * Consultation (Routine) - Closed Specialty Diagnoses / Procedures Referred By Zoya juarez Referred To Contact Endocrinology Diagnoses Basedow's disease Pretibial myxedema Jinny Camacho APRN [address] [place] [address] [facility] Endocrinology [address] [place] [phone] Referral ID Status Reason Start Date Expiration Date V isits Requested Visits Authorized [id number] Closed Consult, Test & Treat PCP Updated and/or Approved 08/12/2022 02/08/2023 6 6 Encounter Details Date Type Department Care Team (Latest Contact Info) Description 09/03/2022 Transcribe Orders eDH Incoming Referrals [phone] Jinny Camacho APRN [address] [place], [place] [phone] Basedow's disease; Pretibial myxedema Social History Tobacco [...] documented in this encounter Care Teams Senior Control Systems Engineer Relationship Specialty Start Date End Date Jinny Camacho, [employer] RETAILER SALES CONSULTANT [address] [place] [address] PCP - General Internal Medicine 10/04/19 documented as of this encounter
--- OUTSIDE RECORDS SUMMARY | 2023-09-24 04:39 | XMS_ITS | Encounter Summary ---
Author Organization [facility] Address [address] [place] [address] Care Team Providers Care Car Shunter Name Role Phone JaniceJniny FOOD SERVICE STEWARD Primary Care Provider [phone] Reason for Visit * Reason Comments Post-OP Follow Up Encounter Details Date Type Department Care Team (Late st Contact Info) Description 02/28/2022 14:30 EST Post-op Visit [facility] Ophthalmology - [address] [address] Whitley Elias MD 111 [facility], Level 5 [place] [address] Basal cell carcinoma (BCC) of [...] NL Endocrine: NL Hematologic: NL Immunologic: NL Chlorination Operator: Menopause Exposures: None Other: Attestation: Allergies [...] [facility] Derm[facility]ology 3rd Floor [address] [address] Nikita Kumari, DANDRE [address] [place] [address], [facility] 5 [place] [address] documented as of this encounter [...] reactive Round and rusty ctive Care Teams Car Shunter Relationship Specialty Start Date End Date Jinny Camacho, FOOD SERVICE STEWARD [address] [place] [address] PCP - General Family Medicine - Primary Care 12/03/21 documented as of this encounter
--- OUTSIDE RECORDS SUMMARY | 2023-09-24 04:39 | XMS_ITS | Encounter Summary ---
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 Possible stent placement for Repair of lacrimal drainage system PLASTIC REPAIR, CANALICULI Referral ID Status Reason Start Date Expiration Date Visits Re quested Visits Authorized [id number] 12/10/2021 02/22/2022 1 1 Encounter Details Date Type Department Care Team (Late st Contact Info) Description 12/10/2021 11:15 EDT - 12/10/2021 14:21 EDT Surgery [facility] Operating Room [address] [place] [address] Whitley Elias MD 111 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 Possible stent placement for Repair of lacrimal drainage system [61344 (CPT??)] Surgery Details Date/Time Status Location OR Service Patient Class Case Class Case Type Trauma Case? 12/10/21 1115 Posted [facility] OR FOR 04 Ophthalmology [...] Elias (if unsure of appointment time, call [phone]) - If you have decreasing vision, uncontrollable pain, or significant bleeding call [phone] [address] Elias documented in this encounter Medications [...] 20 mEq by mouth 2 times daily. jnuajkbh-palazrhfx-pjuf methasone (MAXITROL) ophthalmic ointment Apply to all wounds 3 times daily for 10 days 3.5 g 1 12/10/2021 05/16/2022 documented as of this encounter Ordered Prescriptions Prescription Sig Dispensed Refills Start Date End Da te uxmnoqlx-cptwcrvfk-mclxmdk hasone (MAXITROL) ophthalmic ointment Apply to all wounds 3 times daily for 10 days 3.5 g 1 12/10/2021 05/16/2022 qlaxaebm-qnxjwfjmp-yubptxt hasone (MAXITROL) ophthalmic ointment Apply to all [...] Elias MD 12/10/2021 11:49 Source Note - SUPERVISOR FUR FLOOR WORKER, SCAN 2 - 12/09/2021 16:14 EDT documented [...] diagnosis: same ?? Surgeon: Whitley Elias MD Spring Intern: Naz Mcneill ?? Anesthesia: General anesthesia with [...] - 12/10/2021 1600 EDT Date: 12/10/2021 Location: [facility] OR Name: Caitlin Marte, : 1940, [...] thickness (Active) [REMOVED] Non-Surgical Airway (Removed) Staff: Health Assistant: Obdulia Zhu RN; Arun Sherman RN Scrub [...] - 12/10/2021 1439 EDT Date: 12/10/2021 [facility] Name: Caitlin Marte, : [...] 12/10/21 Incision Nose Full thickness (Active) Staff: Health Assistant: Obdulia Zhu RN; Arun Sherman RN Scrub [...] Office Visit [facility] Dermatology 3rd Floor [address] [phone] Nikita Kumari PA-C [address] [place] [address], Level 5 [place] [phone] documented as of this encounter Procedures Procedure [...] EDT) 12/12/2021 11:4 3 EDT Scan 2 Bobbin Inspector PROCEDURE/MINOR CHIQUITA GICAL ORDERABLES documented in this [...] New Bag 12/10/2021 12:02 EDT 25 mL/hr pfaaxrig-zuyimuexv-htzmkpxvnntkz (MAXITROL) ophthalmic ointment PRN, Starting on Thu12/10/21 at 1342, Until Thu12/10/21 at 1442, Intraprocedure Given 12/10/2021 13:42 EDT 3,500 mg oxymetazoline (AFRIN) 0.05 % nasal spray PRN, Starting on Thu12/10/21 at 1341, Until Thu12/10/21 at 1442, Routine, Intraprocedure Given 12/10/2021 13:41 EDT 1 [place] Other sodium chloride 0.9 % irrigation PRN, Starting on Thu12/10/21 at 1341, Until Thu12/10/21 at 1442, Routine, Intraprocedure Given 12/10/2021 13:41 EDT 500 mL documented in this encounter Discontinued Medications Medication Sig Discontinue Reason Start Date End Da te wjaxxtnu-timcitlse-fuc amethasone (MAXITROL) ophthalmic ointment Apply to all [...] (Given - Provid er: Whitley Elias MD) nlopvtvm-zpahozmlp-iwyisrvsnezqb (MAXITROL) ophthalmic ointment (CANCELED) PRN, Starting on Thu12/10/21 at 1342, Until Thu12/10/21 at 1442, Intraprocedure 1342 (Given - Provid er: Whitley Elias MD) oxymetazoline (AFRIN) 0.05 % nasal spray (CANCELED) PRN, Starting on Thu12/10/21 at 1341, Until Thu12/10/21 at 1442, Routine, Intraprocedure 1341 (Given - Provid er: Wihtley Elias MD - Comment: to soak cottonoids [...] 12/10/2021 documented in this encounter Care Teams Guide Plant Relationship Specialty Start Date End Date Jinny Camacho NP [address] [place] [address] PCP - General Family Medicine - Primary Care 12/03/21 documented as of this encounter
--- OUTSIDE RECORDS SUMMARY | 2023-09-24 04:39 | XMS_ITS | Encounter Summary ---
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 Possible stent placement for Repair of lacrimal drainage system PLASTIC REPAIR, CANALICULI Referral ID Status Reason Start Date Expiration Date Visits Re quested Visits Authorized [id number] 12/10/2021 02/22/2022 1 1 Encounter Details Date Type Department Care Team (Late st Contact Info) Description 12/10/2021 11:06 EDT - 12/10/2021 16:00 EDT Hospital Encounter [facility] Operating Room [address] [place] [address] Whitley Elias MD 111 [facility], Level 5 [place] [address] Discharge Disposition: Home or Self [...] Elias (if unsure of appointment time, call [phone]) - If you have decreasing vision, uncontrollable pain, or significant bleeding call [phone] [address] Elias documented in this encounter Medications [...] 20 mEq by mouth 2 times daily. pjffxshy-mktpdaaon-jniy methasone (MAXITROL) ophthalmic ointment Apply to all wounds 3 times daily for 10 days 3.5 g 1 12/10/2021 05/16/2022 documented as of this encounter Ordered Prescriptions Prescription Sig Dispensed Refills Start Date End Da te cuyosqzw-gndsggpvh-aohohzg hasone (MAXITROL) ophthalmic ointment Apply to all wounds 3 times daily for 10 days 3.5 g 1 12/10/2021 05/16/2022 tantpyvz-tzepyjiaf-lzooknm hasone (MAXITROL) ophthalmic ointment Apply to all wounds 3 times daily for 10 days 3.5 g 1 12/10/2021 12/10/2021 documented in this encounter Discharge Disposition Disposition Code Departure Means Destination Home or Self Senior Care documented in this encounter H&P Notes * Whitley Elais MD - 12/10/2021 1115 EDT The preoperative history and physical which was performed within 30 days of this procedure has been reviewed and the clinically appropriate elements of the physical examination have been repeated. There are no changes to the documented history and physical or if so such changes are documented below Whitley Elias MD 12/10/2021 11:49 Source Note - NUCLEAR PLANT TECHNICAL ADVISOR, PIPER 2 - 12/09/2021 16:14 EDT documented [...] diagnosis: same ?? Surgeon: Whitley Elias MD Filling And Stapling Machine Operator: Naz Mcneill ?? Anesthesia: General anesthesia with [...] - 12/10/2021 1600 EDT Date: 12/10/2021 Location: [facility] OR Name: Caitlin Marte, : 1940, Diagnosis [...] thickness (Active) [REMOVED] Non-Surgical Airway (Removed) Staff: Marble Worker: Obdulia Zhu RN; Arun Sherman RN Scrub [...] - 12/10/2021 1439 EDT Date: 12/10/2021 Location: [facility] OR Name: Caitlin Marte, : 1940, Diagnosis [...] 12/10/21 Incision Nose Full thickness (Active) Staff: Marble Worker: Obdulia Zhu RN; Arun Sherman RN Scrub [...] Info) Description 10/27/2023 12:50 EDT Office Visit [facility] Dermatology 3rd Floor [facility] [address] [place], [place] [address] Nikita Kumari PA-C 111 [facility], Level [address] [place] [address] documented as of this encounter [...] EDT) 12/12/2021 11:4 3 EDT Scan 2 Environmental Compliance Manager PROCEDURE/MINOR CHIQUITA GICAL ORDERABLES documented in this [...] Discontinue Reason Start Date End Da te ynrwsuym-rulxmgeaz-pws amethasone (MAXITROL) ophthalmic ointment Apply to all [...] (Given - Provid er: Whitley Elias MD) mxujoyqn-raxlkaioo-wgkioxumexqrj (MAXITROL) ophthalmic ointment (CANCELED) PRN, Starting on [...] naloxone (NARCAN) injection 0.2 mg 1 2021 vitediej-qkyybzjxt-myvagnveq sone (MAXITROL) ophthalmic ointment 1 12/10/2021 ondansetron (PF) (ZOFRAN) injection 4 mg 1 12/10/2021 oxymetazoline (AFRIN) 0.05 % nasal spray 1 12/10/2021 sodium chloride 0.9 % irrigation 1 12/11/19 Discharge Count Last Ordered Date First Orde red Date DISCHARGE PATIENT 1 12/10/2021 documented in this encounter Care Teams Parts Finisher Relationship Specialty Start Date End Date Jinny Camacho NP [address] [place] [address] PCP - General Family Medicine - Primary Care 12/03/21 documented as of this encounter
--- OUTSIDE RECORDS SUMMARY | 2023-09-24 04:39 | XMS_ITS | Encounter Summary ---
Author Organization [place] [address] Care Team Providers Care Ems Helicopter Pilot Name Role Phone Jinny Camacho APRN Primary Care Provider [phone] Encounter Details Date Type Department Care Team [...] on filedocumented in this encounter Care Teams Ems Helicopter Pilot Relationship Specialty Start Date End Date Jinny Camacho APRN [address] [place] [address] PCP - General Internal Medicine 10/04/19 documented as of this encounter
--- OUTSIDE RECORDS SUMMARY | 2023-09-24 04:39 | XMS_ITS | Encounter Summary ---
Author Organization [facility] Address [address] [place] [address] Care Team Providers Care Imaging Nurse Name Role Phone JaniceJinny CUT PRESSMAN Primary Care Provider [phone] Reason for Visit * Reason Comments Basal Cell Carcinoma Right cheek * Office Procedure (Routine) - Authorization Not Required Specialty Diagnoses / Procedures [facility] Referred To Contact Diagnoses BCC (basal [...] [place] MOHS, 1 STAGE, HEAD/NECK/HAND/FEET/GENTI AL MOHS [facility] Dermatology [address] [place] [address] Dodie Patricia MD 111 [facility], Level 5 [place] [address] Referral ID Status Reason Start Date Expiration Date Visits Requested Visits Authorized [id number] Authorization Not Required 01/23/2022 1 1 Encounter Details Date Type Department Care Team (Late st Contact Info) Description 04/15/2022 10:30 EST Office Visit [facility] Dermatology 5th Floor [address] [address] Dodie Patricia MD [address] [place] [address], Level 5 [place] [address] Basal cell carcinoma (BCC) of [...] have one), and don't bend over to last picker objects or tie shoes for a [...] rapidly swells. CONTACT INFORMATION: To reach the watcher automat long goods physician: During office hours: 8:00 am - 5:00 PM Thursday through Thursday Call: [phone] Ask to speak with a surgery nurse AFTER HOURS/WEEKENDS/HOLIDAYS: First call Dr. Dodie Patricia's cell phone: [phone]; if unable to reach Dr. Patricia, Call [phone] for the MOHS surgeon watcher automat long goods. LONG-TERM WOUND CARE INSTRUCTIONS *Once the bandages [...] Patricia MD Dermatology & Mohs Surgery Associate Social Secretary, Mohs Surgery Fellowship education technician, Dermatology Division [facility] 04/15/2022 15:38 Risk factors: Pacemaker/ICD: none Anticoagulants: none Total joint replacements/valves: none Allergies: Patient has No Known Allergies. Immunosuppression: none Smoking status: reports that she has quit smoking. She has never used smokeless tobacco MOHS OPERATIVE REPORT Patient Name: Caitlin Marte Date of Service: April 15, 2022 Surgeon and Pathologist: Dodie Patricia MD Taper Printed Circuit Layout: Domingo Hawley MD Case #: [id number] Mohs [...] handed personally by the doctor to the cable television technician for frozen sectioning. The tissue was [...] INFORMATION: Caitlin Marte SURGEON: Dodie Patricia MD PLASTIC PARTS FABRICATOR TRIMMER: Domingo Hawley MD and Jonn Nolasco MD [...] BIOPSY PROCEDURE NOTE PATIENT INFORMATION: Caitlin Marte [id number] 1940 DATE OF PROCEDURE: 04/15/2022 SURGEON: Dodie Patricia MD PLASTIC PARTS FABRICATOR TRIMMER: Domingo Hawley MD DIAGNOSIS: Neoplasm of uncertain [...] 2022 Surgeon and Pathologist: Dodie Patricia MD Taper Printed Circuit Layout: Domingo Hawley MD Case #: [id number] Mohs [...] handed personally by the doctor to the cable television technician for frozen sectioning. The tissue was [...] throughout. INTERMEDIATE REPAIR PATIENT INFORMATION: Caitlin [facility] SURGEON: Dodie Patricia MD PLASTIC PARTS FABRICATOR TRIMMER: Domingo Hawley MD PREOPERATIVE DIAGNOSIS: Defect following [...] Patricia MD Dermatology & Mohs Surgery Associate Social Secretary, Mohs Surgery Fellowship education technician, Dermatology Division [facility] 04/15/2022 15:39 documented in this encounter Plan of Treatment Upcoming Encounters Date Type Department Care Team (Late st Contact Info) Description 10/27/2023 12:50 EDT Office Visit [facility] Dermatology 3rd Floor [address] [address] Nikita Kumari PA-C [address] [place] [address], Level 5 [place] [phone] documented as of this encounter Procedures Procedure Name Priority Date/Time Associated Diagnosis Comments PROCEDURE REPORTS - SCANNED 04/18/2022 7:04 EST documented in this encounter Results * PROCEDURE REPORTS - SCANNED (04/18/2022 7:04 EST) 04/18/2022 7:04 EST Scan 2 Tool Mechanic PROCEDURE/MINOR CHIQUITA GICAL ORDERABLES documented in this encounter Visit Diagnoses Diagnosis Basal cell carcinoma (BCC) of chin- Primary Basal cell carcinoma (BCC) of right cheek Neoplasm of uncertain behavior of skin documented in this encounter Care Teams Imaging Nurse Relationship Specialty Start Date End Date Jinny Cmaacho NP [address] [place] [address] PCP - General Family Medicine - Primary Care 12/03/21 documented as of this encounter
--- OUTSIDE RECORDS SUMMARY | 2023-09-24 04:39 | XMS_ITS | Encounter Summary ---
Author Organization [facility] Address [address] [place] [address] Care Team Providers Care Coin Wrapping Machine Operator Name Role Phone Unknown, Provider Primary Care Provider Reason for Visit * Reason Onset Date Comments Other 07/04/2021 Encounter Details Date Type Department Care Team (Late st Contact Info) Description 07/04/2021 Telephone [facility] Ophthalmology - [address] [phone] Whitley Elias MD [address] [place] [address], Level 5 [place] [phone] Other Social History Tobacco Use Types Packs/Day [...] [facility] Dermatology 3rd Floor [facility] [address] [place] [address] Nikita Kumari, PARogeC 111 [facility], [facility], Level [address] [place] [phone] documented as of this encounter Visit Diagnoses Not on filedocumented in this encounter Care Teams Coin Wrapping Machine Operator Relationship Specialty Start Date End Date Unknown, Provider, PCP - General 01/25/21 12/02/21 documented as of this encounter
--- OUTSIDE RECORDS SUMMARY | 2023-09-24 04:39 | XMS_ITS | Encounter Summary ---
Author Organization [facility] Address [address] [place] [address] Care Team Providers Care Transit Department Clerk Name Role Phone Jinny Camacho CORN SHREDDER Primary Care Provider [phone] Reason for Visit * Reason Comments Basal [...] Expiration Date Visits Re quested Visits Authorized [id number] 12/10/2021 02/22/2022 1 1 Encounter Details Date Type Department Care Team (Late st Contact Info) Description 12/10/2021 8:30 EDT Office Visit [facility] Dermatology 5th Floor [address] [address] Dodie Patricia MD 111 [facility], Level [address] [place] [phone] Basal cell carcinoma (BCC) of canthus of [...] Dodie Patricia MD Dermatology & Mohs Surgery senior ssis developer, Dermatology Division [facility] 12/10/2021 16:59 MOHS OPERATIVE REPORT Patient Name: Caitlin Marte Date of Service: December 09, 2021 Surgeon and Pathologist: Dodie Patricia MD County Or City Auditor: Domingo Hawley MD Case #: [id number] Mohs [...] handed personally by the doctor to the wardrobe technician for frozen sectioning. The tissue was [...] Dodie Patricia MD Dermatology & Mohs Surgery senior ssis developer, Dermatology Division [facility] 12/10/2021 17:00 documented in this encounter Plan of Treatment Upcoming Encounters Date Type Department Care Team (Late st Contact Info) Description 10/27/2023 12:50 EDT Office Visit [facility] Dermatology 3rd Floor [facility] [address] [place] [address] Nikita Kumari PA-C 111 [facility], [facility], [facility] [address] [place] [address] documented as of this encounter Procedures Procedure Name Priority Date/Time Associated Diagnosis Comments PROCEDURE REPORTS - SCANNED 12/17/2021 13:33 EDT documented in this encounter Results * PROCEDURE REPORTS - SCANNED (12/17/2021 13:33 EDT) 12/17/2021 13:3 3 EDT Scan 2 Crusher Loader Equipment Operator PROCEDURE/MINOR CHIQUITA GICAL ORDERABLES documented in this encounter Visit Diagnoses Diagnosis Basal cell carcinoma (BCC) of canthus of right eye- Primary documented in this encounter Care Teams Transit Department Clerk Relationship Specialty Start Date End Date Jinny Camacho NP [address] [place] [address] PCP - General Family Medicine - Primary Care 12/03/21 documented as of this encounter
--- OUTSIDE RECORDS SUMMARY | 2023-09-24 04:39 | XMS_ITS | Encounter Summary ---
Author Organization [facility] Address [address] [place] [address] Care Team Providers Care Habitat Biologist Name Role Phone JaniceJinny AGRICULTURE SPECIALIST Primary Care Provider [phone] Reason for Visit * Reason Comments Post-OP Follow Up Encounter Details Date Type Department Care Team (Late st Contact Info) Description 12/16/2021 12:30 EDT Post-op Visit [facility] Ophthalmology - [address] [phone] Whitley Elias MD 111 [facility], Level 5 [place] [address] Basal cell carcinoma (BCC) of [...] removal) Neurologic: Psychiatric: Endocrine: Hematologic: Immunologic: NL Shuttle Car Operator: Exposures: Other: Attestation: Allergies include: Patient [...] mg by mouth 3 times daily. ??? gljoobrr-xurnhccfi-qxboarxfkwozr (MAXITROL) ophthalmic ointment Apply to all wounds [...] Office Visit [facility] Dermatology 3rd Floor [address] [phone] Nikita Kumari PA-C 111 [facility], Level [address] [place] [address] documented as of this encounter [...] quiet Iris Round and reactive Care Teams Habitat Biologist Relationship Specialty Start Date End Date Jinny Camacho, GHAZALA [address] [place] [address] PCP - General Family Medicine - Primary Care 12/03/21 documented as of this encounter
--- OUTSIDE RECORDS SUMMARY | 2023-09-24 04:39 | XMS_ITS | Encounter Summary ---
Author Organization [facility] Address [address] [place] [address] Care Team Providers Care Dye Machine Tender Name Role Phone Unknown, Provider Primary Care Provider [phone] Reason for Visit * Reason Comments Eye Problem * Consult, Test and Treat (Routine) - Receiving Office to Obtain Authorization Specialty Diagnoses / Procedures Referred By Zoya juarez Referred To Contact Ophthalmology Diagnoses Other disorders of lacrimal system Linwood Becker MD [address] [place] [address] Whitley Elias MD [address] [place] [phone] Referral ID Status Reason Start Date Expiration Date Visits Requested Visits Authorized [id number] Receiving Office to Obtain Authorization 1 1 Encounter Details Date Type Department Care Team (Late st Contact Info) Description 06/28/2021 10:15 EDT Office Visit [facility] Ophthalmology - [address] [phone] Whitley Elias MD [address] [place] [phone] Social History Tobacco Use Types Packs/Day [...] Right eye medial canthal nodular lesion per [facility]. Bump nasally inner corner [...] Right eye medial canthal nodular lesion per [facility]. Bump nasally inner corner [...] Thyroid problems Hematologic: NL Immunologic: Drug Allergy Commercial Loan Administrator: Exposures: Other: Attestation: Allergies include: Patient has [...] my own HPI and have reviewed the peoples hospital's ROS as well. I personally completed [...] Visit [facility] Dermatology 3rd Floor [facility] [address] [place] [address] Nikita Kumari PA-C [address] [facility], [facility], Level [address] [place] [phone] documented as of this encounter Visit Diagnoses [...] reactive Round and rusty ctive Care Teams Dye Machine Tender Relationship Specialty Start Date End Date Unknown, Provider, PCP - General 01/25/21 12/02/21 documented as of this encounter
--- OUTSIDE RECORDS SUMMARY | 2023-09-24 04:39 | XMS_ITS | Encounter Summary ---
Author Organization [facility] Address [facility] [place] [address] Care Team Providers Care Sexual Abuse Counsellor Name Role Phone Jinny Camacho ZAINAB Primary Care Provider [phone] Encounter Details Date Type Department Care Team (Late st Contact Info) Description 11/11/2022 11:30 AM EDT Office [place] [address] Gurdeep Duenas MD [facility] [place] [address] Graves disease; Graves' orbitopathy Social History Tobacco [...] Duenas MD - 11/11/2022 11:[address] [facility] Endocr[facility]ology Clinic Follow up Patient [...] in 3 months, to be done at [facility], and have her follow up with [...] orders and on documentation. Gurdeep Duenas MD [employer] Engineermaintenance controller Endocrinology Section [facility] documented in this encounter Plan [...] T3, Total 174 80 - 200 ng/dL [facility] Blood 11/11/2022 12:2 2 PM EDT 11/11/2022 12:26 PM EDT Narrative Resulting Agency Comment Spec In Lab Gurdeep Duenas MD CHEMISTRY ORDERABLES Performing Organization Address City/[facility]/ZIP Co de Phone Number [facility] [place] [address] * (ABNORMAL) T4, free (11/11/2022 12:22 PM EDT) Free T4 0.82(L) 0.93 - 1.70 ng/dL [facility] Comment: Reference Interval (ng/dL): Females: ??First Trimester: 0.97-1.68 ??Second Trimester: 0.77-1.51 ??Third Trimester: 0.77-1.49 Blood 11/11/2022 12:2 2 PM EDT 11/11/2022 12:26 PM EDT Narrative Resulting Agency Comment Spec In Lab Gurdeep Duenas MD CHEMISTRY ORDERABLES Performing Organization Address [facility] Co de Phone Number [facility] [place] [address] * (ABNORMAL) TSH (11/11/2022 12:22 PM EDT) TSH 0.22(L) 0.27 - 4.20 mcIU/mL [facility] Comment: Reference Interval (mcIU/mL): Females: ??First Trimester: 0.23-3.88 ??Second Trimester: 0.22-3.90 ??Third Trimester: 0.44-4.66 Blood 11/11/2022 12:2 2 PM EDT 11/11/2022 12:26 PM EDT Narrative Resulting Agency Comment Spec In Lab Gurdeep Duenas MD CHEMISTRY ORDERABLES Performing Organization Address City/[facility]/ZIP Co de Phone Number [facility] [place] [address] documented in this encounter Visit Diagnoses Diagnosis Graves disease Toxic diffuse goiter without mention of thyrotoxic crisis 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
--- OUTSIDE RECORDS SUMMARY | 2023-09-24 04:39 | XMS_ITS | Encounter Summary ---
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, unspecified thyrotoxicosis type Jinny Camacho APRN [address] [place] [address] Stevo Saucedo MD [facility] [place] [address] Referral ID Status Reason Start Date Expiration Date Visits Requested Visits Authorized [id number] Authorized Consult, Test & Treat PCP Updated and/or Approved 01/28/2023 01/28/2024 6 6 Encounter Details Date Type Department Care Team (Latest Contact Info) Description 01/28/2023 Transcribe Orders eDH Incoming Referrals [phone] Jinny Camacho APRN [address] [place], [place] [phone] Thyrotoxicosis without thyroid storm, unspecified thyrotoxicosis type [...] storm documented in this encounter Care Teams Payroll Auditor Relationship Specialty Start Date End Date Jinny Camacho, GREENHOUSE SUPERINTENDENT [address] [place] [address] PCP - General Internal Medicine 10/04/19 documented as of this encounter
--- OUTSIDE RECORDS SUMMARY | 2023-09-24 04:39 | XMS_ITS | Encounter Summary ---
Author Organization [facility] Address [address] [place] [address] Care Team Providers Care Account Support Associate Name Role Phone Unknown, Provider Primary Care Provider Encounter Details Date Type Department Care Team (Late st Contact Info) Description 12/02/2021 Orders Only [facility] Ophthalmology - [address] [phone] Whitley Elias MD [address] [place] [phone] Basal cell carcinoma (BCC) of right [...] Info) Description 10/27/2023 12:50 EDT Office Visit [facility] Dermatology 3rd Floor [address] [phone] Nikita Kumari PA-C [address] [place] [phone] documented as of this encounter Visit Diagnoses Diagnosis Basal cell carcinoma (BCC) of right upper eyelid- Primary documented in this encounter Orders Case Request Count Last Ordered Date First Orde red Date CASE REQUEST OPERATING ROOM 1 12/02/2021 documented in this encounter Care Teams Account Support Associate Relationship Specialty Start Date End Date Unknown, Provider, PCP - General 01/25/21 12/02/21 documented as of this encounter
--- OUTSIDE RECORDS SUMMARY | 2023-09-24 04:39 | XMS_ITS | Encounter Summary ---
Author Organization [facility] Address [address] [place] [address] Care Team Providers Care Torpedo Worker Name Role Phone Unknown, Provider Primary Care Provider [phone] Jinny Camacho SANDSTONE INSPECTOR REPAIRER Primary Care Provider [phone] Encounter Details Date Type Department Care Team (Late st Contact Info) Description 06/06/2020 Lab Requisition [facility] Pathology & Laboratory Medicine - [address] [address] Outr Resulting Lab, Provider Social History Tobacco [...] Visit [facility] Dermatology 3rd Floor [address] [address] Nikita Kumari PA-C [address] [place] [address], [facility] [address] [place] [phone] documented as of this encounter Procedures Procedure Name Priority Date/Time Associated Diagnosis Comments T3, TOTAL Routine 06/06/2020 10:27 EDT documented in this encounter Results * T3, TOTAL (06/06/2020 10:27 EDT) T3, Total 131 97 - 169 ng/dL 06/06/2020 17:09 EDT [facility] Blood VENOUS BLOOD / Unknown 06/06/2020 10:27 EDT 06/06/2020 16:22 EDT Provider Outr Resulting Lab CHEMISTRY & BLOOD GAS ORDERABLES [facility] [address] [place] [address] documented in this encounter Visit Diagnoses Not on filedocumented in this encounter Care Teams Torpedo Worker Relationship Specialty Start Date End Date Unknown, Provider, PCP - General 01/25/21 12/02/21 Jinny Camacho NP [address] [place] [address] PCP - General Family Medicine - Primary Care 12/03/21 documented as of this encounter
--- OUTSIDE RECORDS SUMMARY | 2023-09-24 04:39 | XMS_ITS | Encounter Summary ---
Author Organization [facility] Address [address] [place] [address] Care Team Providers Care Right Of Way Supervisor Name Role Phone Jinny Camacho APPLICATIONS PROGRAMMER ANALYST Primary Care Provider [phone] Reason for Visit * Reason Onset Date Comments Appointment Related 01/21/2022 Encounter Details Date Type Department Care Team (Late st Contact Info) Description 01/21/2022 Telephone [facility] Dermatology 3rd Floor [address] [phone] Dodie Patricia MD [address] [facility], [address] [place] [address] Appointment Related Social History Tobacco [...] [facility] D[facility]ology 3rd Floor [facility] [address] [place], [place] [address] Nikita Kumari PA-C [address] [facility], [address] [place] [phone] documented as of this encounter Visit Diagnoses Not on filedocumented in this encounter Care Teams Right Of Way Supervisor Relationship Specialty Start Date End Date Jinny Camacho NP [address] [place] [address] PCP - General Family Medicine - Primary Care 12/03/21 documented as of this encounter
--- OUTSIDE RECORDS SUMMARY | 2023-09-24 04:39 | XMS_ITS | Encounter Summary ---
Author Organization [facility] Address [facility] [place] [address] Care Team Providers Care Supervisor Felling Bucking Name Role Phone Jinny Camacho Wagner LAMB Primary Care Provider [phone] Reason for Referral * Diagnostic Test (Routine) - Closed Specialty Diagnoses / Procedures Referred By Zoya juarez Referred To Contact Diagnoses Bilateral carotid artery stenosis Procedures Carotid Duplex, Bilateral Anjali Martino APRN [facility] [place] [address] [facility] Vascular Lab [address] [place] [address] Referral ID Status Reason Start Date Expiration Date V isits Requested Visits Authorized [id number] Closed Specialty Service Requested 01/24/2022 01/24/2023 1 1 Encounter Details Date Type Department Care Team (Late st Contact Info) Description 01/24/2022 Orders Only [place] [phone] Anjali Martino APRN [facility] [place] [address] Bilateral carotid artery stenosis Social History Tobacco [...] Text Report Department: Vascular Surgery Lab Patient: [id number] (CAITLIN MARTE) CPT: 66515 Referring Physician: ANJALI MARTINO, JEWELRY ENGRAVER ?? Indications: ??Carotid stenosis at [facility], ? [...] documented in this encounter Care Teams Supervisor Felling Bucking Relationship Specialty Start Date End Date Jinny Camacho APRN [address] [place] [address] PCP - General Internal Medicine 10/04/19 documented as of this encounter
--- OUTSIDE RECORDS SUMMARY | 2023-09-24 04:39 | XMS_ITS | Encounter Summary ---
Author Organization [facility] Address [facility] [place] [address] Care Team Providers Care Talend Developer Name Role Phone Jinny Camacho ZAINAB Primary Care Provider [phone] Encounter Details Date Type Department Care Team (Late st Contact Info) Description 11/12/2022 Telephone [place] [address] Gurdeep Duenas MD [facility] [place] [address] Social History Tobacco Use Types Packs/Day Years [...] days. Repeat labs in 3 months at [facility] - orders sent. Gurdeep Duenas MD Wall Scraperquick mixer operator Endocrinology Section [facility] documented in this encounter Plan of Treatment Not on file documented as of this encounter Visit Diagnoses Not on filedocumented in this encounter Care Teams Talend Developer Relationship Specialty Start Date End Date Jinny Camacho, ZAINAB [address] [place] [address] PCP - General Internal Medicine 10/04/19 documented as of this encounter
--- OUTSIDE RECORDS SUMMARY | 2023-09-24 04:40 | XMS_ITS | Encounter Summary ---
Author Organization [facility] Address [facility] [place] [address] Care Team Providers Care Side Stitching Machine Operator Name Role Phone Jinny Camacho APRN Primary Care Provider [phone] Encounter Details Date Type Department Care Team (Late st Contact Info) Description 05/02/2021 Orders Only [place] [address] Roman Pizano MD [facility] [place] [address] Hyperthyroidism Social History Tobacco Use Types Packs/Day [...] storm documented in this encounter Care Teams Side Stitching Machine Operator Relationship Specialty Start Date End Date Jinny Camacho APRN [address] [place] [address] PCP - General Internal Medicine 10/04/19 documented as of this encounter
--- OUTSIDE RECORDS SUMMARY | 2023-09-24 04:40 | XMS_ITS | Encounter Summary ---
Author Organization [facility] Address [facility] [place] [address] Care Team Providers Care Toy Designer Name Role Phone Jinny Camacho DOOR GLASS INSTALLER Primary Care Provider [phone] Encounter Details Date Type Department Care Team (Late st Contact Info) Description 05/07/2021 10:30 AM EDT TH Visit (TeleHealth) [place] [address] Katie Acevedo DOOR GLASS INSTALLER [facility] [place] [address] Hyperthyroidism Social History Tobacco Use Types Packs/Day [...] followed by Dr. Pizano until his recent prison. Methimazole reduced to 10mg daily in July 2020 at her last visit. She has continued to take 10mg methimazole a day. Tookher last dose this morning, has not yet updated her labs. New jeanette Lisa in [place] Plan from previous visit note:Harinder 08/03/20 In [...] her local hospital in [facility]. ?? When I get the results I [...] and available tests, [facility] the patient on medications, and [...] storm documented in this encounter Care Teams Toy Designer Relationship Specialty Start Date End Date Jinny Camacho APRN [address] [place] [address] PCP - General Internal Medicine 10/04/19 documented as of this encounter
--- OUTSIDE RECORDS SUMMARY | 2023-09-24 04:40 | XMS_ITS | Encounter Summary ---
Author Organization [facility] [place] [address] Care Team Providers Care Senior Staff Consultant Name Role Phone Jinny Camacho APRN Primary Care Provider [phone] Encounter Details Date Type Department Care Team (Late st Contact Info) Description 05/23/2020 Ref[place] [address] Rachel Vallecillo Social History Tobacco Use Types [...] on filedocumented in this encounter Care Teams Senior Staff Consultant Relationship Specialty Start Date End Date Jinny Camacho APRN [address] [place] [address] PCP - General Internal Medicine 10/04/19 documented as of this encounter
--- OUTSIDE RECORDS SUMMARY | 2023-09-24 04:40 | XMS_ITS | Encounter Summary ---
Author Organization [facility] Address [facility] [place] [address] Care Team Providers Care Waitangi Tribunal Member Name Role Phone Jinny Camacho ZAINAB Primary Care Provider [phone] Encounter Details Date Type Department Care Team (Late st Contact Info) Description 08/03/2020 8:00 AM EDT TH Visit (TeleHealth) [place] [address] Roman Pizano MD [facility] [place] [place] [address] Hyperthyroidism Social History Tobacco Use Types Packs/Day [...] her local hospital in [facility]. When I get the results I [...] storm documented in this encounter Care Teams Waitangi Tribunal Member Relationship Specialty Start Date End Date Jinny Camacho APRN [address] [place] [address] PCP - General Internal Medicine 10/04/19 documented as of this encounter
--- OUTSIDE RECORDS SUMMARY | 2023-09-24 04:40 | XMS_ITS | Encounter Summary ---
Author Organization [facility] Address [facility] [place] [address] Care Team Providers Care Public Service Director Name Role Phone Jinny Camacho APRN Primary Care Provider [phone] Reason for Visit * Consultation (Routine) - Closed Specialty Diagnoses / Procedures Referred By Zoya t Referred To Contact Endocrinology Diagnoses Thyrotoxicosis, unspecified without thyrotoxic crisis or storm WEIGHT LOSS, ANXIETY, TSH <0.01, FT4 2.71 Jinny Camacho, ZAINAB [address] [place] [address] [facility] Endocrinology [address] [place] [address] Referral ID Status Reason Start Date Expiration Date V isits Requested Visits Authorized [id number] Closed Consult, Test & Treat [facility] PCP Updated and/or Approved 10/04/2019 10/03/2020 1 1 Encounter Details Date Type Department Care Team (Late st Contact Info) Description 10/06/2019 2:40 PM EDT Office [place] [address] Roman Pizano MD [facility] [place] [address] Hyperthyroidism Social History Tobacco Use [...] 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 Is not had 2 [...] T3, Total 272(H) 75 - 170 ng/dL [facility] Blood specimen (specimen) 10/06/2019 3:25 PM EDT 10/06/2019 3:39 PM EDT Narrative Resulting Agency Comment Spec In Lab Roman Pizano MD CHEMISTRY ORDERABLES Performing Organization Address [facility] Co de Phone Number [facility] [place] [address] * (ABNORMAL) T4, free (10/06/2019 3:25 PM EDT) Free T4 2.80(H) 0.93 - 1.70 ng/dL [facility] Blood specimen (specimen) 10/06/2019 3:25 PM EDT 10/06/2019 3:39 PM EDT Narrative Resulting Agency Comment Spec In Lab Roman Pizano MD CHEMISTRY ORDERABLES Performing Organization Address [facility]/ZIP Co de Phone Number [facility] [place] [address] * (ABNORMAL) Thyroid Stimulating Immunoglobulins (10/06/2019 3:25 PM EDT) TSI 7.56(H) <=0.55 IU/L [facility] Blood specimen (specimen) 10/06/2019 3:25 PM EDT 10/07/2019 7:46 AM EDT Narrative Resulting Agency Comment Spec In Lab Roman Pizano MD IMMUNOLOGY ORDERABLE S [facility] [place] [address] documented in this encounter Visit Diagnoses Diagnosis Hyperthyroidism Thyrotoxicosis without mention of goiter or other cause, without mention of thyrotoxic crisis or storm documented in this encounter Care Teams Public Service Director Relationship Specialty Start Date End Date Jinny Camacho, DOUGH MAKER [address] [place] [address] PCP - General Internal Medicine 10/04/19 documented as of this encounter
--- OUTSIDE RECORDS SUMMARY | 2023-09-24 04:40 | XMS_ITS | Encounter Summary ---
Author Organization [facility] Address [facility] [place] [address] Care Team Providers Care Music Writer Name Role Phone Jinny Camacho ZAINAB Primary Care Provider [phone] Reason for Visit * Reason Onset Date Comments Shortness of Breath 11/04/2019 Encounter Details Date Type Department Care Team (Late st Contact Info) Description 11/04/2019 Tele[place] [phone] Jeremías Shirley, RN Shortness of Breath Social [...] filedocumented in this encounter Care Teams Music Writer Relationship Specialty Start Date End Date Jinny Camacho APRN [address] [facility] [place] [address] PCP - General Internal Medicine 10/04/19 documented as of this encounter
--- OUTSIDE RECORDS SUMMARY | 2023-09-24 04:40 | XMS_ITS | Encounter Summary ---
Author Organization [facility] Address [facility] [place] [address] Care Team Providers Care Paint Grinder Name Role Phone Jinny Camacho ZAINAB Primary Care Provider [phone] Encounter Details Date Type Department Care Team (Late st Contact Info) Description 10/12/2019 Telephone [place] [address] Jeremías Shirley RN Social History Tobacco Use [...] She was also feeling tired out. Her FORGING PRESS LEVER TENDER decreased the atenolol to half a tab AM and PM. She started that yesterday and is still feeling tired. She also reports her FORGING PRESS LEVER TENDER did an EKG which they were going [...] on filedocumented in this encounter Care Teams Paint Grinder Relationship Specialty Start Date End Date Jinny Caamcho APRN [address] [facility] [place] [address] PCP - General Internal Medicine 10/04/19 documented as of this encounter
--- OUTSIDE RECORDS SUMMARY | 2023-09-24 04:40 | XMS_ITS | Encounter Summary ---
Author Organization [facility] Address [facility] [place] [address] Care Team Providers Care X Ray Service Engineer Name Role Phone Jinny Camacho APRN Primary Care Provider [phone] Encounter Details Date Type Department Care Team (Late st Contact Info) Description 11/27/2019 Orders [place] [address] Roman Pizano MD [facility] [address] Hyperthyroidism Social History Tobacco Use Types Packs/Day [...] storm documented in this encounter Care Teams X Ray Service Engineer Relationship Specialty Start Date End Date Jinny Camacho APRN [address] [place] [address] PCP - General Internal Medicine 10/04/19 documented as of this encounter
--- OUTSIDE RECORDS SUMMARY | 2023-09-24 04:40 | XMS_ITS | Encounter Summary ---
Author Organization [facility] Address [facility] [place] [address] Care Team Providers Care [employer] Assistant Manager Name Role Phone Jinny Camacho APRN Primary Care Provider [phone] Encounter Details Date Type Department Care Team (Late st Contact Info) Description 10/12/2019 Orders [place] [address] Roman Pizano MD [facility] [place] [address] Social History Tobacco Use Types Packs/Day Years [...] on filedocumented in this encounter Care Teams [employer] Assistant Manager Relationship Specialty Start Date End Date Jinny Camacho APRN [address] [place] [address] PCP - General Internal Medicine 10/04/19 documented as of this encounter
--- OUTSIDE RECORDS SUMMARY | 2023-09-24 04:40 | XMS_ITS | Encounter Summary ---
Author Organization [facility] Address [facility] [place] [address] Care Team Providers Care Fire Marshal Refinery Name Role Phone Jinny Camacho ZAINBA Primary Care Provider [phone] Encounter Details Date Type Department Care Team (Late st Contact Info) Description 10/06/2019 Orders [place] [address] Roman Pizano MD [facility] [place] [address] Hyperthyroidism Social History Tobacco Use Types Packs/Day [...] 3:25 PM EDT) TSI 7.56(H) <=0.55 IU/L [facility] Blood specimen (specimen) 10/06/2019 3:25 PM EDT 10/07/2019 7:46 AM EDT Narrative Resulting Agency Comment Spec In Lab Roman Pizano MD IMMUNOLOGY ORDERABLE S [facility] [place] [address] * (ABNORMAL) T3 Total (10/06/2019 3:25 PM EDT) T3, Total 272(H) 75 - 170 ng/dL [facility] Blood specimen (specimen) 10/06/2019 3:25 PM EDT 10/06/2019 3:39 PM EDT Narrative Resulting Agency Comment Spec In Lab Roman Pizano MD CHEMISTRY ORDERABLES Performing Organization Address City/[facility]/ZIP Co de Phone Number [facility] [place] [address] * (ABNORMAL) T4, free (10/06/2019 3:25 PM EDT) Free T4 2.80(H) 0.93 - 1.70 ng/dL [facility] Blood specimen (specimen) 10/06/2019 3:25 PM EDT 10/06/2019 3:39 PM EDT Narrative Resulting Agency Comment Spec In Lab Roman Pizano MD CHEMISTRY ORDERABLES Performing Organization Address City/[facility] Co de Phone Number [facility] [place] [address] documented in this encounter Visit Diagnoses Diagnosis Hyperthyroidism Thyrotoxicosis without mention of goiter or other cause, without mention of thyrotoxic crisis or storm documented in this encounter Care Teams Fire Marshal Refinery Relationship Specialty Start Date End Date Jinny Camacho APRN [address] [facility] [address] PCP - General Internal Medicine 10/04/19 documented as of this encounter
--- OUTSIDE RECORDS SUMMARY | 2023-09-24 04:40 | XMS_ITS | Encounter Summary ---
Author Organization [facility] Address [facility] [place] [address] Care Team Providers Care Dairy Laboratory Technician Name Role Phone Jinny Camacho ZAINAB Primary Care Provider [phone] Encounter Details Date Type Department Care Team (Late st Contact Info) Description 05/31/2020 9:40 AM EDT TH Visit (TeleHealth) [place] [address] Roman Pizano MD [facility] [place] [place] [address] Hyperthyroidism Social History Tobacco Use Types Packs/Day [...] check some repeat thyroid function tests at [facility]. I told her I would get [...] to get some blood test done in [place] took 30 minutes. documented in this encounter Plan of Treatment Not on file documented as of this encounter Visit Diagnoses Diagnosis Hyperthyroidism Thyrotoxicosis without mention of goiter or other cause, without mention of thyrotoxic crisis or storm documented in this encounter Care Teams Dairy Laboratory Technician Relationship Specialty Start Date End Date Jinny Camacho APRN [address] [place] [address] PCP - General Internal Medicine 10/04/19 documented as of this encounter
--- OUTSIDE RECORDS SUMMARY | 2023-09-24 04:40 | XMS_ITS | Encounter Summary ---
Author Organization [facility] Address [facility] [place] [address] Care Team Providers Care Nutrition Aide Name Role Phone Jinny Camacho ZAINAB Primary Care Provider [phone] Encounter Details Date Type Department Care Team (Late st Contact Info) Description 11/04/2019 Orders [place] [address] Roman Pizano MD [facility] [place] [address] Hyperthyroidism Social History Tobacco Use Types Packs/Day [...] EDT) TSH 0.07(L) 0.27 - 4.20 mcIU/mL [facility] Blood specimen (specimen) 11/24/2019 4:04 PM EDT 11/24/2019 5:20 PM EDT Narrative Resulting Agency Comment Spec In Lab Roman Pizano MD CHEMISTRY ORDERABLES [facility] [place] [address] * T3 Total (11/24/2019 4:04 PM EDT) T3, Total 101 75 - 170 ng/dL [facility] Blood specimen (specimen) 11/24/2019 4:04 PM EDT 11/24/2019 5:20 PM EDT Narrative Resulting Agency Comment Spec In Lab Roman Pizano MD CHEMISTRY ORDERABLES Performing Organization Address City/[facility]/ZIP Co de Phone Number [facility] [place] [address] * (ABNORMAL) T4, free (11/24/2019 4:04 PM EDT) Free T4 0.75(L) 0.93 - 1.70 ng/dL [facility] Blood specimen (specimen) 11/24/2019 4:04 PM EDT 11/24/2019 5:20 PM EDT Narrative Resulting Agency Comment Spec In Lab Roman Pizano MD CHEMISTRY ORDERABLES Performing Organization Address City/[facility]/ZIP Co de Phone Number [facility] [place] [address] documented in this encounter Visit Diagnoses Diagnosis Hyperthyroidism Thyrotoxicosis without mention of goiter or other cause, without mention of thyrotoxic crisis or storm documented in this encounter Care Teams Nutrition Aide Relationship Specialty Start Date End Date Jinny Camacho APRN [address] [facility] [place] [address] PCP - General Internal Medicine 10/04/19 documented as of this encounter
--- OUTSIDE RECORDS SUMMARY | 2023-09-24 04:40 | XMS_ITS | Encounter Summary ---
Author Organization [facility] [place] [address] Care Team Providers Care Clock Mechanic Name Role Phone Jinny Camacho APRN Primary Care Provider [phone] Encounter Details Date Type Department Care Team (Late st Contact Info) Description 05/02/2021 Telephone [place] [address] Rachel Vallecillo Social History Tobacco Use Types [...] on filedocumented in this encounter Care Teams Clock Mechanic Relationship Specialty Start Date End Date Jinny Camacho APRN [address] [place] [address] PCP - General Internal Medicine 10/04/19 documented as of this encounter
--- OUTSIDE RECORDS SUMMARY | 2023-09-24 04:40 | XMS_ITS | Encounter Summary ---
Author Organization [facility] [address] Care Team Providers Care Access Manager Name Role Phone Jinny Camacho APRN Primary Care Provider [phone] Encounter Details Date Type Department Care Team (Late st Contact Info) Description 01/21/2022 Ancillary Procedure [place] [address] Jinny Camacho APRN [address] [place] [address] Social History Tobacco Use Types Packs/Day Years [...] Ultrasound Study (01/21/2022 12:00 AM EST) Narrative [facility] - 01/23/2022 7:25 PM EST This exam is auto-finalizing. It's purpose is for storage only. Jinny Camacho APRN IMG FILM LIBRARY ORD ERABLES [place], [place] documented in this encounter Visit Diagnoses Not on filedocumented in this encounter Care Teams Access Manager Relationship Specialty Start Date End Date Jinny Camacho, ZAINAB [address] [place] [address] PCP - General Internal Medicine 10/04/19 documented as of this encounter
--- OUTSIDE RECORDS SUMMARY | 2023-09-24 04:40 | XMS_ITS | Encounter Summary ---
[place] [address] Care Team Providers Care Esol Teacher Name Role Phone Jinny Camacho APRN Primary Care Provider [phone] Reason for Visit * Reason Onset Date Comments Medication Refill 04/22/2021 Encounter Details Date Type Department Care Team (Late st Contact Info) Description 04/22/2021 Refill [place] [address] Jeremías Shirley, RN Social History Tobacco Use [...] on filedocumented in this encounter Care Teams Esol Teacher Relationship Specialty Start Date End Date Jinny Camacho APRN [address] [place] [address] PCP - General Internal Medicine 10/04/19 documented as of this encounter
--- OUTSIDE RECORDS SUMMARY | 2023-09-24 04:40 | XMS_ITS | Encounter Summary ---
Author Organization [facility] Address [facility] [place] [address] Care Team Providers Care Accounting Manager Name Role Phone Jinny Camacho APRN Primary Care Provider [phone] Encounter Details Date Type Department Care Team (Late st Contact Info) Description 08/03/2020 Orders [place] [address] Roman Pizano MD [facility] [place] [address] Hyperthyroidism Social History Tobacco Use Types Packs/Day [...] storm documented in this encounter Care Teams Accounting Manager Relationship Specialty Start Date End Date Jinny Camacho APRN [address] [place] [address] PCP - General Internal Medicine 10/04/19 documented as of this encounter
--- OUTSIDE RECORDS SUMMARY | 2023-09-24 04:40 | XMS_ITS | Encounter Summary ---
Author Organization [facility] [place] [address] Care Team Providers Care Product Safety Administrator Name Role Phone Jinny Camacho APRN Primary Care Provider [phone] Encounter Details Date Type Department Care Team (Late st Contact Info) Description 10/07/2019 Telephone [place] [address] Mariano Hamm Social History Tobacco Use Types [...] filedocumented in this encounter Care Teams Product Safety Administrator Relationship Specialty Start Date End Date Jinny Camacho APRN [address] [place] [address] PCP - General Internal Medicine 10/04/19 documented as of this encounter
--- OUTSIDE RECORDS SUMMARY | 2023-09-24 04:40 | XMS_ITS | Encounter Summary ---
Author Organization [facility] Address [facility] [place] [address] Care Team Providers Care Cook Boat Name Role Phone Jinny Camacho APRN Primary Care Provider [phone] Encounter Details Date Type Department Care Team (Late st Contact Info) Description 05/31/2020 Orders [place] [address] Roman Pizano MD [facility] [place] [address] Hyperthyroidism Social History Tobacco Use Types Packs/Day [...] storm documented in this encounter Care Teams Cook Boat Relationship Specialty Start Date End Date Jinny Camacho APRN [address] [place] [address] PCP - General Internal Medicine 10/04/19 documented as of this encounter
--- OUTSIDE RECORDS SUMMARY | 2023-09-24 04:40 | XMS_ITS | Encounter Summary ---
[place] [address] Care Team Providers Care Application Integration Architect Name Role Phone Jinny Camacho APRN Primary Care Provider [phone] Reason for Visit * Reason Onset Date Comments Medication Refill 04/26/2021 Encounter Details Date Type Department Care Team (Late st Contact Info) Description 04/26/2021 Refill [place] [phone] Vivi Wright I Social History Tobacco Use [...] on filedocumented in this encounter Care Teams Application Integration Architect Relationship Specialty Start Date End Date Jinny Camacho APRN [address] [place] [address] PCP - General Internal Medicine 10/04/19 documented as of this encounter
--- OUTSIDE RECORDS SUMMARY | 2023-09-24 04:40 | XMS_ITS | Encounter Summary ---
Author Organization [facility] Address [facility] [place] [address] Care Team Providers Care Utility Lineman Name Role Phone Jinny Camacho ZAINAB Primary Care Provider [phone] Encounter Details Date Type Department Care Team (Late st Contact Info) Description 11/24/2019 3:00 PM EDT Office [place] [address] Roman Pizano MD [facility] [place] [address] Hyperthyroidism Social History Tobacco Use Types Packs/Day [...] 20 of the 25-minute appointment was spent [id number] discussing the issues above. documented in this [...] MD CHEMISTRY ORDERABLES [facility] [place] [address] * T3 Total (11/24/2019 4:04 PM EDT) T3, Total 101 75 - 170 ng/dL [facility] Blood specimen (specimen) 11/24/2019 4:04 PM EDT 11/24/2019 5:20 PM EDT Narrative Resulting Agency Comment Spec In Lab Roman Pizano MD CHEMISTRY ORDERABLES Performing Organization Address City/[facility]/ZIP Co de Phone Number [facility] [place] [address] * (ABNORMAL) T4, free (11/24/2019 4:04 PM EDT) Free T4 0.75(L) 0.93 - 1.70 ng/dL [facility] Blood specimen (specimen) 11/24/2019 4:04 PM EDT 11/24/2019 5:20 PM EDT Narrative Resulting Agency Comment Spec In Lab Roman Pizano MD CHEMISTRY ORDERABLES Performing Organization Address [facility] Co de Phone Number [facility] [place] [address] documented in this encounter Visit Diagnoses Diagnosis Hyperthyroidism 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
--- OUTSIDE RECORDS SUMMARY | 2023-09-24 04:40 | XMS_ITS | Encounter Summary ---
Author Organization [facility] Address [facility] [place] [address] Care Team Providers Care Utility Locator Name Role Phone Jinny Camacho APRN Primary Care Provider [phone] Encounter Details Date Type Department Care Team (Late st Contact Info) Description 06/25/2020 Orders Only [place] [address] Roman Pizano MD [facility] [place] [address] Hyperthyroidism Social History Tobacco Use Types Packs/Day [...] documented in this encounter Care Teams Utility Locator Relationship Specialty Start Date End Date Jinny Camacho APRN [address] [place] [address] PCP - General Internal Medicine 10/04/19 documented as of this encounter
--- OUTSIDE RECORDS SUMMARY | 2023-09-24 04:40 | XMS_ITS | Encounter Summary ---
Author Organization [facility] Address [facility] [place] [address] Care Team Providers Care Dog Food Shredder Operator Name Role Phone Jinny Camacho ZAINAB Primary Care Provider [phone] Encounter Details Date Type Department Care Team (Late st Contact Info) Description 06/19/2020 Telephone [place] [address] Jeremías Shirley RN Social History Tobacco Use [...] this letter to Jinny Camacho who is [facility]'s primary care provider. * Telephone Encounter - [...] filedocumented in this encounter Care Teams Dog Food Shredder Operator Relationship Specialty Start Date End Date Jinny Camacho APRN [address] [facility] [address] PCP - General Internal Medicine 10/04/19 documented as of this encounter
[2023-09-24 10:40] LABS: ALT 22 U/L (14-59); AST 21 U/L (15-37); Albumin 2.8 g/dL (3.4-5.0); Alkaline Phosphatase 160 U/L (46-116); Anion Gap 11.7 mmol/L (3-11); BUN 7 mg/dL (7-18); Bilirubin, Total 0.27 mg/dL (0.2-1.0); CO2 24.3 mmol/L (21.0-32.0); Calcium 8.7 mg/dL (8.5-10.1); Calculated LDL 58 mg/dL (<100); Chloride 104 mmol/L (98-107); Cholesterol 121 mg/dL (<200); Estimated GFR 56.25 (mL/min/1.73m2); Glucose 119 mg/dL (74-106); HDL Cholesterol 45 mg/dL (40-60); Potassium 3.8 mmol/L (3.5-5.1); Sodium 140 mmol/L (136-145); TSH (W/Ref FT4) 1.78 uIU/mL (0.36-3.74); Total Protein 6.1 g/dL (6.4-8.2); Triglyceride 94 mg/dL (<150)
== END 2023-09-24 04:38 | disposition home or self-care (01) ==
LOC: LBO 04:37
PROVIDERS: PCP Nurse Practitioner; Referring Provider Nurse Practitioner; Visit Provider Nurse Practitioner
DX: I10 Essential (primary) hypertension (principal); E05.00 Thyrotoxicosis with diffuse goiter without thyrotoxic crisis or storm; E78.00 Pure hypercholesterolemia, unspecified; R73.03 Prediabetes
CPT/HCPCS: 36415; 80053; 80061; 83036; 84443

== ENCOUNTER 2024-06-27 10:44 | Emergency (ER) | payer MEDICARE, SELFPAY ==
[2024-06-27] VITALS (21 sets, daily range): BP systolic 105–147; BP diastolic 48–78; PULSE 66–86; RESP 13–18; TEMP 36.7; O2SAT 63–98
--- NOTE | 2024-06-27 10:45 | RT.EKG_ITS ---
APPROVED REPORT Exam: Resting ECG Reason for Exam: weakness Patient Location: E HR:81 bpm ECG Measurements Heart Rate 81 AXIS PA 161 P 20 QRSd 96 QRS -5 QT 437 T 58 QTc 508 Conclusion Sinus rhythm \81 normal axis long qtc 508 no stemi
--- NOTE | 2024-06-27 11:00 | DI.CT_ITS ---
Exam(s) CT HEAD WO EXAM: CT HEAD WO CLINICAL HISTORY: fall. TECHNIQUE: Imaging Protocol: Axial computed tomography images with coronal and sagittal reformatted images were created and reviewed COMPARISON: No exams were available for comparison FINDINGS: There are no skull fractures. There is fluid in the partially visualized bilateral maxillary sinuses. Sphenoid sinuses and frontal sinuses are clear. Visualized mastoid air cells are clear. There is no evidence of intracranial hemorrhage, mass effect, or shift of midline structures. There are no extra-axial fluid collections. The ventricles are not enlarged or shifted and there is no blo od within the ventricular system nor within the basal cisterns. There is abundant bilateral periventricular hypodensity consistent with chronic small vessel disease. IMPRESSION: There is abundant bilateral periventricular hypodensity consistent with chronic small vessel disease. No evidence of intracranial hemorrhage, given the trauma history here. No skull fractures evident. Report called by myself to ER physician 06/27/2024 at 12:05 p.m. RADIATION DOSE DELIVERED: 797.78mGy.cm Total DLP DATA REPOSITORY: All CT scans at this facility are submitted to the National Radiology Data Registry (NRDR) Dose Index Registry (DIR) with the [employer] (ACR). RADIATION OPTIMIZATION: All CT scans at this facility use at least one of these dose optimization te chniques: automated exposure control; mA and/or kV adjustment per patient size (includes targeted exa ms where dose is matched to clinical indication); or iterative reconstruction.
--- NOTE | 2024-06-27 11:00 | DI.RAD_ITS ---
Exam(s) XR SHOULDER RT COMPLETE 2+V EXAM: XR SHOULDER RT COMPLETE 2+V CLINICAL HISTORY: right shoulder injury. TECHNIQUE: 2D digital imaging was performed. COMPARISON: No exams were available for comparison FINDINGS: 3 views No evidence of fracture or dislocation no abnormal soft tissue calcifications the subacromial space. There mild degenerative changes in the glenohumeral joint. Moderate degenerative changes in the AC joint including downgoing osteophytes on both sides of this joint. Clavicle is intact. There is a calcific density projected over the proximal diaphysis of the humerus which may be a benig n-appearing bone lesion or possibly a loose body within the long head biceps tendon sheath. IMPRESSION: No acute fracture or dislocation. Degenerative changes as above. DATA REPOSITORY: RADIATION DOSE DELIVERED:
[2024-06-27 11:15] LABS: Bilirubin Negative (Negative); Blood Negative (Negative); Clarity Clear (Clear); Glucose 100 mg/dL (Negative); Ketones Negative (Negative); Leukocyte Esterase Trace (Negative); Nitrite Negative (Negative); Specific Gravity 1.015 (1.005-1.025)
[2024-06-27 11:22] LABS: Bacteria Negative HPF (Negative); Crystals Negative HPF (Negative); Epithelial Cells Rare HPF (Negative); Mucus Trace (Negative); RBC Negative HPF (0-2)
[2024-06-27 11:23] LABS: C & S Indicated? No; Casts 0-2 Hyaline LPF (Negative); WBC 0-2 HPF (0-5)
[2024-06-27 11:31] LABS: *AMPHETAMINES SCREEN URINE Negative (Negative); *BARBITURATES SCREEN URINE Negative (Negative); *BENZODIAZEPINES SCREEN URINE Negative (Negative); Cannabinoids THC Negative (Negative); Cocaine Screen,Urine Negative (Negative); METHADONE URINE SCREEN Negative (Negative); OPIATES URINE SCREEN Negative (Negative)
[2024-06-27 11:31] LABS: Abs Immature Grans 0.04 10^3/uL (0.0-0.06); Absolute Basophil Count 0.03 10^3/uL (0.0-0.2); Absolute Lymphocyte Count 2.77 10^3/uL (1.2-3.4); Absolute Monocyte Count 1.17 10^3/uL (0.1-0.8); Absolute Neutrophil Count 6.21 10^3/uL (1.2-6.7); Basophils % 0.3 %; HCT 38.3 % (36.0-46.0); HGB 12.5 g/dL (11.2-15.7); Immature Grans % 0.4 %; Lymphocytes % 26.8 %; MCH 29.7 pg (27.0-33.0); MCHC 32.6 % (32.0-36.0); MCV 91 fL (80-95); MPV 9.8 fL (8.0-11.0); Monocytes % 11.3 %; Neutrophils % 60.2 %; Platelet Count 206 10^3/uL (130-400); RBC 4.21 10^6/uL (3.93-5.22); RDW 13.9 % (11.7-14.6); RDW-SD 46.8 fL; WBC 10.32 10^3/uL (4.4-10.8)
[2024-06-27 11:34] LABS: Tricyclic Antidepressants Positive (Negative)
[2024-06-27 11:43] LABS: INR 1.1 (0.9-1.1); Prothrombin Time 10.9 sec (9.1-11.1)
[2024-06-27 11:50] LABS: Creatine Kinase 83 U/L (26-192)
[2024-06-27 11:59] LABS: ALT 20 U/L (14-59); AST 17 U/L (15-37); Albumin 3.4 g/dL (3.4-5.0); Alkaline Phosphatase 173 U/L (46-116); Anion Gap 10.7 mmol/L (3-11); BUN 18 mg/dL (7-18); Bilirubin, Total 1.1 mg/dL (0.2-1.0); CO2 25.3 mmol/L (21.0-32.0); Chloride 103 mmol/L (98-107); Estimated GFR 56.25 (mL/min/1.73m2); Glucose 123 mg/dL (74-106); Lipase 25 U/L (<78); Magnesium 1.9 mg/dL (1.8-2.4); NT-proBNP 2037 pg/mL (<300); Potassium 3.7 mmol/L (3.5-5.1); Sodium 139 mmol/L (136-145); TSH 8.51 uIU/mL (0.36-3.74); Total Protein 7.5 g/dL (6.4-8.2); Troponin I 12 ng/L (<or=51)
[2024-06-27 12:00] LABS: ETHANOL BLOOD < 3.0 mg/dL (<10)
--- NOTE | 2024-06-27 13:38 | W.ED.GENAD ---
Discharge Plan Disposition Patient Disposition: Home Discharge Details Clinical Impression: Fall, Forgetfulness, Contusion of right shoulder Primary Care Provider: Jinny Camacho ED Provider: Cholo Leger Home Meds and New Rx's Prescriptions: No Action methimazole 10 mg tablet See Rx Instructions .ROUTE .COMPLEX Qty: 135 3RF Dose Instruction: TAKE 1 TABLET BY MOUTH DAILY Rx Instructions: TAKE 1.5 TABLET BY MOUTH DAILY electrolytes-dextrose [Pedialyte] Solution 10 ml PO 4-6XD PRN (Reason: diarrhea; dehydration) Qty: 1000 1RF Rx Instructions: Take while dehydrated x 2 weeks loperamide 2 mg capsule 2 mg PO QID PRN (Reason: loose stool) Qty: 10 0RF Rx Instructions: Pt taking OTC x 4-5 days acetaminophen [Acetaminophen Extra Strength] 500 MG tablet 500 mg PO Q4H PRN Qty: 2 Patient Comments: Not taking at present. CG atorvastatin 40 mg tablet 40 mg PO DAILY Qty: 90 3RF carvedilol 3.125 mg tablet 3.125 mg PO BID Qty: 180 3RF fluoxetine 20 mg capsule 20 mg PO HS Qty: 90 3RF furosemide 20 mg tablet 10 mg PO BID@0830,1600 Qty: 90 3RF potassium chloride 8 mEq capsule, extended release See Rx Instructions PO DAILY Qty: 90 3RF Rx Instructions: orally daily; 2 tabs daily odd days, 3 tabs daily on even days. Discharge Instructions Additional Instructions: Emergency department lab work and imaging are all unremarkable. You were evaluated by physical therapy. And it is recommended that you always use your walker to ambulate. Please follow-up with your primary care provider to discuss any home health needs you might have make sure that you are eating regular meals and sleeping. You must take care of yourself in order to help take care of your daughter. HPI General Date/Time Provider Initiated Documentation: 06/27/24 10:53. Limitations to Documentation: no limitations. Information obtained by: patient and family (Neighbor). HPI Narrative: 83-year-old female with past medical history of diabetes, CHF, hypertension presents for evaluation after a fall this morning. Patient reports that she got out of bed too quickly and fell to the ground. She denies that she hit her head or had any injuries from the fall. She states that she did not lose consciousness. Her neighbors son went over and picked her up off the ground. They report that she had a fall earlier this week as well and the patient states that that was because she was at an [employer]obody garage and tripped over something and fell to the ground requiring assistance getting up. She reports pain in her right shoulder after that fall. She reports that a few days ago, she was driving back from [place] when she missed a turn and was going in the wrong direction on the road. She states that the signs were very confusing. She was pulled over by police. The neighbor is concerned that all of these things are indicative that the patient is being confused. She does live at home with her daughter who is also elderly and not in good health. Recently had a surgery and is unable to help care for the patient. The patient per the neighbor is also having difficulty caring for the daughter. The patient has no complaints at this time. Reports that she is eating and drinking well, she just kind of lost her balance for these falls. She denies any chest pain, shortness of breath, head injury. Related Data Home Medications ?Medication ?Instructions ?Recorded ?Confirmed acetaminophen 500 mg tablet 500 mg PO Q4H PRN ##2 12/21/12 06/27/24 (Acetaminophen Extra Strength) electrolytes-dextrose oral 10 ml PO 4-6XD PRN diarrhea; 09/11/23 06/27/24 solution (Pedialyte oral solution) dehydration #1,000 mL loperamide 2 mg capsule 2 mg PO QID PRN loose stool #10 09/11/23 06/27/24 caps atorvastatin 40 mg tablet 40 mg PO DAILY #90 tab-caps 01/14/24 06/27/24 carvedilol 3.125 mg tablet 3.125 mg PO BID #180 tabs 01/14/24 06/27/24 fluoxetine 20 mg capsule 20 mg PO HS #90 tabs 01/14/24 06/27/24 furosemide 20 mg tablet 10 mg (1/2 x 20 mg) PO 01/14/24 06/27/24 BID@0830,1600 #90 tabs methimazole 10 mg tablet See Rx Instructions .Route 01/18/24 06/27/24 .COMPLEX #135 tabs potassium chloride 8 mEq See Rx Instructions PO DAILY #90 06/15/24 06/27/24 capsule,extended release caps Previous Rx's ?Medication ?Instructions ?Recorded electrolytes-dextrose oral 10 ml PO 4-6XD PRN diarrhea; 09/11/23 solution (Pedialyte oral solution) dehydration #1,000 mL loperamide 2 mg capsule 2 mg PO QID PRN loose stool #10 09/11/23 caps atorvastatin 40 mg tablet 40 mg PO DAILY #90 tab-caps 01/14/24 carvedilol 3.125 mg tablet 3.125 mg PO BID #180 tabs 01/14/24 fluoxetine 20 mg capsule 20 mg PO HS #90 tabs 01/14/24 furosemide 20 mg tablet 10 mg (1/2 x 20 mg) PO 01/14/24 BID@0830,1600 #90 tabs methimazole 10 mg tablet See Rx Instructions .Route 01/18/24 .COMPLEX #135 tabs potassium chloride 8 mEq See Rx Instructions PO DAILY #90 06/15/24 capsule,extended release caps Allergies Allergy/AdvReac Type Severity Reaction Status Date / Time Sulfa (Sulfonamide Allergy Unknown ? Verified 06/27/24 10:50 Antibiotics) Penicillins Allergy RASH Verified 06/27/24 10:50 clindamycin AdvReac Severe Diarrhea Verified 06/27/24 10:50 meperidine AdvReac Unknown VOMITING Verified 06/27/24 10:50 hydrocodone bitartrate (From AdvReac NAUSEA/VOMI Verified 06/27/24 10:50 Vicodin) TING propoxyphene napsylate (From AdvReac NAUSEA/VOMI Verified 06/27/24 10:50 Darvocet-N 100) TING General Stated Complaint: GenMedical CHINTAN: 3 Exam Narrative Exam Narrative: Review of Systems: All systems reviewed & are unremarkable except as noted in HPI and below Well-developed, no acute distress NCAT PERRL, normal conjunctiva RRR Unlabored respiratory effort Nondistended abdomen Right shoulder with anterior contusion noted, no deformity no focal neurologic deficits Course Vital Signs Vital signs: Vital Signs Temperature 36.7 C 06/27/24 10:45 Pulse 81 06/27/24 10:45 Respiratory Rate 14 06/27/24 10:45 Blood Pressure 128/78 06/27/24 10:45 Pulse Oximetry 95 06/27/24 10:45 Temperature 36.7 C 06/27/24 10:45 Temperature Source Oral 06/27/24 10:45 Pulse 70 06/27/24 13:31 Pulse 66 06/27/24 11:45 Respiratory Rate 13 06/27/24 11:45 Respiratory Effort Normal, Non-Labored 06/27/24 11:09 Respiratory Depth Normal 06/27/24 11:09 Respiratory Pattern Normal 06/27/24 11:09 Blood Pressure 138/66 06/27/24 13:31 Blood Pressure Mean 90 06/27/24 13:31 Blood Pressure Position Sitting 06/27/24 10:45 Pulse Oximetry 92 06/27/24 13:31 Oxygen Delivery Method Room Air 06/27/24 10:45 Oxygen Flow Rate 0 06/27/24 10:45 Lab/Test Results Lab/Test Results: Laboratory Tests Range/Units 06/27/24 06/27/24 11:00 11:20 WBC (4.4-10.8) 10^3/uL 10.32 RBC (3.93-5.22) 10^6/uL 4.21 Hgb (11.2-15.7) g/dL 12.5 Hct (36.0-46.0) % 38.3 MCV (80-95) fL 91 MCH (27.0-33.0) pg 29.7 MCHC (32.0-36.0) % 32.6 RDW (11.7-14.6) % 13.9 Plt Count (130-400) 10^3/uL 206 MPV (8.0-11.0) fL 9.8 Immature Gran % % 0.4 Neutrophils % % 60.2 Lymphocytes % % 26.8 Monocytes % % 11.3 Eosinophils % % 1.0 Basophils % % 0.3 Nucleated RBC % (0.0-0.3) % 0.0 Absolute Neutrophils (1.2-6.7) 10^3/uL 6.21 Absolute Lymphocytes (1.2-3.4) 10^3/uL 2.77 Absolute Monocytes (0.1-0.8) 10^3/uL 1.17 H Absolute Eosinophils (0.0-0.7) 10^3/uL 0.10 Absolute Basophils (0.0-0.2) 10^3/uL 0.03 PT (9.1-11.1) sec 10.9 INR (0.9-1.1) 1.1 Sodium (136-145) mmol/L 139 Potassium (3.5-5.1) mmol/L 3.7 Chloride (98-107) mmol/L 103 Carbon Dioxide (21.0-32.0) mmol/L 25.3 Anion Gap (3-11) mmol/L 10.7 BUN (7-18) mg/dL 18 Creatinine (0.55-1.02) mg/dL 1.0 Est GFR (CKD-EPI 2020) (mL/min/1.73m2) 56.25 Glucose (74-106) mg/dL 123 H Calcium (8.5-10.1) mg/dL 9.0 Magnesium (1.8-2.4) mg/dL 1.9 Total Bilirubin (0.2-1.0) mg/dL 1.1 H AST (15-37) U/L 17 ALT (14-59) U/L 20 Alkaline Phosphatase (46-116) U/L 173 H Creatine Kinase (26-192) U/L 83 Troponin I (<or=51) ng/L 12 NT-Pro-B Natriuret Pep (<300) pg/mL 2036 H Total Protein (6.4-8.2) g/dL 7.5 Albumin (3.4-5.0) g/dL 3.4 Lipase (<78) U/L 25 TSH (0.36-3.74) uIU/mL 8.51 H Urine Color (Yellow) Yellow Urine Clarity (Clear) Clear Urine pH (5-8) 6.0 Ur Specific [place] (1.005-1.025) 1.015 Urine Protein (Neg-Trace) mg/dL Trace Urine Ketones (Negative) mg/dL Negative Urine Blood (Negative) Negative Urine Nitrite (Negative) Negative Urine Bilirubin (Negative) Negative Urine Urobilinogen (Up to 0.2) mg/dL 1.0 H Ur Leukocyte Esterase (Negative) Trace H Urine RBC (0-2) HPF Negative Urine WBC (0-5) HPF 0-2 Ur Epithelial Cells (Negative) HPF Rare Urine Crystals (Negative) HPF Negative Urine Bacteria (Negative) HPF Negative Urine Casts (Negative) LPF 0-2 Hyaline Urine Mucus (Negative) Trace Ur Culture Indicated? No Urine Glucose (Negative) mg/dL 100 H Urine Opiates Screen (Negative) Negative Urine Methadone Screen (Negative) Negative Ur Barbiturates Screen (Negative) Negative Ur Tricyclics Screen (Negative) Positive A Ur Amphetamines Screen (Negative) Negative U Benzodiazepines Scrn (Negative) Negative Urine Cocaine Screen (Negative) Negative Ur THC Screen (Negative) Negative Ethyl Alcohol (<10) mg/dL < 3.0 Medical Decision Making Emergent evaluation of altered mental status and increasing falls. Patient's neighbor presents with her and has been her concerns. However the patient has an explanation for each of the falls normally have complaints. At this time she is alert and oriented and showing no signs of acute delirium. She does have some trauma to her right shoulder but otherwise no focal neurologic deficits. It seems that she is not getting much sleep lately and a lot of stress with her daughters health and surgery. \ ED workup unremarkable. No leukocytosis or anemia. No electrolyte derangement. Mild elevation in BNP which is consistent with prior. No elevation in her troponin. CT imaging does not indicate any acute etiology or signs of a stroke. Patient was evaluated by physical therapy in the emergency department. It was noted to ambulate very using a walker. She does have a walker at home and she understands that she should be using this. At this time there is no indication for hospitalization. Patient is not engaging in good sleep hygiene and not eating regular meals because she is so concerned about her daughter's wellbeing, but currently stressed with her that she must take care of herself In order to be a good caregiver. The patient does have primary care follow-up scheduled upcoming. And I encouraged her to discuss with them any concerns or requests for home health services. Quality:SDOH Health Related Social Needs: Health related social needs problems related to housing/economic circumstances (Z59.89), problems with daily activities (Z73.9) Health related social needs details Looking for increased in home care/support. [facility] All Active Problems (Updated 06/27/24 @ 14:09 by Cholo Leger MD) Contusion of right shoulder (Acute) Fall (Acute) Pre-diabetes (Acute) Graves' orbitopathy (Acute ~08/2022) 09/09/22 Endocrinology - being managed conservatively Macular hole of right eye (Acute ~05/2022) Asymptomatic bilateral carotid artery stenosis (Acute ~02/2022) 03/10/22 Vascular Surg Eyelid lesion (Acute) Cardiomyopathy (Acute) Acute kidney injury (Acute) CHF (congestive heart failure) (Acute) Graves disease (Acute 10/12/19) Roman Pizano MD [facility] [place] Fatigue (Acute) EKG abnormalities (Acute) Tachycardia (Acute) Hyperthyroidism (Chronic) Forgetfulness (Acute) Abnormal blood chemistry (Acute) Depression (Chronic 04/14/14) Elevated hemoglobin A1c (Chronic) History of anemia (Acute) Tobacco use disorder (Acute) Status post total left knee replacement (Chronic) 2007 Internal derangement of right knee (Acute) Injection: 06/30/2018; 03/04/2018; 12/23/2017 Restless legs syndrome (Acute 06/25/12) Palpitations (Acute 12/16/16) Osteoarth NOS-l/leg (Acute 06/25/12) Loc osteoarth NOS-l/leg (Acute 06/25/12) Hyperlipidemia (Chronic 04/24/11) PCEq 12.5%; LDL baseline 174 12/2016 labwork: 10-year ASCVD risk = ~23.2% --> switched from moderate to high intensity statin therapy Chronic kidney disease, stage III (moderate) (Acute 07/29/12) 12/2010 US WNL Anxiety (Chronic) Benign hypertension (Chronic) Gastroesophageal reflux disease (Chronic) Mechanical complication of internal orthopedic device (Acute 11/29/12) 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 Revision femoral component of left total knee replacement 11-29-12 by Cy Valdivia M.D. Medical History COVID 03/02/23 Influenza A Skin lesion of face cancer per pt report, s/p surgery Mumps (12/16/16) Rheumatic fever (12/16/16) Varicella (12/16/16) Impaired fasting glucose (06/28/12) Neoplasm of skin of forehead 10/29/22 [facility] Derm - shave bx done BCC (basal cell carcinoma) (~11/2021) R Medial [place] 10/29/22-R superior forehead-UV Dermatology OA (osteoarthritis) IFG (impaired fasting glucose) CKD (chronic kidney disease) Hyperlipidemia Depression Anxiety Surgical History S/P Mohs surgery for basal cell carcinoma (~12/09/21) R Medial [place] 04/15/22 R Cheek, and chin Replacement of total knee joint (10/04/07) LEFT Extraction of cataract B/L Family History Mother , ??? at age 56. Neoplasm Abdominal Father , Heart issues at age 77. Heart disease Myocardial infarction Neoplasm Colon CA dx'ed ??? Son Diabetes Daughter No problems noted. 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
--- NOTE | 2024-06-27 14:10 | IN_ITS ---
PT Notes Visit Reasons: weak & dizzy Physical Therapy Emergency Room Initial Evaluation Date: 06/27/2024 Referring Doctor: Cholo Leger MD PT Orders: PT CONSULT: Safety Consult for Discharge Precautions: Standard, fall risk Patient Profile/Admitting Diagnosis:Pt is 83 yo female presented to ED by a neighbor after pt sustained a fall this morning. Pt work uo included Head CT and shoulder xray . Negative for acute findings. PT Consult for safety. PMHX: Contusion of right shoulder (Acute) Fall (Acute) Pre-diabetes (Acute) Graves' orbitopathy (Acute ~08/2022) 09/09/22 Endocrinology - being managed conservativelyMacular hole of right eye (Acute ~05/2022) Asymptomatic bilateral carotid artery stenosis (Acute ~02/2022) 03/10/22 Vascular SurgEyelid lesion (Acute) Cardiomyopathy (Acute) Acute kidney injury (Acute) CHF (congestive heart failure) (Acute) Graves disease (Acute 10/12/19) Roman Pizano MD [facility] Fatigue (Acute) EKG abnormalities (Acute) Tachycardia (Acute) Hyperthyroidism (Chronic) Forgetfulness (Acute) Abnormal blood chemistry (Acute) Depression (Chronic 04/14/14) Elevated hemoglobin A1c (Chronic) History of anemia (Acute) Tobacco use disorder (Acute) Status post total left knee replacement (Chronic) 2008Internal derangement of right knee (Acute) Injection: 06/30/2018; 03/04/2018; 12/23/2017Restless legs syndrome (Acute 06/25/12) Palpitations (Acute 12/16/16) Osteoarth NOS-l/leg (Acute 06/25/12) Loc osteoarth NOS-l/leg (Acute 06/25/12) Hyperlipidemia (Chronic 04/24/11) PCEq 12.5%; LDL baseline 174 12/2016 labwork: 10-year ASCVD risk = ~23.2% --> switched from moderate to high intensity statin therapy Chronic kidney disease, stage III (moderate) (Acute 07/29/12) 12/2010 US WNL Anxiety (Chronic) Benign hypertension (Chronic) Gastroesophageal reflux disease (Chronic) Mechanical complication of internal orthopedic device (Acute 11/29/12) 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 Revision femoral component of left total knee replacement 11-29-12 by Cy Valdivia M.D. Medical History COVID 03/02/23Influenza A Skin lesion of face cancer per pt report, s/p surgeryMumps (12/16/16) Rheumatic fever (12/16/16) Varicella (12/16/16) Impaired fasting glucose (06/28/12) Neoplasm of skin of forehead 10/29/22 [facility] Derm - shave bx doneBCC (basal cell carcinoma) (~11/2021) R Medial [place] 10/29/22-R superior forehead-UV DermatologyOA (osteoarthritis) IFG (impaired fasting glucose) CKD (chronic kidney disease) Hyperlipidemia Depression Anxiety Surgical History S/P Mohs surgery for basal cell carcinoma (~12/09/21) R Medial [place] 04/15/22 R Cheek, and chinReplacement of total knee joint (10/04/07) LEFT Extraction of cataract B/L Social History/Home Situation: Pt resides in an apt. with her daughter . No steps to enter. Pt's neighbor ( who brought her to the ED) present and stated the patient has had multiple falls. Pt reports she does not eat a lot and has not eaten since evening meal last night. Pt reports she managed her medication, she is independent with ADL and ambulation. Pt (+) driving. Equipment Owned/DME: FWW,cane Subjective: Pt reports her daughter had shoulder surgery 5 days ago and now needs assistance. Pt also noted her daughter has been sick with loose stools and a cough the is really bad. Objective: [] General Observation: elderly female semireclined on stretcher with telemetry in place, neighbor visiting Mental Status: Alert oriented to person and place, Pain: denied Vitals 142/59, 69bpm, 96% on RA ROM: [] BUE: WNL BLE: WNL Strength: [] Right Upper Extremity: grossly 4/5 Left Upper Extremity: grossly 4/5 BLE: hip: 3+/5 knee 3+/5, ankle 3/5 Sensation:intact Bed Mobility/Transfers: [] Supine to sit supervision sit to supine: supervision Sit to stand supervision Stand to sit supervision Bed to chair supervision with FWW Gait: ambulates with FWW Supervision 200 feet including turns , door management on level and uneven surfaces. reciprocal pattern no LOB Balance: [] Static Sitting: Normal Dynamic Sitting: Good Static Standing: Good Dynamic Standing: Fair Special Tests: [] Mobility Limitations Standardized Measure [] [facility] AM-PAC 6 clicks Basic Mobility Inpatient Short Form: [] Raw Score:22 CMS Score: 20.91% Informed Consent/Education: Patient instructed in purpose of PT consult. Pt. and neighbor educated to utilize FWW for all mobility and recommend home health services. Treatment: Therapeutic activity: Functional mbility with and without FWW : pt requires Min A for mobility without FWW and supervision with FWW. Pt demonstrates LOB and stagger stepping without FWW during simulated distances and toileting tasks including walking to sink to wash hands, turning , opening doors. Assessment: Patient is an 83yo female who presents with the following impairment level findings: 1. Decreased strength BLE major muscle groups 2. Impaired standing balance 3. Limitation of joint range of motion in left knee 4 Impaired functional activity tolerance without UE support Impairments are contributing to the following functional limitations: 1. Inability to safely ambulate without assistive device 2. Increase completion time for mobility ADL performance 3. Increased fall risk Pt would benefit from home Health assessment to determine need for assistance at home with medication management , food preparation and home modifications. Patient is assessed as a moderate complexity based on the following: History: 83-year-old female with impairment level findings, functional limitations, and past medical history as indicated above Examination: Demonstrable impairment in strength, balance, and mobility level with underlying impairments and functional limitations as documented above Presentation:stable / evolving Decision Making: moderate Goals: N/A. pt discharge to home Plan of Care/Treatment Plan: N/A. PT evaluation and 1-2 treatment session only for functional mobility training using recommended AD and for HEP instruction. DISCHARGE RECOMMENDATIONS:return home with use of FWW and Home health assessment TREATMENT CODE/TIME: 58206, [id number]/ [id number] Thank you for the opportunity to participate in the care of this patient. Sue Conner PT [facility]
== END 2024-06-27 14:12 | disposition home or self-care (01) ==
PROVIDERS: Emergency Provider Emergency Medicine; PCP Nurse Practitioner
DX: S40.011A Contusion of right shoulder, initial encounter (principal); E11.22 Type 2 diabetes mellitus with diabetic chronic kidney disease; I13.0 Hypertensive heart and chronic kidney disease with heart failure and stage 1 through stage 4 chronic kidney disease, or unspecified chronic kidney disease; N18.30 Chronic kidney disease, stage 3 unspecified; E78.5 Hyperlipidemia, unspecified; W01.0XXA Fall on same level from slipping, tripping and stumbling without subsequent striking against object, initial encounter; Y93.01 Activity, walking, marching and hiking; Y92.098 Other place in other non-institutional residence as the place of occurrence of the external cause
CPT/HCPCS: 36415; 80053; 80307; 82550; 83690; 93005; 97162; 97530; 99285; 70450; 73030; 80320; 81003; 81015; 83735; 83880; 84439; 84443; 84484; 85025; 85610; 93010; 99284

== ENCOUNTER 2024-08-08 07:57 | Outpatient (CLI) | payer MEDICARE, SELFPAY | END 2024-08-08 07:58 | disposition home or self-care (01) | LOC: DI.CARD 07:58 | PROVIDERS: PCP Nurse Practitioner; Visit Provider Registered Nurse | DX: R00.2 Palpitations (principal); R00.0 Tachycardia, unspecified | CPT/HCPCS: 93010 ==

== ENCOUNTER 2024-09-12 00:41 | Outpatient (CLI) | payer MEDICARE, SELFPAY ==
--- NOTE | 2024-09-12 13:28 | DI.US_ITS ---
APPROVED REPORT EXAM: Comprehensive 2D, Doppler, and color-flow Echocardiogram Patient Location: Out-Patient [facility] Accounts: Iesha Mcdonald RDCS (AE) Indications: Check LV function, Cardiomyopathy Other Information Study Quality: Adequate Conclusion Normal left ventricular wall thickness and chamber size. Ejection fraction is 45 to 50%. There are no segmental wall motion abnormalities Normal right ventricular size and function Both atria are normal in size Trileaflet aortic valve with trace regurgitation Thickened mitral leaflets with mild regurgitation Estimated right ventricular systolic pressure is 30 mmHg Wall motion Left Ventricle The left ventricle is normal size. Left ventricular systolic function is mildly decreased. There is normal left ventricular wall thickness. There is global hypokinesis of the left ventricle. There is no ventricular septal defect visualized. LVEF is 46%. Right Ventricle The right ventricle is normal size. The right ventricular systolic function is normal. Atria The left atrium size is normal. The right atrium size is normal. The interatrial septum is intact with no evidence for an atrial septal defect. Aortic Valve The aortic valve is normal in structure. Aortic valve is trileaflet. There is no aortic valvular stenosis. Trace aortic regurgitation. Mitral Valve Thickened mitral leaflets No evidence of mitral valve stenosis. Mild mitral regurgitation. Tricuspid Valve The tricuspid valve is normal in structure. There is no tricuspid valve stenosis. Trace tricuspid regurgitation. The RVSP is 29.9_ mmHg. Pulmonic Valve The pulmonary valve is normal in structure. There is no pulmonic valvular stenosis. Trace to mild pulmonic regurgitation. Great Vessels The aortic root is normal in size. The ascending aorta is normal in size. Aortic arch is not well visualized. IVC is normal in size and collapses >50% with inspiration. Pericardium There is no pericardial effusion. 2D Dimensions IVSD d PLAX 0.98 cm F: 0.6-1.0 Ao Root d 2.68 cm F: 2.7 - 3.3 LVPW d PLAX 0.99 cm F: 0.6 - 1.0 Ao Asc Diam d 3.18 cm F: 2.3 - 3.1 LVID d PLAX 4.87 cm F: 3.8 - 5.2 LVDs 3.75 cm F: 2.2 - 3.5 LV EF Teichholz 46.0 % FS 22.98 % LV EDV (Teich) 111.4 mL LV ESV (Teich) 60.2 mL M-Mode TAPSE 1.97 cm (M/F) >1.7 Auto EF LV EDV A4C 69.0 mL LV EDV A2C 88.9 mL LV EDV BP 78.4 mL LV ESV A4C 37.3 mL LV ESV A2C 48.4 mL LV ESV BP 42.4 mL LVEF(%) A4C 45.9 % LVEF(%) A2C 45.5 % LVEF(%) BP 46.0 % LV SV A4C 31.6 ml LV SV A2C 40.5 ml LV SV BP 36.0 ml LV CO A4C 2.1 L/min LV CO A2C 2.8 L/min LV CO BP 2.4 L/min HR A4C 65.57 BPM HR A2C 68.05 BPM LV EDV Index (BP) LA Volume LA Length A4C 4.6 cm LA Length A2C 4.6 cm LA Area A4C s 14.58 cm2 LA Area A2C s 15.57 cm2 LA Vol A4C A-L 39.19 mL LA Vol A2C A-L 44.50 mL LA Vol Biplane A-L 41.9 mL LA Vol/BSA A4C A-L LA Vol/BSA A2C A-L LA Vol/BSA BP A-L 25.4 mL/m2 LA Vol A4C MOD 35.3 mL LA Vol A2C MOD 41.8 mL LA Vol BP MOD 38.4 mL RA Volume RA Area A4C 8.6 cm2 RA ESV A4C (A-L) 18.5mL RA Vol/BSA A4C A-L RA Length A4C 3.4 cm RA ESV A4C (MOD) 16.5mL LV Diastology MV E' medial 0.051 (>0.07 m/s) MV E Vmax 0.91 (0.4-1.3 m/s) MV E/E' MED 17.99 (<14) MV A Vmax 1.25 (0.4-1.3 m/s) MV E' lateral 0.067 (>0.1 m/s) E/A Ratio 0.7 MV E/E' LAT 13.67 (<14) MV E' Average 0.059 m/s MV E/E'(average) 15.53 Aortic Valve AoV Vmax 1.31 m/s LVOT Vmax 0.96 m/s AoV Peak Grad 38.9 mmHg LVOT Peak Grad 3.7 mmHg AoV Area (Vmax) 2.16 cm2 LVOT VTI 0.253 m AoV VTI 0.322 m LVOT Mean Grad 1.9 mmHg AoV Mean Anthony. 0.92 m/s LVOT SV 74.13 mL AoV Mean Grad 3.8 mmHg LVOT Diam s 1.90 cm AoV Area (VTI) 2.30 cm2 AV Regurg Peak Gr. 6.86 mmHg Velocity Ratio 0.73 AR Decel [place] 1.8m/sec2 AR DT 2361 msec AR PHT 685 msec AR Vmax 4.21 m/s Mitral Valve MV DT 270 (160-240 msec) MV Vmax TIPS 1.27 m/s MV Mean Grad 2.9 (<2mmHg) MV VTI 0.331 m Pulmonary Valve PV Vmax 1.06 (0.5-1.5 m/s) RVOT Vmax 0.93 m/s PV Peak Grad 4.5 mmHg RVOT Peak Gr. 3.5 mmHg PV Mean Anthony 0.67 m/s RVOT VTI 0.197 m PV Mean Grad 2.1 mmHg RVOT Mean Gr. 1.7 mmHg Tricuspid Valve RA Pressure 3.00 mmHg TR Vmax 2.59 m/s TV S' 0.13 m/s TR Peak Grad 26.9 mmHg RVSP (TR) 29.9 mmHg
== END 2024-09-12 01:01 ==
PROVIDERS: PCP Family Medicine; Visit Provider Internal Medicine Cardiovascular Disease
DX: I42.9 Cardiomyopathy, unspecified (principal)
CPT/HCPCS: 93306

== ENCOUNTER 2024-09-14 07:48 | Outpatient (CLI) | payer MEDICARE, SELFPAY | END 2024-09-14 07:49 | disposition home or self-care (01) | LOC: DI.CARD 07:49 | PROVIDERS: PCP Nurse Practitioner; Visit Provider Registered Nurse | DX: R00.2 Palpitations (principal); R00.0 Tachycardia, unspecified | CPT/HCPCS: 93010 ==

== ENCOUNTER → 2024-09-21 08:57 | Outpatient (BNVA) | payer MEDICARE, SELFPAY | PROVIDERS: PCP Nurse Practitioner; Referring Provider Nurse Practitioner; Visit Provider Registered Nurse | DX: I42.9 Cardiomyopathy, unspecified (principal) | CPT/HCPCS: 99214 ==

== ENCOUNTER 2024-10-18 08:29 | Outpatient (CLI) | payer MEDICARE, SELFPAY ==
[2024-10-18 09:26] LABS: TSH 5.97 uIU/mL (0.36-3.74)
== END 2024-10-18 08:30 | disposition home or self-care (01) ==
LOC: LBO 08:29
PROVIDERS: PCP Nurse Practitioner; Visit Provider Family Medicine
DX: E05.90 Thyrotoxicosis, unspecified without thyrotoxic crisis or storm (principal)
CPT/HCPCS: 36415; 84439; 84443

== ENCOUNTER 2024-11-16 15:14 | Outpatient (CLI) | payer MEDICARE, SELFPAY ==
[2024-11-16 11:31] LABS: TSH 3.93 uIU/mL (0.36-3.74)
== END 2024-11-16 15:15 | disposition home or self-care (01) ==
LOC: LBO 15:14
PROVIDERS: Visit Provider Family Medicine
DX: E05.00 Thyrotoxicosis with diffuse goiter without thyrotoxic crisis or storm (principal)
CPT/HCPCS: 36415; 84443

== ENCOUNTER 2024-11-17 15:32 | Emergency (ER) | payer MEDICARE, SELFPAY ==
--- NOTE | 2024-11-17 15:30 | DI.CT_ITS ---
Exam(s) CT HEAD CERVICAL SPINE WO EXAM: CT HEAD CERVICAL SPINE WO CLINICAL HISTORY: fall down stairs, trauma scan. TECHNIQUE: Imaging Protocol: Axial computed tomography images with coronal and sagittal reformatted images were created and reviewed COMPARISON: CT CT HEAD WO from 06/27/2024 FINDINGS: CT Head: Ventricles and Extra axial spaces: Normal in size and morphology for the patient's age. Hemorrhage: None. Cerebral parenchyma: There are several areas of decreased attenuation in the white matter most consistent with chronic microvascular ischemic disease. No acute mass effect is identified. Midline shift: None. Brainstem/Cerebellum: Normal. Calvarium: Normal. Visualized Paranasal sinuses/Mastoids: Clear. Soft Tissues: There is mild soft tissue swelling of the scalp overlying the right parietal bone. CT Cervical Spine: Bones: No acute fracture or subluxation. There is mild reversal of the normal cervical lordosis centered at C5. Age-appropriate degenerative changes are present throughout the cervical spine. The findings are most marked from C4-5 through C7-T1. Soft Tissues: Unremarkable. Lung Apices: Clear. IMPRESSION: 1. No acute intracranial process. 2. No acute fracture or subluxation in the cervical spine. 3. Mild soft tissue swelling of the scalp overlying the right parietal bone. RADIATION DOSE DELIVERED: 1,178.64mGy.cm Total DLP DATA REPOSITORY: All CT scans at this facility are submitted to the National Radiology Data Registry (NRDR) Dose Index Registry (DIR) with the [employer] (ACR). RADIATION OPTIMIZATION: All CT scans at this facility use at least one of these dose optimization techniques: automated exposure control; mA and/or kV adjustment per patient size (includes targeted exams where dose is matched to clinical indication); or iterative reconstruction.
--- NOTE | 2024-11-17 15:30 | DI.RAD_ITS ---
Exam(s) XR HAND RT COMPLETE XR WRIST RT COMPL NAVICULAR EXAM: XR WRIST RT COMPL NAVICULAR and XR hand RT complete CLINICAL HISTORY: fall down stairs, trauma scan. TECHNIQUE: 2D digital imaging was performed of the right hand and wrist. Seven views were obtained. Scaphoid, PA, lateral and oblique views were obtained. COMPARISON: There are no priors for comparison. FINDINGS: BONES: There is an acute comminuted intra-articular fracture involving the distal radius. The fracture is impacted and mildly dorsally displaced. There is also deformity of the ulnar styloid process suspicious for nondisplaced fracture. No bony destructive lesion is seen. JOINTS: The carpal bones are normally aligned. There are degenerative changes seen of the wrist particularly at the 1st carpometacarpal joint and the articulation of the scaphoid and the trapezium. There are degenerative changes seen in the interphalangeal joints of the fingers particularly the DIP joint of the index finger. SOFT TISSUE: There is soft tissue swelling of the wrist. IMPRESSION: 1. Comminuted intra-articular impacted fracture of the distal radius. 2. Findings suspicious for nondisplaced ulnar styloid process fracture. DATA REPOSITORY: RADIATION DOSE DELIVERED:
--- NOTE | 2024-11-17 15:30 | DI.CT_ITS ---
Exam(s) CT CHEST/ABD/PEL WO CT THORACIC LUMBAR SPINE REC EXAM: CT CHEST/ABD/PEL WO and CT thoracic and lumbar spine recons CLINICAL HISTORY: fall down stairs, trauma scan TECHNIQUE: Imaging Protocol: Axial computed tomography images with coronal and sagittal reformatted images were created and reviewed. Computer aided detection (CAD) was utilized. COMPARISON: CT CT CHEST PE CTA from 11/04/[address] ABDOMEN PELVIS W from 09/06/[address] THORACIC LUMBAR SPINE REC from 11/17/2024 FINDINGS: This exam is limited secondary to lack of IV and oral contrast material. CHEST: Tracheobronchial tree: Patent where visualized. No bronchiectasis. Pulmonary parenchyma: No consolidation or dominant measurable mass. There is atelectasis in the lung bases. Mediastinum and Dipika: No dominant adenopathy or fluid collection. The esophagus is unremarkable. Thyroid gland: Unremarkable. Pleura: No effusion or pneumothorax. Heart: The heart is at the upper limits of normal to mildly enlarged. Two vessel coronary artery calcification is present. No pericardial effusion. Aorta: Thoracic aorta non-dilated. Atherosclerotic calcification is present. There is dense calcification seen at the origin of the left subclavian artery causing moderate stenosis. Lymph nodes: Within normal limits. Bones:Within normal limits for the patient's age. There are no displaced rib fractures. Soft tissues: Unremarkable. Thoracic spine recons: Age-appropriate degenerative changes are seen in the thoracic spine.There are no acute fractures or subluxations seen in the thoracic spine. Lumbar spine recons: There are age-appropriate degenerative changes seen in the lumbar spine.There are no acute fractures or subluxations in the lumbar spine. ABDOMEN: Liver: Normal density. No measurable mass. Gallbladder and Biliary Tract: No radiodense calculus or dilation. Pancreas: Normal density, no abnormal calcifications or inflammatory process. Spleen: Normal. Adrenals: No masses seen. Kidneys: Normal size, contour and axis. No radiodense stones or obstructive uropathy. No masses seen. Abdominal Aorta: Abdominal portion non-dilated. Atherosclerotic calcification is present. Bowel: No obstruction or bowel wall thickening. There is diverticulosis of the colon without evidence of acute diverticulitis. There is no evidence of appendicitis. Peritoneal Cavity: No ascites, collection or mesenteric inflammatory response. No free air. Lymph Nodes: Within normal limits. Bones: Within normal limits for the patient's age. Soft Tissues: Unremarkable. PELVIS: Bladder: Symmetric distention, no gross wall thickening. Reproductive Organs: Unremarkable as visualized. Lymph Nodes: Within normal limits. Bones: Within normal limits for the patient's age. IMPRESSION: 1. Examination is limited by lack of IV contrast. 2. There is no acute pulmonary process. 3. There are no acute fractures or subluxations in the thoracic or lumbar spine. 4. No acute abdominal or pelvic process is seen. RADIATION DOSE DELIVERED: Total DLP Total DLP Total DLP Total DLP DATA REPOSITORY: All CT scans at this facility are submitted to the National Radiology Data Registry (NRDR) Dose Index Registry (DIR) with the [employer] (ACR). RADIATION OPTIMIZATION: All CT scans at this facility use at least one of these dose optimization techniques: automated exposure control; mA and/or kV adjustment per patient size (includes targeted exams where dose is matched to clinical indication); or iterative reconstruction.
[2024-11-17 15:36] VITALS: BP 117/45; PULSE 81; RESP 16; TEMP 36.3; O2SAT 98
--- NOTE | 2024-11-17 15:53 | W.ED.GENAD ---
Discharge Plan Disposition Patient Disposition: Home Condition: Stable Discharge Details Clinical Impression: Fall, Closed fracture of right distal radius Primary Care Provider: Kenan Harmon ED Provider: Esteban Duron Home Meds and New Rx's Prescriptions: Continued electrolytes-dextrose [Pedialyte] Solution 10 ml PO 4-6XD PRN (Reason: diarrhea; dehydration) Qty: 1000 1RF Rx Instructions: Take while dehydrated x 2 weeks loperamide 2 mg capsule 2 mg PO QID PRN (Reason: loose stool) Qty: 10 0RF Rx Instructions: Pt taking OTC x 4-5 days methimazole 5 mg tablet 5 mg PO DAILY Qty: 90 3RF potassium chloride 8 mEq capsule, extended release See Rx Instructions PO DAILY Qty: 90 3RF Rx Instructions: orally daily; 2 tabs daily odd days, 3 tabs daily on even days. acetaminophen [Acetaminophen Extra Strength] 500 MG tablet 500 mg PO Q4H PRN Qty: 2 Patient Comments: Not taking at present. CG atorvastatin 40 mg tablet 40 mg PO DAILY Qty: 90 3RF carvedilol 3.125 mg tablet 3.125 mg PO BID Qty: 180 3RF fluoxetine 20 mg capsule 20 mg PO HS Qty: 90 3RF furosemide 20 mg tablet 10 mg PO BID@0830,1600 Qty: 90 3RF Discharge Instructions Instructions: Forearm and Wrist Fractures ED, Preventing Falls ED Additional Instructions: You were seen in the emergency department for your fall down 5 or 6 stairs with a fracture of your right distal radius which is going to require surgery, I have arranged follow-up with the orthopedic surgeons here at [facility], they will call you tomorrow or Thursday. In the meantime you need to be taking 650 mg of Tylenol every 6 hours, fpc between Tylenol dosings you can take some ibuprofen here and there but be careful with NSAIDs as you do have some chronic kidney disease. You had low calcium which you can replete by taking Tums daily, he also had mildly low sodium, you can eat a normal diet and stay hydrated and perhaps increase your salt intake slightly over the next few days to correct this. Please use a sling for comfort, rest, ice, compress and elevate your fracture return for any complete numbness distal to the injury or other signs of neurovascular compromise. Referrals: [facility] [Provider Group] Kenan Harmon APRN [Primary Care Provider, Family Practice] HPI General Date/Time Provider Initiated Documentation: 11/17/24 15:44. HPI Narrative: 84 year-old female presents to ED today by EMS with a chief complaint of fall down 5-6 stairs at her home, slipped on her shoes with onset just prior to arrival. Quality described as headstrike with bruise on R parietal scalp, and R wrist injury- denies other pain. Patient is R-hand dominant, no radiation to nausea/vomiting, slurred speech, visual changes, chest pain, palpitations prior to fall, shortness of breath, leg pain, hip pain, low back pain. Severity is described as severe to R wrist. Palliating factors include nothing attempted yet. Provoking factors include nothing specific. Patient not anticoagulated. Related Data Home Medications ?Medication ?Instructions ?Recorded ?Confirmed acetaminophen 500 mg tablet 500 mg PO Q4H PRN ##2 12/21/12 11/17/24 (Acetaminophen Extra Strength) electrolytes-dextrose oral 10 ml PO 4-6XD PRN diarrhea; 09/11/23 11/17/24 solution (Pedialyte oral solution) dehydration #1,000 mL loperamide 2 mg capsule 2 mg PO QID PRN loose stool #10 09/11/23 11/17/24 caps atorvastatin 40 mg tablet 40 mg PO DAILY #90 tab-caps 01/14/24 11/17/24 carvedilol 3.125 mg tablet 3.125 mg PO BID #180 tabs 01/14/24 11/17/24 fluoxetine 20 mg capsule 20 mg PO HS #90 tabs 01/14/24 11/17/24 furosemide 20 mg tablet 10 mg (1/2 x 20 mg) PO 01/14/24 11/17/24 BID@0830,1600 #90 tabs methimazole 5 mg tablet 5 mg PO DAILY #90 tabs 10/19/24 11/17/24 potassium chloride 8 mEq See Rx Instructions PO DAILY #90 10/19/24 11/17/24 capsule,extended release caps Previous Rx's ?Medication ?Instructions ?Recorded electrolytes-dextrose oral 10 ml PO 4-6XD PRN diarrhea; 09/11/23 solution (Pedialyte oral solution) dehydration #1,000 mL loperamide 2 mg capsule 2 mg PO QID PRN loose stool #10 09/11/23 caps atorvastatin 40 mg tablet 40 mg PO DAILY #90 tab-caps 01/14/24 carvedilol 3.125 mg tablet 3.125 mg PO BID #180 tabs 01/14/24 fluoxetine 20 mg capsule 20 mg PO HS #90 tabs 01/14/24 furosemide 20 mg tablet 10 mg (1/2 x 20 mg) PO 01/14/24 BID@0830,1600 #90 tabs methimazole 5 mg tablet 5 mg PO DAILY #90 tabs 10/19/24 potassium chloride 8 mEq See Rx Instructions PO DAILY #90 10/19/24 capsule,extended release caps Allergies Allergy/AdvReac Type Severity Reaction Status Date / Time Sulfa (Sulfonamide Allergy Unknown ? Verified 11/16/24 10:52 Antibiotics) Penicillins Allergy RASH Verified 11/16/24 10:52 clindamycin AdvReac Severe Diarrhea Verified 11/16/24 10:52 meperidine AdvReac Unknown VOMITING Verified 11/16/24 10:52 hydrocodone bitartrate (From AdvReac NAUSEA/VOMI Verified 11/16/24 10:52 Vicodin) TING propoxyphene napsylate (From AdvReac NAUSEA/VOMI Verified 11/16/24 10:52 Darvocet-N 100) TING General Stated Complaint: Trauma CHINTAN: 3 Review of Systems All systems reviewed & are unremarkable except as noted in HPI and below Exam Narrative Exam Narrative: GENERAL APPEARANCE: Well-nourished, non-toxic, awake and alert, atraumatic, no acute distress. SKIN: Warm, pink, dry, intact, without rashes/lesions/ulcerations. HEAD: Normocephalic, R parietal scalp hematoma without Mace's sign, no periorbital ecchymosis, normal hair distribution for gender/age. EYES: Normal conjunctiva, no exudates on lids/lashes. ENT: Nares patent, no circumoral cyanosis, no facial swelling NECK: Supple, trachea midline, painless cervical ROM, no midline cervical vertebral tenderness LUNGS/CHEST: Lungs CTA bilaterally, non-labored respirations, normal A/P diameter, symmetrical expansion, no chest wall deformity HEART (CV/PV): Regular rate and rhythm without murmur, no peripheral edema, no JVD. ABDOMEN: Soft, non-distended, no guarding, no tenderness. MSK: Normal ROM, no swelling/deformity to bilateral LEs, moving all extremities without weakness save for R UE, no cyanosis, spine midline without tenderness, normal curvature. R UE: deformity, crepitus, swelling, ecchymosis at wrist, no anatomical snuff box tenderness, sensation intact in fingers, R radial pulse 2+ NEURO: Mental Status AAOx4 - alert to person, place, time, events No facial droop, no forehead involvement. Motor: No focal weakness save for known R UE injury Sensory: sensation intact to light touch globally. Gait normal: patient ambulated without ataxia into ED room. PSYCH: euthymic, cooperative, pleasant, appropriate speech Course Vital Signs Vital signs: Vital Signs Temperature 36.3 C L 11/17/24 15:36 Pulse 81 11/17/24 15:36 Respiratory Rate 16 11/17/24 15:36 Blood Pressure 117/45 L 11/17/24 15:36 Pulse Oximetry 98 11/17/24 15:36 Temperature 36.3 C L 11/17/24 15:36 Temperature Source Tympanic 11/17/24 15:36 Pulse 81 11/17/24 15:36 Respiratory Rate 16 11/17/24 15:36 Blood Pressure 117/45 L 11/17/24 15:36 Pulse Oximetry 98 11/17/24 15:36 Oxygen Delivery Method Room Air 11/17/24 15:36 Oxygen Flow Rate 0 11/17/24 15:36 Procedure Orthopedic Splinting/Casting Provider that performed the procedure: Esteban Duron Standard Time Out Performed: No Patient Consented: Verbally Side: right Upper Extremity Injury Location: wrist Upper Extremity Immobilizer: sling/shoulder immobilizer and volar splint Medical Decision Making This dictation utilizes [id number] dictation software and may contain unedited grammatical errors. 84 year-old female presents to ED today by EMS with a chief complaint of fall down 5-6 stairs at her home, slipped on her shoes with onset just prior to arrival. Quality described as headstrike with bruise on R parietal scalp, and R wrist injury- denies other pain. Patient is R-hand dominant, no radiation to nausea/vomiting, slurred speech, visual changes, chest pain, palpitations prior to fall, shortness of breath, leg pain, hip pain, low back pain. Severity is described as severe to R wrist. Palliating factors include nothing attempted yet. Provoking factors include nothing specific. Patients' medical history: history of rheumatic fever, impaired fasting glucose, grave's disease, cardiomyopathy, HTN, GERD, CKD III. Family and social history: Noncontributory. Pertinent exam findings / vital signs include R wrist deformity with crepitus, R radial pulse 2+, lungs CTA, no crepitus to ribcage, no midline cervical vertebral tenderness/crepitus/stepoffs, R parietal scalp hematoma, no periorbital ecchymosis, no Mace's sign, moving L UE & bilat LEs without issues, no hip tenderness, benign cardiac exam, neuro intact. Differential / pathologies of concern include trauma, fracture, ICH, PTX. Diagnostic studies of: - CBC, CMP, lipase, serial troponins, urinalysis, magnesium, EKG, CT head without contrast, CT cervical/thoracic/lumbar spine without, CT chest abdomen pelvis without, x-ray right wrist and hand. - CBC shows no leukocytosis, no anemia - CMP has mildly low sodium at 128, CKD with a creatinine of 1.0 GFR 55 - Mildly low calcium at 7.8 which was repleted with calcium carbonate, recommend continuing Tums daily outpatient - Serial troponins negative - Lipase negative - UA benign - CT showed no intracranial hemorrhage or abnormality in the chest abdomen pelvis, no fractures - X-ray of the hand and wrist shows an intra-articular impacted comminuted fracture of the distal radius with a likely nondisplaced ulnar styloid fracture, discussed with surgery Dr. Kaplan and per hospital they recommend volar splinting in place and will perform surgery and short-term follow-up Interventions of: -Volar splint application, 1g PO calcium carbonate, recommend slight increase in salt intake in the short term. ED Course/Assessment/Plan: 84-year-old female had a fall down 5 or 6 stairs, has a fracture and needs surgical fixation to the right wrist, patient is right-hand dominant this was placed in a volar splint as well as a sling for comfort, patient will be called by the orthopedic service in the near future to arrange for elective repair. She had a small scalp hematoma no other signs of trauma benign laboratory workup, a recommended she take Tums for her low calcium and eat some saltier foods in the next few days to increase her sodium level, patient ambulated home with family and was comfortable with this plan. Findings not consistent with ICH, neurovascular compromise, medical cause of fall. Disposition of Fall, Closed Fracture of Distal Radius of Right Arm. Patient verbalized understanding of the plan and return to ED criteria and engaged in shared decision making. Medical Records Medical records reviewed: Yes I reviewed the patient's medical records. Imaging Data Radiologic Study: Attestation: I personally reviewed and interpreted this imaging study as follows: Imaging: CT Scan Radiologist's impression: EXAM: CT HEAD CERVICAL SPINE WO CLINICAL HISTORY: fall down stairs, trauma scan. TECHNIQUE: Imaging Protocol: Axial computed tomography images with coronal and sagittal reformatted images were created and reviewed COMPARISON: CT CT HEAD WO from 06/27/2024 FINDINGS: CT Head: Ventricles and Extra axial spaces: Normal in size and morphology for the patient's age. Hemorrhage: None. Cerebral parenchyma: There are several areas of decreased attenuation in the white matter most consistent with chronic microvascular ischemic disease. No acute mass effect is identified. Midline shift: None. Brainstem/Cerebellum: Normal. Calvarium: Normal. Visualized Paranasal sinuses/Mastoids: Clear. Soft Tissues: There is mild soft tissue swelling of the scalp overlying the right parietal bone. CT Cervical Spine: Bones: No acute fracture or subluxation. There is mild reversal of the normal cervical lordosis centered at C5. Age-appropriate degenerative changes are present throughout the cervical spine. The findings are most marked from C4-5 through C7-T1. Soft Tissues: Unremarkable. Lung Apices: Clear. IMPRESSION: 1. No acute intracranial process. 2. No acute fracture or subluxation in the cervical spine. 3. Mild soft tissue swelling of the scalp overlying the right parietal bone. Radiologic Study #2: Attestation: I personally reviewed and interpreted this imaging study as follows: Imaging: CT Scan Radiologist's impression: EXAM: CT CHEST/ABD/PEL WO and CT thoracic and lumbar spine recons CLINICAL HISTORY: fall down stairs, trauma scan TECHNIQUE: Imaging Protocol: Axial computed tomography images with coronal and sagittal reformatted images were created and reviewed. Computer aided detection (CAD) was utilized. COMPARISON: CT CT CHEST PE CTA from 11/04/[address] ABDOMEN PELVIS W from 09/06/[address] THORACIC LUMBAR SPINE REC from 11/17/2024 FINDINGS: This exam is limited secondary to lack of IV and oral contrast material. CHEST: Tracheobronchial tree: Patent where visualized. No bronchiectasis. Pulmonary parenchyma: No consolidation or dominant measurable mass. There is atelectasis in the lung bases. Mediastinum and Dipika: No dominant adenopathy or fluid collection. The esophagus is unremarkable. Thyroid gland: Unremarkable. Pleura: No effusion or pneumothorax. Heart: The heart is at the upper limits of normal to mildly enlarged. Two vessel coronary artery calcification is present. No pericardial effusion. Aorta: Thoracic aorta non-dilated. Atherosclerotic calcification is present. There is dense calcification seen at the origin of the left subclavian artery causing moderate stenosis. Lymph nodes: Within normal limits. Bones:Within normal limits for the patient's age. There are no displaced rib fractures. Soft tissues: Unremarkable. Thoracic spine recons: Age-appropriate degenerative changes are seen in the thoracic spine.There are no acute fractures or subluxations seen in the thoracic spine. Lumbar spine recons: There are age-appropriate degenerative changes seen in the lumbar spine.There are no acute fractures or subluxations in the lumbar spine. ABDOMEN: Liver: Normal density. No measurable mass. Gallbladder and Biliary Tract: No radiodense calculus or dilation. Pancreas: Normal density, no abnormal calcifications or inflammatory process. Spleen: Normal. Adrenals: No masses seen. Kidneys: Normal size, contour and axis. No radiodense stones or obstructive uropathy. No masses seen. Abdominal Aorta: Abdominal portion non-dilated. Atherosclerotic calcification is present. Bowel: No obstruction or bowel wall thickening. There is diverticulosis of the colon without evidence of acute diverticulitis. There is no evidence of appendicitis. Peritoneal Cavity: No ascites, collection or mesenteric inflammatory response. No free air. Lymph Nodes: Within normal limits. Bones: Within normal limits for the patient's age. Soft Tissues: Unremarkable. PELVIS: Bladder: Symmetric distention, no gross wall thickening. Reproductive Organs: Unremarkable as visualized. Lymph Nodes: Within normal limits. Bones: Within normal limits for the patient's age. IMPRESSION: 1. Examination is limited by lack of IV contrast. 2. There is no acute pulmonary process. 3. There are no acute fractures or subluxations in the thoracic or lumbar spine. 4. No acute abdominal or pelvic process is seen. Radiologic Study #3: Attestation: I personally reviewed and interpreted this imaging study as follows: Imaging: X-Ray Radiologist's impression: EXAM: XR WRIST RT COMPL NAVICULAR and XR hand RT complete CLINICAL HISTORY: fall down stairs, trauma scan. TECHNIQUE: 2D digital imaging was performed of the right hand and wrist. Seven views were obtained. Scaphoid, PA, lateral and oblique views were obtained. COMPARISON: There are no priors for comparison. FINDINGS: BONES: There is an acute comminuted intra-articular fracture involving the distal radius. The fracture is impacted and mildly dorsally displaced. There is also deformity of the ulnar styloid process suspicious for nondisplaced fracture. No bony destructive lesion is seen. JOINTS: The carpal bones are normally aligned. There are degenerative changes seen of the wrist particularly at the 1st carpometacarpal joint and the articulation of the scaphoid and the trapezium. There are degenerative changes seen in the interphalangeal joints of the fingers particularly the DIP joint of the index finger. SOFT TISSUE: There is soft tissue swelling of the wrist. IMPRESSION: 1. Comminuted intra-articular impacted fracture of the distal radius. 2. Findings suspicious for nondisplaced ulnar styloid process fracture. Lab Data Lab results reviewed: Yes I reviewed the patient's lab results. Labs: Laboratory Tests Range/Units 11/17/24 11/17/24 11/17/24 16:03 17:28 18:05 WBC (4.4-10.8) 10^3/uL 9.93 RBC (3.93-5.22) 10^6/uL 4.06 Hgb (11.2-15.7) g/dL 12.1 Hct (36.0-46.0) % 36.4 MCV (80-95) fL 90 MCH (27.0-33.0) pg 29.8 MCHC (32.0-36.0) % 33.2 RDW (11.7-14.6) % 13.6 Plt Count (130-400) 10^3/uL 191 MPV (8.0-11.0) fL 9.9 Immature Gran % % 0.5 Neutrophils % % 49.4 Lymphocytes % % 37.5 Monocytes % % 9.1 Eosinophils % % 2.8 Basophils % % 0.7 Nucleated RBC % (0.0-0.3) % 0.0 Absolute Neutrophils (1.2-6.7) 10^3/uL 4.91 Absolute Lymphocytes (1.2-3.4) 10^3/uL 3.72 H Absolute Monocytes (0.1-0.8) 10^3/uL 0.90 H Absolute Eosinophils (0.0-0.7) 10^3/uL 0.28 Absolute Basophils (0.0-0.2) 10^3/uL 0.07 Sodium (136-145) mmol/L 128 L Potassium (3.5-5.1) mmol/L 3.5 Chloride (98-107) mmol/L 96 L Carbon Dioxide (21.0-32.0) mmol/L 23.7 Anion Gap (3-11) mmol/L 8.3 BUN (7-18) mg/dL 14 Creatinine (0.55-1.02) mg/dL 1.0 Est GFR (CKD-EPI 2020) (mL/min/1.73m2) 55.90 Glucose (74-106) mg/dL 121 H Calcium (8.5-10.1) mg/dL 7.8 L Magnesium (1.8-2.4) mg/dL 1.8 Total Bilirubin (0.2-1.0) mg/dL 0.5 AST (15-37) U/L 17 ALT (14-59) U/L 14 Alkaline Phosphatase (46-116) U/L 160 H Troponin I (<or=51) ng/L 13 15 Total Protein (6.4-8.2) g/dL 6.2 L Albumin (3.4-5.0) g/dL 3.1 L Lipase (<78) U/L 36 Urine Color (Yellow) Yellow Urine Clarity (Clear) Clear Urine pH (5-8) 6.0 Ur Specific [place] (1.005-1.025) 1.010 Urine Protein (Neg-Trace) mg/dL Negative Urine Ketones (Negative) mg/dL Negative Urine Blood (Negative) Negative Urine Nitrite (Negative) Negative Urine Bilirubin (Negative) Negative Urine Urobilinogen (Up to 0.2) mg/dL 0.2 Ur Leukocyte Esterase (Negative) Negative Urine Glucose (Negative) mg/dL Negative Quality:SDOH Health Related Social Needs: Health related social needs house/econ circumstance daily activities Health related social needs details Looking for increased in home care/support. PFSH All Active Problems (Updated 11/17/24 @ 18:41 by DAVID Ochoa) Closed fracture of right distal radius (Acute) Fall (Acute) Multiple falls (Acute) Pre-diabetes (Acute) Graves' orbitopathy (Acute ~08/2022) 09/09/22 Endocrinology - being managed conservatively Macular hole of right eye (Acute ~05/2022) Asymptomatic bilateral carotid artery stenosis (Acute ~02/2022) 03/10/22 Vascular Surg Eyelid lesion (Acute) Cardiomyopathy (Acute) Acute kidney injury (Acute) CHF (congestive heart failure) (Acute) Graves disease (Acute 10/12/19) Roman Pizano MD [facility] [place] Fatigue (Acute) EKG abnormalities (Acute) Tachycardia (Acute) Hyperthyroidism (Chronic) Forgetfulness (Acute) Abnormal blood chemistry (Acute) Depression (Chronic 04/14/14) Elevated hemoglobin A1c (Chronic) History of anemia (Acute) Tobacco use disorder (Acute) Status post total left knee replacement (Chronic) 2007 Internal derangement of right knee (Acute) Injection: 06/30/2018; 03/04/2018; 12/23/2017 Restless legs syndrome (Acute 06/25/12) Palpitations (Acute 12/16/16) Osteoarth NOS-l/leg (Acute 06/25/12) Loc osteoarth NOS-l/leg (Acute 06/25/12) Hyperlipidemia (Chronic 04/24/11) PCEq 12.5%; LDL baseline 174 12/2016 labwork: 10-year ASCVD risk = ~23.2% --> switched from moderate to high intensity statin therapy Chronic kidney disease, stage III (moderate) (Acute 07/29/12) 12/2010 US WNL Anxiety (Chronic) Benign hypertension (Chronic) Gastroesophageal reflux disease (Chronic) Mechanical complication of internal orthopedic device (Acute 11/29/12) 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 Revision femoral component of left total knee replacement 11-29-12 by Cy Valdivia M.D. Medical History COVID 03/02/23 Influenza A Skin lesion of face cancer per pt report, s/p surgery Mumps (12/16/16) Rheumatic fever (12/16/16) Varicella (12/16/16) Impaired fasting glucose (06/28/12) Neoplasm of skin of forehead 10/29/22 UV Derm - shave bx done BCC (basal cell carcinoma) (~11/2021) R Medial [place] 10/29/22-R superior forehead-[facility] Dermatology OA (osteoarthritis) IFG (impaired fasting glucose) CKD (chronic kidney disease) Hyperlipidemia Depression Anxiety Surgical History S/P Mohs surgery for basal cell carcinoma (~12/09/21) R Medial [place] 04/15/22 R Cheek, and chin Replacement of total knee joint (10/04/07) LEFT Extraction of cataract B/L Family History Mother , ??? at age 56. Neoplasm Abdominal Father , Heart issues at age 77. Heart disease Myocardial infarction Neoplasm Colon CA dx'ed ??? Son Diabetes Daughter No problems noted. 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
[2024-11-17 16:16] LABS: Abs Immature Grans 0.05 10^3/uL (0.0-0.06); HCT 36.4 % (36.0-46.0); HGB 12.1 g/dL (11.2-15.7); Immature Grans % 0.5 %; MCH 29.8 pg (27.0-33.0); MCHC 33.2 % (32.0-36.0); MCV 90 fL (80-95); MPV 9.9 fL (8.0-11.0); Platelet Count 191 10^3/uL (130-400); RBC 4.06 10^6/uL (3.93-5.22); RDW 13.6 % (11.7-14.6); RDW-SD 44.6 fL; WBC 9.93 10^3/uL (4.4-10.8)
[2024-11-17 16:29] LABS: Magnesium 1.8 mg/dL (1.8-2.4); Troponin I 13 ng/L (<or=51)
[2024-11-17 16:52] LABS: ALT 14 U/L (14-59); AST 17 U/L (15-37); Albumin 3.1 g/dL (3.4-5.0); Alkaline Phosphatase 160 U/L (46-116); Anion Gap 8.3 mmol/L (3-11); BUN 14 mg/dL (7-18); Bilirubin, Total 0.5 mg/dL (0.2-1.0); CO2 23.7 mmol/L (21.0-32.0); Calcium 7.8 mg/dL (8.5-10.1); Chloride 96 mmol/L (98-107); Estimated GFR 55.90 (mL/min/1.73m2); Glucose 121 mg/dL (74-106); Lipase 36 U/L (<78); Potassium 3.5 mmol/L (3.5-5.1); Sodium 128 mmol/L (136-145); Total Protein 6.2 g/dL (6.4-8.2)
--- NOTE | 2024-11-17 17:15 | RT.EKG_ITS ---
APPROVED REPORT Exam: Resting ECG Reason for Exam: baseline/screening Patient Location: E HR:71 bpm ECG Measurements Heart Rate 71 AXIS FL 183 P 55 QRSd 103 QRS 42 QT 496 T 48 QTc 539 Conclusion Sinus rhythm...normal P axis, V-rate 60- 99 Low voltage, precordial leads...precordial leads <1.0mV Prolonged QT interval...QTc >500mS There are no significant changes compared to prior EKG performed on 09/06/2023 at 11:42.
[2024-11-17] MEDS: Calcium Carbonate *TUMS* 500 MG CHEW 1000 MG PO (17:55)
[2024-11-17 18:04] VITALS: BP 141/84; PULSE 78; RESP 16; O2SAT 96
--- NOTE | 2024-11-17 18:05 | NUR.NOTE ---
Nursing Note: PT stood with stand by assist to commode in room preformed adl care by self denies dizziness while moving around room .
[2024-11-17 18:24] LABS: Glucose Negative (Negative)
[2024-11-17 18:39] LABS: Troponin I 15 ng/L (<or=51)
[2024-11-17 18:57] VITALS: BP 147/63; PULSE 69; RESP 16; O2SAT 95
--- NOTE | 2024-11-19 17:30 | NUR.NOTE ---
Access chart to print the demographics for [facility] billing requisition. Nursing Note:
== END 2024-11-17 19:04 | disposition home or self-care (01) ==
PROVIDERS: Emergency Provider Physician Assistant
DX: S52.571A Other intraarticular fracture of lower end of right radius, initial encounter for closed fracture (principal); S00.83XA Contusion of other part of head, initial encounter; W10.8XXA Fall (on) (from) other stairs and steps, initial encounter; Z59.89 Other problems related to housing and economic circumstances
CPT/HCPCS: 99284 ×2; 29125; 71250; 80053; 83690; 93005; 70450; 72125; 73110; 73130; 74176; 81003; 83735; 84484; 85025; 93010

== ENCOUNTER 2024-11-22 10:54 | Day surgery (SDC) | payer MEDICARE, SELFPAY ==
--- NOTE | 2024-11-22 07:20 | PDOC.DSDIS_ITS ---
Date of service: 11/22/24 Discharge Plan Disposition Patient Disposition: Home Condition: Good Discharge Details Reason For Visit: Right distal radius fracture Attending Provider: Jeremiah Monsalve Primary Care Provider: Kenan Harmon Home Meds and New Rx's Prescriptions: New tramadol 50 mg tablet 50 mg PO Q6H PRN (Reason: severe postoperative pain) Qty: 10 0RF Rx Instructions: Take one tablet up to every 6 hours as needed for severe pain acetaminophen 500 mg tablet 500 mg PO Q6H PRN (Reason: pain) Qty: 60 2RF ibuprofen 600 mg tablet 600 mg PO TID PRN (Reason: pain) Qty: 60 0RF Continued electrolytes-dextrose [Pedialyte] Solution 10 ml PO 4-6XD PRN (Reason: diarrhea; dehydration) Qty: 1000 1RF Rx Instructions: Take while dehydrated x 2 weeks loperamide 2 mg capsule 2 mg PO QID PRN (Reason: loose stool) Qty: 10 0RF Rx Instructions: Pt taking OTC x 4-5 days methimazole 5 mg tablet 5 mg PO DAILY Qty: 90 3RF potassium chloride 8 mEq capsule, extended release See Rx Instructions PO DAILY Qty: 90 3RF Rx Instructions: orally daily; 2 tabs daily odd days, 3 tabs daily on even days. atorvastatin 40 mg tablet 40 mg PO DAILY Qty: 90 3RF carvedilol 3.125 mg tablet 3.125 mg PO BID Qty: 180 3RF fluoxetine 20 mg capsule 20 mg PO HS Qty: 90 3RF furosemide 20 mg tablet 10 mg PO BID@0830,1600 Qty: 90 3RF Discontinued acetaminophen [Acetaminophen Extra Strength] 500 MG tablet 500 mg PO Q4H PRN Qty: 2 Patient Comments: Not taking at present. CG Discharge Instructions Additional Instructions: Wrist Fracture Fixation Discharge Instructions Activity: You should keep the hand/wrist elevated as much as possible for the first few days. You may use the other fingers as tolerated but avoid trying to do too much too soon. You may perform light activities with the splint in place. Dressing/Cast: Your splint should stay in place at all times. Do NOT get it wet. You may loosen the OTTO wrap if you feel it is too tight and then rewrap more loosely. Medications: - You should take Tylenol and Ibuprofen for baseline pain control. - You have been prescribed a stronger pain medication, Tramadol, for breakthrough pain. - You may apply ice over the wrist, just double bag so it doesn't get wet. Follow-up: 10-14 days Referrals: Jeremiah Monsalve MD [ [facility] STAFF PHYSICIAN, Orthopaedic Surgical] Equipment/Supplies: Splint and Sling Activity:: Elevate Remove Dressings/Wound Care:: Do Not Remove Shower/Bathe:: Cover Diet:: As Tolerated Discharge Orders Discharge Orders: Discharge Order (Routine); Ordered 11/22/24 Ordered By: Milady Varma
--- NOTE | 2024-11-22 07:34 | W.PREOPHP ---
Assessment and Plan Assessment and plan (1) Closed fracture of right distal radius: Status: Acute Assessment and plan: Caitlin is an 84-year-old [id number] female who suffered a displaced intra-articular fracture of the right distal radius. Given the displaced nature and is intra-articular fracture parent I did recommend fixation, particular through being [id number]. While close reduction and casting could potentially produce acceptable results. These results to be more predictable with surgical stabilization of these fracture fragments. She agrees with this treatment plan. I reviewed the risk of the procedure to include bleeding, infection, pain, stiffness, damage to nerves and vessels, damage to muscle and tendons, hardware prominence, hardware failure, tendon rupture, malunion, nonunion. Despite these risk, she elects to proceed. (2) Hyponatremia: Status: Acute Assessment and plan: Abnormally low sodium level at the emergency department visit. Will recheck this morning. History of Present Illness History of Present Illness Chief Complaint: Right Wrist Fracture Narrative: Caitlin is an 84-year-old female who fell about 5 days ago onto an outstretched right hand. She was diagnosed with an intra-articular and displaced fracture of the right distal radius. She had significant pain which is continued. Given the nature of the fracture and her hand dominance I did recommend operative fixation to stabilize intra-articular fracture pattern of this distal radius and gain stability and pain control. She denies any current exacerbations of her medical history. She does have history of Graves' disease and is followed for this without any changes to her medications recently. She does have some issues with falls but no acute changes as of late. No chest pain or shortness of breath. She has a history of congestive heart failure for which she takes Lasix and has regular cardiology visits and echocardiograms. Review of Systems All systems reviewed & are unremarkable except as noted in HPI and below PFSH All Active Problems (Updated 11/22/24 @ 11:38 by Jeremiah Monsalve MD) Hyponatremia (Acute) Closed fracture of right distal radius (Acute) Fall (Acute) Multiple falls (Acute) Pre-diabetes (Acute) Graves' orbitopathy (Acute ~08/2022) 09/09/22 Endocrinology - being managed conservatively Macular hole of right eye (Acute ~05/2022) Asymptomatic bilateral carotid artery stenosis (Acute ~02/2022) 03/10/22 Vascular Surg Eyelid lesion (Acute) Cardiomyopathy (Acute) Acute kidney injury (Acute) CHF (congestive heart failure) (Acute) Graves disease (Acute 10/12/19) Roman Pizano MD [facility] [place] Fatigue (Acute) EKG abnormalities (Acute) Tachycardia (Acute) Hyperthyroidism (Chronic) Forgetfulness (Acute) Abnormal blood chemistry (Acute) Depression (Chronic 04/14/14) Elevated hemoglobin A1c (Chronic) History of anemia (Acute) Tobacco use disorder (Acute) Status post total left knee replacement (Chronic) 2007 Internal derangement of right knee (Acute) Injection: 06/30/2018; 03/04/2018; 12/23/2017 Restless legs syndrome (Acute 06/25/12) Palpitations (Acute 12/16/16) Osteoarth NOS-l/leg (Acute 06/25/12) Loc osteoarth NOS-l/leg (Acute 06/25/12) Hyperlipidemia (Chronic 04/24/11) PCEq 12.5%; LDL baseline 174 12/2016 labwork: 10-year ASCVD risk = ~23.2% --> switched from moderate to high intensity statin therapy Chronic kidney disease, stage III (moderate) (Acute 07/29/12) 12/2010 US WNL Anxiety (Chronic) Benign hypertension (Chronic) Gastroesophageal reflux disease (Chronic) Mechanical complication of internal orthopedic device (Acute 11/29/12) 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 Revision femoral component of left total knee replacement 11-29-12 by Cy Valdivia M.D. Medical History COVID 03/02/23 Influenza A Skin lesion of face cancer per pt report, s/p surgery Mumps (12/16/16) Rheumatic fever (12/16/16) Varicella (12/16/16) Impaired fasting glucose (06/28/12) Neoplasm of skin of forehead 10/29/22 [facility] Derm - shave bx done BCC (basal cell carcinoma) (~11/2021) R Medial [place]hus 10/29/22-R superior forehead-[facility] [[email or web address]] Dermatology OA (osteoarthritis) IFG (impaired fasting glucose) CKD (chronic kidney disease) Hyperlipidemia Depression Anxiety Surgical History S/P Mohs surgery for basal cell carcinoma (~12/09/21) R Medial [place] 04/15/22 R Cheek, and chin Replacement of total knee joint (10/04/07) LEFT Extraction of cataract B/L Family History Mother , ??? at age 56. Neoplasm Abdominal Father , Heart issues at age 77. Heart disease Myocardial infarction Neoplasm Colon CA dx'ed ??? Son Diabetes Daughter No problems noted. 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 Verified 11/16/24 10:52 Antibiotics) Penicillins Allergy RASH Verified 11/16/24 10:52 clindamycin AdvReac Severe Diarrhea Verified 11/16/24 10:52 meperidine AdvReac Unknown VOMITING Verified 11/16/24 10:52 hydrocodone bitartrate (From AdvReac NAUSEA/VOMI Verified 11/16/24 10:52 Vicodin) TING propoxyphene napsylate (From AdvReac NAUSEA/VOMI Verified 11/16/24 10:52 Darvocet-N 100) TING Home Medications ?Medication ?Instructions ?Recorded ?Confirmed ?Type acetaminophen 500 mg tablet 500 mg PO Q4H PRN ##2 12/21/12 11/21/24 History (Acetaminophen Extra Strength) electrolytes-dextrose oral 10 ml PO 4-6XD PRN diarrhea; 09/11/23 11/21/24 Rx solution (Pedialyte oral solution) dehydration #1,000 mL loperamide 2 mg capsule 2 mg PO QID PRN loose stool #10 09/11/23 11/21/24 Rx caps atorvastatin 40 mg tablet 40 mg PO DAILY #90 tab-caps 01/14/24 11/21/24 Rx carvedilol 3.125 mg tablet 3.125 mg PO BID #180 tabs 01/14/24 11/21/24 Rx fluoxetine 20 mg capsule 20 mg PO HS #90 tabs 01/14/24 11/21/24 Rx furosemide 20 mg tablet 10 mg (1/2 x 20 mg) PO 01/14/24 11/21/24 Rx BID@0830,1600 #90 tabs methimazole 5 mg tablet 5 mg PO DAILY #90 tabs 10/19/24 11/21/24 Rx potassium chloride 8 mEq See Rx Instructions PO DAILY #90 10/19/24 11/21/24 Rx capsule,extended release caps Exam Resp Effort & Inspection: normal respiratory effort Auscultation: clear to auscultation bilaterally Cardio Rate: regular rate Rhythm: regular rhythm Extrem Other: Notable ecchymosis about the right upper extremity. Swelling is fairly minimal. She is able demonstrate active finger flexion and extension without significant pain. Sensation intact to light touch over the median, radial, ulnar nerve. Results Imaging Imaging Studies: X-ray of the right wrist demonstrates an intra-articular and displaced fracture. There is a coronal split going into the joint surface as well as a small sagittal split with a dorsal fragment as well as the typical extraarticular fracture line. There is dorsal displacement and displacement of the epiphyseal fragments Labs 11/22/24 11:25
[2024-11-22 11:15] VITALS: BP 127/76; PULSE 94; RESP 22; TEMP 36; O2SAT 96
--- NOTE | 2024-11-22 11:21 | ANES.PREOP_ITS ---
General Info Date of Service Date Performed: 11/22/24 Height: 5 ft 4 in Weight: 62.9 kg Body Mass Index (BMI): 23.8 Surgical Procedure: Operation Date: 11/22/24 15:10 Proposed Procedure Side Surgeon p ORIF right wrist fracture Right Jeremiah Monsalve MD Meds Allergies and Home Medications Allergies Allergy/AdvReac Type Severity Reaction Status Date / Time Sulfa (Sulfonamide Allergy Unknown ? Verified 11/16/24 10:52 Antibiotics) Penicillins Allergy RASH Verified 11/16/24 10:52 clindamycin AdvReac Severe Diarrhea Verified 11/16/24 10:52 meperidine AdvReac Unknown VOMITING Verified 11/16/24 10:52 hydrocodone bitartrate (From AdvReac NAUSEA/VOMI Verified 11/16/24 10:52 Vicodin) TING propoxyphene napsylate (From AdvReac NAUSEA/VOMI Verified 11/16/24 10:52 Darvocet-N 100) TING Home Medication ?Medication ?Instructions ?Recorded acetaminophen 500 mg tablet 500 mg PO Q4H PRN ##2 11/24 11/05 (Acetaminophen Extra Strength) electrolytes-dextrose oral 10 ml PO 4-6XD PRN diarrhea ; 09/11/23 solution (Pedialyte oral solution) dehydration #1,000 mL loperamide 2 mg capsule 2 mg PO QID PRN loose stool #10 09/11/23 caps atorvastatin 40 mg tablet 40 mg PO DAILY #90 tab-caps 01/14/24 carvedilol 3.125 mg tablet 3.125 mg PO BID #180 tabs 1 03/15/23 fluoxetine 20 mg capsule 20 mg PO HS #90 tabs 4 furosemide 20 mg tablet 10 mg (1/2 x 20 mg) PO 01/13 BID@0830,1600 #90 tabs methimazole 5 mg tablet 5 mg PO DAILY #90 tabs 10/19 potassium chloride 8 mEq See Rx Instructions PO DAILY #90 10/19/24 capsule,extended release caps Current Visit Medications: Current Medications Generic Name Dose Route Start Last Admin Trade Name Freq PRN Reason Stop Dose Admin Acetaminophen 1,000 mg 11/22/24 06:00 Acetaminophen 500 Mg Tab PO 12/21/24 23:59 PREOP ISHAN Celecoxib 400 mg 11/22/24 06:00 Celecoxib 200 Mg Cap PO 12/21/24 23:59 PREOP ISHAN Ringer's Solution 1,000 mls @ 80 mls/hr 11/22/24 06:00 IV 12/21/24 23:59 INFUSION ISHAN Cefazolin Sodium/Dextrose 2 gm in 50 mls @ 100 mls/hr 11/22/24 06:00 Ancef Duplex IVPB 12/21/24 23:59 PREOP ISHAN IV Miscellaneous Supplies 1 each 11/22/24 06:00 Iv Access IV 12/21/24 23:59 DIRECTED ISHAN Sodium Chloride 0 ml 11/22/24 06:00 Normal Saline Flush 10 Ml Syr IV 12/21/24 23:59 PRN PRN Sodium Chloride 0 ml 11/22/24 06:00 Normal Saline 10 Ml Vial IJ 12/21/24 23:59 DIRECTED PRN Sterile Water 0 ml 11/22/24 06:00 Water,Injection,Sterile 10 Ml Vial IJ 12/21/24 23:59 DIRECTED PRN Tramadol HCl 50 mg 11/22/24 07:18 Tramadol 50 Mg Tab PO 12/22/24 07:17 Q6H PRN PRN PFSH Active Problems Active Problems: Problem Status Onset Code Closed fracture of right distal radius Acute S52.501A Fall Acute W19.XXXA Multiple falls Acute R29.6 Pre-diabetes Acute R73.03 Graves' orbitopathy Acute ~08/2022 E05.00 Macular hole of right eye Acute ~05/2022 H35.341 Asymptomatic bilateral carotid artery stenosis Acute ~02/2022 I65.23 Eyelid lesion Acute H02.9 Cardiomyopathy Acute I42.9 Acute kidney injury Acute N17.9 CHF (congestive heart failure) Acute I50.9 Graves disease Acute 10/12/19 E05.00 Fatigue Acute R53.83 EKG abnormalities Acute R94.31 Tachycardia Acute R00.0 Hyperthyroidism Chronic E05.90 Forgetfulness Acute R68.89 Abnormal blood chemistry Acute R79.9 Depression Chronic 04/14/14 F32.9 Elevated hemoglobin A1c Chronic R73.09 History of anemia Acute Z86.2 Tobacco use disorder Acute F17.200 Status post total left knee replacement Chronic Z96.652 Internal derangement of right knee Acute M23.91 Restless legs syndrome Acute 06/25/12 G25.81 Palpitations Acute 12/16/16 R00.2 Osteoarth NOS-l/leg Acute 06/25/12 Loc osteoarth NOS-l/leg Acute 06/25/12 M17.10 Hyperlipidemia Chronic 04/24/11 E78.5 Chronic kidney disease, stage III (moderate) Acute 07/29/12 N18.3 Anxiety Chronic F41.9 Benign hypertension Chronic I10 Gastroesophageal reflux disease Chronic K21.9 Mechanical complication of internal orthopedic device Acute 11/29/12 T84.498A Medical History Medical History COVID 03/02/23 Influenza A Skin lesion of face cancer per pt report, s/p surgery Mumps (12/16/16) Rheumatic fever (12/16/16) Varicella (12/16/16) Impaired fasting glucose (06/28/12) Neoplasm of skin of forehead 10/29/22 [facility] Derm - shave bx done BCC (basal cell carcinoma) (~11/2021) R Medial [place] 10/29/22-R superior forehead-[facility] Dermatology OA (osteoarthritis) IFG (impaired fasting glucose) CKD (chronic kidney disease) Hyperlipidemia Depression Anxiety Surgical History Surgical History S/P Mohs surgery for basal cell carcinoma (~12/09/21) R Medial [place] 04/15/22 R Cheek, and chin Replacement of total knee joint (10/04/07) LEFT Extraction of cataract B/L Tobacco Smoking/Tobacco Use Status: Former Tobacco Use Alcohol Alcohol Intake: current Alcohol intake frequency: holidays/special occasions only Substance Use Substance use: Never Substance use type: does not use Vital Signs and Lab Results Vital Signs Most Recent Vital Signs in EMR: Most Recent Vital Signs Temp Pulse Resp BP Pulse Ox 36.0 C L 94 H 22 127/76 96 11/22/24 11:15 11/22/24 11:15 11/22/24 11:15 11/22/24 11:15 11/22/24 11:15 Lab Results 11/22/24 11:40 Complete Blood Count: 2 WBC, (4.4-10.8) 9.93 10^3/uL 11/17/24, 16:03 RBC, (3.93-5.22) 4.06 10^6/uL 11/17/24, 16:03 Hgb, (11.2-15.7) 12.1 g/dL 11/17/24, 16:03 Hct, (36.0-46.0) 36.4 % 11/17/24, 16:03 Plt Count, (130-400) 191 10^3/uL 11/17/24, 16:03 Complete Metabolic Panel: 2 Sodium, (136-145) 139 mmol/L Today, 11:40 Potassium, (3.5-5.1) 3.7 mmol/L Today, 11:40 Chloride, (98-107) 106 mmol/L Today, 11:40 Carbon Dioxide, (21.0-32.0) 20.9 mmol/L L Today, 11:40 BUN, (7-18) 11 mg/dL Today, 11:40 Creatinine, (0.55-1.02) 0.9 mg/dL Today, 11:40 Est GFR (CKD-EPI 2020), (mL/min/1.73m2) 63.43 Today, 11:40 Magnesium, (1.8-2.4) 1.8 mg/dL 11/17/24, 16:03 Calcium, (8.5-10.1) 8.3 mg/dL L Today, 11:40 Albumin, (3.4-5.0) 3.1 g/dL L 11/17/24, 16:03 Glucose, (74-106) 123 mg/dL H Today, 11:40 Liver Function Panel: 2 ALT, (14-59) 14 U/L 11/17/24, 16:03 AST, (15-37) 17 U/L 11/17/24, 16:03 Cardiac Panel: 2 Troponin I, (<or=51) 15 ng/L 11/17/24 Pancreas Panel: 2 Lipase, (<78) 36 U/L 11/17/24, 16:03 Thyroid Panel: 2 TSH, (0.36-3.74) 3.93 uIU/mL H 11/16/24, 10:05 Imaging and Studies Imaging and Studies Study information below may be from another EMR and interpreted by another provider. Please see original notes in EMR for more complete details. EKG Summary: 11/17/24: Exam: Resting ECG Reason for Exam: baseline/screening Patient Location: E HR:71 bpm ECG Measurements Heart Rate 71 AXIS NE 183 P 55 QRSd 103 QRS 42 QT 496 T48 QTc 539 Conclusion Sinus rhythm...normal P axis, V-rate 60- 99 Low voltage, precordial leads...precordial leads <1.0mV Prolonged QT interval...QTc >500mS There are no significant changes compared to prior EKG performed on 09/06/2023 at 11:42. I have reviewed and I agree with the emergency room physician's ECG interpretation. Echocardiogram Summary: 09/12/24: Conclusion Normal left ventricular wall thickness and chamber size. Ejection fraction is 45 to 50%. There are no segmental wall motion abnormalities Normal right ventricular size and function Both atria are normal in size Trileaflet aortic valve with trace regurgitation Thickened mitral leaflets with mild regurgitation Estimated right ventricular systolic pressure is 30 mmHg Carotid Artery Summary:: 01/21/22: IMPRESSION: 1. Findings of greater than 70 percent stenosis in the left internal carotid artery. 2. Findings of 50-69 percent stenosis in the right internal carotid artery. 3. Findings of bidirectional flow in the left vertebral artery. This can be seen in cases of early subclavian artery stenosis/occlusion. Anesthesia Assessment and Plan Anesthesia History Personal History: No History of Anesthesia Complications Family History: No Family History of Anesthesia Complications Exercise Tolerance Exercise Tolerance: Metabolic Equivalents>4 Pertinent Negatives Pertinent Negatives: No Symptoms of GERD and No Major Pulmonary Symptoms or Complaints Cardiac & Pulmonary Exam Cardiac Exam: Normal S1/S2 Heart Sounds Pulmonary Exam: Clear Bilateral Breath Sounds Implantable Cardiac Device Does patient have a Pacemaker or an ICD?: No Airway Exam Known Difficult Airway: No Mallampati Class: 2 Mouth Opening: Normal (> 3cm) Thyromental Distance: Greater than 3 cm Neck Range of Motion: Full ROM Neck Circumference: Normal Teeth Condition: Generalized Poor Dentition, Removable Dentures/Plates Upper and Removable Dentures/Plates Lower ASA Classification ASA Score: ASA 3 Emergency Case?: No NPO Status NPO Status: NPO Clears >2 hours, Solids >8 hours Anesthesia Plan Resuscitation Status: Full Code Anesthesia Technique: General Anesthesia Airway Planned: LMA Pain Management: Surgeon and patient request nerve block Monitors Used: Standard Monitors Preoperative Comments:: Repeat BMP completed, sodium 139. Patient offered regional anesthesia for postoperative pain control, understand there is a small risk for nerve injury, but wishes to proceed.
[2024-11-22] MEDS: Lactated Ringers 1,000 ML 80 ML IV (11:42)
[2024-11-22 12:11] LABS: Anion Gap 12.1 mmol/L (3-11); BUN 11 mg/dL (7-18); CO2 20.9 mmol/L (21.0-32.0); Calcium 8.3 mg/dL (8.5-10.1); Chloride 106 mmol/L (98-107); Estimated GFR 63.43 (mL/min/1.73m2); Glucose 123 mg/dL (74-106); Potassium 3.7 mmol/L (3.5-5.1); Sodium 139 mmol/L (136-145)
[2024-11-22 12:30] VITALS: BMI 23.8
--- NOTE | 2024-11-22 12:30 | DI.RAD_ITS ---
Exam(s) XR WRIST RT LIMITED EXAM: XR WRIST RT LIMITED CLINICAL HISTORY: Closed fracture of right distal radius. TECHNIQUE: 2D and realtime digital imaging was performed. COMPARISON: CR XR WRIST RT COMPL NAVICULAR from 11/17/2024 FINDINGS: Hard copy images show placement of a fixation plate along the volar aspect of the distal radius. Please see procedure note for details. Fluoro time: 62seconds RADIATION DOSE DELIVERED: blake Preciado=0.28 mGy
[2024-11-22] MEDS: Celecoxib 200 MG CAP 400 MG PO (12:32)
[2024-11-22 12:39] VITALS: BP 135/84; PULSE 69; RESP 20; TEMP 36.3; O2SAT 94
[2024-11-22] MEDS: ceFAZolin 2 GM/50 ML BAG IVPB (13:06)
[2024-11-22] MEDS: Bupivacaine 0.5% Pres-Free W/EPI 30 ML VIAL (13:33)
--- NOTE | 2024-11-22 13:42 | W.ANESNERVE ---
Nerve Block Single Injection Procedure Date and Time Date Performed: 11/22/24 Procedure Start: 12:48 Location Where Procedure Performed Procedure Location: Day Surgery Unit Reason Performed: Postoperative Analgesia Requesting Provider: Jeremiah Monsalve Timeout Performed Timeout Performed: Yes Monitoring Used ECG, Blood Pressure, SpO2 and See EMR for corresponding vital signs Sterility Sterility: Hand Hygiene, Surgical Cap, Surgical Mask, Sterile Gloves and Chlorhexidine Sedation Given During Procedure Sedation Given (Indicate Dose Given): No Sedation given Patient Mental Status Patient Mental Status: Awake Nerve Block 1st Nerve Block: Laterality: Right Block Type: Axillary Ultrasound Image Saved?: Yes Needle / Catheter Used: 80mm SonoPlex II Local Anesthetic Bolus (Indicate Dose Given): Lidocaine used for local infiltration of skin, Injected in 3-5ml increments after negative blood aspiration and Bupivacaine 0.5% Dose:: 20mL Additives (Indicate Dose Given): None Ultrasound: Sterile probe cover and gel used Nerve Stimulator: Primary Nerve Stimulator Technique, Supplement to Ultrasound use and No twitch or parasthesia noted < 0.5 mA Paresthesia: None Procedure Tolerated: No Complications Procedure Outcome: Successful Procedure Comment: Michael Plaza CRNA assist, Amy NerveGuard utilized. Performed By: Rose Hunter
[2024-11-22 15:12] VITALS: BP 124/80; PULSE 75; RESP 18; TEMP 36.3; O2SAT 95
--- NOTE | 2024-11-22 15:33 | W.ANESPOSTOP ---
Postoperative Evaluation Date, Time and Location Date Performed: 11/22/24 Time Performed: 15:33 Patient Location: Day Surgery Unit Vital Signs Most Recent Imported Vital Signs: Most Recent Vital Signs Temp Pulse Resp BP Pulse Ox 36.3 C L 75 18 124/80 95 11/22/24 15:12 11/22/24 15:12 11/22/24 15:12 11/22/24 15:12 11/22/24 15:12 Pain Score Most Recent Pain Score: Most Recent Pain Score Pain Level 0 11/22/24 15:12 Assessment Mental Status: Awake (Alert & Oriented to Patient Baseline) (Pt. needing to be reoriented here and there, but if fully awake. There was some confusion preop and we will monitor this before discharge.) Airway and Respiratory Function: Patent airway with normal (patient baseline) respiratory exam Cardiovascular Function: Hemodynamically Stable Hydration Status: Adequately Hydrated Nausea & Vomiting: No Nausea or Vomiting Pain: Pt. Denies Any Pain Peripheral Nerve Block: Regional nerve block not resolved at time of post operative discharge
[2024-11-22 15:40] VITALS: BP 130/85; PULSE 71; RESP 18; TEMP 36.2; O2SAT 95
--- NOTE | 2024-11-22 16:15 | W.PM.OP ---
Operative Note Operative Note PRE-OP DIAGNOSIS: Right Distal Radius Fracture POST-OP DIAGNOSIS: same PROCEDURE: Open Reduction and Internal Fixation of Right Distal Radius, 3 Epiphyseal Fragments SURGEON: Jeremiah Monsalve [employer] INST[employer]ER: Milady Varma ANESTHESIA TYPE: General:No Airway and Primary Nerve Block Refer to Anesthesia Record ESTIMATED BLOOD LOSS: 10 PATHOLOGY: none sent TOURNIQUET TIME: 74 COMPLICATIONS: None Patient was transported to: PACU Patient's condition: stable Implants: Synthes Variable Angle Distal Radius Plate Indications: Caitlin is a 84-year-old [id number] female who suffered a fall resulting in a displaced, intra-articular distal radius fracture of the right wrist. Given the deformity, displacement, fracture pattern, and effect on daily function, I recommended surgical fixation. I reviewed the risk of the procedure to include bleeding, infection co-pay, stiffness, damage to nerves and vessels, damage to muscles and tendons, malunion, nonunion, hardware prominence, tendon rupture, need for repeat procedures. Despite these risks, the patient elected to proceed. Findings: There is a distal radius fracture which had 3 primary epiphyseal fragments with some comminution. It was reduced, held with multiple K wires, and fixed with a Synthes volar locking plate. Procedure Description: Caitlin was greeted in the preoperative holding area. The correct patient and site was confirmed and marked. The history and physical was updated. The consent was reviewed the patient and signed. An axillary nerve block was performed in the day surgery unit. The patient was taken to the operating room and placed in the supine position. All bony problems were well-padded. The right arm was placed onto a radiolucent hand table. A nonsterile tourniquet was placed high up on the arm. Prophylactic antibiotics in the form of cefazolin were administered. The left arm was prepped with ChloraPrep and draped in a standard fashion. A timeout was performed for safe surgery. A standard longitudinal incision was made overlying the flexor carpi radialis tendon starting at the distal wrist crease and moving proximally. The skin was incised sharply. The flexor carpi radialis tendon and its sheath is identified. The sheath was opened. The tendon was moved ulnarly in the floor of the sheath was incised. Blunt dissection the flexor pollicis longus muscle belly and tendon were also made radially exposing the pronator quadratus and the distal radius. The printer quadratus was elevated with an ulnar-based flap. This exposed the volar distal radius and the fracture. A nick elevator was used for full exposure of the volar surface of the distal radius. The primary fracture line was exposed. Using a series of elevators, curettes, and knife, the fracture was fully debrided of any fibrous tissue and callus formation. I used a freer elevator to help mobilize the fragments. There is a transverse fracture line going across the distal metaphysis of the distal radius. There was also a sagittal split extending from this fracture into the joint. These 2 fragments stayed connected but were easily mobile independently and I used a Shiprock to help bring them in plane with each other. There was an additional fragment seen with the radial styloid and then there was also a separate dorsal rim fragment. These were manipulated with traction on the hand along with a Shiprock elevator and direct manipulation. I utilized fluoroscopy to help guide the reduction and once reduction of the radial styloid was complete I placed a single K wire through from the radial styloid into the radial shaft. This did reduce the radial segment with direct visualization and fluoroscopy that there was still some step-off with the ulnar epiphyseal fragment. I utilized a Shiprock elevator and then traction on the thumb to help reduce this fragment. I then placed another K wire through the distal ulna and into the distal radius through this ulnar segment and then into the radial segment as well. This seemed to secure the fracture reduction. Fluoroscopy is utilized to confirm appropriate reduction. There is some slight dorsal tilt but still relatively neutral alignment at this point. I then selected a standard 3 hole Synthes distal radius plate. This was placed onto the distal radius and appear to be of appropriate position. Given the fracture orientation I did have to place the plate slightly more distal than expected. However, it seemed to fit well and it was secured with a single K wire distally to determine appropriate angle of the screws and to secure it distally as well as a K wire proximally. A single nonlocking screw was placed to the distal portion of the plate securing the plate against the bone of the distal radial metaphysis. Once again, the plate was evaluated to make sure it was aligned appropriately. The single screw was also checked to make sure it was in appropriate positioning for trajectory of future screws. The remainder of the screws within the volar locking plate were filled with locking screws. These were made sure not to penetrate the dorsal cortex. Once these were applied the proximal portion of the plate was further reduced down onto the shaft, which further reduce the distal segment. This was held in position with a tightened reduction K wire. Fluoroscopy was then used against confirm appropriate reduction. Nonlocking screws were placed within the 3 shaft screw holes. Final x-rays were obtained which demonstrated adequate reduction and positioning of hardware. There was some mild translation of the fracture and maybe some mild loss of radial inclination but the joint reduction appeared to be nearly anatomic. The dorsal sunrise view was also obtained to ensure correct sizing of screws. The wound was then thoroughly irrigated. The pronator quadratus was reapproximated with a 0 Vicryl. The tourniquet was released and there was no notable vascular injury. The fingers were warm and well-perfused. The deep dermal layer was closed with a 3-0 Vicryl. The skin was closed with 4-0 nylon. The wound was dressed with Xeroform, 4 x 4's, web roll. A short arm splint was applied. At the end the case all counts are correct. Patient was transferred back to the PACU in stable condition. Date of Procedure: 11/22/24
== END 2024-11-22 16:10 | disposition home or self-care (01) ==
LOC: SUR 10:55
PROVIDERS: Student in an Organized Health Care Education/Training Program; Visit Provider Student in an Organized Health Care Education/Training Program
PROC: (CPT 25609; principal; 2024-11-22 15:00)
DX: S52.571A Other intraarticular fracture of lower end of right radius, initial encounter for closed fracture (principal); E87.1 Hypo-osmolality and hyponatremia; R29.6 Repeated falls; W19.XXXA Unspecified fall, initial encounter; G89.18 Other acute postprocedural pain
CPT/HCPCS: 25609; C1889; 36415; 64417; 76000; 76942; 80048; 73100; J0665; J0690; J1100; J2371; J2405; J2704

== ENCOUNTER 2024-12-05 12:55 | Outpatient (CLI) | payer MEDICARE, SELFPAY ==
--- NOTE | 2024-12-05 11:00 | DI.RAD_ITS ---
Exam(s) XR WRIST RT COMPLETE EXAM: XR WRIST RT COMPLETE CLINICAL HISTORY: right wrist ORIF. TECHNIQUE: 2D digital imaging was performed. Six images were obtained. PA, lateral and oblique views were obtained. COMPARISON: CR XR WRIST RT COMPL NAVICULAR from 11/17/2024 CR XR WRIST RT LIMITED from 11/22/2024 FINDINGS: BONES: There are post operative changes of internal fixation of the distal radial fracture present. There appears to be increased dorsal impaction of the fracture compared to the prior examination. No new fracture or dislocation. There is a lucency noted through the ulnar styloid process consistent with a nondisplaced ulnar styloid process fracture. JOINTS: There are degenerative changes seen in at the 1st CMC joint. SOFT TISSUE: There is soft tissue swelling of the wrist. IMPRESSION: 1. Postsurgical changes of internal fixation of the distal radial fracture. There does appear to be increased impaction of the fracture dorsally. 2. Ulnar styloid process fracture. 3. Soft tissue swelling of the right wrist. DATA REPOSITORY: RADIATION DOSE DELIVERED:
== END 2024-12-05 12:56 | disposition home or self-care (01) ==
LOC: DIORS 12:55
PROVIDERS: Visit Provider Physician Assistant
DX: S52.501D Unspecified fracture of the lower end of right radius, subsequent encounter for closed fracture with routine healing (principal); X58.XXXD Exposure to other specified factors, subsequent encounter
CPT/HCPCS: 99024; 73110

== ENCOUNTER 2024-12-19 13:22 | Outpatient (CLI) | payer MEDICARE, SELFPAY ==
--- NOTE | 2024-12-19 11:10 | DI.RAD_ITS ---
Exam(s) XR WRIST RT LIMITED EXAM: XR WRIST RT LIMITED CLINICAL HISTORY: F/U R WRIST FX. TECHNIQUE: 2D digital imaging was performed. Two images were obtained. PA and lateral views were obtained. COMPARISON: CR XR WRIST RT LIMITED from 11/22/2024 CR XR WRIST RT COMPLETE from 12/05/2024 FINDINGS: BONES: There are stable post operative changes of internal fixation of the distal radial fracture present. The orthopedic hardware and alignment of the distal radius is stable compared to the examination from 12/05/2024.. There is no change in alignment of the ulnar styloid process fracture. JOINTS: The joint spaces are well maintained. There are stable degenerative changes seen in the wrist. SOFT TISSUE: Normal. IMPRESSION: Stable postoperative changes compared to 12/05/2024. DATA REPOSITORY: RADIATION DOSE DELIVERED:
--- NOTE | 2024-12-19 11:10 | DI.RAD_ITS ---
Exam(s) XR SHOULDER RT COMPLETE 2+V EXAM: XR SHOULDER RT COMPLETE 2+V CLINICAL HISTORY: right shoulder pain. TECHNIQUE: 2D digital imaging was performed of the right shoulder. Two images were obtained. Grashey and axillary views were obtained. COMPARISON: CR XR SHOULDER RT COMPLETE 2+V from 06/27/2024 FINDINGS: BONES: No acute fracture is present. No bony destructive lesion is seen. JOINTS: No dislocation present. Moderate degenerative changes are seen at the acromioclavicular joint. Mild spurring is seen at the inferior aspect of the glenoid, but the glenohumeral joint is otherwise well maintained. SOFT TISSUE: Normal. IMPRESSION: Degenerative changes of the right shoulder, particularly at the acromioclavicular joint. DATA REPOSITORY: RADIATION DOSE DELIVERED:
== END 2024-12-19 13:23 | disposition home or self-care (01) ==
LOC: DIORS 13:22
PROVIDERS: Visit Provider Student in an Organized Health Care Education/Training Program
DX: S52.501D Unspecified fracture of the lower end of right radius, subsequent encounter for closed fracture with routine healing (principal); X58.XXXD Exposure to other specified factors, subsequent encounter; M25.511 Pain in right shoulder; M75.81 Other shoulder lesions, right shoulder
CPT/HCPCS: 99213; 73030; 73100

== ENCOUNTER 2025-01-16 11:59 | Outpatient (CLI) | payer MEDICARE, SELFPAY ==
--- NOTE | 2025-01-16 10:30 | DI.RAD_ITS ---
Exam(s) XR WRIST RT LIMITED EXAM: XR WRIST RT LIMITED CLINICAL HISTORY: S/P ORIF R WRIST. TECHNIQUE: 2D digital imaging was performed. Two images were obtained. PA and lateral views were obtained. COMPARISON: CR XR WRIST RT LIMITED from 12/19/2024 FINDINGS: BONES: There are stable post operative changes of internal fixation of the distal right radial fracture there is increased callus formation about the fracture consistent with some interval healing. The fracture lines are still visualized. The comminuted ulnar styloid process fracture is still present. No new fracture or dislocation. The bones are osteopenic. JOINTS: There are degenerative changes seen in the wrist. SOFT TISSUE: Normal. IMPRESSION: Stable postoperative changes. DATA REPOSITORY: RADIATION DOSE DELIVERED:
== END 2025-01-16 12:00 | disposition home or self-care (01) ==
LOC: DIORS 12:00
PROVIDERS: Visit Provider Physician Assistant
DX: Z47.89 Encounter for other orthopedic aftercare (principal); S52.501D Unspecified fracture of the lower end of right radius, subsequent encounter for closed fracture with routine healing; X58.XXXD Exposure to other specified factors, subsequent encounter
CPT/HCPCS: 99024; 73100